=== PATIENT | male | born 1945 | race Caucasian/White ===

== ENCOUNTER 2022-01-17 03:32 | Observation (INO) | payer MEDICARE, OTHER ==
[2022-01-17] MEDS ORDERED: SODIUM CHLORIDE 0.9% 1,000 ML IV STA (03:44)
[2022-01-17] MEDS ORDERED: MORPHINE SULFATE 4 MG/ML SYRINGE IV STA (03:44)
--- NOTE | 2022-01-17 03:46 | ED ---
Chest Pain HPI - General Stated Complaint: Chest Pain Time Seen by Provider: 01/17/22 03:44 Review of Systems ROS Statement: Those systems with pertinent positive or pertinent negative responses have been documented in the HPI. ROS Other: All systems not noted in ROS Statement are negative. EKG Findings - EKG Comments: EKG Findings:: EKG is A. fib 54 QRS 86 QTc 410 Course Vital Signs 01/17/22 03:47 Pulse Rate 56 L Respiratory 20 Rate Blood Pressure 186/92 O2 Sat by Pulse 98 Oximetry Disposition Clinical Impression: Atypical chest pain, Chest pain Disposition: ADMITTED IP TO THIS HOSP Condition: Undetermined Instructions (If sedation given, give patient instructions): Chest Pain (ED) Is patient prescribed a controlled substance at d/c from ED?: No Referrals: Nonstaff,Physician [Primary Care Provider] - 1-2 days
--- NOTE | 2022-01-17 04:59 | XR ---
EXAMINATION TYPE: XR chest 1V portable DATE OF EXAM: 01/17/2022 COMPARISON: NONE HISTORY: Chest pain TECHNIQUE: FINDINGS: There is coarsening of the interstitial markings. No obvious heart failure. Heart is top no rmal in size. No definite pleural effusion. There are chest leads. IMPRESSION: Coarse lung markings could be fibrosis. No obvious heart failure.
[2022-01-17 05:18] LABS: Basophils % (A) 0 %; Eosinophils # (A) 0.2 k/uL (0-0.7); Eosinophils % (A) 2 %; HCT 45.8 % (39.0-53.0); HGB 14.3 gm/dL (13.0-17.5); Hypochromasia Slight; Lymphocytes % (A) 8 %; MCH 30.8 pg (25.0-35.0); MCHC 31.2 g/dL (31.0-37.0); MCV 98.8 fL (80.0-100.0); Mean Platelet Volume 10.1; Monocytes # (A) 0.6 k/uL (0-1.0); Monocytes % (A) 5 %; Neutrophils # (A) 10.3 k/uL (1.3-7.7); Neutrophils % (A) 84 %; Platelet Count 168 k/uL (150-450); RBC 4.63 m/uL (4.30-5.90); WBC 12.3 k/uL (3.8-10.6)
[2022-01-17 05:22] LABS: Partial Thromboplastin Time 23.1 sec (22.0-30.0)
[2022-01-17] MEDS ORDERED: NITROGLYCERIN SL TABS 0.4 MG TAB SUBLINGUAL PRN (05:27)
[2022-01-17] MEDS ORDERED: ASPIRIN 81 MG PO STA (05:27)
[2022-01-17 05:29] LABS: Albumin 4.3 g/dL (3.5-5.0); Calcium 9.5 mg/dL (8.4-10.2); Magnesium 1.4 mg/dL (1.6-2.3); Phosphorus 3.7 mg/dL (2.5-4.5); Potassium 4.5 mmol/L (3.5-5.1); Total Bilirubin 0.6 mg/dL (0.2-1.3); Total Protein 7.9 g/dL (6.3-8.2)
[2022-01-17] MEDS ORDERED: HEPARIN SODIUM 1,000 UN/ML (10ML VL) IV ONE (12:54)
[2022-01-17] MEDS ORDERED: HEPARIN SODIUM 1,000 UN/ML (10ML VL) IV PRN (12:54)
[2022-01-17] MEDS ORDERED: HEPARIN SOD,PORK IN 0.45% NACL 25,000 UNIT in 0.45% NACL 1 250ML.BAG IV SCH (13:00)
--- NOTE | 2022-01-17 13:05 | P.CRDCN ---
History of Present Illness Consult date: 01/17/22 History of present illness: History of Present Illness: The patient is a 76-year-old male who was transferred from [facility] in [place] with symptoms of chest discomfort. According to him he woke up with severe chest discomfort, worsening dyspnea that persisted and he was brought in to the emergency room. 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 He is very limited in his physical activity. He has dyspnea on exertion but denies significant chest discomfort in the past. He was noted to be in atrial fibrillation in the emergency room. Reviewing the papers from the snf the patient has a prior history of atrial fibrillation but unfortunately the list of his medication is not available. It is unclear if he had a prior history of obstructive CAD. According to the patient he heard the word atrial fibrillation but cannot recall that he was diagnosed with that. He cannot recall if he is on anticoagulation. He has chronic peripheral edema. He denies any dizziness or palpitation. He denies any PND or orthopnea. He has a history of hypertension, he is a nonsmoker. His lipid profile is not available to me. Medications: The list from the snf is not available Review of Systems: Respiratory: The patient has dyspnea on exertion but no recent wheezing or cough GI: No nausea or vomiting . No history of peptic ulcer disease. No recent GI bleed. : No hematuria or dysuria. Nervous System: No seizure. He has prior history of stroke twice with significant hemiplegia Physical Examination: 76-year-old male alert no apparent distress, obese,Blood pressure 160/80, Heart rate 70 Head: Normocephalic. Eyes: Sclerae nonicteric. Neck: Good carotid upstroke, no bruit, no jugular venous distention. Lungs: Clear to auscultation. Heart: Irregular rate and rhythm, S1-S2, no S3, no rub. Systolic ejection murmur. Abdomen: Soft nontender, positive bowel sounds no organomegaly. Extremities: +2 on the right and +1 on the left edema, intact distal pulses. Evidence of hemiplegia with right-sided weakness Labs: Hemoglobin 14.3, BUN 29, creatinine 1.46. Potassium 4.5. Troponin less than 0.012, chest x-ray no evidence of heart failure EKG: Atrial fibrillation with nonspecific ST-T wave changes Impression: 1. Chest discomfort of unclear etiology, no evidence of acute coronary syndrome. Could be related to GI origin 2. Atrial fibrillation appears to be chronic, anticoagulation status unclear 3. History of hypertension 4. History of stroke 5. Abnormal renal function of unknown duration 6. Peripheral edema Plan: 1. Obtain list of medication from the snf 2. Start IV heparin pending the list of the medication 3. Add beta chhaya, nitrate and statin 4. Obtain an echocardiogram with Doppler 5. Obtain a nuclear scan to rule out significant ischemic heart disease 6. Follow renal functions 7. Start IV Lasix and check NT proBNP 8. Depending on the results of the testing and the records from the snf further recommendations will be made. Thank you for this consult we will follow with you. Medications and Allergies Allergies Allergy/AdvReac Type Severity Reaction Status Date / Time No Known Allergies Allergy Verified 01/17/22 05:35 Physical Exam Vitals: Vital Signs Temp Pulse Pulse Resp BP Pulse Ox 01/17/22 09:51 98.4 F 70 20 160/88 98 01/17/22 05:39 67 20 168/84 01/17/22 03:59 67 01/17/22 03:47 56 L 20 186/92 98 Intake and Output 01/16/22 01/17/22 01/17/22 22:59 06:59 14:59 Other: Weight 129.727 kg Results 01/17/22 04:34 01/17/22 04:34 Cardiac Enzymes 01/17/22 01/17/22 01/17/22 Range/Units 04:34 04:34 07:39 AST 20 (17-59) U/L Troponin I <0.012 <0.012 (0.000-0.034) ng/mL 01/17/22 Range/Units 11:45 AST (17-59) U/L Troponin I <0.012 (0.000-0.034) ng/mL Coagulation 01/17/22 Range/Units 04:34 PT 11.0 (9.0-12.0) sec APTT 23.1 (22.0-30.0) sec CBC 01/17/22 Range/Units 04:34 WBC 12.3 H (3.8-10.6) k/uL RBC 4.63 (4.30-5.90) m/uL Hgb 14.3 (13.0-17.5) gm/dL Hct 45.8 (39.0-53.0) % Plt Count 168 (150-450) k/uL Comprehensive Metabolic Panel 01/17/22 Range/Units 04:34 Sodium 138 (137-145) mmol/L Potassium 4.5 (3.5-5.1) mmol/L Chloride 95 L (98-107) mmol/L Carbon Dioxide 26 (22-30) mmol/L BUN 29 H (9-20) mg/dL Creatinine 1.46 H (0.66-1.25) mg/dL Glucose 157 H (74-99) mg/dL Calcium 9.5 (8.4-10.2) mg/dL AST 20 (17-59) U/L ALT 18 (4-49) U/L Alkaline Phosphatase 97 (38-126) U/L Total Protein 7.9 (6.3-8.2) g/dL Albumin 4.3 (3.5-5.0) g/dL Current Medications Generic Name Dose Route Start Last Admin Trade Name Freq PRN Reason Stop Dose Admin Aspirin 325 mg 01/18/22 12:00 Aspirin 325 Mg Tab PO DAILY MERI Nitroglycerin 0.4 mg 01/17/22 05:27 Nitroglycerin Sl Tabs 0.4 Mg Tab SUBLINGUAL Q5M PRN Chest Pain Intake and Output 01/16/22 01/17/22 01/17/22 22:59 06:59 14:59 Other: Weight 129.727 kg 01/17/22 04:34 01/17/22 04:34
[2022-01-17] MEDS: NITROGLYCERIN OINT 1 INCH/GM PACKET TOPICAL SCH (13:14)
[2022-01-17] MEDS: FUROSEMIDE 10 MG/ML 4 ML VIAL IV SCH (13:14)
[2022-01-17] MEDS: ATORVASTATIN 40 MG TAB PO SCH (13:14)
[2022-01-17] MEDS: PANTOPRAZOLE 40 MG TABLET PO SCH (13:14)
[2022-01-17] MEDS: METOPROLOL TARTRATE 25 MG TAB PO SCH (13:14)
--- NOTE | 2022-01-17 13:20 | P.HPIM ---
History of Present Illness H&P Date: 01/17/22 Patient is a 76-year-old male with PMH of hypertension, glaucoma, BPH, GERD and diabetes mellitus that presents the ED for chest pain. Patient reports waking up last night with chest pain. Chest pain is substernal, pressure-like in nature with no radiation. He took his blood pressure noted to be 220s over 100s. He does not know which antihypertensive medication he takes. He attempted to take Tylenol and Tums without relief. He did state that nitroglycerin helped. He currently denies any chest pain. He reports chronic right lower extremity edema. He denies any headache, nausea or vomiting, fever chills, cough, shortness of breath, palpitations, changes in urination or bowel habits. No changes in appetite or weight. He denies any dizziness, numbness/weakness/tingling of the extremities. In the ED, he was noted to have a BP of 186/92. Vital signs were otherwise stable. CBC shows leukocytosis of 12.3. Coagulation panel negative. CMP showed chloride of 95, BUN of 29, creatinine 1.46 and glucose 157. Lactic acid 2.2. Magnesium level was 1.4. Troponin was less than 0.0123 with EKG showing atrial fibrillation with slow ventricular response. Chest x-ray showed findings of pulmonary fibrosis. Patient is admitted for chest pain, rule out acute coronary syndrome with ca rdiology consultation. Review of systems is negative except above. General: [non toxic], [no distress], [appears at stated age] Derm: [warm], [dry] Head: [atraumatic], [normocephalic], [symmetric] Eyes: [EOMI], [no lid lag], [anicteric sclera] Mouth: [no lip lesion], [mucus membranes moist] Cardiovascular: [Irregularly irregular], [no murmur], [positive DP pulse bilateral], Lungs: [CTA bilateral], [no rhonchi, no rales] , [no accessory muscle use] Abdominal: [soft], [ nontender to palpation], [no guarding], [no appreciable organomegaly] Ext: [no gross muscle atrophy], [2+ pitting edema right lower extremity], [no contractures] Neuro: [ CN II-XI grossly intact], [no focal neuro deficits] Psych: [Alert], [oriented], [appropriate affect] #Chest pain #Hypertensive urgency #Atrial fibrillation #Lactic acidosis #Acute kidney injury versus chronic kidney disease #Leukocytosis #Right lower extremity swelling #Hypomagnesemia #Diabetes mellitus #BPH #Glaucoma #Depression Patient presents with chest pain likely related to hypertensive urgency. Troponins have been trended and ACS has been ruled out. Cardiology has been consulted and recommended echocardiogram, nuclear stress test. He has been started on aspirin 81 mg by mouth daily and Lipitor 40 mg by mouth daily. Cardiology started heparin drip. Cardiology started Lasix 40 mg IV twice a day. Telemetry monitoring. Patient has been started on metoprolol 25 mg by mouth twice a day. Restart home medications Losartan 100 mg PO QD. His vital signs will be monitored and medication adjusted if necessary. Continue Metoprolol as above. Patient reports previous history of abnormal heart rhythm. He is not on any anticoagulation. Continue Heparin drip as above. Maintain K > 4 and Mg > 2. Likely related to dehydration. Resolved with IV hydration. Possibly on chronic kidney disease. Unknown baseline. Avoid nephrotoxins. R epeat BMP tomorrow morning. Leukocytosis likely reactive. No signs of active infection. Repeat CBC tomorrow morning. Obtain duplex to rule out DVT. Magnesium 1.4. Magnesium sulfate for gram IV ordered today. Repeat magnesium level tomorrow. Low dose insulin sliding scale with accuchecks QID and hypoglycemic precautions. Restart Flomax. Restart Latanoprost eye drops. Restart Paxil. DVT prophylaxis: [Heparin drip] Discussed with: [Patient] Anticipated discharge: [1-2 days] Anticipated discharge place: [Home] A total of [40] minutes was spent on the care of this complex patient more than 50% of the time was spent in counseling and care coordination. Patient names his Francy decision maker if he can't make decisions for himself. Patient would like to be full code. Medications and Allergies Allergies Allergy/AdvReac Type Severity Reaction Status Date / Time No Known Allergies Allergy Verified 01/17/22 05:35 Physical Exam Vitals: Vital Signs Temp Pulse Pulse Resp BP Pulse Ox 01/17/22 09:51 98.4 F 70 20 160/88 98 01/17/22 05:39 67 20 168/84 01/17/22 03:59 67 01/17/22 03:47 56 L 20 186/92 98 Intake and Output 01/16/22 01/17/22 01/17/22 22:59 06:59 14:59 Other: Weight 129.727 kg Results CBC & Chem 7: 01/17/22 04:34 01/17/22 04:34 Labs: Abnormal Lab Results - Last 24 Hours (Table) 01/17/22 01/17/22 01/17/22 Range/Units 04:34 04:34 04:34 WBC 12.3 H (3.8-10.6) k/uL Neutrophils # 10.3 H (1.3-7.7) k/uL Chloride 95 L (98-107) mmol/L BUN 29 H (9-20) mg/dL Creatinine 1.46 H (0.66-1.25) mg/dL Glucose 157 H (74-99) mg/dL Plasma Lactic Acid Bertram 2.2 H* (0.7-2.0) mmol/L Magnesium 1.4 L (1.6-2.3) mg/dL
[2022-01-17] MEDS: LOSARTAN 50 MG TAB PO SCH (13:52)
[2022-01-17] MEDS: MAGNESIUM SULFATE-D5W PMX 1 GM in DEXTROSE/WATER 1 100ML.BAG IVPB SCH ×3 (13:54→18:57)
--- NOTE | 2022-01-17 14:02 | US ---
EXAMINATION TYPE: US venous doppler duplex LE RT DATE OF EXAM: 01/17/2022 1:21 PM COMPARISON: NONE CLINICAL HISTORY: 76-year-old male rule out DVT. Right leg swelling, patient on blood thinners SIDE PERFORMED: Right TECHNIQUE: The lower extremity deep venous system is examined utilizing real time linear array sonog ben with graded compression, doppler sonography and color-flow sonography. FINDINGS: VESSELS IMAGED: Common Femoral Vein Deep Femoral Vein Greater Saphenous Vein * Femoral Vein Popliteal Vein Small Saphenous Vein * Proximal Calf Veins (* superficial vessels) Charrer notes: Difficult and limited study due to morbidly obese patient, EIV, GSV, CFV and DFV not imaged due to patient's pannus covering his upper thighs Right Leg: Visualized portions appear negative for DVT IMPRESSION: Limited assessment. 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 No DVT visualiz ed within the right femoral vein down into the upper calf veins.
[2022-01-17 14:58] LABS: Basophils % (A) 0 %; Eosinophils # (A) 0.2 k/uL (0-0.7); Eosinophils % (A) 2 %; HCT 45.6 % (39.0-53.0); HGB 14.4 gm/dL (13.0-17.5); Lymphocytes # (A) 1.3 k/uL (1.0-4.8); Lymphocytes % (A) 12 %; MCHC 31.6 g/dL (31.0-37.0); MCV 98.1 fL (80.0-100.0); Monocytes # (A) 0.7 k/uL (0-1.0); Monocytes % (A) 7 %; Neutrophils # (A) 8.8 k/uL (1.3-7.7); Neutrophils % (A) 79 %; Platelet Count 164 k/uL (150-450); RBC 4.65 m/uL (4.30-5.90); RDW 13.8 % (11.5-15.5); WBC 11.2 k/uL (3.8-10.6)
[2022-01-17 15:09] LABS: INR 1.1 (<1.2); Partial Thromboplastin Time 48.6 sec (22.0-30.0); Prothrombin Time 11.6 sec (9.0-12.0)
[2022-01-17 18:06] LABS: Glucose,Whole Blood 124 mg/dL (70-110)
[2022-01-17] MEDS: INSULIN ASPART (NovoLOG) 100 UNIT/ML VIAL SQ SCH (18:45)
[2022-01-17 22:34] LABS: Glucose,Whole Blood 113 mg/dL (70-110)
[2022-01-18] MEDS: MAGNESIUM SULFATE-D5W PMX 1 GM in DEXTROSE/WATER 1 100ML.BAG IVPB SCH (00:20)
[2022-01-18] MEDS: FUROSEMIDE 10 MG/ML 4 ML VIAL IV SCH ×3 (00:20→21:04)
[2022-01-18] MEDS: INSULIN ASPART (NovoLOG) 100 UNIT/ML VIAL SQ SCH ×5 (00:21→21:05)
[2022-01-18] MEDS: LATANOPROST 0.005% OPHTH DROPS 2.5 ML BTL BOTH EYES SCH ×2 (00:21→21:05)
[2022-01-18] MEDS: PARoxetine 10 MG TAB PO SCH ×2 (00:21→21:06)
[2022-01-18] MEDS: METOPROLOL TARTRATE 25 MG TAB PO SCH ×3 (00:21→21:06)
[2022-01-18] MEDS: NITROGLYCERIN OINT 1 INCH/GM PACKET TOPICAL SCH ×4 (00:43→21:06)
[2022-01-18 01:57] LABS: Basophils % (A) 0 %; Eosinophils # (A) 0.1 k/uL (0-0.7); Eosinophils % (A) 2 %; HCT 38.1 % (39.0-53.0); Hypochromasia Slight; Lymphocytes # (A) 0.8 k/uL (1.0-4.8); Lymphocytes % (A) 9 %; MCH 30.9 pg (25.0-35.0); MCHC 31.4 g/dL (31.0-37.0); MCV 98.3 fL (80.0-100.0); Mean Platelet Volume 9.9; Monocytes # (A) 0.7 k/uL (0-1.0); Monocytes % (A) 8 %; Neutrophils # (A) 7.1 k/uL (1.3-7.7); Neutrophils % (A) 80 %; Platelet Count 125 k/uL (150-450); RBC 3.87 m/uL (4.30-5.90); RDW 13.8 % (11.5-15.5); WBC 8.8 k/uL (3.8-10.6)
[2022-01-18 02:52] LABS: INR 1.1 (<1.2); Prothrombin Time 11.3 sec (9.0-12.0)
[2022-01-18] MEDS ORDERED: CAFFEINE CITRATE 60 MG/3 ML VIAL IV PRN (06:00)
[2022-01-18] MEDS ORDERED: REGADENOSON 0.4 MG/5 ML SYRINGE IV PRN (06:00)
[2022-01-18] MEDS ORDERED: AMINOPHYLLINE 500 MG/20 ML VIAL IV PRN (06:00)
--- NOTE | 2022-01-18 06:37 | P.PN ---
Subjective Progress Note Date: 01/18/22 Principal diagnosis: Chest discomfort This is a 76-year-old gentleman with a past medical history significant for atrial fibrillation of unknown etiology not on oral anticoagulation at home was admitted to the hospital for an extended care facility to the hospital with a chest discomfort and ruled out for acute coronary event. He was seen this morning. He still have a mild ongoing chest discomfort. Acute coronary event was ruled out. Vitals are stable. He is in process of having a stress test as well as an echocardiogram. Currently he is on heparin IV. He to be switched into oral anticoagulation later on today. Further recommendation to follow the stress test and echocardiogram. Objective - Vital Signs Vital signs: Vital Signs Temp 98.3 F 01/18/22 02:00 Pulse 75 01/18/22 02:00 Resp 20 01/17/22 20:03 BP 124/70 01/18/22 02:00 Pulse Ox 97 01/18/22 02:00 FiO2 Intake & Output 01/17/22 01/17/22 01/18/22 06:59 18:59 06:59 Intake Total 136.18 Output Total 1200 Balance -1063.82 Weight 129.727 kg 129.727 kg Intake: Intake, IV Titration 136.18 Amount Heparin Sod,Pork in 0.45% 136.18 NaCl 25,000 unit In 0.45 % NaCl 1 250ml.bag @ 7. 709 UNITS/KG/HR 10.001 mls/hr IV .Q24H MERI Rx#: [id number] Output: Urine 1200 Other: Voiding Method External Catheter # Voids 600 - Constitutional General appearance: Present: no acute distress - Respiratory Respiratory: bilateral: CTA - Cardiovascular Rhythm: irregularly irregular Heart sounds: normal: S1, S2 - Labs CBC & Chem 7: 01/18/22 01:34 01/17/22 04:34 Labs: Abnormal Lab Results - Last 24 Hours (Table) 01/17/22 01/17/22 01/17/22 Range/Units 14:26 14:26 18:05 WBC 11.2 H (3.8-10.6) k/uL RBC (4.30-5.90) m/uL Hgb (13.0-17.5) gm/dL Hct (39.0-53.0) % Plt Count (150-450) k/uL Neutrophils # 8.8 H (1.3-7.7) k/uL Lymphocytes # (1.0-4.8) k/uL APTT 48.6 H (22.0-30.0) sec POC Glucose (mg/dL) 124 H (70-110) mg/dL 01/17/22 01/17/22 01/18/22 Range/Units 19:25 22:33 01:34 WBC (3.8-10.6) k/uL RBC 3.87 L (4.30-5.90) m/uL Hgb 12.0 L (13.0-17.5) gm/dL Hct 38.1 L (39.0-53.0) % Plt Count 125 L (150-450) k/uL Neutrophils # (1.3-7.7) k/uL Lymphocytes # 0.8 L (1.0-4.8) k/uL APTT 31.0 H (22.0-30.0) sec POC Glucose (mg/dL) 113 H (70-110) mg/dL Assessment and Plan Assessment: Assessment #1 atypical chest discomfort #2 atrial fibrillation of unknown etiology Plan #1 acute coronary event was ruled out #2 follow-up with the patient after the stress test and echo Continue IV heparin for now
[2022-01-18 07:17] LABS: Glucose,Whole Blood 99 mg/dL (70-110)
[2022-01-18] MEDS ORDERED: REGADENOSON 0.4 MG/5 ML SYRINGE IV ONE (08:00)
[2022-01-18] MEDS: TAMSULOSIN 0.4 MG CAP.ER.24H PO SCH (08:01)
[2022-01-18] MEDS: metOLazone 5 MG TAB PO SCH (08:02)
[2022-01-18] MEDS: ATORVASTATIN 40 MG TAB PO SCH (08:02)
[2022-01-18] MEDS: PANTOPRAZOLE 40 MG TABLET PO SCH (08:02)
[2022-01-18] MEDS: LOSARTAN 50 MG TAB PO SCH (08:02)
[2022-01-18 08:11] LABS: African American GFR (CKD) 59 (>60 ml/min/1.73 sqM); Anion Gap 14 mmol/L; Blood Urea Nitrogen 32 mg/dL (9-20); Calcium 9.2 mg/dL (8.4-10.2); Carbon Dioxide 27 mmol/L (22-30); Chloride 95 mmol/L (98-107); Glucose 109 mg/dL (74-99); Non-African American GFR(CKD) 51 (>60 ml/min/1.73 sqM); Potassium 3.9 mmol/L (3.5-5.1); Sodium 136 mmol/L (137-145)
[2022-01-18 09:52] LABS: LDL Cholesterol,Calculated 88.3 mg/dL (0.0-131.0)
[2022-01-18 10:48] LABS: HCT 45.5 % (39.6-50.0); HGB 14.7 g/dL (13.0-17.0); MCH 30.9 pg (27.0-32.0); MCHC 32.3 g/dL (32.0-37.0); MCV 95.6 fL (80.0-97.0); Mean Platelet Volume 12.2 fL (9.5-12.2); NRBC Per 100 WBC 0 /100 WBCS (0.0-0.0); Platelet Count 146 X 10*3/uL (140-440); RBC 4.76 X 10*6/uL (4.40-5.60); RDW 14.2 % (11.5-14.5)
--- NOTE | 2022-01-18 11:34 | CA ---
Transthoracic Echo Report Name: Babar Altamirano Age: 76 Gender: M : 1945 Exam Date: 01/18/2022 08:24 Exam Location: [facility] Ht (in): 70 Wt (lb): 286 Ordering Physician: Joan Quinonez MD ([id number]) Attending/Referring Phys: Clinical Informatics Educator Gris Zhang RDCS Procedure CPT: Indications: CP Cardiac Hx: Technical Quality: Fair Contrast 1: Total Dose (mL): Contrast 2: Total Dose (mL): MEASUREMENTS (Male / Female) Normal Values 2D ECHO LV Diastolic Diameter PLAX 3.9 cm 4.2 - 5.9 / 3.9 - 5.3 cm LV Systolic Diameter PLAX 3.4 cm IVS Diastolic Thickness 1.8 cm 0.6 - 1.0 / 0.6 - 0.9 cm LVPW Diastolic Thickness 1.6 cm 0.6 - 1.0 / 0.6 - 0.9 cm LV Relative Wall Thickness 0.9 RV Internal Dim ED PLAX 2.6 cm LA Volume 74.7 cm??? 18 - 58 / 22 - 52 cm??? M-MODE Aortic Root Diameter MM 3.5 cm LA Systolic Diameter MM 5.2 cm LA Ao Ratio MM 1.5 AV Cusp Separation MM 2.0 cm DOPPLER AV Peak Velocity 80.3 cm/s AV Peak Gradient 2.6 mmHg LVOT Peak Velocity 80.5 cm/s LVOT Peak Gradient 2.6 mmHg MV E' Velocity 6.3 cm/s FINDINGS Left Ventricle Severely increased septal wall thickness. Normal left ventricular systolic function with no obvious regional wall motion abnormalities. Left ventricular ejection fraction is estimated at 55-60 %. Right Ventricle Normal right ventricular size and function. Right ventricular systolic pressure within normal limits. Right Atrium Normal right atrial size. Left Atrium Moderately increased left atrial volume. Mitral Valve Mild mitral regurgitation. Aortic Valve No aortic valve stenosis or regurgitation. Tricuspid Valve Mild tricuspid regurgitation. Pulmonic Valve Structurally normal pulmonic valve. Trace pulmonic regurgitation. Pericardium No pericardial effusion. Aorta Normal size aortic root and proximal ascending aorta. CONCLUSIONS Normal left ventricular dimension and systolic function Overall technically difficult study for interpretation Previewed by: Dr. Quintin Raza MD (Electronically Signed) Final Date: 18 January 2022 11:33
[2022-01-18] MEDS ORDERED: ASPIRIN 325 MG TAB PO SCH (12:00)
[2022-01-18 13:44] LABS: Glucose,Whole Blood 102 mg/dL (70-110)
[2022-01-18 14:47] LABS: Chol/HDL Ratio 3.14 Ratio; LDL Cholesterol,Calculated 68.5 mg/dL (0.0-131.0)
--- NOTE | 2022-01-18 15:48 | NM ---
EXAMINATION TYPE: NM stress lexiscan cardiolite DATE OF EXAM: 01/18/2022 COMPARISON: NONE HISTORY: 76-year-old male with chest pain TECHNIQUE: After the intravenous administration of 10.6 mCi Tc 99m Sestamibi - Cardiolite resting SP ECT images acquired 125 minutes post injection. The patient received 0.4mg Lexiscan, 25.6 mCi Tc 99m Sestamibi - Stress images obtained [address] injection FINDINGS: Review of stress and rest SPECT images demonstrates decreased perfusion on stress along the basal inf erior wall. However, this is not corroborated on the polar maps. This was performed as a nongated tete dy given the patient's variable heart rhythm. Because it was nongated, left ventricular EF could also not be calculated. TID is calculated at 0.76, within normal limits. IMPRESSION: Equivocal between an area of reversibility along the basal inferior wall versus diaphragmatic attenua tion. The finding is not corroborated on polar maps. Further clinical correlation recommended. This w as a nongated study given the patient's variable heart rhythm.
--- NOTE | 2022-01-18 16:29 | P.PN ---
Subjective Progress Note Date: 01/18/22 Hospital course: Patient is a very pleasant 76-year-old male with a past medical history of hypertension, CVA resulting in right sided hemiplegia, atrial fibrillation not on anticoagulation, nia-oizlxot-rcafgzlun diabetes mellitus, GERD, and BPH. Patient resides at [facility] and presented to the emergency department with a chief complaint of chest pain. Patient reported pain aced to substernal chest described as a pressure-like sensation. Patient reports this pain awoken him from sleep and he did take Tylenol and Tums without any relief and was given nitroglycerin by EMS in which she reports resulted in improvement of his pain. Upon arrival to the emergency department patient underwent full evaluation. He was initially found to be in hypertensive urgency with blood pressure 186/92. EKG was completed revealing atrial fibrillation with a slowed ventricular response of 54 bpm. Troponin was negative at less than 0.012, proBNP 2430. CBC and CMP were completed revealing mild leukocytosis with WBC count of 11.2, hypomagnesemia with magnesium of 1.4 and elevated renal function with BUN of 29, creatinine 1.46, and GFR 45. Patient received 4 g IV magnesium for re placement. Patient was admitted under services of consultation to cardiology. Troponins were trended and all negative at less than 0.0123 draws. Lipid profile unremarkable. TSH 0.667. Right lower extremity venous Doppler was completed and negative for DVT. Echocardiogram and Lexiscan stress test also completed and pending results. Physical exam: Vital signs reviewed and stable. General: Nontoxic, no distress and appears stated age. Derm: Skin warm and dry, normal coloration for ethnicity. Head: Atraumatic, normocephalic and symmetric. Eyes: EOMs intact, no lid lag, and anicteric sclera Mouth: no lip lesions, mucus membranes moist Cardiovascular: regular rate and rhythm with normal S1S2, no murmur, positive posterior tibial pulses bilaterally, and cap refill < 2 seconds. Lungs: Respirations even, regular, and unlabored on room air. Lungs CTA bilaterally, no rhonchi, no rales, no wheezing, and no accessory muscle usage. Abdominal: soft, nontender to palpation, no guarding, no appreciable organomegaly Ext: No gross muscle atrophy, no edema, no contractures. Right-sided hemiparesis. Right lower extremity 3+ pitting edema. Neuro: Speech clear, face symmetrical and CN II-XII grossly intact with no noted focal neuro deficits Psych: Alert and oriented to person, place, time, and situation. Appropriate and pleasant affect. 76-year-old male with a past medical history of hypertension, Assessment and Plan of Care: Chest pain, rule out acute coronary event -Cardiology following, took patient for Lexiscan stress testonins -Cardiac diet -Continue daily aspirin, atorvastatin, losartan, and metoprolol -Lipid profile unremarkable -Echocardiogram completed and results pending. Hypertension -Monitor vital signs and continue daily medication regimen with losartan and metoprolol. Hyperlipidemia -Continue daily medication regimen with atorvastatin. -Lipid profile unremarkable. History CVA with right-sided hemiplegia -Safe and supportive care with assistance as needed. BPH -Continue daily medication regimen of Flomax. CODE STATUS: DO NOT RESUSCITATE with the exception of medical treatment including defibrillation and intubation. DVT prophylaxis: Heparin Discussed with: patient and RN Anticipated discharge date: later today versus tomorrow pending results of stress test and echocardiogram. Anticipated discharge place: return to [facility] A total of 35 minutes was spent on the care of this complex patient more than 50% of the time was spent in counseling and care coordination. I reviewed the documentation as provided by the RUBY above, who is the original author of this note. I agree with the documented assessment and plan, with the following changes: none Objective - Vital Signs Vital signs: Vital Signs Temp 97.9 F 01/18/22 07:10 Pulse 60 01/18/22 07:10 Resp 18 01/18/22 07:10 BP 131/78 01/18/22 07:10 Pulse Ox 97 01/18/22 07:10 FiO2 Intake & Output 01/17/22 01/18/22 01/18/22 18:59 06:59 18:59 Intake Total 136.18 Output Total 1200 Balance -1063.82 Weight 129.727 kg Intake: Intake, IV Titration 136.18 Amount Heparin Sod,Pork in 0.45% 136.18 NaCl 25,000 unit In 0.45 % NaCl 1 250ml.bag @ 7. 709 UNITS/KG/HR 10.001 mls/hr IV .Q24H MERI Rx#: [id number] Output: Urine 1200 Other: Voiding Method External Catheter # Voids 600 - Labs CBC & Chem 7: 01/18/22 07:14 01/18/22 07:14 Labs: Abnormal Lab Results - Last 24 Hours (Table) 01/17/22 01/17/22 01/17/22 Range/Units 14:26 14:26 18:05 WBC 11.2 H (3.8-10.6) k/uL RBC (4.30-5.90) m/uL Hgb (13.0-17.5) gm/dL Hct (39.0-53.0) % Plt Count (150-450) k/uL Neutrophils # 8.8 H (1.3-7.7) k/uL Lymphocytes # (1.0-4.8) k/uL APTT 48.6 H (22.0-30.0) sec Sodium (137-145) mmol/L Chloride (98-107) mmol/L BUN (9-20) mg/dL Creatinine (0.66-1.25) mg/dL Glucose (74-99) mg/dL POC Glucose (mg/dL) 124 H (70-110) mg/dL 01/17/22 01/17/22 01/18/22 Range/Units 19:25 22:33 01:34 WBC (3.8-10.6) k/uL RBC 3.87 L (4.30-5.90) m/uL Hgb 12.0 L (13.0-17.5) gm/dL Hct 38.1 L (39.0-53.0) % Plt Count 125 L (150-450) k/uL Neutrophils # (1.3-7.7) k/uL Lymphocytes # 0.8 L (1.0-4.8) k/uL APTT 31.0 H (22.0-30.0) sec Sodium (137-145) mmol/L Chloride (98-107) mmol/L BUN (9-20) mg/dL Creatinine (0.66-1.25) mg/dL Glucose (74-99) mg/dL POC Glucose (mg/dL) 113 H (70-110) mg/dL 01/18/22 01/18/22 Range/Units 07:14 07:14 WBC (3.8-10.6) k/uL RBC (4.30-5.90) m/uL Hgb (13.0-17.5) gm/dL Hct (39.0-53.0) % Plt Count (150-450) k/uL Neutrophils # (1.3-7.7) k/uL Lymphocytes # (1.0-4.8) k/uL APTT 59.8 H (22.0-30.0) sec Sodium 136 L (137-145) mmol/L Chloride 95 L (98-107) mmol/L BUN 32 H (9-20) mg/dL Creatinine 1.33 H (0.66-1.25) mg/dL Glucose 109 H (74-99) mg/dL POC Glucose (mg/dL) (70-110) mg/dL
[2022-01-18 17:26] LABS: Glucose,Whole Blood 176 mg/dL (70-110)
[2022-01-18 19:54] LABS: Glucose,Whole Blood 201 mg/dL (70-110)
--- NOTE | 2022-01-19 06:47 | P.PN ---
Subjective Progress Note Date: 01/19/22 Principal diagnosis: Chest discomfort This is a 76-year-old gentleman with a past medical history significant for atrial fibrillation of unknown etiology not on oral anticoagulation at home was admitted to the hospital for an extended care facility to the hospital with a chest discomfort and ruled out for acute coronary event. The patient was seen this morning. He continues to be chest pain-free. He underwent myocardial perfusion imaging stress test which showed the eye from attenuation versus small reversibility. Overall the findings on the stress test are more risk. The patient is chest pain-free. His creatinine is elevated. With that being said on a consider conservative medical approach giving his age and poor functional capacity. I'm going to start him on oral nitrate and from a cardiovascular standpoint of view, the patient can be discharged home. DC h eparin and start the patient on oral anticoagulation. The echo showed normal LV function. Objective - Vital Signs Vital signs: Vital Signs Temp 98.1 F 01/19/22 01:12 Pulse 68 01/19/22 01:12 Resp 14 01/19/22 01:12 BP 135/74 01/19/22 01:12 Pulse Ox 98 01/19/22 01:12 FiO2 Intake & Output 01/18/22 01/18/22 01/19/22 06:59 18:59 06:59 Intake Total 136.18 480 Output Total 1200 830 400 Balance -1063.82 -350 -400 Weight 129.727 kg Intake: Intake, IV Titration 136.18 Amount Heparin Sod,Pork in 0.45% 136.18 NaCl 25,000 unit In 0.45 % NaCl 1 250ml.bag @ 7. 709 UNITS/KG/HR 10.001 mls/hr IV .Q24H [facility] Rx#: [id number] Oral 480 Output: Urine 1200 830 400 Stool 0 Other: Voiding Method External Catheter External Catheter External Catheter # Voids 600 5 # Bowel Movements 0 - Constitutional General appearance: Present: no acute distress - Respiratory Respiratory: bilateral: CTA - Cardiovascular Rhythm: irregularly irregular Heart sounds: normal: S1, S2 - Labs CBC & Chem 7: 01/18/22 07:14 01/18/22 07:14 Labs: Abnormal Lab Results - Last 24 Hours (Table) 01/17/22 01/18/22 01/18/22 Range/Units 14:26 07:14 07:14 WBC 10.30 H (4.50-10.00) X 10*3/uL APTT (22.0-30.0) sec Sodium 136 L (137-145) mmol/L Chloride 95 L (98-107) mmol/L BUN 32 H (9-20) mg/dL Creatinine 1.33 H (0.66-1.25) mg/dL Glucose 109 H (74-99) mg/dL POC Glucose (mg/dL) (70-110) mg/dL HDL Cholesterol 38.50 L (40.00-60.00) mg/dL 01/18/22 01/18/22 01/18/22 Range/Units 07:14 17:25 19:52 WBC (4.50-10.00) X 10*3/uL APTT 59.8 H (22.0-30.0) sec Sodium (137-145) mmol/L Chloride (98-107) mmol/L BUN (9-20) mg/dL Creatinine (0.66-1.25) mg/dL Glucose (74-99) mg/dL POC Glucose (mg/dL) 176 H 201 H (70-110) mg/dL HDL Cholesterol (40.00-60.00) mg/dL Assessment and Plan Assessment: Assessment #1 atypical chest discomfort #2 atrial fibrillation of unknown etiology Plan #1 acute coronary event was ruled out #2 stress tests finding are at low risk #3 DC heparin and start the patient on oral anticoagulant
[2022-01-19 07:25] LABS: Glucose,Whole Blood 126 mg/dL (70-110)
[2022-01-19 07:50] VITALS: RESP 18
[2022-01-19] MEDS ORDERED: ASPIRIN 81 MG PO SCH (09:00)
[2022-01-19] MEDS ORDERED: APIXABAN 2.5 MG TABLET PO SCH (09:00)
[2022-01-19] MEDS ORDERED: ISOSORBIDE MONONITRATE ER 30 MG TAB.ER.24H PO SCH (09:00)
--- NOTE | 2022-01-19 09:32 | P.DS ---
Providers Date of admission: 01/17/22 05:27 Expected date of discharge: 01/19/22 Attending physician: Sun Garza MD Consults: 01/17/22 08:39 Consult Physician Routine Consulting Provider: Joan Quinonez Consult Reason/Comments: chest pain Do you want consulting provider notified?: Yes Primary care physician: Physician Nonstaff Hospital Course: Discharge Diagnosis: Chest pain, acute coronary event ruled out. Metoprolol dose was decreased and patient was started on isosorbide mononitrate. Chronic persistent atrial fibrillation and started on oral anticoagulant with Eliquis. Acute kidney injury on chronic kidney disease, improved. Hypertension, Monitor vital signs and continue daily medication regimen with losartan and metoprolol. Hyperlipidemia. Continue daily medication regimen with atorvastatin. Hbz-Dardbwa-gvyjihjid diabetes mellitus. Resume glipizide and metformin. History of CVA with right-sided hemiplegia. Safe and supportive care with assistance as needed. BPH. Continue daily medication regimen of Flomax. Hospital Course: Patient is a very pleasant 76-year-old male with a past medical history of hypertension, CVA resulting in right sided hemiplegia, atrial fibrillation not on anticoagulation, wfw-qdczhoh-rgkxjlqdr diabetes mellitus, GERD, and BPH. Ortega delatorre resides at [facility] and presented to the emergency department with a chief complaint of chest pain. Patient reported pain aced to substernal chest described as a pressure-like sensation. Patient reports this pain awoken him from sleep and he did take Tylenol and Tums without any relief and was given nitroglycerin by EMS in which she reports resulted in improvement of his pain. Upon arrival to the emergency department patient underwent full evaluation. He was initially found to be in hypertensive urgency with blood pressure 186/92. EKG was completed revealing atrial fibrillation with a slowed ventricular response of 54 bpm. Troponin was negative at less than 0.012, proBNP 2430. CBC and CMP were completed revealing mild leukocytosis with WBC count of 11.2, hypomagnesemia with magnesium of 1.4 and elevated renal function with BUN of 29, creatinine 1.46, and GFR 45. Patient received 4 g IV magnesium for replacement. Patient was admitted under services of consultation to cardiology. Troponins were trended and all negative at less than 0.0123 draws. Lipid profile unremarkable. TSH 0.667. Right lower extremity venous Doppler was completed and negative for DVT. Echocardiogram revealing a preserved EF of 55- 60% with mild mitral and tricuspid regurgitation. Lexiscan stress test also completed and reviewed by chemical milling processor recommending medical management starting patient on oral nitrite isosorbide mononitrate and oral anticoagulation with Eliquis. Patient is medically stable for discharge at this time. Patient to return to [facility]. Physical exam: Vital signs reviewed and stable. General: Nontoxic, no distress and appears stated age. Derm: Skin warm and dry, normal coloration for ethnicity. Head: Atraumatic, normocephalic and symmetric. Eyes: EOMs intact, no lid lag, and anicteric sclera Mouth: no lip lesions, mucus membranes moist Cardiovascular: regular rate and rhythm with normal S1S2, no murmur, positive posterior tibial pulses bilaterally, and cap refill < 2 seconds. Lungs: Respirations even, regular, and unlabored on room air. Lungs CTA bilaterally, no rhonchi, no rales, no wheezing, and no accessory muscle usage. Abdominal: soft, nontender to palpation, no guarding, no appreciable organomegaly Ext: No gross muscle atrophy, no edema, no contractures. Right-sided hemiparesis. Right lower extremity 3+ pitting edema. Neuro: Speech clear, face symmetrical and CN II-XII grossly intact with no noted focal neuro deficits Psych: Alert and oriented to person, place, time, and situation. Appropriate and pleasant affect. 76-year-old male with a past medical history of hypertension, A total of 39 minutes of time were spent preparing this complex discharge summary. Pt was discharged on 01/19/22 at 9:30 AM I reviewed the documentation as provided by the RUBY above, who is the original author of this note. I agree with the documented assessment and plan, with the following changes: none Patient Condition at Discharge: Stable Plan - Discharge Summary New Discharge Prescriptions: New Aspirin 81 mg PO DAILY tab Apixaban [Eliquis] 2.5 mg PO BID 30 Days #60 tab Atorvastatin [Lipitor] 40 mg PO DAILY 30 Days #30 tab Isosorbide Mononitrate ER [Imdur] 30 mg PO DAILY 30 Days #30 tab Continue metFORMIN HCL 500 mg PO BID Cholecalciferol [Vitamin D3 (25 Mcg = 1000 Iu)] 25 mcg PO DAILY Sennosides [Senokot] 8.6 mg PO DAILY@1100 polyethylene glycoL 3350 [Miralax] 17 gm PO DAILY PARoxetine [Paxil] 10 mg PO HS@1999 Omeprazole 20 mg PO DAILY Losartan Potassium [Cozaar] 100 mg PO DAILY glipiZIDE [Glucotrol] 5 mg PO HS Tamsulosin [Flomax] 0.4 mg PO HS@2000 Docusate [Colace] 200 mg PO HS Artificial Tears-Hypromellose [Artificial Tear Drops] 2 drops BOTH EYES Q4H PRN PRN Reason: dry eyes Vit C/E/Zn/Coppr/Lutein/Zeaxan [Preservision Areds 2 Softgel] 1 cap PO BID Acetaminophen Tab [Tylenol] 1,000 mg PO TID@0700,1300,1900 Sennosides [Senokot] 17.2 mg PO DAILY@0800 Primidone [Mysoline] 50 mg PO HS@1999 Potassium Chloride ER [K-Dur 20] 20 meq PO HS metOLazone [Zaroxolyn] 5 mg PO DAILY Magnesium Oxide 400 mg PO HS Latanoprost/Pf [Latanoprost 0.005% Eye Drop] 1 drop BOTH EYES HS@1999 glipiZIDE [Glucotrol] 10 mg PO DAILY Gabapentin [Neurontin] 400 mg PO BID #6 cap Changed Metoprolol Tartrate [Lopressor] 25 mg PO BID #0 Discontinued Acetaminophen Tab [Tylenol Tab] 1,000 mg PO DAILY PRN PRN Reason: Pain Atorvastatin Calcium 20 mg PO HS@2000 Discharge Medication List Acetaminophen Tab [Tylenol] 1,000 mg PO TID@0700,1300,1900 01/17/22 [History] Artificial Tears-Hypromellose [Artificial Tear Drops] 2 drops BOTH EYES Q4H PRN 01/17/22 [History] Cholecalciferol [Vitamin D3 (25 Mcg = 1000 Iu)] 25 mcg PO DAILY 01/17/22 [History] Docusate [Colace] 200 mg PO HS 01/17/22 [History] Latanoprost/Pf [Latanoprost 0.005% Eye Drop] 1 drop BOTH EYES HS@199901/17/22 [History] Losartan Potassium [Cozaar] 100 mg PO DAILY 01/17/22 [History] Magnesium Oxide 400 mg PO HS 01/17/22 [History] Omeprazole 20 mg PO DAILY 01/17/22 [History] PARoxetine [Paxil] 10 mg PO HS@199901/17/22 [History] Potassium Chloride ER [K-Dur 20] 20 meq PO HS 01/17/22 [History] Primidone [Mysoline] 50 mg PO HS@199901/17/22 [History] Sennosides [Senokot] 8.6 mg PO DAILY@1100 01/17/22 [History] Sennosides [Senokot] 17.2 mg PO DAILY@0800 01/17/22 [History] Tamsulosin [Flomax] 0.4 mg PO HS@199901/17/22 [History] Vit C/E/Zn/Coppr/Lutein/Zeaxan [Preservision Areds 2 Softgel] 1 cap PO BID 01/17/22 [History] glipiZIDE [Glucotrol] 5 mg PO HS 01/17/22 [History] glipiZIDE [Glucotrol] 10 mg PO DAILY 01/17/22 [History] metFORMIN HCL 500 mg PO BID 01/17/22 [History] metOLazone [Zaroxolyn] 5 mg PO DAILY 01/17/22 [History] polyethylene glycoL 3350 [Miralax] 17 gm PO DAILY 01/17/22 [History] Apixaban [Eliquis] 2.5 mg PO BID 30 Days #60 tab 01/19/22 [Rx] Aspirin 81 mg PO DAILY tab 01/19/22 [Rx] Atorvastatin [Lipitor] 40 mg PO DAILY 30 Days #30 tab 01/19/22 [Rx] Gabapentin [Neurontin] 400 mg PO BID #6 cap 01/19/22 [Rx] Isosorbide Mononitrate ER [Imdur] 30 mg PO DAILY 30 Days #30 tab 01/19/22 [Rx] Metoprolol Tartrate [Lopressor] 25 mg PO BID #0 01/19/22 [Rx] Follow up Appointment(s)/Referral(s): Quintin Raza MD [STAFF PHYSICIAN] - 1 Week Hilario Mendez MD [STAFF PHYSICIAN] - 1 Week Patient Instructions/Handouts: Chest Pain (ED), Costochondritis (DC), Hypertensive Crisis (DC), Hypertension (DC) Activity/Diet/Wound Care/Special Instructions: Activity: As tolerated. Take breaks as needed. Diet: Heart healthy and carb consistent diet. Avoid salts, or foods with hidden salts such as canned or boxed foods and frozen dinners. Extra salt makes your heart work harder and traps the fluid in your body for longer. Special Instructions: Take all of your medications as directed and remember to keep all of your doctor's appointments and follow-up as needed. Thank you for allowing us to participate in your care, it was truly a pleasure having you for our patient!!! Discharge Disposition: TRANSFER TO SNF/ECF
[2022-01-19] MEDS: metOLazone 5 MG TAB PO SCH (09:47)
[2022-01-19] MEDS: TAMSULOSIN 0.4 MG CAP.ER.24H PO SCH (09:47)
[2022-01-19] MEDS: ATORVASTATIN 40 MG TAB PO SCH (09:47)
[2022-01-19] MEDS: METOPROLOL TARTRATE 25 MG TAB PO SCH (09:47)
--- NOTE | 2022-01-19 09:47 | CA ---
Lexiscan Nuclear Stress Test Report Name: Babar Altamirano Exam Date: 01/18/2022 12:20 Exam Location: [facility] Stress Ht (in): 70 Wt (lb): 286 BSA: 2.43 Ordering Phys: Joan Quinonez MD Referring Phys: QUINONEZ Technologist: Jeremy Rivera Age: 76 Gender: M : 1945 Procedure CPT: Indications: Reflex order-Stress test ICD-10 Codes: Patient History: Chest Pain Medications: Meds past 24 hrs: Pretest Chest Pain: STRESS TEST Lexiscan Protocol Exercise Duration (min:sec): 02:[address] Depressions (mm): Angina Score: Boykin Score: Resting HR (bpm): 60 Peak HR (bpm): 87 Resting BP (mmHg): 97 / 59 Peak BP (mmHg): 112 / 36 MPHR: 142 Target HR: 121 % MPHR: 61 METS: 1.0 Total Dose: Peak Dose: Atropine: Double Product: 9744 BP Response: Stress Termination: Infusion complete Stress Symptoms: No chest pain or symptoms Stress Summary: ECG ANALYSIS Resting ECG: Stress ECG: CONCLUSIONS Nondiagnostic electrocardiogram stress testing response to Lexiscan Please follow up on the Cardiolite portion Dr. Quintin Raza MD (Electronically Signed) Final Date: 19 January 2022 09:46
[2022-01-19] MEDS: FUROSEMIDE 10 MG/ML 4 ML VIAL IV SCH (09:48)
[2022-01-19] MEDS: NITROGLYCERIN OINT 1 INCH/GM PACKET TOPICAL SCH (09:48)
[2022-01-19] MEDS: INSULIN ASPART (NovoLOG) 100 UNIT/ML VIAL SQ SCH ×2 (09:48→13:21)
[2022-01-19] MEDS: PANTOPRAZOLE 40 MG TABLET PO SCH (09:48)
[2022-01-19] MEDS: LOSARTAN 50 MG TAB PO SCH (09:48)
[2022-01-19 12:03] LABS: Glucose,Whole Blood 166 mg/dL (70-110)
[2022-01-19 16:17] VITALS: BP 99/59; PULSE 84; TEMP 98
== END 2022-01-19 16:28 ==
LOC: EC 03:32 → 6NMEDSUR 05:27
PROVIDERS: ADMIT Internal Medicine; ATTEND Internal Medicine
DX: R07.89 Other chest pain (principal); I48.19 Other persistent atrial fibrillation; N17.9 Acute kidney failure, unspecified; I12.9 Hypertensive chronic kidney disease with stage 1 through stage 4 chronic kidney disease, or unspecified chronic kidney disease; N18.9 Chronic kidney disease, unspecified; I69.351 Hemiplegia and hemiparesis following cerebral infarction affecting right dominant side; H40.9 Unspecified glaucoma; I08.1 Rheumatic disorders of both mitral and tricuspid valves; N40.0 Benign prostatic hyperplasia without lower urinary tract symptoms; K21.9 Gastro-esophageal reflux disease without esophagitis; E11.22 Type 2 diabetes mellitus with diabetic chronic kidney disease; E66.01 Morbid (severe) obesity due to excess calories; J84.10 Pulmonary fibrosis, unspecified; I16.0 Hypertensive urgency; E87.2 Acidosis; I37.1 Nonrheumatic pulmonary valve insufficiency; D72.829 Elevated white blood cell count, unspecified; E83.42 Hypomagnesemia; E78.5 Hyperlipidemia, unspecified; F32.A Depression, unspecified; Z79.82 Long term (current) use of aspirin; Z66 Do not resuscitate; Z68.41 Body mass index [BMI] 40.0-44.9, adult
CPT/HCPCS: 96366 ×3; 96376 ×3; 96361; 96365; 96367; 96375; 99285; 36415; 93005; 93017; 93306; 97163; 97167; 83880; 80061 ×2; 80053; 80048; 84443; 83605; 83735; 84100; 84484; 85025 ×2; 85027; 85610 ×2; 85730 ×2; 71045; 93971; 78452; G0378 ×3; A9500; J2270; J1940 ×3; J1644 ×3; J3475 ×2; J2785

== ENCOUNTER 2022-03-01 07:41 | Inpatient (IN) | payer MEDICARE, OTHER ==
[2022-03-01] MEDS ORDERED: NITROGLYCERIN SL TABS 0.4 MG TAB SUBLINGUAL STA ×3 (07:47)
[2022-03-01] MEDS ORDERED: ASPIRIN 81 MG PO STA (07:47)
--- NOTE | 2022-03-01 07:49 | ED ---
General Adult HPI - General Stated complaint: chest pain Time Seen by Provider: 03/01/22 07:42 Source: patient, RN notes reviewed, old records reviewed Mode of arrival: ambulatory Limitations: no limitations - History of Present Illness Initial comments: Patient is a pleasant 76-year-old male presenting to the emergency department with concerns with chest pain. Onset of symptoms was around 3 hours ago. Patient states it feels like pressure. No radiation. Patient feels mildly short of breath. Patient was nauseated and sweaty at onset. Discomfort is currently rated 6 or 7/10. Patient denies history of similar symptoms previously. - Related Data Home Medications Medication Instructions Recorded Confirmed Acetaminophen Tab [Tylenol] 1,000 mg PO TID@0700,1300,1900 01/17/22 03/01/22 Artificial Tears-Hypromellose 2 drops BOTH EYES Q4H PRN 01/17/22 03/01/22 [Artificial Tear Drops] Cholecalciferol [Vitamin D3 (25 25 mcg PO HS 01/17/22 03/01/22 Mcg = 1000 Iu)] Docusate [Colace] 200 mg PO HS 01/17/22 03/01/22 Latanoprost/Pf [Latanoprost 0.005% 1 drop BOTH EYES HS 01/17/22 03/01/22 Eye Drop] Losartan Potassium [Cozaar] 100 mg PO DAILY 01/17/22 03/01/22 Magnesium Oxide 400 mg PO DAILY 01/17/22 03/01/22 Omeprazole 20 mg PO DAILY 01/17/22 03/01/22 PARoxetine [Paxil] 10 mg PO HS 01/17/22 03/01/22 Potassium Chloride ER [K-Dur 20] 20 meq PO DAILY 01/17/22 03/01/22 Primidone [Mysoline] 50 mg PO HS 01/17/22 03/01/22 Sennosides [Senokot] 8.6 mg PO HS 01/17/22 03/01/22 Sennosides [Senokot] 17.2 mg PO DAILY 01/17/22 03/01/22 Tamsulosin [Flomax] 0.4 mg PO HS 01/17/22 03/01/22 Vit C/E/Zn/Coppr/Lutein/Zeaxan 1 cap PO BID 08/14/22 09/26/22 [Preservision Areds 2 Softgel] glipiZIDE [Glucotrol] 5 mg PO HS 01/17/22 03/01/22 glipiZIDE [Glucotrol] 10 mg PO DAILY 01/17/22 03/01/22 metOLazone [Zaroxolyn] 5 mg PO DAILY 01/17/22 03/01/22 polyethylene glycoL 3350 [Miralax] 17 gm PO DAILY 01/17/22 03/01/22 Aspirin EC [Ecotrin Low Dose] 81 mg PO HS 03/01/22 03/01/22 Atorvastatin [Lipitor] 40 mg PO HS 03/01/22 03/01/22 Nitroglycerin Sl Tabs [Nitrostat] 0.4 mg SL Q5M PRN 03/01/22 03/01/22 Previous Rx's Medication Instructions Recorded Apixaban [Eliquis] 2.5 mg PO BID 30 Days #60 tab 01/19/22 Gabapentin [Neurontin] 400 mg PO BID #6 cap 01/19/22 Isosorbide Mononitrate ER [Imdur] 30 mg PO DAILY 30 Days #30 tab 01/19/22 Metoprolol Tartrate [Lopressor] 25 mg PO BID #0 01/19/22 Allergies Allergy/AdvReac Type Severity Reaction Status Date / Time No Known Allergies Allergy Verified 03/01/22 09:22 Review of Systems ROS Statement: Those systems with pertinent positive or pertinent negative responses have been documented in the HPI. ROS Other: All systems not noted in ROS Statement are negative. Constitutional: Denies: fever Eyes: Denies: eye pain ENT: Denies: ear pain Respiratory: Denies: cough Cardiovascular: Reports: as per HPI, chest pain Endocrine: Denies: fatigue Gastrointestinal: Denies: abdominal pain Genitourinary: Denies: dysuria Musculoskeletal: Denies: back pain Skin: Denies: rash Neurological: Denies: weakness Past Medical History Past Medical History: CVA/TIA, Hyperlipidemia History of Any Multi-Drug Resistant Organisms: None Reported Past Surgical History: Appendectomy, Orthopedic Surgery Smoking Status: Never smoker General Exam Limitations: no limitations General appearance: alert, in no apparent distress Head exam: Present: normocephalic Eye exam: Present: normal appearance Neck exam: Present: normal inspection Respiratory exam: Present: normal lung sounds bilaterally. Absent: chest wall tenderness Cardiovascular Exam: Present: irregular rhythm Expanded Peripheral pulses: 2+: Radial (R), Radial (L), Dorsalis Pedis (R), Dorsalis Pedis (L) GI/Abdominal exam: Present: soft. Absent: tenderness Extremities exam: Present: normal inspection. Absent: pedal edema, calf tenderness Neurological exam: Present: alert Psychiatric exam: Present: normal affect, normal mood Skin exam: Present: normal color Course Vital Signs 03/01/22 03/01/22 07:42 08:50 Temperature 97.9 F Pulse Rate 63 60 Respiratory 20 18 Rate Blood Pressure 151/94 118/85 O2 Sat by Pulse 96 99 Oximetry EKG Findings - EKG Comments: EKG Findings:: A. fib with rate of 57. QRS 87. QT 393. QTC 386. Left axis. Q waves V1 and V2. No acute ST change. Poor R-wave progression. Medical Decision Making - Medical Decision Making Patient reevaluated and symptom-free following nitroglycerin paste. Patient updated. Case discussed with practitioner David, who will admit for hospital observation call - Lab Data Result diagrams: 03/01/22 07:52 03/01/22 07:52 Lab Results 03/01/22 03/01/22 03/01/22 Range/Units 07:52 07:52 07:52 WBC 12.8 H (3.8-10.6) k/uL RBC 4.53 (4.30-5.90) m/uL Hgb 14.3 (13.0-17.5) gm/dL Hct 42.9 (39.0-53.0) % MCV 94.7 (80.0-100.0) fL MCH 31.6 (25.0-35.0) pg MCHC 33.3 (31.0-37.0) g/dL RDW 13.8 (11.5-15.5) % Plt Count 146 L (150-450) k/uL MPV 10.7 Neutrophils % 80 % Lymphocytes % 10 % Monocytes % 5 % Eosinophils % 3 % Basophils % 0 % Neutrophils # 10.3 H (1.3-7.7) k/uL Lymphocytes # 1.3 (1.0-4.8) k/uL Monocytes # 0.6 (0-1.0) k/uL Eosinophils # 0.4 (0-0.7) k/uL Basophils # 0.1 (0-0.2) k/uL PT 10.9 (9.0-12.0) sec INR 1.0 (<1.2) APTT 23.4 (22.0-30.0) sec Sodium 140 (137-145) mmol/L Potassium 4.1 (3.5-5.1) mmol/L Chloride 100 (98-107) mmol/L Carbon Dioxide 27 (22-30) mmol/L Anion Gap 13 mmol/L BUN 28 H (9-20) mg/dL Creatinine 1.52 H (0.66-1.25) mg/dL Est GFR (CKD-EPI)AfAm 50 (>60 ml/min/1.73 sqM) Est GFR (CKD-EPI)NonAf 44 (>60 ml/min/1.73 sqM) Glucose 175 H (74-99) mg/dL Calcium 9.1 (8.4-10.2) mg/dL Magnesium 1.5 L (1.6-2.3) mg/dL Total Bilirubin 0.6 (0.2-1.3) mg/dL AST 21 (17-59) U/L ALT 23 (4-49) U/L Alkaline Phosphatase 109 (38-126) U/L Troponin I (0.000-0.034) ng/mL NT-Pro-B Natriuret Pep pg/mL Total Protein 7.6 (6.3-8.2) g/dL Albumin 4.4 (3.5-5.0) g/dL Amylase 85 (30-110) U/L Lipase 475 H (23-300) U/L 03/01/22 03/01/22 Range/Units 07:52 07:52 WBC (3.8-10.6) k/uL RBC (4.30-5.90) m/uL Hgb (13.0-17.5) gm/dL Hct (39.0-53.0) % MCV (80.0-100.0) fL MCH (25.0-35.0) pg MCHC (31.0-37.0) g/dL RDW (11.5-15.5) % Plt Count (150-450) k/uL MPV Neutrophils % % Lymphocytes % % Monocytes % % Eosinophils % % Basophils % % Neutrophils # (1.3-7.7) k/uL Lymphocytes # (1.0-4.8) k/uL Monocytes # (0-1.0) k/uL Eosinophils # (0-0.7) k/uL Basophils # (0-0.2) k/uL PT (9.0-12.0) sec INR (<1.2) APTT (22.0-30.0) sec Sodium (137-145) mmol/L Potassium (3.5-5.1) mmol/L Chloride (98-107) mmol/L Carbon Dioxide (22-30) mmol/L Anion Gap mmol/L BUN (9-20) mg/dL Creatinine (0.66-1.25) mg/dL Est GFR (CKD-EPI)AfAm (>60 ml/min/1.73 sqM) Est GFR (CKD-EPI)NonAf (>60 ml/min/1.73 sqM) Glucose (74-99) mg/dL Calcium (8.4-10.2) mg/dL Magnesium (1.6-2.3) mg/dL Total Bilirubin (0.2-1.3) mg/dL AST (17-59) U/L ALT (4-49) U/L Alkaline Phosphatase (38-126) U/L Troponin I <0.012 (0.000-0.034) ng/mL NT-Pro-B Natriuret Pep 1480 pg/mL Total Protein (6.3-8.2) g/dL Albumin (3.5-5.0) g/dL Amylase (30-110) U/L Lipase (23-300) U/L - Radiology Data Radiology results: image reviewed (Chest x-ray shows no acute process) Disposition Clinical Impression: Chest pain Disposition: ADMITTED IP TO THIS [facility] Is patient prescribed a controlled substance at d/c from ED?: No Referrals: Nonstaff,Physician [Primary Care Provider] - 1-2 days Time of Disposition: 10:09
[2022-03-01] MEDS ORDERED: NITROGLYCERIN OINT 1 INCH/GM PACKET TOPICAL STA (08:02)
[2022-03-01 08:07] LABS: Basophils # (A) 0.1 k/uL (0-0.2); Basophils % (A) 0 %; Eosinophils # (A) 0.4 k/uL (0-0.7); Eosinophils % (A) 3 %; HCT 42.9 % (39.0-53.0); HGB 14.3 gm/dL (13.0-17.5); Lymphocytes # (A) 1.3 k/uL (1.0-4.8); Lymphocytes % (A) 10 %; MCH 31.6 pg (25.0-35.0); MCHC 33.3 g/dL (31.0-37.0); MCV 94.7 fL (80.0-100.0); Mean Platelet Volume 10.7; Monocytes # (A) 0.6 k/uL (0-1.0); Monocytes % (A) 5 %; Neutrophils # (A) 10.3 k/uL (1.3-7.7); Neutrophils % (A) 80 %; Platelet Count 146 k/uL (150-450); RBC 4.53 m/uL (4.30-5.90); RDW 13.8 % (11.5-15.5); WBC 12.8 k/uL (3.8-10.6)
[2022-03-01 08:19] LABS: Albumin 4.4 g/dL (3.5-5.0); Calcium 9.1 mg/dL (8.4-10.2); Magnesium 1.5 mg/dL (1.6-2.3); Potassium 4.1 mmol/L (3.5-5.1); Total Bilirubin 0.6 mg/dL (0.2-1.3); Total Protein 7.6 g/dL (6.3-8.2)
--- NOTE | 2022-03-01 08:20 | XR ---
EXAMINATION TYPE: XR chest 2V DATE OF EXAM: 03/01/2022 COMPARISON: Chest x-ray January 17, 2022 HISTORY: Chest pain. TECHNIQUE: Frontal and lateral views of the chest are obtained. FINDINGS: There is cardiomegaly with ectatic and atherosclerotic thoracic aorta redemonstrated. Some chronic parenchymal changes in the lung bases without suspicious focal airspace opacity, pleural eff usion, or pneumothorax is seen. Degenerative change bilateral shoulders is present. Degenerative spur ring in the spine is seen. IMPRESSION: Chronic changes and cardiomegaly without acute pulmonary process.
[2022-03-01 08:21] LABS: Partial Thromboplastin Time 23.4 sec (22.0-30.0); Prothrombin Time 10.9 sec (9.0-12.0)
[2022-03-01] MEDS ORDERED: NITROGLYCERIN SL TABS 0.4 MG TAB SUBLINGUAL PRN ×2 (10:10→10:24)
[2022-03-01] MEDS ORDERED: NALOXONE 0.4 MG/ML 1 ML VIAL IVP PRN (10:23)
[2022-03-01] MEDS ORDERED: CALCIUM CARBONATE 500 MG CHEWABLE PO PRN (10:23)
[2022-03-01] MEDS ORDERED: MELATONIN 3 MG TABLET PO PRN (10:23)
[2022-03-01] MEDS ORDERED: ONDANSETRON 4 MG/2 ML VIAL IVP PRN (10:23)
[2022-03-01] MEDS ORDERED: ARTIFICIAL TEARS-HYPROMELLOSE DROPS 15 ML BTL BOTH EYES PRN (10:24)
[2022-03-01] MEDS ORDERED: DEXTROSE 50% SYRINGE 50 ML IVP PRN ×2 (13:25)
--- NOTE | 2022-03-01 13:37 | P.HPIM ---
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 Patient resides at [facility] and presented to the emergency department with a chief complaint of chest pain. The patient previously underwent hospitalization for similar complaint on 01/17/22 through 01/19/22 where he underwent a full cardiac workup co mplete with Lexiscan stress test. Echocardiogram completed 01/18/22 revealed a preserved EF of 55-60% with mild mitral and tricuspid regurgitation. Nuclear stress test reported to be nondiagnostic testing response to Lexiscan. Lexiscan stress test also completed reporting inconclusive and was reviewed by coke crusher operator whom recommended medical management starting patient on oral nitrite isosorbide mononitrate and oral anticoagulation with Eliquis at that time. Patient was later discharged back to custodial facility and he currently reports that since previous hospitalization he has been doing well with no further episodes of chest pain until this morning. Patient states this morning he awoken to sudden onset pain to midsternal chest accompanied by nausea, shortness of breath, and diaphoresis. Patient describes this pain as a pressure currently rated 7 out of 10 and states it feels as though someone is standing on his chest. He denies having any radiation of this pain and stating it remains directly in the center of his chest denies anything making it worse, but does report that pain did improve from previous 10 out of 10 down to 7 out of 10 after receiving "the cream" they put on my chest (nitropaste). Patient reports diaphoresis, nausea, and shortness of breath have resolved. He denies experiencing any headache, lightheadedness, dizziness, palpitations, vomiting, or experiencing any increased swelling in lower extremities. Patient does have chronic swelling to right lower extremity since previous CVA in which she reports remains unchanged. Patient underwent full evaluation in the emergency department. CBC revealed mild leukocytosis with WBC count of 12.8 and mild thrombocytopenia with platelet count of 146. BMP consistent with stage III CKD BUN 28, creatinine 1.52, and GFR 44. Magnesium was low at 1.5. Troponin negative at less than 0.012 and pro-BMP 1480 improved from previous visit of BMP 2430. Lipase was slightly elevated at 475. EKG completed revealing atrial fibrillation with a slow ventricular response at 57 bpm. Chest x-ray negative for acute cardiopulmonary process. Patient was admitted under our services with consultation to cardiology. Review of systems: Pertinent positives and negatives as discussed in HPI, a complete review of s ystems was performed and all other systems are negative. Physical exam: Vital signs reviewed and stable. General: Nontoxic, no distress and appears stated age. Derm: Skin warm and dry, normal coloration for ethnicity. Head: Atraumatic, normocephalic and symmetric. Eyes: EOMs intact, no lid lag, and anicteric sclera Mouth: no lip lesions, mucus membranes moist Cardiovascular: regular rate and rhythm with normal S1S2, no murmur, positive posterior tibial pulses bilaterally, and cap refill < 2 seconds. Lungs: Respirations even, regular, and unlabored on room air. Lungs CTA bilaterally, no rhonchi, no rales, no wheezing, and no accessory muscle usage. Abdominal: soft, nontender to palpation, no guarding, no appreciable organomegaly Ext: No gross muscle atrophy, no edema, no contractures. Right-sided hemiparesis. Right lower extremity 1-2+ pitting edema Neuro: Speech clear, face symmetrical and CN II-XII grossly intact with no noted focal neuro deficits Psych: Alert and oriented to person, place, time, and situation. Appropriate and pleasant affect. Assessment and Plan of Care: Chest pain, rule out acute coronary event -Cardiology consult, appreciate further recommendations -Telemetry monitoring -Trend troponins -Cardiac diet, NPO at midnight -Continue cardiac medication regimen consisting of Eliquis, aspirin, atorvastatin, isosorbide mononitrate, losartan, and metoprolol. Elevated lipase -Lipase slightly elevated possibly secondary to chronic kidney disease or peptic ulcer disease. -We will order CT abdomen and pelvis without contrast to rule out acute pancr eatitis or other diseases/disorders of the pancreas Chronic persistent atrial fibrillation -Continue oral anticoagulant with Eliquis. Chronic stage III kidney disease -Stable. We will continue to monitor with repeat a.m. labs. Hypertension -Monitor vital signs and continue daily medication regimen with losartan and metoprolol. Hyperlipidemia. -Continue daily medication regimen with atorvastatin. Hxi-Jqxlplm-[id number] diabetes mellitus. -We will hold oral hypoglycemic agents in place patient on glycemic protocol with NovoLog sliding scale during hospitalization upon discharge patient to resume daily medication regimen with glipizide and metformin. History of CVA with right-sided hemiplegia. -Safe and supportive care with assistance as needed. -Continue daily aspirin and atorvastatin as well as metolazone and primidone. BPH. -Continue daily medication regimen of Flomax. The patient is admitted with an anticipated less than 2 midnight stay for evaluation of chest pain CODE STATUS: Full code DVT prophylaxis: Deidre Discussed with: Pt and RN Anticipated discharge date: 1-[address]: Return to [facility] A total of 46 minutes was spent on the care of this complex patient more than 50% of the time was spent in counseling and care coordination. Past Medical History Past Medical History: CVA/TIA, Hyperlipidemia History of Any Multi-Drug Resistant Organisms: None Reported Past Surgical History: Appendectomy, Orthopedic Surgery Smoking Status: Never smoker Medications and Allergies Home Medications Medication Instructions Recorded Confirmed Type Acetaminophen Tab [Tylenol] 1,000 mg PO TID@0700,1300,1900 01/17/22 03/01/22 History Artificial Tears-Hypromellose 2 drops BOTH EYES Q4H PRN 01/17/22 03/01/22 History [Artificial Tear Drops] Cholecalciferol [Vitamin D3 (25 25 mcg PO HS 01/17/22 03/01/22 History Mcg = 1000 Iu)] Docusate [Colace] 200 mg PO HS 01/17/22 03/01/22 History Latanoprost/Pf [Latanoprost 0.005% 1 drop BOTH EYES HS 01/17/22 03/01/22 History Eye Drop] Losartan Potassium [Cozaar] 100 mg PO DAILY 01/17/22 03/01/22 History Magnesium Oxide 400 mg PO DAILY 01/17/22 03/01/22 History Omeprazole 20 mg PO DAILY 01/17/22 03/01/22 History PARoxetine [Paxil] 10 mg PO HS 01/17/22 03/01/22 History Potassium Chloride ER [K-Dur 20] 20 meq PO DAILY 01/17/22 03/01/22 History Primidone [Mysoline] 50 mg PO HS 01/17/22 03/01/22 History Sennosides [Senokot] 8.6 mg PO HS 01/17/22 03/01/22 History Sennosides [Senokot] 17.2 mg PO DAILY 01/17/22 03/01/22 History Tamsulosin [Flomax] 0.4 mg PO HS 01/17/22 03/01/22 History Vit C/E/Zn/Coppr/Lutein/Zeaxan 1 cap PO BID 01/17/22 03/01/22 History [Preservision Areds 2 Softgel] glipiZIDE [Glucotrol] 5 mg PO HS 01/17/22 03/01/22 History glipiZIDE [Glucotrol] 10 mg PO DAILY 01/17/22 03/01/22 History metOLazone [Zaroxolyn] 5 mg PO DAILY 01/17/22 03/01/22 History polyethylene glycoL 3350 [Miralax] 17 gm PO DAILY 01/17/22 03/01/22 History Apixaban [Eliquis] 2.5 mg PO BID 30 Days #60 tab 01/19/22 03/01/22 Rx Gabapentin [Neurontin] 400 mg PO BID #6 cap 01/19/22 03/01/22 Rx Isosorbide Mononitrate ER [Imdur] 30 mg PO DAILY 30 Days #30 tab 01/19/22 03/01/22 Rx Metoprolol Tartrate [Lopressor] 25 mg PO BID #0 01/19/22 03/01/22 Rx Aspirin EC [Ecotrin Low Dose] 81 mg PO HS 03/01/22 03/01/22 History Atorvastatin [Lipitor] 40 mg PO HS 03/01/22 03/01/22 History Nitroglycerin Sl Tabs [Nitrostat] 0.4 mg SL Q5M PRN 03/01/22 03/01/22 History Allergies Allergy/AdvReac Type Severity Reaction Status Date / Time No Known Allergies Allergy Verified 03/01/22 09:22 Physical Exam Vitals: Vital Signs Temp Pulse Resp BP Pulse Ox 03/01/22 08:50 60 18 118/85 99 03/01/22 07:42 97.9 F 63 20 151/94 96 Intake and Output 02/28/22 03/01/22 03/01/22 22:59 06:59 14:59 Other: Weight 129.274 kg Results CBC & Chem 7: 03/01/22 07:52 03/01/22 07:52 Labs: Abnormal Lab Results - Last 24 Hours (Table) 03/01/22 03/01/22 Range/Units 07:52 07:52 WBC 12.8 H (3.8-10.6) k/uL Plt Count 146 L (150-450) k/uL Neutrophils # 10.3 H (1.3-7.7) k/uL BUN 28 H (9-20) mg/dL Creatinine 1.52 H (0.66-1.25) mg/dL Glucose 175 H (74-99) mg/dL Magnesium 1.5 L (1.6-2.3) mg/dL Lipase 475 H (23-300) U/L
[2022-03-01] MEDS: NITROGLYCERIN OINT 1 INCH/GM PACKET TOPICAL SCH ×3 (13:46→23:42)
[2022-03-01] MEDS: MAGNESIUM SULFATE-D5W PMX 1 GM in DEXTROSE/WATER 1 100ML.BAG IVPB SCH ×3 (13:46→16:06)
--- NOTE | 2022-03-01 14:33 | CT ---
EXAMINATION TYPE: CT abdomen pelvis wo con DATE OF EXAM: 03/01/2022 HISTORY: abdominal pain and distention CT DLP: 2562.2 mGycm. Automated Exposure Control for Dose Reduction was Utilized. TECHNIQUE: CT scan of the abdomen and pelvis is performed without oral or IV contrast. COMPARISON: NONE FINDINGS: Within the limitations of a non-contrast study, the following observations are made. Evalu ation slightly suboptimal due to patient's large body habitus. LUNG BASES: Small to tiny right pleural effusion and associated right lung compressive atelectasis in the base. LIVER/GB: Small dependent gallstones and/or gallbladder sludge. No surrounding inflammatory change to suggest acute cholecystitis. No biliary dilatation. PANCREAS: Pancreas is normal in size. Mild to minimal ill-defined fluid and/or fat stranding surround s the pancreatic head. No well-formed fluid collection seen. No calcifications or ductal dilatation. No free air. SPLEEN: No significant abnormality is seen. ADRENALS: No significant abnormality is seen. KIDNEYS: No renal calculus or hydronephrosis is seen bilaterally. BOWEL: Redundant sigmoid colon. No suspicious bowel dilatation. GENITAL ORGANS: No gross abnormality seen. LYMPH NODES: No greater than 1cm abdominal or pelvic lymph nodes are appreciated. OSSEOUS STRUCTURES: Multilevel spurring in the thoracolumbar spine. Moderate spurring and narrowing i n both hip joints. Narrowing of the bilateral sacroiliac joints more prominent on the right. Multilev el facet arthropathy in the lumbar spine. OTHER: Mild calcified plaque of the aorta extends into branch vessels. IMPRESSION: Possible mild focal pancreatitis in the pancreatic head.
[2022-03-01 17:03] LABS: Glucose,Whole Blood 283 mg/dL (70-110)
[2022-03-01] MEDS: INSULIN ASPART (NovoLOG) 100 UNIT/ML VIAL SQ SCH ×2 (17:38→21:30)
[2022-03-01 20:17] LABS: Glucose,Whole Blood 230 mg/dL (70-110)
[2022-03-01] MEDS: CHOLECALCIFEROL 25 MCG (1000 IU) TABLET PO SCH (21:29)
[2022-03-01] MEDS: DOCUSATE 100 MG CAP PO SCH (21:29)
[2022-03-01] MEDS: METOPROLOL TARTRATE 25 MG TAB PO SCH (21:29)
[2022-03-01] MEDS: ATORVASTATIN 40 MG TAB PO SCH (21:29)
[2022-03-01] MEDS: GABAPENTIN 400 MG CAP PO SCH (21:29)
[2022-03-01] MEDS: APIXABAN 2.5 MG TABLET PO SCH (21:29)
[2022-03-01] MEDS: TAMSULOSIN 0.4 MG CAP.ER.24H PO SCH (21:29)
[2022-03-01] MEDS: ASPIRIN 81 MG PO SCH (21:29)
[2022-03-01] MEDS: PRIMIDONE 50 MG TAB PO SCH (21:29)
[2022-03-01] MEDS: PARoxetine 10 MG TAB PO SCH (21:30)
[2022-03-01] MEDS: LATANOPROST 0.005% OPHTH DROPS 2.5 ML BTL BOTH EYES SCH (21:44)
[2022-03-02] MEDS: NITROGLYCERIN OINT 1 INCH/GM PACKET TOPICAL SCH (05:35)
[2022-03-02] MEDS: HYDROcodone/APAP 5-325MG 1 EACH TAB PO PRN ×2 (05:50→12:22)
[2022-03-02 06:53] LABS: Glucose,Whole Blood 122 mg/dL (70-110)
[2022-03-02] MEDS: INSULIN ASPART (NovoLOG) 100 UNIT/ML VIAL SQ SCH ×4 (07:52→21:11)
[2022-03-02] MEDS: APIXABAN 2.5 MG TABLET PO SCH ×2 (08:34→21:11)
[2022-03-02] MEDS: GABAPENTIN 400 MG CAP PO SCH ×2 (08:35→21:10)
[2022-03-02] MEDS: metOLazone 5 MG TAB PO SCH (08:36)
[2022-03-02] MEDS: LOSARTAN 50 MG TAB PO SCH (08:36)
[2022-03-02] MEDS: PANTOPRAZOLE 40 MG TABLET PO SCH (08:36)
[2022-03-02] MEDS: ISOSORBIDE MONONITRATE ER 60 MG TAB.ER.24H PO SCH (08:37)
[2022-03-02] MEDS: METOPROLOL TARTRATE 25 MG TAB PO SCH ×2 (08:37→21:10)
[2022-03-02] MEDS: polyethylene glycoL 3350 17 GM POWD.PACK PO SCH (08:39)
[2022-03-02] MEDS ORDERED: ISOSORBIDE MONONITRATE ER 30 MG TAB.ER.24H PO SCH (09:00)
[2022-03-02] MEDS ORDERED: ASPIRIN 325 MG TAB PO SCH (09:00)
[2022-03-02] MEDS: SODIUM CHLORIDE 0.9% 1,000 ML IV SCH ×2 (09:28→21:12)
--- NOTE | 2022-03-02 10:16 | P.CRDCN ---
History of Present Illness History of present illness: HISTORY OF PRESENT ILLNESS: This is a 76-year-old male with a past medical history significant for paroxysmal atrial fibrillation, hypertension, hyperlipidemia, diabetes. Patient follows in the office with Dr. Quinonez. We have been asked to see the patient in consultation for chest pain. Patient examined at the bedside. Patient states yesterday he began having chest discomfort. He states the pain was in the middle of his chest and he describes the pain as a pressure-like sensation. He reports having some nausea as well. He denies any diaphoresis. He reports having an episode of discomfort again this morning. At the time of my examination, he denies any chest pain or pressure. * EKG reveals atrial fibrillation with controlled ventricular rate * Chest xray chronic changes and cardiomegaly without acute pulmonary process * Laboratory data: WBC 12.8. Hemoglobin 14.3. Platelet count 146. Sodium 140. Potassium 4.1. BUN 28. Creatinine 1.52. Troponin negative 2. Lipase 475. * Current home cardiac medications include Eliquis 5mg BID, aspirin 81 mg a night, Lipitor 40 mg at night, Imdur 30 mg daily, losartan 100 mg daily, metoprolol tartrate 25 mg twice a day, Zaroxolyn 5 mg daily * Most recent echocardiogram obtained in January 2022 revealed ejection fraction 55-60% with mild mitral regurgitation and mild tricuspid regurgitation * Patient underwent Lexiscan stress test and January 2022 revealing Equivocal between and area of reversibility along the basal inferior wall versus diaphragmatic attenuation. REVIEW OF SYSTEMS: At the time of my exam: CONSTITUTIONAL: Denies fever or chills. HEENT: Denies blurred vision, vision changes, or eye pain. Denies hemoptysis CARDIOVASCULAR: Denies chest pain. Denies orthopnea. Denies PND. Denies palpitations RESPIRATORY: Denies shortness of breath. GASTROINTESTINAL: Denies abdominal pain. Denies nausea or vomiting. HEMATOLOGIC: Denies bleeding disorders. GENITOURINARY: Denies any blood in urine. SKIN: Denies pruitis. Denies rash. PHYSICAL EXAM: VITAL SIGNS: Reviewed. GENERAL: Well-developed in no acute distress. HEENT: Head is normocephalic. Pupils are equal, round. Sclerae anicteric. Mucous membranes of the mouth are moist. Neck supple. No JVD or thyromegaly LUNGS: Respirations even and unlabored. Lungs essentially clear to auscultation bilaterally. HEART: Irregular rate and rhythm. S1 and S2 heard. ABDOMEN: Soft. Nondistended. Nontender. EXTREMITIES: Normal range of motion. No clubbing or cyanosis. Peripheral pulses intact. No lower extremity edema NEUROLOGIC: Awake and alert. Oriented x 3. ASSESSMENT: Chest pain Hypertension Hyperlipidemia Diabetes Paroxysmal atrial fibrillation History of CVA with residual paralysis, patient bedbound PLAN: An acute coronary event has been ruled out No need to repeat echocardiogram as this was performed in January 2022. Resume home cardiac medications Increase Imdur to 60 mg daily Further recommendations pending patient course Nurse practitioner note has been reviewed by physician. Signing provider agrees with the documented findings, assessment, and plan of care. Past Medical History Past Medical History: CVA/TIA, Hyperlipidemia History of Any Multi-Drug Resistant Organisms: None Reported Past Surgical History: Appendectomy, Orthopedic Surgery Smoking Status: Never smoker Medications and Allergies Home Medications Medication Instructions Recorded Confirmed Type Acetaminophen Tab [Tylenol] 1,000 mg PO TID@0700,1300,1900 01/17/22 03/01/22 History Artificial Tears-Hypromellose 2 drops BOTH EYES Q4H PRN 01/17/22 03/01/22 History [Artificial Tear Drops] Cholecalciferol [Vitamin D3 (25 25 mcg PO HS 01/17/22 03/01/22 History Mcg = 1000 Iu)] Docusate [Colace] 200 mg PO HS 01/17/22 03/01/22 History Latanoprost/Pf [Latanoprost 0.005% 1 drop BOTH EYES HS 01/17/22 03/01/22 History Eye Drop] Losartan Potassium [Cozaar] 100 mg PO DAILY 01/17/22 03/01/22 History Magnesium Oxide 400 mg PO DAILY 01/17/22 03/01/22 History Omeprazole 20 mg PO DAILY 01/17/22 03/01/22 History PARoxetine [Paxil] 10 mg PO HS 01/17/22 03/01/22 History Potassium Chloride ER [K-Dur 20] 20 meq PO DAILY 01/17/22 03/01/22 History Primidone [Mysoline] 50 mg PO HS 01/17/22 03/01/22 History Sennosides [Senokot] 8.6 mg PO HS 01/17/22 03/01/22 History Sennosides [Senokot] 17.2 mg PO DAILY 01/17/22 03/01/22 History Tamsulosin [Flomax] 0.4 mg PO HS 01/17/22 03/01/22 History Vit C/E/Zn/Coppr/Lutein/Zeaxan 1 cap PO BID 01/17/22 03/01/22 History [Preservision Areds 2 Softgel] glipiZIDE [Glucotrol] 5 mg PO HS 01/17/22 03/01/22 History glipiZIDE [Glucotrol] 10 mg PO DAILY 01/17/22 03/01/22 History metOLazone [Zaroxolyn] 5 mg PO DAILY 01/17/22 03/01/22 History polyethylene glycoL 3350 [Miralax] 17 gm PO DAILY 01/17/22 03/01/22 History Apixaban [Eliquis] 2.5 mg PO BID 30 Days #60 tab 01/19/22 03/01/22 Rx Gabapentin [Neurontin] 400 mg PO BID #6 cap 01/19/22 03/01/22 Rx Isosorbide Mononitrate ER [Imdur] 30 mg PO DAILY 30 Days #30 tab 01/19/22 03/01/22 Rx Metoprolol Tartrate [Lopressor] 25 mg PO BID #0 01/19/22 03/01/22 Rx Aspirin EC [Ecotrin Low Dose] 81 mg PO HS 03/01/22 03/01/22 History Atorvastatin [Lipitor] 40 mg PO HS 03/01/22 03/01/22 History Nitroglycerin Sl Tabs [Nitrostat] 0.4 mg SL Q5M PRN 03/01/22 03/01/22 History Allergies Allergy/AdvReac Type Severity Reaction Status Date / Time No Known Allergies Allergy Verified 03/01/22 09:22 Physical Exam Vitals: Vital Signs Temp Pulse Resp BP Pulse Ox 03/01/22 08:50 60 18 118/85 99 03/01/22 07:42 97.9 F 63 20 151/94 96 Intake and Output 02/28/22 03/01/22 03/01/22 22:59 06:59 14:59 Other: Weight 129.274 kg Results 03/01/22 07:52 03/01/22 07:52 Cardiac Enzymes 03/01/22 03/01/22 03/01/22 Range/Units 07:52 07:52 10:40 AST 21 (17-59) U/L Troponin I <0.012 <0.012 (0.000-0.034) ng/mL Coagulation 03/01/22 Range/Units 07:52 PT 10.9 (9.0-12.0) sec APTT 23.4 (22.0-30.0) sec CBC 03/01/22 Range/Units 07:52 WBC 12.8 H (3.8-10.6) k/uL RBC 4.53 (4.30-5.90) m/uL Hgb 14.3 (13.0-17.5) gm/dL Hct 42.9 (39.0-53.0) % Plt Count 146 L (150-450) k/uL Comprehensive Metabolic Panel 03/01/22 Range/Units 07:52 Sodium 140 (137-145) mmol/L Potassium 4.1 (3.5-5.1) mmol/L Chloride 100 (98-107) mmol/L Carbon Dioxide 27 (22-30) mmol/L BUN 28 H (9-20) mg/dL Creatinine 1.52 H (0.66-1.25) mg/dL Glucose 175 H (74-99) mg/dL Calcium 9.1 (8.4-10.2) mg/dL AST 21 (17-59) U/L ALT 23 (4-49) U/L Alkaline Phosphatase 109 (38-126) U/L Total Protein 7.6 (6.3-8.2) g/dL Albumin 4.4 (3.5-5.0) g/dL Current Medications Generic Name Dose Route Start Last Admin Trade Name Freq PRN Reason Stop Dose Admin Acetaminophen 650 mg 03/01/22 10:23 Acetaminophen Tab 325 Mg Tab PO Q6HR PRN Mild Pain or Fever > 100.5 Hydrocodone Bitart/Acetaminophen 1 each 03/01/22 10:23 Hydrocodone/Apap 5-325mg 1 Each Tab PO Q4HR PRN Moderate Pain (Scale 4 to 6) Apixaban 2.5 mg 03/01/22 21:00 Apixaban 2.5 Mg Tablet PO BID [facility] Protocol Artificial Tears 2 drops 03/01/22 10:24 Artificial Tears-Hypromellose Drops 15 Ml Btl BOTH EYES Q4H PRN Dry Eye(s) Aspirin 81 mg 03/01/22 21:00 Aspirin 81 Mg PO HS [facility] Atorvastatin Calcium 40 mg 03/01/22 21:00 Atorvastatin 40 Mg Tab PO HS [facility] Calcium Carbonate/Glycine 1,000 mg 03/01/22 10:23 Calcium Carbonate 500 Mg Chewable PO Q4HR PRN Dyspepsia Cholecalciferol 25 mcg 03/01/22 21:00 Cholecalciferol 25 Mcg (1000 Iu) Tablet PO HS [facility] Docusate Sodium 200 mg 03/01/22 21:00 Docusate 100 Mg Cap PO HS [facility] Gabapentin 400 mg 03/01/22 21:00 Gabapentin 400 Mg Cap PO BID [facility] Isosorbide Mononitrate 30 mg 03/02/22 09:00 Isosorbide Mononitrate Er 30 Mg Tab.Er.24h PO DAILY [facility] Latanoprost 1 drops 03/01/22 21:00 Latanoprost 0.005% Ophth Drops 2.5 Ml Btl BOTH EYES HS [facility] Losartan Potassium 100 mg 03/02/22 09:00 Losartan 50 Mg Tab PO DAILY [facility] Melatonin 3 mg 03/01/22 10:23 Melatonin 3 Mg Tablet PO HS PRN Insomnia Metolazone 5 mg 03/02/22 09:00 Metolazone 5 Mg Tab PO DAILY [facility] Metoprolol Tartrate 25 mg 03/01/22 21:00 Metoprolol Tartrate 25 Mg Tab PO BID [facility] Naloxone HCl 0.2 mg 03/01/22 10:23 Naloxone 0.4 Mg/Ml 1 Ml Vial IVP Q2M PRN Opioid Reversal Nitroglycerin 1 inch 03/01/22 12:00 Nitroglycerin Oint 1 Inch/Gm Packet TOPICAL Q6HR [facility] Nitroglycerin 0.4 mg 03/01/22 10:24 Nitroglycerin Sl Tabs 0.4 Mg Tab SUBLINGUAL Q5M PRN Chest Pain Ondansetron HCl 4 mg 03/01/22 10:23 Ondansetron 4 Mg/2 Ml Vial IVP Q8HR PRN Nausea And Vomiting Pantoprazole Sodium 40 mg 03/02/22 09:00 Pantoprazole 40 Mg Tablet PO DAILY [facility] Paroxetine HCl 10 mg 03/01/22 21:00 Paroxetine 10 Mg Tab PO HS [facility] Polyethylene Glycol 17 gm 03/02/22 09:00 Polyethylene Glycol 3350 17 Gm Powd.Pack PO DAILY [facility] Primidone 50 mg 03/01/22 21:00 Primidone 50 Mg Tab PO HS [facility] Sodium Chloride 10 ml 03/01/22 21:00 Sodium Chloride 0.9% Flush 10 Ml Syringe IV BID [facility] Tamsulosin HCl 0.4 mg 03/01/22 21:00 Tamsulosin 0.4 Mg Cap.Er.24h PO HS [facility] Intake and Output 02/28/22 03/01/22 03/01/22 22:59 06:59 14:59 Other: Weight 129.274 kg Patient Weight 03/02/22 06:59 Weight 129.274 kg 03/01/22 07:52 03/01/22 07:52
[2022-03-02 11:06] LABS: Chol/HDL Ratio 3.56 Ratio; LDL Cholesterol,Calculated 77.7 mg/dL (0.0-131.0)
[2022-03-02 11:59] LABS: Glucose,Whole Blood 160 mg/dL (70-110)
[2022-03-02] MEDS ORDERED: HYDROmorphone 0.5 MG/0.5 ML SYRINGE IVP PRN (16:33)
--- NOTE | 2022-03-02 16:34 | P.PN ---
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 Patient resides at [facility] and presented to the emergency department with a chief complaint of chest pain. The patient previously underwent hospitalization for similar complaint on 01/17/22 through 01/19/22 where he underwent a full cardiac workup complete with Lexiscan stress test. Echocardiogram completed 01/18/22 revealed a preserved EF of 55-60% with mild mitral and tricuspid regurgitation. Nuclear stress test reported to be nondiagnostic testing response to Lexiscan. Lexiscan stress test also completed reporting inconclusive and was reviewed by net software engineer whom recommended medical management starting patient on oral nitrite isosorbide mononitrate and oral anticoagulation with Eliquis at that time. Patient was later discharged back to assisted facility and he currently reports that since previous hospitalization he has been doing well with no further episodes of chest pain until this morning. Patient states this morning he awoken to sudden onset pain to midsternal chest accompanied by nausea, shortness of breath, and diaphoresis. Patient describes this pain as a pressure currently rated 7 out of 10 and states it feels as though someone is standing on his chest. He denies having any radiation of this pain and stating it remains directly in the center of his chest denies anything making it worse, but does report that pain did improve from previous 10 out of 10 down to 7 out of 10 after receiving "the cream" they put on my chest (nitropaste). Patient reports diaphoresis, nausea, and shortness of breath have resolved. He denies experiencing any headache, lightheadedness, dizziness, palpitations, vomiting, or experiencing any increased swelling in lower extremities. Patient does have chronic swelling to right lower extremity since previous CVA in which she reports remains unchanged. Patient underwent full evaluation in the emergency department. CBC revealed mild leukocytosis with WBC count of 12.8 and mild thrombocytopenia with platelet count of 146. BMP consistent with stage III CKD BUN 28, creatinine 1.52, and GFR 44. Magnesium was low at 1.5. Troponin negative at less than 0.012 and pro-BMP 1480 improved from previous visit of BMP 2430. Lipase was slightly elevated at 475. EKG completed revealing atrial fibrillation with a slow ventricular response at 57 bpm. Chest x-ray negative for acute cardiopulmonary process. Patient was admitted under our services with consultation to cardiology. Physical exam: Vital signs reviewed and stable. General: Nontoxic, no distress and appears stated age. Derm: Skin warm and dry, normal coloration for ethnicity. Head: Atraumatic, normocephalic and symmetric. Eyes: EOMs intact, no lid lag, and anicteric sclera Mouth: no lip lesions, mucus membranes moist Cardiovascular: regular rate and rhythm with normal S1S2, no murmur, positive posterior tibial pulses bilaterally, and cap refill < 2 seconds. Lungs: Respirations even, regular, and unlabored on room air. Lungs CTA bilaterally, no rhonchi, no rales, no wheezing, and no accessory muscle usage. Abdominal: soft, nontender to palpation, no guarding, no appreciable organomegaly Ext: No gross muscle atrophy, no edema, no contractures. Right-sided hemiparesis. Right lower extremity 1-2+ pitting edema Neuro: Speech clear, face symmetrical and CN II-XII grossly intact with no noted focal neuro deficits Psych: Alert and oriented to person, place, time, and situation. Appropriate and pleasant affect. Assessment and Plan of Care: Acute pancreatitis -CT abdomen and pelvis revealing mild focal pancreatitis in the pancreatic head -Patient placed on clear liquid diet -Symptomatic care and pain management -GI consulted Chest pain, Acute coronary event ruled out. -Cardiology consult, appreciate further recommendations -Telemetry monitoring -Troponins negative. -Continue cardiac medication regimen consisting of Eliquis, aspirin, atorvastatin, isosorbide mononitrate, losartan, and metoprolol. Chronic persistent atrial fibrillation -Continue oral anticoagulant with Eliquis. Chronic stage III kidney disease -Stable. We will continue to monitor with repeat a.m. labs. Hypertension -Monitor vital signs and continue daily medication regimen with losartan and metoprolol. Hyperlipidemia. -Continue daily medication regimen with atorvastatin. Cju-Xnyimtk-eqpdogxqn diabetes mellitus. -We will hold oral hypoglycemic agents in place patient on glycemic protocol with NovoLog sliding scale during hospitalization upon discharge patient to resume daily medication regimen with glipizide and metformin. History of CVA with right-sided hemiplegia. -Safe and supportive care with assistance as needed. -Continue daily aspirin and atorvastatin as well as metolazone and primidone. BPH. -Continue daily medication regimen of Flomax. The patient is admitted with an anticipated less than 2 midnight stay for evaluation of chest pain CODE STATUS: Full code DVT prophylaxis: Deidre Discussed with: Pt and RN Anticipated discharge date: 1-[address]: Return to [facility] A total of 46 minutes was spent on the care of this complex patient more than 50% of the time was spent in counseling and care coordination. I reviewed the documentation as provided by the RUBY above, who is the original author of this note. I agree with the documented assessment and plan, with the following changes: none Objective - Vital Signs Vital signs: Vital Signs Temp 98.2 F 03/02/22 07:00 Pulse 72 03/02/22 07:00 Resp 14 03/02/22 07:00 BP 141/79 03/02/22 07:00 Pulse Ox 96 03/02/22 07:00 FiO2 Intake & Output 03/01/22 03/02/22 03/02/22 18:59 06:59 18:59 Intake Total 400 Balance 400 Weight 129.274 kg Intake: Oral 400 Other: Voiding Method Incontinent Incontinent External Catheter # Voids 1 - Labs CBC & Chem 7: 03/04/22 05:26 03/04/22 05:26 Labs: Abnormal Lab Results - Last 24 Hours (Table) 03/01/22 03/01/22 03/02/22 Range/Units 16:59 20:15 06:50 POC Glucose (mg/dL) 283 H 230 H 122 H (70-110) mg/dL
[2022-03-02 17:07] LABS: Glucose,Whole Blood 143 mg/dL (70-110)
[2022-03-02 20:29] LABS: Glucose,Whole Blood 184 mg/dL (70-110)
[2022-03-02] MEDS: ASPIRIN 81 MG PO SCH (21:10)
[2022-03-02] MEDS: ATORVASTATIN 40 MG TAB PO SCH (21:10)
[2022-03-02] MEDS: LATANOPROST 0.005% OPHTH DROPS 2.5 ML BTL BOTH EYES SCH (21:10)
[2022-03-02] MEDS: PARoxetine 10 MG TAB PO SCH (21:11)
[2022-03-02] MEDS: DOCUSATE 100 MG CAP PO SCH (21:11)
[2022-03-02] MEDS: CHOLECALCIFEROL 25 MCG (1000 IU) TABLET PO SCH (21:11)
[2022-03-02] MEDS: TAMSULOSIN 0.4 MG CAP.ER.24H PO SCH (21:11)
[2022-03-02] MEDS: PRIMIDONE 50 MG TAB PO SCH (21:11)
[2022-03-03 07:45] LABS: Glucose,Whole Blood 118 mg/dL (70-110)
[2022-03-03] MEDS: INSULIN ASPART (NovoLOG) 100 UNIT/ML VIAL SQ SCH ×4 (08:05→20:21)
[2022-03-03] MEDS: SODIUM CHLORIDE 0.9% 1,000 ML IV SCH (08:59)
[2022-03-03] MEDS: metOLazone 5 MG TAB PO SCH (09:01)
[2022-03-03] MEDS: APIXABAN 2.5 MG TABLET PO SCH (09:01)
[2022-03-03] MEDS: ISOSORBIDE MONONITRATE ER 60 MG TAB.ER.24H PO SCH (09:01)
[2022-03-03] MEDS: LOSARTAN 50 MG TAB PO SCH (09:01)
[2022-03-03] MEDS: METOPROLOL TARTRATE 25 MG TAB PO SCH ×2 (09:01→20:24)
[2022-03-03] MEDS: PANTOPRAZOLE 40 MG TABLET PO SCH (09:01)
[2022-03-03] MEDS: GABAPENTIN 400 MG CAP PO SCH ×2 (09:01→20:21)
[2022-03-03] MEDS: polyethylene glycoL 3350 17 GM POWD.PACK PO SCH (09:02)
--- NOTE | 2022-03-03 10:28 | P.PN ---
Subjective Progress Note Date: 03/03/22 HISTORY OF PRESENT ILLNESS: This is a 76-year-old male with a past medical history significant for paroxysmal atrial fibrillation, hypertension, hyperlipidemia, diabetes. Patient follows in the office with Dr. Quinonez. We have been asked to see the patient in consultation for chest pain. Patient examined at the bedside. Patient states yesterday he began having chest discomfort. He states the pain was in the middle of his chest and he describes the pain as a pressure-like sensation. He reports having some nausea as well. He denies any diaphoresis. He reports having an episode of discomfort again this morning. At the time of my examination, he denies any chest pain or pressure. * EKG reveals atrial fibrillation with controlled ventricular rate * Chest xray chronic changes and cardiomegaly without acute pulmonary process * Laboratory data: WBC 12.8. Hemoglobin 14.3. Platelet count 146. Sodium 140. Potassium 4.1. BUN 28. Creatinine 1.52. Troponin negative 2. Lipase 475. * Current home cardiac medications include Eliquis 5mg BID, aspirin 81 mg a night, Lipitor 40 mg at night, Imdur 30 mg daily, losartan 100 mg daily, metoprolol tartrate 25 mg twice a day, Zaroxolyn 5 mg daily * Most recent echocardiogram obtained in January 2022 revealed ejection fraction 55-60% with mild mitral regurgitation and mild tricuspid regurgitation * Patient underwent Lexiscan stress test and January 2022 revealing Equivocal between and area of reversibility along the basal inferior wall versus diaphragmatic attenuation. 03/03/2022 Patient examined this morning at the bedside. Patient currently denies chest pain or pressure. He denies shortness of breath. He does report having another episode of chest discomfort this morning that lasted for a few minutes and then went away. Patient's vital signs are stable. PHYSICAL EXAM: VITAL SIGNS: Reviewed. GENERAL: Well-developed in no acute distress. HEENT: Head is normocephalic. Pupils are equal, round. Sclerae anicteric. Mucous membranes of the mouth are moist. Neck supple. No JVD or thyromegaly LUNGS: Respirations even and unlabored. Lungs essentially clear to auscultation bilaterally. HEART: Irregular rate and rhythm. S1 and S2 heard. ABDOMEN: Soft. Nondistended. Nontender. EXTREMITIES: Normal range of motion. No clubbing or cyanosis. Peripheral pulses intact. No lower extremity edema NEUROLOGIC: Awake and alert. Oriented x 3. ASSESSMENT: Chest pain Hypertension Hyperlipidemia Diabetes Paroxysmal atrial fibrillation History of CVA with residual paralysis, patient bedbound PLAN: Continue current cardiac medications Continue with medical management at this time Add Ranexa 500 mg twice a day Continue to observe patient for another 24 hours If he remains chest pain-free, he may be discharged tomorrow from a cardiac standpoint Further recommendations pending patient course Nurse practitioner note has been reviewed by physician. Signing provider agrees with the documented findings, assessment, and plan of care. Objective - Vital Signs Vital signs: Vital Signs Temp 98.0 F 03/03/22 07:00 Pulse 65 03/03/22 07:00 Resp 18 03/03/22 09:01 BP 142/70 03/03/22 07:00 Pulse Ox 95 03/03/22 07:00 FiO2 Intake & Output 03/02/22 03/03/22 03/03/22 18:59 06:59 18:59 Intake Total 838 300 Output Total 900 Balance -62 300 Intake: Oral 838 300 Output: Urine 900 Other: Voiding Method External Catheter External Catheter - Labs CBC & Chem 7: 03/01/22 07:52 03/01/22 07:52 Labs: Abnormal Lab Results - Last 24 Hours (Table) 03/02/22 03/02/22 03/02/22 Range/Units 05:43 11:56 17:06 POC Glucose (mg/dL) 160 H 143 H (70-110) mg/dL HDL Cholesterol 37.40 L (40.00-60.00) mg/dL 03/02/22 03/03/22 Range/Units 20:28 07:44 POC Glucose (mg/dL) 184 H 118 H (70-110) mg/dL HDL Cholesterol (40.00-60.00) mg/dL
[2022-03-03 11:16] LABS: HCT 42.5 % (39.0-53.0); HGB 13.3 gm/dL (13.0-17.5); MCH 30.9 pg (25.0-35.0); MCHC 31.2 g/dL (31.0-37.0); MCV 98.8 fL (80.0-100.0); Mean Platelet Volume 10.9; Platelet Count 146 k/uL (150-450); RDW 13.5 % (11.5-15.5)
[2022-03-03] MEDS: RANOLAZINE 500 MG TAB.ER.12H PO SCH ×2 (11:29→20:20)
[2022-03-03 11:39] LABS: ALT 24 U/L (4-49); AST 23 U/L (17-59); African American GFR (CKD) 62 (>60 ml/min/1.73 sqM); Albumin 3.8 g/dL (3.5-5.0); Albumin/Globulin Ratio 1.2; Alkaline Phosphatase 85 U/L (38-126); Anion Gap 12 mmol/L; Blood Urea Nitrogen 23 mg/dL (9-20); Calcium 8.5 mg/dL (8.4-10.2); Carbon Dioxide 26 mmol/L (22-30); Chloride 97 mmol/L (98-107); Globulin 3.1 g/dL; Glucose 171 mg/dL (74-99); Non-African American GFR(CKD) 53 (>60 ml/min/1.73 sqM); Potassium 3.9 mmol/L (3.5-5.1); Sodium 135 mmol/L (137-145); Total Bilirubin 0.6 mg/dL (0.2-1.3); Total Protein 6.9 g/dL (6.3-8.2)
[2022-03-03 12:33] LABS: Glucose,Whole Blood 140 mg/dL (70-110)
--- NOTE | 2022-03-03 14:28 | P.PN ---
Subjective Progress Note Date: 03/03/22 Patient has no new complaints today. Was started on Ranexa by cardiology, will be followed for 24 more hours. Gen: awake, alert HEENT: normocephalic, atraumatic, good hearing acuity, moist mucous membranes Resp: good air exchange, breathing comfortably with no accessory muscle use CVS: good distal perfusion x 4, GI: soft, NTTP, ND : no SPT, no CVAT, thomson catheter not present MSK: no pitting edema, no clubbing Neuro: non-focal, moving all extremities Psych: cooperative, euthymic mood Assessment/plan: Acute pancreatitis -CT abdomen and pelvis revealing mild focal pancreatitis in the pancreatic head -Patient placed on clear liquid diet -Symptomatic care and pain management -GI consulted Chest pain, Acute coronary event ruled out. -Cardiology consult, appreciate further recommendations -Telemetry monitoring -Troponins negative. -Continue cardiac medication regimen consisting of Eliquis, aspirin, atorvastatin, isosorbide mononitrate, losartan, and metoprolol. Chronic persistent atrial fibrillation -Continue oral anticoagulant with Eliquis. Chronic stage III kidney disease -Stable. We will continue to monitor with repeat a.m. labs. Hypertension -Monitor vital signs and continue daily medication regimen with losartan and metoprolol. Hyperlipidemia. -Continue daily medication regimen with atorvastatin. Rxl-Gepspqd-[id number] diabetes mellitus. -We will hold oral hypoglycemic agents in place patient on glycemic protocol with NovoLog sliding scale during hospitalization upon discharge patient to resume daily medication regimen with glipizide and metformin. History of CVA with right-sided hemiplegia. -Safe and supportive care with assistance as needed. -Continue daily aspirin and atorvastatin as well as metolazone and primidone. BPH. -Continue daily medication regimen of Flomax. CODE STATUS: Full code DVT prophylaxis: Eliquis Anticipated discharge date: 1-[address]: Return to [facility] Objective - Vital Signs Vital signs: Vital Signs Temp 98.0 F 03/03/22 07:00 Pulse 65 03/03/22 07:00 Resp 18 03/03/22 09:01 BP 142/70 03/03/22 07:00 Pulse Ox 95 03/03/22 07:00 FiO2 Intake & Output 03/02/22 03/03/22 03/03/22 18:59 06:59 18:59 Intake Total 838 300 Output Total 900 750 Balance -62 300 -750 Intake: Oral 838 300 Output: Urine 900 750 Other: Voiding Method External Catheter External Catheter - Labs CBC & Chem 7: 03/03/22 10:52 03/03/22 10:52 Labs: Abnormal Lab Results - Last 24 Hours (Table) 03/02/22 03/02/22 03/03/22 Range/Units 17:06 20:28 07:44 Plt Count (150-450) k/uL Sodium (137-145) mmol/L Chloride (98-107) mmol/L BUN (9-20) mg/dL Creatinine (0.66-1.25) mg/dL Glucose (74-99) mg/dL POC Glucose (mg/dL) 143 H 184 H 118 H (70-110) mg/dL 03/03/22 03/03/22 03/03/22 Range/Units 10:52 10:52 12:31 Plt Count 146 L (150-450) k/uL Sodium 135 L (137-145) mmol/L Chloride 97 L (98-107) mmol/L BUN 23 H (9-20) mg/dL Creatinine 1.28 H (0.66-1.25) mg/dL Glucose 171 H (74-99) mg/dL POC Glucose (mg/dL) 140 H (70-110) mg/dL
--- NOTE | 2022-03-03 15:23 | P.GSCN ---
History of Present Illness Consult date: 03/03/22 History of present illness: CHIEF COMPLAINT: Chest pain HISTORY OF PRESENT ILLNESS: This is a 76-year-old male who presented to the hospital with complaints of chest pain that started yesterday. Patient reported the pain was in the center of his chest with some nausea and shortness of breath. Patient has been seen by cardiology during this admission. Patient's troponins are negative 3 sets. Patient's pain is more located in the epigastric area. He was able tolerate clear liquid diet. He was found to have mild pancreatitis with a mildly elevated lipase. Computed tomography scan had shown evidence of pancreatitis as well as gallstones and sludge. Surgical consult was placed for gallstone pancreatitis. Patient is also been seen by GI service during this admission. Patient's past surgical history includes an appendectomy. Patient's cardiac history includes atrial fibrillation anticoagulated with Eliquis. Patient was able to tolerate clear liquids today. Denies any fever chills or sweats. Denies any vomiting. Denies any prior history of gallstones or any history of pancreatitis. Denies any alcohol use. PAST MEDICAL HISTORY: See list. PAST SURGICAL HISTORY: See list. MEDICATIONS: See list. ALLERGIES: See list. SOCIAL HISTORY: No illicit drug use. REVIEW OF SYSTEMS: CONSTITUTIONAL: Denies fever or chills. HEENT: Denies blurred vision, vision changes, or eye pain. Denies hemoptysis ENDOCRINE: Denies heat or cold intolerance. CARDIOVASCULAR: Denies chest pain or pressure. RESPIRATORY: No shortness of breath. GASTROINTESTINAL: Denies abdominal pain. Denies nausea or vomiting. NEURO: Denies history of seizures. PSYCH: No depression or suicidal ideation HEMATOLOGIC: Denies bleeding disorders. LYMPHATIC: The patient denies any lumps and bumps around the neck. GENITOURINARY: Denies any blood in urine or increased urinary frequency. MUSCULOSKELETAL: Denies myalgias. Denies joint swelling. Denies decreased range of motion beyond patients baseline. SKIN: Denies pruitis. Denies rash. PHYSICAL EXAM: VITAL SIGNS: Reviewed GENERAL: Well-developed in no acute distress. HEENT: No sclera icterus. Extraocular movements grossly intact. Moist buccal mucosa. Head is atraumatic, normocephalic. Hears conversational speech. No nasal drainage. NECK: Supple without lymphadenopathy. CHEST: Non-labored respirations and equal bilateral excursions. CARDIOVASCULAR: Palpable 2+ radial pulses. ABDOMEN: Soft. Obese. Nondistended. Epigastric tenderness with palpation MUSCULOSKELETAL: No clubbing or cyanosis. NEUROLOGIC: No focal or lateralizing signs. Cranial nerves II through XII grossly intact. PSYCH: Appropriate affect. Alert and oriented to person, place and time. SKIN: Well perfused. Good skin turgor. LABORATORY DATA: WBC 12.8 down to 9.0 Hgb 13.3 platelet 146 Sodium 135 potassium 3.9 creatinine 1.28 Magnesium 1.5 AST 23 ALT 24 total bilirubin 0.6 alk phos 85 troponin negative 3 sets BNP 1480 Lipase 475 down to 286 amylase 85 IMAGING: Computed tomography scan abdomen and pelvis showing possible mild focal pancreatitis in the pancreatic head. Small dependent gallstones and/or gallbladder sludge. No surrounding inflammatory changes to suggest acute cholecystitis. No biliary dilatation. ASSESSMENT: 1. Acute gallstone pancreatitis 2. Epigastric pain 3. Chest pain evaluated by cardiology 4. Paroxysmal atrial fibrillation 5. History of diabetes 6. History of CVA with residual paralysis, patient is bedbound 7. Hyperlipidemia 8. Hypertension 9. Hypomagnesemia 10. Chronic kidney disease PLAN: -Further recommendations forthcoming per surgeon -Continue supportive care -Continue clear liquid diet -Continue IV fluids Thank you for this consultation Physician Audiology Director note has been reviewed by physician. Signing provider agrees with the documented findings, assessment, and plan of care. REASON FOR CONSULTATION: Gallstones HISTORY OF PRESENT ILLNESS: The patient is a 68-year-old male with multiple medical comorbidities including congestive heart failure, atrial fibrillation, chronic anticoagulation who was recently admitted for chest pain. Patient has similar hospitalization a month ago where an extensive cardiac workup was begun. He is currently on blood thinners. His cardiac assessment has been unremarkable for acute coronary syndrome. Additional diagnostic studies were obtained. General surgery is consulted for possible gallstones. Patient reports substernal pain. He had passed nausea. No acute abdominal pain. PAST MEDICAL HISTORY: See list and reviewed PAST SURGICAL HISTORY: See list and reviewed MEDICATIONS: See list and reviewed ALLERGIES: See list and reviewed SOCIAL HISTORY: See list and reviewed. Reports that he lives in a retirement. FAMILY HISTORY: See list and reviewed REVIEW OF ORGAN SYSTEMS: CONSTITUTIONAL: No fevers or chills. Morbidly obese. Body mass index 40.9. EYES: Denies any trouble with vision. No glasses. HEENT: No difficulties with hearing. No nosebleeds. No difficulty swallowing. RESPIRATORY: Denies pneumonia. Has dyspnea on exertion. CARDIOVASCULAR: Has recurrent substernal chest pain. Has atrial fibrillation. Has congestive heart failure. Has hyperlipidemia. GASTROINTESTINAL: Denies fatty food intolerance. Has constipation. Has gastroesophageal reflux disease. GENITOURINARY: Denies any blood in urine or increased urinary frequency. NEUROLOGICAL: History of cerebrovascular accident with hemiparesis. MUSCULOSKELETAL: Denies any back pain, stiffness or joint arthritis. SKIN: No current skin cancer. No rash. PSYCHIATRIC: Has depressive disorder. ENDOCRINE: Denies current thyroid disorders. Has diabetes type 2, [id number]. HEME/LYMPHATIC: Denies any lumps and bumps around the neck. No recent deep venous thrombosis. ALLERGY/IMMUNOLOGY: No immunoglobulin therapy. No immune deficiencies. BREAST: Denies current breast lumps, pain or nipple discharge. PHYSICAL EXAM: VITALS: Reviewed CONSTITUTIONAL: Well developed and in no acute distress. EYES: Conjuctivae without sclera icterus. Extraocular movements grossly intact. HEAD, EARS, NOSE, THROAT: Moist buccal mucosa. Head is atraumatic, normocephalic. Hears conversational speech. No nasal drainage. NECK: Supple. No JV distention. No thyroidomegaly. RESPIRATORY: Non-labored respirations and equal bilateral excursions. No gross wheezes. CARDIOVASCULAR: Palpable 2+ radial pulses. ABDOMEN: Obese. No peritonitis. Nontender. LYMPH: No neck lymphadenopathy. MUSCULOSKELETAL: No clubbing cyanosis. SKIN: Warm and well perfused with good skin turgor. NEUROLOGIC: Cranial nerves II through XII grossly intact. Hemiparesis present. PSYCH: Appropriate affect. Alert and oriented to person, place and time. Displays appropriate insight. CLINCAL LABS: Reviewed. WBC elevated at 12.8 on admission. Lipase elevated at 475 on admission. LFTs normal admission. Creatinine elevated 1.52 on admission. IMAGING: Independently reviewed. CT of the abdomen and pelvis demonstrates gallstones without gallbladder wall thickening. Presence of right basilar pleural effusion. This is my independent interpretation. RADIOLOGY: Report reviewed CT of the abdomen and pelvis demonstrates focal pancreatitis at pancreatic head with gallbladder sludge. RECORDS: previous old records reviewed from January 2022 hospitalization echo report demonstrates severely thickened septal wall with ejection fraction 55- 60%. No aortic stenosis. Normal systolic function. No pulmonary hypertension. Lexiscan stress test demonstrates equivocal basal inferior wall reversibility for ischemia. Stress test demonstrates equivocal findings. ASSESSMENT: 1. Substernal chest pain with gallstone pancreatitis 2. Hypertensive heart disease 3. Diabetes type 2, [id number] 4. History of cerebrovascular accident with hemiparesis 5. Morbid obesity excess calories, BMI 40.9 6. Chronic anticoagulation for atrial fibrillation PLAN: 1. Will need cardiac risk assessment for attempt for surgical intervention gallstone pancreatitis 2. Otherwise start antibiotics for gallstone pancreatitis 3. May have low-fat diet or clear liquid diet in the interim 4. Hold anticoagulation ADVANCE DIRECTIVE: Thank you for this kind consultation. Past Medical History Past Medical History: CVA/TIA, Hyperlipidemia History of Any Multi-Drug Resistant Organisms: None Reported Past Surgical History: Appendectomy, Orthopedic Surgery Smoking Status: Never smoker Medications and Allergies Home Medications Medication Instructions Recorded Confirmed Type Acetaminophen Tab [Tylenol] 1,000 mg PO TID@0700,1300,1900 01/17/22 03/01/22 History Artificial Tears-Hypromellose 2 drops BOTH EYES Q4H PRN 01/17/22 03/01/22 History [Artificial Tear Drops] Cholecalciferol [Vitamin D3 (25 25 mcg PO HS 01/17/22 03/01/22 History Mcg = 1000 Iu)] Docusate [Colace] 200 mg PO HS 01/17/22 03/01/22 History Latanoprost/Pf [Latanoprost 0.005% 1 drop BOTH EYES HS 01/17/22 03/01/22 History Eye Drop] Losartan Potassium [Cozaar] 100 mg PO DAILY 01/17/22 03/01/22 History Magnesium Oxide 400 mg PO DAILY 01/17/22 03/01/22 History Omeprazole 20 mg PO DAILY 01/17/22 03/01/22 History PARoxetine [Paxil] 10 mg PO HS 01/17/22 03/01/22 History Potassium Chloride ER [K-Dur 20] 20 meq PO DAILY 01/17/22 03/01/22 History Primidone [Mysoline] 50 mg PO HS 01/17/22 03/01/22 History Sennosides [Senokot] 8.6 mg PO HS 01/17/22 03/01/22 History Sennosides [Senokot] 17.2 mg PO DAILY 01/17/22 03/01/22 History Tamsulosin [Flomax] 0.4 mg PO HS 01/17/22 03/01/22 History Vit C/E/Zn/Coppr/Lutein/Zeaxan 1 cap PO BID 01/17/22 03/01/22 History [Preservision Areds 2 Softgel] glipiZIDE [Glucotrol] 5 mg PO HS 01/17/22 03/01/22 History glipiZIDE [Glucotrol] 10 mg PO DAILY 01/17/22 03/01/22 History metOLazone [Zaroxolyn] 5 mg PO DAILY 01/17/22 03/01/22 History polyethylene glycoL 3350 [Miralax] 17 gm PO DAILY 01/17/22 03/01/22 History Apixaban [Eliquis] 2.5 mg PO BID 30 Days #60 tab 01/19/22 03/01/22 Rx Metoprolol Tartrate [Lopressor] 25 mg PO BID #0 01/19/22 03/01/22 Rx Aspirin EC [Ecotrin Low Dose] 81 mg PO HS 03/01/22 03/01/22 History Atorvastatin [Lipitor] 40 mg PO HS 03/01/22 03/01/22 History Nitroglycerin Sl Tabs [Nitrostat] 0.4 mg SL Q5M PRN 03/01/22 03/01/22 History Ranolazine [Ranexa] 500 mg PO Q12HR #60 tab 03/03/22 Rx Gabapentin [Neurontin] 400 mg PO BID #6 cap 03/05/22 Rx Isosorbide Mononitrate ER [Imdur] 60 mg PO DAILY #30 tab 03/05/22 Rx Allergies Allergy/AdvReac Type Severity Reaction Status Date / Time No Known Allergies Allergy Verified 03/01/22 09:22 Surgical - Exam Vital Signs Temp Pulse Resp BP Pulse Ox 97.9 F 63 20 151/94 96 03/01/22 07:42 03/01/22 07:42 03/01/22 07:42 03/01/22 07:42 03/01/22 07:42 Results - Labs 03/04/22 05:26 03/04/22 05:26 Abnormal Lab Results - Last 24 Hours (Table) 03/02/22 03/02/22 03/03/22 Range/Units 17:06 20:28 07:44 Plt Count (150-450) k/uL Sodium (137-145) mmol/L Chloride (98-107) mmol/L BUN (9-20) mg/dL Creatinine (0.66-1.25) mg/dL Glucose (74-99) mg/dL POC Glucose (mg/dL) 143 H 184 H 118 H (70-110) mg/dL 03/03/22 03/03/22 03/03/22 Range/Units 10:52 10:52 12:31 Plt Count 146 L (150-450) k/uL Sodium 135 L (137-145) mmol/L Chloride 97 L (98-107) mmol/L BUN 23 H (9-20) mg/dL Creatinine 1.28 H (0.66-1.25) mg/dL Glucose 171 H (74-99) mg/dL POC Glucose (mg/dL) 140 H (70-110) mg/dL Diabetes panel 03/03/22 Range/Units 10:52 Sodium 135 L (137-145) mmol/L Potassium 3.9 (3.5-5.1) mmol/L Chloride 97 L (98-107) mmol/L Carbon Dioxide 26 (22-30) mmol/L BUN 23 H (9-20) mg/dL Creatinine 1.28 H (0.66-1.25) mg/dL Glucose 171 H (74-99) mg/dL Calcium 8.5 (8.4-10.2) mg/dL AST 23 (17-59) U/L ALT 24 (4-49) U/L Alkaline Phosphatase 85 (38-126) U/L Total Protein 6.9 (6.3-8.2) g/dL Albumin 3.8 (3.5-5.0) g/dL Calcium panel 03/03/22 Range/Units 10:52 Calcium 8.5 (8.4-10.2) mg/dL Albumin 3.8 (3.5-5.0) g/dL Pituitary panel 03/03/22 Range/Units 10:52 Sodium 135 L (137-145) mmol/L Potassium 3.9 (3.5-5.1) mmol/L Chloride 97 L (98-107) mmol/L Carbon Dioxide 26 (22-30) mmol/L BUN 23 H (9-20) mg/dL Creatinine 1.28 H (0.66-1.25) mg/dL Glucose 171 H (74-99) mg/dL Calcium 8.5 (8.4-10.2) mg/dL Adrenal panel 03/03/22 Range/Units 10:52 Sodium 135 L (137-145) mmol/L Potassium 3.9 (3.5-5.1) mmol/L Chloride 97 L (98-107) mmol/L Carbon Dioxide 26 (22-30) mmol/L BUN 23 H (9-20) mg/dL Creatinine 1.28 H (0.66-1.25) mg/dL Glucose 171 H (74-99) mg/dL Calcium 8.5 (8.4-10.2) mg/dL Total Bilirubin 0.6 (0.2-1.3) mg/dL AST 23 (17-59) U/L ALT 24 (4-49) U/L Alkaline Phosphatase 85 (38-126) U/L Total Protein 6.9 (6.3-8.2) g/dL Albumin 3.8 (3.5-5.0) g/dL
[2022-03-03 17:27] LABS: Glucose,Whole Blood 133 mg/dL (70-110)
--- NOTE | 2022-03-03 18:00 | P.CONS ---
History of Present Illness - Reason for Consult Consult date: 03/03/22 (Late entry patient initially seen approximately 1100) acute pancreatitis Requesting physician: David Moreno - Chief Complaint Right upper quadrant pain - History of Present Illness This is a very pleasant 76-year-old male who presented to the emergency department complains of chest pain. He has a past medical history including hyper tension, CVA with right-sided hemiplegia, atrial fibrillation, diabetes mellitus, GERD, and chronic lower extremity edema. Patient had a chest x-ray that showed chronic changes and cardiomegaly without acute pulmonary process. Cardiology was consulted and had ruled out acute coronary event. He continued to have epigastric, right upper quadrant pain. And had a CT of the abdomen and pelvis that showed possible mild focal pancreatitis in the pancreatic head. Had mildly elevated lipase at 475 consistent with pancreatitis. Patient denies any previous history of pancreatitis. Denies any drinking alcohol. 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 No family history of pancreatitis, no new medications. Triglycerides were 89. Gastroenterology was consulted for acute pancreatitis. Today he states the abdominal pain is somewhat better. Yesterday he had intermittent pain throughout the day. Denies any nausea vomiting. States his appetite as well. He has no current labs from today. CT does show small de pendent gallstones and/or gallbladder sludge. No surrounding inflammatory change to suggest acute cholecystitis. No biliary dilation. Review of Systems REVIEW OF SYSTEMS: CARDIOPULMONARY: No chest pain, no shortness of breath.. Gastrointestinal: Right upper quadrant and epigastric pain. No nausea or vomiting. No hematemesis, coffee-ground emesis. No rectal bleeding, or melena. GENITOURINARY: No dysuria or hematuria. MUSCULOSKELETAL: Reports normal range of motion. Joint pain. SKIN: No rashes. No jaundice. ENDOCRINE: No chills, fevers. No excessive weight gain or loss. No polydipsia or polyuria. PSYCHIATRIC: Unremarkable. NEUROLOGY: No change in mental status. Denies dizziness, headache. Right hemiplegia. ENT: Vision unremarkable. CONSTITUTIONAL: No recent weight loss. No fever, chills, night sweats. Past Medical History Past Medical History: CVA/TIA, Hyperlipidemia History of Any Multi-Drug Resistant Organisms: None Reported Past Surgical History: Appendectomy, Orthopedic Surgery Smoking Status: Never smoker Medications and Allergies Home Medications Medication Instructions Recorded Confirmed Type Acetaminophen Tab [Tylenol] 1,000 mg PO TID@0700,1300,1900 01/17/22 03/01/22 History Artificial Tears-Hypromellose 2 drops BOTH EYES Q4H PRN 01/17/22 03/01/22 History [Artificial Tear Drops] Cholecalciferol [Vitamin D3 (25 25 mcg PO HS 01/17/22 03/01/22 History Mcg = 1000 Iu)] Docusate [Colace] 200 mg PO HS 01/17/22 03/01/22 History Latanoprost/Pf [Latanoprost 0.005% 1 drop BOTH EYES HS 01/17/22 03/01/22 History Eye Drop] Losartan Potassium [Cozaar] 100 mg PO DAILY 01/17/22 03/01/22 History Magnesium Oxide 400 mg PO DAILY 01/17/22 03/01/22 History Omeprazole 20 mg PO DAILY 01/17/22 03/01/22 History PARoxetine [Paxil] 10 mg PO HS 01/17/22 03/01/22 History Potassium Chloride ER [K-Dur 20] 20 meq PO DAILY 01/17/22 03/01/22 History Primidone [Mysoline] 50 mg PO HS 01/17/22 03/01/22 History Sennosides [Senokot] 8.6 mg PO HS 01/17/22 03/01/22 History Sennosides [Senokot] 17.2 mg PO DAILY 01/17/22 03/01/22 History Tamsulosin [Flomax] 0.4 mg PO HS 01/17/22 03/01/22 History Vit C/E/Zn/Coppr/Lutein/Zeaxan 1 cap PO BID 01/17/22 03/01/22 History [Preservision Areds 2 Softgel] glipiZIDE [Glucotrol] 5 mg PO HS 01/17/22 03/01/22 History glipiZIDE [Glucotrol] 10 mg PO DAILY 01/17/22 03/01/22 History metOLazone [Zaroxolyn] 5 mg PO DAILY 01/17/22 03/01/22 History polyethylene glycoL 3350 [Miralax] 17 gm PO DAILY 01/17/22 03/01/22 History Apixaban [Eliquis] 2.5 mg PO BID 30 Days #60 tab 01/19/22 03/01/22 Rx Gabapentin [Neurontin] 400 mg PO BID #6 cap 01/19/22 03/01/22 Rx Isosorbide Mononitrate ER [Imdur] 30 mg PO DAILY 30 Days #30 tab 01/19/22 03/01/22 Rx Metoprolol Tartrate [Lopressor] 25 mg PO BID #0 01/19/22 03/01/22 Rx Aspirin EC [Ecotrin Low Dose] 81 mg PO HS 03/01/22 03/01/22 History Atorvastatin [Lipitor] 40 mg PO HS 03/01/22 03/01/22 History Nitroglycerin Sl Tabs [Nitrostat] 0.4 mg SL Q5M PRN 03/01/22 03/01/22 History Ranolazine [Ranexa] 500 mg PO Q12HR #60 tab 03/03/22 Rx Allergies Allergy/AdvReac Type Severity Reaction Status Date / Time No Known Allergies Allergy Verified 03/01/22 09:22 Physical Exam Vitals: Vital Signs Temp Pulse Resp BP BP Pulse Ox 03/03/22 15:00 97.9 F 70 16 139/69 94 L 03/03/22 09:01 18 03/03/22 07:00 98.0 F 65 18 142/70 95 03/03/22 02:33 97.5 F L 61 18 102/57 96 03/03/22 02:00 65 18 03/02/22 20:00 65 18 03/02/22 19:35 97.9 F 65 18 105/59 93 L Intake and Output 03/03/22 03/03/22 03/03/22 06:59 14:59 22:59 Intake Total 150 Output Total 750 Balance 150 -750 Intake: Oral 150 Output: Urine 750 Other: Voiding Method External Catheter General appearance: The patient is alert, oriented, appears in no acute distress. HET: Head is normocephalic and atraumatic. Conjunctiva pink. Sclera anicteric. Neck: Supple without lymphadenopathy. Trachea midline. Heart: S1 S2. Regular rate and rhythm. Lungs: Clear to auscultation. Abdomen: Soft, right upper quadrant tenderness, nondistended with bowel sounds. No guarding or rigidity. Skin: No rashes. No jaundice. Extremities: Normal skin color and turgor. No pedal edema. Neurological: No focal deficits. Alert and oriented x3. Results CBC & Chem 7: 03/03/22 10:52 03/03/22 10:52 Labs: Abnormal Lab Results - Last 24 Hours (Table) 03/02/22 03/03/22 03/03/22 Range/Units 20:28 07:44 10:52 Plt Count 146 L (150-450) k/uL Sodium (137-145) mmol/L Chloride (98-107) mmol/L BUN (9-20) mg/dL Creatinine (0.66-1.25) mg/dL Glucose (74-99) mg/dL POC Glucose (mg/dL) 184 H 118 H (70-110) mg/dL 03/03/22 03/03/22 03/03/22 Range/Units 10:52 12:31 17:23 Plt Count (150-450) k/uL Sodium 135 L (137-145) mmol/L Chloride 97 L (98-107) mmol/L BUN 23 H (9-20) mg/dL Creatinine 1.28 H (0.66-1.25) mg/dL Glucose 171 H (74-99) mg/dL POC Glucose (mg/dL) 140 H 133 H (70-110) mg/dL CT scan - abdomen: report reviewed (As reported in HPI) Assessment and Plan (1) Acute pancreatitis Narrative/Plan: 76-year-old male who presented for chest pain who had acute coronary syndrome ruled out. Continue to have further chest pain in the epigastric and right upper quadrant. Initial labs were done that showed no elevation in LFTs however lipase was mildly elevated at 474. He had a CT of the abdomen and pelvis that showed possible mild pancreatitis around the pancreatic head, gallbladder with gallstones and sludge. Patient continues to have a positive Homans sign. Denies any alcohol use, new medications, or history of pancreatitis. Likely dealing with more of a gallstone pancreatitis, there is no clinical evidence for choledocholithiasis. Will consult general surgery. Continue to treat symptomatically. Current Visit: Yes Status: Acute Code(s): K85.90 - ACUTE PANCREATITIS WITHOUT NECROSIS OR INFECTION, UNSP SNOMED Code(s): 849973665 (2) Cholelithiasis Current Visit: Yes Status: Acute Code(s): K80.20 - CALCULUS OF GALLBLADDER W/O CHOLECYSTITIS W/O OBSTRUCTION SNOMED Code(s): 229448853 (3) Gallbladder sludge Current Visit: Yes Status: Acute Code(s): K82.8 - OTHER SPECIFIED DISEASES OF GALLBLADDER SNOMED Code(s): 65798770 (4) Right upper quadrant pain Current Visit: Yes Status: Acute Code(s): R10.11 - RIGHT UPPER QUADRANT PAIN SNOMED Code(s): 659418079 Plan: 1. Continue symptomatic and supportive care 2. Full liquid diet, advance as tolerated to low-fat diet 3. Continue with pain management 4. Antiemetics as needed 5. Protonix GI prophylaxis 6. Consult to Gen. surgery for cholelithiasis, gallbladder sludge 7. No plans on endoscopic evaluation Thank you for this consultation, we will continue to follow. Dr. Brien Ovalle I agree with the dictator's note, documented as a scribe by Peyton Valenzuela.
[2022-03-03] MEDS: LATANOPROST 0.005% OPHTH DROPS 2.5 ML BTL BOTH EYES SCH (20:20)
[2022-03-03] MEDS: ATORVASTATIN 40 MG TAB PO SCH (20:20)
[2022-03-03] MEDS: PRIMIDONE 50 MG TAB PO SCH (20:20)
[2022-03-03] MEDS: TAMSULOSIN 0.4 MG CAP.ER.24H PO SCH (20:20)
[2022-03-03] MEDS: ASPIRIN 81 MG PO SCH (20:20)
[2022-03-03] MEDS: CHOLECALCIFEROL 25 MCG (1000 IU) TABLET PO SCH (20:20)
[2022-03-03 20:21] LABS: Glucose,Whole Blood 146 mg/dL (70-110)
[2022-03-03] MEDS: DOCUSATE 100 MG CAP PO SCH (20:21)
[2022-03-03] MEDS: PARoxetine 10 MG TAB PO SCH (20:21)
[2022-03-04] MEDS: ACETAMINOPHEN TAB 325 MG TAB PO PRN (00:35)
[2022-03-04] MEDS: SODIUM CHLORIDE 0.9% 1,000 ML IV SCH ×2 (02:02→13:27)
[2022-03-04 08:03] LABS: Glucose,Whole Blood 135 mg/dL (70-110)
[2022-03-04] MEDS: INSULIN ASPART (NovoLOG) 100 UNIT/ML VIAL SQ SCH ×4 (09:04→21:51)
[2022-03-04] MEDS: LOSARTAN 50 MG TAB PO SCH (09:05)
[2022-03-04] MEDS: ISOSORBIDE MONONITRATE ER 60 MG TAB.ER.24H PO SCH (09:05)
[2022-03-04] MEDS: RANOLAZINE 500 MG TAB.ER.12H PO SCH ×2 (09:05→21:58)
[2022-03-04] MEDS: PANTOPRAZOLE 40 MG TABLET PO SCH (09:05)
[2022-03-04] MEDS: METOPROLOL TARTRATE 25 MG TAB PO SCH ×2 (09:05→21:51)
[2022-03-04] MEDS: GABAPENTIN 400 MG CAP PO SCH ×2 (09:06→21:51)
[2022-03-04] MEDS: polyethylene glycoL 3350 17 GM POWD.PACK PO SCH (09:06)
[2022-03-04] MEDS: metOLazone 5 MG TAB PO SCH (09:06)
--- NOTE | 2022-03-04 09:27 | P.PN ---
Subjective Progress Note Date: 03/04/22 HISTORY OF PRESENT ILLNESS: This is a 76-year-old male with a past medical history significant for paroxysmal atrial fibrillation, hypertension, hyperlipidemia, diabetes. Patient follows in the office with Dr. Quinonez. We have been asked to see the patient in consultation for chest pain. Patient examined at the bedside. Patient states yesterday he began having chest discomfort. He states the pain was in the middle of his chest and he describes the pain as a pressure-like sensation. He reports having some nausea as well. He denies any diaphoresis. He reports having an episode of discomfort again this morning. At the time of my examination, he denies any chest pain or pressure. * EKG reveals atrial fibrillation with controlled ventricular rate * Chest xray chronic changes and cardiomegaly without acute pulmonary process * Laboratory data: WBC 12.8. Hemoglobin 14.3. Platelet count 146. Sodium 140. Potassium 4.1. BUN 28. Creatinine 1.52. Troponin negative 2. Lipase 475. * Current home cardiac medications include Eliquis 5mg BID, aspirin 81 mg a night, Lipitor 40 mg at night, Imdur 30 mg daily, losartan 100 mg daily, metoprolol tartrate 25 mg twice a day, Zaroxolyn 5 mg daily * Most recent echocardiogram obtained in January 2022 revealed ejection fraction 55-60% with mild mitral regurgitation and mild tricuspid regurgitation * Patient underwent Lexiscan stress test and January 2022 revealing Equivocal between and area of reversibility along the basal inferior wall versus diaphragmatic attenuation. 03/03/2022 Patient examined this morning at the bedside. Patient currently denies chest pain or pressure. He denies shortness of breath. He does report having another episode of chest discomfort this morning that lasted for a few minutes and then went away. Patient's vital signs are stable. 03/04/2022 Patient examined this morning at the bedside. He denies any further episodes of chest pain. Denies SOB. Patient has been seen by general surgery for possible gallstone pancreatitis. His Eliquis was placed on hold for possible surgical intervention. PHYSICAL EXAM: VITAL SIGNS: Reviewed. GENERAL: Well-developed in no acute distress. HEENT: Head is normocephalic. Pupils are equal, round. Sclerae anicteric. Mucous membranes of the mouth are moist. Neck supple. No JVD or thyromegaly LUNGS: Respirations even and unlabored. Lungs essentially clear to auscultation bilaterally. HEART: Irregular rate and rhythm. S1 and S2 heard. ABDOMEN: Soft. Nondistended. Nontender. EXTREMITIES: Normal range of motion. No clubbing or cyanosis. Peripheral pulses intact. No lower extremity edema NEUROLOGIC: Awake and alert. Oriented x 3. ASSESSMENT: Chest pain Hypertension Hyperlipidemia Diabetes Paroxysmal atrial fibrillation History of CVA with residual paralysis, patient bedbound PLAN: Continue current cardiac medications Eliquis on hold per general surgery Patient is high risk to undergo any surgical intervention. Await definitive answer from general surgery if patient will be scheduled to undergo surgical intervention. Possible stress testing if surgery intervention is planned Further recommendations pending patient course Nurse practitioner note has been reviewed by physician. Signing provider agrees with the documented findings, assessment, and plan of care. Objective - Vital Signs Vital signs: Vital Signs Temp 97.8 F 03/04/22 07:00 Pulse 69 03/04/22 07:00 Resp 20 03/04/22 07:00 BP 169/77 03/04/22 07:00 Pulse Ox 95 03/04/22 07:00 FiO2 Intake & Output 03/03/22 03/04/22 03/04/22 18:59 06:59 18:59 Intake Total 180 Output Total 750 1600 Balance -570 -1600 Intake: Oral 180 Output: Urine 750 1600 Other: Voiding Method External Catheter External Catheter - Labs CBC & Chem 7: 03/03/22 10:52 03/03/22 10:52 Labs: Abnormal Lab Results - Last 24 Hours (Table) 03/03/22 03/03/22 03/03/22 Range/Units 10:52 10:52 12:31 Plt Count 146 L (150-450) k/uL Sodium 135 L (137-145) mmol/L Chloride 97 L (98-107) mmol/L BUN 23 H (9-20) mg/dL Creatinine 1.28 H (0.66-1.25) mg/dL Glucose 171 H (74-99) mg/dL POC Glucose (mg/dL) 140 H (70-110) mg/dL 03/03/22 03/03/22 03/04/22 Range/Units 17:23 20:19 08:01 Plt Count (150-450) k/uL Sodium (137-145) mmol/L Chloride (98-107) mmol/L BUN (9-20) mg/dL Creatinine (0.66-1.25) mg/dL Glucose (74-99) mg/dL POC Glucose (mg/dL) 133 H 146 H 135 H (70-110) mg/dL
--- NOTE | 2022-03-04 11:02 | P.PN ---
Subjective Progress Note Date: 03/04/22 CHIEF COMPLAINT: Epigastric abdominal pain HISTORY OF PRESENT ILLNESS: This is a 76-year-old man who presented to the ER with complaints of chest pain with nausea. His pain is mostly in the epigastric area. He is found to have evidence of possible gallstone pancreatitis. Patient reports that his pain is resolved today. He denies any nausea or vomiting. He did tolerate a full liquid diet. He has been seen by cardiology during this admission. Per golf ball inspector patient is high risk to undergo any surgical intervention and may require possible stress test. HIDA scan is ordered and pending. Afebrile. No new labs. Lipase was 475 on admission down to 286 LFTs are normal magnesium 1.9 WBC 9.0 PHYSICAL EXAM: VITAL SIGNS: Reviewed GENERAL: Well-developed in no acute distress. HEENT: No sclera icterus. Extraocular movements grossly intact. Moist buccal mucosa. Head is atraumatic, normocephalic. Hears conversational speech. No nasal drainage. NECK: Supple without lymphadenopathy. CHEST: Non-labored respirations and equal bilateral excursions. CARDIOVASCULAR: Palpable 2+ radial pulses. ABDOMEN: Soft. Nondistended. Nontender. MUSCULOSKELETAL: No clubbing or cyanosis. NEUROLOGIC: No focal or lateralizing signs. Cranial nerves II through XII grossly intact. PSYCH: Appropriate affect. Alert and oriented to person, place and time. SKIN: Well perfused. Good skin turgor. ASSESSMENT: 1. Acute gallstone pancreatitis 2. Epigastric pain 3. Chest pain evaluated by cardiology 4. Paroxysmal atrial fibrillation 5. History of diabetes 6. History of CVA with residual paralysis, patient is bedbound 7. Hyperlipidemia 8. Hypertension 9. Hypomagnesemia 10. Chronic kidney disease PLAN: -HIDA scan ordered for further evaluation of cholecystitis -Patient is tentatively scheduled for robotic cholecystectomy tomorrow, 03/05/[address] Denney -Further surgical recommendations forthcoming per HIDA scan results -Continue full liquids -Continue supportive care -Continue to hold Eliquis for now Physician Rounding Machine Operator note has been reviewed by physician. Signing provider agrees with the documented findings, assessment, and plan of care. CHIEF COMPLAINT: Gallstones HISTORY OF PRESENT ILLNESS: The patient is a 76-year-old male with multiple medical comorbidities including congestive heart failure, atrial fibrillation, chronic anticoagulation who was recently admitted for chest pain. Cardiac risk assessment demonstrates no acute coronary syndrome. He also presented with gallstone pancreatitis. Patient is tolerating diet. He reports substernal ch est pain. REVIEW OF ORGAN SYSTEMS: No fevers or chills. No shortness of breath. No blood in stools. PHYSICAL EXAM: VITALS: Reviewed CONSTITUTIONAL: Well developed and in no acute distress. EYES: Conjuctivae without sclera icterus. Extraocular movements grossly intact. HEAD, EARS, NOSE, THROAT: Moist buccal mucosa. Head is atraumatic, normocephalic. Hears conversational speech. No nasal drainage. RESPIRATORY: Non-labored respirations and equal bilateral excursions. No gross wheezes. CARDIOVASCULAR: Palpable 2+ radial pulses. ABDOMEN: Obese. No peritonitis. MUSCULOSKELETAL: No clubbing cyanosis. SKIN: Warm and well perfused with good skin turgor. NEUROLOGIC: Cranial nerves II through XII grossly intact. Hemiparesis present. PSYCH: Appropriate affect. Alert and oriented to person, place and time. Displays appropriate insight. CLINCAL LABS: Reviewed. WBC elevated at 12.8 on admission down to 9.8, normal. Lipase elevated at 475 on admission, down to normal 286. LFTs normal admission. Creatinine elevated 1.52 down to 1.28 ASSESSMENT: 1. Substernal chest pain with gallstone pancreatitis 2. Hypertensive heart disease 3. Diabetes type 2, [id number] 4. History of cerebrovascular accident with hemiparesis 5. Morbid obesity excess calories, BMI 40.9 6. Chronic anticoagulation for atrial fibrillation PLAN: 1. Overall, patient deemed extremely high-risk per cardiology for additional testing is being requested. 2. Recommend HIDA scan to evaluate for acute cholecystitis versus cholecystostomy tube placement 3. Continue off anticoagulant in the interim. 4. Recommend repeat CBC and CMP. Objective - Vital Signs Vital signs: Vital Signs Temp 97.8 F 03/04/22 07:00 Pulse 69 03/04/22 07:00 Resp 20 03/04/22 07:00 BP 169/77 03/04/22 07:00 Pulse Ox 95 03/04/22 07:00 FiO2 Intake & Output 03/03/22 03/04/22 03/04/22 18:59 06:59 18:59 Intake Total 180 Output Total 750 1600 Balance -570 -1600 Intake: Oral 180 Output: Urine 750 1600 Other: Voiding Method External Catheter External Catheter External Catheter - Labs CBC & Chem 7: 03/04/22 05:26 03/04/22 05:26 Labs: Abnormal Lab Results - Last 24 Hours (Table) 03/03/22 03/03/22 03/03/22 Range/Units 10:52 10:52 12:31 Plt Count 146 L (150-450) k/uL Sodium 135 L (137-145) mmol/L Chloride 97 L (98-107) mmol/L BUN 23 H (9-20) mg/dL Creatinine 1.28 H (0.66-1.25) mg/dL Glucose 171 H (74-99) mg/dL POC Glucose (mg/dL) 140 H (70-110) mg/dL 03/03/22 03/03/22 03/04/22 Range/Units 17:23 20:19 08:01 Plt Count (150-450) k/uL Sodium (137-145) mmol/L Chloride (98-107) mmol/L BUN (9-20) mg/dL Creatinine (0.66-1.25) mg/dL Glucose (74-99) mg/dL POC Glucose (mg/dL) 133 H 146 H 135 H (70-110) mg/dL
--- NOTE | 2022-03-04 11:38 | P.PN ---
Progress Note - Text Progress Note Date: 03/04/22 Patient seen and evaluated. I discussed with him extremely high risk for surgery with recent blood thinners and cardiac event. Overall, patient very high risk for surgery. HIDA scan ordered for acute cholecystitis.
--- NOTE | 2022-03-04 12:20 | P.PN ---
Subjective Progress Note Date: 03/04/22 Patient has no new complaints today. No further complaints of pain. Gen: awake, alert HEENT: normocephalic, atraumatic, good hearing acuity, moist mucous membranes Resp: good air exchange, breathing comfortably with no accessory muscle use CVS: good distal perfusion x 4, GI: soft, NTTP, ND : no SPT, no CVAT, thomson catheter not present MSK: no pitting edema, no clubbing Neuro: non-focal, moving all extremities Psych: cooperative, euthymic mood Assessment/plan: Acute gallstone pancreatitis -CT abdomen and pelvis revealing mild focal pancreatitis in the pancreatic head -Patient placed on clear liquid diet -Symptomatic care and pain management -GI consulted, recommended surgery consult -tentatively planned for lap yeny on 03/05 pending results of HIDA scan Chest pain, Acute coronary event ruled out. -Cardiology consult, appreciate further recommendations -Telemetry monitoring -Troponins negative. -Continue cardiac medication regimen consisting of Eliquis, aspirin, atorvastatin, isosorbide mononitrate, losartan, and metoprolol, ranexa Chronic persistent atrial fibrillation -Continue oral anticoagulant with Eliquis. Chronic stage III kidney disease -Stable. We will continue to monitor with repeat a.m. labs. Hypertension -Monitor vital signs and continue daily medication regimen with losartan and metoprolol. Hyperlipidemia. -Continue daily medication regimen with atorvastatin. Dxi-Ptmeyzi-elpbhyujm diabetes mellitus. -We will hold oral hypoglycemic agents in place patient on glycemic protocol with NovoLog sliding scale during hospitalization upon discharge patient to resume daily medication regimen with glipizide and metformin. History of CVA with right-sided hemiplegia. -Safe and supportive care with assistance as needed. -Continue daily aspirin and atorvastatin as well as metolazone and primidone. BPH. -Continue daily medication regimen of Flomax. CODE STATUS: Full code DVT prophylaxis: Eliquis Anticipated discharge date: 1-[address]: Return to [facility] Objective - Vital Signs Vital signs: Vital Signs Temp 97.8 F 03/04/22 07:00 Pulse 69 03/04/22 07:00 Resp 20 03/04/22 07:00 BP 169/77 03/04/22 07:00 Pulse Ox 95 03/04/22 07:00 FiO2 Intake & Output 03/03/22 03/04/22 03/04/22 18:59 06:59 18:59 Intake Total 180 Output Total 750 1600 Balance -570 -1600 Intake: Oral 180 Output: Urine 750 1600 Other: Voiding Method External Catheter External Catheter External Catheter - Labs CBC & Chem 7: 03/03/22 10:52 03/03/22 10:52 Labs: Abnormal Lab Results - Last 24 Hours (Table) 03/03/22 03/03/22 03/03/22 Range/Units 12:31 17:23 20:19 POC Glucose (mg/dL) 140 H 133 H 146 H (70-110) mg/dL 03/04/22 Range/Units 08:01 POC Glucose (mg/dL) 135 H (70-110) mg/dL
--- NOTE | 2022-03-04 13:05 | NM ---
Nuclear medicine hepatobiliary scan. HISTORY: Pain. DOSAGE: The patient received 5.2 mCi of Technetium 99m Choletec. FINDINGS: There is normal hepatic extraction. The gallbladder is seen by 50 minutes. There is bilia ry to bowel clearance by 60 minutes. Ejection fraction is not performed as requested by the referrin g clinician. IMPRESSION: 1. No diagnostic evidence of cholecystitis.
[2022-03-04] MEDS: AMPICILLIN-SULBACTAM 3 GM in SODIUM CHLORIDE 0.9% 100 ML IVPB SCH ×2 (13:27→21:53)
[2022-03-04 13:28] LABS: Glucose,Whole Blood 147 mg/dL (70-110)
[2022-03-04 14:45] LABS: Basophils # (A) 0.1 k/uL (0-0.2); Basophils % (A) 1 %; Eosinophils # (A) 0.4 k/uL (0-0.7); Eosinophils % (A) 4 %; HCT 44.3 % (39.0-53.0); HGB 13.7 gm/dL (13.0-17.5); Hypochromasia Moderate; Lymphocytes # (A) 1.2 k/uL (1.0-4.8); Lymphocytes % (A) 14 %; MCH 30.9 pg (25.0-35.0); MCHC 30.9 g/dL (31.0-37.0); MCV 99.8 fL (80.0-100.0); Mean Platelet Volume 11.5; Monocytes # (A) 0.6 k/uL (0-1.0); Monocytes % (A) 7 %; Neutrophils # (A) 6.5 k/uL (1.3-7.7); Neutrophils % (A) 73 %; Platelet Count 154 k/uL (150-450); RBC 4.44 m/uL (4.30-5.90); RDW 13.3 % (11.5-15.5)
--- NOTE | 2022-03-04 16:50 | P.PN ---
Subjective Progress Note Date: 03/04/22 Principal diagnosis: Acute pancreatitis This is a very pleasant 76-year-old male who presented to the emergency department complains of chest pain. He has a past medical history including hyper tension, CVA with right-sided hemiplegia, atrial fibrillation, diabetes mellitus, GERD, and chronic lower extremity edema. Patient had a chest x-ray that showed chronic changes and cardiomegaly without acute pulmonary process. Cardiology was consulted and had ruled out acute coronary event. He continued to have epigastric, right upper quadrant pain. And had a CT of the abdomen and pelvis that showed possible mild focal pancreatitis in the pancreatic head. Had mildly elevated lipase at 475 consistent with pancreatitis. Patient denies any previous history of pancreatitis. Denies any drinking alcohol. 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 No family history of pancreatitis, no new medications. Triglycerides were 89. Gastroenterology was consulted for acute pancreatitis. 03/04/2022 patient seen and examined as a follow-up. He states he has abso lutely no abdominal pain today. He denies any nausea or vomiting. Gen. surgery was consulted and have ordered a HIDA scan. Objective - Vital Signs Vital signs: Vital Signs Temp 97.8 F 03/04/22 07:00 Pulse 69 03/04/22 07:00 Resp 20 03/04/22 07:00 BP 169/77 03/04/22 07:00 Pulse Ox 95 03/04/22 07:00 FiO2 Intake & Output 03/03/22 03/04/22 03/04/22 18:59 06:59 18:59 Intake Total 180 Output Total 750 1600 Balance -570 -1600 Intake: Oral 180 Output: Urine 750 1600 Other: Voiding Method External Catheter External Catheter - Exam General appearance: The patient is alert, oriented, appears in no acute distress. Obese. HET: Head is normocephalic and atraumatic. Conjunctiva pink. Sclera anicteric. Neck: Supple without lymphadenopathy. Abdomen: Soft, nontender, nondistended with bowel sounds. No guarding or ri gidity. Extremities: Normal skin color and turgor. No pedal edema Skin: No rashes, no jaundice Neurological: No focal deficits. Alert and oriented -3. - Labs CBC & Chem 7: 03/04/22 05:26 03/03/22 10:52 Labs: Abnormal Lab Results - Last 24 Hours (Table) 03/03/22 03/03/22 03/03/22 Range/Units 10:52 10:52 12:31 Plt Count 146 L (150-450) k/uL Sodium 135 L (137-145) mmol/L Chloride 97 L (98-107) mmol/L BUN 23 H (9-20) mg/dL Creatinine 1.28 H (0.66-1.25) mg/dL Glucose 171 H (74-99) mg/dL POC Glucose (mg/dL) 140 H (70-110) mg/dL 03/03/22 03/03/22 03/04/22 Range/Units 17:23 20:19 08:01 Plt Count (150-450) k/uL Sodium (137-145) mmol/L Chloride (98-107) mmol/L BUN (9-20) mg/dL Creatinine (0.66-1.25) mg/dL Glucose (74-99) mg/dL POC Glucose (mg/dL) 133 H 146 H 135 H (70-110) mg/dL Assessment and Plan (1) Acute pancreatitis Narrative/Plan: 76-year-old male who presented for chest pain who had acute coronary syndrome ruled out. Continue to have further chest pain in the epigastric and right upper quadrant. Initial labs were done that showed no elevation in LFTs however lipase was mildly elevated at 474. He had a CT of the abdomen and pelvis that showed possible mild pancreatitis around the pancreatic head, gallbladder with gallstones and sludge. Patient continues to have a positive Homans sign. Denies any alcohol use, new medications, or history of pancreatitis. Likely dealing with more of a gallstone pancreatitis, there is no clinical evidence for choledocholithiasis. Will consult general surgery. Continue to treat symptomatically. Current Visit: Yes Status: Acute Code(s): K85.90 - ACUTE PANCREATITIS WITHOUT NECROSIS OR INFECTION, UNSP SNOMED Code(s): 147944235 (2) Cholelithiasis Current Visit: Yes Status: Acute Code(s): K80.20 - CALCULUS OF GALLBLADDER W/O CHOLECYSTITIS W/O OBSTRUCTION SNOMED Code(s): 407559357 (3) Gallbladder sludge Current Visit: Yes Status: Acute Code(s): K82.8 - OTHER SPECIFIED DISEASES OF GALLBLADDER SNOMED Code(s): 07584061 (4) Right upper quadrant pain Current Visit: Yes Status: Acute Code(s): R10.11 - RIGHT UPPER QUADRANT PAIN SNOMED Code(s): 930487804 Plan: 1. Continue symptomatic and supportive care 2. Diet per recommendations from general surgery 3. Continue with pain management 4. Antiemetics as needed 5. Protonix GI prophylaxis 6. Gen. surgery on consult, appreciate further recommendations 7. No plans on endoscopic evaluation Thank you for this consultation, we will continue to follow. Dr. Brien Ovalle I agree with the dictator's note, documented as a scribe by Peyton Valenzuela.
[2022-03-04 17:02] LABS: Glucose,Whole Blood 171 mg/dL (70-110)
[2022-03-04 20:46] LABS: Glucose,Whole Blood 177 mg/dL (70-110)
[2022-03-04] MEDS: ASPIRIN 81 MG PO SCH (21:51)
[2022-03-04] MEDS: ATORVASTATIN 40 MG TAB PO SCH (21:51)
[2022-03-04] MEDS: PARoxetine 10 MG TAB PO SCH (21:51)
[2022-03-04] MEDS: DOCUSATE 100 MG CAP PO SCH (21:51)
[2022-03-04] MEDS: CHOLECALCIFEROL 25 MCG (1000 IU) TABLET PO SCH (21:51)
[2022-03-04] MEDS: LATANOPROST 0.005% OPHTH DROPS 2.5 ML BTL BOTH EYES SCH (21:53)
[2022-03-04] MEDS: PRIMIDONE 50 MG TAB PO SCH (21:58)
[2022-03-04] MEDS: TAMSULOSIN 0.4 MG CAP.ER.24H PO SCH (21:58)
[2022-03-05 02:20] LABS: African American GFR (CKD) 60.6 (60.0-200.0); Albumin 3.8 g/dL (3.8-4.9); Albumin/Globulin Ratio 1.19 (1.60-3.17); Anion Gap 16.5 mmol/L (10.00-18.00); BUN/Creat Ratio 13.92 Ratio (12.00-20.00); Blood Urea Nitrogen 18.1 mg/dL (9.0-27.0); Calcium 8.8 mg/dL (8.7-10.3); Carbon Dioxide 21.5 mmol/L (20.0-27.5); Globulin 3.2 g/dL (1.6-3.3); Non-African American GFR(CKD) 52.3 (60.0-200.0); Potassium 4.1 mmol/L (3.5-5.5); Total Bilirubin 0.8 mg/dL (0.30-1.20)
[2022-03-05] MEDS: SODIUM CHLORIDE 0.9% 1,000 ML IV SCH (03:47)
[2022-03-05] MEDS: AMPICILLIN-SULBACTAM 3 GM in SODIUM CHLORIDE 0.9% 100 ML IVPB SCH (04:58)
[2022-03-05 07:23] LABS: Glucose,Whole Blood 138 mg/dL (70-110)
[2022-03-05] MEDS: INSULIN ASPART (NovoLOG) 100 UNIT/ML VIAL SQ SCH (08:18)
--- NOTE | 2022-03-05 08:33 | P.DS ---
Providers Date of admission: 03/02/22 16:29 Expected date of discharge: 03/05/22 Attending physician: Lizz Camacho DO Consults: 03/01/22 10:10 Consult Physician Urgent Consulting Provider: Quintin Raza Consult Reason/Comments: cp Do you want consulting provider notified?: Yes 03/02/22 16:29 Consult Physician Routine Consulting Provider: Mary Ovalle Consult Reason/Comments: acute pancreatitis Do you want consulting provider notified?: Yes 03/03/22 13:15 Consult Physician Routine Consulting Provider: Gena Denney Consult Reason/Comments: gall stone pancreatitis, cholelithiasis Do you want consulting provider notified?: Yes Primary care physician: Physician Nonstaff Hospital Course: Acute gallstone pancreatitis Chest pain, Acute coronary event ruled out. Chronic persistent atrial fibrillation Chronic stage III kidney disease Hypertension Hyperlipidemia. Dzt-Tooxbwa-owigwhnzd diabetes mellitus. History of CVA with right-sided hemiplegia. BPH. Patient is a very pleasant 76-year-old male with a past medical history of hypertension, CVA resulting in right sided hemiplegia, atrial fibrillation not on anticoagulation, ziu-zqcaujy-vrnooqnjk diabetes mellitus, GERD, chronic right lower extremity edema status post previous CVA, and BPH. Patient resides at [facility] and presented to the emergency department with a chief complaint of chest pain. Patient underwent full evaluation in the emergency department. CBC revealed mild leukocytosis with WBC count of 12.8 and mild thrombocytopenia with platelet count of 146. BMP consistent with stage III CKD BUN 28, creatinine 1.52, and GFR 44. Magnesium was low at 1.5. Troponin negative at less than 0.012 and pro-BMP 1480 improved from previous visit of BMP 2430. Lip ase was slightly elevated at 475. EKG completed revealing atrial fibrillation with a slow ventricular response at 57 bpm. Chest x-ray negative for acute cardiopulmonary process. Patient was admitted under our services with consultation to cardiology. Ultimately he was diagnosed with pancreatitis given elevated lipase and CT A/P findings. GI was consulted and recommended surgical evaluation for removal of gallbladder. Patient was seen by GI surgery who felt that although patient was high risk for surgery, they did feel the gallbladder needed to be removed if inflammed, however, subsequent HIDA scan was negative for cholecystitis. Patient's symptoms ultimately had resolved with bowel rest and conservative management and by day of discharge he was at his baseline level of health, no pain, tolerating PO, no nausea, no vomiting, having BMs. Pt d/c'd back to [facility] with f/u with PCP, cardiology, and general surgery. I spent 40 minutes coordinating this complex discharge. Gen: awake, alert HEENT: normocephalic, atraumatic, good hearing acuity, moist mucous membranes Resp: good air exchange, breathing comfortably with no accessory muscle use CVS: good distal perfusion x 4, GI: soft, NTTP, ND : no SPT, no CVAT, thomson catheter not present MSK: no pitting edema, no clubbing Neuro: non-focal, right sided paralysis Psych: cooperative, euthymic mood Patient Condition at Discharge: Good Plan - Discharge Summary New Discharge Prescriptions: New Ranolazine [Ranexa] 500 mg PO Q12HR #60 tab Continue Cholecalciferol [Vitamin D3 (25 Mcg = 1000 Iu)] 25 mcg PO HS Sennosides [Senokot] 8.6 mg PO HS polyethylene glycoL 3350 [Miralax] 17 gm PO DAILY PARoxetine [Paxil] 10 mg PO HS Omeprazole 20 mg PO DAILY Losartan Potassium [Cozaar] 100 mg PO DAILY glipiZIDE [Glucotrol] 5 mg PO HS Tamsulosin [Flomax] 0.4 mg PO HS Docusate [Colace] 200 mg PO HS Apixaban [Eliquis] 2.5 mg PO BID 30 Days #60 tab Nitroglycerin Sl Tabs [Nitrostat] 0.4 mg SL Q5M PRN PRN Reason: Chest Pain Aspirin EC [Ecotrin Low Dose] 81 mg PO HS Artificial Tears-Hypromellose [Artificial Tear Drops] 2 drops BOTH EYES Q4H PRN PRN Reason: Dry Eye(S) Vit C/E/Zn/Coppr/Lutein/Zeaxan [Preservision Areds 2 Softgel] 1 cap PO BID Acetaminophen Tab [Tylenol] 1,000 mg PO TID@0700,1300,1900 Sennosides [Senokot] 17.2 mg PO DAILY Primidone [Mysoline] 50 mg PO HS Potassium Chloride ER [K-Dur 20] 20 meq PO DAILY metOLazone [Zaroxolyn] 5 mg PO DAILY Magnesium Oxide 400 mg PO DAILY Latanoprost/Pf [Latanoprost 0.005% Eye Drop] 1 drop BOTH EYES HS glipiZIDE [Glucotrol] 10 mg PO DAILY Isosorbide Mononitrate ER [Imdur] 30 mg PO DAILY 30 Days #30 tab Metoprolol Tartrate [Lopressor] 25 mg PO BID #0 Gabapentin [Neurontin] 400 mg PO BID #6 cap Atorvastatin [Lipitor] 40 mg PO HS Discharge Medication List Acetaminophen Tab [Tylenol] 1,000 mg PO TID@0700,1300,1900 01/17/22 [History] Artificial Tears-Hypromellose [Artificial Tear Drops] 2 drops BOTH EYES Q4H PRN 01/17/22 [History] Cholecalciferol [Vitamin D3 (25 Mcg = 1000 Iu)] 25 mcg PO HS 01/17/22 [History] Docusate [Colace] 200 mg PO HS 01/17/22 [History] Latanoprost/Pf [Latanoprost 0.005% Eye Drop] 1 drop BOTH EYES HS 01/17/22 [History] Losartan Potassium [Cozaar] 100 mg PO DAILY 01/17/22 [History] Magnesium Oxide 400 mg PO DAILY 01/17/22 [History] Omeprazole 20 mg PO DAILY 01/17/22 [History] PARoxetine [Paxil] 10 mg PO HS 01/17/22 [History] Potassium Chloride ER [K-Dur 20] 20 meq PO DAILY 01/17/22 [History] Primidone [Mysoline] 50 mg PO HS 01/17/22 [History] Sennosides [Senokot] 8.6 mg PO HS 01/17/22 [History] Sennosides [Senokot] 17.2 mg PO DAILY 01/17/22 [History] Tamsulosin [Flomax] 0.4 mg PO HS 01/17/22 [History] Vit C/E/Zn/Coppr/Lutein/Zeaxan [Preservision Areds 2 Softgel] 1 cap PO BID 01/17/22 [History] glipiZIDE [Glucotrol] 5 mg PO HS 01/17/22 [History] glipiZIDE [Glucotrol] 10 mg PO DAILY 01/17/22 [History] metOLazone [Zaroxolyn] 5 mg PO DAILY 01/17/22 [History] polyethylene glycoL 3350 [Miralax] 17 gm PO DAILY 01/17/22 [History] Apixaban [Eliquis] 2.5 mg PO BID 30 Days #60 tab 01/19/22 [Rx] Gabapentin [Neurontin] 400 mg PO BID #6 cap 01/19/22 [Rx] Isosorbide Mononitrate ER [Imdur] 30 mg PO DAILY 30 Days #30 tab 01/19/22 [Rx] Metoprolol Tartrate [Lopressor] 25 mg PO BID #0 01/19/22 [Rx] Aspirin EC [Ecotrin Low Dose] 81 mg PO HS 03/01/22 [History] Atorvastatin [Lipitor] 40 mg PO HS 03/01/22 [History] Nitroglycerin Sl Tabs [Nitrostat] 0.4 mg SL Q5M PRN 03/01/22 [History] Ranolazine [Ranexa] 500 mg PO Q12HR #60 tab 03/03/22 [Rx] Follow up Appointment(s)/Referral(s): Nonstaff,Physician [Primary Care Provider] - 1-2 days Discharge Disposition: HOME SELF-CARE
[2022-03-05] MEDS: polyethylene glycoL 3350 17 GM POWD.PACK PO SCH (08:35)
[2022-03-05] MEDS: metOLazone 5 MG TAB PO SCH (08:35)
[2022-03-05] MEDS: ISOSORBIDE MONONITRATE ER 60 MG TAB.ER.24H PO SCH (08:35)
[2022-03-05] MEDS: GABAPENTIN 400 MG CAP PO SCH (08:36)
[2022-03-05] MEDS: LOSARTAN 50 MG TAB PO SCH (08:36)
[2022-03-05] MEDS: RANOLAZINE 500 MG TAB.ER.12H PO SCH (08:37)
[2022-03-05] MEDS: PANTOPRAZOLE 40 MG TABLET PO SCH (08:37)
[2022-03-05] MEDS: METOPROLOL TARTRATE 25 MG TAB PO SCH (08:37)
[2022-03-05] MEDS: ACETAMINOPHEN TAB 325 MG TAB PO PRN (08:40)
[2022-03-05 08:44] VITALS: BP 126/75; PULSE 63; RESP 18; TEMP 97.7
--- NOTE | 2022-03-05 09:11 | P.PN ---
Subjective Progress Note Date: 03/05/22 HISTORY OF PRESENT ILLNESS: This is a 76-year-old male with a past medical history significant for paroxysmal atrial fibrillation, hypertension, hyperlipidemia, diabetes. Patient follows in the office with Dr. Quinonez. We have been asked to see the patient in consultation for chest pain. Patient examined at the bedside. Patient states yesterday he began having chest discomfort. He states the pain was in the middle of his chest and he describes the pain as a pressure-like sensation. He reports having some nausea as well. He denies any diaphoresis. He reports having an episode of discomfort again this morning. At the time of my examination, he denies any chest pain or pressure. * EKG reveals atrial fibrillation with controlled ventricular rate * Chest xray chronic changes and cardiomegaly without acute pulmonary process * Laboratory data: WBC 12.8. Hemoglobin 14.3. Platelet count 146. Sodium 140. Potassium 4.1. BUN 28. Creatinine 1.52. Troponin negative 2. Lipase 475. * Current home cardiac medications include Eliquis 5mg BID, aspirin 81 mg a night, Lipitor 40 mg at night, Imdur 30 mg daily, losartan 100 mg daily, metoprolol tartrate 25 mg twice a day, Zaroxolyn 5 mg daily * Most recent echocardiogram obtained in January 2022 revealed ejection fraction 55-60% with mild mitral regurgitation and mild tricuspid regurgitation * Patient underwent Lexiscan stress test and January 2022 revealing Equivocal between and area of reversibility along the basal inferior wall versus diaphragmatic attenuation. 03/03/2022 Patient examined this morning at the bedside. Patient currently denies chest pain or pressure. He denies shortness of breath. He does report having another episode of chest discomfort this morning that lasted for a few minutes and then went away. Patient's vital signs are stable. 03/04/2022 Patient examined this morning at the bedside. He denies any further episodes of chest pain. Denies SOB. Patient has been seen by general surgery for possible gallstone pancreatitis. His Eliquis was placed on hold for possible surgical intervention. 03/05/2022 examined this might the bedside. Patient denies any chest pain or pressure. He denies shortness of breath. He denies any abdominal pain. He is tolerating his breakfast well without any nausea or vomiting. Vital signs are stable. PHYSICAL EXAM: VITAL SIGNS: Reviewed. GENERAL: Well-developed in no acute distress. HEENT: Head is normocephalic. Pupils are equal, round. Sclerae anicteric. Mucous membranes of the mouth are moist. Neck supple. No JVD or thyromegaly LUNGS: Respirations even and unlabored. Lungs essentially clear to auscultation bilaterally. HEART: Irregular rate and rhythm. S1 and S2 heard. ABDOMEN: Soft. Nondistended. Nontender. EXTREMITIES: Normal range of motion. No clubbing or cyanosis. Peripheral pulses intact. No lower extremity edema NEUROLOGIC: Awake and alert. Oriented x 3. ASSESSMENT: Chest pain Hypertension Hyperlipidemia Diabetes Paroxysmal atrial fibrillation History of CVA with residual paralysis, patient bedbound PLAN: Continue current cardiac medications Eliquis on hold per general surgery. resume if no surgical intervention is planned otherwise, patient is stable for discharge from a cardiac standpoint Further recommendations pending patient's course Nurse practitioner note has been reviewed by physician. Signing provider agrees with the documented findings, assessment, and plan of care. Objective - Vital Signs Vital signs: Vital Signs Temp 97.7 F 03/05/22 08:00 Pulse 63 03/05/22 08:00 Resp 18 03/05/22 08:00 BP 126/75 03/05/22 08:00 Pulse Ox 96 03/05/22 08:00 FiO2 Intake & Output 03/04/22 03/05/22 03/05/22 18:59 06:59 18:59 Intake Total 118 Output Total 900 1000 Balance -782 -1000 Intake: Oral 118 Output: Urine 900 1000 Other: Voiding Method Toilet External Catheter External Catheter # Bowel Movements 1 - Labs CBC & Chem 7: 03/04/22 05:26 03/04/22 05:26 Labs: Abnormal Lab Results - Last 24 Hours (Table) 03/04/22 03/04/22 03/04/22 Range/Units 05:26 05:26 13:26 MCHC 30.9 L (31.0-37.0) g/dL Est GFR (CKD-EPI)NonAf 52.3 L (60.0-200.0) Glucose 134 H (70-110) mg/dL POC Glucose (mg/dL) 147 H (70-110) mg/dL Albumin/Globulin Ratio 1.19 L (1.60-3.17) g/dL 03/04/22 03/04/22 03/05/22 Range/Units 17:00 20:44 07:21 MCHC (31.0-37.0) g/dL Est GFR (CKD-EPI)NonAf (60.0-200.0) Glucose (70-110) mg/dL POC Glucose (mg/dL) 171 H 177 H 138 H (70-110) mg/dL Albumin/Globulin Ratio (1.60-3.17) g/dL
--- NOTE | 2022-03-05 11:44 | P.PN ---
Subjective Progress Note Date: 03/05/22 CHIEF COMPLAINT: Epigastric abdominal pain HISTORY OF PRESENT ILLNESS: This is a 76-year-old man who presented to the ER with complaints of chest pain with nausea. He had pain in the epigastric area with nausea. This has now resolved. Initially the concern for possible gallstone pancreatitis. Lipase was only minimally elevated. Patient had a HIDA scan completed showing no diagnostic evidence of cholecystitis. Patient is afebrile. WBC is 9.0 Hgb 13.7 platelets 154 sodium 136 potassium is 4.1 cr eatinine 1.3 LFTs are normal mg 1.9. Patient evaluated by cardiology and is considered high risk for any surgical intervention PHYSICAL EXAM: VITAL SIGNS: Reviewed GENERAL: Well-developed in no acute distress. HEENT: No sclera icterus. Extraocular movements grossly intact. Moist buccal mucosa. Head is atraumatic, normocephalic. Hears conversational speech. No nasal drainage. NECK: Supple without lymphadenopathy. CHEST: Non-labored respirations and equal bilateral excursions. CARDIOVASCULAR: Palpable 2+ radial pulses. ABDOMEN: Soft. obese. Nondistended. Nontender. MUSCULOSKELETAL: No clubbing or cyanosis. NEUROLOGIC: No focal or lateralizing signs. Cranial nerves II through XII grossly intact. PSYCH: Appropriate affect. Alert and oriented to person, place and time. SKIN: Well perfused. Good skin turgor. ASSESSMENT: 1. Epigastric pain and nausea now resolved. No evidence of cholecystitis on HIDA 2. Cholelithiasis and gallbladder sludge noted on computed tomography scan 3. Mildly elevated lipase possible gallstone pancreatitis 4. Chest pain evaluated by cardiology 5. Paroxysmal atrial fibrillation 6. History of diabetes 7. History of CVA with residual paralysis, patient is bedbound 8. Hyperlipidemia 9. Hypertension 10. Hypomagnesemia improved 11. Chronic kidney disease PLAN: -Patient is asymptomatic and tolerating a low-fat diet. His repeat CBC and CMP are within normal range. Patient is stable from surgical standpoint for discharge -No surgical intervention planned -Okay to resume Deidre Physician Research Administrator note has been reviewed by physician. Signing provider agrees with the documented findings, assessment, and plan of care. Place additional documentation CHIEF COMPLAINT: Gallstones HISTORY OF PRESENT ILLNESS: The patient is a 76-year-old male with multiple medical comorbidities including congestive heart failure, atrial fibrillation, chronic anticoagulation who was admitted for chest pain. Additional studies for cholecystitis was obtained due to his high surgical risk from a cardiac standpoint. Patient reports difficulty commuting to the hospital as he lives in a long-term. REVIEW OF ORGAN SYSTEMS: No fevers or chills. No shortness of breath. No blood in stools. PHYSICAL EXAM: VITALS: Reviewed CONSTITUTIONAL: Well developed and in no acute distress. EYES: Conjuctivae without sclera icterus. Extraocular movements grossly intact. HEAD, EARS, NOSE, THROAT: Moist buccal mucosa. Head is atraumatic, normocephalic. Hears conversational speech. No nasal drainage. RESPIRATORY: Non-labored respirations and equal bilateral excursions. No gross wheezes. CARDIOVASCULAR: Palpable 2+ radial pulses. ABDOMEN: Obese. No peritonitis. MUSCULOSKELETAL: No clubbing cyanosis. SKIN: Warm and well perfused with good skin turgor. NEUROLOGIC: Cranial nerves II through XII grossly intact. Hemiparesis present. PSYCH: Appropriate affect. Alert and oriented to person, place and time. Displays appropriate insight. CLINCAL LABS: Reviewed. WBC normal. LFTs normal. STUDIES: HIDA scan independent reviewed demonstrating presence of gallbladder activity consistent with negative HIDA scan. This my independent interpretation. ASSESSMENT: 1. Substernal chest pain with gallstone pancreatitis 2. Hypertensive heart disease 3. Diabetes type 2, [id number] 4. History of cerebrovascular accident with hemiparesis 5. Morbid obesity excess calories, BMI 40.9 6. Chronic anticoagulation for atrial fibrillation PLAN: 1. His HIDA scan was negative for acute cholecystitis. As patient is doing extremely high risk, agree with additional cardiac assessment prior to surgical intervention. 2. May resume anticoagulant once cleared from a cardiac standpoint for surgical intervention 3. Per primary team, patient is being transferred back to long-term. Patient stable from a surgical standpoint. Objective - Vital Signs Vital signs: Vital Signs Temp 97.7 F 03/05/22 08:00 Pulse 63 03/05/22 08:00 Resp 18 03/05/22 08:00 BP 126/75 03/05/22 08:00 Pulse Ox 96 03/05/22 08:00 FiO2 Intake & Output 03/04/22 03/05/22 03/05/22 18:59 06:59 18:59 Intake Total 118 118 Output Total 900 1000 Balance -782 -1000 118 Intake: Oral 118 118 Output: Urine 900 1000 Other: Voiding Method Toilet External Catheter External Catheter # Bowel Movements 1 - Labs CBC & Chem 7: 03/04/22 05:26 03/04/22 05:26 Labs: Abnormal Lab Results - Last 24 Hours (Table) 03/04/22 03/04/22 03/04/22 Range/Units 05:26 05:26 13:26 MCHC 30.9 L (31.0-37.0) g/dL Est GFR (CKD-EPI)NonAf 52.3 L (60.0-200.0) Glucose 134 H (70-110) mg/dL POC Glucose (mg/dL) 147 H (70-110) mg/dL Albumin/Globulin Ratio 1.19 L (1.60-3.17) g/dL 03/04/22 03/04/22 03/05/22 Range/Units 17:00 20:44 07:21 MCHC (31.0-37.0) g/dL Est GFR (CKD-EPI)NonAf (60.0-200.0) Glucose (70-110) mg/dL POC Glucose (mg/dL) 171 H 177 H 138 H (70-110) mg/dL Albumin/Globulin Ratio (1.60-3.17) g/dL
[2022-03-05] MEDS ORDERED: APIXABAN 2.5 MG TABLET PO SCH (12:15)
[2022-03-05] MEDS ORDERED: APIXABAN 5 MG TAB PO SCH (12:15)
--- NOTE | 2022-03-05 13:45 | P.PN ---
Subjective Progress Note Date: 03/05/22 Principal diagnosis: Acute pancreatitis This is a very pleasant 76-year-old male who presented to the emergency department complains of chest pain. He has a past medical history including hyper tension, CVA with right-sided hemiplegia, atrial fibrillation, diabetes mellitus, GERD, and chronic lower extremity edema. Patient had a chest x-ray that showed chronic changes and cardiomegaly without acute pulmonary process. Cardiology was consulted and had ruled out acute coronary event. He continued to have epigastric, right upper quadrant pain. And had a CT of the abdomen and pelvis that showed possible mild focal pancreatitis in the pancreatic head. Had mildly elevated lipase at 475 consistent with pancreatitis. Patient denies any previous history of pancreatitis. Denies any drinking alcohol. 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 No family history of pancreatitis, no new medications. Triglycerides were 89. Gastroenterology was consulted for acute pancreatitis. 03/04/2022 patient seen and examined as a follow-up. He states he has abso lutely no abdominal pain today. He denies any nausea or vomiting. Gen. surgery was consulted and have ordered a HIDA scan. 03/05/2022. Patient seen and examined as a follow-up for pancreatitis. He continues to deny any abdominal pain, nausea or vomiting. He underwent a HIDA scan yesterday which was normal. Gen. surgery has no plans on surgical intervention. Objective - Vital Signs Vital signs: Vital Signs Temp 97.7 F 03/05/22 08:00 Pulse 63 03/05/22 08:00 Resp 18 03/05/22 08:00 BP 126/75 03/05/22 08:00 Pulse Ox 96 03/05/22 08:00 FiO2 Intake & Output 03/04/22 03/05/22 03/05/22 18:59 06:59 18:59 Intake Total 118 118 Output Total 900 1000 500 Balance -782 -1000 -382 Intake: Oral 118 118 Output: Urine 900 1000 500 Other: Voiding Method Toilet External Catheter External Catheter # Bowel Movements 1 - Exam General appearance: The patient is alert, oriented, appears in no acute distress. Obese. HET: Head is normocephalic and atraumatic. Conjunctiva pink. Sclera anicteric. Neck: Supple without lymphadenopathy. Abdomen: Soft, nontender, nondistended with bowel sounds. No guarding or rigidity. Extremities: Normal skin color and turgor. No pedal edema Skin: No rashes, no jaundice Neurological: No focal deficits. Alert and oriented -3. - Labs CBC & Chem 7: 03/04/22 05:26 03/04/22 05:26 Labs: Abnormal Lab Results - Last 24 Hours (Table) 03/04/22 03/04/22 03/04/22 Range/Units 05:26 05:26 17:00 MCHC 30.9 L (31.0-37.0) g/dL Est GFR (CKD-EPI)NonAf 52.3 L (60.0-200.0) Glucose 134 H (70-110) mg/dL POC Glucose (mg/dL) 171 H (70-110) mg/dL Albumin/Globulin Ratio 1.19 L (1.60-3.17) g/dL 03/04/22 03/05/22 Range/Units 20:44 07:21 MCHC (31.0-37.0) g/dL Est GFR (CKD-EPI)NonAf (60.0-200.0) Glucose (70-110) mg/dL POC Glucose (mg/dL) 177 H 138 H (70-110) mg/dL Albumin/Globulin Ratio (1.60-3.17) g/dL Assessment and Plan (1) Acute pancreatitis Narrative/Plan: 76-year-old male who presented for chest pain who had acute coronary syndrome ruled out. Continue to have further chest pain in the epigastric and right upper quadrant. Initial labs were done that showed no elevation in LFTs however lipase was mildly elevated at 474. He had a CT of the abdomen and pelvis that showed possible mild pancreatitis around the pancreatic head, gallbladder with gallstones and sludge. Patient continues to have a positive Homans sign. Denies any alcohol use, new medications, or history of pancreatitis. Likely dealing with more of a gallstone pancreatitis, there is no clinical evidence for choledocholithiasis. Will consult general surgery. Continue to treat symptomatically. Status: Acute Code(s): K85.90 - ACUTE PANCREATITIS WITHOUT NECROSIS OR INFECTION, UNSP SNOMED Code(s): 726479474 (2) Cholelithiasis Status: Acute Code(s): K80.20 - CALCULUS OF GALLBLADDER W/O CHOLECYSTITIS W/O OBSTRUCTION SNOMED Code(s): 062153796 (3) Gallbladder sludge Status: Acute Code(s): K82.8 - OTHER SPECIFIED DISEASES OF GALLBLADDER SNOME D Code(s): 33488962 (4) Right upper quadrant pain Status: Acute Code(s): R10.11 - RIGHT UPPER QUADRANT PAIN SNOMED Code(s): 822274275 Plan: 1. Continue symptomatic and supportive care 2. Diet per recommendations from general surgery 3. Continue with medical management Thank you for this consultation,patient is clear from gastroenterology for discharge. We will sign off at this time. Dr. Brien Ovalle I agree with the dictator's note, documented as a scribe by Peyton Valenzuela.
--- NOTE | 2022-03-08 13:08 | CDI ---
Documentation Clarification Form Date: 03/08/22 From: Grace Zavala Admit Date: 03/02/2022 04:29:00 PM Patient Name: Babar Altamirano Visit Number: [id number] Discharge Date: 03/05/2022 11:45:00 AM ATTENTION: The Clinical Documentation Specialists (CDI) and [facility] Coding Staff appreciate your assistance in clarifying documentation. Please respond to the clarification below the line at the bottom and electronically sign. The CDI & [facility] Coding staff will review the response and follow-up if needed. Please note: Queries are made part of the Legal Health Record. If you have any questions, please contact the author of this message via ITS. Dr. iLzabeth Hills, Your patient has the documented diagnosis of unspecified CHF in the 03/03 surgical consult. Additional information regarding the [type, acuity] of CHF is requested. History/Risk Factors: HTN w CHF and CKD stage III, right hemiparesis following cerebral infarction, morbid obesity w BMI of 40.9m T2DM W CKD, thrombocytopenia, persistent atrial fibrillation Clinical Indicators: Presented with chest pain and hypertension. VS/Pulse OX: T 97.9, P 63, R 20, BP 151/94, O2 96 on 2L NC BNP: 1480 01/18/22 Echocardiogram Results: Left ventricular ejection fraction is estimated at 55-60%. Chest X Ray: Chronic changes and cardiomegaly without acute pulmonary process. Treatment: Zaroxolyn 5 mg PO, Cozaar 100 mg PO, In your professional opinion, can you please clarify the [acuity and type] of CHF if known? [x] Chronic Diastolic Heart Failure (preserved EF) [ ] Other, please specify [ ] Unable to determine MTDD
== END 2022-03-05 11:45 | DRG 439 ==
LOC: EC 07:41 → 6NMEDSUR 10:10 → OBSVTOIN 03-02 16:29
PROVIDERS: ADMIT Internal Medicine; ATTEND Internal Medicine
DX: K85.10 Biliary acute pancreatitis without necrosis or infection (principal); I13.0 Hypertensive heart and chronic kidney disease with heart failure and stage 1 through stage 4 chronic kidney disease, or unspecified chronic kidney disease; I48.19 Other persistent atrial fibrillation; I69.351 Hemiplegia and hemiparesis following cerebral infarction affecting right dominant side; I50.32 Chronic diastolic (congestive) heart failure; Z68.41 Body mass index [BMI] 40.0-44.9, adult; D69.6 Thrombocytopenia, unspecified; E11.22 Type 2 diabetes mellitus with diabetic chronic kidney disease; E66.01 Morbid (severe) obesity due to excess calories; N18.30 Chronic kidney disease, stage 3 unspecified; E83.42 Hypomagnesemia; K80.20 Calculus of gallbladder without cholecystitis without obstruction; F32.A Depression, unspecified; E78.5 Hyperlipidemia, unspecified; I08.1 Rheumatic disorders of both mitral and tricuspid valves; K21.9 Gastro-esophageal reflux disease without esophagitis; N40.0 Benign prostatic hyperplasia without lower urinary tract symptoms; R32 Unspecified urinary incontinence; Z79.01 Long term (current) use of anticoagulants; Z79.84 Long term (current) use of oral hypoglycemic drugs; Z79.82 Long term (current) use of aspirin; Z79.899 Other long term (current) drug therapy; Z74.01 Bed confinement status
CPT/HCPCS: 36415; 71046; 74176; 78226; 80053; 80061; 82150; 83690; 83735; 83880; 84484; 85025; 85027; 85610; 85730; 93005; 99285

== ENCOUNTER → 2022-07-05 | Outpatient (CLI) | payer MEDICARE, OTHER ==
--- NOTE | 2022-07-05 15:15 | MR ---
EXAMINATION TYPE: MR brain wo con DATE OF EXAM: 07/05/2022 COMPARISON: NONE HISTORY: Stroke. Cerebral infarction per order. TECHNIQUE: Multiplanar, multisequence imaging of the brain and brainstem is performed without IV cont rast. FINDINGS: Diffusion weighted images demonstrate no evidence of a recent infarct or other diffusion abnormality. There is no extraaxial fluid collection or significant white matter signal abnormality. There is mode rate ventricular and sulcal prominence. There is focal and confluent areas of T2 hyperintensity great est the periventricular levels. There is old infarct involving the left posterior basal ganglia exten ding superiorly into the left coronal radiata. Old infarct inferior left occipital lobe is seen. Midline structures demonstrate normal morphology. The craniocervical junction appears within normal limits. Normal vascular flow voids are present. Incidental dominant or larger caliber left vertebral artery. Buwq-mq-ywjsziex mucosal thickening involving the anterior ethmoid sinuses bilaterally. Mild mucosal thickening involving the bilateral frontal sinuses. Nasal septum is deviated to left of midli ne. Mild fluid signal involves left mastoid air cells. Globes are intact bilaterally. The left lens i s thin suggesting prior cataract surgery IMPRESSION: 1. No MRI evidence for recent infarct. 2. Background moderate diffuse cerebral atrophy and chronic small vessel ischemic change with 2 old l eft-sided infarcts noted as detailed above. 3. Chronic paranasal sinus disease as detailed above. 4. Some fluid signal left mastoid air cells raises concern for mild left-sided mastoiditis, correlate clinically.
--- NOTE | 2022-07-06 06:54 | CT ---
EXAMINATION TYPE: CT angio head neck DATE OF EXAM: 07/05/2022 HISTORY: h/o 4 TIAs, right side tingling and paralyzation COMPARISON: MRI brain earlier today. CT DLP: 652.8 mGycm. Automated Exposure Control for Dose Reduction was Utilized. TECHNIQUE: CTA scan of the head and neck is performed with IV Contrast, patient injected with 65 mL of Isovue 370, axial images are obtained, coronal and sagittal reformatted images are reviewed. 3D re constructed images are created on an independent workstation and reviewed. FINDINGS: Carotid/Vascular Structures: Normal 3 vessel origin from aortic arch without significant stenosis. No significant plaque or stenosis in the common carotid arteries bilaterally. Mild to moderate mixed pl aque bilateral carotid bulb extends into proximal internal carotid artery without significant stenosi s. Patent external carotid arteries bilaterally without significant stenosis. Gpzc-kd-nebpjhol periph eral calcified plaque distal internal carotid arteries bilaterally. No significant stenosis. Patent a nterior communicating artery. No significant focal stenosis or aneurysm in the anterior circulation. Posterior circulation shows codominant vertebral arteries patent to the basilar junction. There are h ypoplastic bilateral posterior communicating arteries. There is no significant focal stenosis or aneu rysm in the posterior circulation. Other: Noncontrast images redemonstrate moderate ventricular and sulcal prominence along with moderat e low-attenuation in the deep and periventricular white matter. Nasal septum is deviated to left of m idline. There is efhx-eu-wwtxhraw mucosal thickening involving the right frontal sinuses bilaterally and moderate mucosal thickening involving anterior ethmoid sinuses bilaterally. Thinning of left lens suggesting prior cataract surgery is redemonstrated. Large bridging osteophytes in the cervical spine are present. Multilevel disc space narrowing is seen . IMPRESSION: Mild to moderate plaque bilateral carotid bulb level without significant stenosis. No sig nificant focal stenosis or aneurysm at the level of the [place]. NASCET criteria was used in interpretation of this exam?
== END | disposition home or self-care (01) ==
LOC: RADMRIMAIN 13:54
PROVIDERS: ATTEND Psychiatry & Neurology Pain Medicine
DX: I65.23 Occlusion and stenosis of bilateral carotid arteries (principal); I63.9 Cerebral infarction, unspecified; G31.9 Degenerative disease of nervous system, unspecified; I67.82 Cerebral ischemia; J32.8 Other chronic sinusitis; Z86.73 Personal history of transient ischemic attack (TIA), and cerebral infarction without residual deficits
CPT/HCPCS: 82565; 84520; 70496; 70498; 36415; 70551; Q9967

== ENCOUNTER 2022-09-07 14:47 | Inpatient (IN) | payer MEDICARE, OTHER ==
[2022-09-07] MEDS ORDERED: PIPERACILLIN-TAZOBACTAM 3.375 GM in SODIUM CHLORIDE 0.9% 100 ML IVPB STA (15:05)
[2022-09-07] MEDS ORDERED: ACETAMINOPHEN TAB 500 MG TAB PO STA (15:05)
[2022-09-07] MEDS ORDERED: SODIUM CHLORIDE 0.9% 1,000 ML IV STA ×2 (15:05)
[2022-09-07] MEDS ORDERED: VANCOMYCIN IV PER PHARMACY 1 EACH MISC MISCELLANE PRN (15:06)
[2022-09-07] MEDS ORDERED: VANCOMYCIN 1,500 MG in SODIUM CHLORIDE 0.9% 500 ML 500 ML IVPB STA (15:09)
--- NOTE | 2022-09-07 15:48 | ED ---
General Adult HPI - General Chief complaint: Fever Stated complaint: AMS Time Seen by Provider: 09/07/22 14:59 Source: patient, EMS, RN notes reviewed, old records reviewed Mode of arrival: EMS Limitations: no limitations - History of Present Illness Initial comments: 76-year-old male presenting for evaluation of fever and confusion. Patient is able to give a history. He denies complaint. No vomiting or diarrhea. No chest pain or abdominal pain. Patient is postop leper scopic cholecystectomy. He does not report any abdominal pain or distention. He denies cough. He denies dysuria. - Related Data Home Medications Medication Instructions Recorded Confirmed Artificial Tears-Hypromellose 1 drops BOTH EYES TID PRN 01/17/22 09/07/22 [Artificial Tear Drops] Cholecalciferol [Vitamin D3 (25 25 mcg PO DAILY 01/17/22 09/07/22 Mcg = 1000 Iu)] Latanoprost/Pf [Latanoprost 0.005% 1 drop LEFT EYE HS 01/17/22 09/07/22 Eye Drop] Omeprazole 20 mg PO HS 01/17/22 09/07/22 PARoxetine [Paxil] 10 mg PO HS 01/17/22 09/07/22 Potassium Chloride ER [K-Dur 20] 20 meq PO BID 01/17/22 09/07/22 Primidone [Mysoline] 50 mg PO HS 01/17/22 09/07/22 Sennosides [Senokot] 8.6 mg PO HS 01/17/22 09/07/22 Sennosides [Senokot] 17.2 mg PO DAILY 01/17/22 09/07/22 Tamsulosin [Flomax] 0.4 mg PO HS 01/17/22 09/07/22 polyethylene glycoL 3350 [Miralax] 17 gm PO DAILY 01/17/22 09/07/22 Atorvastatin [Lipitor] 40 mg PO HS 03/01/22 09/07/22 Nitroglycerin Sl Tabs [Nitrostat] 0.4 mg SL Q5M PRN 03/01/22 09/07/22 Apixaban [Eliquis] 5 mg PO BID 08/04/22 09/07/22 Baclofen 5 mg PO DAILY PRN 08/04/22 09/07/22 Gabapentin [Neurontin] 400 mg PO TID@0700,1300,1900 08/04/22 09/07/22 Multivitamins, Thera [Multivitamin 1 tab PO DAILY 08/04/22 09/07/22 (formulary)] Acetaminophen Tab [Tylenol Tab] 1,000 mg PO BID PRN 09/07/22 09/07/22 Docusate [Colace] 100 mg PO BID 09/07/22 09/07/22 HYDROcodone/APAP 5-325MG [[place] 1 tab PO Q6H 09/07/22 09/07/22 5-325] Ranolazine [Ranexa] 500 mg PO BID 09/07/22 09/07/22 glipiZIDE XL [Glucotrol Xl] 5 mg PO DAILY@1400 09/07/22 09/07/22 glipiZIDE XL [Glucotrol Xl] 10 mg PO DAILY@0600 09/07/22 09/07/22 Previous Rx's Medication Instructions Recorded Metoprolol Tartrate [Lopressor] 25 mg PO BID #0 01/19/22 Isosorbide Mononitrate ER [Imdur] 30 mg PO DAILY #30 tab 08/12/22 Allergies Allergy/AdvReac Type Severity Reaction Status Date / Time No Known Allergies Allergy Verified 09/07/22 16:05 Review of Systems ROS Statement: Those systems with pertinent positive or pertinent negative responses have been documented in the HPI. ROS Other: All systems not noted in ROS Statement are negative. Past Medical History Past Medical History: Chest Pain / Angina, CVA/TIA, Hyperlipidemia History of Any Multi-Drug Resistant Organisms: None Reported Past Surgical History: Appendectomy, Orthopedic Surgery Past Anesthesia/Blood Transfusion Reactions: No Reported Reaction Past Psychological History: No Psychological Hx Reported, Depression Smoking Status: Never smoker Past Alcohol Use History: None Reported Past Drug Use History: None Reported General Exam Limitations: no limitations General appearance: alert, in no apparent distress Head exam: Present: atraumatic, normocephalic Eye exam: Present: normal appearance, PERRL ENT exam: Present: mucous membranes dry Respiratory exam: Present: rhonchi, decreased breath sounds. Absent: respiratory distress Cardiovascular Exam: Present: tachycardia, irregular rhythm GI/Abdominal exam: Present: soft, other (Incision sites are clean and dry no erythema, no purulence). Absent: distended, tenderness, guarding, rebound Extremities exam: Present: other (Erythema circumferential to the left lower extremity below the knee. There is some tenderness to palpation) Neurological exam: Present: alert, oriented X3, CN II-XII intact. Absent: motor sensory deficit Psychiatric exam: Present: normal affect, normal mood Skin exam: Present: warm, dry, intact. Absent: cyanosis, diaphoretic Course Vital Signs 09/07/22 09/07/22 14:51 16:56 Temperature 102.3 F H 98.3 F Pulse Rate 130 H 141 H Respiratory 20 18 Rate Blood Pressure 126/73 128/97 O2 Sat by Pulse 96 98 Oximetry EKG Findings - EKG Comments: EKG Findings:: EKG a fibrillation with RVR rate of 135, QRS duration 93, QTC 399, no ST segment elevation Medical Decision Making - Medical Decision Making 76-year-old male presenting with fever from long-term. Was pt. sent in by a medical professional or institution (, PA, [employer] AND RECREATION MANAGER, urgent care, hospital, or long-term...) When possible be specific @ -Sent in from long-term Did you speak to anyone other than the patient for history (EMS, parent, family, police, friend...)? What history was obtained from this source @ -Paramedics Did you review nursing and triage notes (agree or disagree)? Why? @ -I reviewed and agree with nursing and triage notes Were old charts reviewed (outside hosp., previous admission, EMS record, old EKG, old radiological studies, urgent care reports/EKG's, long-term records)? Report findings @ -Reviewed previous EKGs, previous laboratory testing Differential Diagnosis (chest pain, altered mental status, abdominal pain women, abdominal pain men, vaginal bleeding, weakness, fever, dyspnea, syncope, headache, dizziness, GI bleed, back pain, seizure, CVA, palpatations, mental health, musculoskeletal)? @ -Differential Fever: Pneumonia, viral URI, endocarditis, myocarditis, pericarditis, otitis, sinusitis, peritonsillar Abscess, retropharyngeal Abscess, epiglottitis, peritonitis, appendicitis, Ely cystitis, diverticulitis, hepatitis, colitis, UTI, PID, TOA, pyelonephritis, prostatitis, epididymitis, meningitis, encephalitis, pulmonary embolism, CVA, thyroid storm, pancreatitis, adrenal crisis, cavernous sinus thrombosis, this is not meant to be an all-inclusive list. EKG interpreted by me (3pts min.). @ -As above X-rays interpreted by me (1pt min.). @ -Chest x-ray showing infiltrate, no pneumothorax CT interpreted by me (1pt min.). @ -None done U/S interpreted by me (1pt. min.). @ -None done What testing was considered but not performed or refused? (CT, X-rays, U/S, labs)? Why? @ -None What meds were considered but not given or refused? Why? @ -None Did you discuss the management of the patient with other professionals (palak otoole i.e. , PA, [employer] RECREATION MANAGER, lab, RT, psych nurse, social service technician, civil process server, teacher, learning officer, rifle case repairer)? Give summary @ -Case discussed with admitting team Was smoking cessation discussed for >3mins.? @ -No Was critical care preformed (if so, how long)? @ -yes Were there social determinants of health that impacted care today? How? (Homelessness, low income, unemployed, alcoholism, drug addiction, transportation, low edu. Level, literacy, decrease access to med. care, [facility], r ehab)? @ -No Was there de-escalation of care discussed even if they declined (Discuss DNR or withdrawal of care, Hospice)? DNR status @ -No What co-morbidities impacted this encounter? (DM, HTN, Smoking, COPD, CAD, Cancer, CVA, ARF, Chemo, Hep., AIDS, mental health diagnosis, sleep apnea, morbid obesity)? @ -Hypertension, atrial fibrillation Was patient admitted / discharged? Hospital course, mention meds given and route, prescriptions, significant lab abnormalities, going to OR and other pertinent info. @ -68-year-old male presenting with fever and tachycardia. Patient is in A. fib with RVR. Given fluid bolus and started on broad-spectrum antibiotics. He does have x-ray evidence of pneumonia. He has slight improvement in tachycardia with fluid bolus but does require heart is in for rate control. He will be admitted for further management of pneumonia, A. fib with RVR. Undiagnosed new problem with uncertain prognosis? @ -No Drug Therapy requiring intensive monitoring for toxicity (Heparin, Nitro, Insulin, Cardizem)? @ -No Were any procedures done? @ -No Diagnosis/symptom? @ -A. fib with RVR, fever, sepsis Acute, or Chronic, or Acute on Chronic? @ -Acute Uncomplicated (without systemic symptoms) or Complicated (systemic symptoms)? @ -Complicated Side effects of treatment? @ -No Exacerbation, Progression, or Severe Exacerbation? @ -No Poses a threat to life or bodily function? How? (Chest pain, [place], [place], pneumonia, PE, COPD, DKA, ARF, appy, cholecystitis, CVA, Diverticulitis, Homicidal, Suicidal, threat to staff... and all critical care pts) @ -[A. fib with RVR, dysrhythmia, shock - Lab Data Result diagrams: 09/07/22 15:11 09/07/22 15:11 Lab Results 09/07/22 09/07/22 09/07/22 Range/Units 15:11 15:11 15:11 WBC 11.6 H (3.8-10.6) k/uL RBC 4.68 (4.30-5.90) m/uL Hgb 14.5 (13.0-17.5) gm/dL Hct 43.7 (39.0-53.0) % MCV 93.5 D (80.0-100.0) fL MCH 31.0 (25.0-35.0) pg MCHC 33.2 (31.0-37.0) g/dL RDW 14.8 (11.5-15.5) % Plt Count 141 L (150-450) k/uL MPV 9.4 Neutrophils % 89 % Lymphocytes % 6 % Monocytes % 4 % Eosinophils % 0 % Basophils % 0 % Neutrophils # 10.2 H (1.3-7.7) k/uL Lymphocytes # 0.6 L (1.0-4.8) k/uL Monocytes # 0.5 (0-1.0) k/uL Eosinophils # 0.1 (0-0.7) k/uL Basophils # 0.0 (0-0.2) k/uL Sodium 131 L (137-145) mmol/L Potassium 5.0 (3.5-5.1) mmol/L Chloride 92 L (98-107) mmol/L Carbon Dioxide 28 (22-30) mmol/L Anion Gap 11 mmol/L BUN 26 H (9-20) mg/dL Creatinine 1.51 H (0.66-1.25) mg/dL Est GFR (CKD-EPI)AfAm 51 (>60 ml/min/1.73 sqM) Est GFR (CKD-EPI)NonAf 44 (>60 ml/min/1.73 sqM) Glucose 66 L (74-99) mg/dL Plasma Lactic Acid Bertram 2.8 H* (0.7-2.0) mmol/L Calcium 8.4 (8.4-10.2) mg/dL Total Bilirubin 0.8 (0.2-1.3) mg/dL AST 59 (17-59) U/L ALT 58 H (4-49) U/L Alkaline Phosphatase 161 H (38-126) U/L Total Protein 7.8 (6.3-8.2) g/dL Albumin 3.2 L (3.5-5.0) g/dL Critical Care Time Critical Care Time: Yes Total Critical Care Time: 35 Disposition Clinical Impression: Atrial fibrillation with RVR, Pneumonia Disposition: ADMITTED IP TO THIS HOSP Condition: Stable Is patient prescribed a controlled substance at d/c from ED?: No Referrals: Nabila Chowdhury DO [Primary Care Provider] - 1-2 days Time of Disposition: 18:18
[2022-09-07 15:55] LABS: Basophils % (A) 0 %; Eosinophils # (A) 0.1 k/uL (0-0.7); Eosinophils % (A) 0 %; HCT 43.7 % (39.0-53.0); HGB 14.5 gm/dL (13.0-17.5); Lymphocytes # (A) 0.6 k/uL (1.0-4.8); Lymphocytes % (A) 6 %; MCHC 33.2 g/dL (31.0-37.0); Mean Platelet Volume 9.4; Monocytes # (A) 0.5 k/uL (0-1.0); Monocytes % (A) 4 %; Neutrophils # (A) 10.2 k/uL (1.3-7.7); Neutrophils % (A) 89 %; Platelet Count 141 k/uL (150-450); RBC 4.68 m/uL (4.30-5.90); RDW 14.8 % (11.5-15.5); WBC 11.6 k/uL (3.8-10.6)
[2022-09-07 16:02] LABS: MCV 93.5 fL (80.0-100.0)
[2022-09-07 16:09] LABS: Albumin 3.2 g/dL (3.5-5.0); Calcium 8.4 mg/dL (8.4-10.2); Total Bilirubin 0.8 mg/dL (0.2-1.3); Total Protein 7.8 g/dL (6.3-8.2)
--- NOTE | 2022-09-07 16:44 | XR ---
EXAMINATION TYPE: XR chest 1V portable DATE OF EXAM: 09/07/2022 4:34 PM COMPARISON: Chest radiographs from 08/10/2022 TECHNIQUE: XR chest 1V portable Frontal view of the chest. CLINICAL INDICATION:Male, 76 years old with history of fever; FINDINGS: Patient is rotated. Lungs/Pleura: Bibasilar atelectasis. Left basilar airspace opacities are also present. No evidence fo r pneumothorax, or pleural effusion. Pulmonary vascularity: Unremarkable. Heart/mediastinum: Cardiomediastinal silhouette is unremarkable. Musculoskeletal: No acute osseous pathology. IMPRESSION: Left basilar airspace opacities correlate for pneumonia.
[2022-09-07] MEDS ORDERED: DILTIAZEM DRIP BOLUS FROM BAG 1 MG SOLN IV ONE (17:40)
[2022-09-07] MEDS ORDERED: AZITHROMYCIN 500 MG in SODIUM CHLORIDE 0.9% 250 ML IVPB STA (17:42)
[2022-09-07] MEDS ORDERED: NALOXONE 0.4 MG/ML 1 ML VIAL IV PRN (18:07)
[2022-09-07] MEDS ORDERED: ACETAMINOPHEN TAB 325 MG TAB PO PRN (18:13)
[2022-09-07] MEDS ORDERED: DILTIAZEM 125 MG in SODIUM CHLORIDE 0.9% 100 ML IV SCH (19:00)
[2022-09-07] MEDS ORDERED: HYDROcodone/APAP 5-325MG 1 EACH TAB PO STA (19:43)
[2022-09-07] MEDS ORDERED: HYDROmorphone 1 MG/ML 1 ML SYRINGE IVP STA (20:28)
--- NOTE | 2022-09-08 02:54 | P.HPIM ---
History of Present Illness H&P Date: 09/07/22 Chief Complaint: confusion , fever 76 year old male with afib on eliquis limited history available from RN , and chart. patient unable to provide any meaningful history at this time patient brought in for increase confusion and fever. he was found to have unstageable ulcer over the coccyx with some drainage and surrounding erythema . history of prior stroke and hypertension , which resulted in contracture of his right upper extremity in the ED he was found to have afib with RVR and started on cardizem patient recently underwent lap yeny. no report of abd pain Review of Systems ROS unobtainable: due to mental status Past Medical History Past Medical History: Chest Pain / Angina, CVA/TIA, Hyperlipidemia History of Any Multi-Drug Resistant Organisms: None Reported Past Surgical History: Appendectomy, Orthopedic Surgery Past Anesthesia/Blood Transfusion Reactions: No Reported Reaction Past Psychological History: No Psychological Hx Reported, Depression Smoking Status: Never smoker Past Alcohol Use History: None Reported Past Drug Use History: None Reported Medications and Allergies Home Medications Medication Instructions Recorded Confirmed Type Artificial Tears-Hypromellose 1 drops BOTH EYES TID PRN 01/17/22 09/07/22 History [Artificial Tear Drops] Cholecalciferol [Vitamin D3 (25 25 mcg PO DAILY 01/17/22 09/07/22 History Mcg = 1000 Iu)] Latanoprost/Pf [Latanoprost 0.005% 1 drop LEFT EYE HS 01/17/22 09/07/22 History Eye Drop] Omeprazole 20 mg PO HS 01/17/22 09/07/22 History PARoxetine [Paxil] 10 mg PO HS 01/17/22 09/07/22 History Potassium Chloride ER [K-Dur 20] 20 meq PO BID 01/17/22 09/07/22 History Primidone [Mysoline] 50 mg PO HS 01/17/22 09/07/22 History Sennosides [Senokot] 8.6 mg PO HS 01/17/22 09/07/22 History Sennosides [Senokot] 17.2 mg PO DAILY 01/17/22 09/07/22 History Tamsulosin [Flomax] 0.4 mg PO HS 01/17/22 09/07/22 History polyethylene glycoL 3350 [Miralax] 17 gm PO DAILY 01/17/22 09/07/22 History Metoprolol Tartrate [Lopressor] 25 mg PO BID #0 01/19/22 09/07/22 Rx Atorvastatin [Lipitor] 40 mg PO HS 03/01/22 09/07/22 History Nitroglycerin Sl Tabs [Nitrostat] 0.4 mg SL Q5M PRN 03/01/22 09/07/22 History Apixaban [Eliquis] 5 mg PO BID 08/04/22 09/07/22 History Baclofen 5 mg PO DAILY PRN 08/04/22 09/07/22 History Gabapentin [Neurontin] 400 mg PO TID@0700,1300,1900 08/04/22 09/07/22 History Multivitamins, Thera [Multivitamin 1 tab PO DAILY 08/04/22 09/07/22 History (formulary)] Isosorbide Mononitrate ER [Imdur] 30 mg PO DAILY #30 tab 08/12/22 09/07/22 Rx Acetaminophen Tab [Tylenol Tab] 1,000 mg PO BID PRN 09/07/22 09/07/22 History Docusate [Colace] 100 mg PO BID 09/07/22 09/07/22 History HYDROcodone/APAP 5-325MG [[place] 1 tab PO Q6H 09/07/22 09/07/22 History 5-325] Ranolazine [Ranexa] 500 mg PO BID 09/07/22 09/07/22 History glipiZIDE XL [Glucotrol Xl] 5 mg PO DAILY@1400 09/07/22 09/07/22 History glipiZIDE XL [Glucotrol Xl] 10 mg PO DAILY@0600 09/07/22 09/07/22 History Allergies Allergy/AdvReac Type Severity Reaction Status Date / Time No Known Allergies Allergy Verified 09/07/22 16:05 Physical Exam Vitals: Vital Signs Temp Pulse Resp BP Pulse Ox 09/07/22 19:37 112 H 18 111/58 99 09/07/22 16:56 98.3 F 141 H 18 128/97 98 09/07/22 14:51 102.3 F H 130 H 20 126/73 96 Intake and Output 09/07/22 09/07/22 09/07/22 06:59 14:59 22:59 Other: Weight 95.254 kg Constitutional: No acute distress, sleeping , confused Eyes: Anicteric sclerae, moist conjunctiva, Pupils equal round reactive to light ENMT: NC/AT Oropharynx clear, no erythema, or exudates Neck: Supple, no masses, or JVD No carotid bruits No thyromegaly Lungs: Clear to auscultation Clear to percussion Normal respiratory effort, no accessory muscle use Cardiovascular: Heart tachycardia , irregular No murmurs, gallops, or rubs left lower extremity edema, warmth and tender Abdominal: Soft Nontender, no guarding, rebound or rigidity Abdomen moving with respiration Normoactive bowel sounds No hepatomegaly, No splenomegaly No palpable mass No abdominal wall hernia noted Skin: RN reported unstageable ulcer over the coccyx, pics unavailable at this time, patient could not be moved due to pain and body habitus, defer exam to when he is more comfortable Extremities: contracture of the ight upper extremity no digital cyanosis No clubbing posterior tibial pulses intact and symmetrical Radial pulses intact and symmetrical left calf tenderness with warmth and erythema Psychiatric: sleepy and confused Neuro unable to perform Lymphatics: no palpable cervical or supraclavicular lymph nodes Results CBC & Chem 7: 09/07/22 15:11 09/07/22 15:11 Labs: Abnormal Lab Results - Last 24 Hours (Table) 09/07/22 09/07/22 09/07/22 Range/Units 15:11 15:11 15:11 WBC 11.6 H (3.8-10.6) k/uL Plt Count 141 L (150-450) k/uL Neutrophils # 10.2 H (1.3-7.7) k/uL Lymphocytes # 0.6 L (1.0-4.8) k/uL Sodium 131 L (137-145) mmol/L Chloride 92 L (98-107) mmol/L BUN 26 H (9-20) mg/dL Creatinine 1.51 H (0.66-1.25) mg/dL Glucose 66 L (74-99) mg/dL Plasma Lactic Acid Bertram 2.8 H* (0.7-2.0) mmol/L ALT 58 H (4-49) U/L Alkaline Phosphatase 161 H (38-126) U/L Albumin 3.2 L (3.5-5.0) g/dL Assessment and Plan Assessment: 76 year old male with afib on eliquis , coming in for confusion and fevers, suspected to have pneumonia and possible decubitus ulcer infection , I discussed the case with ED doc ,and I accepted the admission for cardizem drip to control afib with RVR, and IV antibiotics to treat sepsis 2/2 pneumonia and possible wound infection with anticipated length of stay > 2 midnights acute toxic encephalopathy secondary to underlying infection Sepsis secondary to underlying pneumonia vs wound infection afib with RVR plan follow up cultures initiated on antibiotics with azithromycin 500 mg IVPB daily for atypical MO coverage , Vancomycin dosing by pharmacy for MRSA , and ZOsyn 3.375 IVPB q8hrs for anaerobes and pseudomonus coverage surgery consult for wound care IVF hydration with normal saline WBC 11.6 , fever 102, tachycardia >120 initiated on cardizem drip to control his heart rate with goal heart rate < 110 cardiology consult continue with PO eliquis 5 mg bid continue with metoprolol 25 mg bid CXR showed left basal infilterates JS BUN 26, cr 1.5, Na 131 lactic acidosis 2.8 --> 1,6 avoid nephro toxic meds IVF hydration with normal saline 130 cc per hour monitor renal function and urine output left lower extremity warmth and edema , rule out DVT check d dimer check venous doppler US of the left lower extremity continue with eliquis for afib DVT PPX on eliquis for afib full code Sepsis - Sepsis Sepsis Focused Exam #1 Sepsis Focused Exam Date: 09/07/22 Sepsis Focused Exam Time: 20:35 Sepsis Focused Exam Complete: Yes Vital Signs & RN Notes Reviewed: Yes Capillary Refill: < 2 Seconds: Fingers, Toes Peripheral Pulses: Normal: Radial (R), Radial (L), Posterior Tibialis (R), Posterior Tibialis (L) Skin Color: Normal for Patient Respiratory Exam: normal lung sounds Cardiovascular Exam: tachycardia
[2022-09-08 03:48] LABS: Basophils % (A) 0 %; Eosinophils # (A) 0.1 k/uL (0-0.7); Eosinophils % (A) 0 %; HCT 34.8 % (39.0-53.0); HGB 11.6 gm/dL (13.0-17.5); Lymphocytes % (A) 6 %; MCH 30.9 pg (25.0-35.0); MCHC 33.3 g/dL (31.0-37.0); MCV 92.9 fL (80.0-100.0); Mean Platelet Volume 9.9; Monocytes # (A) 0.6 k/uL (0-1.0); Monocytes % (A) 4 %; Neutrophils # (A) 14.4 k/uL (1.3-7.7); Neutrophils % (A) 88 %; Platelet Count 151 k/uL (150-450); RBC 3.75 m/uL (4.30-5.90); RDW 14.8 % (11.5-15.5); WBC 16.3 k/uL (3.8-10.6)
[2022-09-08 04:18] LABS: Albumin 2.8 g/dL (3.5-5.0); Calcium 8.1 mg/dL (8.4-10.2); Potassium 4.6 mmol/L (3.5-5.1); Total Bilirubin 0.8 mg/dL (0.2-1.3)
[2022-09-08] MEDS: HYDROcodone/APAP 5-325MG 1 EACH TAB PO SCH ×4 (04:44→19:04)
[2022-09-08] MEDS: PIPERACILLIN-TAZOBACTAM 3.375 GM in SODIUM CHLORIDE 0.9% 100 ML IVPB SCH ×3 (04:44→19:05)
[2022-09-08] MEDS: MORPHINE SULFATE 4 MG/ML SYRINGE IVP PRN (04:45)
[2022-09-08 05:11] LABS: Glucose,Whole Blood 63 mg/dL (70-110)
[2022-09-08 05:25] LABS: Appearance,Urine Cloudy (Clear); Bacteria,Urine Rare /hpf; Bilirubin,Urine Negative (Negative); Blood,Urine Negative (Negative); Color,Urine Yellow; Glucose,Urine (UA) Negative (Negative); Ketones,Urine Negative (Negative); Leukocyte Esterase,Urine Negative (Negative); Mucus,Urine Rare /hpf; Nitrite,Urine Negative (Negative); PH, Urine 5.5 (5.0-8.0); Protein,Urine 2+ (Negative); RBC,Urine 1 /hpf (0-5); Specific Gravity,Urine 1.022 (1.001-1.035); Squamous Epithelial Cell,Urine <1 /hpf (0-4); WBC,Urine 3 /hpf (0-5)
[2022-09-08 05:49] LABS: Glucose,Whole Blood 77 mg/dL (70-110)
[2022-09-08 08:28] LABS: Glucose,Whole Blood 51 mg/dL (70-110)
[2022-09-08 08:28] LABS: Glucose,Whole Blood 49 mg/dL (70-110)
[2022-09-08 08:39] LABS: Glucose,Whole Blood 50 mg/dL (70-110)
[2022-09-08 08:39] LABS: Glucose,Whole Blood 62 mg/dL (70-110)
[2022-09-08 08:59] LABS: Glucose,Whole Blood 74 mg/dL (70-110)
[2022-09-08] MEDS ORDERED: METOPROLOL TARTRATE 25 MG TAB PO SCH (09:00)
[2022-09-08] MEDS ORDERED: APIXABAN 5 MG TAB PO SCH (09:00)
[2022-09-08] MEDS ORDERED: DEXTROSE 50% SYRINGE 50 ML IVP ONE ×2 (09:22→14:09)
--- NOTE | 2022-09-08 09:23 | US ---
EXAMINATION TYPE: US venous doppler duplex LE LT DATE OF EXAM: 09/08/2022 8:28 AM COMPARISON: RL 2021 CLINICAL HISTORY: r/o DVT L LE. Pain within the left leg. SIDE PERFORMED: Left TECHNIQUE: The lower extremity deep venous system is examined utilizing real time linear array sonog ben with graded compression, doppler sonography and color-flow sonography. VESSELS IMAGED: Common Femoral Vein Deep Femoral Vein Greater Saphenous Vein * Femoral Vein Popliteal Vein Small Saphenous Vein * Proximal Calf Veins (* superficial vessels) Left Leg: Exam is very limited due to body habitus. Patient unable to move leg. No evidence of DVT in veins imaged. Difficulty scanning behind patient's knee. Edema visualized within popliteal area . IMPRESSION: 1. Limited exam demonstrates no diagnostic evidence of DVT.
[2022-09-08] MEDS: ISOSORBIDE MONONITRATE ER 30 MG TAB.ER.24H PO SCH (09:25)
[2022-09-08] MEDS: GABAPENTIN 400 MG CAP PO SCH ×3 (09:25→19:04)
[2022-09-08] MEDS: METOPROLOL TARTRATE 50 MG TAB PO SCH ×2 (09:25→21:26)
[2022-09-08] MEDS: RANOLAZINE 500 MG TAB.ER.12H PO SCH ×2 (09:25→21:26)
[2022-09-08] MEDS: INSULIN ASPART (NovoLOG) 100 UNIT/ML VIAL SQ SCH ×4 (09:56→21:25)
--- NOTE | 2022-09-08 10:47 | P.CRDCN ---
History of Present Illness Consult date: 09/08/22 History of present illness: HISTORY OF PRESENT ILLNESS: This is a 76-year-old male with a past medical history significant for permanent atrial fibrillation, hypertension, hyperlipidemia, diabetes and chronic kidney disease. Patient follows in the office with Dr. Quinonez. We have been asked to see the patient in consultation for afib with RVR. Patient examined at the bedside. Patient presented to the emergency room with a chief complaint of s hortness of breath. He is being treated for left sided pneumonia. Patient was found to be in A. fib with RVR. Patient was started on IV Cardizem. Patient remains on IV Cardizem this morning at 5 mg an hour. Telemetry reveals atrial fibrillation with a heart rate in the 80s. Patient denies any chest pain or pressure. * EKG reveals atrial fibrillation with RVR * Chest xray left basilar airspace opacities correlate for pneumonia * Laboratory data: WBC 16.3. Hemoglobin 11.6. Platelet count 151. Sodium 130. Potassium 4.6. BUN 25. Creatinine 1.57. * Current home cardiac medications include Lipitor 40 mg at night, Imdur 30 mg daily, metoprolol tartrate 25 mg twice a day, Ranexa 500 mg twice a day, and Eliquis 5 mg twice a day * Left lower extremity Doppler: Negative for DVT * Most recent echocardiogram obtained in January 2022 revealed ejection fraction 55-60%, mild MR, mild TR * Cardiac catheterization history: January 2022 revealed equivocal between an area of reversibility along the basilar inferior wall versus diaphragmatic attenuation. This finding not corroborated on polar maps. REVIEW OF SYSTEMS: At the time of my exam: CONSTITUTIONAL: Denies fever or chills. HEENT: Denies blurred vision, vision changes, or eye pain. Denies hemoptysis CARDIOVASCULAR: Denies chest pain. Denies orthopnea. Denies PND. Denies palpitations RESPIRATORY: Denies shortness of breath. GASTROINTESTINAL: Denies abdominal pain. Denies nausea or vomiting. HEMATOLOGIC: Denies bleeding disorders. GENITOURINARY: Denies any blood in urine. SKIN: Denies pruitis. Denies rash. PHYSICAL EXAM: VITAL SIGNS: Reviewed. GENERAL: Well-developed in no acute distress. HEENT: Head is normocephalic. Pupils are equal, round. Sclerae anicteric. Mucous membranes of the mouth are moist. Neck supple. No JVD or thyromegaly LUNGS: Respirations even and unlabored. Lungs coarse to auscultation bilaterally. HEART: Irregular rate and rhythm. S1 and S2 heard. Systolic murmur noted ABDOMEN: Soft. Nondistended. Nontender. EXTREMITIES: Normal range of motion. No clubbing or cyanosis. Peripheral pulses intact. Trace lower extremity edema. Right-sided flaccid secondary to previous CVA NEUROLOGIC: Awake and alert. Oriented x 3. ASSESSMENT: Left-sided pneumonia Permanent atrial fibrillation with RVR History of CVA with residual right-sided paralysis, patient bedbound Chronic kidney disease Hypertension Hyperlipidemia Diabetes Sacral decubitus ulcer PLAN: Obtain 2-D echo to assess cardiac structure and function Resume home cardiac medications Discontinue IV Cardizem Increase metoprolol to 50 mg twice a day Continue to monitor monitoring Patient's anticoagulation remains on hold pending general surgery consult for decubitus ulcer Further recommendations pending patient's course Nurse practitioner note has been reviewed by physician. Signing provider agrees with the documented findings, assessment, and plan of care. Past Medical History Past Medical History: Chest Pain / Angina, CVA/TIA, Hyperlipidemia History of Any Multi-Drug Resistant Organisms: None Reported Past Surgical History: Appendectomy, Orthopedic Surgery Past Anesthesia/Blood Transfusion Reactions: No Reported Reaction Past Psychological History: No Psychological Hx Reported, Depression Smoking Status: Never smoker Past Alcohol Use History: None Reported Past Drug Use History: None Reported Medications and Allergies Home Medications Medication Instructions Recorded Confirmed Type Artificial Tears-Hypromellose 1 drops BOTH EYES TID PRN 01/17/22 09/07/22 History [Artificial Tear Drops] Cholecalciferol [Vitamin D3 (25 25 mcg PO DAILY 01/17/22 09/07/22 History Mcg = 1000 Iu)] Latanoprost/Pf [Latanoprost 0.005% 1 drop LEFT EYE HS 01/17/22 09/07/22 History Eye Drop] Omeprazole 20 mg PO HS 01/17/22 09/07/22 History PARoxetine [Paxil] 10 mg PO HS 01/17/22 09/07/22 History Potassium Chloride ER [K-Dur 20] 20 meq PO BID 01/17/22 09/07/22 History Primidone [Mysoline] 50 mg PO HS 01/17/22 09/07/22 History Sennosides [Senokot] 8.6 mg PO HS 01/17/22 09/07/22 History Sennosides [Senokot] 17.2 mg PO DAILY 01/17/22 09/07/22 History Tamsulosin [Flomax] 0.4 mg PO HS 01/17/22 09/07/22 History polyethylene glycoL 3350 [Miralax] 17 gm PO DAILY 01/17/22 09/07/22 History Metoprolol Tartrate [Lopressor] 25 mg PO BID #0 01/19/22 09/07/22 Rx Atorvastatin [Lipitor] 40 mg PO HS 03/01/22 09/07/22 History Nitroglycerin Sl Tabs [Nitrostat] 0.4 mg SL Q5M PRN 03/01/22 09/07/22 History Apixaban [Eliquis] 5 mg PO BID 08/04/22 09/07/22 History Baclofen 5 mg PO DAILY PRN 08/04/22 09/07/22 History Gabapentin [Neurontin] 400 mg PO TID@0700,1300,1900 08/04/22 09/07/22 History Multivitamins, Thera [Multivitamin 1 tab PO DAILY 08/04/22 09/07/22 History (formulary)] Isosorbide Mononitrate ER [Imdur] 30 mg PO DAILY #30 tab 08/12/22 09/07/22 Rx Acetaminophen Tab [Tylenol Tab] 1,000 mg PO BID PRN 09/07/22 09/07/22 History Docusate [Colace] 100 mg PO BID 09/07/22 09/07/22 History HYDROcodone/APAP 5-325MG [[place] 1 tab PO Q6H 09/07/22 09/07/22 History 5-325] Ranolazine [Ranexa] 500 mg PO BID 09/07/22 09/07/22 History glipiZIDE XL [Glucotrol Xl] 5 mg PO DAILY@1400 09/07/22 09/07/22 History glipiZIDE XL [Glucotrol Xl] 10 mg PO DAILY@0600 09/07/22 09/07/22 History Allergies Allergy/AdvReac Type Severity Reaction Status Date / Time No Known Allergies Allergy Verified 09/07/22 16:05 Physical Exam Vitals: Vital Signs Temp Pulse Pulse Resp BP BP Pulse Ox 04/05/23 07:49 100 09/08/22 03:48 98.5 F 108 H 20 128/77 99 09/08/22 00:11 97.5 F L 09/07/22 21:22 99.0 F 105 H 18 137/67 97 09/07/22 19:37 112 H 18 111/58 99 09/07/22 16:56 98.3 F 141 H 18 128/97 98 09/07/22 14:51 102.3 F H 130 H 20 126/73 96 Intake and Output 09/07/22 09/08/22 09/08/22 22:59 06:59 14:59 Intake Total 600 Balance 600 Intake: Oral 600 Other: # Voids 1 # Bowel Movements 1 Weight 95.254 kg Results 09/08/22 03:28 09/08/22 03:28 Cardiac Enzymes 09/07/22 09/08/22 Range/Units 15:11 03:28 AST 59 45 (17-59) U/L CBC 09/07/22 09/08/22 Range/Units 15:11 03:28 WBC 11.6 H 16.3 H (3.8-10.6) k/uL RBC 4.68 3.75 L (4.30-5.90) m/uL Hgb 14.5 11.6 L (13.0-17.5) gm/dL Hct 43.7 34.8 L (39.0-53.0) % Plt Count 141 L 151 (150-450) k/uL Comprehensive Metabolic Panel 09/07/22 09/08/22 Range/Units 15:11 03:28 Sodium 131 L 130 L (137-145) mmol/L Potassium 5.0 4.6 (3.5-5.1) mmol/L Chloride 92 L 95 L (98-107) mmol/L Carbon Dioxide 28 27 (22-30) mmol/L BUN 26 H 25 H (9-20) mg/dL Creatinine 1.51 H 1.57 H (0.66-1.25) mg/dL Glucose 66 L 49 L* (74-99) mg/dL Calcium 8.4 8.1 L (8.4-10.2) mg/dL AST 59 45 (17-59) U/L ALT 58 H 50 H (4-49) U/L Alkaline Phosphatase 161 H 153 H (38-126) U/L Total Protein 7.8 7.0 (6.3-8.2) g/dL Albumin 3.2 L 2.8 L (3.5-5.0) g/dL Current Medications Generic Name Dose Route Start Last Admin Trade Name Freq PRN Reason Stop Dose Admin Acetaminophen 650 mg 09/07/22 18:13 Acetaminophen Tab 325 Mg Tab PO Q6HR PRN Mild Pain or Fever > 100.5 Hydrocodone Bitart/Acetaminophen 1 each 09/08/22 02:45 09/08/22 09:25 Hydrocodone/Apap 5-325mg 1 Each Tab PO 1 each Q6H MERI Administration Atorvastatin Calcium 40 mg 09/08/22 21:00 Atorvastatin 40 Mg Tab PO HS MERI Gabapentin 400 mg 09/08/22 07:00 09/08/22 09:25 Gabapentin 400 Mg Cap PO 400 mg TID@0700,1300,1900 [facility] Administration Vancomycin HCl 1,500 mg/ 500 mls @ 167 mls/hr 09/08/22 10:00 Sodium Chloride IVPB Q24H MERI Azithromycin 500 mg/ Sodium 250 mls @ 250 mls/hr 09/08/22 20:00 Chloride IVPB 09/10/22 20:59 DAILY@2000 [facility] Protocol Piperacillin Sod/Tazobactam 100 mls @ 25 mls/hr 09/08/22 03:00 09/08/22 04:44 Sod 3.375 gm/ Sodium Chloride IVPB 25 mls/hr Q8H MERI Administration Protocol Insulin Aspart 0 unit 09/08/22 07:30 09/08/22 09:56 Insulin Aspart (Novolog) 100 Unit/Ml Vial SQ Not Given ACHS [facility] Protocol Isosorbide Mononitrate 30 mg 09/08/22 09:00 09/08/22 09:25 Isosorbide Mononitrate Er 30 Mg Tab.Er.24h PO 30 mg DAILY [facility] Administration Metoprolol Tartrate 50 mg 09/08/22 09:00 09/08/22 09:25 Metoprolol Tartrate 50 Mg Tab PO 50 mg BID [facility]I Administration Morphine Sulfate 4 mg 09/08/22 02:56 09/08/22 04:45 Morphine Sulfate 4 Mg/Ml Syringe IVP 4 mg Q6HR PRN Administration Pain Naloxone HCl 0.2 mg 09/07/22 18:07 Naloxone 0.4 Mg/Ml 1 Ml Vial IV Q2M PRN Opioid Reversal Pantoprazole Sodium 40 mg 09/08/22 21:00 Pantoprazole 40 Mg Tablet PO HS MERI Ranolazine 500 mg 09/08/22 09:00 09/08/22 09:25 Ranolazine 500 Mg Tab.Er.12h PO 500 mg BID MERI Administration Tamsulosin HCl 0.4 mg 09/08/22 21:00 Tamsulosin 0.4 Mg Cap.Er.24h PO HS MERI Intake and Output 09/07/22 09/08/22 09/08/22 22:59 06:59 14:59 Intake Total 600 Balance 600 Intake: Oral 600 Other: # Voids 1 # Bowel Movements 1 Weight 95.254 kg 09/08/22 03:28 09/08/22 03:28
[2022-09-08 11:40] LABS: Glucose,Whole Blood 63 mg/dL (70-110)
[2022-09-08 11:40] LABS: Glucose,Whole Blood 66 mg/dL (70-110)
[2022-09-08 12:08] LABS: Glucose,Whole Blood 71 mg/dL (70-110)
[2022-09-08 12:08] LABS: Glucose,Whole Blood 67 mg/dL (70-110)
[2022-09-08] MEDS: VANCOMYCIN 1,500 MG in SODIUM CHLORIDE 0.9% 500 ML 500 ML IVPB SCH (13:43)
[2022-09-08 14:10] LABS: Glucose,Whole Blood 53 mg/dL (70-110)
--- NOTE | 2022-09-08 14:15 | P.GSCN ---
History of Present Illness Consult date: 09/08/22 History of present illness: CHIEF COMPLAINT: Fever HISTORY OF PRESENT ILLNESS: This is a 76-year-old male who presents the hospital with fever and confusion. Patient had evidence of pneumonia and also sacral decubitus ulcer. Currently on IV antibiotics. Patient has been febrile and tachycardic with elevated white count. Surgical service has been consulted for sacral decubitus ulcer. Patient had recent laparoscopic cholecystectomy on 08/06/[address] Valles. Patient also followed by cardiology regards to Marii harmon with RVR. Patient has known history of atrial fibrillation and is on Eliquis. Patient seen and examined with Dr. Valles PAST MEDICAL HISTORY: See below PAST SURGICAL HISTORY: See below MEDICATIONS: See below ALLERGIES: See below SOCIAL HISTORY: No illicit drug use. REVIEW OF SYSTEMS: CONSTITUTIONAL: Denies fever or chills. HEENT: Denies blurred vision, vision changes, or eye pain. Denies hemoptysis CARDIOVASCULAR: Denies chest pain or pressure. RESPIRATORY: No shortness of breath. GASTROINTESTINAL: See HPI for pertinent findings HEMATOLOGIC: Denies bleeding disorders. GENITOURINARY: Denies any blood in urine or increased urinary frequency. SKIN: Denies pruitis. Denies rash. PHYSICAL EXAM: VITAL SIGNS: Reviewed GENERAL: Well-developed in no acute distress. ABDOMEN: Soft. Obese. Nondistended. Nontender NEUROLOGIC: Alert and oriented. Cranial nerves II through XII grossly intact. Skin: Sacral decubitus ulcer patient has skin breakdown with stage II ulcer on the left and the larger stage II ulcer on the right about 2 cm in length. There is evidence of small amount of blood oozing from the larger ulceration which is probably about 5 cm length. No drainage. No odor. Stool present. LABORATORY DATA: WBC is 16.3 HgB 11.6 platelet 151 Sodium is 130 potassium 4.6 creatinine 1.57 AST 45 AST 50 alk phos 153 IMAGING: Chest x-ray left basilar airspace opacities correlate for pneumonia. ASSESSMENT: 1. Sacral decubitus ulcer PLAN: -No surgical intervention planned -Consult wound care service for wound care of sacral decubitus ulcer -Continue offloading -Okay to resume Eliquis from surgical standpoint -Continue antibiotics for pneumonia Physician [employer] Architect note has been reviewed by physician. Signing provider agrees with the documented findings, assessment, and plan of care. Past Medical History Past Medical History: Chest Pain / Angina, CVA/TIA, Hyperlipidemia History of Any Multi-Drug Resistant Organisms: None Reported Past Surgical History: Appendectomy, Orthopedic Surgery Past Anesthesia/Blood Transfusion Reactions: No Reported Reaction Past Psychological History: No Psychological Hx Reported, Depression Smoking Status: Never smoker Past Alcohol Use History: None Reported Past Drug Use History: None Reported Medications and Allergies Home Medications Medication Instructions Recorded Confirmed Type Artificial Tears-Hypromellose 1 drops BOTH EYES TID PRN 01/17/22 09/07/22 History [Artificial Tear Drops] Cholecalciferol [Vitamin D3 (25 25 mcg PO DAILY 01/17/22 09/07/22 History Mcg = 1000 Iu)] Latanoprost/Pf [Latanoprost 0.005% 1 drop LEFT EYE HS 01/17/22 09/07/22 History Eye Drop] Omeprazole 20 mg PO HS 01/17/22 09/07/22 History PARoxetine [Paxil] 10 mg PO HS 01/17/22 09/07/22 History Potassium Chloride ER [K-Dur 20] 20 meq PO BID 01/17/22 09/07/22 History Primidone [Mysoline] 50 mg PO HS 01/17/22 09/07/22 History Sennosides [Senokot] 8.6 mg PO HS 01/17/22 09/07/22 History Sennosides [Senokot] 17.2 mg PO DAILY 01/17/22 09/07/22 History Tamsulosin [Flomax] 0.4 mg PO HS 01/17/22 09/07/22 History polyethylene glycoL 3350 [Miralax] 17 gm PO DAILY 01/17/22 09/07/22 History Metoprolol Tartrate [Lopressor] 25 mg PO BID #0 01/19/22 09/07/22 Rx Atorvastatin [Lipitor] 40 mg PO HS 03/01/22 09/07/22 History Nitroglycerin Sl Tabs [Nitrostat] 0.4 mg SL Q5M PRN 03/01/22 09/07/22 History Apixaban [Eliquis] 5 mg PO BID 08/04/22 09/07/22 History Baclofen 5 mg PO DAILY PRN 08/04/22 09/07/22 History Gabapentin [Neurontin] 400 mg PO TID@0700,1300,1900 08/04/22 09/07/22 History Multivitamins, Thera [Multivitamin 1 tab PO DAILY 08/04/22 09/07/22 History (formulary)] Isosorbide Mononitrate ER [Imdur] 30 mg PO DAILY #30 tab 08/12/22 09/07/22 Rx Acetaminophen Tab [Tylenol Tab] 1,000 mg PO BID PRN 09/07/22 09/07/22 History Docusate [Colace] 100 mg PO BID 09/07/22 09/07/22 History HYDROcodone/APAP 5-325MG [[place] 1 tab PO Q6H 09/07/22 09/07/22 History 5-325] Ranolazine [Ranexa] 500 mg PO BID 09/07/22 09/07/22 History glipiZIDE XL [Glucotrol Xl] 5 mg PO DAILY@1400 09/07/22 09/07/22 History glipiZIDE XL [Glucotrol Xl] 10 mg PO DAILY@0600 09/07/22 09/07/22 History Allergies Allergy/AdvReac Type Severity Reaction Status Date / Time No Known Allergies Allergy Verified 09/07/22 16:05 Surgical - Exam Vital Signs Temp Pulse Resp BP Pulse Ox 102.3 F H 130 H 20 126/73 96 09/07/22 14:51 09/07/22 14:51 09/07/22 14:51 09/07/22 14:51 09/07/22 14:51 Results - Labs 09/08/22 03:28 09/08/22 03:28 Abnormal Lab Results - Last 24 Hours (Table) 09/07/22 09/07/22 09/07/22 Range/Units 15:11 15:11 15:11 WBC 11.6 H (3.8-10.6) k/uL RBC (4.30-5.90) m/uL Hgb (13.0-17.5) gm/dL Hct (39.0-53.0) % Plt Count 141 L (150-450) k/uL Neutrophils # 10.2 H (1.3-7.7) k/uL Lymphocytes # 0.6 L (1.0-4.8) k/uL Sodium 131 L (137-145) mmol/L Chloride 92 L (98-107) mmol/L BUN 26 H (9-20) mg/dL Creatinine 1.51 H (0.66-1.25) mg/dL Glucose 66 L (74-99) mg/dL POC Glucose (mg/dL) (70-110) mg/dL Plasma Lactic Acid Bertram (0.7-2.0) mmol/L Calcium (8.4-10.2) mg/dL ALT 58 H (4-49) U/L Alkaline Phosphatase 161 H (38-126) U/L Albumin 3.2 L (3.5-5.0) g/dL Urine Protein 2+ H (Negative) Urine Bacteria Rare H (None) /hpf Urine Mucus Rare H (None) /hpf 09/07/22 09/08/22 09/08/22 Range/Units 15:11 03:28 03:28 WBC 16.3 H (3.8-10.6) k/uL RBC 3.75 L (4.30-5.90) m/uL Hgb 11.6 L (13.0-17.5) gm/dL Hct 34.8 L (39.0-53.0) % Plt Count (150-450) k/uL Neutrophils # 14.4 H (1.3-7.7) k/uL Lymphocytes # (1.0-4.8) k/uL Sodium 130 L (137-145) mmol/L Chloride 95 L (98-107) mmol/L BUN 25 H (9-20) mg/dL Creatinine 1.57 H (0.66-1.25) mg/dL Glucose 49 L* (74-99) mg/dL POC Glucose (mg/dL) (70-110) mg/dL Plasma Lactic Acid Bertram 2.8 H* (0.7-2.0) mmol/L Calcium 8.1 L (8.4-10.2) mg/dL ALT 50 H (4-49) U/L Alkaline Phosphatase 153 H (38-126) U/L Albumin 2.8 L (3.5-5.0) g/dL Urine Protein (Negative) Urine Bacteria (None) /hpf Urine Mucus (None) /hpf 09/08/22 09/08/22 09/08/22 Range/Units 05:10 08:18 08:19 WBC (3.8-10.6) k/uL RBC (4.30-5.90) m/uL Hgb (13.0-17.5) gm/dL Hct (39.0-53.0) % Plt Count (150-450) k/uL Neutrophils # (1.3-7.7) k/uL Lymphocytes # (1.0-4.8) k/uL Sodium (137-145) mmol/L Chloride (98-107) mmol/L BUN (9-20) mg/dL Creatinine (0.66-1.25) mg/dL Glucose (74-99) mg/dL POC Glucose (mg/dL) 63 L 49 L 51 L (70-110) mg/dL Plasma Lactic Acid [place] (0.7-2.0) mmol/L Calcium (8.4-10.2) mg/dL ALT (4-49) U/L Alkaline Phosphatase (38-126) U/L Albumin (3.5-5.0) g/dL Urine Protein (Negative) Urine Bacteria (None) /hpf Urine Mucus (None) /hpf 09/08/22 09/08/22 Range/Units 08:37 08:38 WBC (3.8-10.6) k/uL RBC (4.30-5.90) m/uL Hgb (13.0-17.5) gm/dL Hct (39.0-53.0) % Plt Count (150-450) k/uL Neutrophils # (1.3-7.7) k/uL Lymphocytes # (1.0-4.8) k/uL Sodium (137-145) mmol/L Chloride (98-107) mmol/L BUN (9-20) mg/dL Creatinine (0.66-1.25) mg/dL Glucose (74-99) mg/dL POC Glucose (mg/dL) 50 L 62 L (70-110) mg/dL Plasma Lactic Acid [place] (0.7-2.0) mmol/L Calcium (8.4-10.2) mg/dL ALT (4-49) U/L Alkaline Phosphatase (38-126) U/L Albumin (3.5-5.0) g/dL Urine Protein (Negative) Urine Bacteria (None) /hpf Urine Mucus (None) /hpf Diabetes panel 09/07/22 09/08/22 Range/Units 15:11 03:28 Sodium 131 L 130 L (137-145) mmol/L Potassium 5.0 4.6 (3.5-5.1) mmol/L Chloride 92 L 95 L (98-107) mmol/L Carbon Dioxide 28 27 (22-30) mmol/L BUN 26 H 25 H (9-20) mg/dL Creatinine 1.51 H 1.57 H (0.66-1.25) mg/dL Glucose 66 L 49 L* (74-99) mg/dL Calcium 8.4 8.1 L (8.4-10.2) mg/dL AST 59 45 (17-59) U/L ALT 58 H 50 H (4-49) U/L Alkaline Phosphatase 161 H 153 H (38-126) U/L Total Protein 7.8 7.0 (6.3-8.2) g/dL Albumin 3.2 L 2.8 L (3.5-5.0) g/dL Calcium panel 09/07/22 09/08/22 Range/Units 15:11 03:28 Calcium 8.4 8.1 L (8.4-10.2) mg/dL Albumin 3.2 L 2.8 L (3.5-5.0) g/dL Pituitary panel 09/07/22 09/08/22 Range/Units 15:11 03:28 Sodium 131 L 130 L (137-145) mmol/L Potassium 5.0 4.6 (3.5-5.1) mmol/L Chloride 92 L 95 L (98-107) mmol/L Carbon Dioxide 28 27 (22-30) mmol/L BUN 26 H 25 H (9-20) mg/dL Creatinine 1.51 H 1.57 H (0.66-1.25) mg/dL Glucose 66 L 49 L* (74-99) mg/dL Calcium 8.4 8.1 L (8.4-10.2) mg/dL Adrenal panel 09/07/22 09/08/22 Range/Units 15:11 03:28 Sodium 131 L 130 L (137-145) mmol/L Potassium 5.0 4.6 (3.5-5.1) mmol/L Chloride 92 L 95 L (98-107) mmol/L Carbon Dioxide 28 27 (22-30) mmol/L BUN 26 H 25 H (9-20) mg/dL Creatinine 1.51 H 1.57 H (0.66-1.25) mg/dL Glucose 66 L 49 L* (74-99) mg/dL Calcium 8.4 8.1 L (8.4-10.2) mg/dL Total Bilirubin 0.8 0.8 (0.2-1.3) mg/dL AST 59 45 (17-59) U/L ALT 58 H 50 H (4-49) U/L Alkaline Phosphatase 161 H 153 H (38-126) U/L Total Protein 7.8 7.0 (6.3-8.2) g/dL Albumin 3.2 L 2.8 L (3.5-5.0) g/dL
--- NOTE | 2022-09-08 14:42 | P.PN ---
Subjective Progress Note Date: 09/08/22 Hospital Course: 76-year-old male with history of prior stroke with right-sided deficit, wheelchair-bound, atrial fibrillation on Eliquis, diabetes, hypertension presenting with sepsis secondary to pneumonia, A. fib RVR. He is also encephalopathic initially on presentation, and found to have unstageable ulcer over the coccyx. On presentation, patient was febrile and tachycardic. Lab work showed leukocytosis, mild hyponatremia, acute kidney injury with creatinine 1.51. Patient admitted for further management. Cardiology and general surgery was consulted. Subjective: Patient seen and examined at bedside. He claims that he feels extremely weak and achy. He denies any significant shortness of breath. Pertinent positives and negatives as discussed above, a complete review of systems was performed and all other systems are negative. Vitals Signs Reviewed. General: nontoxic, no distress, appears at stated age Derm: warm, dry, sacral wound not observed, postsurgical incisions on her abdomen shows no erythema or drainage Head: atraumatic, normocephalic, symmetric Eyes: EOMI, no lid lag, anicteric sclera Mouth: no lip lesion, mucus membranes moist Cardiovascular: S1S2 reg, no murmur Lungs: CTA bilateral, no rhonchi, no rales , no accessory muscle use, supplement al oxygen Abdominal: soft, nontender to palpation, no guarding, no appreciable organomegaly Ext: no gross muscle atrophy, no edema, no contractures Neuro: CN II-XI grossly intact, right-sided weakness, chronic Psych: Alert, oriented, appropriate affect Data Reviewed Today: Pertinent Labs: WBC 16.3, hemoglobin 11.6, platelet 151, sodium 1:30, creatinine 1.57, Chandler S 71 Lower extremity venous Doppler does not show any evidence of DVT Assessment and Plan: Patient is currently critically ill, septic, requiring IV antibiotics. Prognosis guarded Active: Sepsis secondary to pneumonia versus sacral decubitus ulcer present on admission Atrial fibrillation with RVR Acute septic encephalopathy Hypoglycemia Acute kidney injury Mild hyponatremia Normocytic anemia -Patient currently on Zosyn 3.375 g IV every 8 hours, azithromycin 500 mg IV daily -Also on vancomycin, continue monitor renal function with daily BMP due to risk of renal toxicity especially in the setting of kidney injury -Blood cultures pending -Cardiology note reviewed, Cardizem drip discontinued, patient started on metop rolol 50 mg twice a day, anticoagulation on hold -Echocardiogram pending -Surgery note reviewed: No surgical interventions planned, wound care consulted, can resume Eliquis -Mental Status is improved -Hypoglycemia possibly in the setting of home medications and renal dysfunction, continue to monitor -Continue to monitor urine output and renal function with BMP -Hyponatremia possibly hypovolemic versus euvolemic, currently not on any IV fluids -No active signs of bleeding, repeat CBC tomorrow Chronic: History of stroke with right-sided deficits, wheelchair-bound Hypertension Tremors Depression DVT ppx: Eliquis Code status: Full code Anticipated discharge place: Pending clinical course Anticipated discharge time: Pending clinical course Objective - Vital Signs Vital signs: Vital Signs Temp 99.0 F 09/08/22 08:45 Pulse 106 H 09/08/22 08:45 Resp 16 09/08/22 08:45 BP 124/62 09/08/22 08:45 Pulse Ox 97 09/08/22 08:45 FiO2 Intake & Output 09/07/22 09/08/22 09/08/22 18:59 06:59 18:59 Intake Total 600 Balance 600 Weight 95.254 kg 95.254 kg Intake: Oral 600 Other: Voiding Method Diaper # Voids 1 # Bowel Movements 1 - Labs CBC & Chem 7: 09/08/22 03:28 09/08/22 03:28 Labs: Abnormal Lab Results - Last 24 Hours (Table) 09/07/22 09/07/22 09/07/22 Range/Units 15:11 15:11 15:11 WBC 11.6 H (3.8-10.6) k/uL RBC (4.30-5.90) m/uL Hgb (13.0-17.5) gm/dL Hct (39.0-53.0) % Plt Count 141 L (150-450) k/uL Neutrophils # 10.2 H (1.3-7.7) k/uL Lymphocytes # 0.6 L (1.0-4.8) k/uL Sodium 131 L (137-145) mmol/L Chloride 92 L (98-107) mmol/L BUN 26 H (9-20) mg/dL Creatinine 1.51 H (0.66-1.25) mg/dL Glucose 66 L (74-99) mg/dL POC Glucose (mg/dL) (70-110) mg/dL Plasma Lactic Acid Bertram (0.7-2.0) mmol/L Calcium (8.4-10.2) mg/dL ALT 58 H (4-49) U/L Alkaline Phosphatase 161 H (38-126) U/L Albumin 3.2 L (3.5-5.0) g/dL Urine Protein 2+ H (Negative) Urine Bacteria Rare H (None) /hpf Urine Mucus Rare H (None) /hpf 09/07/22 09/08/22 09/08/22 Range/Units 15:11 03:28 03:28 WBC 16.3 H (3.8-10.6) k/uL RBC 3.75 L (4.30-5.90) m/uL Hgb 11.6 L (13.0-17.5) gm/dL Hct 34.8 L (39.0-53.0) % Plt Count (150-450) k/uL Neutrophils # 14.4 H (1.3-7.7) k/uL Lymphocytes # (1.0-4.8) k/uL Sodium 130 L (137-145) mmol/L Chloride 95 L (98-107) mmol/L BUN 25 H (9-20) mg/dL Creatinine 1.57 H (0.66-1.25) mg/dL Glucose 49 L* (74-99) mg/dL POC Glucose (mg/dL) (70-110) mg/dL Plasma Lactic Acid Bertram 2.8 H* (0.7-2.0) mmol/L Calcium 8.1 L (8.4-10.2) mg/dL ALT 50 H (4-49) U/L Alkaline Phosphatase 153 H (38-126) U/L Albumin 2.8 L (3.5-5.0) g/dL Urine Protein (Negative) Urine Bacteria (None) /hpf Urine Mucus (None) /hpf 09/08/22 09/08/22 09/08/22 Range/Units 05:10 08:18 08:19 WBC (3.8-10.6) k/uL RBC (4.30-5.90) m/uL Hgb (13.0-17.5) gm/dL Hct (39.0-53.0) % Plt Count (150-450) k/uL Neutrophils # (1.3-7.7) k/uL Lymphocytes # (1.0-4.8) k/uL Sodium (137-145) mmol/L Chloride (98-107) mmol/L BUN (9-20) mg/dL Creatinine (0.66-1.25) mg/dL Glucose (74-99) mg/dL POC Glucose (mg/dL) 63 L 49 L 51 L (70-110) mg/dL Plasma Lactic Acid Bertram (0.7-2.0) mmol/L Calcium (8.4-10.2) mg/dL ALT (4-49) U/L Alkaline Phosphatase (38-126) U/L Albumin (3.5-5.0) g/dL Urine Protein (Negative) Urine Bacteria (None) /hpf Urine Mucus (None) /hpf 09/08/22 09/08/22 09/08/22 Range/Units 08:37 08:38 11:37 WBC (3.8-10.6) k/uL RBC (4.30-5.90) m/uL Hgb (13.0-17.5) gm/dL Hct (39.0-53.0) % Plt Count (150-450) k/uL Neutrophils # (1.3-7.7) k/uL Lymphocytes # (1.0-4.8) k/uL Sodium (137-145) mmol/L Chloride (98-107) mmol/L BUN (9-20) mg/dL Creatinine (0.66-1.25) mg/dL Glucose (74-99) mg/dL POC Glucose (mg/dL) 50 L 62 L 63 L (70-110) mg/dL Plasma Lactic Acid Bertram (0.7-2.0) mmol/L Calcium (8.4-10.2) mg/dL ALT (4-49) U/L Alkaline Phosphatase (38-126) U/L Albumin (3.5-5.0) g/dL Urine Protein (Negative) Urine Bacteria (None) /hpf Urine Mucus (None) /hpf 09/08/22 09/08/22 09/08/22 Range/Units 11:38 12:05 14:09 WBC (3.8-10.6) k/uL RBC (4.30-5.90) m/uL Hgb (13.0-17.5) gm/dL Hct (39.0-53.0) % Plt Count (150-450) k/uL Neutrophils # (1.3-7.7) k/uL Lymphocytes # (1.0-4.8) k/uL Sodium (137-145) mmol/L Chloride (98-107) mmol/L BUN (9-20) mg/dL Creatinine (0.66-1.25) mg/dL Glucose (74-99) mg/dL POC Glucose (mg/dL) 66 L 67 L 53 L (70-110) mg/dL Plasma Lactic Acid Bertram (0.7-2.0) mmol/L Calcium (8.4-10.2) mg/dL ALT (4-49) U/L Alkaline Phosphatase (38-126) U/L Albumin (3.5-5.0) g/dL Urine Protein (Negative) Urine Bacteria (None) /hpf Urine Mucus (None) /hpf
[2022-09-08 14:45] LABS: Glucose,Whole Blood 139 mg/dL (70-110)
[2022-09-08 16:54] LABS: Glucose,Whole Blood 65 mg/dL (70-110)
[2022-09-08 17:10] LABS: Glucose,Whole Blood 60 mg/dL (70-110)
[2022-09-08 17:10] LABS: Glucose,Whole Blood 67 mg/dL (70-110)
[2022-09-08 17:45] LABS: Glucose,Whole Blood 69 mg/dL (70-110)
[2022-09-08 18:10] LABS: Glucose,Whole Blood 97 mg/dL (70-110)
[2022-09-08 19:05] LABS: Glucose,Whole Blood 78 mg/dL (70-110)
[2022-09-08 20:07] LABS: Glucose,Whole Blood 104 mg/dL (70-110)
[2022-09-08] MEDS: AZITHROMYCIN 500 MG in SODIUM CHLORIDE 0.9% 250 ML IVPB SCH (21:25)
[2022-09-08] MEDS: SENNOSIDES 8.6 MG TAB PO SCH (21:26)
[2022-09-08] MEDS: DOCUSATE 100 MG CAP PO SCH (21:26)
[2022-09-08] MEDS: TAMSULOSIN 0.4 MG CAP.ER.24H PO SCH (21:26)
[2022-09-08] MEDS: ATORVASTATIN 40 MG TAB PO SCH (21:26)
[2022-09-08] MEDS: PANTOPRAZOLE 40 MG TABLET PO SCH (21:26)
[2022-09-08] MEDS: PRIMIDONE 50 MG TAB PO SCH (21:26)
[2022-09-08] MEDS: MELATONIN 5 MG TABLET PO SCH (21:26)
[2022-09-08] MEDS: POTASSIUM CHLORIDE ER 20 MEQ TAB.ER PO SCH (21:26)
[2022-09-08] MEDS: APIXABAN 5 MG TAB PO SCH (21:27)
[2022-09-08] MEDS: PARoxetine 10 MG TAB PO SCH (21:27)
[2022-09-08] MEDS: LATANOPROST 0.005% OPHTH DROPS 2.5 ML BTL LEFT EYE SCH (21:30)
[2022-09-09 00:05] LABS: Glucose,Whole Blood 67 mg/dL (70-110)
[2022-09-09 00:20] LABS: Glucose,Whole Blood 77 mg/dL (70-110)
[2022-09-09 01:04] LABS: Glucose,Whole Blood 75 mg/dL (70-110)
[2022-09-09 02:00] LABS: Glucose,Whole Blood 87 mg/dL (70-110)
[2022-09-09] MEDS: DEXTROSE 10% IN WATER 1,000 ML with SODIUM CHLORIDE 4MEQ/ML VIAL 153.8 MEQ IV SCH ×3 (02:03→23:13)
[2022-09-09 03:04] LABS: Glucose,Whole Blood 99 mg/dL (70-110)
[2022-09-09] MEDS: PIPERACILLIN-TAZOBACTAM 3.375 GM in SODIUM CHLORIDE 0.9% 100 ML IVPB SCH ×3 (03:49→18:55)
[2022-09-09] MEDS: HYDROcodone/APAP 5-325MG 1 EACH TAB PO SCH ×4 (03:49→20:40)
[2022-09-09 04:09] LABS: Glucose,Whole Blood 107 mg/dL (70-110)
[2022-09-09 05:12] LABS: Glucose,Whole Blood 116 mg/dL (70-110)
[2022-09-09] MEDS: GABAPENTIN 400 MG CAP PO SCH ×3 (06:11→18:55)
[2022-09-09 06:19] LABS: Glucose,Whole Blood 98 mg/dL (70-110)
[2022-09-09] MEDS: INSULIN ASPART (NovoLOG) 100 UNIT/ML VIAL SQ SCH ×4 (06:27→20:43)
[2022-09-09 07:17] LABS: Glucose,Whole Blood 89 mg/dL (70-110)
[2022-09-09 08:03] LABS: Glucose,Whole Blood 85 mg/dL (70-110)
[2022-09-09] MEDS: ISOSORBIDE MONONITRATE ER 30 MG TAB.ER.24H PO SCH (08:53)
[2022-09-09] MEDS: CHOLECALCIFEROL 25 MCG (1000 IU) TABLET PO SCH (08:53)
[2022-09-09] MEDS: APIXABAN 5 MG TAB PO SCH ×2 (08:53→20:39)
[2022-09-09] MEDS: RANOLAZINE 500 MG TAB.ER.12H PO SCH ×2 (08:53→21:05)
[2022-09-09] MEDS: DOCUSATE 100 MG CAP PO SCH ×2 (08:53→20:43)
[2022-09-09] MEDS: MULTIVITAMINS, THERA 1 EACH TAB PO SCH (08:53)
[2022-09-09] MEDS: POTASSIUM CHLORIDE ER 20 MEQ TAB.ER PO SCH ×2 (08:54→21:05)
[2022-09-09] MEDS: METOPROLOL TARTRATE 50 MG TAB PO SCH ×2 (08:54→20:40)
[2022-09-09] MEDS: polyethylene glycoL 3350 17 GM POWD.PACK PO SCH (08:56)
[2022-09-09 09:15] LABS: Glucose,Whole Blood 79 mg/dL (70-110)
[2022-09-09 10:04] LABS: Glucose,Whole Blood 88 mg/dL (70-110)
[2022-09-09 11:03] LABS: Glucose,Whole Blood 73 mg/dL (70-110)
--- NOTE | 2022-09-09 11:31 | P.CONS ---
History of Present Illness - Reason for Consult Consult date: 09/09/22 wound care - History of Present Illness This is a 76-year-old gentleman who was seen last month for nonhealing ulcerations to the bilateral lower extremities. At this time he is being seen for a stage III pressure ulcer to sacrum. Patient was consult ordered by surgery who has declined any surgical interventions at this time. Patient has a significant with minimal granulation and significant amount of slough and nonvi able tissue present the ulceration measures approximately 12 x 15 x 0.5 cm. Ulceration shows fascia and muscle involvement. Excoriation and maceration noted superior wound. Patient states that the ulceration has been there for approximately 1 month he is a resident at [facility] where they have been treating that. Patient does not know the treatment that he has been on. Review Of Systems: Constitutional: No fever, no chills, no night sweats. No weight change. No weakness, fatigue or lethargy. No daytime sleepiness. Integumentary:reports wounds, no lesions. No rash or pruritus. No unusual bruising. No change in hair or nails. Physical exam: General Appearance: Alert, cooperative, no distress, appears stated age. Skin: See HPI all other Skin color, texture, tugor normal, no rashes or lesions. Neurologic: Alert oriented x3 Assessment: 1. Stage III pressure ulcer sacrum Plan: 1. Apply honey alginate to the ulceration saline moistened gauze, dry gauze, sacral border foam. Change Tuesday. Patient would benefit from weekly debridements. We will be happy to see him in the wound care center upon discharge. Thank you for the consultation any questions was contact the wound care center. DNP note has been reviewed and discussed with Dr. Jean and the impression and plan of care has been directed as dictated. Past Medical History Past Medical History: Chest Pain / Angina, CVA/TIA, Hyperlipidemia History of Any Multi-Drug Resistant Organisms: None Reported Past Surgical History: Appendectomy, Orthopedic Surgery Past Anesthesia/Blood Transfusion Reactions: No Reported Reaction Past Psychological History: No Psychological Hx Reported, Depression Smoking Status: Never smoker Past Alcohol Use History: None Reported Past Drug Use History: None Reported Medications and Allergies Home Medications Medication Instructions Recorded Confirmed Type Artificial Tears-Hypromellose 1 drops BOTH EYES TID PRN 01/17/22 09/07/22 History [Artificial Tear Drops] Cholecalciferol [Vitamin D3 (25 25 mcg PO DAILY 01/17/22 09/07/22 History Mcg = 1000 Iu)] Latanoprost/Pf [Latanoprost 0.005% 1 drop LEFT EYE HS 01/17/22 09/07/22 History Eye Drop] Omeprazole 20 mg PO HS 01/17/22 09/07/22 History PARoxetine [Paxil] 10 mg PO HS 01/17/22 09/07/22 History Potassium Chloride ER [K-Dur 20] 20 meq PO BID 01/17/22 09/07/22 History Primidone [Mysoline] 50 mg PO HS 01/17/22 09/07/22 History Sennosides [Senokot] 8.6 mg PO HS 01/17/22 09/07/22 History Sennosides [Senokot] 17.2 mg PO DAILY 01/17/22 09/07/22 History Tamsulosin [Flomax] 0.4 mg PO HS 01/17/22 09/07/22 History polyethylene glycoL 3350 [Miralax] 17 gm PO DAILY 01/17/22 09/07/22 History Metoprolol Tartrate [Lopressor] 25 mg PO BID #0 01/19/22 09/07/22 Rx Atorvastatin [Lipitor] 40 mg PO HS 03/01/22 09/07/22 History Nitroglycerin Sl Tabs [Nitrostat] 0.4 mg SL Q5M PRN 03/01/22 09/07/22 History Apixaban [Eliquis] 5 mg PO BID 08/04/22 09/07/22 History Baclofen 5 mg PO DAILY PRN 08/04/22 09/07/22 History Gabapentin [Neurontin] 400 mg PO TID@0700,1300,1900 08/04/22 09/07/22 History Multivitamins, Thera [Multivitamin 1 tab PO DAILY 08/04/22 09/07/22 History (formulary)] Isosorbide Mononitrate ER [Imdur] 30 mg PO DAILY #30 tab 08/12/22 09/07/22 Rx Acetaminophen Tab [Tylenol Tab] 1,000 mg PO BID PRN 09/07/22 09/07/22 History Docusate [Colace] 100 mg PO BID 09/07/22 09/07/22 History HYDROcodone/APAP 5-325MG [[place] 1 tab PO Q6H 09/07/22 09/07/22 History 5-325] Ranolazine [Ranexa] 500 mg PO BID 09/07/22 09/07/22 History glipiZIDE XL [Glucotrol Xl] 5 mg PO DAILY@1400 09/07/22 09/07/22 History glipiZIDE XL [Glucotrol Xl] 10 mg PO DAILY@0600 09/07/22 09/07/22 History Allergies Allergy/AdvReac Type Severity Reaction Status Date / Time No Known Allergies Allergy Verified 09/07/22 16:05 Physical Exam Vitals: Vital Signs Temp Pulse Resp BP Pulse Ox 09/09/22 08:00 97.7 F 89 20 111/68 99 09/09/22 07:57 98 09/09/22 03:50 84 17 116/57 97 09/08/22 23:20 80 18 97/60 99 09/08/22 21:05 98 F 89 17 120/70 94 L 09/08/22 16:50 96.1 F L 75 16 113/61 99 Intake and Output 09/08/22 09/09/22 09/09/22 22:59 06:59 14:59 Intake Total 540 200 Output Total 850 Balance 540 -850 200 Intake: Oral 540 200 Output: Urine 850 Other: Voiding Method Diaper Diaper Diaper External Catheter # Bowel Movements 1 Weight 128 kg Results CBC & Chem 7: 09/08/22 03:28 09/08/22 03:28 Labs: Abnormal Lab Results - Last 24 Hours (Table) 09/08/22 09/08/22 09/08/22 Range/Units 11:37 11:38 12:05 POC Glucose (mg/dL) 63 L 66 L 67 L (70-110) mg/dL 09/08/22 09/08/22 09/08/22 Range/Units 14:09 14:41 16:52 POC Glucose (mg/dL) 53 L 139 H 65 L (70-110) mg/dL 09/08/22 09/08/22 09/08/22 Range/Units 17:07 17:08 17:42 POC Glucose (mg/dL) 60 L 67 L 69 L (70-110) mg/dL 09/09/22 09/09/22 Range/Units 00:04 05:10 POC Glucose (mg/dL) 67 L 116 H (70-110) mg/dL Microbiology - Last 24 Hours (Table) 09/07/22 15:11 Blood Culture - Preliminary Blood No Growth after 24 hours 09/07/22 15:11 Blood Culture - Preliminary Blood No Growth after 24 hours Assessment and Plan (1) Pressure ulcer of sacral region, stage 3 Current Visit: Yes Status: Acute Code(s): L89.153 - PRESSURE ULCER OF SACRAL REGION, STAGE 3 SNOMED Code(s): 83493027510801
[2022-09-09 11:33] LABS: Basophils % (A) 0 %; Eosinophils # (A) 0.1 k/uL (0-0.7); Eosinophils % (A) 1 %; HCT 30.8 % (39.0-53.0); HGB 10.1 gm/dL (13.0-17.5); Lymphocytes # (A) 0.8 k/uL (1.0-4.8); Lymphocytes % (A) 5 %; MCHC 32.8 g/dL (31.0-37.0); MCV 94.5 fL (80.0-100.0); Mean Platelet Volume 10.9; Monocytes # (A) 0.6 k/uL (0-1.0); Monocytes % (A) 4 %; Neutrophils # (A) 13.4 k/uL (1.3-7.7); Neutrophils % (A) 89 %; Platelet Count 159 k/uL (150-450); RBC 3.25 m/uL (4.30-5.90); RDW 14.8 % (11.5-15.5)
--- NOTE | 2022-09-09 11:33 | P.PN ---
Subjective Progress Note Date: 09/09/22 HISTORY OF PRESENT ILLNESS: This is a 76-year-old male with a past medical history significant for permanent atrial fibrillation, hypertension, hyperlipidemia, diabetes and chronic kidney disease. Patient follows in the office with Dr. Quinonez. We have been asked to see the patient in consultation for afib with RVR. Patient examined at the bedside. Patient presented to the emergency room with a chief complaint of shortness of breath. He is being treated for left sided pneumonia. Patient was found to be in A. fib with RVR. Patient was started on IV Cardizem. Patient remains on IV Cardizem this morning at 5 mg an hour. Telemetry reveals atrial fibrillation with a heart rate in the 80s. Patient denies any chest pain or pressure. * EKG reveals atrial fibrillation with RVR * Chest xray left basilar airspace opacities correlate for pneumonia * Laboratory data: WBC 16.3. Hemoglobin 11.6. Platelet count 151. Sodium 130. Potassium 4.6. BUN 25. Creatinine 1.57. * Current home cardiac medications include Lipitor 40 mg at night, Imdur 30 mg daily, metoprolol tartrate 25 mg twice a day, Ranexa 500 mg twice a day, and Eliquis 5 mg twice a day * Left lower extremity Doppler: Negative for DVT * Most recent echocardiogram obtained in January 2022 revealed ejection fraction 55-60%, mild MR, mild TR * Cardiac catheterization history: January 2022 revealed equivocal between an area of reversibility along the basilar inferior wall versus diaphragmatic attenuation. This finding not corroborated on polar maps. 09/09/2022 Patient examined this morning at the bedside. Patient denies chest pain or pressure. He denies shortness of breath. His been evaluated by general surgery with no plans for surgical debridement. His anticoagulation has been resumed. Telemetry reveals atrial fibrillation with controlled ventricular rate. Patient's vital signs are stable. PHYSICAL EXAM: VITAL SIGNS: Reviewed. GENERAL: Well-developed in no acute distress. HEENT: Head is normocephalic. Pupils are equal, round. Sclerae anicteric. Mucous membranes of the mouth are moist. Neck supple. No JVD or thyromegaly LUNGS: Respirations even and unlabored. Lungs coarse to auscultation bilaterally. HEART: Irregular rate and rhythm. S1 and S2 heard. Systolic murmur noted ABDOMEN: Soft. Nondistended. Nontender. EXTREMITIES: Normal range of motion. No clubbing or cyanosis. Peripheral pulses intact. Trace lower extremity edema. Right-sided flaccid secondary to previous CVA NEUROLOGIC: Awake and alert. Oriented x 3. ASSESSMENT: Left-sided pneumonia Permanent atrial fibrillation with RVR, currently rate controlled History of CVA with residual right-sided paralysis, patient bedbound Chronic kidney disease Hypertension Hyperlipidemia Diabetes Sacral decubitus ulcer PLAN: 2D echo is pending Continue current cardiac medications Continue telemetry monitoring Continue anticoagulation with Eliquis Patient is stable from a cardiac standpoint Further recommendations pending patient's course Nurse practitioner note has been reviewed by physician. Signing provider agrees with the documented findings, assessment, and plan of care. Objective - Vital Signs Vital signs: Vital Signs Temp 97.7 F 09/09/22 08:00 Pulse 89 09/09/22 08:00 Resp 20 09/09/22 08:00 BP 111/68 09/09/22 08:00 Pulse Ox 99 09/09/22 08:00 FiO2 Intake & Output 09/08/22 09/09/22 09/09/22 18:59 06:59 18:59 Intake Total 1680 200 Output Total 850 Balance 1680 -850 200 Weight 128 kg Intake: Oral 1680 200 Output: Urine 850 Other: Voiding Method Diaper Diaper Diaper External Catheter # Voids 1 # Bowel Movements 1 1 - Labs CBC & Chem 7: 09/08/22 03:28 09/08/22 03:28 Labs: Abnormal Lab Results - Last 24 Hours (Table) 09/08/22 09/08/22 09/08/22 Range/Units 11:37 11:38 12:05 POC Glucose (mg/dL) 63 L 66 L 67 L (70-110) mg/dL 09/08/22 09/08/22 09/08/22 Range/Units 14:09 14:41 16:52 POC Glucose (mg/dL) 53 L 139 H 65 L (70-110) mg/dL 09/08/22 09/08/22 09/08/22 Range/Units 17:07 17:08 17:42 POC Glucose (mg/dL) 60 L 67 L 69 L (70-110) mg/dL 09/09/22 09/09/22 Range/Units 00:04 05:10 POC Glucose (mg/dL) 67 L 116 H (70-110) mg/dL Microbiology - Last 24 Hours (Table) 09/07/22 15:11 Blood Culture - Preliminary Blood No Growth after 24 hours 09/07/22 15:11 Blood Culture - Preliminary Blood No Growth after 24 hours
--- NOTE | 2022-09-09 11:36 | CA ---
Transthoracic Echo Report Name: Babar Altamirano Age: 76 Gender: M : 1945 Exam Date: 09/08/2022 12:50 Exam Location: [facility] Ht (in): 70 Wt (lb): 286 Ordering Physician: Sarah Duval Attending/Referring Phys: [id number], Mukund Feed Crusher Dameon Scherer RDCS Procedure CPT: Indications: LV function Cardiac Hx: Technical Quality: Technically difficult study Contrast 1: Lumason Total Dose (mL): 6 Contrast 2: Total Dose (mL): MEASUREMENTS (Male / Female) Normal Values 2D ECHO LV Diastolic Diameter PLAX 3.9 cm 4.2 - 5.9 / 3.9 - 5.3 cm LV Systolic Diameter PLAX 3.5 cm LV Fractional Shortening PLAX 9.9 % IVS Diastolic Thickness 1.2 cm 0.6 - 1.0 / 0.6 - 0.9 cm IVS Systolic Thickness 1.6 cm LVPW Diastolic Thickness 1.2 cm 0.6 - 1.0 / 0.6 - 0.9 cm LVPW Systolic Thickness 1.8 cm LV Relative Wall Thickness 0.6 LVOT Diameter 2.4 cm LA Systolic Diameter LX 4.9 cm 3.0 - 4.0 / 2.7 - 3.8 cm LV Diastolic Volume MOD BP 58.4 cm??? 67 - 155 / 56 - 104 cm??? LV Systolic Volume MOD BP 18.4 cm??? 22 - 58 / 19 - 49 cm??? LV Ejection Fraction MOD BP 68.4 % >= 55 % LV Stroke Volume MOD BP 39.9 cm??? LV Diastolic Volume MOD 4C 63.1 cm??? LV Systolic Volume MOD 4C 23.7 cm??? LV Ejection Fraction MOD 4C 62.4 % LV Stroke Volume MOD 4C 39.3 cm??? LV Diastolic Length 4C 7.5 cm LV Systolic Length 4C 5.9 cm LV Diastolic Volume MOD 2C 54.1 cm??? LV Systolic Volume MOD 2C 13.9 cm??? LV Ejection Fraction MOD 2C 74.3 % LV Stroke Volume MOD 2C 40.2 cm??? LV Diastolic Length 2C 7.5 cm LV Systolic Length 2C 5.6 cm Ascending Aorta Diameter 2.8 cm M-MODE Aortic Root Diameter MM 3.3 cm LA Systolic Diameter MM 4.5 cm LA Ao Ratio MM 1.4 MV E Point Septal Separation 2.5 cm AV Cusp Separation MM 1.8 cm DOPPLER AV Peak Velocity 90.4 cm/s AV Peak Gradient 3.3 mmHg MV Deceleration [place] 692.7 cm/s??? Mitral E Point Velocity 112.4 cm/s Mitral A Point Velocity 31.6 cm/s Mitral E to A Ratio 3.6 MV Deceleration Time 162.3 ms MV E' Velocity 6.8 cm/s Mitral E to MV E' Ratio 16.5 TR Peak Velocity 276.8 cm/s TR Peak Gradient 30.6 mmHg Right Ventricular Systolic Press 40.6 mmHg PV Peak Velocity 92.2 cm/s PV Peak Gradient 3.4 mmHg FINDINGS Left Ventricle Left ventricular ejection fraction is estimated at 55-60 %. Moderate concentric left ventricular hypertrophy. Grade 3 diastolic dysfunction. Normal systolic function. Right Ventricle Normal right ventricular size. RVSP- 41 mm Hg. Right Atrium Mild right atrial dilatation. Left Atrium Mild left atrial dilatation. Myxomatous IAS. Mitral Valve Mitral valve thickened. Trace mitral regurgitation. Aortic Valve Trileaflet aortic valve. Tricuspid Valve [id number] tricuspid regurgitation. Pulmonic Valve Pulmonic valve not well visualized. Pericardium Normal pericardium. No pericardial effusion. Aorta Normal size aortic root and proximal ascending aorta. CONCLUSIONS Technically difficult study. Echo contrast was used. Normal systolic function. Mild mitral and mild to moderate tricuspid regurgitation no pericardial effusion Previewed by: Dr. Liyah Cowan MD (Electronically Signed) Final Date: 09 September 2022 11:35
[2022-09-09 11:40] VITALS: BMI 40.4
[2022-09-09] MEDS: VANCOMYCIN 1,500 MG in SODIUM CHLORIDE 0.9% 500 ML 500 ML IVPB SCH (12:04)
[2022-09-09 12:05] LABS: Glucose,Whole Blood 69 mg/dL (70-110); Glucose,Whole Blood 79 mg/dL (70-110)
[2022-09-09 12:09] LABS: Calcium 7.6 mg/dL (8.4-10.2)
[2022-09-09 12:13] LABS: Potassium 5.1 mmol/L (3.5-5.1)
--- NOTE | 2022-09-09 12:28 | P.PN ---
Subjective Progress Note Date: 09/09/22 Hospital Course: 76-year-old male with history of prior stroke with right-sided deficit, wheelchair-bound, atrial fibrillation on Eliquis, diabetes, hypertension presenting with sepsis secondary to pneumonia, A. fib RVR. He is also encephalopathic initially on presentation, and found to have unstageable ulcer over the coccyx. On presentation, patient was febrile and tachycardic. Lab work showed leukocytosis, mild hyponatremia, acute kidney injury with creatinine 1.51. Patient admitted for further management. Cardiology and general surgery was consulted. Pertinent imaging: Lower extremity venous Doppler does not show any evidence of DVT Subjective: Patient seen and examined at bedside. He claims that he feels extremely weak and achy. He denies any significant shortness of breath. Pertinent positives and negatives as discussed above, a complete review of systems was performed and all other systems are negative. Vitals Signs Reviewed. General: nontoxic, no distress, appears at stated age Derm: warm, dry, sacral wound not observed, postsurgical incisions on her abdomen shows no erythema or drainage Head: atraumatic, normocephalic, symmetric Eyes: EOMI, no lid lag, anicteric sclera Mouth: no lip lesion, mucus membranes moist Cardiovascular: S1S2 reg, no murmur Lungs: CTA bilateral, no rhonchi, no rales , no accessory muscle use, supplemental oxygen Abdominal: soft, nontender to palpation, no guarding, no appreciable organomegaly Ext: no gross muscle atrophy, no edema, no contractures Neuro: CN II-XI grossly intact, right-sided weakness, chronic Psych: Alert, oriented, appropriate affect Data Reviewed Today: Pertinent Labs: WBC 15.0, hemoglobin 10.1, platelet 159, sodium 129, chloride 97, creatinine 1.14 Assessment and Plan: Patient is currently critically ill, septic, requiring IV antibiotics. Prognosis guarded Blood cultures no growth to date Active: Sepsis secondary to left-sided pneumonia versus sacral decubitus ulcer present on admission Permanent A. fib, rate controlled Hypoglycemia Acute kidney injury, resolving Mild hyponatremia Normocytic anemia -Pro calcitonin, ESR and CRP ordered -Patient currently on Zosyn 3.375 g IV every 8 hours, azithromycin 500 mg IV daily -Also on vancomycin, continue monitor renal function with daily BMP due to risk of renal toxicity especially in the setting of kidney injury -Blood cultures negative so far -Cardiology note reviewed, on metoprolol 50 mg twice a day, and Eliquis 5 mg twice a day -Echocardiogram report reviewed, shows normal systolic function, mild mitral regurgitation, and mild to moderate TR -Surgery following, No surgical interventions planned -Wound care was consulted, note reviewed, recommendations for stage III decubitus sacral ulcer -Hypoglycemia possibly in the setting of home medications and renal dysfunction, continue to monitor -Currently on D10 normal saline at 75 mL an hour -Continue to monitor urine output and renal function with BMP, , improving -Hyponatremia possibly hypovolemic versus euvolemic, remains stable -No active signs of bleeding, repeat CBC tomorrow Resolved: A. fib with RVR Acute septic encephalopathy Chronic: History of stroke with right-sided deficits, wheelchair-bound Hypertension Tremors Depression DVT ppx: Eliquis Code status: Full code Anticipated discharge place: Pending clinical course Anticipated discharge time: Pending clinical course Objective - Vital Signs Vital signs: Vital Signs Temp 97.7 F 09/09/22 11:30 Pulse 70 09/09/22 11:30 Resp 20 09/09/22 11:30 BP 116/68 09/09/22 11:30 Pulse Ox 97 09/09/22 11:30 FiO2 Intake & Output 09/08/22 09/09/22 09/09/22 18:59 06:59 18:59 Intake Total 1680 200 Output Total 850 Balance 1680 -850 200 Weight 128 kg 128 kg Intake: Oral 1680 200 Output: Urine 850 Other: Voiding Method Diaper Diaper Diaper External Catheter # Voids 1 # Bowel Movements 1 1 - Labs CBC & Chem 7: 09/09/22 09:51 09/09/22 09:51 Labs: Abnormal Lab Results - Last 24 Hours (Table) 09/08/22 09/08/22 09/08/22 Range/Units 14:09 14:41 16:52 WBC (3.8-10.6) k/uL RBC (4.30-5.90) m/uL Hgb (13.0-17.5) gm/dL Hct (39.0-53.0) % Neutrophils # (1.3-7.7) k/uL Lymphocytes # (1.0-4.8) k/uL Sodium (137-145) mmol/L Chloride (98-107) mmol/L BUN (9-20) mg/dL Glucose (74-99) mg/dL POC Glucose (mg/dL) 53 L 139 H 65 L (70-110) mg/dL Calcium (8.4-10.2) mg/dL 09/08/22 09/08/22 09/08/22 Range/Units 17:07 17:08 17:42 WBC (3.8-10.6) k/uL RBC (4.30-5.90) m/uL Hgb (13.0-17.5) gm/dL Hct (39.0-53.0) % Neutrophils # (1.3-7.7) k/uL Lymphocytes # (1.0-4.8) k/uL Sodium (137-145) mmol/L Chloride (98-107) mmol/L BUN (9-20) mg/dL Glucose (74-99) mg/dL POC Glucose (mg/dL) 60 L 67 L 69 L (70-110) mg/dL Calcium (8.4-10.2) mg/dL 09/09/22 09/09/22 09/09/22 Range/Units 00:04 05:10 09:51 WBC 15.0 H (3.8-10.6) k/uL RBC 3.25 L (4.30-5.90) m/uL Hgb 10.1 L (13.0-17.5) gm/dL Hct 30.8 L (39.0-53.0) % Neutrophils # 13.4 H (1.3-7.7) k/uL Lymphocytes # 0.8 L (1.0-4.8) k/uL Sodium (137-145) mmol/L Chloride (98-107) mmol/L BUN (9-20) mg/dL Glucose (74-99) mg/dL POC Glucose (mg/dL) 67 L 116 H (70-110) mg/dL Calcium (8.4-10.2) mg/dL 09/09/22 09/09/22 Range/Units 09:51 12:02 WBC (3.8-10.6) k/uL RBC (4.30-5.90) m/uL Hgb (13.0-17.5) gm/dL Hct (39.0-53.0) % Neutrophils # (1.3-7.7) k/uL Lymphocytes # (1.0-4.8) k/uL Sodium 129 L (137-145) mmol/L Chloride 97 L (98-107) mmol/L BUN 24 H (9-20) mg/dL Glucose 57 L (74-99) mg/dL POC Glucose (mg/dL) 69 L (70-110) mg/dL Calcium 7.6 L (8.4-10.2) mg/dL Microbiology - Last 24 Hours (Table) 09/07/22 15:11 Blood Culture - Preliminary Blood No Growth after 24 hours 09/07/22 15:11 Blood Culture - Preliminary Blood No Growth after 24 hours
--- NOTE | 2022-09-09 12:34 | P.PN ---
Progress Note - Text Progress Note Date: 09/09/22 The patient remains stable. His decubitus ulcer and scrotal wound are stable. There are no plans for surgical intervention. The patient will follow-up in the wound care clinic
[2022-09-09 13:05] LABS: Glucose,Whole Blood 67 mg/dL (70-110)
[2022-09-09 13:05] LABS: Glucose,Whole Blood 65 mg/dL (70-110)
[2022-09-09 13:23] LABS: Glucose,Whole Blood 73 mg/dL (70-110)
[2022-09-09 13:50] LABS: Glucose,Whole Blood 84 mg/dL (70-110)
[2022-09-09 14:10] LABS: Glucose,Whole Blood 98 mg/dL (70-110)
[2022-09-09 15:06] LABS: Glucose,Whole Blood 94 mg/dL (70-110)
[2022-09-09 16:20] LABS: Glucose,Whole Blood 92 mg/dL (70-110)
[2022-09-09 17:03] LABS: Glucose,Whole Blood 94 mg/dL (70-110)
[2022-09-09 18:05] LABS: Glucose,Whole Blood 116 mg/dL (70-110)
[2022-09-09 19:14] LABS: Glucose,Whole Blood 157 mg/dL (70-110)
[2022-09-09 20:06] LABS: Glucose,Whole Blood 154 mg/dL (70-110)
[2022-09-09] MEDS: AZITHROMYCIN 500 MG in SODIUM CHLORIDE 0.9% 250 ML IVPB SCH (20:39)
[2022-09-09] MEDS: ATORVASTATIN 40 MG TAB PO SCH (20:40)
[2022-09-09] MEDS: MELATONIN 5 MG TABLET PO SCH (20:43)
[2022-09-09] MEDS: PANTOPRAZOLE 40 MG TABLET PO SCH (20:43)
[2022-09-09] MEDS: LATANOPROST 0.005% OPHTH DROPS 2.5 ML BTL LEFT EYE SCH (20:48)
[2022-09-09] MEDS: PRIMIDONE 50 MG TAB PO SCH (21:05)
[2022-09-09] MEDS: PARoxetine 10 MG TAB PO SCH (21:05)
[2022-09-09] MEDS: TAMSULOSIN 0.4 MG CAP.ER.24H PO SCH (21:05)
[2022-09-09] MEDS: SENNOSIDES 8.6 MG TAB PO SCH (21:05)
[2022-09-09 21:08] LABS: Glucose,Whole Blood 144 mg/dL (70-110)
[2022-09-09 22:06] LABS: Glucose,Whole Blood 137 mg/dL (70-110)
[2022-09-10 03:20] LABS: Glucose,Whole Blood 83 mg/dL (70-110)
[2022-09-10] MEDS: PIPERACILLIN-TAZOBACTAM 3.375 GM in SODIUM CHLORIDE 0.9% 100 ML IVPB SCH ×3 (03:24→23:00)
[2022-09-10] MEDS: HYDROcodone/APAP 5-325MG 1 EACH TAB PO SCH ×4 (03:25→21:19)
[2022-09-10] MEDS: GABAPENTIN 400 MG CAP PO SCH ×3 (05:49→21:19)
[2022-09-10 06:01] LABS: Glucose,Whole Blood 87 mg/dL (70-110)
[2022-09-10] MEDS: INSULIN ASPART (NovoLOG) 100 UNIT/ML VIAL SQ SCH ×4 (06:01→21:20)
[2022-09-10 08:30] LABS: Basophils % (A) 0 %; Eosinophils # (A) 0.1 k/uL (0-0.7); Eosinophils % (A) 1 %; HCT 30.8 % (39.0-53.0); Lymphocytes % (A) 7 %; MCHC 32.5 g/dL (31.0-37.0); MCV 92.1 fL (80.0-100.0); Mean Platelet Volume 10.5; Monocytes # (A) 0.5 k/uL (0-1.0); Monocytes % (A) 4 %; Neutrophils # (A) 11.3 k/uL (1.3-7.7); Neutrophils % (A) 87 %; Platelet Count 179 k/uL (150-450); RBC 3.34 m/uL (4.30-5.90); RDW 15.2 % (11.5-15.5)
[2022-09-10] MEDS: APIXABAN 5 MG TAB PO SCH ×2 (08:58→21:19)
[2022-09-10] MEDS: MULTIVITAMINS, THERA 1 EACH TAB PO SCH (08:59)
[2022-09-10] MEDS: ISOSORBIDE MONONITRATE ER 30 MG TAB.ER.24H PO SCH (08:59)
[2022-09-10] MEDS: CHOLECALCIFEROL 25 MCG (1000 IU) TABLET PO SCH (08:59)
[2022-09-10] MEDS: METOPROLOL TARTRATE 50 MG TAB PO SCH ×2 (08:59→21:19)
[2022-09-10] MEDS: DOCUSATE 100 MG CAP PO SCH ×2 (08:59→21:19)
[2022-09-10] MEDS: RANOLAZINE 500 MG TAB.ER.12H PO SCH ×2 (08:59→21:19)
[2022-09-10] MEDS: POTASSIUM CHLORIDE ER 20 MEQ TAB.ER PO SCH ×2 (08:59→21:19)
[2022-09-10] MEDS: polyethylene glycoL 3350 17 GM POWD.PACK PO SCH (08:59)
[2022-09-10] MEDS ORDERED: VANCOMYCIN TROUGH DUE 1 EACH MISC MISCELLANE ONE (09:00)
[2022-09-10 09:29] LABS: Calcium 7.8 mg/dL (8.4-10.2); Potassium 4.9 mmol/L (3.5-5.1)
[2022-09-10] MEDS: VANCOMYCIN 1,500 MG in SODIUM CHLORIDE 0.9% 500 ML 500 ML IVPB SCH (10:29)
[2022-09-10] MEDS: DEXTROSE 10% IN WATER 1,000 ML with SODIUM CHLORIDE 4MEQ/ML VIAL 153.8 MEQ IV SCH (11:54)
--- NOTE | 2022-09-10 12:07 | P.PN ---
Progress Note - Text Progress Note Date: 09/10/22 The patient remains stable. His decubitus ulcer is stable. He'll continue local wound care with the wound care clinic.
--- NOTE | 2022-09-10 13:09 | P.PN ---
Subjective Progress Note Date: 09/10/22 HISTORY OF PRESENT ILLNESS: This is a 76-year-old male with a past medical history significant for permanent atrial fibrillation, hypertension, hyperlipidemia, diabetes and chronic kidney disease. Patient follows in the office with Dr. Quinonez. We have been asked to see the patient in consultation for afib with RVR. Patient examined at the bedside. Patient presented to the emergency room with a chief complaint of shortness of breath. He is being treated for left sided pneumonia. Patient was found to be in A. fib with RVR. Patient was started on IV Cardizem. Patient remains on IV Cardizem this morning at 5 mg an hour. Telemetry reveals atrial fibrillation with a heart rate in the 80s. Patient denies any chest pain or pressure. * EKG reveals atrial fibrillation with RVR * Chest xray left basilar airspace opacities correlate for pneumonia * Laboratory data: WBC 16.3. Hemoglobin 11.6. Platelet count 151. Sodium 130. Potassium 4.6. BUN 25. Creatinine 1.57. * Current home cardiac medications include Lipitor 40 mg at night, Imdur 30 mg daily, metoprolol tartrate 25 mg twice a day, Ranexa 500 mg twice a day, and Eliquis 5 mg twice a day * Left lower extremity Doppler: Negative for DVT * Most recent echocardiogram obtained in January 2022 revealed ejection fraction 55-60%, mild MR, mild TR * Cardiac catheterization history: January 2022 revealed equivocal between an area of reversibility along the basilar inferior wall versus diaphragmatic attenuation. This finding not corroborated on polar maps. 09/09/2022 Patient examined this morning at the bedside. Patient denies chest pain or pressure. He denies shortness of breath. His been evaluated by general surgery with no plans for surgical debridement. His anticoagulation has been resumed. Telemetry reveals atrial fibrillation with controlled ventricular rate. Patient's vital signs are stable. 09/10/2022 Patient examined this morning at the bedside. Patient denies chest pain or pre ssure. He denies shortness of breath. Vital signs are stable. Echocardiogram completed revealing ejection fraction 55-60%, mild mitral and mild to moderate tricuspid regurgitation. No pericardial effusion. PHYSICAL EXAM: VITAL SIGNS: Reviewed. GENERAL: Well-developed in no acute distress. HEENT: Head is normocephalic. Pupils are equal, round. Sclerae anicteric. Mucous membranes of the mouth are moist. Neck supple. No JVD or thyromegaly LUNGS: Respirations even and unlabored. Lungs coarse to auscultation bilaterally. HEART: Irregular rate and rhythm. S1 and S2 heard. Systolic murmur noted ABDOMEN: Soft. Nondistended. Nontender. EXTREMITIES: Normal range of motion. No clubbing or cyanosis. Peripheral pulses intact. Trace lower extremity edema. Right-sided flaccid secondary to previous CVA NEUROLOGIC: Awake and alert. Oriented x 3. ASSESSMENT: Left-sided pneumonia Permanent atrial fibrillation with RVR, currently rate controlled History of CVA with residual right-sided paralysis, patient bedbound Chronic kidney disease Hypertension Hyperlipidemia Diabetes Sacral decubitus ulcer PLAN: Continue current cardiac medications Continue telemetry monitoring Continue anticoagulation with Eliquis Patient is stable from a cardiac standpoint Further recommendations pending patient's course Nurse practitioner note has been reviewed by physician. Signing provider agrees with the documented findings, assessment, and plan of care. Objective - Vital Signs Vital signs: Vital Signs Temp 97.5 F L 09/10/22 12:00 Pulse 81 09/10/22 12:00 Resp 16 09/10/22 12:00 BP 109/69 09/10/22 12:00 Pulse Ox 93 L 09/10/22 12:00 FiO2 Intake & Output 09/09/22 09/10/22 09/10/22 18:59 06:59 18:59 Intake Total 1260 240 Output Total 300 Balance 1260 -300 240 Weight 128 kg Intake: Intake, IV Titration 600 Amount Piperacillin-Tazobactam 3 100 .375 gm In Sodium Chloride 0.9% 100 ml @ 25 mls/hr IVPB Q8H [facility] Rx#: [id number] Vancomycin 1,500 mg In 500 Sodium Chloride 0.9% 500 ml 500 ml @ 167 mls/hr IVPB Q24H [facility] Rx#: [id number] Oral 660 240 Output: Urine 300 Other: Voiding Method Diaper Diaper Diaper External Catheter External Catheter External Catheter # Voids 1 # Bowel Movements 1 - Labs CBC & Chem 7: 09/10/22 08:01 09/10/22 08:01 Labs: Abnormal Lab Results - Last 24 Hours (Table) 09/09/22 09/09/22 09/09/22 Range/Units 12:40 12:40 12:40 WBC (3.8-10.6) k/uL RBC (4.30-5.90) m/uL Hgb (13.0-17.5) gm/dL Hct (39.0-53.0) % Neutrophils # (1.3-7.7) k/uL ESR 114 H (0-15) mm/hr Sodium (137-145) mmol/L Chloride (98-107) mmol/L BUN (9-20) mg/dL Creatinine (0.66-1.25) mg/dL POC Glucose (mg/dL) (70-110) mg/dL Calcium (8.4-10.2) mg/dL C-Reactive Protein 20.4 H (<1.0) mg/dL Procalcitonin 0.54 H (0.02-0.09) ng/mL 09/09/22 09/09/22 09/09/22 Range/Units 13:03 13:04 18:01 WBC (3.8-10.6) k/uL RBC (4.30-5.90) m/uL Hgb (13.0-17.5) gm/dL Hct (39.0-53.0) % Neutrophils # (1.3-7.7) k/uL ESR (0-15) mm/hr Sodium (137-145) mmol/L Chloride (98-107) mmol/L BUN (9-20) mg/dL Creatinine (0.66-1.25) mg/dL POC Glucose (mg/dL) 65 L 67 L 116 H (70-110) mg/dL Calcium (8.4-10.2) mg/dL C-Reactive Protein (<1.0) mg/dL Procalcitonin (0.02-0.09) ng/mL 09/09/22 09/09/22 09/09/22 Range/Units 19:06 20:02 21:06 WBC (3.8-10.6) k/uL RBC (4.30-5.90) m/uL Hgb (13.0-17.5) gm/dL Hct (39.0-53.0) % Neutrophils # (1.3-7.7) k/uL ESR (0-15) mm/hr Sodium (137-145) mmol/L Chloride (98-107) mmol/L BUN (9-20) mg/dL Creatinine (0.66-1.25) mg/dL POC Glucose (mg/dL) 157 H 154 H 144 H (70-110) mg/dL Calcium (8.4-10.2) mg/dL C-Reactive Protein (<1.0) mg/dL Procalcitonin (0.02-0.09) ng/mL 09/09/22 09/10/22 09/10/22 Range/Units 22:03 08:01 08:01 WBC 13.0 H (3.8-10.6) k/uL RBC 3.34 L (4.30-5.90) m/uL Hgb 10.0 L (13.0-17.5) gm/dL Hct 30.8 L (39.0-53.0) % Neutrophils # 11.3 H (1.3-7.7) k/uL ESR (0-15) mm/hr Sodium 128 L (137-145) mmol/L Chloride 96 L (98-107) mmol/L BUN 27 H (9-20) mg/dL Creatinine 1.26 H (0.66-1.25) mg/dL POC Glucose (mg/dL) 137 H (70-110) mg/dL Calcium 7.8 L (8.4-10.2) mg/dL C-Reactive Protein (<1.0) mg/dL Procalcitonin (0.02-0.09) ng/mL Microbiology - Last 24 Hours (Table) 09/07/22 15:11 Blood Culture - Preliminary Blood No Growth after 48 hours 09/07/22 15:11 Blood Culture - Preliminary Blood No Growth after 48 hours
[2022-09-10 16:29] LABS: Glucose,Whole Blood 199 mg/dL (70-110)
--- NOTE | 2022-09-10 16:58 | P.PN ---
Subjective Progress Note Date: 09/10/22 "76-year-old male with history of prior stroke with right-sided deficit, wheelchair-bound, atrial fibrillation on Eliquis, diabetes, hypertension presenting with sepsis secondary to pneumonia, A. fib RVR. He is also encephalopathic initially on presentation, and found to have unstageable ulcer over the coccyx. On presentation, patient was febrile and tachycardic. Lab work showed leukocytosis, mild hyponatremia, acute kidney injury with creatinine 1.51. Patient admitted for further management. Cardiology and general surgery was consulted. Pertinent imaging: Lower extremity venous Doppler does not show any evidence of DVT " No new systemic symptoms Decubitus ulcer is being followed by wound care Cardiology is recommended with the current treatment plan Objective - Vital Signs Vital signs: Vital Signs Temp 97.5 F L 09/10/22 12:00 Pulse 81 09/10/22 14:00 Resp 16 09/10/22 14:00 BP 109/69 09/10/22 12:00 Pulse Ox 93 L 09/10/22 12:00 FiO2 Intake & Output 09/09/22 09/10/22 09/10/22 18:59 06:59 18:59 Intake Total 1260 360 Output Total 300 Balance 1260 -300 360 Weight 128 kg Intake: Intake, IV Titration 600 Amount Piperacillin-Tazobactam 3 100 .375 gm In Sodium Chloride 0.9% 100 ml @ 25 mls/hr IVPB Q8H [facility] Rx#: [id number] Vancomycin 1,500 mg In 500 Sodium Chloride 0.9% 500 ml 500 ml @ 167 mls/hr IVPB Q24H [facility] Rx#: [id number] Oral 660 360 Output: Urine 300 Other: Voiding Method Diaper Diaper Diaper External Catheter External Catheter External Catheter # Voids 1 # Bowel Movements 1 - Exam Vitals Signs Reviewed. General: nontoxic, no distress, appears at stated age Derm: warm, dry, sacral wound not observed, postsurgical incisions on her abdomen shows no erythema or drainage Head: atraumatic, normocephalic, symmetric Eyes: EOMI, no lid lag, anicteric sclera Mouth: no lip lesion, mucus membranes moist Cardiovascular: S1S2 irreguar, no murmur Lungs: CTA bilateral, no rhonchi, no rales , no accessory muscle use, supplemental oxygen Abdominal: soft, nontender to palpation, no guarding, no appreciable organomegaly Ext: no gross muscle atrophy, no edema, no contractures Neuro: CN II-XI grossly intact, right-sided weakness, chronic Psych: Alert, oriented, appropriate affect Data Reviewed Today: - Labs CBC & Chem 7: 09/10/22 08:01 09/10/22 08:01 Labs: Abnormal Lab Results - Last 24 Hours (Table) 09/09/22 09/09/22 09/09/22 Range/Units 18:01 19:06 20:02 WBC (3.8-10.6) k/uL RBC (4.30-5.90) m/uL Hgb (13.0-17.5) gm/dL Hct (39.0-53.0) % Neutrophils # (1.3-7.7) k/uL Sodium (137-145) mmol/L Chloride (98-107) mmol/L BUN (9-20) mg/dL Creatinine (0.66-1.25) mg/dL POC Glucose (mg/dL) 116 H 157 H 154 H (70-110) mg/dL Calcium (8.4-10.2) mg/dL 09/09/22 09/09/22 09/10/22 Range/Units 21:06 22:03 08:01 WBC (3.8-10.6) k/uL RBC (4.30-5.90) m/uL Hgb (13.0-17.5) gm/dL Hct (39.0-53.0) % Neutrophils # (1.3-7.7) k/uL Sodium 128 L (137-145) mmol/L Chloride 96 L (98-107) mmol/L BUN 27 H (9-20) mg/dL Creatinine 1.26 H (0.66-1.25) mg/dL POC Glucose (mg/dL) 144 H 137 H (70-110) mg/dL Calcium 7.8 L (8.4-10.2) mg/dL 09/10/22 09/10/22 Range/Units 08:01 16:27 WBC 13.0 H (3.8-10.6) k/uL RBC 3.34 L (4.30-5.90) m/uL Hgb 10.0 L (13.0-17.5) gm/dL Hct 30.8 L (39.0-53.0) % Neutrophils # 11.3 H (1.3-7.7) k/uL Sodium (137-145) mmol/L Chloride (98-107) mmol/L BUN (9-20) mg/dL Creatinine (0.66-1.25) mg/dL POC Glucose (mg/dL) 199 H (70-110) mg/dL Calcium (8.4-10.2) mg/dL Microbiology - Last 24 Hours (Table) 09/07/22 15:11 Blood Culture - Preliminary Blood No Growth after 48 hours 09/07/22 15:11 Blood Culture - Preliminary Blood No Growth after 48 hours Assessment and Plan Assessment: Assessment and Plan: Patient is currently critically ill, septic, requiring IV antibiotics. Prognosis guarded Blood cultures no growth to date Active: Sepsis secondary to left-sided pneumonia versus sacral decubitus ulcer present on admission Permanent A. fib, rate controlled Hypoglycemia Acute kidney injury, resolving Mild hyponatremia Normocytic anemia -Patient currently on Zosyn 3.375 g IV every 8 hours, azithromycin 500 mg IV daily -Also on vancomycin, continue monitor renal function with daily BMP due to risk of renal toxicity especially in the setting of kidney injury -Blood cultures negative so far -Cardiology note reviewed, on metoprolol 50 mg twice a day, and Eliquis 5 mg twice a day -Echocardiogram report reviewed, shows normal systolic function, mild mitral regurgitation, and mild to moderate TR -Surgery following, No surgical interventions planned -Wound care was consulted, note reviewed, recommendations for stage III decubitus sacral ulcer -Hypoglycemia possibly in the setting of home medications and renal dysfunction, continue to monitor -Currently on D10 normal saline at 75 mL an hour -Continue to monitor urine output and renal function with BMP, , improving -Hyponatremia possibly hypovolemic versus euvolemic, remains stable -No active signs of bleeding, repeat CBC,cmp,procal,crp, tomorrow Resolved: A. fib with RVR Acute septic encephalopathy Chronic: History of stroke with right-sided deficits, wheelchair-bound Hypertension Tremors Depression DVT ppx: Eliquis Code status: Full code Anticipated discharge place: Pending clinical course Anticipated discharge time: Pending clinical course
[2022-09-10 20:21] LABS: Glucose,Whole Blood 248 mg/dL (70-110)
[2022-09-10] MEDS: ATORVASTATIN 40 MG TAB PO SCH (21:19)
[2022-09-10] MEDS: PRIMIDONE 50 MG TAB PO SCH (21:19)
[2022-09-10] MEDS: TAMSULOSIN 0.4 MG CAP.ER.24H PO SCH (21:19)
[2022-09-10] MEDS: PANTOPRAZOLE 40 MG TABLET PO SCH (21:19)
[2022-09-10] MEDS: SENNOSIDES 8.6 MG TAB PO SCH (21:19)
[2022-09-10] MEDS: MELATONIN 5 MG TABLET PO SCH (21:19)
[2022-09-10] MEDS: LATANOPROST 0.005% OPHTH DROPS 2.5 ML BTL LEFT EYE SCH (21:20)
[2022-09-10] MEDS: PARoxetine 10 MG TAB PO SCH (21:20)
[2022-09-10] MEDS: AZITHROMYCIN 500 MG in SODIUM CHLORIDE 0.9% 250 ML IVPB SCH (21:20)
[2022-09-11 02:28] LABS: Glucose,Whole Blood 133 mg/dL (70-110)
[2022-09-11] MEDS: PIPERACILLIN-TAZOBACTAM 3.375 GM in SODIUM CHLORIDE 0.9% 100 ML IVPB SCH (04:37)
[2022-09-11] MEDS: DEXTROSE 10% IN WATER 1,000 ML with SODIUM CHLORIDE 4MEQ/ML VIAL 153.8 MEQ IV SCH (04:40)
[2022-09-11] MEDS: HYDROcodone/APAP 5-325MG 1 EACH TAB PO SCH ×4 (04:40→20:37)
[2022-09-11 06:16] LABS: Glucose,Whole Blood 130 mg/dL (70-110)
[2022-09-11] MEDS: INSULIN ASPART (NovoLOG) 100 UNIT/ML VIAL SQ SCH ×4 (06:25→20:37)
[2022-09-11] MEDS: GABAPENTIN 400 MG CAP PO SCH ×3 (06:26→18:43)
[2022-09-11 07:59] LABS: Basophils % (A) 0 %; Eosinophils # (A) 0.1 k/uL (0-0.7); Eosinophils % (A) 1 %; HCT 31.6 % (39.0-53.0); HGB 10.5 gm/dL (13.0-17.5); Lymphocytes # (A) 1.2 k/uL (1.0-4.8); Lymphocytes % (A) 10 %; MCH 30.8 pg (25.0-35.0); MCHC 33.3 g/dL (31.0-37.0); MCV 92.6 fL (80.0-100.0); Mean Platelet Volume 10.5; Monocytes # (A) 0.6 k/uL (0-1.0); Monocytes % (A) 5 %; Neutrophils % (A) 82 %; Platelet Count 223 k/uL (150-450); RBC 3.41 m/uL (4.30-5.90); RDW 15.2 % (11.5-15.5); WBC 12.2 k/uL (3.8-10.6)
[2022-09-11 08:22] LABS: Albumin 2.7 g/dL (3.5-5.0); Phosphorus 3.7 mg/dL (2.5-4.5); Potassium 5.1 mmol/L (3.5-5.1); Total Bilirubin 0.7 mg/dL (0.2-1.3); Total Protein 6.8 g/dL (6.3-8.2)
[2022-09-11 08:52] LABS: C Reactive Protein 8.5 mg/dL (<1.0)
[2022-09-11] MEDS: CHOLECALCIFEROL 25 MCG (1000 IU) TABLET PO SCH (09:08)
[2022-09-11] MEDS: POTASSIUM CHLORIDE ER 20 MEQ TAB.ER PO SCH ×2 (09:08→20:37)
[2022-09-11] MEDS: RANOLAZINE 500 MG TAB.ER.12H PO SCH ×2 (09:08→20:38)
[2022-09-11] MEDS: MULTIVITAMINS, THERA 1 EACH TAB PO SCH (09:08)
[2022-09-11] MEDS: APIXABAN 5 MG TAB PO SCH ×2 (09:08→20:38)
[2022-09-11] MEDS: ISOSORBIDE MONONITRATE ER 30 MG TAB.ER.24H PO SCH (09:08)
[2022-09-11] MEDS: METOPROLOL TARTRATE 50 MG TAB PO SCH ×2 (09:08→20:38)
[2022-09-11] MEDS: DOCUSATE 100 MG CAP PO SCH ×2 (09:18→20:38)
[2022-09-11] MEDS: polyethylene glycoL 3350 17 GM POWD.PACK PO SCH (09:18)
--- NOTE | 2022-09-11 10:25 | P.PN ---
Subjective Progress Note Date: 09/11/22 HISTORY OF PRESENT ILLNESS: This is a 76-year-old male with a past medical history significant for permanent atrial fibrillation, hypertension, hyperlipidemia, diabetes and chronic kidney disease. Patient follows in the office with Dr. Quinonez. We have been asked to see the patient in consultation for afib with RVR. Patient examined at the bedside. Patient presented to the emergency room with a chief complaint of shortness of breath. He is being treated for left sided pneumonia. Patient was found to be in A. fib with RVR. Patient was started on IV Cardizem. Patient remains on IV Cardizem this morning at 5 mg an hour. Telemetry reveals atrial fibrillation with a heart rate in the 80s. Patient denies any chest pain or pressure. * EKG reveals atrial fibrillation with RVR * Chest xray left basilar airspace opacities correlate for pneumonia * Laboratory data: WBC 16.3. Hemoglobin 11.6. Platelet count 151. Sodium 130. Potassium 4.6. BUN 25. Creatinine 1.57. * Current home cardiac medications include Lipitor 40 mg at night, Imdur 30 mg daily, metoprolol tartrate 25 mg twice a day, Ranexa 500 mg twice a day, and Eliquis 5 mg twice a day * Left lower extremity Doppler: Negative for DVT * Most recent echocardiogram obtained in January 2022 revealed ejection fraction 55-60%, mild MR, mild TR * Cardiac catheterization history: January 2022 revealed equivocal between an area of reversibility along the basilar inferior wall versus diaphragmatic attenuation. This finding not corroborated on polar maps. 09/09/2022 Patient examined this morning at the bedside. Patient denies chest pain or pressure. He denies shortness of breath. His been evaluated by general surgery with no plans for surgical debridement. His anticoagulation has been resumed. Telemetry reveals atrial fibrillation with controlled ventricular rate. Patient's vital signs are stable. 09/10/2022 Patient examined this morning at the bedside. Patient denies chest pain or pre ssure. He denies shortness of breath. Vital signs are stable. Echocardiogram completed revealing ejection fraction 55-60%, mild mitral and mild to moderate tricuspid regurgitation. No pericardial effusion. 09/11/2022 Patient examined this morning to bedside. No complaints of chest pain or pressu re. No shortness of breath. Telemetry reveals atrial fibrillation with controlled ventricular rates. PHYSICAL EXAM: VITAL SIGNS: Reviewed. GENERAL: Well-developed in no acute distress. HEENT: Head is normocephalic. Pupils are equal, round. Sclerae anicteric. Mucous membranes of the mouth are moist. Neck supple. No JVD or thyromegaly LUNGS: Respirations even and unlabored. Lungs coarse to auscultation bilaterally. HEART: Irregular rate and rhythm. S1 and S2 heard. Systolic murmur noted ABDOMEN: Soft. Nondistended. Nontender. EXTREMITIES: Normal range of motion. No clubbing or cyanosis. Peripheral pulses intact. Trace lower extremity edema. Right-sided flaccid secondary to previous CVA NEUROLOGIC: Awake and alert. Oriented x 3. ASSESSMENT: Left-sided pneumonia Permanent atrial fibrillation with RVR, currently rate controlled History of CVA with residual right-sided paralysis, patient bedbound Chronic kidney disease Hypertension Hyperlipidemia Diabetes Sacral decubitus ulcer PLAN: Continue current cardiac medications Continue telemetry monitoring Continue anticoagulation with Eliquis Patient is stable from a cardiac standpoint Further recommendations pending patient's course We will sign off. Please reconsult if needed. Nurse practitioner note has been reviewed by physician. Signing provider agrees with the documented findings, assessment, and plan of care. Objective - Vital Signs Vital signs: Vital Signs Temp 98.6 F 09/10/22 21:20 Pulse 87 09/11/22 08:42 Resp 20 09/11/22 08:42 BP 132/64 09/11/22 08:42 Pulse Ox 93 L 09/11/22 08:42 FiO2 Intake & Output 09/10/22 09/11/22 09/11/22 18:59 06:59 18:59 Intake Total 830 358 Output Total 700 550 Balance 830 -700 -192 Intake: Intake, IV Titration 350 Amount Azithromycin 500 mg In 250 Sodium Chloride 0.9% 250 ml @ 250 mls/hr IVPB DAILY@2000 [facility] Rx#: [id number] Piperacillin-Tazobactam 3 100 .375 gm In Sodium Chloride 0.9% 100 ml @ 25 mls/hr IVPB Q8H [facility] Rx#: [id number] Oral 480 358 Output: Urine 700 550 Other: Voiding Method Diaper Diaper Diaper External Catheter External Catheter External Catheter # Voids 1 # Bowel Movements 1 - Labs CBC & Chem 7: 09/11/22 07:00 04/08/23 07:00 Labs: Abnormal Lab Results - Last 24 Hours (Table) 09/10/22 09/10/22 09/11/22 Range/Units 16:27 20:20 02:26 WBC (3.8-10.6) k/uL RBC (4.30-5.90) m/uL Hgb (13.0-17.5) gm/dL Hct (39.0-53.0) % Neutrophils # (1.3-7.7) k/uL Sodium (137-145) mmol/L Chloride (98-107) mmol/L BUN (9-20) mg/dL Creatinine (0.66-1.25) mg/dL Glucose (74-99) mg/dL POC Glucose (mg/dL) 199 H 248 H 133 H (70-110) mg/dL Calcium (8.4-10.2) mg/dL AST (17-59) U/L ALT (4-49) U/L Alkaline Phosphatase (38-126) U/L C-Reactive Protein (<1.0) mg/dL Albumin (3.5-5.0) g/dL 09/11/22 09/11/22 09/11/22 Range/Units 06:15 07:00 07:00 WBC 12.2 H (3.8-10.6) k/uL RBC 3.41 L (4.30-5.90) m/uL Hgb 10.5 L (13.0-17.5) gm/dL Hct 31.6 L (39.0-53.0) % Neutrophils # 10.0 H (1.3-7.7) k/uL Sodium 132 L (137-145) mmol/L Chloride 97 L (98-107) mmol/L BUN 33 H (9-20) mg/dL Creatinine 1.31 H (0.66-1.25) mg/dL Glucose 113 H (74-99) mg/dL POC Glucose (mg/dL) 130 H (70-110) mg/dL Calcium 8.0 L (8.4-10.2) mg/dL AST 69 H (17-59) U/L ALT 103 H (4-49) U/L Alkaline Phosphatase 241 H (38-126) U/L C-Reactive Protein 8.5 H (<1.0) mg/dL Albumin 2.7 L (3.5-5.0) g/dL Microbiology - Last 24 Hours (Table) 09/07/22 15:11 Blood Culture - Preliminary Blood No Growth after 72 hours 09/07/22 15:11 Blood Culture - Preliminary Blood No Growth after 72 hours
[2022-09-11] MEDS: MORPHINE SULFATE 4 MG/ML SYRINGE IVP PRN (11:29)
[2022-09-11 11:38] LABS: Glucose,Whole Blood 171 mg/dL (70-110)
--- NOTE | 2022-09-11 13:00 | P.PN ---
Subjective Progress Note Date: 09/11/22 Hospital Course: 76-year-old male with history of prior stroke with right-sided deficit, wheelchair-bound, atrial fibrillation on Eliquis, diabetes, hypertension presenting with sepsis secondary to pneumonia, A. fib RVR. He is also encephalopathic initially on presentation, and found to have unstageable ulcer over the coccyx. On presentation, patient was febrile and tachycardic. Lab work showed leukocytosis, mild hyponatremia, acute kidney injury with creatinine 1.51. Patient admitted for further management. Cardiology and general surgery was consulted. Gen. surgery not recommending any further interventions. Elevated inflammatory markers. ID consulted. From cardiology standpoint, patient is now stable. Echocardiogram report reviewed, shows normal systolic function, mild mitral regurgitation, and mild to moderate TR Pertinent imaging: Lower extremity venous Doppler does not show any evidence of DVT Subjective: Patient seen and examined at bedside. Per nursing, patient having purulent discharge from the wound. He claims that shortness of breath is improved. Pertinent positives and negatives as discussed above, a complete review of systems was performed and all other systems are negative. Vitals Signs Reviewed. General: nontoxic, no distress, appears at stated age Derm: warm, dry, sacral wound not observed, Head: atraumatic, normocephalic, symmetric Eyes: EOMI, no lid lag, anicteric sclera Mouth: no lip lesion, mucus membranes moist Cardiovascular: S1S2 reg, no murmur Lungs: CTA bilateral, no rhonchi, no rales , no accessory muscle use, suppl emental oxygen Abdominal: soft, nontender to palpation, no guarding, no appreciable organomegaly Ext: no gross muscle atrophy, no edema, no contractures Neuro: CN II-XI grossly intact, right-sided weakness, chronic Psych: Alert, oriented, appropriate affect Data Reviewed Today: Pertinent Labs: WBC 12.2, hemoglobin 10.5, sodium 132, creatinine 1.31, blood sugars range between 113 2-48 Assessment and Plan: Patient is currently critically ill, septic, requiring IV antibiotics. Prognosis guarded Blood cultures no growth to date Active: Sepsis secondary to left-sided pneumonia versus sacral decubitus ulcer present on admission Permanent A. fib, rate controlled Acute kidney injury Mild hyponatremia Normocytic anemia -Elevated inflammatory markers -Patient currently on azithromycin and ceftriaxone for pneumonia -Swallow evaluation also ordered given history of stroke -Surgery had evaluated the patient, not recommending interventions -1 care was also consulted, recommendations with stage III decubitus sacral ulcer -His antibiotics were to be escalated -However given elevated inflammatory markers, and possible purulent discharge from wound site, ID was consulted -Blood cultures negative so far -Cardiology note reviewed, patient stable from this standpoint -Continue to monitor urine output and renal function with BMP -Hyponatremia possibly hypovolemic versus euvolemic, remains stable -No active signs of bleeding, repeat CBC tomorrow Resolved: A. fib with RVR Acute septic encephalopathy Hypoglycemia Chronic: History of stroke with right-sided deficits, wheelchair-bound Hypertension Tremors Depression DVT ppx: Eliquis Code status: Full code Anticipated discharge place: Pending clinical course Anticipated discharge time: Pending clinical course Objective - Vital Signs Vital signs: Vital Signs Temp 98.6 F 09/10/22 21:20 Pulse 70 09/11/22 11:26 Resp 19 09/11/22 11:26 BP 115/70 09/11/22 11:26 Pulse Ox 95 09/11/22 11:26 FiO2 Intake & Output 09/10/22 09/11/22 09/11/22 18:59 06:59 18:59 Intake Total 830 358 Output Total 700 550 Balance 830 -700 -192 Intake: Intake, IV Titration 350 Amount Azithromycin 500 mg In 250 Sodium Chloride 0.9% 250 ml @ 250 mls/hr IVPB DAILY@2000 [facility] Rx#: [id number] Piperacillin-Tazobactam 3 100 .375 gm In Sodium Chloride 0.9% 100 ml @ 25 mls/hr IVPB Q8H [facility] Rx#: [id number] Oral 480 358 Output: Urine 700 550 Other: Voiding Method Diaper Diaper Diaper External Catheter External Catheter External Catheter # Voids 1 # Bowel Movements 1 - Labs CBC & Chem 7: 09/11/22 07:00 09/11/22 07:00 Labs: Abnormal Lab Results - Last 24 Hours (Table) 09/10/22 09/10/22 09/11/22 Range/Units 16:27 20:20 02:26 WBC (3.8-10.6) k/uL RBC (4.30-5.90) m/uL Hgb (13.0-17.5) gm/dL Hct (39.0-53.0) % Neutrophils # (1.3-7.7) k/uL Sodium (137-145) mmol/L Chloride (98-107) mmol/L BUN (9-20) mg/dL Creatinine (0.66-1.25) mg/dL Glucose (74-99) mg/dL POC Glucose (mg/dL) 199 H 248 H 133 H (70-110) mg/dL Calcium (8.4-10.2) mg/dL AST (17-59) U/L ALT (4-49) U/L Alkaline Phosphatase (38-126) U/L C-Reactive Protein (<1.0) mg/dL Albumin (3.5-5.0) g/dL 09/11/22 09/11/22 09/11/22 Range/Units 06:15 07:00 07:00 WBC 12.2 H (3.8-10.6) k/uL RBC 3.41 L (4.30-5.90) m/uL Hgb 10.5 L (13.0-17.5) gm/dL Hct 31.6 L (39.0-53.0) % Neutrophils # 10.0 H (1.3-7.7) k/uL Sodium 132 L (137-145) mmol/L Chloride 97 L (98-107) mmol/L BUN 33 H (9-20) mg/dL Creatinine 1.31 H (0.66-1.25) mg/dL Glucose 113 H (74-99) mg/dL POC Glucose (mg/dL) 130 H (70-110) mg/dL Calcium 8.0 L (8.4-10.2) mg/dL AST 69 H (17-59) U/L ALT 103 H (4-49) U/L Alkaline Phosphatase 241 H (38-126) U/L C-Reactive Protein 8.5 H (<1.0) mg/dL Albumin 2.7 L (3.5-5.0) g/dL 09/11/22 Range/Units 11:37 WBC (3.8-10.6) k/uL RBC (4.30-5.90) m/uL Hgb (13.0-17.5) gm/dL Hct (39.0-53.0) % Neutrophils # (1.3-7.7) k/uL Sodium (137-145) mmol/L Chloride (98-107) mmol/L BUN (9-20) mg/dL Creatinine (0.66-1.25) mg/dL Glucose (74-99) mg/dL POC Glucose (mg/dL) 171 H (70-110) mg/dL Calcium (8.4-10.2) mg/dL AST (17-59) U/L ALT (4-49) U/L Alkaline Phosphatase (38-126) U/L C-Reactive Protein (<1.0) mg/dL Albumin (3.5-5.0) g/dL Microbiology - Last 24 Hours (Table) 09/07/22 15:11 Blood Culture - Preliminary Blood No Growth after 72 hours 09/07/22 15:11 Blood Culture - Preliminary Blood No Growth after 72 hours
[2022-09-11 16:30] LABS: Glucose,Whole Blood 193 mg/dL (70-110)
[2022-09-11 20:04] LABS: Glucose,Whole Blood 175 mg/dL (70-110)
[2022-09-11] MEDS: ATORVASTATIN 40 MG TAB PO SCH (20:37)
[2022-09-11] MEDS: PRIMIDONE 50 MG TAB PO SCH (20:37)
[2022-09-11] MEDS: SENNOSIDES 8.6 MG TAB PO SCH (20:38)
[2022-09-11] MEDS: LATANOPROST 0.005% OPHTH DROPS 2.5 ML BTL LEFT EYE SCH (20:38)
[2022-09-11] MEDS: AZITHROMYCIN 500 MG in SODIUM CHLORIDE 0.9% 250 ML IVPB SCH (20:38)
[2022-09-11] MEDS: PANTOPRAZOLE 40 MG TABLET PO SCH (20:38)
[2022-09-11] MEDS: MELATONIN 5 MG TABLET PO SCH (20:38)
[2022-09-11] MEDS: TAMSULOSIN 0.4 MG CAP.ER.24H PO SCH (20:38)
[2022-09-11] MEDS: PARoxetine 10 MG TAB PO SCH (20:39)
--- NOTE | 2022-09-11 21:13 | P.CONS ---
History of Present Illness - Reason for Consult Consult date: 09/11/22 Purulent coccyx sacral pressure ulcer Requesting physician: Darci Chávez - History of Present Illness Patient is a 76-year-old male with a past medical history taken for CVA TIA hyperlipidemia and angina history of A-fib patient has been brought into the ER for evaluation of confusion and fever and apparently patient was noticed to have unstageable ulcer of the sacral area and some drainage erythema concerning for possible infected sacral pressure ulcer patient mention he did have this ulcer for more than a few weeks now he is not very clear with the current treatment he has received for it patient be complaining of some discomfort associated with it but unable to quantify it any further patient denies having any headache or URI symptoms no chest pain or shortness with occasional cough no abdominal pain or diarrhea patient presented to the hospital have a fever of 102 F patient did have a elevated white count of 11.6 subsequent white count was up to 16.3 BUN and creatinine has been mildly elevated liver enzymes, urine has been negative influenza RSV COVID testing was negative blood culture has been obtained and has been negative patient did have a chest x-ray left basilar airspace disease correlate for pneumonia patient has been evaluated by general surgery recommending no surgical intervention they have consulted wound care who is recommending [facility] infectious disease was consulted today 4 days after the patient has been in the hospital and is currently being treated with Rocephin and Zithromax and the patient did have resolution of his fever prior to that the patient has been on vancomycin and Zosyn which was discontinued earlier this morning Review of Systems Positive point has been mentioned in the HPI rest of the systems are negative Past Medical History Past Medical History: Chest Pain / Angina, CVA/TIA, Hyperlipidemia History of Any Multi-Drug Resistant Organisms: None Reported Past Surgical History: Appendectomy, Orthopedic Surgery Past Anesthesia/Blood Transfusion Reactions: No Reported Reaction Past Psychological History: No Psychological Hx Reported, Depression Smoking Status: Never smoker Past Alcohol Use History: None Reported Past Drug Use History: None Reported Medications and Allergies Home Medications Medication Instructions Recorded Confirmed Type Artificial Tears-Hypromellose 1 drops BOTH EYES TID PRN 01/17/22 09/07/22 Histo ry [Artificial Tear Drops] Cholecalciferol [Vitamin D3 (25 25 mcg PO DAILY 01/17/22 09/07/22 History Mcg = 1000 Iu)] Latanoprost/Pf [Latanoprost 0.005% 1 drop LEFT EYE HS 01/17/22 09/07/22 History Eye Drop] Omeprazole 20 mg PO HS 01/17/22 09/07/22 History PARoxetine [Paxil] 10 mg PO HS 01/17/22 09/07/22 History Potassium Chloride ER [K-Dur 20] 20 meq PO BID 01/17/22 09/07/22 History Primidone [Mysoline] 50 mg PO HS 01/17/22 09/07/22 History Sennosides [Senokot] 8.6 mg PO HS 01/17/22 09/07/22 History Sennosides [Senokot] 17.2 mg PO DAILY 01/17/22 09/07/22 History Tamsulosin [Flomax] 0.4 mg PO HS 01/17/22 09/07/22 History polyethylene glycoL 3350 [Miralax] 17 gm PO DAILY 01/17/22 09/07/22 History Metoprolol Tartrate [Lopressor] 25 mg PO BID #0 01/19/22 09/07/22 Rx Atorvastatin [Lipitor] 40 mg PO HS 03/01/22 09/07/22 History Nitroglycerin Sl Tabs [Nitrostat] 0.4 mg SL Q5M PRN 03/01/22 09/07/22 History Apixaban [Eliquis] 5 mg PO BID 08/04/22 09/07/22 History Baclofen 5 mg PO DAILY PRN 08/04/22 09/07/22 History Gabapentin [Neurontin] 400 mg PO TID@0700,1300,1900 08/04/22 09/07/22 History Multivitamins, Thera [Multivitamin 1 tab PO DAILY 08/04/22 09/07/22 History (formulary)] Isosorbide Mononitrate ER [Imdur] 30 mg PO DAILY #30 tab 08/12/22 09/07/22 Rx Acetaminophen Tab [Tylenol Tab] 1,000 mg PO BID PRN 09/07/22 09/07/22 History Docusate [Colace] 100 mg PO BID 09/07/22 09/07/22 History HYDROcodone/APAP 5-325MG [Anthony 1 tab PO Q6H 09/07/22 09/07/22 History 5-325] Ranolazine [Ranexa] 500 mg PO BID 09/07/22 09/07/22 History glipiZIDE XL [Glucotrol Xl] 5 mg PO DAILY@1400 09/07/22 09/07/22 History glipiZIDE XL [Glucotrol Xl] 10 mg PO DAILY@0600 09/07/22 09/07/22 History Allergies Allergy/AdvReac Type Severity Reaction Status Date / Time No Known Allergies Allergy Verified 09/07/22 16:05 Physical Exam Vitals: Vital Signs Temp Pulse Resp BP Pulse Ox 09/11/22 11:26 70 19 115/70 95 09/11/22 08:42 87 20 132/64 93 L 09/11/22 07:56 95 09/11/22 04:40 68 17 116/69 93 L 09/10/22 23:38 72 18 130/75 97 09/10/22 21:20 98.6 F 81 18 132/71 94 L 09/10/22 16:00 98.7 F 81 16 134/71 94 L 09/10/22 14:00 81 16 Intake and Output 09/10/22 09/11/22 09/11/22 22:59 06:59 14:59 Intake Total 470 358 Output Total 700 550 Balance 470 -700 -192 Intake: Intake, IV Titration 350 Amount Azithromycin 500 mg In 250 Sodium Chloride 0.9% 250 ml @ 250 mls/hr IVPB DAILY@2000 [facility] Rx#: [id number] Piperacillin-Tazobactam 3 100 .375 gm In Sodium Chloride 0.9% 100 ml @ 25 mls/hr IVPB Q8H [facility] Rx#: [id number] Oral 120 358 Output: Urine 700 550 Other: Voiding Method Diaper Diaper Diaper External Catheter External Catheter External Catheter # Bowel Movements 1 GENERAL DESCRIPTION: Elderly male lying in bed, no distress. No tachypnea or accessory muscle of respiration use. HEENT: Shows Pallor , no scleral icterus. Oral mucous membrane is dry. NECK: Trachea central, no thyromegaly. LUNGS: Unlabored breathing. Clear to auscultation anteriorly. No wheeze or crackle. HEART: S1, S2, regular rate and rhythm. No loud murmur ABDOMEN: Soft, no tenderness , guarding or rigidity, no organomegaly EXTREMITIES: No edema of feet. SKIN: Sacral pressure ulcer with no significant slough tissue surrounding redness or drainage was noticed. NEUROLOGICAL: The patient is awake, alert, oriented x3, mood and affect normal. Results CBC & Chem 7: 09/11/22 07:00 09/11/22 07:00 Labs: Abnormal Lab Results - Last 24 Hours (Table) 09/10/22 09/10/22 09/11/22 Range/Units 16:27 20:20 02:26 WBC (3.8-10.6) k/uL RBC (4.30-5.90) m/uL Hgb (13.0-17.5) gm/dL Hct (39.0-53.0) % Neutrophils # (1.3-7.7) k/uL Sodium (137-145) mmol/L Chloride (98-107) mmol/L BUN (9-20) mg/dL Creatinine (0.66-1.25) mg/dL Glucose (74-99) mg/dL POC Glucose (mg/dL) 199 H 248 H 133 H (70-110) mg/dL Calcium (8.4-10.2) mg/dL AST (17-59) U/L ALT (4-49) U/L Alkaline Phosphatase (38-126) U/L C-Reactive Protein (<1.0) mg/dL Albumin (3.5-5.0) g/dL 09/11/22 09/11/22 09/11/22 Range/Units 06:15 07:00 07:00 WBC 12.2 H (3.8-10.6) k/uL RBC 3.41 L (4.30-5.90) m/uL Hgb 10.5 L (13.0-17.5) gm/dL Hct 31.6 L (39.0-53.0) % Neutrophils # 10.0 H (1.3-7.7) k/uL Sodium 132 L (137-145) mmol/L Chloride 97 L (98-107) mmol/L BUN 33 H (9-20) mg/dL Creatinine 1.31 H (0.66-1.25) mg/dL Glucose 113 H (74-99) mg/dL POC Glucose (mg/dL) 130 H (70-110) mg/dL Calcium 8.0 L (8.4-10.2) mg/dL AST 69 H (17-59) U/L ALT 103 H (4-49) U/L Alkaline Phosphatase 241 H (38-126) U/L C-Reactive Protein 8.5 H (<1.0) mg/dL Albumin 2.7 L (3.5-5.0) g/dL 09/11/22 Range/Units 11:37 WBC (3.8-10.6) k/uL RBC (4.30-5.90) m/uL Hgb (13.0-17.5) gm/dL Hct (39.0-53.0) % Neutrophils # (1.3-7.7) k/uL Sodium (137-145) mmol/L Chloride (98-107) mmol/L BUN (9-20) mg/dL Creatinine (0.66-1.25) mg/dL Glucose (74-99) mg/dL POC Glucose (mg/dL) 171 H (70-110) mg/dL Calcium (8.4-10.2) mg/dL AST (17-59) U/L ALT (4-49) U/L Alkaline Phosphatase (38-126) U/L C-Reactive Protein (<1.0) mg/dL Albumin (3.5-5.0) g/dL Microbiology - Last 24 Hours (Table) 09/07/22 15:11 Blood Culture - Preliminary Blood No Growth after 72 hours 09/07/22 15:11 Blood Culture - Preliminary Blood No Growth after 72 hours Assessment and Plan Plan: 1patient presented to hospital with fever patient also has some shortness of breath and a left lower lobe infiltrate concerning for possible pneumonia patient did have a sacral pressure ulcer the nursing staff have changed the dressing and did show me the picture overall the wound did not look infected to me however it would be further evaluated at the time of dressing changes belia orrow 2-for now continue with the Rocephin and Zithromax 3-Medihoney to the wound keep the area of the pressure We will follow on clinical condition and cultures to further adjust medication if needed Thank you for this consultation we will follow the patient along with you Time with Patient: Greater than 30
[2022-09-12] MEDS: HYDROcodone/APAP 5-325MG 1 EACH TAB PO SCH ×4 (02:34→20:16)
[2022-09-12 06:02] LABS: Glucose,Whole Blood 135 mg/dL (70-110)
[2022-09-12] MEDS: INSULIN ASPART (NovoLOG) 100 UNIT/ML VIAL SQ SCH ×4 (06:03→20:15)
[2022-09-12] MEDS: GABAPENTIN 400 MG CAP PO SCH ×3 (06:18→18:04)
[2022-09-12 07:55] LABS: Basophils # (A) 0.1 k/uL (0-0.2); Basophils % (A) 1 %; Eosinophils # (A) 0.3 k/uL (0-0.7); Eosinophils % (A) 2 %; HCT 30.8 % (39.0-53.0); Lymphocytes # (A) 1.2 k/uL (1.0-4.8); Lymphocytes % (A) 9 %; MCH 30.6 pg (25.0-35.0); MCHC 32.6 g/dL (31.0-37.0); MCV 93.9 fL (80.0-100.0); Mean Platelet Volume 9.7; Monocytes # (A) 0.7 k/uL (0-1.0); Monocytes % (A) 5 %; Neutrophils # (A) 11.1 k/uL (1.3-7.7); Neutrophils % (A) 82 %; Platelet Count 274 k/uL (150-450); RBC 3.28 m/uL (4.30-5.90); RDW 15.1 % (11.5-15.5); WBC 13.6 k/uL (3.8-10.6)
[2022-09-12 08:06] LABS: Calcium 8.2 mg/dL (8.4-10.2)
[2022-09-12 08:14] LABS: Potassium 5.5 mmol/L (3.5-5.1)
[2022-09-12] MEDS: MULTIVITAMINS, THERA 1 EACH TAB PO SCH (08:50)
[2022-09-12] MEDS: CHOLECALCIFEROL 25 MCG (1000 IU) TABLET PO SCH (08:50)
[2022-09-12] MEDS: ISOSORBIDE MONONITRATE ER 30 MG TAB.ER.24H PO SCH (08:50)
[2022-09-12] MEDS: METOPROLOL TARTRATE 50 MG TAB PO SCH ×2 (08:50→20:16)
[2022-09-12] MEDS: RANOLAZINE 500 MG TAB.ER.12H PO SCH ×2 (08:51→20:16)
[2022-09-12] MEDS: APIXABAN 5 MG TAB PO SCH ×2 (08:51→20:16)
[2022-09-12] MEDS: polyethylene glycoL 3350 17 GM POWD.PACK PO SCH (08:56)
[2022-09-12] MEDS: DOCUSATE 100 MG CAP PO SCH ×2 (08:56→20:16)
[2022-09-12] MEDS: POTASSIUM CHLORIDE ER 20 MEQ TAB.ER PO SCH ×2 (08:56→20:16)
[2022-09-12 11:45] LABS: Glucose,Whole Blood 180 mg/dL (70-110)
[2022-09-12] MEDS: MORPHINE SULFATE 4 MG/ML SYRINGE IVP PRN (12:51)
--- NOTE | 2022-09-12 13:00 | P.PN ---
Subjective Progress Note Date: 09/12/22 Hospital Course: 76-year-old male with history of prior stroke with right-sided deficit, wheelchair-bound, atrial fibrillation on Eliquis, diabetes, hypertension presenting with sepsis secondary to pneumonia, A. fib RVR. He is also encephalopathic initially on presentation, and found to have unstageable ulcer over the coccyx. On presentation, patient was febrile and tachycardic. Lab work showed leukocytosis, mild hyponatremia, acute kidney injury with creatinine 1.51. Patient admitted for further management. Cardiology and general surgery was consulted. Gen. surgery not recommending any further interventions for decubitus ulcer. Elevated inflammatory markers. ID consulted. From cardiology standpoint, patient is now stable. Echocardiogram report reviewed, shows normal systolic function, mild mitral regurgitation, and mild to moderate TR. Pertinent imaging: Lower extremity venous Doppler does not show any evidence of DVT Subjective: Patient seen and examined at bedside. Per nursing, patient having purulent discharge from the wound. He claims that shortness of breath is improved. Pertinent positives and negatives as discussed above, a complete review of s ystems was performed and all other systems are negative. Vitals Signs Reviewed. General: nontoxic, no distress, appears at stated age Derm: warm, dry, sacral wound not observed, Head: atraumatic, normocephalic, symmetric Eyes: EOMI, no lid lag, anicteric sclera Mouth: no lip lesion, mucus membranes moist Cardiovascular: S1S2 reg, no murmur Lungs: CTA bilateral, no rhonchi, no rales , no accessory muscle use, supplemental oxygen Abdominal: soft, nontender to palpation, no guarding, no appreciable organomegaly Ext: no gross muscle atrophy, no edema, no contractures Neuro: CN II-XI grossly intact, right-sided weakness, chronic Psych: Alert, oriented, appropriate affect Data Reviewed Today: Pertinent Labs: WBC 13.6, hemoglobin 10, sodium 129, potassium hemolyzed at 5.5, creatinine 1.02, blood sugars range 5135-180 Assessment and Plan: Blood cultures no growth to date Active: Sepsis secondary to left-sided pneumonia versus sacral decubitus ulcer present on admission Permanent A. fib, rate controlled Mild hyponatremia Normocytic anemia -Elevated inflammatory markers -Patient currently on azithromycin and ceftriaxone for pneumonia -Surgery had evaluated the patient, not recommending interventions - wound care was also consulted, recommendations with stage III decubitus sacral ulcer -ID consulted, pending further recommendations -Blood cultures negative so far -Cardiology following, patient stable from this standpoint -Hyponatremia possibly hypovolemic versus euvolemic, remains stable -No active signs of bleeding Resolved: A. fib with RVR Acute septic encephalopathy Hypoglycemia Acute kidney injury Chronic: History of stroke with right-sided deficits, wheelchair-bound Hypertension Tremors Depression DVT ppx: Eliquis Code status: Full code Anticipated discharge place: Back to [facility] Anticipated discharge time: In 1-2 days Objective - Vital Signs Vital signs: Vital Signs Temp 97.7 F 09/12/22 08:47 Pulse 60 09/12/22 11:28 Resp 17 09/12/22 11:28 BP 119/75 09/12/22 11:28 Pulse Ox 94 L 09/12/22 11:45 FiO2 Intake & Output 09/11/22 09/12/22 09/12/22 18:59 06:59 18:59 Intake Total 834 480 120 Output Total 1150 1250 600 Balance -316 -770 -480 Weight 128 kg Intake: Oral 834 480 120 Output: Urine 1150 1250 600 Other: Voiding Method Diaper Diaper Diaper External Catheter External Catheter External Catheter # Bowel Movements 1 1 - Labs CBC & Chem 7: 09/12/22 07:41 09/12/22 07:41 Labs: Abnormal Lab Results - Last 24 Hours (Table) 09/11/22 09/11/22 09/11/22 Range/Units 07:00 16:29 20:04 WBC (3.8-10.6) k/uL RBC (4.30-5.90) m/uL Hgb (13.0-17.5) gm/dL Hct (39.0-53.0) % Neutrophils # (1.3-7.7) k/uL Sodium (137-145) mmol/L Potassium (3.5-5.1) mmol/L BUN (9-20) mg/dL Glucose (74-99) mg/dL POC Glucose (mg/dL) 193 H 175 H (70-110) mg/dL Calcium (8.4-10.2) mg/dL Procalcitonin 0.26 H (0.02-0.09) ng/mL 09/12/22 09/12/22 09/12/22 Range/Units 06:01 07:41 07:41 WBC 13.6 H (3.8-10.6) k/uL RBC 3.28 L (4.30-5.90) m/uL Hgb 10.0 L (13.0-17.5) gm/dL Hct 30.8 L (39.0-53.0) % Neutrophils # 11.1 H (1.3-7.7) k/uL Sodium 129 L (137-145) mmol/L Potassium 5.5 H (3.5-5.1) mmol/L BUN 34 H (9-20) mg/dL Glucose 138 H (74-99) mg/dL POC Glucose (mg/dL) 135 H (70-110) mg/dL Calcium 8.2 L (8.4-10.2) mg/dL Procalcitonin (0.02-0.09) ng/mL 09/12/22 Range/Units 11:44 WBC (3.8-10.6) k/uL RBC (4.30-5.90) m/uL Hgb (13.0-17.5) gm/dL Hct (39.0-53.0) % Neutrophils # (1.3-7.7) k/uL Sodium (137-145) mmol/L Potassium (3.5-5.1) mmol/L BUN (9-20) mg/dL Glucose (74-99) mg/dL POC Glucose (mg/dL) 180 H (70-110) mg/dL Calcium (8.4-10.2) mg/dL Procalcitonin (0.02-0.09) ng/mL Microbiology - Last 24 Hours (Table) 09/07/22 15:11 Blood Culture - Preliminary Blood No Growth after 96 hours 09/07/22 15:11 Blood Culture - Preliminary Blood No Growth after 96 hours
--- NOTE | 2022-09-12 15:49 | P.PN ---
Subjective Progress Note Date: 09/12/22 Principal diagnosis: Sacral pressure ulcer and possible pneumonia Patient is a 76-year-old male with a past medical history taken for CVA TIA hyperlipidemia and angina history of A-fib patient has been brought into the ER for evaluation of confusion and fever and apparently patient was noticed to have unstageable ulcer of the sacral area and some drainage, patient has been evaluated by general surgical recommended no surgical debridement wound care saw patient recommending floresita, On today's evaluation and that is 09/12/2022, the patient denies having any fever or chills, the patient is breathing comfortably on room air, denies any chest pain shortness breath occasional cough no abdominal pain or any worsening pain to the sacral wound area Objective - Vital Signs Vital signs: Vital Signs Temp 97.7 F 09/12/22 08:47 Pulse 79 09/12/22 15:17 Resp 15 09/12/22 15:17 BP 127/70 09/12/22 15:17 Pulse Ox 95 09/12/22 15:17 FiO2 Intake & Output 09/11/22 09/12/22 09/12/22 18:59 06:59 18:59 Intake Total 834 480 240 Output Total 1150 1250 600 Balance -316 -770 -360 Weight 128 kg Intake: Oral 834 480 240 Output: Urine 1150 1250 600 Other: Voiding Method Diaper Diaper Diaper External Catheter External Catheter External Catheter # Bowel Movements 1 1 - Exam GENERAL DESCRIPTION: An elderly male lying in bed in no distress RESPIRATORY SYSTEM: Unlabored breathing , decreased breath sounds at bases HEART: S1 S2 regular rate and rhythm , ABDOMEN: Soft , no tenderness Patient did have a stage III sacral pressure ulcer with some slough tissue bilateral gluteal stage III pressure ulcer with less slough tissue no significant surrounding redness or foul-smelling drainage - Labs CBC & Chem 7: 09/12/22 07:41 09/12/22 07:41 Labs: Abnormal Lab Results - Last 24 Hours (Table) 09/11/22 09/11/22 09/12/22 Range/Units 16:29 20:04 06:01 WBC (3.8-10.6) k/uL RBC (4.30-5.90) m/uL Hgb (13.0-17.5) gm/dL Hct (39.0-53.0) % Neutrophils # (1.3-7.7) k/uL Sodium (137-145) mmol/L Potassium (3.5-5.1) mmol/L BUN (9-20) mg/dL Glucose (74-99) mg/dL POC Glucose (mg/dL) 193 H 175 H 135 H (70-110) mg/dL Calcium (8.4-10.2) mg/dL 09/12/22 09/12/22 09/12/22 Range/Units 07:41 07:41 11:44 WBC 13.6 H (3.8-10.6) k/uL RBC 3.28 L (4.30-5.90) m/uL Hgb 10.0 L (13.0-17.5) gm/dL Hct 30.8 L (39.0-53.0) % Neutrophils # 11.1 H (1.3-7.7) k/uL Sodium 129 L (137-145) mmol/L Potassium 5.5 H (3.5-5.1) mmol/L BUN 34 H (9-20) mg/dL Glucose 138 H (74-99) mg/dL POC Glucose (mg/dL) 180 H (70-110) mg/dL Calcium 8.2 L (8.4-10.2) mg/dL Microbiology - Last 24 Hours (Table) 09/07/22 15:11 Blood Culture - Preliminary Blood No Growth after 96 hours 09/07/22 15:11 Blood Culture - Preliminary Blood No Growth after 96 hours Assessment and Plan (1) Pneumonia Current Visit: Yes Status: Acute Code(s): J18.9 - PNEUMONIA, UNSPECIFIED ORGANISM SNOMED Code(s): 220847212 (2) Pressure ulcer of sacral region, stage 3 Current Visit: Yes Status: Acute Code(s): L89.153 - PRESSURE ULCER OF SACRAL REGION, STAGE 3 SNOMED Code(s): 48347220593557 Plan: 1patient presented to hospital with fever patient also has some shortness of breath and a left lower lobe infiltrate concerning for possible pneumonia patient did have stage III sacral pressure ulcer with some slough tissue and bilateral gluteal pressure ulcer with left slough tissue no significant redness or foul-smelling drainage was noticed local wound care to continue with medahoney followed by moist dressing daily of the pressure 2Patient to continue with the Rocephin and Zithromax, while waiting for the CRP and a pro-calcitonin Time with Patient: Less than 30
[2022-09-12 16:39] LABS: Glucose,Whole Blood 184 mg/dL (70-110)
[2022-09-12 20:10] LABS: Glucose,Whole Blood 181 mg/dL (70-110)
[2022-09-12] MEDS: AZITHROMYCIN 500 MG in SODIUM CHLORIDE 0.9% 250 ML IVPB SCH (20:15)
[2022-09-12] MEDS: TAMSULOSIN 0.4 MG CAP.ER.24H PO SCH (20:16)
[2022-09-12] MEDS: ATORVASTATIN 40 MG TAB PO SCH (20:16)
[2022-09-12] MEDS: MELATONIN 5 MG TABLET PO SCH (20:16)
[2022-09-12] MEDS: SENNOSIDES 8.6 MG TAB PO SCH (20:16)
[2022-09-12] MEDS: PARoxetine 10 MG TAB PO SCH (20:16)
[2022-09-12] MEDS: PRIMIDONE 50 MG TAB PO SCH (20:16)
[2022-09-12] MEDS: PANTOPRAZOLE 40 MG TABLET PO SCH (20:16)
[2022-09-12] MEDS: LATANOPROST 0.005% OPHTH DROPS 2.5 ML BTL LEFT EYE SCH (20:17)
[2022-09-13 02:05] LABS: Glucose,Whole Blood 128 mg/dL (70-110)
[2022-09-13] MEDS: HYDROcodone/APAP 5-325MG 1 EACH TAB PO SCH ×3 (02:54→14:29)
[2022-09-13 06:09] LABS: Glucose,Whole Blood 136 mg/dL (70-110)
[2022-09-13] MEDS: INSULIN ASPART (NovoLOG) 100 UNIT/ML VIAL SQ SCH ×2 (06:12→12:08)
[2022-09-13] MEDS: GABAPENTIN 400 MG CAP PO SCH ×2 (06:25→12:08)
[2022-09-13 07:12] LABS: HGB 10.2 gm/dL (13.0-17.5); MCH 30.4 pg (25.0-35.0); MCHC 32.9 g/dL (31.0-37.0); MCV 92.4 fL (80.0-100.0); Mean Platelet Volume 10.3; Platelet Count 281 k/uL (150-450); RBC 3.35 m/uL (4.30-5.90); RDW 15.4 % (11.5-15.5); WBC 11.6 k/uL (3.8-10.6)
[2022-09-13 07:16] LABS: Calcium 8.6 mg/dL (8.4-10.2); Potassium 4.9 mmol/L (3.5-5.1)
[2022-09-13 07:57] LABS: Band Neutrophils % 5 %; Eosinophils # (M) 0.23 k/uL (0-0.7); Lymphocytes # (M) 1.04 k/uL (1.0-4.8); Metamyelocytes # (M) 0.35 k/uL (0); Metamyelocytes % 3 %; Monocytes # (M) 1.16 k/uL (0-1.0); Myelocytes # (M) 0.35 k/uL (0); Myelocytes % 3 %; Neutrophils % (M) 68 %; Nucleated Red Blood Cells 0 /100 WBC (0-0); Total Cells Counted 100
[2022-09-13] MEDS: polyethylene glycoL 3350 17 GM POWD.PACK PO SCH (08:01)
[2022-09-13] MEDS: RANOLAZINE 500 MG TAB.ER.12H PO SCH (08:05)
[2022-09-13] MEDS: POTASSIUM CHLORIDE ER 20 MEQ TAB.ER PO SCH (08:05)
[2022-09-13] MEDS: ISOSORBIDE MONONITRATE ER 30 MG TAB.ER.24H PO SCH (08:05)
[2022-09-13] MEDS: DOCUSATE 100 MG CAP PO SCH (08:05)
[2022-09-13] MEDS: MULTIVITAMINS, THERA 1 EACH TAB PO SCH (08:05)
[2022-09-13] MEDS: METOPROLOL TARTRATE 50 MG TAB PO SCH (08:05)
[2022-09-13] MEDS: APIXABAN 5 MG TAB PO SCH (08:05)
[2022-09-13] MEDS: CHOLECALCIFEROL 25 MCG (1000 IU) TABLET PO SCH (08:06)
[2022-09-13 08:11] VITALS: RESP 20; TEMP 97.4
[2022-09-13 11:31] VITALS: BP 118/75; PULSE 82
[2022-09-13 11:40] LABS: Glucose,Whole Blood 187 mg/dL (70-110)
--- NOTE | 2022-09-13 12:24 | P.DS ---
Providers Date of admission: 09/07/22 18:14 Expected date of discharge: 09/13/22 Attending physician: Lizz Camacho DO Consults: 09/08/22 08:25 Consult Physician Routine Consulting Provider: Daniel Valles Consult Reason/Comments: unstageable decub ulcer Do you want consulting provider notified?: Already Contacted 09/11/22 09:23 Consult Physician Routine Consulting Provider: Charlene Colin Consult Reason/Comments: purulent poccyx pressure ulcer Do you want consulting provider notified?: Yes Primary care physician: Nabila Chowdhury DO Hospital Course: Discharge Diagnosis: Sepsis secondary to left-sided pneumonia sacral decubitus ulcer present on admission Permanent A. fib with RVR Acute septic encephalopathy Hypoglycemia Acute kidney injury Mild hyponatremia Normocytic anemia Hospital Course: 76-year-old male with history of prior stroke with right-sided deficit, wheelchair-bound, atrial fibrillation on Eliquis, diabetes, hypertension presen ting with sepsis secondary to pneumonia, A. fib RVR. He is also encephalopathic initially on presentation, and found to have unstageable ulcer over the coccyx. On presentation, patient was febrile and tachycardic. Lab work showed leukocytosis, mild hyponatremia, acute kidney injury with creatinine 1.51. Patient admitted for further management. Cardiology and general surgery was consulted. Gen. surgery not recommending any further interventions for decubitus ulcer. Elevated inflammatory markers. ID consulted. Unlikely to be infected wound. From cardiology standpoint, patient is now stable. Echocardiogram report reviewed, shows normal systolic function, mild mitral regurgitation, and mild to moderate TR. Heart rate under control. Patient to return discharged on oral antibiotics for pneumonia. Patient seen and examined at bedside. Vital signs reviewed and stable. General: nontoxic, no distress, appears at stated age Derm: warm, dry, sacral wound not observed, Head: atraumatic, normocephalic, symmetric Eyes: EOMI, no lid lag, anicteric sclera Mouth: no lip lesion, mucus membranes moist Cardiovascular: S1S2 irreg, no murmur Lungs: CTA bilateral, no rhonchi, no rales , no accessory muscle use, supplemental oxygen Abdominal: soft, nontender to palpation, no guarding, no appreciable organomegaly Ext: no gross muscle atrophy, no edema, no contractures Neuro: CN II-XI grossly intact, right-sided weakness, chronic Psych: Alert, oriented, appropriate affect A total of 37 minutes of time were spent preparing this complex discharge summary. Patient was discharged on 09/13/22 at 12:21. Patient Condition at Discharge: Stable Plan - Discharge Summary Discharge Rx Participant: No New Discharge Prescriptions: New cefUROXime axetiL [Ceftin] 500 mg PO BID 7 Days #14 tab Continue Cholecalciferol [Vitamin D3 (25 Mcg = 1000 Iu)] 25 mcg PO DAILY Sennosides [Senokot] 8.6 mg PO HS polyethylene glycoL 3350 [Miralax] 17 gm PO DAILY PARoxetine [Paxil] 10 mg PO HS Omeprazole 20 mg PO HS Tamsulosin [Flomax] 0.4 mg PO HS Nitroglycerin Sl Tabs [Nitrostat] 0.4 mg SL Q5M PRN PRN Reason: Chest Pain Apixaban [Eliquis] 5 mg PO BID Multivitamins, Thera [Multivitamin (formulary)] 1 tab PO DAILY Docusate [Colace] 100 mg PO BID glipiZIDE XL [Glucotrol XL] 10 mg PO DAILY@0600 HYDROcodone/APAP 5-325MG [[place] 5-325] 1 tab PO Q6H Artificial Tears-Hypromellose [Artificial Tear Drops] 1 drops BOTH EYES TID PRN PRN Reason: Dry Eye(S) Sennosides [Senokot] 17.2 mg PO DAILY Primidone [Mysoline] 50 mg PO HS Potassium Chloride ER [K-Dur 20] 20 meq PO BID Latanoprost/Pf [Latanoprost 0.005% Eye Drop] 1 drop LEFT EYE HS Metoprolol Tartrate [Lopressor] 25 mg PO BID #0 Atorvastatin [Lipitor] 40 mg PO HS Gabapentin [Neurontin] 400 mg PO TID@0700,1300,1900 Isosorbide Mononitrate ER [Imdur] 30 mg PO DAILY #30 tab Acetaminophen Tab [Tylenol] 1,000 mg PO BID PRN PRN Reason: Pain glipiZIDE XL [Glucotrol XL] 5 mg PO DAILY@1400 Ranolazine [Ranexa] 500 mg PO BID Discontinued Baclofen 5 mg PO DAILY PRN PRN Reason: Muscle Pain Discharge Medication List Artificial Tears-Hypromellose [Artificial Tear Drops] 1 drops BOTH EYES TID PRN 01/17/22 [History] Cholecalciferol [Vitamin D3 (25 Mcg = 1000 Iu)] 25 mcg PO DAILY 01/17/22 [History] Latanoprost/Pf [Latanoprost 0.005% Eye Drop] 1 drop LEFT EYE HS 01/17/22 [History] Omeprazole 20 mg PO HS 01/17/22 [History] PARoxetine [Paxil] 10 mg PO HS 01/17/22 [History] Potassium Chloride ER [K-Dur 20] 20 meq PO BID 01/17/22 [History] Primidone [Mysoline] 50 mg PO HS 01/17/22 [History] Sennosides [Senokot] 8.6 mg PO HS 01/17/22 [History] Sennosides [Senokot] 17.2 mg PO DAILY 01/17/22 [History] Tamsulosin [Flomax] 0.4 mg PO HS 01/17/22 [History] polyethylene glycoL 3350 [Miralax] 17 gm PO DAILY 01/17/22 [History] Metoprolol Tartrate [Lopressor] 25 mg PO BID #0 01/19/22 [Rx] Atorvastatin [Lipitor] 40 mg PO HS 03/01/22 [History] Nitroglycerin Sl Tabs [Nitrostat] 0.4 mg SL Q5M PRN 03/01/22 [History] Apixaban [Eliquis] 5 mg PO BID 08/04/22 [History] Gabapentin [Neurontin] 400 mg PO TID@0700,1300,1900 08/04/22 [History] Multivitamins, Thera [Multivitamin (formulary)] 1 tab PO DAILY 08/04/22 [History] Isosorbide Mononitrate ER [Imdur] 30 mg PO DAILY #30 tab 08/12/22 [Rx] Acetaminophen Tab [Tylenol] 1,000 mg PO BID PRN 09/07/22 [History] Docusate [Colace] 100 mg PO BID 09/07/22 [History] HYDROcodone/APAP 5-325MG [[place] 5-325] 1 tab PO Q6H 09/07/22 [History] Ranolazine [Ranexa] 500 mg PO BID 09/07/22 [History] glipiZIDE XL [Glucotrol XL] 5 mg PO DAILY@1400 09/07/22 [History] glipiZIDE XL [Glucotrol XL] 10 mg PO DAILY@0600 09/07/22 [History] cefUROXime axetiL [Ceftin] 500 mg PO BID 7 Days #14 tab 09/13/22 [Rx] Follow up Appointment(s)/Referral(s): Nabila Chowdhury DO [Primary Care Provider] - 1-2 days [facility] [NON-STAFF] - 1 Week Patient Instructions/Handouts: Bacterial Pneumonia (DC) Activity/Diet/Wound Care/Special Instructions: Stage III pressure ulcer sacrum - Apply honey alginate to the ulceration saline moistened gauze, dry gauze, sacral border foam. Change Tuesday. Patient would benefit from weekly debridements. Discharge Disposition: TRANSFER TO SNF/ECF
== END 2022-09-13 15:35 | DRG 871 ==
LOC: EC 14:47 → 3SCARD 18:14
PROVIDERS: ADMIT Internal Medicine; ATTEND Internal Medicine
DX: A41.89 Other specified sepsis (principal); G92.8 Other toxic encephalopathy; I48.21 Permanent atrial fibrillation; N17.9 Acute kidney failure, unspecified; E87.1 Hypo-osmolality and hyponatremia; I69.351 Hemiplegia and hemiparesis following cerebral infarction affecting right dominant side; J44.0 Chronic obstructive pulmonary disease with (acute) lower respiratory infection; R65.20 Severe sepsis without septic shock; L89.150 Pressure ulcer of sacral region, unstageable; E11.649 Type 2 diabetes mellitus with hypoglycemia without coma; I13.10 Hypertensive heart and chronic kidney disease without heart failure, with stage 1 through stage 4 chronic kidney disease, or unspecified chronic kidney disease; E11.22 Type 2 diabetes mellitus with diabetic chronic kidney disease; D64.9 Anemia, unspecified; N18.9 Chronic kidney disease, unspecified; F32.A Depression, unspecified; E78.5 Hyperlipidemia, unspecified; R01.1 Cardiac murmur, unspecified; Z20.822 Contact with and (suspected) exposure to COVID-19; Z74.01 Bed confinement status; Z79.899 Other long term (current) drug therapy; Z79.84 Long term (current) use of oral hypoglycemic drugs; Z79.891 Long term (current) use of opiate analgesic; Z79.01 Long term (current) use of anticoagulants; Z99.3 Dependence on wheelchair; Z28.310 Unvaccinated for COVID-19
CPT/HCPCS: 36410; 36415; 71045; 76937; 80048; 80053; 80202; 81001; 83605; 83735; 84100; 84145; 85025; 85379; 85652; 86140; 87040; 87636; 93005; 93306; 94760; 96365; 96366; 96367; 96368; 99291

== ENCOUNTER 2023-01-06 05:44 | Inpatient (IN) | payer MEDICARE, OTHER ==
[2023-01-06 05:58] LABS: Glucose,Whole Blood 129 mg/dL (70-110)
--- NOTE | 2023-01-06 06:09 | ED ---
General Adult HPI - General Chief complaint: Neuro Symptoms/Deficit Stated complaint: Stroke Time Seen by Provider: 01/06/23 05:50 Source: EMS Mode of arrival: EMS Limitations: altered mental status, physical limitation - History of Present Illness Initial comments: 77-year-old male with past medical history of CVA with right-sided hemiparesis who presents to the emergency department from [facility]. He presents for possible stroke. Staff provide history and states that the patient was last seen well around 12 AM. Patient awoke at 4 am with complete aphasia. Patient was not following any commands. They state that he is normally a and O 4 without any speech deficits. He does take Eliquis for A. fib. They deny any trauma. Patient does not follow any commands and does not answer any questions and therefore the HPI is limited - Related Data Home Medications Medication Instructions Recorded Confirmed Cholecalciferol [Vitamin D3 (25 25 mcg PO DAILY 01/17/22 01/06/23 Mcg = 1000 Iu)] Latanoprost/Pf [Latanoprost 0.005% 1 drop LEFT EYE HS 01/17/22 01/06/23 Eye Drop] Omeprazole 20 mg PO HS 01/17/22 01/06/23 PARoxetine [Paxil] 10 mg PO HS 01/17/22 01/06/23 Potassium Chloride ER [K-Dur 20] 20 meq PO DAILY 01/17/22 01/06/23 Primidone [Mysoline] 50 mg PO HS 01/17/22 01/06/23 Sennosides [Senokot] 8.6 mg PO HS 01/17/22 01/06/23 Sennosides [Senokot] 17.2 mg PO DAILY 01/17/22 01/06/23 Tamsulosin [Flomax] 0.4 mg PO HS 01/17/22 01/06/23 polyethylene glycoL 3350 [Miralax] 17 gm PO DAILY 01/17/22 01/06/23 Atorvastatin [Lipitor] 40 mg PO HS 03/01/22 01/06/23 Nitroglycerin Sl Tabs [Nitrostat] 0.4 mg SL Q5M PRN 03/01/22 01/06/23 Apixaban [Eliquis] 5 mg PO BID 08/04/22 01/06/23 Multivitamins, Thera [Multivitamin 1 tab PO DAILY 08/04/22 01/06/23 (formulary)] Acetaminophen Tab [Tylenol] 1,000 mg PO BID PRN 09/07/22 01/06/23 Docusate [Colace] 100 mg PO BID@0700,1600 09/07/22 01/06/23 Ranolazine [Ranexa] 500 mg PO BID 09/07/22 01/06/23 glipiZIDE XL [Glucotrol XL] 5 mg PO DAILY@1400 09/07/22 01/06/23 glipiZIDE XL [Glucotrol XL] 10 mg PO DAILY@0600 09/07/22 01/06/23 Baclofen 10 mg PO TID@0700,1300,1900 01/06/23 01/06/23 Bumetanide [BUMEX] 2 mg PO BID 01/06/23 01/06/23 Hydrocortisone 1% Lotion 1 applic TOPICAL BID 01/06/23 01/06/23 Menthol [Biofreeze] 1 applic TOPICAL Q8H PRN 01/06/23 01/06/23 Menthol [Biofreeze] 1 applic TOPICAL QID 01/06/23 01/06/23 Metoprolol Tartrate [Lopressor] 25 mg PO BID@0700,1600 01/06/23 01/06/23 lisinopriL [Zestril] 5 mg PO DAILY 01/06/23 01/06/23 Previous Rx's Medication Instructions Recorded Isosorbide Mononitrate ER [Imdur] 30 mg PO DAILY #30 tab 08/12/22 Gabapentin [Neurontin] 400 mg PO TID@0700,1300,1900 #10 09/13/22 cap HYDROcodone/APAP 5-325MG [[place] 1 tab PO Q6H #7 tab 09/13/22 5-325] Allergies Allergy/AdvReac Type Severity Reaction Status Date / Time No Known Allergies Allergy Verified 01/06/23 06:51 Review of Systems ROS Statement: Those systems with pertinent positive or pertinent negative responses have been documented in the HPI. ROS Other: All systems not noted in ROS Statement are negative. Past Medical History Past Medical History: Chest Pain / Angina, CVA/TIA, Hyperlipidemia History of Any Multi-Drug Resistant Organisms: None Reported Past Surgical History: Appendectomy, Orthopedic Surgery Past Anesthesia/Blood Transfusion Reactions: No Reported Reaction Past Psychological History: No Psychological Hx Reported, Depression Smoking Status: Never smoker Past Alcohol Use History: None Reported Past Drug Use History: None Reported General Exam Limitations: altered mental status, physical limitation General appearance: alert, in no apparent distress Head exam: Present: atraumatic, normocephalic, normal inspection Eye exam: Present: normal appearance, PERRL, EOMI. Absent: scleral icterus, conjunctival injection, periorbital swelling Neck exam: Present: normal inspection. Absent: tenderness, meningismus, lymphadenopathy Respiratory exam: Present: normal lung sounds bilaterally. Absent: respiratory distress, wheezes, rales, rhonchi, stridor Cardiovascular Exam: Present: regular rate, normal rhythm, normal heart sounds. Absent: systolic murmur, diastolic murmur, rubs, gallop, clicks GI/Abdominal exam: Present: soft, normal bowel sounds. Absent: distended, tenderness, guarding, rebound, rigid Extremities exam: Present: other (Contracture to the right upper extremity. Patient has 1 out of 5 strength of the left upper and lower extremity) Neurological exam: Present: other (Patient remains with his eyes open. No deviation. He does not follow any commands. Chronic weakness to the right side however patient does not appear to have any strength in his left upper or lower extremity against gravity. No facial droop. patient is nonverbal) Psychiatric exam: Present: flat affect Skin exam: Present: warm, dry, intact, normal color. Absent: rash Course Vital Signs 01/06/23 01/06/23 05:50 07:33 Temperature 97.3 F L Pulse Rate 75 62 Respiratory 18 18 Rate Blood Pressure 146/71 157/81 O2 Sat by Pulse 96 98 Oximetry Medical Decision Making - Medical Decision Making Was pt. sent in by a medical professional or institution (, PA, HOST/HOSTESS RESTAURANT, urgent ca re, hospital, or detention...) When possible be specific @ -[facility] Did you speak to anyone other than the patient for history (EMS, parent, family, police, friend...)? What history was obtained from this source @ -EMS provide history Did you review nursing and triage notes (agree or disagree)? Why? @ -I reviewed and agree with nursing and triage notes Were old charts reviewed (outside hosp., previous admission, EMS record, old EKG, old radiological studies, urgent care reports/EKG's, detention records)? Report findings @ -No old charts were reviewed Differential Diagnosis (chest pain, altered mental status, abdominal pain women, abdominal pain men, vaginal bleeding, weakness, fever, dyspnea, syncope, headache, dizziness, GI bleed, back pain, seizure, CVA, palpatations, mental health, musculoskeletal)? @ -Differential CVA Ischemic stroke, hemorrhagic stroke, brain tumor, atypical migraine, Wernicke's encephalopathy, seizure, multiple sclerosis, meningitis, encephalitis, hypoglycemia, Guillain-Signleton, electrolytes disturbance, myasthenia gravis.... This is not meant to be an all-inclusive list EKG interpreted by me (3pts min.). @ -Yes and demonstrates A. fib with a rate of 56. QRS 95. QTC of 419. No high degree block. No acute ST segment elevations X-rays interpreted by me (1pt min.). @ -Yes and demonstrates mild poor vascular congestion CT interpreted by me (1pt min.). @ -Yes and demonstrates no acute intracranial process. Old CVA demonstrated U/S interpreted by me (1pt. min.). @ -None done What testing was considered but not performed or refused? (CT, X-rays, U/S, labs)? Why? @ -None What meds were considered but not given or refused? Why? @ -Alteplase, however patient has had symptoms for approximately 5 hours before hospital arrival Did you discuss the management of the patient with other professionals (professionals i.e. , PA, HOST/HOSTESS RESTAURANT, lab, RT, psych nurse, social science instructor, mechanic foreman, teacher, ethics officer, counseling case manager)? Give summary @ -Spoke with Dr. Robbins from neurology and Dr. Luis who will admit the patient Was smoking cessation discussed for >3mins.? @ -No Was critical care preformed (if so, how long)? @ -Yes, 40 minutes for code stroke activation Were there social determinants of health that impacted care today? How? (Homelessness, low income, unemployed, alcoholism, drug addiction, transportati on, low edu. Level, literacy, decrease access to med. care, usp, rehab)? @ -No Was there de-escalation of care discussed even if they declined (Discuss DNR or withdrawal of care, Hospice)? DNR status @ -No What co-morbidities impacted this encounter? (DM, HTN, Smoking, COPD, CAD, Cancer, CVA, ARF, Chemo, Hep., AIDS, mental health diagnosis, sleep apnea, morbid obesity)? @ -Previous CVA, diabetes mellitus Was patient admitted / discharged? Hospital course, mention meds given and ro stebbins, prescriptions, significant lab abnormalities, going to OR and other pertinent info. @ -Upon arrival patient is evaluated in the hallway. Patient is mute and does not follow any commands. NIH is assessed and the patient scores 30 points. He is on anticoagulation. He is sent for a CT of his head as well as CT angiography of his head and neck. Imaging is reviewed by myself and also with Dr. Robbins. No hemorrhage, acute occlusion appreciated. Upon reevaluation the patient has had spontaneous resolution of his symptoms approximately 18 minutes into his ER stay. He is given a full dose aspirin. Recommended admission for neurology consultation for which the patient was agreeable. He is currently awaiting a bed on the floor in stable condition Undiagnosed new problem with uncertain prognosis? @ -Yes Drug Therapy requiring intensive monitoring for toxicity (Heparin, Nitro, Insulin, Cardizem)? @ -No Were any procedures done? @ -No Diagnosis/symptom? @ -Acute aphasia, suspected TIA, history of CVA with chronic right-sided deficits Acute, or Chronic, or Acute on Chronic? @ -Acute Uncomplicated (without systemic symptoms) or Complicated (systemic symptoms)? @ -Complicated Side effects of treatment? @ -No Exacerbation, Progression, or Severe Exacerbation? @ -No Poses a threat to life or bodily function? How? (Chest pain, [place], [place], pneumonia, PE, COPD, DKA, ARF, appy, cholecystitis, CVA, Diverticulitis, Homicidal, Suicidal, threat to staff... and all critical care pts) @ -yes patient presents with alteration in his mental status - Lab Data Result diagrams: 01/06/23 06:08 01/06/23 06:08 Lab Results 01/06/23 01/06/23 01/06/23 Range/Units 05:55 06:08 06:08 WBC 10.2 (3.8-10.6) k/uL RBC 3.91 L (4.30-5.90) m/uL Hgb 11.7 L (13.0-17.5) gm/dL Hct 36.6 L (39.0-53.0) % MCV 93.7 (80.0-100.0) fL MCH 30.0 (25.0-35.0) pg MCHC 32.0 (31.0-37.0) g/dL RDW 15.1 (11.5-15.5) % Plt Count 209 (150-450) k/uL MPV 10.3 Neutrophils % 70 % Lymphocytes % 17 % Monocytes % 5 % Eosinophils % 7 % Basophils % 0 % Neutrophils # 7.1 (1.3-7.7) k/uL Lymphocytes # 1.7 (1.0-4.8) k/uL Monocytes # 0.5 (0-1.0) k/uL Eosinophils # 0.7 (0-0.7) k/uL Basophils # 0.0 (0-0.2) k/uL PT 11.4 (9.0-12.0) sec INR 1.1 (<1.2) APTT 25.1 (22.0-30.0) sec Sodium (137-145) mmol/L Potassium (3.5-5.1) mmol/L Chloride (98-107) mmol/L Carbon Dioxide (22-30) mmol/L Anion Gap mmol/L BUN (9-20) mg/dL Creatinine (0.66-1.25) mg/dL Est GFR (CKD-EPI)AfAm (>60 ml/min/1.73 sqM) Est GFR (CKD-EPI)NonAf (>60 ml/min/1.73 sqM) Glucose (74-99) mg/dL POC Glucose (mg/dL) 129 H (70-110) mg/dL POC Glu Oxyhydrogen Welder ID Lyles, Yane Calcium (8.4-10.2) mg/dL Total Bilirubin (0.2-1.3) mg/dL AST (17-59) U/L ALT (4-49) U/L Alkaline Phosphatase (38-126) U/L Creatine Kinase (55-170) U/L Troponin I (0.000-0.034) ng/mL Total Protein (6.3-8.2) g/dL Albumin (3.5-5.0) g/dL 01/06/23 01/06/23 Range/Units 06:08 06:08 WBC (3.8-10.6) k/uL RBC (4.30-5.90) m/uL Hgb (13.0-17.5) gm/dL Hct (39.0-53.0) % MCV (80.0-100.0) fL MCH (25.0-35.0) pg MCHC (31.0-37.0) g/dL RDW (11.5-15.5) % Plt Count (150-450) k/uL MPV Neutrophils % % Lymphocytes % % Monocytes % % Eosinophils % % Basophils % % Neutrophils # (1.3-7.7) k/uL Lymphocytes # (1.0-4.8) k/uL Monocytes # (0-1.0) k/uL Eosinophils # (0-0.7) k/uL Basophils # (0-0.2) k/uL PT (9.0-12.0) sec INR (<1.2) APTT (22.0-30.0) sec Sodium 137 (137-145) mmol/L Potassium 4.2 (3.5-5.1) mmol/L Chloride 100 (98-107) mmol/L Carbon Dioxide 29 (22-30) mmol/L Anion Gap 8 mmol/L BUN 38 H (9-20) mg/dL Creatinine 1.53 H (0.66-1.25) mg/dL Est GFR (CKD-EPI)AfAm 49 (>60 ml/min/1.73 sqM) Est GFR (CKD-EPI)NonAf 43 (>60 ml/min/1.73 sqM) Glucose 129 H (74-99) mg/dL POC Glucose (mg/dL) (70-110) mg/dL POC Glu Oxyhydrogen Welder ID Calcium 8.9 (8.4-10.2) mg/dL Total Bilirubin 0.6 (0.2-1.3) mg/dL AST 27 (17-59) U/L ALT 26 (4-49) U/L Alkaline Phosphatase 81 (38-126) U/L Creatine Kinase 46 L (55-170) U/L Troponin I <0.012 (0.000-0.034) ng/mL Total Protein 8.1 (6.3-8.2) g/dL Albumin 3.6 (3.5-5.0) g/dL Disposition Clinical Impression: Aphasia, TIA (transient ischemic attack) Disposition: ADMITTED IP TO THIS [facility] Condition: Serious Is patient prescribed a controlled substance at d/c from ED?: No Time of Disposition: 06:44 Decision to Admit Reason: Admit from EC Decision Date: 01/06/23 Decision Time: 06:44
[2023-01-06 06:18] LABS: Basophils % (A) 0 %; Eosinophils # (A) 0.7 k/uL (0-0.7); Eosinophils % (A) 7 %; HCT 36.6 % (39.0-53.0); HGB 11.7 gm/dL (13.0-17.5); Lymphocytes # (A) 1.7 k/uL (1.0-4.8); Lymphocytes % (A) 17 %; MCV 93.7 fL (80.0-100.0); Mean Platelet Volume 10.3; Monocytes # (A) 0.5 k/uL (0-1.0); Monocytes % (A) 5 %; Neutrophils # (A) 7.1 k/uL (1.3-7.7); Neutrophils % (A) 70 %; Platelet Count 209 k/uL (150-450); RBC 3.91 m/uL (4.30-5.90); RDW 15.1 % (11.5-15.5); WBC 10.2 k/uL (3.8-10.6)
--- NOTE | 2023-01-06 06:21 | CT ---
EXAM: CT Head Without Intravenous Contrast CLINICAL HISTORY: ITS.REASON CT Reason: Neuro deficit, acute, stroke suspected TECHNIQUE: Axial computed tomography images of the head/brain without intravenous contrast. CTDI is 48.8 mGy and DLP is 1177 mGy-cm. This CT exam was performed using one or more of the following dose reduction techniques: automated exposure control, adjustment of the mA and/or kV according to patient size, and/or use of iterative reconstruction technique. Coronal and sagittal reformatted images were created and reviewed. 1750 images COMPARISON: No relevant prior studies available. FINDINGS: Brain: Moderate age-related generalized brain volume loss and chronic small vessel ischemic changes. No hemorrhage. Ventricles: Unremarkable. No ventriculomegaly. Bones/joints: Unremarkable. Soft tissues: Unremarkable. Sinuses: Unremarkable as visualized. No acute sinusitis. Mastoid air cells: Unremarkable as visualized. No mastoid effusion. Orbits: bilateral cataract surgeries. IMPRESSION: No acute intracranial findings. If acute intracranial infarction remains a concern, MRI may help to further evaluate if patient is a candidate.
--- NOTE | 2023-01-06 06:27 | CT ---
EXAM: CT Head With Intravenous Contrast CLINICAL HISTORY: ITS.REASON CT Reason: Neuro deficit, acute, stroke suspected TECHNIQUE: Axial computed tomographic images of the head with intravenous contrast. CTDI is 28.35 mGy and DLP is 381.5 mGy-cm. This CT exam was performed using one or more of the following dose reduction techniques: automated exposure control, adjustment of the mA and/or kV according to patient size, and/or use of iterative reconstruction technique. Coronal and sagittal reformatted images were created and reviewed. COMPARISON: No relevant prior studies available. FINDINGS: Right internal carotid artery: No acute findings. Intracranial segment is patent with no significant stenosis. No aneurysm. Right anterior cerebral artery: Unremarkable. No occlusion or significant stenosis. No aneurysm. Right middle cerebral artery: Unremarkable. No occlusion or significant stenosis. No aneurysm. Right posterior cerebral artery: Unremarkable. No occlusion or significant stenosis. No aneurysm. Right vertebral artery: Unremarkable as visualized. Left internal carotid artery: No acute findings. Intracranial segment is patent with no significant stenosis. No aneurysm. Left anterior cerebral artery: Unremarkable. No occlusion or significant stenosis. No aneurysm. Left middle cerebral artery: Unremarkable. No occlusion or significant stenosis. No aneurysm. Left posterior cerebral artery: Unremarkable. No occlusion or significant stenosis. No aneurysm. Left vertebral artery: Unremarkable as visualized. Basilar artery: Unremarkable. No occlusion or significant stenosis. No aneurysm. Other vasculature: Small amount of calcifications in cavernous portions of bilateral carotid arteries. IMPRESSION: No acute findings in the arteries of the head/brain. EXAM: CT Neck With Intravenous Contrast CLINICAL HISTORY: ITS.REASON CT Reason: Neuro deficit, acute, stroke suspected TECHNIQUE: Routine carotid CT protocol was performed with intravenous contrast. NASCET criteria using the distal ICAs for comparison were used for evaluation of stenoses. CTDI is 28.35 mGy and DLP is 381.5 mGy-cm. This CT exam was performed using one or more of the following dose reduction techniques: automated exposure control, adjustment of the mA and/or kV according to patient size, and/or use of iterative reconstruction technique. COMPARISON: 07/05/22, only images. Report is not available FINDINGS: VASCULATURE: Right common carotid artery: Unremarkable. No occlusion or significant stenosis. No dissection. Right internal carotid artery: Unremarkable. Right external carotid artery: Unremarkable. No occlusion. Right vertebral artery: Unremarkable. No occlusion or significant stenosis. No dissection. Left common carotid artery: Unremarkable. No occlusion or significant stenosis. No dissection. Left internal carotid artery: Unremarkable. Left external carotid artery: Unremarkable. No occlusion. Left vertebral artery: Unremarkable. No occlusion or significant stenosis. No dissection. Other vasculature: Small amount of atherosclerotic calcifications in the regions of bilateral carotid bulbs. NECK: Bones/joints: Osteopenia. Moderate degenerative disc disease, causing various degrees of spinal canal stenosis and neuroforaminal narrowing. Soft tissues: Unremarkable. Lung apices: Small amount of patchy groundglass opacities in the visualized lungs can be due to underinflation versus mild pulmonary edema. CAROTID STENOSIS REFERENCE USING NASCET CRITERIA: % ICA stenosis = (1 - narrowest ICA diameter/diameter of distal cervical ICA) x 100. Mild - <50% stenosis. Moderate - 50-69% stenosis. Severe - 70-94% stenosis. Near occlusion - 95-99% stenosis. Occluded - 100% stenosis. IMPRESSION: Bilateral carotid, vertebral, and subclavian arteries are patent. Small amount of patchy groundglass opacities in the visualized lungs can be due to underinflation versus mild pulmonary edema.
[2023-01-06 06:34] LABS: INR 1.1 (<1.2); Partial Thromboplastin Time 25.1 sec (22.0-30.0); Prothrombin Time 11.4 sec (9.0-12.0)
[2023-01-06 06:44] LABS: ALT 26 U/L (4-49); AST 27 U/L (17-59); African American GFR (CKD) 49 (>60 ml/min/1.73 sqM); Albumin 3.6 g/dL (3.5-5.0); Alkaline Phosphatase 81 U/L (38-126); Anion Gap 8 mmol/L; Blood Urea Nitrogen 38 mg/dL (9-20); Calcium 8.9 mg/dL (8.4-10.2); Carbon Dioxide 29 mmol/L (22-30); Chloride 100 mmol/L (98-107); Creatine Kinase 46 U/L (55-170); Glucose 129 mg/dL (74-99); Non-African American GFR(CKD) 43 (>60 ml/min/1.73 sqM); Sodium 137 mmol/L (137-145); Total Bilirubin 0.6 mg/dL (0.2-1.3); Total Protein 8.1 g/dL (6.3-8.2)
[2023-01-06 06:51] LABS: Potassium 4.2 mmol/L (3.5-5.1)
--- NOTE | 2023-01-06 07:01 | XR ---
EXAM: XR Chest, 1 View CLINICAL HISTORY: ITS.REASON XR Reason: altered mental status TECHNIQUE: Frontal view of the chest. COMPARISON: 09/07/22 FINDINGS: Lungs: Mild streaky densities in the lung bases. Overall increased perihilar interstitial lung markings which may reflect mild congestion. No dense consolidation. Pleural space: Unremarkable. No pneumothorax. Heart: Cardiovascular silhouette, upper limits of normal, likely accentuated by low lung volume and rotated position. Mediastinum: Prominent mediastinum, unchanged likely due to low lung volume and rotated position. Bones/joints: Unremarkable. IMPRESSION: 1. Possible mild congestion. 2. Low lung volume limit evaluation. 3. Probable mild bibasilar atelectasis
[2023-01-06] MEDS ORDERED: ASPIRIN 325 MG TAB PO STA ×2 (07:06→09:33)
--- NOTE | 2023-01-06 12:06 | P.CNNES ---
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 Some of the history is obtained from medical records. 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 He also noticed his left leg weakness started about 2 weeks ago but feels he is having hip pain and knee pain. He also feels that he his weakness over the right lower extremity has worsened. Per the ED note seems the patient resides in medical [facility] and presented because of the aphasia that started around 4 AM on 01/05/2023. Usually the patient is alert oriented 4 and has no speech deficit. The patient was having difficulty following commands. The patient is on eliquis. He feels this patient has improved. He cannot tell me what medication he was on. Currently he feels he is doing better from his speech perspective. Some other workup during this hospital visit consisted of: CT of the head is reported as no acute intracranial finding. If acute intracranial infarction remains a concern, MRI may help to further evaluate for patient is a candidate. Personally reviewed the CT of the head and there is no acute or subacute ischemia that's appreciable. She has had old lacunar stroke over bilateral basal ganglia left more than the right. CT angiography of the neck was reported as bilateral carotid, vertebral and subclavian arteries are patent. CT angiography of the head is reported as no acute finding and the arteries of the head/brain. Per the ED at attending note patient NIH stroke scale was a 30. Stroke code was activated. Seems the patient had resolution of symptoms 8 minutes into the ER stay. No IV TPA since resolution of symptoms as well as a patient is on anticoagulation and the risk outweigh the benefit. Review of Systems Review of system: The 12 point system was reviewed and pertinent positive and negative per HPI. Past Medical History Past Medical History: Chest Pain / Angina, CVA/TIA, Hyperlipidemia History of Any Multi-Drug Resistant Organisms: None Reported Past Surgical History: Appendectomy, Orthopedic Surgery Past Anesthesia/Blood Transfusion Reactions: No Reported Reaction Past Psychological History: No Psychological Hx Reported, Depression Smoking Status: Never smoker Past Alcohol Use History: None Reported Past Drug Use History: None Reported Medications and Allergies Home Medications Medication Instructions Recorded Confirmed Type Cholecalciferol [Vitamin D3 (25 25 mcg PO DAILY 01/17/22 01/06/23 History Mcg = 1000 Iu)] Latanoprost/Pf [Latanoprost 0.005% 1 drop LEFT EYE HS 01/17/22 01/06/23 History Eye Drop] Omeprazole 20 mg PO HS 01/17/22 01/06/23 History PARoxetine [Paxil] 10 mg PO HS 01/17/22 01/06/23 History Potassium Chloride ER [K-Dur 20] 20 meq PO DAILY 01/17/22 01/06/23 History Primidone [Mysoline] 50 mg PO HS 01/17/22 01/06/23 History Sennosides [Senokot] 8.6 mg PO HS 01/17/22 01/06/23 History Sennosides [Senokot] 17.2 mg PO DAILY 01/17/22 01/06/23 History Tamsulosin [Flomax] 0.4 mg PO HS 01/17/22 01/06/23 History polyethylene glycoL 3350 [Miralax] 17 gm PO DAILY 01/17/22 01/06/23 History Atorvastatin [Lipitor] 40 mg PO HS 03/01/22 01/06/23 History Nitroglycerin Sl Tabs [Nitrostat] 0.4 mg SL Q5M PRN 03/01/22 01/06/23 History Apixaban [Eliquis] 5 mg PO BID 08/04/22 01/06/23 History Multivitamins, Thera [Multivitamin 1 tab PO DAILY 08/04/22 01/06/23 History (formulary)] Isosorbide Mononitrate ER [Imdur] 30 mg PO DAILY #30 tab 08/12/22 01/06/23 Rx Acetaminophen Tab [Tylenol] 1,000 mg PO BID PRN 09/07/22 01/06/23 History Docusate [Colace] 100 mg PO BID@0700,1600 09/07/22 01/06/23 History Ranolazine [Ranexa] 500 mg PO BID 09/07/22 01/06/23 History glipiZIDE XL [Glucotrol XL] 5 mg PO DAILY@1400 09/07/22 01/06/23 History glipiZIDE XL [Glucotrol XL] 10 mg PO DAILY@0600 09/07/22 01/06/23 History Gabapentin [Neurontin] 400 mg PO TID@0700,1300,1900 #10 09/13/22 01/06/23 Rx cap HYDROcodone/APAP 5-325MG [[place] 1 tab PO Q6H #7 tab 09/13/22 01/06/23 Rx 5-325] Baclofen 10 mg PO TID@0700,1300,1900 01/06/23 01/06/23 History Bumetanide [BUMEX] 2 mg PO BID 01/06/23 01/06/23 History Hydrocortisone 1% Lotion 1 applic TOPICAL BID 01/06/23 01/06/23 History Menthol [Biofreeze] 1 applic TOPICAL Q8H PRN 01/06/23 01/06/23 History Menthol [Biofreeze] 1 applic TOPICAL QID 01/06/23 01/06/23 History Metoprolol Tartrate [Lopressor] 25 mg PO BID@0700,1600 01/06/23 01/06/23 History lisinopriL [Zestril] 5 mg PO DAILY 01/06/23 01/06/23 History Allergies Allergy/AdvReac Type Severity Reaction Status Date / Time No Known Allergies Allergy Verified 01/06/23 06:51 Physical Examination - Vital Signs Vital Signs: Vital Signs Temp Pulse Resp BP Pulse Ox 01/06/23 07:33 62 18 157/81 98 01/06/23 05:50 97.3 F L 75 18 146/71 96 Intake and Output 01/05/23 01/06/23 01/06/23 22:59 06:59 14:59 Other: Weight 134.263 kg GENERAL: The patient is lying in bed and is not in acute distress. NEUROLOGICAL: Higher mental function: The patient is awake, alert, oriented to self and time. He stated he was in the assisted. He is able to identify objects (pen, watch, glasses). Patient is following commands. No aphasia and no neglect. Cranial nerves: The pupils are round, equal and reactive to light. Visual schmidt are full to confrontation throughout. Extraocular movement is intact no nystagmus is noted. Facial sensation is decreased to touch over the right side (stated old). Right lower facial droop that is mild to moderate in severity (old). No dysarthria. Hearing is moderately decreased bilaterally to hand rub. Tongue is midline and moved [id number] without any difficulty. Motor: The strength is has significant weakness over the right side with incre ase tone. While left upper is 5/5. Left lower is limited because of hip and knee pain but had antigravity. Has edema over the right ankle that seems significant. Cerebellum: Normal finger to nose on left. Otherwise limited. Sensation: Sensation is decreased to touch over the right side (old) Reflexes (right/left): 3+ over the right upper. 2+ left uppers. Lowers are hard to assess because of body habitus. Plantars are mute bilaterally. Results - Laboratory Findings CBC and BMP: 01/06/23 06:08 01/06/23 06:08 Abnormal Lab Findings: Abnormal Labs 01/06/23 01/06/23 01/06/23 05:55 06:08 06:08 RBC 3.91 L Hgb 11.7 L Hct 36.6 L BUN 38 H Creatinine 1.53 H Glucose 129 H POC Glucose (mg/dL) 129 H Creatine Kinase 46 L Assessment and Plan Assessment: This is a 77-year-old gentleman who presented emergency department because of aphasia and not following commands over at his nursing facility. His initial NIH stroke scale was a 30 that his symptoms resolved within 18 minutes into the ER stay. According to patient he also noticed that he's having weakness of bilateral lower extremity (bilateral). Acute aphasia that was transient seems due to transient ischemic attack. Rule out acute ischemic stroke not seen on CT. Left lower extremity is limited because of hip pain and knee pain. History of multiple stroke with significant right hemiparesis, has spasticity over the right upper, right facial droop and decreased sensation over the right side. A CT of the head patient has bilateral basal ganglia ischemic stroke left more than the right Underlying history of atrial fibrillation on eliquis Hyperlipidemia Morbid Obesity Plan: I ordered MRI of the brain, 2-D echo. The patient was started on aspirin 325 daily by the ED physician I started the patient on Lipitor 40 mg daily at bedtime. If the patient's symptoms has resolved, then can resume eliquis home dose. Lipid panels ordered. I ordered the TSH, hemoglobin A1c. Continue neuro checks Cardiac monitoring PT OT and COLUMNIST are consulted We'll defer the rest of the medical management to primary team DVT prophylaxis I started the patient on subcu heparin 5000 units every 12 hours. If eliquis is restated then discontinue subq heparin. Thank you for the consultation Time with Patient: Greater than 30
[2023-01-06] MEDS ORDERED: NITROGLYCERIN SL TABS 0.4 MG TAB SUBLINGUAL PRN (12:26)
[2023-01-06] MEDS ORDERED: METHYL SALICYLATE-MENTHOL OINT (3 OZ TUBE) TOPICAL PRN (12:26)
[2023-01-06] MEDS ORDERED: BACLOFEN 10 MG TAB PO PRN (12:26)
[2023-01-06] MEDS ORDERED: HYDROcodone/APAP 5-325MG 1 EACH TAB PO PRN (12:30)
--- NOTE | 2023-01-06 12:42 | P.HPIM ---
History of Present Illness 77-year-old male came in with complaints of speech difficulty patient does have a chronic weakness and hemiparesis on the right side from his previous stroke patient is on anticoagulation with Eliquis for atrial fibrillation. Patient denied any other weakness his symptoms resolved few minutes after arrival to ER patient is a snf resident. Patient has creatinine of 1.5. Baseline is around 1. Patient does have history of discharge failure chronic diastolic dysfunction. Patient does have history of coronary artery disease patient doesn't creatinine is 1.5. REVIEW OF SYSTEMS: CONSTITUTIONAL: No fever, no malaise, no fatigue. HEENT: No recent visual problems or hearing problems. Denied any sore throat. CARDIOVASCULAR: No chest pain, orthopnea, PND, no palpitations, no syncope. PULMONARY: No shortness of breath, no cough, no hemoptysis. GASTROINTESTINAL: No diarrhea, no nausea, no vomiting, no abdominal pain. NEUROLOGICAL: No headaches, no weakness, no numbness. HEMATOLOGICAL: Denies any bleeding or petechiae. GENITOURINARY: Denies any burning micturition, frequency, or urgency. MUSCULOSKELETAL/RHEUMATOLOGICAL: Denies any joint pain, swelling, or any muscle pain. ENDOCRINE: Denies any polyuria or polydipsia. The rest of the 14-point review of systems is negative. PHYSICAL EXAMINATION: GENERAL: The patient is alert and oriented x3, not in any acute distress. Morbidly obese HEENT: Pupils are round and equally reacting to light. EOMI. No scleral icterus. No conjunctival pallor. Normocephalic, atraumatic. No pharyngeal erythema. No thyromegaly. CARDIOVASCULAR: S1 and S2 present. No murmurs, rubs, or gallops. PULMONARY: Chest is clear to auscultation, no wheezing or crackles. ABDOMEN: Soft, nontender, nondistended, normoactive bowel sounds. No palpable organomegaly. MUSCULOSKELETAL: No joint swelling or deformity. EXTREMITIES: No cyanosis, clubbing, or pedal edema. NEUROLOGICAL: Chronic weakness of the right side SKIN: No rashes. Assessment and plan -Possible transient ischemic attack/: Patient is undergoing MRI, echocardiogram, was started on aspirin patient will be resumed on anti-correlation for atrial fibrillation speech therapy PT and OT -Acute renal failure probably secondary to congestive heart failure exacerbation patient probably has prerenal azotemia from that Congestive heart failure chronic diastolic dysfunction with possible mild acute exacerbation, BNP will be ordered patient Bumex will be switched 1 mg twice a day IV can be switched to oral starting tomorrow probably -Coronary artery disease: Resume his home medications next and-history of CVA in the past -Hyperlipidemia -Diabetes mellitus resumed on home regimen along with sliding scale Hyperlipidemia Diabetic Peripheral neuropathy 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 -Chronic low back pain -Obesity DVT prophylaxis: On anticoagulation as mentioned above Past Medical History Past Medical History: Chest Pain / Angina, CVA/TIA, Hyperlipidemia History of Any Multi-Drug Resistant Organisms: None Reported Past Surgical History: Appendectomy, Orthopedic Surgery Past Anesthesia/Blood Transfusion Reactions: No Reported Reaction Past Psychological History: No Psychological Hx Reported, Depression Smoking Status: Never smoker Past Alcohol Use History: None Reported Past Drug Use History: None Reported Medications and Allergies Home Medications Medication Instructions Recorded Confirmed Type Cholecalciferol [Vitamin D3 (25 25 mcg PO DAILY 01/17/22 01/06/23 History Mcg = 1000 Iu)] Latanoprost/Pf [Latanoprost 0.005% 1 drop LEFT EYE HS 01/17/22 01/06/23 History Eye Drop] Omeprazole 20 mg PO HS 01/17/22 01/06/23 History PARoxetine [Paxil] 10 mg PO HS 01/17/22 01/06/23 History Potassium Chloride ER [K-Dur 20] 20 meq PO DAILY 01/17/22 01/06/23 History Primidone [Mysoline] 50 mg PO HS 01/17/22 01/06/23 History Sennosides [Senokot] 8.6 mg PO HS 01/17/22 01/06/23 History Sennosides [Senokot] 17.2 mg PO DAILY 01/17/22 01/06/23 History Tamsulosin [Flomax] 0.4 mg PO HS 01/17/22 01/06/23 History polyethylene glycoL 3350 [Miralax] 17 gm PO DAILY 01/17/22 01/06/23 History Atorvastatin [Lipitor] 40 mg PO HS 03/01/22 01/06/23 History Nitroglycerin Sl Tabs [Nitrostat] 0.4 mg SL Q5M PRN 03/01/22 01/06/23 History Apixaban [Eliquis] 5 mg PO BID 08/04/22 01/06/23 History Multivitamins, Thera [Multivitamin 1 tab PO DAILY 08/04/22 01/06/23 History (formulary)] Isosorbide Mononitrate ER [Imdur] 30 mg PO DAILY #30 tab 08/12/22 01/06/23 Rx Acetaminophen Tab [Tylenol] 1,000 mg PO BID PRN 09/07/22 01/06/23 History Docusate [Colace] 100 mg PO BID@0700,1600 09/07/22 01/06/23 History Ranolazine [Ranexa] 500 mg PO BID 09/07/22 01/06/23 History glipiZIDE XL [Glucotrol XL] 5 mg PO DAILY@1400 09/07/22 01/06/23 History glipiZIDE XL [Glucotrol XL] 10 mg PO DAILY@0600 09/07/22 01/06/23 History Gabapentin [Neurontin] 400 mg PO TID@0700,1300,1900 #10 09/13/22 01/06/23 Rx cap HYDROcodone/APAP 5-325MG [[place] 1 tab PO Q6H #7 tab 09/13/22 01/06/23 Rx 5-325] Baclofen 10 mg PO TID@0700,1300,1900 01/06/23 01/06/23 History Bumetanide [BUMEX] 2 mg PO BID 01/06/23 01/06/23 History Hydrocortisone 1% Lotion 1 applic TOPICAL BID 01/06/23 01/06/23 History Menthol [Biofreeze] 1 applic TOPICAL Q8H PRN 01/06/23 01/06/23 History Menthol [Biofreeze] 1 applic TOPICAL QID 01/06/23 01/06/23 History Metoprolol Tartrate [Lopressor] 25 mg PO BID@0700,1600 01/06/23 01/06/23 History lisinopriL [Zestril] 5 mg PO DAILY 01/06/23 01/06/23 History Allergies Allergy/AdvReac Type Severity Reaction Status Date / Time No Known Allergies Allergy Verified 01/06/23 06:51 Physical Exam Vitals: Vital Signs Temp Pulse Resp BP Pulse Ox 01/06/23 09:25 58 L 18 140/79 94 L 01/06/23 07:33 62 18 157/81 98 01/06/23 05:50 97.3 F L 75 18 146/71 96 Intake and Output 01/05/23 01/06/23 01/06/23 22:59 06:59 14:59 Other: Weight 134.263 kg Results CBC & Chem 7: 01/06/23 06:08 01/06/23 06:08 Labs: Abnormal Lab Results - Last 24 Hours (Table) 01/06/23 01/06/23 01/06/23 Range/Units 05:55 06:08 06:08 RBC 3.91 L (4.30-5.90) m/uL Hgb 11.7 L (13.0-17.5) gm/dL Hct 36.6 L (39.0-53.0) % BUN 38 H (9-20) mg/dL Creatinine 1.53 H (0.66-1.25) mg/dL Glucose 129 H (74-99) mg/dL POC Glucose (mg/dL) 129 H (70-110) mg/dL Creatine Kinase 46 L (55-170) U/L
[2023-01-06] MEDS: METHYL SALICYLATE-MENTHOL OINT (3 OZ TUBE) TOPICAL SCH ×3 (13:14→20:58)
[2023-01-06] MEDS: GABAPENTIN 400 MG CAP PO SCH ×2 (13:32→16:58)
[2023-01-06] MEDS: BUMETANIDE 0.25 MG/ML 4 ML VIAL IVP SCH ×2 (13:32→20:57)
[2023-01-06 16:38] LABS: Glucose,Whole Blood 149 mg/dL (70-110)
[2023-01-06] MEDS: METOPROLOL TARTRATE 25 MG TAB PO SCH (16:58)
[2023-01-06] MEDS: INSULIN ASPART (NovoLOG) 100 UNIT/ML VIAL SQ SCH ×2 (16:58→20:50)
--- NOTE | 2023-01-06 17:59 | CA ---
Transthoracic Echo Report Name: Babar Altamirano Age: 77 Gender: M : 1945 Exam Date: 01/06/2023 10:55 Exam Location: [facility] Ht (in): 72 Wt (lb): 296 Ordering Physician: Tristan Shoemaker MD Attending/Referring Phys: Loan Underwriter Reynaldo Espana Procedure CPT: Indications: stroke Cardiac Hx: Technical Quality: Technically difficult study Contrast 1: Total Dose (mL): Contrast 2: Total Dose (mL): MEASUREMENTS (Male / Female) Normal Values 2D ECHO LV Diastolic Diameter PLAX 5.1 cm 4.2 - 5.9 / 3.9 - 5.3 cm LV Systolic Diameter PLAX 2.5 cm IVS Diastolic Thickness 1.2 cm 0.6 - 1.0 / 0.6 - 0.9 cm LVPW Diastolic Thickness 1.0 cm 0.6 - 1.0 / 0.6 - 0.9 cm LV Relative Wall Thickness 0.4 RV Internal Dim ED PLAX 3.0 cm LVOT Diameter 2.1 cm Aortic Root Diameter 3.3 cm LA Systolic Diameter LX 3.5 cm 3.0 - 4.0 / 2.7 - 3.8 cm LV Diastolic Volume MOD BP 56.7 cm??? 67 - 155 / 56 - 104 cm??? LV Systolic Volume MOD BP 17.8 cm??? - 58 / 19 - 49 cm??? LV Ejection Fraction MOD BP 68.6 % >= 55 % LV Cardiac Index MOD BP 946.8 cm???/min???m??? LV Diastolic Volume MOD 4C 68.1 cm??? LV Systolic Volume MOD 4C 19.7 cm??? LV Ejection Fraction MOD 4C 71.1 % LV Cardiac Index MOD 4C 1181.4 cm???/min???m??? LV Diastolic Length 4C 6.7 cm LV Systolic Length 4C 5.4 cm LV Diastolic Volume MOD 2C 46.2 cm??? LV Systolic Volume MOD 2C 15.7 cm??? LV Ejection Fraction MOD 2C 65.9 % LV Cardiac Index MOD 2C 741.1 cm???/min???m??? LV Diastolic Length 2C 6.4 cm LV Systolic Length 2C 5.7 cm LA Volume 50.7 cm??? 18 - 58 / 22 - 52 cm??? DOPPLER AV Peak Velocity 113.6 cm/s AV Peak Gradient 5.2 mmHg LVOT Peak Velocity 83.5 cm/s LVOT Peak Gradient 2.8 mmHg AV Area Cont Eq pk 2.6 cm??? MV Peak Velocity 146.4 cm/s MV Peak Gradient 8.6 mmHg MV Mean Velocity 64.0 cm/s MV Mean Gradient 2.4 mmHg MV Velocity Time Integral 43.7 cm Mitral E Point Velocity 132.5 cm/s Mitral A Point Velocity 25.2 cm/s Mitral E to A Ratio 5.2 MV Deceleration Time 177.2 ms MV E' Velocity 5.9 cm/s Mitral E to MV E' Ratio 22.5 TR Peak Velocity 250.3 cm/s TR Peak Gradient 25.1 mmHg Right Ventricular Systolic Press 30.1 mmHg FINDINGS Left Ventricle Normal LV size. Left ventricular ejection fraction is estimated at 55-60 %.normal left ventricular wall motion. Mildly increased left ventricular wall thickness. Right Ventricle Normal right ventricular size. RVSP= 31mmhg. Right Atrium Normal right atrial size. Left Atrium Normal left atrial size. LA volume index= 20ml/m2 Mitral Valve Structurally normal mitral valve. Aortic Valve Aortic valve not well visualized. Mild aortic regurgitation. Tricuspid Valve Tricuspid valve not well visualized. Mild TR. Pulmonic Valve Pulmonic valve not well visualized. No pulmonic regurgitation. Pericardium Not well visualized. Aorta Normal size aortic root. CONCLUSIONS Technically difficult study. Lumason ECHO contrast used for improved visualization of the endocardial borders (inadequate visualization of two or more contiguous segments). 1. Normal left ventricle size and systolic function 2. Limited Doppler study with mild mitral and aortic regurgitation Previewed by: Dr. Joan Quinonez MD (Electronically Signed) Final Date: 06 January 2023 17:58
[2023-01-06 20:20] LABS: Glucose,Whole Blood 167 mg/dL (70-110)
[2023-01-06] MEDS: glipiZIDE 5 MG TAB PO SCH (20:49)
[2023-01-06] MEDS: PANTOPRAZOLE 40 MG TABLET PO SCH (20:49)
[2023-01-06] MEDS: APIXABAN 5 MG TAB PO SCH (20:49)
[2023-01-06] MEDS: RANOLAZINE 500 MG TAB.ER.12H PO SCH (20:49)
[2023-01-06] MEDS: PRIMIDONE 50 MG TAB PO SCH (20:49)
[2023-01-06] MEDS: SENNOSIDES 8.6 MG TAB PO SCH (20:50)
[2023-01-06] MEDS: ATORVASTATIN 40 MG TAB PO SCH (20:50)
[2023-01-06] MEDS: TAMSULOSIN 0.4 MG CAP.ER.24H PO SCH (20:50)
[2023-01-06] MEDS: LATANOPROST 0.005% OPHTH DROPS 2.5 ML BTL LEFT EYE SCH (20:57)
[2023-01-06] MEDS: PARoxetine 10 MG TAB PO SCH (20:57)
[2023-01-06] MEDS ORDERED: ATORVASTATIN 40 MG TAB PO SCH (21:00)
[2023-01-06] MEDS ORDERED: HEPARIN SODIUM,PORCINE/PF 5,000 UNIT/0.5 ML SYRINGE SQ SCH (21:00)
[2023-01-06] MEDS ORDERED: HYDROCORTISONE 1% TOPICAL SCH (21:00)
[2023-01-07 06:17] LABS: Glucose,Whole Blood 121 mg/dL (70-110)
[2023-01-07] MEDS: INSULIN ASPART (NovoLOG) 100 UNIT/ML VIAL SQ SCH ×4 (06:22→20:24)
[2023-01-07] MEDS: METOPROLOL TARTRATE 25 MG TAB PO SCH ×2 (06:31→18:20)
[2023-01-07] MEDS: GABAPENTIN 400 MG CAP PO SCH ×3 (06:31→18:20)
[2023-01-07 08:51] LABS: African American GFR (CKD) 46 (>60 ml/min/1.73 sqM); Anion Gap 10 mmol/L; Blood Urea Nitrogen 34 mg/dL (9-20); Calcium 9.5 mg/dL (8.4-10.2); Carbon Dioxide 31 mmol/L (22-30); Chloride 98 mmol/L (98-107); Glucose 125 mg/dL (74-99); Magnesium 2.1 mg/dL (1.6-2.3); Non-African American GFR(CKD) 40 (>60 ml/min/1.73 sqM); Potassium 4.4 mmol/L (3.5-5.1); Sodium 139 mmol/L (137-145)
[2023-01-07] MEDS: BUMETANIDE 0.25 MG/ML 4 ML VIAL IVP SCH (09:35)
[2023-01-07] MEDS: METHYL SALICYLATE-MENTHOL OINT (3 OZ TUBE) TOPICAL SCH ×4 (09:36→23:27)
[2023-01-07] MEDS: APIXABAN 5 MG TAB PO SCH ×2 (09:36→20:24)
[2023-01-07] MEDS: ASPIRIN 325 MG TAB PO SCH (09:36)
[2023-01-07] MEDS: glipiZIDE 5 MG TAB PO SCH ×2 (09:36→20:24)
[2023-01-07] MEDS: RANOLAZINE 500 MG TAB.ER.12H PO SCH ×2 (09:36→20:25)
[2023-01-07] MEDS: ISOSORBIDE MONONITRATE ER 30 MG TAB.ER.24H PO SCH (09:36)
[2023-01-07] MEDS: SENNOSIDES 8.6 MG TAB PO SCH ×2 (09:37→20:25)
[2023-01-07 11:25] LABS: Glucose,Whole Blood 134 mg/dL (70-110)
--- NOTE | 2023-01-07 14:12 | P.PN ---
Subjective Progress Note Date: 01/07/23 77-year-old male came in with complaints of speech difficulty patient does have a chronic weakness and hemiparesis on the right side from his previous stroke patient is on anticoagulation with Eliquis for atrial fibrillation. Patient denied any other weakness his symptoms resolved few minutes after arrival to ER patient is a retirement resident. Patient has creatinine of 1.5. Baseline is around 1. Patient does have history of discharge failure chronic diastolic dysfunction. Patient does have history of coronary artery disease patient doesn't creatinine is 1.5. 01/07/2023 Patient is evaluated today resting in bed. His symptoms of aphasia have resolved at this time and he is currently alert 3. Patient underwent an echocardiogram revealing an EF of 55-60% with mild mitral and aortic reg urgitation. Additional testing done within the stroke workup includes a brain CT and CT angiography. The brain CT is negative for acute findings. CT angiography reveals bilateral carotid vertebral and subclavian arteries are patent there is a small amount of patchy groundglass opacities in the visualized lungs can be due to underinflation versus a mild pulmonary edema. He had a chest x-ray done showing possible mild congestion and probable mild bibasilar atelectasis. He was continued on eliquis twice a day. Patient does have chronic renal disease with a creatinine of 1.62 today he is continued IV Bumex however we'll recommend to hold the afternoon dose and patient will be transitioned to oral Bumex tomorrow. He is on 3 L of oxygen at this time. Hemoglobin A1c is 7.9. Troponin is negative. Review of Systems Constitutional: Denied any fatigue denied any fever. Cardio vascular: denied any chest pain, palpitations Gastrointestinal: denied any nausea, vomiting, diarrhea Pulmonary: Denied any shortness of breath cough Neurologic denied any new focal deficits All inpatient medications were reviewed and appropriate changes in these medications as dictated in the interval history and assessment and plan. PHYSICAL EXAMINATION: GENERAL: The patient is alert and oriented x3, not in any acute distress. Well developed, well nourished. On 3L of oxygen. Pale. HEENT: Pupils are round and equally reacting to light. EOMI. No scleral icterus. No conjunctival pallor. Normocephalic, atraumatic. No pharyngeal erythema. No thyromegaly. CARDIOVASCULAR: S1 and S2 present. No murmurs, rubs, or gallops. PULMONARY: Chest is clear to auscultation, no wheezing or crackles. ABDOMEN: Soft, nontender, nondistended, normoactive bowel sounds. No palpable organomegaly. MUSCULOSKELETAL: No joint swelling or deformity. EXTREMITIES: No cyanosis, clubbing, or pedal edema. NEUROLOGICAL: Gross neurological examination did not reveal any focal deficits. Generalized weakness. Right upper extremity weakness and right facial droop. Old. SKIN: No rashes. Sacral Decub. 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 This completes the stroke work up He remains on oxygen support was recently hospitalized and treated for pneumonia. Oxygen saturations are 98% and this can be weaned tolerated. Will provide patient with incentive spirometer. Continue neuro checks. Once MRI completed and stable from a neurological perspective patient to be discharged back to [facility] likely in the next 24 hours. Transition to oral bumex in the AM and repeat labs. The impression and plan of care has been dictated by Edel Alcocer, Nurse Practitioner as directed. Dr. Sharonda MD I have performed a history and physical examination and medical decision making of this patient, discussed the same with the dictator, and agree with the dictators assessment and plan as written, documented as a scribe. Based on total visit time, I have performed more than 50% of this visit. Objective - Vital Signs Vital signs: Vital Signs Temp 98.6 F 01/07/23 08:00 Pulse 71 01/07/23 12:00 Resp 18 01/07/23 12:00 BP 131/74 01/07/23 12:00 Pulse Ox 98 01/07/23 12:00 FiO2 Intake & Output 01/06/23 01/07/23 01/07/23 18:59 06:59 18:59 Intake Total 360 Output Total 600 1000 950 Balance -600 -1000 -590 Weight 129.605 kg 130.5 kg Intake: Oral 360 Output: Urine 600 1000 950 Other: Voiding Method External Catheter External Catheter - Labs CBC & Chem 7: 01/06/23 06:08 01/07/23 07:51 Labs: Abnormal Lab Results - Last 24 Hours (Table) 01/06/23 01/06/23 01/06/23 Range/Units 06:08 16:36 20:18 Carbon Dioxide (22-30) mmol/L BUN (9-20) mg/dL Creatinine (0.66-1.25) mg/dL Glucose (74-99) mg/dL POC Glucose (mg/dL) 149 H 167 H (70-110) mg/dL Hemoglobin A1c 7.9 H (<=6.0) % 01/07/23 01/07/23 01/07/23 Range/Units 06:15 07:51 11:23 Carbon Dioxide 31 H (22-30) mmol/L BUN 34 H (9-20) mg/dL Creatinine 1.62 H (0.66-1.25) mg/dL Glucose 125 H (74-99) mg/dL POC Glucose (mg/dL) 121 H 134 H (70-110) mg/dL Hemoglobin A1c (<=6.0) % Assessment and Plan Time with Patient: Less than 30
--- NOTE | 2023-01-07 15:54 | P.PN ---
Subjective Progress Note Date: 01/07/23 On follow-up seeing the patient and he feels he is about the same. Denies any further speech difficulty. Denies of any new neurological issues at. Objective - Vital Signs Vital signs: Vital Signs Temp 98.6 F 01/07/23 08:00 Pulse 71 01/07/23 12:00 Resp 18 01/07/23 12:00 BP 131/74 01/07/23 12:00 Pulse Ox 98 01/07/23 12:00 FiO2 Intake & Output 01/06/23 01/07/23 01/07/23 18:59 06:59 18:59 Intake Total 360 Output Total 600 1000 950 Balance -600 -1000 -590 Weight 129.605 kg 130.5 kg Intake: Oral 360 Output: Urine 600 1000 950 Other: Voiding Method External Catheter External Catheter - Exam GENERAL: The patient is lying in bed and is not in acute distress. NEUROLOGICAL: Higher mental function: The patient is awake, alert, oriented to self and time. He stated he was in the residential. He is able to identify objects (pen, watch, glasses). Patient is following commands. No aphasia and no neglect. Cranial nerves: The pupils are round, equal and reactive to light. Visual schmidt are full to confrontation throughout. Extraocular movement is intact no nystagmus is noted. Facial sensation is decreased to touch over the right side (stated old). Right lower facial droop that is mild to moderate in severity (old). No dysarthria. Hearing is moderately decreased bilaterally to hand rub. Tongue is midline and moved [id number] without any difficulty. Motor: The strength is has significant weakness over the right side with increase tone. While left upper is 5/5. Left lower is limited because of hip and knee pain but had antigravity. Has edema over the right ankle that seems significant. Cerebellum: Normal finger to nose on left. Otherwise limited. Sensation: Sensation is decreased to touch over the right side (old) Reflexes (right/left): 3+ over the right upper. 2+ left uppers. Lowers are hard to assess because of body habitus. Plantars are mute bilaterally. Some other workup during this hospital visit consisted of: TSH is 0.785. Hemoglobin A1c 7.9 CT of the head is reported as no acute intracranial finding. If acute intracranial infarction remains a concern, MRI may help to further evaluate for patient is a candidate. Personally reviewed the CT of the head and there is no acute or subacute ischemia that's appreciable. She has had old lacunar stroke over bilateral basal ganglia left more than the right. CT angiography of the neck was reported as bilateral carotid, vertebral and subclavian arteries are patent. CT angiography of the head is reported as no acute finding and the arteries of the head/brain. 2-D echo was reported as technically difficult study. Normal left ventricle size and systolic function. Limited echo study with the mild monitor aortic regurgitation. - Labs CBC & Chem 7: 01/06/23 06:08 01/07/23 07:51 Labs: Abnormal Lab Results - Last 24 Hours (Table) 01/06/23 01/06/23 01/06/23 Range/Units 06:08 16:36 20:18 Carbon Dioxide (22-30) mmol/L BUN (9-20) mg/dL Creatinine (0.66-1.25) mg/dL Glucose (74-99) mg/dL POC Glucose (mg/dL) 149 H 167 H (70-110) mg/dL Hemoglobin A1c 7.9 H (<=6.0) % 01/07/23 01/07/23 01/07/23 Range/Units 06:15 07:51 11:23 Carbon Dioxide 31 H (22-30) mmol/L BUN 34 H (9-20) mg/dL Creatinine 1.62 H (0.66-1.25) mg/dL Glucose 125 H (74-99) mg/dL POC Glucose (mg/dL) 121 H 134 H (70-110) mg/dL Hemoglobin A1c (<=6.0) % Assessment and Plan Assessment: This is a 77-year-old gentleman who presented emergency department because of aphasia and not following commands over at his nursing facility. His initial NIH stroke scale was a 30 that his symptoms resolved within 18 minutes into the ER stay. According to patient he also noticed that he's having weakness of bilateral lower extremity (bilateral). Acute aphasia that was transient seems due to transient ischemic attack. Rule out acute ischemic stroke not seen on CT. Left lower extremity is limited because of hip pain and knee pain. History of multiple stroke with significant right hemiparesis, has spasticity over the right upper, right facial droop and decreased sensation over the right side. A CT of the head patient has bilateral basal ganglia ischemic stroke left more than the right Underlying history of atrial fibrillation on eliquis Hyperlipidemia Morbid Obesity Plan: Pending MRI of the brain. . The patient was started on aspirin 325 daily by the ED physician I started the patient on Lipitor 40 mg daily at bedtime. Patient is resumed on his home dose of Eliquis 5 mg twice a day Continue neuro checks Cardiac monitoring PT OT and MORTGAGE BRANCH MANAGER are consulted Pending Lipid panel. We'll defer the rest of the medical management to primary team DVT prophylaxis: On eliquis. The plan discussed with the patient and the N.P. from primary team. Time with Patient: Less than 30
[2023-01-07 15:59] LABS: Chol/HDL Ratio 4.17 Ratio; LDL Cholesterol,Calculated 67.3 mg/dL (0.0-131.0)
[2023-01-07 16:18] LABS: Glucose,Whole Blood 183 mg/dL (70-110)
[2023-01-07 20:08] LABS: Glucose,Whole Blood 178 mg/dL (70-110)
[2023-01-07] MEDS: ATORVASTATIN 40 MG TAB PO SCH (20:24)
[2023-01-07] MEDS: TAMSULOSIN 0.4 MG CAP.ER.24H PO SCH (20:25)
[2023-01-07] MEDS: LATANOPROST 0.005% OPHTH DROPS 2.5 ML BTL LEFT EYE SCH (20:25)
[2023-01-07] MEDS: PANTOPRAZOLE 40 MG TABLET PO SCH (20:25)
[2023-01-07] MEDS: PARoxetine 10 MG TAB PO SCH (20:25)
[2023-01-07] MEDS: PRIMIDONE 50 MG TAB PO SCH (20:25)
[2023-01-07] MEDS: NYSTATIN 100,000 UNIT/GM POWD 15 GM TOPICAL SCH (23:28)
[2023-01-08 06:03] LABS: Glucose,Whole Blood 150 mg/dL (70-110)
[2023-01-08] MEDS: INSULIN ASPART (NovoLOG) 100 UNIT/ML VIAL SQ SCH ×4 (06:11→20:31)
[2023-01-08] MEDS: GABAPENTIN 400 MG CAP PO SCH ×3 (06:38→18:51)
[2023-01-08] MEDS: METOPROLOL TARTRATE 25 MG TAB PO SCH ×2 (06:38→16:57)
[2023-01-08 08:28] LABS: African American GFR (CKD) 61 (>60 ml/min/1.73 sqM); Anion Gap 10 mmol/L; Blood Urea Nitrogen 36 mg/dL (9-20); Calcium 9.3 mg/dL (8.4-10.2); Carbon Dioxide 29 mmol/L (22-30); Chloride 99 mmol/L (98-107); Glucose 107 mg/dL (74-99); Non-African American GFR(CKD) 53 (>60 ml/min/1.73 sqM); Potassium 4.3 mmol/L (3.5-5.1); Sodium 138 mmol/L (137-145)
[2023-01-08] MEDS: glipiZIDE 5 MG TAB PO SCH ×2 (09:31→20:30)
[2023-01-08] MEDS: BUMETANIDE 1 MG TAB PO SCH ×2 (09:31→20:28)
[2023-01-08] MEDS: ASPIRIN 325 MG TAB PO SCH (09:31)
[2023-01-08] MEDS: RANOLAZINE 500 MG TAB.ER.12H PO SCH ×2 (09:31→20:29)
[2023-01-08] MEDS: ISOSORBIDE MONONITRATE ER 30 MG TAB.ER.24H PO SCH (09:31)
[2023-01-08] MEDS: APIXABAN 5 MG TAB PO SCH ×2 (09:31→20:28)
[2023-01-08] MEDS: METHYL SALICYLATE-MENTHOL OINT (3 OZ TUBE) TOPICAL SCH ×4 (09:34→20:29)
[2023-01-08] MEDS: NYSTATIN 100,000 UNIT/GM POWD 15 GM TOPICAL SCH ×3 (09:34→20:30)
[2023-01-08] MEDS: SENNOSIDES 8.6 MG TAB PO SCH ×2 (09:34→20:29)
[2023-01-08 11:47] LABS: Glucose,Whole Blood 237 mg/dL (70-110)
--- NOTE | 2023-01-08 12:01 | P.PN ---
Subjective Progress Note Date: 01/08/23 The patient is seen at bedside and feels about the same. Denies of any new neurological issues. Objective - Vital Signs Vital signs: Vital Signs Temp 97.8 F 01/08/23 09:28 Pulse 74 01/08/23 09:28 Resp 16 01/08/23 09:28 BP 140/78 01/08/23 09:28 Pulse Ox 97 01/08/23 09:28 FiO2 Intake & Output 01/07/23 01/08/23 01/08/23 18:59 06:59 18:59 Intake Total 480 Output Total 1600 250 600 Balance -1120 -250 -600 Weight 130.5 kg Intake: Oral 480 Output: Urine 1600 250 600 Other: Voiding Method External Catheter External Catheter External Catheter # Bowel Movements 1 1 - Exam GENERAL: The patient is lying in bed and is not in acute distress. NEUROLOGICAL: Higher mental function: The patient is awake, alert, oriented to self and time. He stated he was in the halfway. He is able to identify objects (pen, watch, glasses). Patient is following commands. No aphasia and no neglect. Cranial nerves: The pupils are round, equal and reactive to light. Visual schmidt are full to confrontation throughout. Extraocular movement is intact no nystagmus is noted. Facial sensation is decreased to touch over the right side (stated old). Right lower facial droop that is mild to moderate in severity (old). No dysarthria. Hearing is moderately decreased bilaterally to hand rub. Tongue is midline and moved [id number] without any difficulty. Motor: The strength is has significant weakness over the right side with increase tone. While left upper is 5/5. Left lower is limited because of hip and knee pain but had antigravity. Has edema over the right ankle that seems significant. Cerebellum: Normal finger to nose on left. Otherwise limited. Sensation: Sensation is decreased to touch over the right side (old) Reflexes (right/left): 3+ over the right upper. 2+ left uppers. Lowers are hard to assess because of body habitus. Plantars are mute bilaterally. Some other workup during this hospital visit consisted of: Lipid panel: Triglyceride is 169, cholesterol is 133, LDL is 67 and HDL is 31. Hemoglobin A1c is 7.9. TSH is 0.785. Hemoglobin A1c 7.9 CT of the head is reported as no acute intracranial finding. If acute intracranial infarction remains a concern, MRI may help to further evaluate for patient is a candidate. Personally reviewed the CT of the head and there is no acute or subacute ischemia that's appreciable. She has had old lacunar stroke over bilateral basal ganglia left more than the right. CT angiography of the neck was reported as bilateral carotid, vertebral and subclavian arteries are patent. CT angiography of the head is reported as no acute finding and the arteries of the head/brain. 2-D echo was reported as technically difficult study. Normal left ventricle size and systolic function. Limited echo study with the mild monitor aortic regurgitation. - Labs CBC & Chem 7: 01/06/23 06:08 01/08/23 07:03 Labs: Abnormal Lab Results - Last 24 Hours (Table) 01/07/23 01/07/23 01/07/23 Range/Units 07:51 16:16 20:07 BUN (9-20) mg/dL Creatinine (0.66-1.25) mg/dL Glucose (74-99) mg/dL POC Glucose (mg/dL) 183 H 178 H (70-110) mg/dL Triglycerides 169.00 H (0.00-149.00) mg/dL HDL Cholesterol 31.90 L (40.00-60.00) mg/dL 01/08/23 01/08/23 01/08/23 Range/Units 06:01 07:03 11:45 BUN 36 H (9-20) mg/dL Creatinine 1.29 H (0.66-1.25) mg/dL Glucose 107 H (74-99) mg/dL POC Glucose (mg/dL) 150 H 237 H (70-110) mg/dL Triglycerides (0.00-149.00) mg/dL HDL Cholesterol (40.00-60.00) mg/dL Assessment and Plan Assessment: This is a 77-year-old gentleman who presented emergency department because of aphasia and not following commands over at his nursing facility. His initial NIH stroke scale was a 30 that his symptoms resolved within 18 minutes into the ER stay. According to patient he also noticed that he's having weakness of bilateral lower extremity (bilateral). Acute aphasia that was transient seems due to transient ischemic attack. Rule out acute ischemic stroke not seen on CT. Left lower extremity is limited because of hip pain and knee pain. History of multiple stroke with significant right hemiparesis, has spasticity ov er the right upper, right facial droop and decreased sensation over the right side. A CT of the head patient has bilateral basal ganglia ischemic stroke left more than the right Underlying history of atrial fibrillation on eliquis Hyperlipidemia Morbid Obesity Plan: Pending MRI of the brain. . The patient was started on aspirin 325 daily by the ED physician I started the patient on Lipitor 40 mg daily at bedtime. Patient is resumed on his home dose of Eliquis 5 mg twice a day Continue neuro checks Cardiac monitoring PT OT and AUXILIARY OPERATOR are consulted Pending Lipid panel. We'll defer the rest of the medical management to primary team DVT prophylaxis: On eliquis. The plan discussed with the patient and the N.P. from primary team. Time with Patient: Less than 30
[2023-01-08 12:44] LABS: Glucose,Whole Blood 199 mg/dL (70-110)
--- NOTE | 2023-01-08 14:36 | MR ---
EXAMINATION TYPE: MR brain wo con DATE OF EXAM: 01/08/2023 COMPARISON: CT brain 01/06/2023 HISTORY: Acute aphasia/TIA CONTRAST: Performed utilizing 0 mL intravenous Gadavist gadolinium contrast. TECHNIQUE: Multiplanar, multiecho imaging on a 3.0 Lucie magnet is performed through the brain. Stud y is performed within 24 hours of arrival to the hospital. The craniovertebral junction is normal. The pituitary is normal. Diffusion-weighted imaging is performed. No abnormal hyperintensity is present to suggest an acute i ntracranial infarct or acute ischemic change. There are scattered punctate areas of hyperintensity on T2 and Inversion Recovery weighted sequences which are non-specific but can be related to microvascular ischemic changes. Ventricles and sulci are prominent for the patient age. IMPRESSIONS: 1. Atrophy with scattered chronic periventricular white matter ischemic changes. 2. No acute intracranial process
--- NOTE | 2023-01-08 16:00 | P.DS ---
Providers Date of admission: 01/07/23 05:10 Attending physician: Maylin Luis Consults: 01/06/23 07:07 Consult Physician Urgent Consulting Provider: Tristan Shoemaker Consult Reason/Comments: acute aphasia, acute tia, hx cva Do you want consulting provider notified?: Yes Primary care physician: Nabila Chowdhury DO Hospital Course: Final Diagnosis Possible transient ischemic attack with acute aphasia resolved at this time and work up is negative History of atrial fibrillation anticoagulated with eliquis Acute renal failure likely due to prerenal azotemia from congestive heart failure exacerbation Congestive heart failure chronic diastolic dysfunction with mild acute exacerbation Coronary artery disease History of CVA with right hemiparesis Hyperlipidemia 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 Stroke work up is completed and neurology has cleared the patient for discharge. Patient needs to follow up with a neurologist on discharge in 1 weeks time. Patient is given script to repeat labs in 2 to 3 days to monitor renal function. Hospital Course This is a 77-year-old male with medical history of stroke, atrial fibrillation anticoagulated with eliquis, heart failure, coronary artery disease, diabetes mellitus and peripheral neuropathy, renal disease, chronic medical debility. Patient came in with complaints of speech difficulty. Patient does have chronic weakness and hemiparesis on the right side from his previous stroke and he uses a wheel chair and to lift at baseline. Patient denied any other weakness his symptoms resolved few minutes after arrival to ER. Patient has creatinine of 1.5. Baseline is around 1. Patient does have history of discharge failure chronic diastolic dysfunction. Patient underwent an echocardiogram revealing an EF of 55-60% with mild mitral and aortic regurgitation. Additional testing done within the stroke workup includes a brain CT and CT angiography. The brain CT is negative for acute findings. CT angiography reveals bilateral carotid vertebral and subclavian arteries are patent there is a small amount of patchy groundglass opacities in the visualized lungs can be due to underinflation versus a mild pulmonary edema. He had a chest x-ray done showing possible mild congestion and probable mild bibasilar atelectasis. He was given IV Bumex without much improvement in the kidney function and continues have some nasal cannula which patient states that he is chronically at this time. His creatinine today is 1.29 after he was transitioned back to oral Bumex. He had a fasting lipid panel done showing triglyceride level of 169, sodium level 133, LDL 67, HDL of 31.9. TSH is 0.75. Troponin level was negative. Hemoglobin A1c of 7.9. She had a brain MRI to complete the stroke workup reveals atrophy with chronic scattered periventricular white matter ischemic changes and no acute intracranial process. It was reviewed by the neurologist was cleared patient for discharge. Currently patient is denying shortness of breath, denying chest pain no new focal neurological deficits. Patients lungs are clear on 3L nasal cannula. S1 S2 auscultated abdomen is soft and nontender. He is alert x 3. He is at baseline. He will be discharged home. Recommending to hold off lisinopril on discharge due to the renal dysfunction and monitor blood pressure closely. Please see medication reconciliation for a list of current medication. Thank you for allowing us to participate in the care of this patient. The impression and plan of care has been dictated by Edel Alcocer, Nurse Practitioner as directed. Dr. Sharonda MD I have performed a history and physical examination and medical decision making of this patient, discussed the same with the dictator, and agree with the dictators assessment and plan as written, documented as a scribe. Based on total visit time, I have performed more than 50% of this visit. Patient Condition at Discharge: Fair Plan - Discharge Summary New Discharge Prescriptions: New INSULIN ASPART (NovoLOG) [NovoLOG (formulary)] 0 unit SQ ACHS each Atorvastatin [Lipitor] 40 mg PO HS tab Nystatin 100,000 Unit/gm Powd [Mycostatin Powder] 1 applic TOPICAL TID each Continue Cholecalciferol [Vitamin D3 (25 Mcg = 1000 Iu)] 25 mcg PO DAILY Sennosides [Senokot] 8.6 mg PO HS polyethylene glycoL 3350 [Miralax] 17 gm PO DAILY PARoxetine [Paxil] 10 mg PO HS Omeprazole 20 mg PO HS Tamsulosin [Flomax] 0.4 mg PO HS Nitroglycerin Sl Tabs [Nitrostat] 0.4 mg SL Q5M PRN PRN Reason: Chest Pain Apixaban [Eliquis] 5 mg PO BID Multivitamins, Thera [Multivitamin (formulary)] 1 tab PO DAILY Docusate [Colace] 100 mg PO BID@0700,1600 glipiZIDE XL [Glucotrol XL] 10 mg PO DAILY@0600 Baclofen 10 mg PO TID@0700,1300,1900 Menthol [Biofreeze] 1 applic TOPICAL QID Menthol [Biofreeze] 1 applic TOPICAL Q8H PRN PRN Reason: left knee pain HYDROcodone/APAP 5-325MG [[place] 5-325] 1 tab PO Q6H #7 tab Sennosides [Senokot] 17.2 mg PO DAILY Primidone [Mysoline] 50 mg PO HS Latanoprost/Pf [Latanoprost 0.005% Eye Drop] 1 drop LEFT EYE HS Atorvastatin [Lipitor] 40 mg PO HS Isosorbide Mononitrate ER [Imdur] 30 mg PO DAILY #30 tab Acetaminophen Tab [Tylenol] 1,000 mg PO BID PRN PRN Reason: Pain glipiZIDE XL [Glucotrol XL] 5 mg PO DAILY@1400 Ranolazine [Ranexa] 500 mg PO BID Bumetanide [BUMEX] 2 mg PO BID Hydrocortisone 1% Lotion 1 applic TOPICAL BID Metoprolol Tartrate [Lopressor] 25 mg PO BID@0700,1600 Gabapentin [Neurontin] 400 mg PO TID@0700,1300,1900 #10 cap Discontinued lisinopriL [Zestril] 5 mg PO DAILY Potassium Chloride ER [K-Dur 20] 20 meq PO DAILY Discharge Medication List Cholecalciferol [Vitamin D3 (25 Mcg = 1000 Iu)] 25 mcg PO DAILY 01/17/22 [History] Latanoprost/Pf [Latanoprost 0.005% Eye Drop] 1 drop LEFT EYE HS 01/17/22 [History] Omeprazole 20 mg PO HS 01/17/22 [History] PARoxetine [Paxil] 10 mg PO HS 01/17/22 [History] Primidone [Mysoline] 50 mg PO HS 01/17/22 [History] Sennosides [Senokot] 8.6 mg PO HS 01/17/22 [History] Sennosides [Senokot] 17.2 mg PO DAILY 01/17/22 [History] Tamsulosin [Flomax] 0.4 mg PO HS 01/17/22 [History] polyethylene glycoL 3350 [Miralax] 17 gm PO DAILY 01/17/22 [History] Atorvastatin [Lipitor] 40 mg PO HS 03/01/22 [History] Nitroglycerin Sl Tabs [Nitrostat] 0.4 mg SL Q5M PRN 03/01/22 [History] Apixaban [Eliquis] 5 mg PO BID 08/04/22 [History] Multivitamins, Thera [Multivitamin (formulary)] 1 tab PO DAILY 08/04/22 [History] Isosorbide Mononitrate ER [Imdur] 30 mg PO DAILY #30 tab 08/12/22 [Rx] Acetaminophen Tab [Tylenol] 1,000 mg PO BID PRN 09/07/22 [History] Docusate [Colace] 100 mg PO BID@0700,1600 09/07/22 [History] Ranolazine [Ranexa] 500 mg PO BID 09/07/22 [History] glipiZIDE XL [Glucotrol XL] 5 mg PO DAILY@1400 09/07/22 [History] glipiZIDE XL [Glucotrol XL] 10 mg PO DAILY@0600 09/07/22 [History] Baclofen 10 mg PO TID@0700,1300,1900 01/06/23 [History] Bumetanide [BUMEX] 2 mg PO BID 01/06/23 [History] Hydrocortisone 1% Lotion 1 applic TOPICAL BID 01/06/23 [History] Menthol [Biofreeze] 1 applic TOPICAL Q8H PRN 01/06/23 [History] Menthol [Biofreeze] 1 applic TOPICAL QID 01/06/23 [History] Metoprolol Tartrate [Lopressor] 25 mg PO BID@0700,1600 01/06/23 [History] Atorvastatin [Lipitor] 40 mg PO HS tab 01/08/23 [Rx] Gabapentin [Neurontin] 400 mg PO TID@0700,1300,1900 #10 cap 01/08/23 [Rx] HYDROcodone/APAP 5-325MG [[place] 5-325] 1 tab PO Q6H #7 tab 01/08/23 [Rx] INSULIN ASPART (NovoLOG) [NovoLOG (formulary)] 0 unit SQ ACHS each 01/08/23 [Rx] Nystatin 100,000 Unit/gm Powd [Mycostatin Powder] 1 applic TOPICAL TID each 01/08/23 [Rx] Follow up Appointment(s)/Referral(s): Nabila Chowdhury DO [Primary Care Provider] - 1-2 days Savi Jacobsen MD [REFERRING] - 1 Week Ambulatory/Diagnostic Orders: Basic Metabolic Panel [LAB.AMB] Time Frame: 3 Days, Location: None Selected Activity/Diet/Wound Care/Special Instructions: Follow up with Neurology on discharge Follow up with your PCP Dr Nabila Chowdhury Patient to return to [facility] Discharge Disposition: TRANSFER TO SNF/F
[2023-01-08 16:35] LABS: Glucose,Whole Blood 179 mg/dL (70-110)
[2023-01-08] MEDS: PANTOPRAZOLE 40 MG TABLET PO SCH (20:28)
[2023-01-08] MEDS: LATANOPROST 0.005% OPHTH DROPS 2.5 ML BTL LEFT EYE SCH (20:28)
[2023-01-08] MEDS: ATORVASTATIN 40 MG TAB PO SCH (20:28)
[2023-01-08] MEDS: PRIMIDONE 50 MG TAB PO SCH (20:29)
[2023-01-08] MEDS: TAMSULOSIN 0.4 MG CAP.ER.24H PO SCH (20:29)
[2023-01-08] MEDS: PARoxetine 10 MG TAB PO SCH (20:29)
[2023-01-08 20:33] LABS: Glucose,Whole Blood 154 mg/dL (70-110)
[2023-01-09 06:11] LABS: Glucose,Whole Blood 118 mg/dL (70-110)
[2023-01-09] MEDS: INSULIN ASPART (NovoLOG) 100 UNIT/ML VIAL SQ SCH ×4 (06:30→20:59)
[2023-01-09] MEDS: GABAPENTIN 400 MG CAP PO SCH ×3 (06:36→18:24)
[2023-01-09] MEDS: METOPROLOL TARTRATE 25 MG TAB PO SCH ×2 (06:36→16:39)
[2023-01-09] MEDS: ASPIRIN 325 MG TAB PO SCH (09:07)
[2023-01-09] MEDS: APIXABAN 5 MG TAB PO SCH ×2 (09:07→20:58)
[2023-01-09] MEDS: BUMETANIDE 1 MG TAB PO SCH ×2 (09:07→20:59)
[2023-01-09] MEDS: ISOSORBIDE MONONITRATE ER 30 MG TAB.ER.24H PO SCH (09:07)
[2023-01-09 09:08] LABS: Basophils # (A) 0.1 k/uL (0-0.2); Basophils % (A) 1 %; Eosinophils # (A) 0.5 k/uL (0-0.7); Eosinophils % (A) 4 %; HCT 42.1 % (39.0-53.0); HGB 13.6 gm/dL (13.0-17.5); Lymphocytes # (A) 1.4 k/uL (1.0-4.8); Lymphocytes % (A) 12 %; MCH 30.2 pg (25.0-35.0); MCHC 32.4 g/dL (31.0-37.0); MCV 93.4 fL (80.0-100.0); Mean Platelet Volume 9.9; Monocytes # (A) 0.6 k/uL (0-1.0); Monocytes % (A) 6 %; Neutrophils # (A) 8.7 k/uL (1.3-7.7); Neutrophils % (A) 76 %; Platelet Count 191 k/uL (150-450); RDW 14.8 % (11.5-15.5); WBC 11.4 k/uL (3.8-10.6)
[2023-01-09] MEDS: glipiZIDE 5 MG TAB PO SCH ×2 (09:08→20:58)
[2023-01-09] MEDS: NYSTATIN 100,000 UNIT/GM POWD 15 GM TOPICAL SCH ×3 (09:08→21:17)
[2023-01-09] MEDS: METHYL SALICYLATE-MENTHOL OINT (3 OZ TUBE) TOPICAL SCH ×4 (09:08→21:17)
[2023-01-09] MEDS: RANOLAZINE 500 MG TAB.ER.12H PO SCH ×2 (09:13→20:58)
[2023-01-09] MEDS: SENNOSIDES 8.6 MG TAB PO SCH ×2 (09:13→21:00)
[2023-01-09 09:32] LABS: African American GFR (CKD) 58 (>60 ml/min/1.73 sqM); Anion Gap 12 mmol/L; Blood Urea Nitrogen 35 mg/dL (9-20); Calcium 9.4 mg/dL (8.4-10.2); Carbon Dioxide 29 mmol/L (22-30); Chloride 96 mmol/L (98-107); Glucose 140 mg/dL (74-99); Non-African American GFR(CKD) 50 (>60 ml/min/1.73 sqM); Sodium 137 mmol/L (137-145)
[2023-01-09 11:56] LABS: Glucose,Whole Blood 152 mg/dL (70-110)
--- NOTE | 2023-01-09 12:12 | P.PN ---
Subjective Progress Note Date: 01/09/23 I am following-up seeing the patient and he feels back to baseline. Denies of any new neurological issues. Objective - Vital Signs Vital signs: Vital Signs Temp 97.5 F L 01/09/23 09:06 Pulse 69 01/09/23 09:06 Resp 18 01/09/23 09:06 BP 105/69 01/09/23 09:06 Pulse Ox 100 01/09/23 09:06 FiO2 Intake & Output 01/08/23 01/09/23 01/09/23 18:59 06:59 18:59 Intake Total 540 Output Total 1900 1400 Balance -1900 -1400 540 Intake: Oral 540 Output: Urine 1900 1400 Other: Voiding Method External Catheter External Catheter External Catheter # Bowel Movements 1 1 - Exam GENERAL: The patient is lying in bed and is not in acute distress. NEUROLOGICAL: Higher mental function: The patient is awake, alert, oriented to self and time. He stated he was in the intermediate. He is able to identify objects (pen, watch, glasses). Patient is following commands. No aphasia and no neglect. Cranial nerves: The pupils are round, equal and reactive to light. Visual schmidt are full to confrontation throughout. Extraocular movement is intact no nystagmus is noted. Facial sensation is decreased to touch over the right side (stated old). Right lower facial droop that is mild to moderate in severity (old). No dysarthria. Hearing is moderately decreased bilaterally to hand rub. Tongue is midline and moved [id number] without any difficulty. Motor: The strength is has significant weakness over the right side with incre ase tone. While left upper is 5/5. Left lower is limited because of hip and knee pain but had antigravity. Has edema over the right ankle that seems significant. Cerebellum: Normal finger to nose on left. Otherwise limited. Sensation: Sensation is decreased to touch over the right side (old) Reflexes (right/left): 3+ over the right upper. 2+ left uppers. Lowers are hard to assess because of body habitus. Plantars are mute bilaterally. Some other workup during this hospital visit consisted of: Lipid panel: Triglyceride is 169, cholesterol is 133, LDL is 67 and HDL is 31. Hemoglobin A1c is 7.9. TSH is 0.785. Hemoglobin A1c 7.9 CT of the head is reported as no acute intracranial finding. If acute intracranial infarction remains a concern, MRI may help to further evaluate for patient is a candidate. Personally reviewed the CT of the head and there is no acute or subacute ischemia that's appreciable. She has had old lacunar stroke over bilateral basal ganglia left more than the right. CT angiography of the neck was reported as bilateral carotid, vertebral and subclavian arteries are patent. CT angiography of the head is reported as no acute finding and the arteries of the head/brain. 2-D echo was reported as technically difficult study. Normal left ventricle size and systolic function. Limited echo study with the mild monitor aortic regurgitation. MRI Brain and reported as atrophy with scattered chronic periventricular white matter ischemic changes. No acute intracranial process. I personally reviewed MRI and agree there is no acute or subacute ischemic changes. - Labs CBC & Chem 7: 01/09/23 08:55 01/09/23 08:55 Labs: Abnormal Lab Results - Last 24 Hours (Table) 01/08/23 01/08/23 01/08/23 Range/Units 12:42 16:33 20:30 WBC (3.8-10.6) k/uL Neutrophils # (1.3-7.7) k/uL Chloride (98-107) mmol/L BUN (9-20) mg/dL Creatinine (0.66-1.25) mg/dL Glucose (74-99) mg/dL POC Glucose (mg/dL) 199 H 179 H 154 H (70-110) mg/dL 01/09/23 01/09/23 01/09/23 Range/Units 06:10 08:55 08:55 WBC 11.4 H (3.8-10.6) k/uL Neutrophils # 8.7 H (1.3-7.7) k/uL Chloride 96 L (98-107) mmol/L BUN 35 H (9-20) mg/dL Creatinine 1.34 H (0.66-1.25) mg/dL Glucose 140 H (74-99) mg/dL POC Glucose (mg/dL) 118 H (70-110) mg/dL 01/09/23 Range/Units 11:54 WBC (3.8-10.6) k/uL Neutrophils # (1.3-7.7) k/uL Chloride (98-107) mmol/L BUN (9-20) mg/dL Creatinine (0.66-1.25) mg/dL Glucose (74-99) mg/dL POC Glucose (mg/dL) 152 H (70-110) mg/dL Assessment and Plan Assessment: This is a 77-year-old gentleman who presented emergency department because of aphasia and not following commands over at his nursing facility. His initial NIH stroke scale was a 30 that his symptoms resolved within 18 minutes into the ER stay. According to patient he also noticed that he's having weakness of bilateral lower extremity (bilateral). Acute aphasia that was transient seems due to transient ischemic attack. MRI Brain is negative for acute or subacute ischemic stroke. Left lower extremity is limited because of hip pain and knee pain. History of multiple stroke with significant right hemiparesis, has spasticity o jordon the right upper, right facial droop and decreased sensation over the right side. A CT of the head patient has bilateral basal ganglia ischemic stroke left more than the right Underlying history of atrial fibrillation on eliquis Hyperlipidemia Morbid Obesity Plan: The patient was started on aspirin 325 daily by the ED physician I started the patient on Lipitor 40 mg daily at bedtime. Patient is resumed on his home dose of Eliquis 5 mg twice a day Continue neuro checks Cardiac monitoring PT OT and FISHING WORKER are consulted Pending Lipid panel. We'll defer the rest of the medical management to primary team DVT prophylaxis: On eliquis. Patient needs to follow-up with a neurologist as outpatient within 2 weeks. The plan discussed with the patient and the N.P. from primary team. There is no further neurological work-up. Will sign off. Please reconsult if needed. Time with Patient: Less than 30
--- NOTE | 2023-01-09 16:03 | P.PN ---
Subjective Progress Note Date: 01/09/23 77-year-old male came in with complaints of speech difficulty patient does have a chronic weakness and hemiparesis on the right side from his previous stroke patient is on anticoagulation with Eliquis for atrial fibrillation. Patient denied any other weakness his symptoms resolved few minutes after arrival to ER patient is a residential resident. Patient has creatinine of 1.5. Baseline is around 1. Patient does have history of discharge failure chronic diastolic dysfunction. Patient does have history of coronary artery disease patient doesn't creatinine is 1.5. 01/07/2023 Patient is evaluated today resting in bed. His symptoms of aphasia have resolved at this time and he is currently alert 3. Patient underwent an echocardiogram revealing an EF of 55-60% with mild mitral and aortic re gurgitation. Additional testing done within the stroke workup includes a brain CT and CT angiography. The brain CT is negative for acute findings. CT angiography reveals bilateral carotid vertebral and subclavian arteries are patent there is a small amount of patchy groundglass opacities in the visualized lungs can be due to underinflation versus a mild pulmonary edema. He had a chest x-ray done showing possible mild congestion and probable mild bibasilar atelectasis. He was continued on eliquis twice a day. Patient does have chronic renal disease with a creatinine of 1.62 today he is continued IV Bumex however we'll recommend to hold the afternoon dose and patient will be transitioned to oral Bumex tomorrow. He is on 3 L of oxygen at this time. Hemoglobin A1c is 7.9. Troponin is negative. 01/09/2023 Patient was resting in bed no acute complaints at this time. He continues on to 3 L of nasal cannula and using incentive spirometer appropriately. He underwent brain MRI which reveals atrophy with scattered chronic periventricular white matter ischemic changes with no acute intracranial process. Symptoms and the patient has completely resolved at this time. He continues with his chronic right hemiparesis from his prior stroke. Patient to be discharged to the [facility] however there was an issue with his insurance and discharge was held until Tuesday. Review of Systems Constitutional: Denied any fatigue denied any fever. Cardio vascular: denied any chest pain, palpitations Gastrointestinal: denied any nausea, vomiting, diarrhea Pulmonary: Denied any shortness of breath cough Neurologic denied any new focal deficits All inpatient medications were reviewed and appropriate changes in these medications as dictated in the interval history and assessment and plan. PHYSICAL EXAMINATION: GENERAL: The patient is alert and oriented x3, not in any acute distress. Well developed, well nourished. On 3L of oxygen. Pale. HEENT: Pupils are round and equally reacting to light. EOMI. No scleral icterus. No conjunctival pallor. Normocephalic, atraumatic. No pharyngeal erythema. No thyromegaly. CARDIOVASCULAR: S1 and S2 present. No murmurs, rubs, or gallops. PULMONARY: Chest is clear to auscultation, no wheezing or crackles. ABDOMEN: Soft, nontender, nondistended, normoactive bowel sounds. No palpable organomegaly. MUSCULOSKELETAL: No joint swelling or deformity. EXTREMITIES: No cyanosis, clubbing, or pedal edema. NEUROLOGICAL: Gross neurological examination did not reveal any focal deficits. Generalized weakness. Right upper extremity weakness and right facial droop. Old. SKIN: No rashes. Sacral Decub. 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 Oxygen saturations are 98% and this can be weaned tolerated. Will provide patient with incentive spirometer. Continue neuro checks. Transitioned back to oral Bumex, patient is on atorvastatin, eliquis 5 twice a day and aspirin 81 daily for primary stroke prevention. Discharge back to the [facility] wihin the next 24 hours. The impression and plan of care has been dictated by Edel Alcocer, Nurse Practitioner as directed. Dr. Sharonda MD I have performed a history and physical examination and medical decision making of this patient, discussed the same with the dictator, and agree with the dictators assessment and plan as written, documented as a scribe. Based on total visit time, I have performed more than 50% of this visit. Objective - Vital Signs Vital signs: Vital Signs Temp 97.5 F L 01/09/23 09:06 Pulse 84 01/09/23 12:21 Resp 18 01/09/23 12:21 BP 106/64 01/09/23 12:21 Pulse Ox 96 01/09/23 12:21 FiO2 Intake & Output 01/08/23 01/09/23 01/09/23 18:59 06:59 18:59 Intake Total 1260 Output Total 1900 1400 900 Balance -1900 -1400 360 Intake: Oral 1260 Output: Urine 1900 1400 900 Other: Voiding Method External Catheter External Catheter External Catheter # Bowel Movements 1 1 - Labs CBC & Chem 7: 01/09/23 08:55 01/09/23 08:55 Labs: Abnormal Lab Results - Last 24 Hours (Table) 01/08/23 01/08/23 01/09/23 Range/Units 16:33 20:30 06:10 WBC (3.8-10.6) k/uL Neutrophils # (1.3-7.7) k/uL Chloride (98-107) mmol/L BUN (9-20) mg/dL Creatinine (0.66-1.25) mg/dL Glucose (74-99) mg/dL POC Glucose (mg/dL) 179 H 154 H 118 H (70-110) mg/dL 01/09/23 01/09/23 01/09/23 Range/Units 08:55 08:55 11:54 WBC 11.4 H (3.8-10.6) k/uL Neutrophils # 8.7 H (1.3-7.7) k/uL Chloride 96 L (98-107) mmol/L BUN 35 H (9-20) mg/dL Creatinine 1.34 H (0.66-1.25) mg/dL Glucose 140 H (74-99) mg/dL POC Glucose (mg/dL) 152 H (70-110) mg/dL Assessment and Plan Time with Patient: Less than 30
[2023-01-09 16:36] LABS: Glucose,Whole Blood 187 mg/dL (70-110)
[2023-01-09 20:22] LABS: Glucose,Whole Blood 163 mg/dL (70-110)
[2023-01-09] MEDS: PRIMIDONE 50 MG TAB PO SCH (20:58)
[2023-01-09] MEDS: PANTOPRAZOLE 40 MG TABLET PO SCH (20:58)
[2023-01-09] MEDS: TAMSULOSIN 0.4 MG CAP.ER.24H PO SCH (20:59)
[2023-01-09] MEDS: PARoxetine 10 MG TAB PO SCH (20:59)
[2023-01-09] MEDS: LATANOPROST 0.005% OPHTH DROPS 2.5 ML BTL LEFT EYE SCH (20:59)
[2023-01-09] MEDS: ATORVASTATIN 40 MG TAB PO SCH (20:59)
[2023-01-10 03:53] VITALS: RESP 18
[2023-01-10 06:12] LABS: Glucose,Whole Blood 117 mg/dL (70-110)
[2023-01-10] MEDS: INSULIN ASPART (NovoLOG) 100 UNIT/ML VIAL SQ SCH ×2 (06:48→12:04)
[2023-01-10] MEDS: METOPROLOL TARTRATE 25 MG TAB PO SCH (06:51)
[2023-01-10] MEDS: GABAPENTIN 400 MG CAP PO SCH ×2 (06:51→12:04)
[2023-01-10] MEDS: glipiZIDE 5 MG TAB PO SCH (09:24)
[2023-01-10] MEDS: APIXABAN 5 MG TAB PO SCH (09:24)
[2023-01-10] MEDS: ISOSORBIDE MONONITRATE ER 30 MG TAB.ER.24H PO SCH (09:24)
[2023-01-10] MEDS: SENNOSIDES 8.6 MG TAB PO SCH (09:24)
[2023-01-10] MEDS: ASPIRIN 325 MG TAB PO SCH (09:24)
[2023-01-10] MEDS: BUMETANIDE 1 MG TAB PO SCH (09:24)
[2023-01-10] MEDS: NYSTATIN 100,000 UNIT/GM POWD 15 GM TOPICAL SCH (09:25)
[2023-01-10] MEDS: METHYL SALICYLATE-MENTHOL OINT (3 OZ TUBE) TOPICAL SCH ×2 (09:25→13:56)
[2023-01-10] MEDS: RANOLAZINE 500 MG TAB.ER.12H PO SCH (09:27)
[2023-01-10 09:45] VITALS: BP 112/64; TEMP 97.8
--- NOTE | 2023-01-10 11:22 | P.DS ---
Providers Date of admission: 01/07/23 05:10 Expected date of discharge: 01/10/23 Attending physician: Maylin Luis Consults: 01/06/23 07:07 Consult Physician Urgent Consulting Provider: Tristan Shoemaker Consult Reason/Comments: acute aphasia, acute tia, hx cva Do you want consulting provider notified?: Yes Primary care physician: Nabila Chowdhury DO Hospital Course: Final Diagnosis Possible transient ischemic attack with acute aphasia resolved at this time and work up is negative History of atrial fibrillation anticoagulated with eliquis Acute renal failure likely due to prerenal azotemia from congestive heart failure exacerbation Congestive heart failure chronic diastolic dysfunction with mild acute exacerbation Coronary artery disease History of CVA with right hemiparesis Hyperlipidemia 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 Stroke work up is completed and neurology has cleared the patient for discharge. Patient needs to follow up with a neurologist on discharge in 1 weeks time. Patient is given script to repeat labs in 2 to 3 days to monitor renal function. Hospital Course This is a 77-year-old male with medical history of stroke, atrial fibrillation anticoagulated with eliquis, heart failure, coronary artery disease, diabetes mellitus and peripheral neuropathy, renal disease, chronic medical debility. Patient came in with complaints of speech difficulty. Patient does have chronic weakness and hemiparesis on the right side from his previous stroke and he uses a wheel chair and to lift at baseline. Patient denied any other weakness his symptoms resolved few minutes after arrival to ER. Patient has creatinine of 1. 5. Baseline is around 1. Patient does have history of discharge failure chronic diastolic dysfunction. Patient underwent an echocardiogram revealing an EF of 55-60% with mild mitral and aortic regurgitation. Additional testing done within the stroke workup includes a brain CT and CT angiography. The brain CT is negative for acute findings. CT angiography reveals bilateral carotid vertebral and subclavian arteries are patent there is a small amount of patchy groundglass opacities in the visualized lungs can be due to underinflation versus a mild pulmonary edema. He had a chest x-ray done showing possible mild congestion and probable mild bibasilar atelectasis. He was given IV Bumex without much improvement in the kidney function and continues have some nasal cannula which patient states that he is chronically at this time. His creatinine today is 1.29 after he was transitioned back to oral Bumex. He had a fasting lipid panel done showing triglyceride level of 169, sodium level 133, LDL 67, HDL of 31.9. TSH is 0.75. Troponin level was negative. Hemoglobin A1c of 7.9. She had a brain MRI to complete the stroke workup reveals atrophy with chronic scattered periventricular white matter ischemic changes and no acute intracranial process. It was reviewed by the neurologist was cleared patient for discharge. Currently patient is denying shortness of breath, denying chest pain no new focal neurological deficits. Patients lungs are clear on 3L nasal cannula. S1 S2 auscultated abdomen is soft and nontender. He is alert x 3. He is at baseline. He will be discharged home. Recommending to hold off lisinopril on discharge due to the renal dysfunction and monitor blood pressure closely. 01/10/2023 Insurance authorization has been approved and patient will be going to [facility] today. Guarded prognosis. Physical exam: Gen: This is a 77-year-old male who is awake, alert and oriented, well- developed, well-nourished, morbidly obese HEENT: Head is atraumatic, normocephalic. Pupils equal, round. Sclerae is anicteric. NECK: Supple. No JVD. No lymphadenopathy. No thyromegaly. LUNGS: Diminished breath sounds bilaterally No wheezes or rhonchi. No intercostal retractions. HEART: S1, S2 are muffled ABDOMEN: Soft. Obese Bowel sounds are present. No masses. No tenderness. EXTREMITIES: No pedal edema. No calf tenderness. NEUROLOGICAL: Patient is awake, alert and oriented x3. Cranial nerves 2 through 12 are grossly intact. Diffusely weak Please see medication reconciliation for a list of current medication. Thank you for allowing us to participate in the care of this patient. The impression and plan of care has been dictated by Yaritza Roberto, Nurse Practitioner as directed. Dr. Toby MD I have performed a history and examination and MDM of this patient, discussed the same with the dictator, and agree with the dictator's assessment and plan as written ,documented as a scribe. Based on total visit time, I have performed more than 50% of the visit. Patient Condition at Discharge: Fair Plan - Discharge Summary New Discharge Prescriptions: New INSULIN ASPART (NovoLOG) [NovoLOG (formulary)] 0 unit SQ ACHS each Atorvastatin [Lipitor] 40 mg PO HS tab Nystatin 100,000 Unit/gm Powd [Mycostatin Powder] 1 applic TOPICAL TID each Continue Cholecalciferol [Vitamin D3 (25 Mcg = 1000 Iu)] 25 mcg PO DAILY Sennosides [Senokot] 8.6 mg PO HS polyethylene glycoL 3350 [Miralax] 17 gm PO DAILY PARoxetine [Paxil] 10 mg PO HS Omeprazole 20 mg PO HS Tamsulosin [Flomax] 0.4 mg PO HS Nitroglycerin Sl Tabs [Nitrostat] 0.4 mg SL Q5M PRN PRN Reason: Chest Pain Apixaban [Eliquis] 5 mg PO BID Multivitamins, Thera [Multivitamin (formulary)] 1 tab PO DAILY Docusate [Colace] 100 mg PO BID@0700,1600 glipiZIDE XL [Glucotrol XL] 10 mg PO DAILY@0600 Baclofen 10 mg PO TID@0700,1300,1900 Menthol [Biofreeze] 1 applic TOPICAL QID Menthol [Biofreeze] 1 applic TOPICAL Q8H PRN PRN Reason: left knee pain HYDROcodone/APAP 5-325MG [[place] 5-325] 1 tab PO Q6H #7 tab Sennosides [Senokot] 17.2 mg PO DAILY Primidone [Mysoline] 50 mg PO HS Latanoprost/Pf [Latanoprost 0.005% Eye Drop] 1 drop LEFT EYE HS Atorvastatin [Lipitor] 40 mg PO HS Isosorbide Mononitrate ER [Imdur] 30 mg PO DAILY #30 tab Acetaminophen Tab [Tylenol] 1,000 mg PO BID PRN PRN Reason: Pain glipiZIDE XL [Glucotrol XL] 5 mg PO DAILY@1400 Ranolazine [Ranexa] 500 mg PO BID Bumetanide [BUMEX] 2 mg PO BID Hydrocortisone 1% Lotion 1 applic TOPICAL BID Metoprolol Tartrate [Lopressor] 25 mg PO BID@0700,1600 Gabapentin [Neurontin] 400 mg PO TID@0700,1300,1900 #10 cap Discontinued lisinopriL [Zestril] 5 mg PO DAILY Potassium Chloride ER [K-Dur 20] 20 meq PO DAILY Discharge Medication List Cholecalciferol [Vitamin D3 (25 Mcg = 1000 Iu)] 25 mcg PO DAILY 01/17/22 [History] Latanoprost/Pf [Latanoprost 0.005% Eye Drop] 1 drop LEFT EYE HS 01/17/22 [History] Omeprazole 20 mg PO HS 01/17/22 [History] PARoxetine [Paxil] 10 mg PO HS 01/17/22 [History] Primidone [Mysoline] 50 mg PO HS 01/17/22 [History] Sennosides [Senokot] 8.6 mg PO HS 01/17/22 [History] Sennosides [Senokot] 17.2 mg PO DAILY 01/17/22 [History] Tamsulosin [Flomax] 0.4 mg PO HS 01/17/22 [History] polyethylene glycoL 3350 [Miralax] 17 gm PO DAILY 01/17/22 [History] Atorvastatin [Lipitor] 40 mg PO HS 03/01/22 [History] Nitroglycerin Sl Tabs [Nitrostat] 0.4 mg SL Q5M PRN 03/01/22 [History] Apixaban [Eliquis] 5 mg PO BID 08/04/22 [History] Multivitamins, Thera [Multivitamin (formulary)] 1 tab PO DAILY 08/04/22 [History] Isosorbide Mononitrate ER [Imdur] 30 mg PO DAILY #30 tab 08/12/22 [Rx] Acetaminophen Tab [Tylenol] 1,000 mg PO BID PRN 09/07/22 [History] Docusate [Colace] 100 mg PO BID@0700,1600 09/07/22 [History] Ranolazine [Ranexa] 500 mg PO BID 09/07/22 [History] glipiZIDE XL [Glucotrol XL] 5 mg PO DAILY@1400 09/07/22 [History] glipiZIDE XL [Glucotrol XL] 10 mg PO DAILY@0600 09/07/22 [History] Baclofen 10 mg PO TID@0700,1300,1900 01/06/23 [History] Bumetanide [BUMEX] 2 mg PO BID 01/06/23 [History] Hydrocortisone 1% Lotion 1 applic TOPICAL BID 01/06/23 [History] Menthol [Biofreeze] 1 applic TOPICAL Q8H PRN 01/06/23 [History] Menthol [Biofreeze] 1 applic TOPICAL QID 01/06/23 [History] Metoprolol Tartrate [Lopressor] 25 mg PO BID@0700,1600 01/06/23 [History] Atorvastatin [Lipitor] 40 mg PO HS tab 01/08/23 [Rx] Gabapentin [Neurontin] 400 mg PO TID@0700,1300,1900 #10 cap 01/08/23 [Rx] HYDROcodone/APAP 5-325MG [[place] 5-325] 1 tab PO Q6H #7 tab 01/08/23 [Rx] INSULIN ASPART (NovoLOG) [NovoLOG (formulary)] 0 unit SQ ACHS each 01/08/23 [Rx] Nystatin 100,000 Unit/gm Powd [Mycostatin Powder] 1 applic TOPICAL TID each 01/08/23 [Rx] Follow up Appointment(s)/Referral(s): Nabila Chowdhury DO [Primary Care Provider] - 1-2 days aSvi Jacobsen MD [REFERRING] - 1 Week Ambulatory/Diagnostic Orders: Basic Metabolic Panel [LAB.AMB] Time Frame: 3 Days, Location: None Selected Activity/Diet/Wound Care/Special Instructions: Follow up with Neurology on discharge Follow up with your PCP Dr Nabila Chowdhury Patient to return to [facility] Discharge Disposition: TRANSFER TO SNF/F
[2023-01-10 11:27] LABS: Glucose,Whole Blood 166 mg/dL (70-110)
[2023-01-10 12:39] VITALS: PULSE 71
== END 2023-01-10 15:08 | DRG 302 ==
LOC: EC 05:44 → 3SCARD 07:06 → OBSVTOIN 01-07 05:10 → 3SCARD 01-07 21:32
PROVIDERS: ADMIT Hospitalist; ATTEND Hospitalist
DX: I25.10 Atherosclerotic heart disease of native coronary artery without angina pectoris (principal); I50.33 Acute on chronic diastolic (congestive) heart failure; G45.9 Transient cerebral ischemic attack, unspecified; I13.0 Hypertensive heart and chronic kidney disease with heart failure and stage 1 through stage 4 chronic kidney disease, or unspecified chronic kidney disease; N17.9 Acute kidney failure, unspecified; Z68.41 Body mass index [BMI] 40.0-44.9, adult; I69.351 Hemiplegia and hemiparesis following cerebral infarction affecting right dominant side; R79.89 Other specified abnormal findings of blood chemistry; E66.01 Morbid (severe) obesity due to excess calories; I08.0 Rheumatic disorders of both mitral and aortic valves; I69.320 Aphasia following cerebral infarction; E11.21 Type 2 diabetes mellitus with diabetic nephropathy; I69.392 Facial weakness following cerebral infarction; E11.42 Type 2 diabetes mellitus with diabetic polyneuropathy; E78.5 Hyperlipidemia, unspecified; M25.552 Pain in left hip; I08.2 Rheumatic disorders of both aortic and tricuspid valves; M25.562 Pain in left knee; L89.159 Pressure ulcer of sacral region, unspecified stage; E11.22 Type 2 diabetes mellitus with diabetic chronic kidney disease; N18.2 Chronic kidney disease, stage 2 (mild); G89.29 Other chronic pain; M54.50 Low back pain, unspecified; Z99.3 Dependence on wheelchair; Z79.84 Long term (current) use of oral hypoglycemic drugs; I48.91 Unspecified atrial fibrillation; Z79.01 Long term (current) use of anticoagulants; Z79.899 Other long term (current) drug therapy
CPT/HCPCS: 36415; 70450; 70496; 70498; 70551; 71045; 80048; 80053; 80061; 82550; 83036; 83735; 83880; 84443; 84484; 85025; 85610; 85730; 93005; 93306; 94760; 96374; 99291

== ENCOUNTER 2023-01-21 15:18 | Observation (INO) | payer MEDICARE, OTHER ==
[2023-01-21] MEDS ORDERED: SODIUM CHLORIDE 0.9% 1,000 ML IV STA (16:21)
--- NOTE | 2023-01-21 16:22 | ED ---
Altered Mental Status HPI - General Chief Complaint: Altered Mental Status Stated Complaint: AMS Time Seen by Provider: 01/21/23 16:15 Source: patient, EMS, RN notes reviewed, old records reviewed Mode of arrival: EMS Limitations: altered mental status, physical limitation - History of Present Illness Initial Comments: This is a 77-year-old male poor historian. Patient was sent in by EMS for weakness altered mental status with unknown baseline. Patient does not participate history of present illness. MD Complaint: altered mental status, confusion, decreased responsiveness, weakness -: unknown Severity: severe Consistency of Symptoms: constant Context: history of similar presentation - Related Data Home Medications Medication Instructions Recorded Confirmed Cholecalciferol [Vitamin D3 (25 25 mcg PO DAILY@0600 01/17/22 01/21/23 Mcg = 1000 Iu)] Omeprazole 20 mg PO HS@199901/17/22 01/21/23 PARoxetine [Paxil] 10 mg PO HS@199901/17/22 01/21/23 Primidone [Mysoline] 50 mg PO HS@199901/17/22 01/21/23 Sennosides [Senokot] 8.6 mg PO HS@199901/17/22 01/21/23 Sennosides [Senokot] 17.2 mg PO DAILY 01/17/22 01/21/23 Tamsulosin [Flomax] 0.4 mg PO HS@199901/17/22 01/21/23 polyethylene glycoL 3350 [Miralax] 17 gm PO DAILY 01/17/22 01/21/23 Atorvastatin [Lipitor] 40 mg PO HS@199903/01/22 01/21/23 Nitroglycerin Sl Tabs [Nitrostat] 0.4 mg SL Q5M PRN 03/01/22 01/21/23 Apixaban [Eliquis] 5 mg PO BID 08/04/22 01/21/23 Multivitamins, Thera [Multivitamin 1 tab PO DAILY 08/04/22 01/21/23 (formulary)] Acetaminophen Tab [Tylenol] 1,000 mg PO BID PRN 09/07/22 01/21/23 Docusate [Colace] 100 mg PO BID@0700,1600 09/07/22 01/21/23 Ranolazine [Ranexa] 500 mg PO BID@0700,1900 09/07/22 01/21/23 Bumetanide [BUMEX] 2 mg PO BID 01/06/23 01/21/23 Menthol [Biofreeze] 1 applic TOPICAL Q8H PRN 01/06/23 01/21/23 Menthol [Biofreeze] 1 applic TOPICAL QID@05,,,01/06/23 01/21/23 Metoprolol Tartrate [Lopressor] 25 mg PO BID@0700,1900 01/06/23 01/21/23 Amino Acids/Protein Hydrolys 30 ml PO DAILY 01/21/23 01/21/23 [Pro-Stat Awc Liquid] Nystatin 100,000 Unit/gm Powd 1 applic TOPICAL BID 01/21/23 01/21/23 [Mycostatin Powder] glipiZIDE [Glucotrol] 5 mg PO HS 01/21/23 01/21/23 glipiZIDE [Glucotrol] 10 mg PO DAILY 01/21/23 01/21/23 Previous Rx's Medication Instructions Recorded Isosorbide Mononitrate ER [Imdur] 30 mg PO DAILY #30 tab 08/12/22 Amoxic-Pot Clav 875-125Mg 1 each PO Q12HR 5 Days #10 tab 01/25/23 [Augmentin 875-125] Baclofen 10 mg PO TID@0700,1300,1900 3 Days 01/25/23 #9 tab Gabapentin [Neurontin] 400 mg PO TID@0700,1300,1900 3 01/25/23 Days #9 cap HYDROcodone/APAP 5-325MG [[place] 1 tab PO QID@05,,, 3 Days 01/25/23 5-325] #12 tab Allergies Allergy/AdvReac Type Severity Reaction Status Date / Time No Known Allergies Allergy Verified 01/21/23 18:32 Review of Systems ROS Statement: Those systems with pertinent positive or pertinent negative responses have been documented in the HPI. ROS Other: All systems not noted in ROS Statement are negative. Past Medical History Past Medical History: Chest Pain / Angina, CVA/TIA, Hyperlipidemia Additional Past Medical History / Comment(s): STROKE IN 2008 History of Any Multi-Drug Resistant Organisms: None Reported Past Surgical History: Appendectomy, Orthopedic Surgery Past Anesthesia/Blood Transfusion Reactions: No Reported Reaction Past Psychological History: No Psychological Hx Reported, Depression Smoking Status: Never smoker Past Alcohol Use History: None Reported Past Drug Use History: None Reported General Exam General appearance: alert, in no apparent distress Head exam: Present: atraumatic, normocephalic, normal inspection Eye exam: Present: normal appearance, PERRL, EOMI. Absent: scleral icterus, conjunctival injection, periorbital swelling ENT exam: Present: normal exam, mucous membranes moist Neck exam: Present: normal inspection. Absent: tenderness, meningismus, lymphadenopathy Respiratory exam: Present: normal lung sounds bilaterally. Absent: respiratory distress, wheezes, rales, rhonchi, stridor Cardiovascular Exam: Present: regular rate, normal rhythm, normal heart sounds. Absent: systolic murmur, diastolic murmur, rubs, gallop, clicks GI/Abdominal exam: Present: soft, normal bowel sounds. Absent: distended, te nderness, guarding, rebound, rigid Extremities exam: Present: normal inspection, full ROM, normal capillary refill. Absent: tenderness, pedal edema, joint swelling, calf tenderness Back exam: Present: normal inspection Neurological exam: Present: alert, oriented X3, CN II-XII intact Psychiatric exam: Present: normal affect, normal mood Skin exam: Present: warm, dry, intact, normal color. Absent: rash Course Vital Signs 01/21/23 01/21/23 01/21/23 16:05 18:26 20:33 Temperature 99.1 F Pulse Rate 90 94 87 Respiratory 18 19 18 Rate Blood Pressure 133/64 139/79 150/89 O2 Sat by Pulse 98 100 99 Oximetry 01/21/23 21:38 Temperature Pulse Rate 67 Respiratory 20 Rate Blood Pressure 145/75 O2 Sat by Pulse 96 Oximetry - Reevaluation(s) Reevaluation #1: 01/21/23 20:08 Medical record is reviewed Reevaluation #2: 01/21/23 20:12 Patient has no change in symptoms here in the ER Reevaluation #3: 01/21/23 20:13 Patient informed of results questions answered Reevaluation #4: 01/21/23 20:13 Was pt. sent in by a medical professional or institution (, PA, GRINDING MACHINE OPERATOR PORTABLE, urgent care, hospital, or group home...) When possible be specific @ -no Did you speak to anyone other than the patient for history (EMS, parent, family, police, friend...)? What history was obtained from this source @ -no Did you review nursing and triage notes (agree or disagree)? Why? @ -agree Are old charts reviewed (outside hosp., previous admission, EMS record, old EKG, old radiological studies, urgent care reports/EKG's, group home records)? Report findings @ -yes Differential Diagnosis (chest pain, altered mental status, abdominal pain women, abdominal pain men, vaginal bleeding, weakness, fever, dyspnea, syncope, headache, dizziness, GI bleed, back pain, seizure, CVA, palpatations, mental health, musculoskeletal)? @ -prior EKG interpreted by me (3pts min.). @ -yes X-rays interpreted by me (1pt min.). @ -yes CT interpreted by me (1pt min.). @ -yes U/S interpreted by me (1pt. min.). @ -no What testing was considered but not performed or refused? (CT, X-rays, U/S, labs)? Why? @ -none What meds were considered but not given or refused? Why? @ -none Did you discuss the management of the patient with other professionals (professionals i.e. , PA, GRINDING MACHINE OPERATOR PORTABLE, lab, RT, psych nurse, social services specialist, global sales manager, teacher, communications officer, director of casework department)? Give summary @ -no Was smoking cessation discussed for >3mins.? @ -no Was critical care preformed (if so, how long)? @ -no Were there social determinants of health that impacted care today? How? (Homelessness, low income, unemployed, alcoholism, drug addiction, transportation, low edu. Level, literacy, decrease access to med. care, custodial, rehab)? @ -none Was there de-escalation of care discussed even if they declined (Discuss DNR or withdrawal of care, Hospice)? DNR status @ -no What co-morbidities impacted this encounter? (DM, HTN, Smoking, COPD, CAD, Cancer, CVA, ARF, Chemo, Hep., AIDS, mental health diagnosis, sleep apnea, morbid obesity)? @ -none Was patient admitted / discharged? Hospital course, mention meds given and route, prescriptions, significant lab abnormalities, going to OR and other pertinent info. @ - 77 male to the emergency department for evaluation today. Patient presents today for evaluation of weakness. Patient unable to give accurate history otherwise in the ER, unsure this is baseline mental status. Patient will be admitted for elevated white blood cell count with acute kidney injury and dehydration. Admitted Undiagnosed new problem with uncertain prognosis? @ -no Drug Therapy requiring intensive monitoring for toxicity (Heparin, Nitro, Insulin, Cardizem)? @ -no Were any procedures done? @ -no Diagnosis/symptom? @ -Altered mental status Acute, or Chronic, or Acute on Chronic? @ -Acute Uncomplicated (without systemic symptoms) or Complicated (systemic symptoms)? @ -Complicated Side effects of treatment? @ -no Exacerbation, Progression, or Severe Exacerbation? @ -exacerbation Poses a threat to life or bodily function? How? (Chest pain, [place], [place], pneumonia, PE, COPD, DKA, ARF, appy, cholecystitis, CVA, Diverticulitis, Homicidal, Suicidal, threat to staff... and all critical care pts) @ -yes with significant extreme of age Reevaluation #5: 01/21/23 20:13 Differential Altered Mental Status: Hypoglycemia, DKA, hypercapnia, ETOH, overdose, CO poisoning, trauma, myxedema coma, HTN encephalopathy, infection, encephalitis, psychosis, intercranial hemorrhage, hepatic encephalopathy, meningitis, CVA, this is not meant to be an all-inclusive list - Consultations Consultation #1: Spoke with [facility] were agreeable admit this patient Medical Decision Making - Medical Decision Making 77 male to the emergency department for evaluation today. Patient presents today for evaluation of weakness. Patient unable to give accurate history otherwise in the ER, unsure this is baseline mental status. Patient will be admitted for elevated white blood cell count with acute kidney injury and dehydration. - Lab Data Result diagrams: 01/25/23 05:53 01/25/23 05:53 Lab Results 01/21/23 01/21/23 01/21/23 Range/Units 16:55 16:55 16:55 WBC 18.6 H (3.8-10.6) k/uL RBC 4.67 (4.30-5.90) m/uL Hgb 14.3 (13.0-17.5) gm/dL Hct 43.8 (39.0-53.0) % MCV 93.7 (80.0-100.0) fL MCH 30.5 (25.0-35.0) pg MCHC 32.6 (31.0-37.0) g/dL RDW 14.9 (11.5-15.5) % Plt Count 136 L (150-450) k/uL MPV 10.8 Neutrophils % 88 % Lymphocytes % 6 % Monocytes % 3 % Eosinophils % 1 % Basophils % 0 % Neutrophils # 16.4 H (1.3-7.7) k/uL Lymphocytes # 1.2 (1.0-4.8) k/uL Monocytes # 0.6 (0-1.0) k/uL Eosinophils # 0.3 (0-0.7) k/uL Basophils # 0.0 (0-0.2) k/uL PT 12.0 (9.0-12.0) sec INR 1.2 H (<1.2) APTT 25.7 (22.0-30.0) sec Sodium 140 (137-145) mmol/L Potassium 3.9 (3.5-5.1) mmol/L Chloride 98 (98-107) mmol/L Carbon Dioxide 30 (22-30) mmol/L Anion Gap 12 mmol/L BUN 43 H (9-20) mg/dL Creatinine 1.70 H (0.66-1.25) mg/dL Est GFR (CKD-EPI)AfAm 44 (>60 ml/min/1.73 sqM) Est GFR (CKD-EPI)NonAf 38 (>60 ml/min/1.73 sqM) Glucose 163 H (74-99) mg/dL Lactic Ac Sepsis Rflx Plasma Lactic Acid Bertram (0.7-2.0) mmol/L Calcium 9.3 (8.4-10.2) mg/dL Phosphorus 5.0 H (2.5-4.5) mg/dL Magnesium 2.1 (1.6-2.3) mg/dL Total Bilirubin 1.1 (0.2-1.3) mg/dL AST 19 (17-59) U/L ALT 17 (4-49) U/L Alkaline Phosphatase 105 (38-126) U/L Troponin I (0.000-0.034) ng/mL NT-Pro-B Natriuret Pep 1160 pg/mL Total Protein 9.1 H (6.3-8.2) g/dL Albumin 4.1 (3.5-5.0) g/dL TSH 0.375 L (0.465-4.680) mIU/L Coronavirus (PCR) (Not Detectd) 01/21/23 01/21/23 01/21/23 Range/Units 16:55 17:36 18:13 WBC (3.8-10.6) k/uL RBC (4.30-5.90) m/uL Hgb (13.0-17.5) gm/dL Hct (39.0-53.0) % MCV (80.0-100.0) fL MCH (25.0-35.0) pg MCHC (31.0-37.0) g/dL RDW (11.5-15.5) % Plt Count (150-450) k/uL MPV Neutrophils % % Lymphocytes % % Monocytes % % Eosinophils % % Basophils % % Neutrophils # (1.3-7.7) k/uL Lymphocytes # (1.0-4.8) k/uL Monocytes # (0-1.0) k/uL Eosinophils # (0-0.7) k/uL Basophils # (0-0.2) k/uL PT (9.0-12.0) sec INR (<1.2) APTT (22.0-30.0) sec Sodium (137-145) mmol/L Potassium (3.5-5.1) mmol/L Chloride (98-107) mmol/L Carbon Dioxide (22-30) mmol/L Anion Gap mmol/L BUN (9-20) mg/dL Creatinine (0.66-1.25) mg/dL Est GFR (CKD-EPI)AfAm (>60 ml/min/1.73 sqM) Est GFR (CKD-EPI)NonAf (>60 ml/min/1.73 sqM) Glucose (74-99) mg/dL Lactic Ac Sepsis Rflx Y Plasma Lactic Acid Bertram 2.2 H* (0.7-2.0) mmol/L Calcium (8.4-10.2) mg/dL Phosphorus (2.5-4.5) mg/dL Magnesium (1.6-2.3) mg/dL Total Bilirubin (0.2-1.3) mg/dL AST (17-59) U/L ALT (4-49) U/L Alkaline Phosphatase (38-126) U/L Troponin I <0.012 (0.000-0.034) ng/mL NT-Pro-B Natriuret Pep pg/mL Total Protein (6.3-8.2) g/dL Albumin (3.5-5.0) g/dL TSH (0.465-4.680) mIU/L Coronavirus (PCR) (Not Detectd) 01/21/23 Range/Units 18:56 WBC (3.8-10.6) k/uL RBC (4.30-5.90) m/uL Hgb (13.0-17.5) gm/dL Hct (39.0-53.0) % MCV (80.0-100.0) fL MCH (25.0-35.0) pg MCHC (31.0-37.0) g/dL RDW (11.5-15.5) % Plt Count (150-450) k/uL MPV Neutrophils % % Lymphocytes % % Monocytes % % Eosinophils % % Basophils % % Neutrophils # (1.3-7.7) k/uL Lymphocytes # (1.0-4.8) k/uL Monocytes # (0-1.0) k/uL Eosinophils # (0-0.7) k/uL Basophils # (0-0.2) k/uL PT (9.0-12.0) sec INR (<1.2) APTT (22.0-30.0) sec Sodium (137-145) mmol/L Potassium (3.5-5.1) mmol/L Chloride (98-107) mmol/L Carbon Dioxide (22-30) mmol/L Anion Gap mmol/L BUN (9-20) mg/dL Creatinine (0.66-1.25) mg/dL Est GFR (CKD-EPI)AfAm (>60 ml/min/1.73 sqM) Est GFR (CKD-EPI)NonAf (>60 ml/min/1.73 sqM) Glucose (74-99) mg/dL Lactic Ac Sepsis Rflx Plasma Lactic Acid Bertram (0.7-2.0) mmol/L Calcium (8.4-10.2) mg/dL Phosphorus (2.5-4.5) mg/dL Magnesium (1.6-2.3) mg/dL Total Bilirubin (0.2-1.3) mg/dL AST (17-59) U/L ALT (4-49) U/L Alkaline Phosphatase (38-126) U/L Troponin I (0.000-0.034) ng/mL NT-Pro-B Natriuret Pep pg/mL Total Protein (6.3-8.2) g/dL Albumin (3.5-5.0) g/dL TSH (0.465-4.680) mIU/L Coronavirus (PCR) Not Detected (Not Detectd) - Radiology Data Radiology results: report reviewed (CT brain and chest x-ray are negative for acute disease), image reviewed Disposition Clinical Impression: Altered mental status, Delirium due to general medical condition, Obesity, Leukocytosis Disposition: ADMITTED IP TO THIS HOSP Condition: Fair Is patient prescribed a controlled substance at d/c from ED?: No Time of Disposition: 20:00
[2023-01-21 17:06] LABS: Basophils % (A) 0 %; Eosinophils # (A) 0.3 k/uL (0-0.7); Eosinophils % (A) 1 %; HCT 43.8 % (39.0-53.0); HGB 14.3 gm/dL (13.0-17.5); Lymphocytes # (A) 1.2 k/uL (1.0-4.8); Lymphocytes % (A) 6 %; MCH 30.5 pg (25.0-35.0); MCHC 32.6 g/dL (31.0-37.0); MCV 93.7 fL (80.0-100.0); Mean Platelet Volume 10.8; Monocytes # (A) 0.6 k/uL (0-1.0); Monocytes % (A) 3 %; Neutrophils # (A) 16.4 k/uL (1.3-7.7); Neutrophils % (A) 88 %; Platelet Count 136 k/uL (150-450); RBC 4.67 m/uL (4.30-5.90); RDW 14.9 % (11.5-15.5); WBC 18.6 k/uL (3.8-10.6)
[2023-01-21 17:16] LABS: INR 1.2 (<1.2); Partial Thromboplastin Time 25.7 sec (22.0-30.0)
[2023-01-21 17:25] LABS: ALT 17 U/L (4-49); AST 19 U/L (17-59); African American GFR (CKD) 44 (>60 ml/min/1.73 sqM); Albumin 4.1 g/dL (3.5-5.0); Alkaline Phosphatase 105 U/L (38-126); Anion Gap 12 mmol/L; Blood Urea Nitrogen 43 mg/dL (9-20); Calcium 9.3 mg/dL (8.4-10.2); Carbon Dioxide 30 mmol/L (22-30); Chloride 98 mmol/L (98-107); Glucose 163 mg/dL (74-99); Magnesium 2.1 mg/dL (1.6-2.3); Non-African American GFR(CKD) 38 (>60 ml/min/1.73 sqM); Potassium 3.9 mmol/L (3.5-5.1); Sodium 140 mmol/L (137-145); Total Bilirubin 1.1 mg/dL (0.2-1.3); Total Protein 9.1 g/dL (6.3-8.2)
[2023-01-21 17:34] LABS: NT-Pro-B-Type Natriuretic Pept 1160 pg/mL
--- NOTE | 2023-01-21 17:57 | CT ---
EXAMINATION TYPE: CT brain wo con CT DLP: 1195.4 mGycm, Automated exposure control for dose reduction was used. DATE OF EXAM: 01/21/2023 5:49 PM COMPARISON: 01/06/2023. CLINICAL INDICATION:Male, 77 years old with history of ams, AMS TECHNIQUE: Brain: Axial CT images of the brain were obtained with coronal and sagittal reformats created and rev iewed. Contrast used: None. Oral contrast used: None. FINDINGS: Brain: Extra-axial spaces: No abnormal extra-axial fluid collections. Ventricular system: Dilatation in proportion to cerebral atrophy. Cerebral parenchyma: Cerebral atrophy. No acute intraparenchymal hemorrhage or mass effect. The cardoza -white junction is well differentiated. Scattered hypoattenuating areas are seen within the white mat ter. Cerebellum: Unremarkable. Mass effect: No evidence of midline shift. Intracranial vasculature: Atherosclerotic calcifications of the intracranial vessels. Soft tissues: Normal. Calvarium/osseous structures: No depressed skull fracture. Paranasal sinuses and mastoid air cells: Mild scattered paranasal sinus disease. Visualized orbits: Bilateral aphakia IMPRESSION: 1. No acute intracranial process. 2. Nonspecific white matter changes, likely secondary to chronic small vessel ischemic disease.
--- NOTE | 2023-01-21 18:56 | XR ---
EXAMINATION TYPE: XR chest 1V portable DATE OF EXAM: 01/21/2023 6:36 PM COMPARISON: Chest radiographs from 01/06/2023 TECHNIQUE: XR chest 1V portable Frontal view of the chest. CLINICAL INDICATION:Male, 77 years old with history of weak; FINDINGS: Lungs/Pleura: There is no evidence of pleural effusion, focal consolidation, or pneumothorax. Pulmonary vascularity: Pulmonary vascular congestion. Heart/mediastinum: Cardiomediastinal silhouette is enlarged and stable. Musculoskeletal: No acute osseous pathology. IMPRESSION: Cardiomegaly and mild pulmonary vascular congestion. Correlate with BNP for congestive heart failure.
[2023-01-21] MEDS ORDERED: NALOXONE 0.4 MG/ML 1 ML VIAL IV PRN (20:04)
[2023-01-21] MEDS ORDERED: ONDANSETRON 4 MG/2 ML VIAL IVP PRN (20:04)
[2023-01-21] MEDS ORDERED: MORPHINE SULFATE 4 MG/ML SYRINGE IV PRN (20:04)
[2023-01-21] MEDS: SODIUM CHLORIDE 0.9% 1,000 ML IV SCH (20:28)
[2023-01-21] MEDS ORDERED: DEXTROSE 50% SYRINGE 50 ML IVP PRN ×2 (20:37)
[2023-01-21 21:05] LABS: Glucose,Whole Blood 134 mg/dL (70-110)
[2023-01-21] MEDS: INSULIN ASPART (NovoLOG) 100 UNIT/ML VIAL SQ SCH (21:08)
[2023-01-21] MEDS ORDERED: polyethylene glycoL 3350 17 GM POWD.PACK PO PRN (21:20)
[2023-01-21] MEDS ORDERED: NITROGLYCERIN SL TABS 0.4 MG TAB SUBLINGUAL PRN (21:20)
[2023-01-21] MEDS ORDERED: ACETAMINOPHEN TAB 500 MG TAB PO PRN (21:20)
[2023-01-22 01:37] LABS: Appearance,Urine Clear (Clear); Bilirubin,Urine Negative (Negative); Blood,Urine Negative (Negative); Color,Urine Yellow; Glucose,Urine (UA) Negative (Negative); Hyaline Casts,Urine 3 /lpf (0-2); Ketones,Urine Negative (Negative); Leukocyte Esterase,Urine Trace (Negative); Mucus,Urine Rare /hpf; Nitrite,Urine Negative (Negative); PH, Urine 5.5 (5.0-8.0); Protein,Urine 1+ (Negative); RBC,Urine 2 /hpf (0-5); Specific Gravity,Urine 1.016 (1.001-1.035); Squamous Epithelial Cell,Urine 1 /hpf (0-4); Urobilinogen,Urine <2.0 mg/dL (<2.0); WBC,Urine 4 /hpf (0-5)
[2023-01-22] MEDS: GABAPENTIN 400 MG CAP PO SCH ×3 (06:21→20:33)
[2023-01-22] MEDS: METOPROLOL TARTRATE 25 MG TAB PO SCH ×2 (06:21→20:33)
[2023-01-22] MEDS: DOCUSATE 100 MG CAP PO SCH ×3 (06:22→17:34)
[2023-01-22 07:33] LABS: Glucose,Whole Blood 140 mg/dL (70-110)
[2023-01-22] MEDS: INSULIN ASPART (NovoLOG) 100 UNIT/ML VIAL SQ SCH ×4 (07:47→20:36)
[2023-01-22] MEDS: ISOSORBIDE MONONITRATE ER 30 MG TAB.ER.24H PO SCH (08:02)
[2023-01-22] MEDS: MULTIVITAMINS, THERA 1 EACH TAB PO SCH (08:02)
[2023-01-22] MEDS: APIXABAN 5 MG TAB PO SCH ×2 (08:02→20:33)
[2023-01-22] MEDS: FAMOTIDINE 20 MG/2 ML VIAL IV SCH ×2 (08:02→20:33)
[2023-01-22] MEDS: SENNOSIDES 8.6 MG TAB PO SCH ×2 (08:02→20:36)
[2023-01-22 09:26] LABS: Basophils # (A) 0.03 X 10*3/uL (0.00-0.10); Basophils % (A) 0.2 %; Eosinophils # (A) 0.09 X 10*3/uL (0.04-0.35); Eosinophils % (A) 0.6 %; HCT 41.1 % (39.6-50.0); HGB 12.9 d/dL (13.0-17.0); Lymphocytes # (A) 1.27 X 10*3/uL (0.90-5.00); Lymphocytes % (A) 7.8 %; MCH 29.1 pg (27.0-32.0); MCHC 31.4 d/dL (32.0-37.0); MCV 92.8 FL (80.0-97.0); Mean Platelet Volume 12.9 FL (9.5-12.2); Monocytes # (A) 0.91 X 10*3/uL (0.20-1.00); Monocytes % (A) 5.6 %; NRBC Per 100 WBC 0 X 10*3/uL (0.00-0.01); Neutrophils # (A) 13.96 X 10*3/uL (1.80-7.70); Neutrophils % (A) 85.4 %; Platelet Count 146 X 10*3/uL (140-440); RBC 4.43 X 10*6/uL (4.40-5.60); RDW 15.5 % (11.5-14.5); WBC 16.33 X 10*3/uL (4.50-10.00)
[2023-01-22 10:33] LABS: ALT 15 U/L (10-49); AST 13 U/L (14-35); Albumin 3.7 d/dL (3.8-4.9); Albumin/Globulin Ratio 0.84 Ratio (1.60-3.17); Alkaline Phosphatase 92 U/L (41-126); BUN/Creat Ratio 21.87 Ratio (12.00-20.00); Bilirubin, Conjugated 0.31 mg/dL (0.20-0.40); Bilirubin,Unconjugated 0.29 mg/dL (0.20-1.00); Blood Urea Nitrogen 32.8 mg/dL (9.0-27.0); Calcium 9.2 mg/dL (8.7-10.3); Carbon Dioxide 26.6 mmol/L (21.6-31.8); Chloride 104 mmol/L (96-109); Globulin 4.4 d/dL (1.6-3.3); Glucose 130 mg/dL (70-110); Magnesium 2.1 mg/dL (1.5-2.4); Phosphorus 3.8 mg/dL (2.4-5.1); Sodium 146 mmol/L (135-145); T4, Free (Free Thyroxine) 1.36 ng/dL (0.80-1.80); Total Bilirubin 0.6 mg/dL (0.3-1.2); Total Protein 8.1 d/dL (6.2-8.2)
[2023-01-22] MEDS ORDERED: Potassium Replacement Protocol 1 EACH MISC MISCELLANE PRN (11:19)
[2023-01-22] MEDS: IOPAMIDOL CONTRAST (ORAL USE) VIAL PO PRN ×2 (12:09→13:04)
[2023-01-22] MEDS: BACLOFEN 10 MG TAB PO SCH ×2 (12:10→20:33)
[2023-01-22] MEDS: POTASSIUM CHLORIDE ER 20 MEQ TAB.ER PO SCH ×2 (12:10→13:05)
[2023-01-22] MEDS: SODIUM CHLORIDE 0.9% 1,000 ML IV SCH (12:12)
[2023-01-22 12:18] LABS: Glucose,Whole Blood 190 mg/dL (70-110)
--- NOTE | 2023-01-22 14:07 | CT ---
EXAMINATION TYPE: CT abdomen pelvis wo con CT DLP: 1523.7 mGycm, Automated exposure control for dose reduction was used. DATE OF EXAM: 01/22/2023 1:43 PM COMPARISON: 08/04/2022 CLINICAL INDICATION:Male, 77 years old with history of leukocytosis/abd distension; Leukocytosis and abdominal distention. TECHNIQUE: Axial CT of the abdomen and pelvis. Sagittal and coronal reformats were created on a [employer] workstation. Contrast used: mL of , (none if empty) Oral contrast used: with Oral Contrast (none if empty) FINDINGS: LOWER CHEST: Unremarkable ABDOMEN LIVER: Unremarkable GALLBLADDER AND BILE DUCTS: Gallbladder is not visualized. PANCREAS: Unremarkable. SPLEEN: Unremarkable. ADRENAL GLANDS: Unremarkable. KIDNEYS AND URETERS: No evidence of hydronephrosis or renal calculus. The ureters are unremarkable. PELVIS BLADDER: The bladder is distended without wall thickening. REPRODUCTIVE: Prostate is enlarged in size measuring 5.0 cm in transverse dimension. ABDOMEN & PELVIS STOMACH AND BOWEL: Gaseous distention of the sigmoid colon measuring up to 12.4 cm. No evidence for v olvulus. Additionally there is large stool burden throughout the colon. Small hiatal hernia. PERITONEUM/RETROPERITONEUM: No evidence of pneumoperitoneum or free fluid. VASCULATURE: Mild atherosclerotic calcifications are present throughout the abdominal aorta and its b ranches. No evidence of aortic aneurysm. MUSCULOSKELETAL: No acute osseous abnormalities, multilevel degeneration changes throughout the spine . LYMPH NODES: No gross evidence for lymphadenopathy. SOFT TISSUE/ABDOMINAL WALL: Left fat-containing inguinal hernia. IMPRESSION: 1. No obvious acute infectious process visualized. 2. Gaseous distention of the sigmoid colon measuring up to 12.4 cm. No evidence for volvulus. 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 There is large stool burden throughout the colon. Findings s imilar to prior on 08/04/2022 3. Prostatomegaly correlate serum PSA. 4. Distended urinary bladder correlate for bladder outlet obstruction. 5. Small hiatal hernia.
--- NOTE | 2023-01-22 14:49 | P.HPIM ---
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 Nursing staff noted the patient has been acting weak, patient was unable to provide any history. Patient was recently admitted to the hospital for TIA at that time patient was found to have slurred speech as his presenting symptom. Initial lab work done in the ER showed WBC 18.6, hemoglobin 14.3, platelet count 136, sodium 140, potassium 3.9, BUN 43, creatinine 1.7 CT brain done showed no acute intracranial process Chest x-ray done in the ER showed cardiomegaly and mild pulmonary vascular congestion Patient admitted to medicine service REVIEW OF SYSTEMS: Review of systems cannot be obtained as patient is lethargic PHYSICAL EXAMINATION: GENERAL: The patient is alert self and place. Well developed, well nourished. HEENT: Pupils are round and equally reacting to light. EOMI. No scleral icterus. No conjunctival pallor. Normocephalic, atraumatic. No pharyngeal erythema. No thyromegaly. CARDIOVASCULAR: S1 and S2 present. No murmurs, rubs, or gallops. PULMONARY: Chest is clear to auscultation, no wheezing or crackles. ABDOMEN: Soft, nontender, nondistended, normoactive bowel sounds. No palpable organomegaly. MUSCULOSKELETAL: No joint swelling or deformity. EXTREMITIES: No cyanosis, clubbing, or pedal edema. NEUROLOGICAL: Gross neurological examination did not reveal any focal deficits. SKIN: No rashes. 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 Continue same treatment. Continue with symptomatic treatment. Resume home medication. Monitor labs and vitals. DVT and GI prophylaxis. Further recommendations as per clinical course of the patient Dictation was produced using [employer] software. please excuse any grammatical, word or spelling errors. Past Medical History Past Medical History: Atrial Fibrillation, Chest Pain / Angina, Heart Failure, CVA/TIA, Diabetes Mellitus, GERD/Reflux, Hyperlipidemia, Hypertension, Memory I mpairment, Pneumonia, Prostate Disorder, Renal Disease Additional Past Medical History / Comment(s): STROKE IN 2008 & 01/06/23 History of Any Multi-Drug Resistant Organisms: None Reported Past Surgical History: Appendectomy, Orthopedic Surgery Past Anesthesia/Blood Transfusion Reactions: No Reported Reaction Past Psychological History: No Psychological Hx Reported, Depression Smoking Status: Never smoker Past Alcohol Use History: None Reported Past Drug Use History: None Reported Medications and Allergies Home Medications Medication Instructions Recorded Confirmed Type Cholecalciferol [Vitamin D3 (25 25 mcg PO DAILY@0600 01/17/22 01/21/23 History Mcg = 1000 Iu)] Omeprazole 20 mg PO HS@199901/17/22 01/21/23 History PARoxetine [Paxil] 10 mg PO HS@199901/17/22 01/21/23 History Primidone [Mysoline] 50 mg PO HS@199901/17/22 01/21/23 History Sennosides [Senokot] 8.6 mg PO HS@199901/17/22 01/21/23 History Sennosides [Senokot] 17.2 mg PO DAILY 01/17/22 01/21/23 History Tamsulosin [Flomax] 0.4 mg PO HS@199901/17/22 01/21/23 History polyethylene glycoL 3350 [Miralax] 17 gm PO DAILY 01/17/22 01/21/23 History Atorvastatin [Lipitor] 40 mg PO HS@199903/01/22 01/21/23 History Nitroglycerin Sl Tabs [Nitrostat] 0.4 mg SL Q5M PRN 03/01/22 01/21/23 History Apixaban [Eliquis] 5 mg PO BID 08/04/22 01/21/23 History Multivitamins, Thera [Multivitamin 1 tab PO DAILY 08/04/22 01/21/23 History (formulary)] Isosorbide Mononitrate ER [Imdur] 30 mg PO DAILY #30 tab 08/12/22 01/21/23 Rx Acetaminophen Tab [Tylenol] 1,000 mg PO BID PRN 09/07/22 01/21/23 History Docusate [Colace] 100 mg PO BID@0700,1600 09/07/22 01/21/23 History Ranolazine [Ranexa] 500 mg PO BID@0700,1900 09/07/22 01/21/23 History Baclofen 10 mg PO TID@0700,1300,1900 01/06/23 01/21/23 History Bumetanide [BUMEX] 2 mg PO BID 01/06/23 01/21/23 History Menthol [Biofreeze] 1 applic TOPICAL Q8H PRN 01/06/23 01/21/23 History Menthol [Biofreeze] 1 applic TOPICAL QID@,,,01/06/23 01/21/23 History Metoprolol Tartrate [Lopressor] 25 mg PO BID@0700,1900 01/06/23 01/21/23 History Gabapentin [Neurontin] 400 mg PO TID@0700,1300,1900 #10 01/08/23 01/21/23 Rx cap Amino Acids/Protein Hydrolys 30 ml PO DAILY 01/21/23 01/21/23 History [Pro-Stat Awc Liquid] HYDROcodone/APAP 5-325MG [[place] 1 tab PO QID@,,,01/21/23 01/21/23 History 5-325] Nystatin 100,000 Unit/gm Powd 1 applic TOPICAL BID 01/21/23 01/21/23 History [Mycostatin Powder] glipiZIDE [Glucotrol] 5 mg PO HS 01/21/23 01/21/23 History glipiZIDE [Glucotrol] 10 mg PO DAILY 01/21/23 01/21/23 History Allergies Allergy/AdvReac Type Severity Reaction Status Date / Time No Known Allergies Allergy Verified 01/21/23 18:32 Physical Exam Vitals: Vital Signs Temp Pulse Pulse Resp BP BP Pulse Ox 01/22/23 07:35 97.7 F 82 15 135/61 98 01/22/23 01:19 97.9 F 95 16 110/65 96 01/21/23 22:47 98.8 F 75 16 132/89 98 01/21/23 21:38 67 20 145/75 96 01/21/23 20:33 87 18 150/89 99 01/21/23 18:26 94 19 139/79 100 01/21/23 16:05 99.1 F 90 18 133/64 98 Intake and Output 01/21/23 01/22/23 01/22/23 22:59 06:59 14:59 Output Total 500 Balance -500 Output: Urine 500 Other: Voiding Method External Catheter External Catheter # Bowel Movements 1 1 Weight 80 kg 114.5 kg Results CBC & Chem 7: 01/22/23 06:35 01/22/23 06:35 Labs: Abnormal Lab Results - Last 24 Hours (Table) 01/21/23 01/21/23 01/21/23 Range/Units 16:55 16:55 16:55 WBC 18.6 H (3.8-10.6) k/uL Hgb (13.0-17.0) d/dL MCHC (32.0-37.0) d/dL RDW (11.5-14.5) % Plt Count 136 L (150-450) k/uL MPV (9.5-12.2) FL Neutrophils # 16.4 H (1.3-7.7) k/uL INR 1.2 H (<1.2) BUN 43 H (9-20) mg/dL Creatinine 1.70 H (0.66-1.25) mg/dL Glucose 163 H (74-99) mg/dL POC Glucose (mg/dL) (70-110) mg/dL Hemoglobin A1c (<=6.0) % Plasma Lactic Acid Bertram (0.7-2.0) mmol/L Phosphorus 5.0 H (2.5-4.5) mg/dL Total Protein 9.1 H (6.3-8.2) g/dL TSH 0.375 L (0.465-4.680) mIU/L Urine Protein (Negative) Ur Leukocyte Esterase (Negative) Hyaline Casts (0-2) /lpf Urine Mucus (None) /hpf 01/21/23 01/21/23 01/22/23 Range/Units 17:36 21:03 01:26 WBC (3.8-10.6) k/uL Hgb (13.0-17.0) d/dL MCHC (32.0-37.0) d/dL RDW (11.5-14.5) % Plt Count (150-450) k/uL MPV (9.5-12.2) FL Neutrophils # (1.3-7.7) k/uL INR (<1.2) BUN (9-20) mg/dL Creatinine (0.66-1.25) mg/dL Glucose (74-99) mg/dL POC Glucose (mg/dL) 134 H (70-110) mg/dL Hemoglobin A1c (<=6.0) % Plasma Lactic Acid Bertram 2.2 H* (0.7-2.0) mmol/L Phosphorus (2.5-4.5) mg/dL Total Protein (6.3-8.2) g/dL TSH (0.465-4.680) mIU/L Urine Protein 1+ H (Negative) Ur Leukocyte Esterase Trace H (Negative) Hyaline Casts 3 H (0-2) /lpf Urine Mucus Rare H (None) /hpf 01/22/23 01/22/23 01/22/23 Range/Units 06:35 06:35 07:32 WBC 16.33 H (3.8-10.6) k/uL Hgb 12.9 L (13.0-17.0) d/dL MCHC 31.4 L (32.0-37.0) d/dL RDW 15.5 H (11.5-14.5) % Plt Count (150-450) k/uL MPV 12.9 H (9.5-12.2) FL Neutrophils # 13.96 H (1.3-7.7) k/uL INR (<1.2) BUN (9-20) mg/dL Creatinine (0.66-1.25) mg/dL Glucose (74-99) mg/dL POC Glucose (mg/dL) 140 H (70-110) mg/dL Hemoglobin A1c 8.1 H (<=6.0) % Plasma Lactic Acid Bertram (0.7-2.0) mmol/L Phosphorus (2.5-4.5) mg/dL Total Protein (6.3-8.2) g/dL TSH (0.465-4.680) mIU/L Urine Protein (Negative) Ur Leukocyte Esterase (Negative) Hyaline Casts (0-2) /lpf Urine Mucus (None) /hpf Thrombosis Risk Factor Assmnt - Choose All That Apply Any of the Below Risk Factors Present?: No Each Risk Factor Represents 2 Points: Patient confined to bed Each Risk Factor Represents 3 Points: Age 75 years or older Other congenital or acquired thrombophilia - If yes, enter type in comment: No Thrombosis Risk Factor Assessment Total Risk Factor Score: 5 Thrombosis Risk Factor Assessment Level: High Risk
[2023-01-22] MEDS: PIPERACILLIN-TAZOBACTAM 3.375 GM in SODIUM CHLORIDE 0.9% 100 ML IVPB SCH (17:22)
[2023-01-22 17:23] LABS: Glucose,Whole Blood 93 mg/dL (70-110)
[2023-01-22 20:30] LABS: Glucose,Whole Blood 87 mg/dL (70-110)
[2023-01-22] MEDS: PRIMIDONE 50 MG TAB PO SCH (20:33)
[2023-01-22] MEDS: ATORVASTATIN 40 MG TAB PO SCH (20:33)
[2023-01-22] MEDS: PARoxetine 10 MG TAB PO SCH (20:33)
[2023-01-22] MEDS: TAMSULOSIN 0.4 MG CAP.ER.24H PO SCH (20:33)
[2023-01-22] MEDS: RANOLAZINE 500 MG TAB.ER.12H PO SCH (20:37)
--- NOTE | 2023-01-22 22:08 | P.CONS ---
History of Present Illness - Reason for Consult Consult date: 01/22/23 Leukocytosis, low-grade fever Requesting physician: Akil Espinosa - Chief Complaint Mental status changes x one day - History of Present Illness Patient is a 77-year-old male with a past medical history significant for hyperlipidemia CVA TIA angina in alf resident. Has been sent to the ER for evaluation of altered mental status with unknown baseline, patient on presentation to the hospital was running a low-grade fever of 99.1 F patient was not hypotensive mildly hypoxic requiring 2 L nasal cannula oxygen patient did have a white count of 18.6 with a left shift, BUN/creatinine mildly elevated elevated lactic acid level normal urine was negative for COVID testing was negative chest x-ray was reported cardiomegaly and mild pulmonary vascular congestion, infectious was consulted because of his low-grade fever elevated white count patient at the time of evaluation was sleepy however the nursing staff was able to wake him up but the patient woke up he know that he was in the hospital denied having any headache or URI symptoms no chest pain or shortness with a minimal cough no nausea vomiting no abdominal pain no diarrhea Review of Systems Positive point and negatives has been mentioned in the HPI, complete review of systems was performed and all other systems are negative Past Medical History Past Medical History: Atrial Fibrillation, Chest Pain / Angina, Heart Failure, CVA/TIA, Diabetes Mellitus, GERD/Reflux, Hyperlipidemia, Hypertension, Memory Impairment, Pneumonia, Prostate Disorder, Renal Disease Additional Past Medical History / Comment(s): STROKE IN 2008 & 01/06/23 History of Any Multi-Drug Resistant Organisms: None Reported Past Surgical History: Appendectomy, Orthopedic Surgery Past Anesthesia/Blood Transfusion Reactions: No Reported Reaction Past Psychological History: No Psychological Hx Reported, Depression Smoking Status: Never smoker Past Alcohol Use History: None Reported Past Drug Use History: None Reported Medications and Allergies Home Medications Medication Instructions Recorded Confirmed Type Cholecalciferol [Vitamin D3 (25 25 mcg PO DAILY@0600 01/17/22 01/21/23 History Mcg = 1000 Iu)] Omeprazole 20 mg PO HS@199901/17/22 01/21/23 History PARoxetine [Paxil] 10 mg PO HS@199901/17/22 01/21/23 History Primidone [Mysoline] 50 mg PO HS@199901/17/22 01/21/23 History Sennosides [Senokot] 8.6 mg PO HS@199901/17/22 01/21/23 History Sennosides [Senokot] 17.2 mg PO DAILY 01/17/22 01/21/23 History Tamsulosin [Flomax] 0.4 mg PO HS@199901/17/22 01/21/23 History polyethylene glycoL 3350 [Miralax] 17 gm PO DAILY 01/17/22 01/21/23 History Atorvastatin [Lipitor] 40 mg PO HS@199903/01/22 01/21/23 History Nitroglycerin Sl Tabs [Nitrostat] 0.4 mg SL Q5M PRN 03/01/22 01/21/23 History Apixaban [Eliquis] 5 mg PO BID 08/04/22 01/21/23 History Multivitamins, Thera [Multivitamin 1 tab PO DAILY 08/04/22 01/21/23 History (formulary)] Isosorbide Mononitrate ER [Imdur] 30 mg PO DAILY #30 tab 08/12/22 01/21/23 Rx Acetaminophen Tab [Tylenol] 1,000 mg PO BID PRN 09/07/22 01/21/23 History Docusate [Colace] 100 mg PO BID@0700,1600 09/07/22 01/21/23 History Ranolazine [Ranexa] 500 mg PO BID@0700,1900 09/07/22 01/21/23 History Bumetanide [BUMEX] 2 mg PO BID 01/06/23 01/21/23 History Menthol [Biofreeze] 1 applic TOPICAL Q8H PRN 01/06/23 01/21/23 History Menthol [Biofreeze] 1 applic TOPICAL QID@05,11,17,01/06/23 01/21/23 History Metoprolol Tartrate [Lopressor] 25 mg PO BID@0700,1900 01/06/23 01/21/23 History Amino Acids/Protein Hydrolys 30 ml PO DAILY 01/21/23 01/21/23 History [Pro-Stat Awc Liquid] Nystatin 100,000 Unit/gm Powd 1 applic TOPICAL BID 01/21/23 01/21/23 History [Mycostatin Powder] glipiZIDE [Glucotrol] 5 mg PO HS 01/21/23 01/21/23 History glipiZIDE [Glucotrol] 10 mg PO DAILY 01/21/23 01/21/23 History Amoxic-Pot Clav 875-125Mg 1 each PO Q12HR 5 Days #10 tab 01/25/23 Rx [Augmentin 875-125] Baclofen 10 mg PO TID@0700,1300,1900 3 Days 01/25/23 Rx #9 tab Gabapentin [Neurontin] 400 mg PO TID@0700,1300,1900 3 01/25/23 Rx Days #9 cap HYDROcodone/APAP 5-325MG [[place] 1 tab PO QID@05,11,17,23 3 Days 01/25/23 Rx 5-325] #12 tab Allergies Allergy/AdvReac Type Severity Reaction Status Date / Time No Known Allergies Allergy Verified 01/21/23 18:32 Physical Exam Vitals: Vital Signs Temp Pulse Pulse Resp BP BP Pulse Ox 01/22/23 07:35 97.7 F 82 15 135/61 98 01/22/23 01:19 97.9 F 95 16 110/65 96 01/21/23 22:47 98.8 F 75 16 132/89 98 01/21/23 21:38 67 20 145/75 96 01/21/23 20:33 87 18 150/89 99 01/21/23 18:26 94 19 139/79 100 01/21/23 16:05 99.1 F 90 18 133/64 98 Intake and Output 01/21/23 01/22/23 01/22/23 22:59 06:59 14:59 Output Total 500 Balance -500 Output: Urine 500 Other: Voiding Method External Catheter External Catheter # Bowel Movements 1 1 Weight 80 kg 114.5 kg GENERAL DESCRIPTION: Elderly male lying in bed, no distress. No tachypnea or accessory muscle of respiration use. HEENT: Shows Pallor , no scleral icterus. Oral mucous membrane is dry. No pharyngeal erythema or thrush NECK: Trachea central, no thyromegaly. LUNGS: Unlabored breathing. Decreased breath sounds at the base. HEART: S1, S2, regular rate and rhythm. No loud murmur ABDOMEN: Soft, mild distention and tenderness EXTREMITIES: No edema of feet. SKIN: No rash, no masses palpable. NEUROLOGICAL: The patient is sleepy lethargic but arousable mood and affect is normal no neck rigidity Results CBC & Chem 7: 01/25/23 05:53 01/25/23 05:53 Labs: Abnormal Lab Results - Last 24 Hours (Table) 01/21/23 01/21/23 01/21/23 Range/Units 16:55 16:55 16:55 WBC 18.6 H (3.8-10.6) k/uL Hgb (13.0-17.0) d/dL MCHC (32.0-37.0) d/dL RDW (11.5-14.5) % Plt Count 136 L (150-450) k/uL MPV (9.5-12.2) FL Neutrophils # 16.4 H (1.3-7.7) k/uL INR 1.2 H (<1.2) Sodium (135-145) mmol/L Potassium (3.5-5.5) mmol/L Anion Gap (4.00-12.00) mmol/L BUN 43 H (9-20) mg/dL Creatinine 1.70 H (0.66-1.25) mg/dL Est GFR (CKD-EPI) (>=60) BUN/Creatinine Ratio (12.00-20.00) Ratio Glucose 163 H (74-99) mg/dL POC Glucose (mg/dL) (70-110) mg/dL Hemoglobin A1c (<=6.0) % Plasma Lactic Acid Bertram (0.7-2.0) mmol/L Phosphorus 5.0 H (2.5-4.5) mg/dL AST (14-35) U/L Total Protein 9.1 H (6.3-8.2) g/dL Albumin (3.8-4.9) d/dL Globulin (1.6-3.3) d/dL Albumin/Globulin Ratio (1.60-3.17) Ratio Procalcitonin (0.02-0.09) ng/mL TSH 0.375 L (0.465-4.680) mIU/L Urine Protein (Negative) Ur Leukocyte Esterase (Negative) Hyaline Casts (0-2) /lpf Urine Mucus (None) /hpf 01/21/23 01/21/23 01/22/23 Range/Units 17:36 21:03 01:26 WBC (3.8-10.6) k/uL Hgb (13.0-17.0) d/dL MCHC (32.0-37.0) d/dL RDW (11.5-14.5) % Plt Count (150-450) k/uL MPV (9.5-12.2) FL Neutrophils # (1.3-7.7) k/uL INR (<1.2) Sodium (135-145) mmol/L Potassium (3.5-5.5) mmol/L Anion Gap (4.00-12.00) mmol/L BUN (9-20) mg/dL Creatinine (0.66-1.25) mg/dL Est GFR (CKD-EPI) (>=60) BUN/Creatinine Ratio (12.00-20.00) Ratio Glucose (74-99) mg/dL POC Glucose (mg/dL) 134 H (70-110) mg/dL Hemoglobin A1c (<=6.0) % Plasma Lactic Acid Bertram 2.2 H* (0.7-2.0) mmol/L Phosphorus (2.5-4.5) mg/dL AST (14-35) U/L Total Protein (6.3-8.2) g/dL Albumin (3.8-4.9) d/dL Globulin (1.6-3.3) d/dL Albumin/Globulin Ratio (1.60-3.17) Ratio Procalcitonin (0.02-0.09) ng/mL TSH (0.465-4.680) mIU/L Urine Protein 1+ H (Negative) Ur Leukocyte Esterase Trace H (Negative) Hyaline Casts 3 H (0-2) /lpf Urine Mucus Rare H (None) /hpf 01/22/23 01/22/23 01/22/23 Range/Units 06:35 06:35 06:35 WBC 16.33 H (3.8-10.6) k/uL Hgb 12.9 L (13.0-17.0) d/dL MCHC 31.4 L (32.0-37.0) d/dL RDW 15.5 H (11.5-14.5) % Plt Count (150-450) k/uL MPV 12.9 H (9.5-12.2) FL Neutrophils # 13.96 H (1.3-7.7) k/uL INR (<1.2) Sodium (135-145) mmol/L Potassium (3.5-5.5) mmol/L Anion Gap (4.00-12.00) mmol/L BUN (9-20) mg/dL Creatinine (0.66-1.25) mg/dL Est GFR (CKD-EPI) (>=60) BUN/Creatinine Ratio (12.00-20.00) Ratio Glucose (74-99) mg/dL POC Glucose (mg/dL) (70-110) mg/dL Hemoglobin A1c 8.1 H (<=6.0) % Plasma Lactic Acid Bertram (0.7-2.0) mmol/L Phosphorus (2.5-4.5) mg/dL AST (14-35) U/L Total Protein (6.3-8.2) g/dL Albumin (3.8-4.9) d/dL Globulin (1.6-3.3) d/dL Albumin/Globulin Ratio (1.60-3.17) Ratio Procalcitonin 0.19 H (0.02-0.09) ng/mL TSH (0.465-4.680) mIU/L Urine Protein (Negative) Ur Leukocyte Esterase (Negative) Hyaline Casts (0-2) /lpf Urine Mucus (None) /hpf 01/22/23 01/22/23 Range/Units 06:35 07:32 WBC (3.8-10.6) k/uL Hgb (13.0-17.0) d/dL MCHC (32.0-37.0) d/dL RDW (11.5-14.5) % Plt Count (150-450) k/uL MPV (9.5-12.2) FL Neutrophils # (1.3-7.7) k/uL INR (<1.2) Sodium 146 H (135-145) mmol/L Potassium 3.0 L (3.5-5.5) mmol/L Anion Gap 15.40 H (4.00-12.00) mmol/L BUN 32.8 H (9-20) mg/dL Creatinine (0.66-1.25) mg/dL Est GFR (CKD-EPI) 47 L (>=60) BUN/Creatinine Ratio 21.87 H (12.00-20.00) Ratio Glucose 130 H (74-99) mg/dL POC Glucose (mg/dL) 140 H (70-110) mg/dL Hemoglobin A1c (<=6.0) % Plasma Lactic Acid Bertram (0.7-2.0) mmol/L Phosphorus (2.5-4.5) mg/dL AST 13 L (14-35) U/L Total Protein (6.3-8.2) g/dL Albumin 3.7 L (3.8-4.9) d/dL Globulin 4.4 H (1.6-3.3) d/dL Albumin/Globulin Ratio 0.84 L (1.60-3.17) Ratio Procalcitonin (0.02-0.09) ng/mL TSH (0.465-4.680) mIU/L Urine Protein (Negative) Ur Leukocyte Esterase (Negative) Hyaline Casts (0-2) /lpf Urine Mucus (None) /hpf Assessment and Plan (1) Leukocytosis Status: Acute Code(s): D72.829 - ELEVATED WHITE BLOOD CELL COUNT, UNSPECIFIED SNOMED Code(s): 914312289 Plan: 1patient was in the hospital mental status changes did have a low-grade fever elevated white count possibly metabolic as the patient did have elevated BUN and creatinine however underlying infectious etiology to be ruled out initial work- up negative with a negative UA and a chest x-ray is mostly pulmonary vascular congestion patient noticed to have some abdominal distention and a possible abdominal source need to be rule out as currently denies having any headache no evidence of any cellulitis or joint swelling. 2we will obtain a CT abdominal pelvis with oral contrast only. 3we will add empirically Unasyn 3 g every 6 hours while waiting for the work-up to be completed. 4check inflammatory markers We will follow on clinical condition and cultures to further adjust medication if needed Thank you for this consultation we will follow the patient along with you Dictation was produced using [employer] dictation software. please excuse any grammatical, word or spelling errors. Time with Patient: Greater than 30
[2023-01-23] MEDS: PIPERACILLIN-TAZOBACTAM 3.375 GM in SODIUM CHLORIDE 0.9% 100 ML IVPB SCH ×3 (00:21→17:02)
[2023-01-23] MEDS: SODIUM CHLORIDE 0.9% 1,000 ML IV SCH ×2 (00:22→12:18)
[2023-01-23] MEDS: RANOLAZINE 500 MG TAB.ER.12H PO SCH ×2 (06:38→18:28)
[2023-01-23] MEDS: BACLOFEN 10 MG TAB PO SCH ×3 (06:38→18:27)
[2023-01-23] MEDS: GABAPENTIN 400 MG CAP PO SCH ×3 (06:38→18:27)
[2023-01-23] MEDS: METOPROLOL TARTRATE 25 MG TAB PO SCH ×2 (06:38→18:27)
[2023-01-23] MEDS: DOCUSATE 100 MG CAP PO SCH ×2 (06:39→17:02)
[2023-01-23 07:33] LABS: Glucose,Whole Blood 87 mg/dL (70-110)
[2023-01-23] MEDS: INSULIN ASPART (NovoLOG) 100 UNIT/ML VIAL SQ SCH ×4 (08:20→20:35)
[2023-01-23] MEDS: SENNOSIDES 8.6 MG TAB PO SCH ×2 (08:58→20:36)
[2023-01-23] MEDS: ISOSORBIDE MONONITRATE ER 30 MG TAB.ER.24H PO SCH (08:58)
[2023-01-23] MEDS: APIXABAN 5 MG TAB PO SCH ×2 (08:58→20:35)
[2023-01-23] MEDS: FAMOTIDINE 20 MG/2 ML VIAL IV SCH ×2 (08:58→20:37)
[2023-01-23] MEDS: MULTIVITAMINS, THERA 1 EACH TAB PO SCH (08:58)
[2023-01-23 11:15] LABS: Potassium 3.4 mmol/L (3.5-5.1)
[2023-01-23 11:34] LABS: Magnesium 2.2 mg/dL (1.6-2.3)
[2023-01-23] MEDS: POTASSIUM CHLORIDE ER 20 MEQ TAB.ER PO SCH ×2 (12:17→12:18)
[2023-01-23] MEDS: polyethylene glycoL 3350 17 GM POWD.PACK PO SCH ×2 (12:18→20:35)
[2023-01-23 12:38] LABS: Glucose,Whole Blood 129 mg/dL (70-110)
--- NOTE | 2023-01-23 12:58 | P.PN ---
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 Nursing staff noted the patient has been acting weak, patient was unable to provide any history. Patient was recently admitted to the hospital for TIA at that time patient was found to have slurred speech as his presenting symptom. Initial lab work done in the ER showed WBC 18.6, hemoglobin 14.3, platelet count 136, sodium 140, potassium 3.9, BUN 43, creatinine 1.7 CT brain done showed no acute intracranial process Chest x-ray done in the ER showed cardiomegaly and mild pulmonary vascular c ongestion Patient admitted to medicine service 01/23. Patient seen and examined. CT, done showed gaseous distention of the sigmoid colon, no evidence of volvulus. Correlate for ileus vs [place] syndrome. REVIEW OF SYSTEMS: CONSTITUTIONAL: No fever, no malaise,. CARDIOVASCULAR: No chest pain, no palpitations, no syncope. PULMONARY: No shortness of breath, no cough, GASTROINTESTINAL: No diarrhea, no nausea, no vomiting, no abdominal pain. NEUROLOGICAL: No headaches, no weakness, PHYSICAL EXAMINATION: GENERAL: The patient is alert and oriented x3, not in any acute distress. Well developed, well nourished. HEENT: Pupils are round and equally reacting to light. EOMI. No scleral icterus. No conjunctival pallor. Normocephalic, atraumatic. No pharyngeal erythema. No thyromegaly. CARDIOVASCULAR: S1 and S2 present. No murmurs, rubs, or gallops. PULMONARY: Chest is clear to auscultation, no wheezing or crackles. ABDOMEN: Soft, nontender, nondistended, normoactive bowel sounds. No palpable organomegaly. MUSCULOSKELETAL: No joint swelling or deformity. EXTREMITIES: No cyanosis, clubbing, or pedal edema. NEUROLOGICAL: Gross neurological examination did not reveal any focal deficits. SKIN: No rashes. 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 Continue same treatment. Continue with symptomatic treatment. Resume home medication. Monitor labs and vitals. DVT and GI prophylaxis. Further recommendations as per clinical course of the patient Dictation was produced using [employer] dictation software. please excuse any grammatical, word or spelling errors. Objective - Vital Signs Vital signs: Vital Signs Temp 97.7 F 01/23/23 07:27 Pulse 73 01/23/23 07:27 Resp 18 01/23/23 07:27 BP 138/70 01/23/23 07:27 Pulse Ox 95 01/23/23 08:10 FiO2 Intake & Output 01/22/23 01/23/23 01/23/23 18:59 06:59 18:59 Intake Total 1200 Output Total 575 500 Balance -575 700 Weight 124.5 kg Intake: Oral 1200 Output: Urine 575 500 Other: Voiding Method External Catheter External Catheter External Catheter - Labs CBC & Chem 7: 01/22/23 06:35 01/23/23 10:34 Labs: Abnormal Lab Results - Last 24 Hours (Table) 01/22/23 01/22/23 01/22/23 Range/Units 06:35 06:35 12:17 Sodium 146 H (135-145) mmol/L Potassium 3.0 L (3.5-5.5) mmol/L Anion Gap 15.40 H (4.00-12.00) mmol/L BUN 32.8 H (9.0-27.0) mg/dL Est GFR (CKD-EPI) 47 L (>=60) BUN/Creatinine Ratio 21.87 H (12.00-20.00) Ratio Glucose 130 H (70-110) mg/dL POC Glucose (mg/dL) 190 H (70-110) mg/dL AST 13 L (14-35) U/L Albumin 3.7 L (3.8-4.9) d/dL Globulin 4.4 H (1.6-3.3) d/dL Albumin/Globulin Ratio 0.84 L (1.60-3.17) Ratio Procalcitonin 0.19 H (0.02-0.09) ng/mL
--- NOTE | 2023-01-23 14:33 | P.GSCN ---
History of Present Illness Consult date: 01/23/23 Reason for Consult: Constipation History of present illness: This 77-year-old male who was admitted to the hospital multiple medical problems. Patient to CAT scan performed which showed an large sigmoid colon with gaseous distention. The patient states she's had issues with constipation. Patient states he did have a bowel movement today. Past Medical History Past Medical History: Atrial Fibrillation, Chest Pain / Angina, Heart Failure, CVA/TIA, Diabetes Mellitus, GERD/Reflux, Hyperlipidemia, Hypertension, Memory Impairment, Pneumonia, Prostate Disorder, Renal Disease Additional Past Medical History / Comment(s): STROKE IN 2008 & 01/06/23 History of Any Multi-Drug Resistant Organisms: None Reported Past Surgical History: Appendectomy, Orthopedic Surgery Past Anesthesia/Blood Transfusion Reactions: No Reported Reaction Past Psychological History: No Psychological Hx Reported, Depression Smoking Status: Never smoker Past Alcohol Use History: None Reported Past Drug Use History: None Reported Medications and Allergies Home Medications Medication Instructions Recorded Confirmed Type Cholecalciferol [Vitamin D3 (25 25 mcg PO DAILY@0600 01/17/22 01/21/23 History Mcg = 1000 Iu)] Omeprazole 20 mg PO HS@199901/17/22 01/21/23 History PARoxetine [Paxil] 10 mg PO HS@199901/17/22 01/21/23 History Primidone [Mysoline] 50 mg PO HS@199901/17/22 01/21/23 History Sennosides [Senokot] 8.6 mg PO HS@199901/17/22 01/21/23 History Sennosides [Senokot] 17.2 mg PO DAILY 01/17/22 01/21/23 History Tamsulosin [Flomax] 0.4 mg PO HS@199901/17/22 01/21/23 History polyethylene glycoL 3350 [Miralax] 17 gm PO DAILY 01/17/22 01/21/23 History Atorvastatin [Lipitor] 40 mg PO HS@199903/01/22 01/21/23 History Nitroglycerin Sl Tabs [Nitrostat] 0.4 mg SL Q5M PRN 03/01/22 01/21/23 History Apixaban [Eliquis] 5 mg PO BID 08/04/22 01/21/23 History Multivitamins, Thera [Multivitamin 1 tab PO DAILY 08/04/22 01/21/23 History (formulary)] Isosorbide Mononitrate ER [Imdur] 30 mg PO DAILY #30 tab 08/12/22 01/21/23 Rx Acetaminophen Tab [Tylenol] 1,000 mg PO BID PRN 09/07/22 01/21/23 History Docusate [Colace] 100 mg PO BID@0700,1600 09/07/22 01/21/23 History Ranolazine [Ranexa] 500 mg PO BID@0700,1900 09/07/22 01/21/23 History Baclofen 10 mg PO TID@0700,1300,1900 01/06/23 01/21/23 History Bumetanide [BUMEX] 2 mg PO BID 01/06/23 01/21/23 History Menthol [Biofreeze] 1 applic TOPICAL Q8H PRN 01/06/23 01/21/23 History Menthol [Biofreeze] 1 applic TOPICAL QID@05,,,01/06/23 01/21/23 History Metoprolol Tartrate [Lopressor] 25 mg PO BID@0700,1900 01/06/23 01/21/23 History Gabapentin [Neurontin] 400 mg PO TID@0700,1300,1900 #10 01/08/23 01/21/23 Rx cap Amino Acids/Protein Hydrolys 30 ml PO DAILY 01/21/23 01/21/23 History [Pro-Stat Awc Liquid] HYDROcodone/APAP 5-325MG [[place] 1 tab PO QID@05,,,01/21/23 01/21/23 History 5-325] Nystatin 100,000 Unit/gm Powd 1 applic TOPICAL BID 01/21/23 01/21/23 History [Mycostatin Powder] glipiZIDE [Glucotrol] 5 mg PO HS 01/21/23 01/21/23 History glipiZIDE [Glucotrol] 10 mg PO DAILY 01/21/23 01/21/23 History Allergies Allergy/AdvReac Type Severity Reaction Status Date / Time No Known Allergies Allergy Verified 01/21/23 18:32 Surgical - Exam Vital Signs Temp Pulse Resp BP Pulse Ox 99.1 F 90 18 133/64 98 01/21/23 16:05 01/21/23 16:05 01/21/23 16:05 01/21/23 16:05 01/21/23 16:05 - General well developed, well nourished, no distress - Eyes PERRL - ENT normal pinna, normal nares - Neck no masses - Respiratory normal expansion - Cardiovascular Rhythm: regular - Abdomen Abdomen: soft, non tender Results - Labs 01/22/23 06:35 01/23/23 10:34 Abnormal Lab Results - Last 24 Hours (Table) 01/23/23 01/23/23 Range/Units 10:34 12:36 Potassium 3.4 L (3.5-5.1) mmol/L POC Glucose (mg/dL) 129 H (70-110) mg/dL Diabetes panel 01/22/23 01/23/23 Range/Units 18:07 10:34 Potassium 3.5 3.4 L (3.5-5.1) mmol/L Pituitary panel 01/22/23 01/23/23 Range/Units 18:07 10:34 Potassium 3.5 3.4 L (3.5-5.1) mmol/L Adrenal panel 01/22/23 01/23/23 Range/Units 18:07 10:34 Potassium 3.5 3.4 L (3.5-5.1) mmol/L Assessment and Plan Assessment: History of chest patient. Patient did have abdominal. He will be observed.
[2023-01-23 17:22] LABS: Glucose,Whole Blood 109 mg/dL (70-110)
[2023-01-23 20:03] LABS: Glucose,Whole Blood 167 mg/dL (70-110)
[2023-01-23] MEDS: ATORVASTATIN 40 MG TAB PO SCH (20:35)
[2023-01-23] MEDS: TAMSULOSIN 0.4 MG CAP.ER.24H PO SCH (20:36)
[2023-01-23] MEDS: PRIMIDONE 50 MG TAB PO SCH (20:36)
[2023-01-23] MEDS: PARoxetine 10 MG TAB PO SCH (20:36)
--- NOTE | 2023-01-23 23:54 | P.CNNES ---
History of Present Illness Consult date: 01/23/23 Requesting physician: Akil Espinosa Reason for Consult: Encephalopathy History of Present Illness: Patient is a 77-year-old male came to the hospital by ambulance on 01/21/2023 at 3:18 PM for generalized weakness. Patient is a poor historian, does not know the reason that he came to the hospital. He states that he went over with his friends where he felt weak. No history of seizures. As per EMS flow sheet when they arrived, found patient alert and oriented 2-3 which is not his normal. Patient's pupils are equal. Lungs were clear. Nurses stated that patient's roommate has Covid. Patient has been altered for the last 2 days and has been weaker than normal. Due to history of strokes, nurses concerned patient might be having another stroke. Patient was seen by his neurologist in the last couple of days. The neurologist call back and wants patient sent for an MRI and echo with bubble study. Patient was placed on groundwater monitoring technician showed atrial fibrillation. Patient's temperature was 101. Patient was hypertensive with initial oxygen saturation 88%. Patient started on 2 L of oxygen. Patient's blood pressure 174/100, pulse rate 92, respiration 18 and blood sugar 180. Patient's blood tests showed WBC 18.6, hemoglobin 14.3, platelets 136. PT/PTT normal, electrolytes normal, BUN 47, creatinine 1.70, lactate 2.2. Hepatic panel normal, troponin negative, TSH was low 0.375 and espinal virus PCR nega tive. Hemoglobin A1c 8.1 AST is normal. UA negative. Computed tomography scan of the head showed no acute process. Nonspecific white matter changes, likely secondary to chronic small vessel ischemic disease. I personally reviewed CT head, agree with the findings. Generalized cerebral atrophy. Chest x-ray showed cardiomegaly and mild pulmonary vascular congestion. Correlate with BNP for congestive heart failure. CT of abdomen and pelvis showed no obvious acute infectious process. Gaseous distention of the sigmoid colon measuring up to 12.4 cm. No evidence for volvulus. Correlate for ileus versus [place]"s syndrome. There is large stool burden throughout the colon. Prostatomegaly. Distended urinary bladder. Correlate for bladder outlet obstruction. Patient denies any tobacco or alcohol at this time. Patient says that he used to be a drunk, would drink a 12 pack 3 times a day from age 14 until he quit at age 38. He was a light smoker, quit at age 38. Patient was seen by Dr. Tristan Shoemaker on 01/06/2023 for possible TIA. Patient had a normal CTA of head and neck at that time. MRI of the brain revealed no acute process. Patient was started on statins besides his Eliquis. Review of Systems Constitutional: Reports weight loss, Denies chills, Denies fever Eyes: denies blurred vision, denies diplopia, denies pain Ears: bilateral: decreased hearing, deny: earache Ears, nose, mouth and throat: Reports headache, Reports sore throat Cardiovascular: Reports chest pain, Reports shortness of breath Respiratory: Denies cough, Denies excessive sputum Gastrointestinal: Reports diarrhea, Denies abdominal pain, Denies nausea, Denies vomiting Musculoskeletal: Reports low back pain, Reports neck pain, Denies myalgias Integumentary: Denies pruritus, Denies rash Neurological: Reports as per HPI Psychiatric: Denies anxiety, Denies depression Endocrine: Reports fatigue, Reports weight change Past Medical History Past Medical History: Atrial Fibrillation, Chest Pain / Angina, Heart Failure, CVA/TIA, Diabetes Mellitus, GERD/Reflux, Hyperlipidemia, Hypertension, Memory Impairment, Pneumonia, Prostate Disorder, Renal Disease Additional Past Medical History / Comment(s): STROKE IN 2008 & 01/06/23 History of Any Multi-Drug Resistant Organisms: None Reported Past Surgical History: Appendectomy, Orthopedic Surgery Past Anesthesia/Blood Transfusion Reactions: No Reported Reaction Past Psychological History: No Psychological Hx Reported, Depression Smoking Status: Never smoker Past Alcohol Use History: None Reported Past Drug Use History: None Reported Medications and Allergies Home Medications Medication Instructions Recorded Confirmed Type Cholecalciferol [Vitamin D3 (25 25 mcg PO DAILY@0600 01/17/22 01/21/23 History Mcg = 1000 Iu)] Omeprazole 20 mg PO HS@199901/17/22 01/21/23 History PARoxetine [Paxil] 10 mg PO HS@199901/17/22 01/21/23 History Primidone [Mysoline] 50 mg PO HS@199901/17/22 01/21/23 History Sennosides [Senokot] 8.6 mg PO HS@199901/17/22 01/21/23 History Sennosides [Senokot] 17.2 mg PO DAILY 01/17/22 01/21/23 History Tamsulosin [Flomax] 0.4 mg PO HS@199901/17/22 01/21/23 History polyethylene glycoL 3350 [Miralax] 17 gm PO DAILY 01/17/22 01/21/23 History Atorvastatin [Lipitor] 40 mg PO HS@199903/01/22 01/21/23 History Nitroglycerin Sl Tabs [Nitrostat] 0.4 mg SL Q5M PRN 03/01/22 01/21/23 History Apixaban [Eliquis] 5 mg PO BID 08/04/22 01/21/23 History Multivitamins, Thera [Multivitamin 1 tab PO DAILY 08/04/22 01/21/23 History (formulary)] Isosorbide Mononitrate ER [Imdur] 30 mg PO DAILY #30 tab 08/12/22 01/21/23 Rx Acetaminophen Tab [Tylenol] 1,000 mg PO BID PRN 09/07/22 01/21/23 History Docusate [Colace] 100 mg PO BID@0700,1600 09/07/22 01/21/23 History Ranolazine [Ranexa] 500 mg PO BID@0700,1900 09/07/22 01/21/23 History Baclofen 10 mg PO TID@0700,1300,1900 01/06/23 01/21/23 History Bumetanide [BUMEX] 2 mg PO BID 01/06/23 01/21/23 History Menthol [Biofreeze] 1 applic TOPICAL Q8H PRN 01/06/23 01/21/23 History Menthol [Biofreeze] 1 applic TOPICAL QID@05,,,01/06/23 01/21/23 History Metoprolol Tartrate [Lopressor] 25 mg PO BID@0700,1900 01/06/23 01/21/23 History Gabapentin [Neurontin] 400 mg PO TID@0700,1300,1900 #10 01/08/23 01/21/23 Rx cap Amino Acids/Protein Hydrolys 30 ml PO DAILY 01/21/23 01/21/23 History [Pro-Stat Awc Liquid] HYDROcodone/APAP 5-325MG [[place]amaliel 1 tab PO QID@05,,,01/21/23 01/21/23 History 5-325] Nystatin 100,000 Unit/gm Powd 1 applic TOPICAL BID 01/21/23 01/21/23 History [Mycostatin Powder] glipiZIDE [Glucotrol] 5 mg PO HS 01/21/23 01/21/23 History glipiZIDE [Glucotrol] 10 mg PO DAILY 01/21/23 01/21/23 History Allergies Allergy/AdvReac Type Severity Reaction Status Date / Time No Known Allergies Allergy Verified 01/21/23 18:32 Physical Examination - Vital Signs Vital Signs: Vital Signs Temp Pulse Resp BP Pulse Ox 01/23/23 08:10 95 01/23/23 07:27 97.7 F 73 18 138/70 100 01/23/23 02:00 97.6 F 80 16 135/82 99 01/22/23 20:00 98.2 F 66 16 138/80 97 01/22/23 13:45 97.6 F 69 16 127/67 92 L Intake and Output 01/22/23 01/23/23 01/23/23 22:59 06:59 14:59 Intake Total 1200 Output Total 575 500 Balance -575 700 Intake: Oral 1200 Output: Urine 575 500 Other: Voiding Method External Catheter External Catheter Weight 124.5 kg Patient is an elderly male, in no acute distress. Patient is alert awake oriented to time place and person. Patient knows it is January and the year is 2022 and that he is in the hospital but does not know the name. He knows it is [place] in [facility] and knows name of the current president. Speech and language functions are normal. Patient can name and repeat very well. No aphasia or dysarthria. Attention, concentration and fund of knowledge is slightly limited. Detailed cognitive function testing d eferred. On cranial nerve examination, pupils are equal, round and reacting to light, visual schmidt are full on confrontation, with no neglect on double simultaneous stimulation. Extraocular muscles are intact with no nystagmus. Patient has right facial asymmetry from previous stroke. His tongue protrudes to the midline. Palatal elevation and sensation normal, hearing is moderately decre ased and shoulder shrug absent on the right side, facial sensation normal. On muscle strength testing, patient is completely plegic in the right arm and right leg from previous stroke. On the left side the strength appears normal except hip flexion which is weak. Deep tendon reflexes are (right/left) biceps 2/0, brachioradialis 1/0, knee 1/trace, ankles 0/0, plantar is up on the right, flat on the left. Sensory to touch is equal with no neglect on double simultaneous stimulation. Cerebellar function showed no ataxia for [id number] testing on the left, cannot perform on the right. Tone is increased in the right side, bulk of muscles normal. Gait deferred.. On general examination, there is no carotid bruit or murmur, S1-S2 audible. Chest is clear on consultation. Abdomen is soft nontender. No organomegaly, bowel sounds present. Peripheral pulses are present. No edema. Results - Laboratory Findings CBC and BMP: 01/22/23 06:35 01/23/23 10:34 Abnormal Lab Findings: Abnormal Labs 01/21/23 01/21/23 01/21/23 16:55 16:55 16:55 WBC 18.6 H Hgb MCHC RDW Plt Count 136 L MPV Neutrophils # 16.4 H INR 1.2 H Sodium Potassium Anion Gap BUN 43 H Creatinine 1.70 H Est GFR (CKD-EPI) BUN/Creatinine Ratio Glucose 163 H POC Glucose (mg/dL) Hemoglobin A1c Plasma Lactic Acid Bertram Phosphorus 5.0 H AST Total Protein 9.1 H Albumin Globulin Albumin/Globulin Ratio Procalcitonin TSH 0.375 L Urine Protein Ur Leukocyte Esterase Hyaline Casts Urine Mucus 01/21/23 01/21/23 01/22/23 17:36 21:03 01:26 WBC Hgb MCHC RDW Plt Count MPV Neutrophils # INR Sodium Potassium Anion Gap BUN Creatinine Est GFR (CKD-EPI) BUN/Creatinine Ratio Glucose POC Glucose (mg/dL) 134 H Hemoglobin A1c Plasma Lactic Acid Bertram 2.2 H* Phosphorus AST Total Protein Albumin Globulin Albumin/Globulin Ratio Procalcitonin TSH Urine Protein 1+ H Ur Leukocyte Esterase Trace H Hyaline Casts 3 H Urine Mucus Rare H 01/22/23 01/22/23 01/22/23 06:35 06:35 06:35 WBC 16.33 H Hgb 12.9 L MCHC 31.4 L RDW 15.5 H Plt Count MPV 12.9 H Neutrophils # 13.96 H INR Sodium Potassium Anion Gap BUN Creatinine Est GFR (CKD-EPI) BUN/Creatinine Ratio Glucose POC Glucose (mg/dL) Hemoglobin A1c 8.1 H Plasma Lactic Acid Bertram Phosphorus AST Total Protein Albumin Globulin Albumin/Globulin Ratio Procalcitonin 0.19 H TSH Urine Protein Ur Leukocyte Esterase Hyaline Casts Urine Mucus 01/22/23 01/22/23 01/22/23 06:35 07:32 12:17 WBC Hgb MCHC RDW Plt Count MPV Neutrophils # INR Sodium 146 H Potassium 3.0 L Anion Gap 15.40 H BUN 32.8 H Creatinine Est GFR (CKD-EPI) 47 L BUN/Creatinine Ratio 21.87 H Glucose 130 H POC Glucose (mg/dL) 140 H 190 H Hemoglobin A1c Plasma Lactic Acid Bertram Phosphorus AST 13 L Total Protein Albumin 3.7 L Globulin 4.4 H Albumin/Globulin Ratio 0.84 L Procalcitonin TSH Urine Protein Ur Leukocyte Esterase Hyaline Casts Urine Mucus Assessment and Plan Assessment: * Generalized weakness, altered mental status, likely due to acute metabolic encephalopathy. Reasons multifactorial as mentioned below. * Possible ileus * Elevated temperature, leukocytosis, elevated lactate, possible underlying infection. Probable abdominal source. * Acute renal insufficiency * Atrial fibrillation, on Eliquis * Elevated lactate * Hyponatremia/hypokalemia * Chronic right hemiplegia, from previous CVA. * History of alcoholism, quit age 38. Plan: * Neurologically, no other workup indicated as most workup already completed recently on 01/06/2023. * Patient had a CTA of head and neck on 01/06/2023, which was normal. * 2-D echo on 01/06/2023 revealed normal left ventricular size and systolic function with EF 55-60%. Normal left atrial size. * Patient's hemoglobin A1c 8.1, suggestive of new onset diabetes, currently not on treatment. Recommend optimize control of new onset diabetes to target A1c < 7.0. * Lipid panel on 01/22/2023 with cholesterol 133, LDL 67, HDL 31, triglycerides 169. Continue Lipitor 40 mg daily. * Continue Eliquis for stroke prevention related to atrial fibrillation. * ID on board for infection, patient currently on Zosyn. Surgery also on board. * B12, folate. * Neurology will follow sporadically. Thank you for the consult.
[2023-01-24] MEDS: PIPERACILLIN-TAZOBACTAM 3.375 GM in SODIUM CHLORIDE 0.9% 100 ML IVPB SCH ×4 (00:54→23:52)
[2023-01-24] MEDS: METOPROLOL TARTRATE 25 MG TAB PO SCH ×2 (06:13→19:55)
[2023-01-24] MEDS: BACLOFEN 10 MG TAB PO SCH ×3 (06:13→19:54)
[2023-01-24] MEDS: DOCUSATE 100 MG CAP PO SCH ×2 (06:13→16:05)
[2023-01-24] MEDS: GABAPENTIN 400 MG CAP PO SCH ×3 (06:13→19:54)
[2023-01-24] MEDS: SODIUM CHLORIDE 0.9% 1,000 ML IV SCH ×2 (06:15→15:08)
[2023-01-24 07:30] LABS: Glucose,Whole Blood 117 mg/dL (70-110)
[2023-01-24] MEDS: INSULIN ASPART (NovoLOG) 100 UNIT/ML VIAL SQ SCH ×4 (08:06→21:30)
--- NOTE | 2023-01-24 08:33 | P.PN ---
Subjective Progress Note Date: 01/23/23 Principal diagnosis: Fever and leukocytosis Patient is a 77-year-old male with a past medical history significant for hyperlipidemia CVA TIA angina in [facility]. Has been sent to the ER for evaluation of altered mental status with unknown baseline, patient on presentation to the hospital was running a low-grade fever of 99.1 F and also have elevated white of 18,000 UA was negative chest x-ray no pneumonia CT abdominal pelvis was subsequently done which shows gaseous distention of the sigmoid colon but no diverticulitis or perforation. On today's evaluation that is 01/23/2023, the patient is afebrile the patient is breathing comfortably on 2 L nasal cannula oxygen denies any chest pain shortness of breath or cough, no nausea vomiting no abdominal pain did not have any bowel movement. Patient blood cultures currently pending no CBC was done today potassium is 3.4 Objective - Vital Signs Vital signs: Vital Signs Temp 98.1 F 01/23/23 12:32 Pulse 68 01/23/23 12:32 Resp 16 01/23/23 12:32 BP 130/72 01/23/23 12:32 Pulse Ox 98 01/23/23 12:32 FiO2 Intake & Output 01/22/23 01/23/23 01/23/23 18:59 06:59 18:59 Intake Total 1200 Output Total 575 500 Balance -575 700 Weight 124.5 kg Intake: Oral 1200 Output: Urine 575 500 Other: Voiding Method External Catheter External Catheter External Catheter - Exam GENERAL DESCRIPTION: Elderly male lying in bed in no distress RESPIRATORY SYSTEM: Unlabored breathing , decreased breath sounds at bases HEART: S1 S2 regular rate and rhythm ,no loud murmurs ABDOMEN: Soft , no tenderness EXTREMITIES: No edema feet - Labs CBC & Chem 7: 01/22/23 06:35 01/23/23 10:34 Labs: Abnormal Lab Results - Last 24 Hours (Table) 01/23/23 01/23/23 Range/Units 10:34 12:36 Potassium 3.4 L (3.5-5.1) mmol/L POC Glucose (mg/dL) 129 H (70-110) mg/dL Assessment and Plan (1) Leukocytosis Current Visit: Yes Status: Acute Code(s): D72.829 - ELEVATED WHITE BLOOD CELL COUNT, UNSPECIFIED SNOMED Code(s): 083718943 Plan: 1patient was in the hospital mental status changes did have a low-grade fever elevated white count possibly metabolic as the patient did have elevated BUN and creatinine however underlying infectious etiology to be ruled out initial work- up negative with a negative UA and a chest x-ray is mostly pulmonary vascular congestion patient noticed to have some abdominal distention and a possible abdominal source need to be rule out as currently denies having any headache no evidence of any cellulitis or joint swelling. 2patient did have a CT abdominal pelvis which was significant distention of the sigmoid colon possibly responsible for this elevated white count and low-grade fever but no evidence of any diverticulitis or perforation. 3we will continue patient on Unasyn while waiting for the culture to finalize and repeat CBC with a.m. lab Dictation was produced using [employer] dictation software. please excuse any grammatical, word or spelling errors. Time with Patient: Less than 30
[2023-01-24] MEDS: MULTIVITAMINS, THERA 1 EACH TAB PO SCH (09:36)
[2023-01-24] MEDS: SENNOSIDES 8.6 MG TAB PO SCH ×2 (09:36→19:55)
[2023-01-24] MEDS: ISOSORBIDE MONONITRATE ER 30 MG TAB.ER.24H PO SCH (09:36)
[2023-01-24] MEDS: APIXABAN 5 MG TAB PO SCH ×2 (09:37→19:55)
[2023-01-24] MEDS: FAMOTIDINE 20 MG/2 ML VIAL IV SCH ×2 (09:38→19:58)
[2023-01-24] MEDS: polyethylene glycoL 3350 17 GM POWD.PACK PO SCH ×2 (09:38→19:59)
[2023-01-24] MEDS: RANOLAZINE 500 MG TAB.ER.12H PO SCH ×2 (09:39→19:55)
[2023-01-24 10:47] LABS: Basophils # (A) 0.05 X 10*3/uL (0.00-0.10); Basophils % (A) 0.6 %; Eosinophils # (A) 0.77 X 10*3/uL (0.04-0.35); Eosinophils % (A) 9.2 %; HCT 34.9 % (39.6-50.0); HGB 10.9 d/dL (13.0-17.0); Lymphocytes # (A) 1.56 X 10*3/uL (0.90-5.00); Lymphocytes % (A) 18.7 %; MCH 29.6 pg (27.0-32.0); MCHC 31.2 d/dL (32.0-37.0); MCV 94.8 FL (80.0-97.0); Mean Platelet Volume 12.8 FL (9.5-12.2); Monocytes % (A) 8.4 %; NRBC Per 100 WBC 0 X 10*3/uL (0.00-0.01); Neutrophils # (A) 5.24 X 10*3/uL (1.80-7.70); Neutrophils % (A) 62.7 %; Platelet Count 132 X 10*3/uL (140-440); RBC 3.68 X 10*6/uL (4.40-5.60); RDW 15.2 % (11.5-14.5); WBC 8.35 X 10*3/uL (4.50-10.00)
[2023-01-24 11:10] LABS: Magnesium 2.1 mg/dL (1.5-2.4)
[2023-01-24 11:19] LABS: ALT 16 U/L (10-49); AST 18 U/L (14-35); Albumin 3.1 d/dL (3.8-4.9); Albumin/Globulin Ratio 0.84 Ratio (1.60-3.17); Alkaline Phosphatase 71 U/L (41-126); BUN/Creat Ratio 20.46 Ratio (12.00-20.00); Blood Urea Nitrogen 26.6 mg/dL (9.0-27.0); Calcium 8.6 mg/dL (8.7-10.3); Carbon Dioxide 22.5 mmol/L (21.6-31.8); Chloride 105 mmol/L (96-109); Globulin 3.7 d/dL (1.6-3.3); Glucose 105 mg/dL (70-110); Potassium 3.3 mmol/L (3.5-5.5); Sodium 139 mmol/L (135-145); Total Bilirubin 0.3 mg/dL (0.3-1.2); Total Protein 6.8 d/dL (6.2-8.2)
[2023-01-24 12:13] LABS: Glucose,Whole Blood 141 mg/dL (70-110)
--- NOTE | 2023-01-24 13:38 | P.PN ---
Subjective Progress Note Date: 01/24/23 CHIEF COMPLAINT: Constipation HISTORY OF PRESENT ILLNESS: Patient denies any abdominal pain. He reports having bowel movements. He reports tolerating diet. Denies any nausea or vomiting. Patient reports that he is being discharged today. Afebrile. PHYSICAL EXAM: VITAL SIGNS: Reviewed. GENERAL: Well-developed in no acute distress. ABDOMEN: Soft. Nondistended. Nontender. ASSESSMENT: 1. Constipation improved PLAN: -Patient is having bowel movements. He is tolerating diet. He is stable for discharge from surgical standpoint Physician Chart Collector note has been reviewed by physician. Signing provider agrees with the documented findings, assessment, and plan of care. Objective - Vital Signs Vital signs: Vital Signs Temp 97.6 F 01/24/23 11:42 Pulse 57 L 01/24/23 11:42 Resp 16 01/24/23 11:42 BP 99/61 01/24/23 11:42 Pulse Ox 97 01/24/23 11:42 FiO2 Intake & Output 01/23/23 01/24/23 01/24/23 18:59 06:59 18:59 Intake Total 900 Output Total 600 Balance 300 Weight 109 kg Intake: Oral 900 Output: Urine 600 Other: Voiding Method External Catheter External Catheter External Catheter # Voids 2 # Bowel Movements 1 2 - Labs CBC & Chem 7: 01/24/23 05:43 01/24/23 05:43 Labs: Abnormal Lab Results - Last 24 Hours (Table) 01/23/23 01/24/23 01/24/23 Range/Units 20:01 05:43 05:43 RBC 3.68 L (4.40-5.60) X 10*6/uL Hgb 10.9 L (13.0-17.0) d/dL Hct 34.9 L (39.6-50.0) % MCHC 31.2 L (32.0-37.0) d/dL RDW 15.2 H (11.5-14.5) % Plt Count 132 L (140-440) X 10*3/uL MPV 12.8 H (9.5-12.2) FL Eosinophils # 0.77 H (0.04-0.35) X 10*3/uL Potassium 3.3 L (3.5-5.5) mmol/L Est GFR (CKD-EPI) 56 L (>=60) BUN/Creatinine Ratio 20.46 H (12.00-20.00) Ratio POC Glucose (mg/dL) 167 H (70-110) mg/dL Calcium 8.6 L (8.7-10.3) mg/dL Albumin 3.1 L (3.8-4.9) d/dL Globulin 3.7 H (1.6-3.3) d/dL Albumin/Globulin Ratio 0.84 L (1.60-3.17) Ratio 01/24/23 01/24/23 Range/Units 07:29 12:11 RBC (4.40-5.60) X 10*6/uL Hgb (13.0-17.0) d/dL Hct (39.6-50.0) % MCHC (32.0-37.0) d/dL RDW (11.5-14.5) % Plt Count (140-440) X 10*3/uL MPV (9.5-12.2) FL Eosinophils # (0.04-0.35) X 10*3/uL Potassium (3.5-5.5) mmol/L Est GFR (CKD-EPI) (>=60) BUN/Creatinine Ratio (12.00-20.00) Ratio POC Glucose (mg/dL) 117 H 141 H (70-110) mg/dL Calcium (8.7-10.3) mg/dL Albumin (3.8-4.9) d/dL Globulin (1.6-3.3) d/dL Albumin/Globulin Ratio (1.60-3.17) Ratio Microbiology - Last 24 Hours (Table) 01/22/23 18:50 Blood Culture - Preliminary Blood 01/22/23 18:07 Blood Culture - Preliminary Blood
--- NOTE | 2023-01-24 14:21 | P.PN ---
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 Nursing staff noted the patient has been acting weak, patient was unable to provide any history. Patient was recently admitted to the hospital for TIA at that time patient was found to have slurred speech as his presenting symptom. Initial lab work done in the ER showed WBC 18.6, hemoglobin 14.3, platelet count 136, sodium 140, potassium 3.9, BUN 43, creatinine 1.7 CT brain done showed no acute intracranial process Chest x-ray done in the ER showed cardiomegaly and mild pulmonary vascular congestion Patient admitted to medicine service 01/23. Patient seen and examined. CT, done showed gaseous distention of the sigmoid colon, no evidence of volvulus. Correlate for ileus vs oqilivie sy ndrome. 01/24: Patient seen and everted bedside, patient continued to remain confused. At this point we will continue to monitor her mentation. Continue to encourage diet and she'll discharge within the next 24 hours Objective - Vital Signs Vital signs: Vital Signs Temp 97.6 F 01/24/23 11:42 Pulse 57 L 01/24/23 11:42 Resp 16 01/24/23 11:42 BP 99/61 01/24/23 11:42 Pulse Ox 97 01/24/23 11:42 FiO2 Intake & Output 01/23/23 01/24/23 01/24/23 18:59 06:59 18:59 Intake Total 900 Output Total 600 Balance 300 Weight 109 kg Intake: Oral 900 Output: Urine 600 Other: Voiding Method External Catheter External Catheter External Catheter # Voids 2 # Bowel Movements 1 2 - Exam PHYSICAL EXAMINATION: GENERAL: The patient is alert and oriented x 1, not in any acute distress. Well developed, well nourished. HEENT: Pupils are round and equally reacting to light. EOMI. No scleral icterus. No conjunctival pallor. Normocephalic, atraumatic. No pharyngeal erythema. No thyromegaly. CARDIOVASCULAR: S1 and S2 present. No murmurs, rubs, or gallops. PULMONARY: Chest is clear to auscultation, no wheezing or crackles. ABDOMEN: Soft,, distended MUSCULOSKELETAL: No joint swelling or deformity. Lower extremity edema EXTREMITIES: No cyanosis, clubbing, or pedal edema. NEUROLOGICAL: Gross neurological examination did not reveal any focal deficits. Impaired memory SKIN: No rashes. - Labs CBC & Chem 7: 01/24/23 05:43 01/24/23 05:43 Labs: Abnormal Lab Results - Last 24 Hours (Table) 01/23/23 01/24/23 01/24/23 Range/Units 20:01 05:43 05:43 RBC 3.68 L (4.40-5.60) X 10*6/uL Hgb 10.9 L (13.0-17.0) d/dL Hct 34.9 L (39.6-50.0) % MCHC 31.2 L (32.0-37.0) d/dL RDW 15.2 H (11.5-14.5) % Plt Count 132 L (140-440) X 10*3/uL MPV 12.8 H (9.5-12.2) FL Eosinophils # 0.77 H (0.04-0.35) X 10*3/uL Potassium 3.3 L (3.5-5.5) mmol/L Est GFR (CKD-EPI) 56 L (>=60) BUN/Creatinine Ratio 20.46 H (12.00-20.00) Ratio POC Glucose (mg/dL) 167 H (70-110) mg/dL Calcium 8.6 L (8.7-10.3) mg/dL Albumin 3.1 L (3.8-4.9) d/dL Globulin 3.7 H (1.6-3.3) d/dL Albumin/Globulin Ratio 0.84 L (1.60-3.17) Ratio 01/24/23 01/24/23 Range/Units 07:29 12:11 RBC (4.40-5.60) X 10*6/uL Hgb (13.0-17.0) d/dL Hct (39.6-50.0) % MCHC (32.0-37.0) d/dL RDW (11.5-14.5) % Plt Count (140-440) X 10*3/uL MPV (9.5-12.2) FL Eosinophils # (0.04-0.35) X 10*3/uL Potassium (3.5-5.5) mmol/L Est GFR (CKD-EPI) (>=60) BUN/Creatinine Ratio (12.00-20.00) Ratio POC Glucose (mg/dL) 117 H 141 H (70-110) mg/dL Calcium (8.7-10.3) mg/dL Albumin (3.8-4.9) d/dL Globulin (1.6-3.3) d/dL Albumin/Globulin Ratio (1.60-3.17) Ratio Microbiology - Last 24 Hours (Table) 01/22/23 18:50 Blood Culture - Preliminary Blood 01/22/23 18:07 Blood Culture - Preliminary Blood Assessment and Plan Assessment: Assessment and plan Acute metabolic encephalopathy History of atrial fibrillation on Eliquis Congestive heart failure chronic diastolic dysfunction with mild acute exacerbation Coronary artery disease History of CVA with right hemiparesis Hyperlipidemia 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 fib continue current medications including Eliquis, metoprolol * In regards to sacral decub ulcer present on admission. Continue IV anti biotics on Zosyn transition to oral antibiotics and upon discharge seen by infectious disease * In regards to elevated leukocytosis likely source intra-abdominal. CT abdomen pelvis shows extensive discussion tension no diverticulitis noted. On Zosyn transition to Augmentin upon discharge * In regards to history of CAD continue patient on Lipitor and Eliquis
[2023-01-24] MEDS: POTASSIUM CHLORIDE 10 MEQ in WATER FOR INJECTION 1 100ML.BAG IVPB SCH ×2 (15:17→16:04)
[2023-01-24 17:20] LABS: Glucose,Whole Blood 186 mg/dL (70-110)
[2023-01-24] MEDS: PRIMIDONE 50 MG TAB PO SCH (19:55)
[2023-01-24] MEDS: PARoxetine 10 MG TAB PO SCH (19:55)
[2023-01-24] MEDS: ATORVASTATIN 40 MG TAB PO SCH (19:55)
[2023-01-24] MEDS: TAMSULOSIN 0.4 MG CAP.ER.24H PO SCH (19:55)
[2023-01-24 20:38] LABS: Glucose,Whole Blood 181 mg/dL (70-110)
[2023-01-25] MEDS: DOCUSATE 100 MG CAP PO SCH (00:22)
[2023-01-25 07:36] LABS: Glucose,Whole Blood 130 mg/dL (70-110)
[2023-01-25] MEDS: INSULIN ASPART (NovoLOG) 100 UNIT/ML VIAL SQ SCH ×2 (07:37→12:08)
[2023-01-25 07:48] VITALS: RESP 20
--- NOTE | 2023-01-25 08:10 | P.PN ---
Subjective Progress Note Date: 01/24/23 Principal diagnosis: Fever and leukocytosis Patient is a 77-year-old male with a past medical history significant for hyperlipidemia CVA TIA angina in [facility] resident. Has been sent to the ER for evaluation of altered mental status with unknown baseline, patient on presentation to the hospital was running a low-grade fever of 99.1 F and also have elevated white of 18,000 UA was negative chest x-ray no pneumonia CT abdominal pelvis was subsequently done which shows gaseous distention of the sigmoid colon but no diverticulitis or perforation. On today's evaluation that is 01/24/2023 the patient remains to be afebrile, the patient is breathing comfortably on 2 L nasal cannula oxygen, patient denies having any chest pain shortness of breath or cough no nausea vomiting no abdominal pain did have a bowel movement. Patient white count normalized to 8.35, creatinine is 1.3 blood culture has been pending so far Objective - Vital Signs Vital signs: Vital Signs Temp 97.6 F 01/24/23 11:42 Pulse 57 L 01/24/23 11:42 Resp 16 01/24/23 11:42 BP 99/61 01/24/23 11:42 Pulse Ox 97 01/24/23 11:42 FiO2 Intake & Output 01/24/23 01/24/23 01/25/23 06:59 18:59 06:59 Weight 109 kg Other: Voiding Method External Catheter External Catheter # Voids 2 # Bowel Movements 1 1 - Exam GENERAL DESCRIPTION: Elderly male lying in bed in no distress RESPIRATORY SYSTEM: Unlabored breathing , decreased breath sounds at bases HEART: S1 S2 regular rate and rhythm ,no loud murmurs ABDOMEN: Soft , no tenderness EXTREMITIES: No edema feet - Labs CBC & Chem 7: 01/24/23 05:43 01/24/23 05:43 Labs: Abnormal Lab Results - Last 24 Hours (Table) 01/24/23 01/24/23 01/24/23 Range/Units 05:43 05:43 07:29 RBC 3.68 L (4.40-5.60) X 10*6/uL Hgb 10.9 L (13.0-17.0) d/dL Hct 34.9 L (39.6-50.0) % MCHC 31.2 L (32.0-37.0) d/dL RDW 15.2 H (11.5-14.5) % Plt Count 132 L (140-440) X 10*3/uL MPV 12.8 H (9.5-12.2) FL Eosinophils # 0.77 H (0.04-0.35) X 10*3/uL Potassium 3.3 L (3.5-5.5) mmol/L Est GFR (CKD-EPI) 56 L (>=60) BUN/Creatinine Ratio 20.46 H (12.00-20.00) Ratio POC Glucose (mg/dL) 117 H (70-110) mg/dL Calcium 8.6 L (8.7-10.3) mg/dL Albumin 3.1 L (3.8-4.9) d/dL Globulin 3.7 H (1.6-3.3) d/dL Albumin/Globulin Ratio 0.84 L (1.60-3.17) Ratio 01/24/23 01/24/23 01/24/23 Range/Units 12:11 17:18 20:36 RBC (4.40-5.60) X 10*6/uL Hgb (13.0-17.0) d/dL Hct (39.6-50.0) % MCHC (32.0-37.0) d/dL RDW (11.5-14.5) % Plt Count (140-440) X 10*3/uL MPV (9.5-12.2) FL Eosinophils # (0.04-0.35) X 10*3/uL Potassium (3.5-5.5) mmol/L Est GFR (CKD-EPI) (>=60) BUN/Creatinine Ratio (12.00-20.00) Ratio POC Glucose (mg/dL) 141 H 186 H 181 H (70-110) mg/dL Calcium (8.7-10.3) mg/dL Albumin (3.8-4.9) d/dL Globulin (1.6-3.3) d/dL Albumin/Globulin Ratio (1.60-3.17) Ratio Microbiology - Last 24 Hours (Table) 01/22/23 18:50 Blood Culture - Preliminary Blood 01/22/23 18:07 Blood Culture - Preliminary Blood Assessment and Plan (1) Leukocytosis Current Visit: Yes Status: Acute Code(s): D72.829 - ELEVATED WHITE BLOOD CELL COUNT, UNSPECIFIED SNOMED Code(s): 250750863 Plan: 1patient was in the hospital mental status changes did have a low-grade fever elevated white count possibly metabolic as the patient did have elevated BUN and creatinine however underlying infectious etiology to be ruled out initial work- up negative with a negative UA and a chest x-ray is mostly pulmonary vascular congestion patient noticed to have some abdominal distention and a possible abdominal source need to be rule out as currently denies having any headache no evidence of any cellulitis or joint swelling. 2patient did have a CT abdominal pelvis which was significant distention of the sigmoid colon possibly responsible for this elevated white count and low-grade fever but no evidence of any diverticulitis or perforation. 3the patient fever has resolved and the patient white count normalized we will continue patient on Unasyn while inpatient and finishing therapy with oral Augmentin, continue supportive care Dictation was produced using [employer] dictation software. please excuse any grammatical, word or spelling errors. Time with Patient: Less than 30
[2023-01-25] MEDS: SODIUM CHLORIDE 0.9% 1,000 ML IV SCH (08:42)
[2023-01-25] MEDS: PIPERACILLIN-TAZOBACTAM 3.375 GM in SODIUM CHLORIDE 0.9% 100 ML IVPB SCH (08:42)
[2023-01-25] MEDS: ISOSORBIDE MONONITRATE ER 30 MG TAB.ER.24H PO SCH (08:43)
[2023-01-25] MEDS: BACLOFEN 10 MG TAB PO SCH (08:43)
[2023-01-25] MEDS: GABAPENTIN 400 MG CAP PO SCH (08:43)
[2023-01-25] MEDS: MULTIVITAMINS, THERA 1 EACH TAB PO SCH (08:43)
[2023-01-25] MEDS: RANOLAZINE 500 MG TAB.ER.12H PO SCH (08:43)
[2023-01-25] MEDS: FAMOTIDINE 20 MG/2 ML VIAL IV SCH (08:43)
[2023-01-25] MEDS: APIXABAN 5 MG TAB PO SCH (08:43)
[2023-01-25] MEDS: METOPROLOL TARTRATE 25 MG TAB PO SCH (08:43)
[2023-01-25] MEDS: SENNOSIDES 8.6 MG TAB PO SCH (08:44)
[2023-01-25] MEDS: polyethylene glycoL 3350 17 GM POWD.PACK PO SCH (08:44)
[2023-01-25 09:02] LABS: HGB 11.8 d/dL (13.0-17.0); MCH 29.8 pg (27.0-32.0); MCHC 31.9 d/dL (32.0-37.0); MCV 93.4 FL (80.0-97.0); Mean Platelet Volume 12.4 FL (9.5-12.2); NRBC Per 100 WBC 0 X 10*3/uL (0.00-0.01); Platelet Count 149 X 10*3/uL (140-440); RBC 3.96 X 10*6/uL (4.40-5.60); RDW 15.2 % (11.5-14.5); WBC 8.99 X 10*3/uL (4.50-10.00)
[2023-01-25 09:07] LABS: Blood Urea Nitrogen 19.8 mg/dL (9.0-27.0); Calcium 8.3 mg/dL (8.7-10.3); Carbon Dioxide 20.8 mmol/L (21.6-31.8); Chloride 109 mmol/L (96-109); Glucose 126 mg/dL (70-110); Potassium 3.3 mmol/L (3.5-5.5); Sodium 141 mmol/L (135-145)
[2023-01-25] MEDS ORDERED: POTASSIUM CHLORIDE ER 20 MEQ TAB.ER PO STA (09:12)
[2023-01-25] MEDS ORDERED: AMOXIC-POT CLAV 875-125MG 1 EACH TAB PO SCH (09:30)
--- NOTE | 2023-01-25 10:22 | P.DS ---
Providers Date of admission: 01/21/23 20:05 Expected date of discharge: 01/25/23 Attending physician: Maylin Luis Consults: 01/22/23 09:57 Consult Physician Routine Consulting Provider: Charlene Colin Consult Reason/Comments: Leukocytosis, low-grade fever Do you want consulting provider notified?: Yes 01/22/23 10:05 Consult Physician Routine Consulting Provider: Tristan Shoemaker Consult Reason/Comments: Encephalopathy Do you want consulting provider notified?: Yes 01/23/23 10:05 Consult Physician Routine Consulting Provider: Daniel Valles Consult Reason/Comments: Abnormal CT of abdomen, constipation Do you want consulting provider notified?: Yes Primary care physician: Nabila Chowdhury DO Hospital Course: 77-year-old with 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 Nursing staff noted the patient has been acting weak, patient was unable to provide any history. Patient was recently admitted to the hospital for TIA at that time patient was found to have slurred speech as his presenting symptom. Initial lab work done in the ER showed WBC 18.6, hemoglobin 14.3, platelet count 136, sodium 140, potassium 3.9, BUN 43, creatinine 1.7 CT brain done showed no acute intracranial process Chest x-ray done in the ER showed cardiomegaly and mild pulmonary vascular congestion Patient admitted to medicine service 01/23. Patient seen and examined. CT, done showed gaseous distention of the sigmoid colon, no evidence of volvulus. Correlate for ileus vs oqilivie syndrome. 01/24: Patient seen and everted bedside, patient continued to remain confused. At this point we will continue to monitor her mentation. Continue to encourage diet and she'll discharge within the next 24 hours 01/25: Patient seen and evaluated bedside, blood work reviewed lab work reviewed. Transition to oral Augmentin. Discharged rectal facility prescription for controlled substance provided PHYSICAL EXAMINATION: GENERAL: The patient is alert and oriented x 3 , not in any acute distress. Well developed, well nourished. HEENT: Pupils are round and equally reacting to light. EOMI. No scleral icterus. No conjunctival pallor. Normocephalic, atraumatic. No pharyngeal erythema. No thyromegaly. CARDIOVASCULAR: S1 and S2 present. No murmurs, rubs, or gallops. PULMONARY: Chest is clear to auscultation, no wheezing or crackles. ABDOMEN: Soft,, distended MUSCULOSKELETAL: No joint swelling or deformity. Lower extremity edema EXTREMITIES: No cyanosis, clubbing, or pedal edema. NEUROLOGICAL: Gross neurological examination did not reveal any focal deficits. Impaired memory SKIN: No rashes. 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 fib continue current medications including Eliquis, metoprolol * In regards to sacral decub ulcer present on admission. IV antibiotics on Zosyn transition to oral antibiotics and upon discharge seen by infectious disease * In regards to elevated leukocytosis likely source intra-abdominal. CT abdomen pelvis shows extensive discussion tension no diverticulitis noted. On Zosyn transition to Augmentin upon discharge * In regards to history of CAD continue patient on Lipitor and Eliquis Patient Condition at Discharge: Fair Plan - Discharge Summary Discharge Rx Participant: No New Discharge Prescriptions: New Amoxic-Pot Clav 875-125Mg [Augmentin 875-125] 1 each PO Q12HR 5 Days #10 tab Continue Cholecalciferol [Vitamin D3 (25 Mcg = 1000 Iu)] 25 mcg PO DAILY@0600 Sennosides [Senokot] 8.6 mg PO HS@2000 polyethylene glycoL 3350 [Miralax] 17 gm PO DAILY PARoxetine [Paxil] 10 mg PO HS@2000 Omeprazole 20 mg PO HS@2000 Tamsulosin [Flomax] 0.4 mg PO HS@2000 Nitroglycerin Sl Tabs [Nitrostat] 0.4 mg SL Q5M PRN PRN Reason: Chest Pain Apixaban [Eliquis] 5 mg PO BID Multivitamins, Thera [Multivitamin (formulary)] 1 tab PO DAILY Docusate [Colace] 100 mg PO BID@0700,1600 Menthol [Biofreeze] 1 applic TOPICAL Q8H PRN PRN Reason: left knee pain Amino Acids/Protein Hydrolys [Pro-Stat Awc Liquid] 30 ml PO DAILY Sennosides [Senokot] 17.2 mg PO DAILY Primidone [Mysoline] 50 mg PO HS@1999 Atorvastatin [Lipitor] 40 mg PO HS@1999 Isosorbide Mononitrate ER [Imdur] 30 mg PO DAILY #30 tab Acetaminophen Tab [Tylenol] 1,000 mg PO BID PRN PRN Reason: Pain Ranolazine [Ranexa] 500 mg PO BID@0700,1900 Bumetanide [BUMEX] 2 mg PO BID Metoprolol Tartrate [Lopressor] 25 mg PO BID@0700,1900 glipiZIDE [Glucotrol] 10 mg PO DAILY glipiZIDE [Glucotrol] 5 mg PO HS Nystatin 100,000 Unit/gm Powd [Mycostatin Powder] 1 applic TOPICAL BID Baclofen 10 mg PO TID@0700,1300,1900 3 Days #9 tab Gabapentin [Neurontin] 400 mg PO TID@0700,1300,1900 3 Days #9 cap Changed HYDROcodone/APAP 5-325MG [[place] 5-325] 1 tab PO QID@05,11,17,23 3 Days #12 tab No Action Menthol [Biofreeze] 1 applic TOPICAL QID@05,11,17,23 Discharge Medication List Cholecalciferol [Vitamin D3 (25 Mcg = 1000 Iu)] 25 mcg PO DAILY@0600 01/17/22 [History] Omeprazole 20 mg PO HS@199901/17/22 [History] PARoxetine [Paxil] 10 mg PO HS@199901/17/22 [History] Primidone [Mysoline] 50 mg PO HS@199901/17/22 [History] Sennosides [Senokot] 8.6 mg PO HS@199901/17/22 [History] Sennosides [Senokot] 17.2 mg PO DAILY 01/17/22 [History] Tamsulosin [Flomax] 0.4 mg PO HS@199901/17/22 [History] polyethylene glycoL 3350 [Miralax] 17 gm PO DAILY 01/17/22 [History] Atorvastatin [Lipitor] 40 mg PO HS@199903/01/22 [History] Nitroglycerin Sl Tabs [Nitrostat] 0.4 mg SL Q5M PRN 03/01/22 [History] Apixaban [Eliquis] 5 mg PO BID 08/04/22 [History] Multivitamins, Thera [Multivitamin (formulary)] 1 tab PO DAILY 08/04/22 [History] Isosorbide Mononitrate ER [Imdur] 30 mg PO DAILY #30 tab 08/12/22 [Rx] Acetaminophen Tab [Tylenol] 1,000 mg PO BID PRN 09/07/22 [History] Docusate [Colace] 100 mg PO BID@0700,1600 09/07/22 [History] Ranolazine [Ranexa] 500 mg PO BID@0700,1900 09/07/22 [History] Bumetanide [BUMEX] 2 mg PO BID 01/06/23 [History] Menthol [Biofreeze] 1 applic TOPICAL Q8H PRN 01/06/23 [History] Menthol [Biofreeze] 1 applic TOPICAL QID@05,,,01/06/23 [History] Metoprolol Tartrate [Lopressor] 25 mg PO BID@0700,1900 01/06/23 [History] Amino Acids/Protein Hydrolys [Pro-Stat Awc Liquid] 30 ml PO DAILY 01/21/23 [History] Nystatin 100,000 Unit/gm Powd [Mycostatin Powder] 1 applic TOPICAL BID 01/21/23 [History] glipiZIDE [Glucotrol] 5 mg PO HS 01/21/23 [History] glipiZIDE [Glucotrol] 10 mg PO DAILY 01/21/23 [History] Amoxic-Pot Clav 875-125Mg [Augmentin 875-125] 1 each PO Q12HR 5 Days #10 tab 01/25/23 [Rx] Baclofen 10 mg PO TID@0700,1300,1900 3 Days #9 tab 01/25/23 [Rx] Gabapentin [Neurontin] 400 mg PO TID@0700,1300,1900 3 Days #9 cap 01/25/23 [Rx] HYDROcodone/APAP 5-325MG [[place] 5-325] 1 tab PO QID@05,,, 3 Days #12 tab 01/25/23 [Rx] Follow up Appointment(s)/Referral(s): Nabila Chowdhury DO [Primary Care Provider] - 1-2 days Discharge Disposition: TRANSFER TO SNF/ECF
[2023-01-25 11:44] VITALS: BP 126/63; PULSE 58; TEMP 98.6
[2023-01-25 12:04] LABS: Glucose,Whole Blood 145 mg/dL (70-110)
--- NOTE | 2023-01-25 13:34 | P.PN ---
Subjective Progress Note Date: 01/25/23 Principal diagnosis: Fever and leukocytosis Patient is a 77-year-old male with a past medical history significant for hyperlipidemia CVA TIA angina in [facility] resident. Has been sent to the ER for evaluation of altered mental status with unknown baseline, patient on presentation to the hospital was running a low-grade fever of 99.1 F and also have elevated white of 18,000 UA was negative chest x-ray no pneumonia CT abdominal pelvis was subsequently done which shows gaseous distention of the sigmoid colon but no diverticulitis or perforation. On today's evaluation that is 01/25/2023 the patient denies any fever or chills, the patient is breathing comfortably on 2 L cannula oxygen the patient is more awake and alert no chest pain shortness with a cough no nausea vomiting abdominal pain no diarrhea. The patient white count is normal at 8.9 and creatinine is 1.2, blood culture has been negative Objective - Vital Signs Vital signs: Vital Signs Temp 98.6 F 01/25/23 11:23 Pulse 58 L 01/25/23 11:23 Resp 20 01/25/23 11:23 BP 126/63 01/25/23 11:23 Pulse Ox 98 01/25/23 11:23 FiO2 Intake & Output 01/24/23 01/25/23 01/25/23 18:59 06:59 18:59 Other: Voiding Method External Catheter Diaper Diaper External Catheter External Catheter # Voids 3 # Bowel Movements 1 1 - Exam GENERAL DESCRIPTION: Elderly male lying in bed in no distress RESPIRATORY SYSTEM: Unlabored breathing , decreased breath sounds at bases HEART: S1 S2 regular rate and rhythm ,no loud murmurs ABDOMEN: Soft , no tenderness EXTREMITIES: No edema feet - Labs CBC & Chem 7: 01/25/23 05:53 01/25/23 05:53 Labs: Abnormal Lab Results - Last 24 Hours (Table) 01/24/23 01/24/23 01/25/23 Range/Units 17:18 20:36 05:53 RBC 3.96 L (4.40-5.60) X 10*6/uL Hgb 11.8 L (13.0-17.0) d/dL Hct 37.0 L (39.6-50.0) % MCHC 31.9 L (32.0-37.0) d/dL RDW 15.2 H (11.5-14.5) % MPV 12.4 H (9.5-12.2) FL Potassium (3.5-5.5) mmol/L Carbon Dioxide (21.6-31.8) mmol/L Glucose (70-110) mg/dL POC Glucose (mg/dL) 186 H 181 H (70-110) mg/dL Calcium (8.7-10.3) mg/dL 01/25/23 01/25/23 01/25/23 Range/Units 05:53 07:24 11:55 RBC (4.40-5.60) X 10*6/uL Hgb (13.0-17.0) d/dL Hct (39.6-50.0) % MCHC (32.0-37.0) d/dL RDW (11.5-14.5) % MPV (9.5-12.2) FL Potassium 3.3 L (3.5-5.5) mmol/L Carbon Dioxide 20.8 L (21.6-31.8) mmol/L Glucose 126 H (70-110) mg/dL POC Glucose (mg/dL) 130 H 145 H (70-110) mg/dL Calcium 8.3 L (8.7-10.3) mg/dL Microbiology - Last 24 Hours (Table) 01/22/23 18:50 Blood Culture - Preliminary Blood 01/22/23 18:07 Blood Culture - Preliminary Blood Assessment and Plan (1) Leukocytosis Status: Acute Code(s): D72.829 - ELEVATED WHITE BLOOD CELL COUNT, UNSPECIFIED SNOMED Code(s): 153935620 Plan: 1patient was in the hospital mental status changes did have a low-grade fever elevated white count possibly metabolic as the patient did have elevated BUN and creatinine however underlying infectious etiology to be ruled out initial work- up negative with a negative UA and a chest x-ray is mostly pulmonary vascular congestion patient noticed to have some abdominal distention and a possible abdominal source need to be rule out as currently denies having any headache no evidence of any cellulitis or joint swelling. 2patient did have a CT abdominal pelvis which was significant distention of the sigmoid colon possibly responsible for this elevated white count and low-grade fever but no evidence of any diverticulitis or perforation. 3the patient fever has resolved and the patient white count normalized, 4- plan is to finish therapy with oral Augmentin and close outpatient follow-up Dictation was produced using [employer] dictation software. please excuse any grammatical, word or spelling errors. Time with Patient: Less than 30
--- NOTE | 2023-01-25 14:05 | P.PN ---
Subjective Progress Note Date: 01/25/23 CHIEF COMPLAINT: Constipation HISTORY OF PRESENT ILLNESS: Patient seen this morning. Patient denies any abdominal pain. He reports having bowel movements. He reports tolerating diet. Denies any nausea or vomiting. Patient reports that he is being discharged today. Afebrile. PHYSICAL EXAM: VITAL SIGNS: Reviewed. GENERAL: Well-developed in no acute distress. ABDOMEN: Soft. Nondistended. Nontender. ASSESSMENT: 1. Constipation improved PLAN: -Patient is having bowel movements. He is tolerating diet. He is stable for discharge from surgical standpoint [employer] note has been reviewed by physician. Signing provider agrees with the documented findings, assessment, and plan of care. Objective - Vital Signs Vital signs: Vital Signs Temp 98.6 F 01/25/23 11:23 Pulse 58 L 01/25/23 11:23 Resp 20 01/25/23 11:23 BP 126/63 01/25/23 11:23 Pulse Ox 98 01/25/23 11:23 FiO2 Intake & Output 01/24/23 01/25/23 01/25/23 18:59 06:59 18:59 Other: Voiding Method External Catheter Diaper Diaper External Catheter External Catheter # Voids 3 # Bowel Movements 1 1 - Labs CBC & Chem 7: 01/25/23 05:53 01/25/23 05:53 Labs: Abnormal Lab Results - Last 24 Hours (Table) 01/24/23 01/24/23 01/25/23 Range/Units 17:18 20:36 05:53 RBC 3.96 L (4.40-5.60) X 10*6/uL Hgb 11.8 L (13.0-17.0) d/dL Hct 37.0 L (39.6-50.0) % MCHC 31.9 L (32.0-37.0) d/dL RDW 15.2 H (11.5-14.5) % MPV 12.4 H (9.5-12.2) FL Potassium (3.5-5.5) mmol/L Carbon Dioxide (21.6-31.8) mmol/L Glucose (70-110) mg/dL POC Glucose (mg/dL) 186 H 181 H (70-110) mg/dL Calcium (8.7-10.3) mg/dL 0801/25/23 01/25/23 Range/Units 05:53 07:24 11:55 RBC (4.40-5.60) X 10*6/uL Hgb (13.0-17.0) d/dL Hct (39.6-50.0) % MCHC (32.0-37.0) d/dL RDW (11.5-14.5) % MPV (9.5-12.2) FL Potassium 3.3 L (3.5-5.5) mmol/L Carbon Dioxide 20.8 L (21.6-31.8) mmol/L Glucose 126 H (70-110) mg/dL POC Glucose (mg/dL) 130 H 145 H (70-110) mg/dL Calcium 8.3 L (8.7-10.3) mg/dL Microbiology - Last 24 Hours (Table) 01/22/23 18:50 Blood Culture - Preliminary Blood 01/22/23 18:07 Blood Culture - Preliminary Blood
== END 2023-01-25 13:27 ==
LOC: EC 15:18 → 5NMEDONC 20:05
PROVIDERS: ADMIT Hospitalist; ATTEND Hospitalist
DX: G93.41 Metabolic encephalopathy (principal); E78.5 Hyperlipidemia, unspecified; F05 Delirium due to known physiological condition; D72.829 Elevated white blood cell count, unspecified; I48.91 Unspecified atrial fibrillation; I13.0 Hypertensive heart and chronic kidney disease with heart failure and stage 1 through stage 4 chronic kidney disease, or unspecified chronic kidney disease; I50.32 Chronic diastolic (congestive) heart failure; E11.22 Type 2 diabetes mellitus with diabetic chronic kidney disease; K21.9 Gastro-esophageal reflux disease without esophagitis; K59.00 Constipation, unspecified; N17.9 Acute kidney failure, unspecified; N18.2 Chronic kidney disease, stage 2 (mild); I25.10 Atherosclerotic heart disease of native coronary artery without angina pectoris; E11.42 Type 2 diabetes mellitus with diabetic polyneuropathy; G89.29 Other chronic pain; M54.50 Low back pain, unspecified; L89.159 Pressure ulcer of sacral region, unspecified stage; R53.81 Other malaise; F10.21 Alcohol dependence, in remission; E87.1 Hypo-osmolality and hyponatremia; R79.89 Other specified abnormal findings of blood chemistry; E66.9 Obesity, unspecified; I69.351 Hemiplegia and hemiparesis following cerebral infarction affecting right dominant side; Z87.891 Personal history of nicotine dependence; Z20.822 Contact with and (suspected) exposure to COVID-19; Z99.3 Dependence on wheelchair; Z79.01 Long term (current) use of anticoagulants; Z79.84 Long term (current) use of oral hypoglycemic drugs; Z79.899 Other long term (current) drug therapy
CPT/HCPCS: 36415; 70450; 71045; 74176; 80048; 80053; 81001; 82248; 82607; 82746; 83036; 83605; 83735; 83880; 84100; 84132; 84145; 84439; 84443; 84484; 85025; 85027; 85610; 85730; 87040; 87635; 94760; 96361; 96365; 96366; 96367; 96372; 96375; 96376; 99285

== ENCOUNTER 2023-06-06 15:46 | Emergency (ER) | payer MEDICARE, OTHER ==
--- NOTE | 2023-06-06 16:33 | ED ---
General Adult HPI - General Chief complaint: Fall Stated complaint: Fall Time Seen by Provider: 06/06/23 15:50 Source: patient, EMS, RN notes reviewed, old records reviewed Mode of arrival: EMS Limitations: no limitations - History of Present Illness Initial comments: This a 77-year-old male who slipped out of a chair and hit his head. Patient is on eliquis. EMS gave quite a bit of a history as well. Patient states he hit his head quite hard. He has no headache. Patient denies any sites of bleeding. Patient denies any neck pain. Patient has complete paralysis of his right side but he has no new weakness on his left side. Patient does complain of left ankle pain. Patient denies any knee pain or hip pain. Patient denies any chest pain or back pain. Patient denies abdominal pain. Patient denies any upper extremity pain. - Related Data Home Medications Medication Instructions Recorded Confirmed Cholecalciferol [Vitamin D3 (25 25 mcg PO DAILY@0600 01/17/22 06/06/23 Mcg = 1000 Iu)] PARoxetine [Paxil] 10 mg PO HS@199901/17/22 06/06/23 Primidone [Mysoline] 50 mg PO HS@199901/17/22 06/06/23 Tamsulosin [Flomax] 0.4 mg PO HS@199901/17/22 06/06/23 polyethylene glycoL 3350 [Miralax] 17 gm PO DAILY 01/17/22 06/06/23 Atorvastatin [Lipitor] 40 mg PO HS@199903/01/22 06/06/23 Nitroglycerin Sl Tabs [Nitrostat] 0.4 mg SL Q5M PRN 03/01/22 06/06/23 Apixaban [Eliquis] 5 mg PO BID 08/04/22 06/06/23 Multivitamins, Thera [Multivitamin 1 tab PO DAILY 08/04/22 06/06/23 (formulary)] Acetaminophen Tab [Tylenol] 1,000 mg PO BID PRN 09/07/22 06/06/23 Docusate [Colace] 100 mg PO HS@199909/07/22 06/06/23 Ranolazine [Ranexa] 500 mg PO BID@0700,1900 09/07/22 06/06/23 Bumetanide [BUMEX] 2 mg PO BID 01/06/23 06/06/23 Menthol [Biofreeze] 1 applic TOPICAL Q8H PRN 01/06/23 06/06/23 Menthol [Biofreeze] 1 applic TOPICAL QID@05,11,17,23 01/06/23 06/06/23 Metoprolol Tartrate [Lopressor] 25 mg PO BID@0700,1900 01/06/23 06/06/23 glipiZIDE [Glucotrol] 5 mg PO HS 01/21/23 06/06/23 glipiZIDE [Glucotrol] 10 mg PO DAILY 01/21/23 06/06/23 Lansoprazole 15 mg PO DAILY 06/06/23 06/06/23 Latanoprost [Latanoprost 0.005%] 1 drop LEFT EYE HS 06/06/23 06/06/23 Potassium Chloride ER [K-Dur 10] 10 meq PO BID 06/06/23 06/06/23 Previous Rx's Medication Instructions Recorded Isosorbide Mononitrate ER [Imdur] 30 mg PO DAILY #30 tab 08/12/22 Baclofen 10 mg PO TID@0700,1300,1900 3 Days 01/25/23 #9 tab Gabapentin [Neurontin] 400 mg PO TID@0700,1300,1900 3 01/25/23 Days #9 cap HYDROcodone/APAP 5-325MG [[place] 1 tab PO QID@05,11,,23 3 Days 01/25/23 5-325] #12 tab Allergies Allergy/AdvReac Type Severity Reaction Status Date / Time No Known Allergies Allergy Verified 06/06/23 18:08 Review of Systems ROS Statement: Those systems with pertinent positive or pertinent negative responses have been documented in the HPI. ROS Other: All systems not noted in ROS Statement are negative. Past Medical History Past Medical History: Chest Pain / Angina, CVA/TIA, Hyperlipidemia Additional Past Medical History / Comment(s): STROKE IN 2008 History of Any Multi-Drug Resistant Organisms: None Reported Past Surgical History: Appendectomy, Orthopedic Surgery Past Anesthesia/Blood Transfusion Reactions: No Reported Reaction Past Psychological History: No Psychological Hx Reported, Depression Smoking Status: Never smoker Past Alcohol Use History: None Reported Past Drug Use History: None Reported General Exam - General Exam Comments Initial Comments: GENERAL: Patient is well-developed and well-nourished. Patient is nontoxic and well- hydrated and is in no acute distress. ENT: Neck is soft and supple. No significant lymphadenopathy is noted. Oropharynx is clear. Moist mucous membranes. Neck has full range of motion without eliciting any pain. No signs of any head trauma no contusion or bruising noted. EYES: The sclera were anicteric and conjunctiva were pink and moist. Extraocular movements were intact and pupils were equal round and reactive to light. Eyelids were unremarkable. PULMONARY: Unlabored respirations. Good breath sounds bilaterally. No audible rales rhonchi or wheezing was noted. CARDIOVASCULAR: There is a regular rate and rhythm without any murmurs gallops or rubs. ABDOMEN: Soft and nontender with normal bowel sounds. SKIN: Skin is clear with no lesions or rashes and otherwise unremarkable. NEUROLOGIC: Patient is alert and oriented x3. Cranial nerves II through XII are grossly intact. Patient is unable to move his right arm or leg which is his baseline MUSCULOSKELETAL: Patient has some tenderness in the ankle on the lateral aspect. LYMPHATICS: No significant lymphadenopathy is noted PSYCHIATRIC: Normal psychiatric evaluation. Limitations: no limitations Course Vital Signs 06/06/23 06/06/23 15:48 18:10 Temperature 97.6 F Pulse Rate 75 85 Respiratory 22 22 Rate Blood Pressure 95/83 107/73 O2 Sat by Pulse 95 92 L Oximetry Procedures - Orthopedic Splinting/Casting Injury #1 Side: left Lower Extremity Injury Location: short leg, ankle Medical Decision Making - Medical Decision Making Was pt. sent in by a medical professional or institution (, PA, PAI GOW DEALER, urgent care, hospital, or residential...) When possible be specific @ -No Did you speak to anyone other than the patient for history (EMS, parent, family, police, friend...)? What history was obtained from this source @ -EMS gave most of the history Did you review nursing and triage notes (agree or disagree)? Why? @ -I reviewed and agree with nursing and triage notes Were old charts reviewed (outside hosp., previous admission, EMS record, old EKG, old radiological studies, urgent care reports/EKG's, residential records)? Report findings @ -No old charts were reviewed Differential Diagnosis (chest pain, altered mental status, abdominal pain women, abdominal pain men, vaginal bleeding, weakness, fever, dyspnea, syncope, headache, dizziness, GI bleed, back pain, seizure, CVA, palpatations, mental health, musculoskeletal)? @ -Differential Musculoskeletal Muscular strain, contusion, ligament sprain, fracture, arthritis, septic arthritis, bursitis, cellulitis, muscle spasm, nerve compression, DVT, arterial occlusion, herpes zoster, electrolyte abnormality, tumor.... This is not meant to be in all inclusive list EKG interpreted by me (3pts min.). @ -As above X-rays interpreted by me (1pt min.). @ -X-ray of the ankle shows a distal tibia and distal fibula fracture with minimal displacement CT interpreted by me (1pt min.). @ -CT of the brain and C-spine showed no acute abnormality U/S interpreted by me (1pt. min.). @ -None done What testing was considered but not performed or refused? (CT, X-rays, U/S, labs)? Why? @ -None What meds were considered but not given or refused? Why? @ -None Did you discuss the management of the patient with other professionals (professionals i.e. , PA, PAI GOW DEALER, lab, RT, psych nurse, social studies teacher, final inspector and tester, teacher, chief science officer, dependency case manager)? Give summary @ -I spoke with Dr. FARMER and she agreed with putting a splint on the patient and having the patient follow-up for a possible boot Was smoking cessation discussed for >3mins.? @ -No Was critical care preformed (if so, how long)? @ -No Were there social determinants of health that impacted care today? How? (Homelessness, low income, unemployed, alcoholism, drug addiction, transportation, low edu. Level, literacy, decrease access to med. care, usp, rehab)? @ -No Was there de-escalation of care discussed even if they declined (Discuss DNR or withdrawal of care, Hospice)? DNR status @ -No What co-morbidities impacted this encounter? (DM, HTN, Smoking, COPD, CAD, Cancer, CVA, ARF, Chemo, Hep., AIDS, mental health diagnosis, sleep apnea, morbid obesity)? @ -None Was patient admitted / discharged? Hospital course, mention meds given and route, prescriptions, significant lab abnormalities, going to OR and other pertinent info. @ -X-ray showed an ankle fracture CT was normal. I put a splint on the patient and I spoke with Dr. Farmer she agreed that the patient could follow-up as an outpatient Undiagnosed new problem with uncertain prognosis? @ -No Drug Therapy requiring intensive monitoring for toxicity (Heparin, Nitro, Insulin, Cardizem)? @ -No Were any procedures done? @ -No Diagnosis/symptom? @ -Ankle fracture Acute, or Chronic, or Acute on Chronic? @ -Acute Uncomplicated (without systemic symptoms) or Complicated (systemic symptoms)? @ -Uncomplicated Side effects of treatment? @ -No Exacerbation, Progression, or Severe Exacerbation? @ -No Poses a threat to life or bodily function? How? (Chest pain, [place], [place], pneumonia, PE, COPD, DKA, ARF, appy, cholecystitis, CVA, Diverticulitis, Homicidal, Suicidal, threat to staff... and all critical care pts) @ -No Diagnosis/symptom? @ -Fall Acute, or Chronic, or Acute on Chronic? @ -Acute Uncomplicated (without systemic symptoms) or Complicated (systemic symptoms)? @ -Uncomplicated Side effects of treatment? @ -none Exacerbation, Progression, or Severe Exacerbation] @ -no Poses a threat to life or bodily function? @ -no Disposition Clinical Impression: Fall, Ankle fracture Disposition: HOME SELF-CARE Condition: Good Instructions (If sedation given, give patient instructions): Fall Prevention (ED) Additional Instructions: [facility] Is patient prescribed a controlled substance at d/c from ED?: No Referrals: Gale Farmer DO [Doctor of Osteopathic Medicine] - 1-2 days Time of Disposition: 19:36
--- NOTE | 2023-06-06 17:02 | XR ---
EXAMINATION TYPE: XR ankle complete LT DATE OF EXAM: 06/06/2023 4:43 PM CLINICAL INDICATION:Male, 77 years old with history of Trauma; [facility] COMPARISON: None TECHNIQUE: XR ankle complete LT; ankle is imaged in frontal, lateral and oblique projections. FINDINGS/IMPRESSION: * Posterior tibial plateau fracture with comminution. Mild displacement of the fragments. * Acute fracture through the distal fibula with minimal displacement. * Associated soft tissue edema secondary to findings above. * Calcaneal plantar spurring. * Multifocal degeneration changes throughout the joints of the foot.
--- NOTE | 2023-06-06 18:02 | CT ---
EXAMINATION TYPE: CT brain cspine wo con CT DLP: 1489.9 mGycm, Automated exposure control for dose reduction was used. DATE OF EXAM: 06/06/2023 5:38 PM COMPARISON: 01/21/2023. CLINICAL INDICATION:Male, 77 years old with history of Trauma; Weakness, unable to move left lower li mb. TECHNIQUE: Brain: Multiple axial CT images of the brain were obtained without IV contrast. Cspine: Axial CT images from the skull base to the inferior aspect of T2 we obtained without intraven ous contrast. Coronal and sagittal reformatted images were also reviewed. FINDINGS: Brain: Extra-axial spaces: No abnormal extra-axial fluid collections. Ventricular system: Dilatation in proportion to cerebral atrophy. Cerebral parenchyma: Remote injury to the left basal ganglia. Remote injury to the inferior left occi pital/parietal region. Cerebral atrophy. No acute intraparenchymal hemorrhage or mass effect. The gr ay-white junction is well differentiated. Scattered hypoattenuating areas are seen within the white m atter. Cerebellum: Unremarkable. Mass effect: No evidence of midline shift. Intracranial vasculature: Atherosclerotic calcifications of the intracranial vessels. Soft tissues: Normal. Calvarium/osseous structures: No depressed skull fracture. Paranasal sinuses and mastoid air cells: Mild scattered mucosal thickening and or secretions. There i s high density secretions within the left frontal sinus. Visualized orbits: Bilateral aphakia Cervical spine: Fracture: None. Osseous structures: Multilevel degenerative disc disease changes with endplate spurring and disc oste ophyte complex's. Large osteophytes anteriorly impress upon the esophagus. Calcification of the the n uchal ligament. Calcifications along the anterior longitudinal ligament with bridging syndesmophytes from C2 to C5. Vertebral alignment: Within normal limits. Spinal canal/Neural Foramina: Disc desiccation the posterior longitudinal from C4-C7 with at least mi ld spinal canal stenosis. Facet joint uncovertebral joint arthropathy scattered throughout the cervic al spine with varying degrees of neural foraminal stenosis. Findings worse at C3-C4 with moderate anisha ateral and moderate to severe right C4-C5, moderate to severe bilateral C5-C6. Neck soft tissues: Prevertebral soft tissues are within normal limits. Other: The airway is patent. The lung apices are clear. IMPRESSION: 1. No acute intracranial process. 2. Nonspecific white matter changes, likely secondary to chronic small vessel ischemic disease. 3. Remote injury to the left inferior parietal/occipital region and left basal ganglia. 4. Generalized cerebral atrophy and proportional dilation of the ventricular system. 5. No evidence of cervical spine fracture. 6. Moderate to severe multilevel degenerative disc disease. 7. Large osteophytes impresses upon the esophagus with bridging syndesmophytes anteriorly suggestive of diffuse idiopathic skeletal hyperostosis. 8. Moderate paranasal sinus disease most pronounced with thin secretions within the left frontal sin us possibly representing pernicious contents versus fungal colonization.
[2023-06-06 20:26] VITALS: BP 130/89; PULSE 75; RESP 18; TEMP 98.3
== END 2023-06-06 20:23 | disposition home or self-care (01) ==
LOC: EC 15:46
DX: S82.892A Other fracture of left lower leg, initial encounter for closed fracture (principal); E78.5 Hyperlipidemia, unspecified; Z79.01 Long term (current) use of anticoagulants; Z79.899 Other long term (current) drug therapy; W07.XXXA Fall from chair, initial encounter
CPT/HCPCS: 29515; 70450; 72125; 99285

== ENCOUNTER 2023-08-18 13:50 | Inpatient (IN) | payer MEDICARE, OTHER ==
--- NOTE | 2023-08-18 14:21 | ED ---
Skin/Abscess/FB HPI - General Chief complaint: Skin/Abscess/Foreign Body Stated complaint: Skin Infection Time Seen by Provider: 08/18/23 14:05 Source: patient, EMS, RN notes reviewed Mode of arrival: EMS Limitations: altered mental status - History of Present Illness Initial comments: This is a 77-year-old male who presents to the emergency department for cellulitis. Patient lives at [facility], and they called EMS for concerns of cellulitis on his inner thighs, lower back, and buttocks. However, patient is bedbound and his states that he frequently has red areas there, however she is not sure of the current severity of it. They did give him 1 g of Rocephin at [facility]. Patient has pain "everywhere", however patient does have dementia and is a poor historian. He is alert and oriented x 2 which is his baseline. - Related Data Home Medications Medication Instructions Recorded Confirmed Cholecalciferol [Vitamin D3 (25 25 mcg PO DAILY@0600 01/17/22 08/18/23 Mcg = 1000 Iu)] PARoxetine [Paxil] 10 mg PO HS@199901/17/22 08/18/23 Primidone [Mysoline] 50 mg PO HS@199901/17/22 08/18/23 Tamsulosin [Flomax] 0.4 mg PO HS@199901/17/22 08/18/23 polyethylene glycoL 3350 [Miralax] 17 gm PO DAILY 01/17/22 08/18/23 Atorvastatin [Lipitor] 40 mg PO HS@199903/01/22 08/18/23 Nitroglycerin Sl Tabs [Nitrostat] 0.4 mg SL Q5M PRN 03/01/22 08/18/23 Apixaban [Eliquis] 5 mg PO BID 08/04/22 08/18/23 Multivitamins, Thera [Multivitamin 1 tab PO DAILY 08/04/22 08/18/23 (formulary)] Acetaminophen Tab [Tylenol] 1,000 mg PO BID PRN 09/07/22 08/18/23 Docusate [Colace] 100 mg PO HS@199909/07/22 08/18/23 Ranolazine [Ranexa] 500 mg PO BID@0700,1900 09/07/22 08/18/23 Bumetanide [BUMEX] 2 mg PO BID 01/06/23 08/18/23 Menthol [Biofreeze] 1 applic TOPICAL Q8H PRN 01/06/23 08/18/23 Menthol [Biofreeze] 1 applic TOPICAL QID@05,,,01/06/23 08/18/23 Metoprolol Tartrate [Lopressor] 25 mg PO BID@0700,1900 01/06/23 08/18/23 glipiZIDE [Glucotrol] 5 mg PO HS 01/21/23 08/18/23 glipiZIDE [Glucotrol] 10 mg PO DAILY 01/21/23 08/18/23 Lansoprazole 15 mg PO DAILY 06/06/23 08/18/23 Latanoprost [Latanoprost 0.005%] 1 drop LEFT EYE HS 06/06/23 08/18/23 Potassium Chloride ER [K-Dur 10] 10 meq PO BID 06/06/23 08/18/23 Doxycycline Hyclate 100 mg PO BID 08/18/23 08/18/23 Ibuprofen [Motrin Ib] 400 mg PO Q6H PRN 08/18/23 08/18/23 Naloxone HCl 0.4 mg SQ ONCE PRN 08/18/23 08/18/23 Naloxone HCl [Narcan] 4 mg NASAL DIRECTED PRN 08/18/23 08/18/23 cefTRIAXone [Rocephin] 1 gm IM ONCE 08/18/23 08/18/23 Previous Rx's Medication Instructions Recorded Isosorbide Mononitrate ER [Imdur] 30 mg PO DAILY #30 tab 08/12/22 Baclofen 10 mg PO TID@0700,1300,1900 3 Days 01/25/23 #9 tab Gabapentin [Neurontin] 400 mg PO TID@0700,1300,1900 3 01/25/23 Days #9 cap HYDROcodone/APAP 5-325MG [[place] 1 tab PO QID@05,,, 3 Days 01/25/23 5-325] #12 tab Allergies Allergy/AdvReac Type Severity Reaction Status Date / Time No Known Allergies Allergy Verified 08/18/23 16:19 Review of Systems ROS Statement: Those systems with pertinent positive or pertinent negative responses have been documented in the HPI. ROS Other: All systems not noted in ROS Statement are negative. Past Medical History Past Medical History: Chest Pain / Angina, CVA/TIA, Hyperlipidemia Additional Past Medical History / Comment(s): STROKE IN 2009 History of Any Multi-Drug Resistant Organisms: None Reported Past Surgical History: Appendectomy, Orthopedic Surgery Past Anesthesia/Blood Transfusion Reactions: No Reported Reaction Past Psychological History: No Psychological Hx Reported, Depression Smoking Status: Never smoker Past Alcohol Use History: None Reported Past Drug Use History: None Reported General Exam Limitations: altered mental status General appearance: alert, in no apparent distress Head exam: Present: atraumatic, normocephalic, normal inspection Respiratory exam: Present: normal lung sounds bilaterally. Absent: respiratory distress, wheezes, rales, rhonchi, stridor Cardiovascular Exam: Present: regular rate, normal rhythm, normal heart sounds. Absent: systolic murmur, diastolic murmur, rubs, gallop, clicks Extremities exam: Present: other (Erythema and induration to the medial bilateral thighs extending to the buttocks.) Neurological exam: Present: alert Psychiatric exam: Present: normal affect, normal mood Course Vital Signs 08/18/23 08/18/23 13:54 15:00 Temperature 98.5 F Pulse Rate 83 94 Respiratory 20 18 Rate Blood Pressure 105/61 106/64 O2 Sat by Pulse 97 96 Oximetry Medical Decision Making - Medical Decision Making This is a 77 year old male who presents to the emergency department for cellulitis. Was pt. sent in by a medical professional or institution? @ -No Did you speak to anyone other than the patient for history? @ -Staff at [facility], [facility], and the patient's provided the majority of the history. Did you review nursing and triage notes? @ -Yes, and I agree, it is accurate with regards to the patient's symptoms. Were old charts reviewed? @ -No Differential Diagnosis? @ -Differential Cellulitis: Cellulitis, Abscess, contact dermatitis, eczema, candidiasis, this is not meant to be an all-inclusive list. EKG interpreted by me (3pts min.)? @ -EKG interpreted by me demonstrating the following: Atrial fibrillation. Ventricular rate 94 bpm, QRS duration 94 ms, QTc 361 ms. X-rays interpreted by me (1pt min.)? @ -Not obtained CT interpreted by me (1pt min.)? @ -Not obtained U/S interpreted by me (1pt. min.)? @ -Not obtained What testing was considered but not performed? (CT, X-rays, U/S, labs)? Why? @ -None What meds were considered but not given? Why? @ -None Did you discuss the management of the patient with other professionals? @ -Yes, Dr. Costello, who accepts the patient for admission. Did you reconcile home meds? @ -Yes Was smoking cessation discussed for >3mins.? @ -No Was critical care preformed (if so, how long)? @ -No Were there social determinants of health that impacted care today? How? (Homelessness, low income, unemployed, alcoholism, drug addiction, transportation, low edu. Level, literacy, decrease access to med. care, longterm, rehab)? @ -No Was there de-escalation of care discussed even if they declined? (Discuss DNR or withdrawal of care, Hospice)? @ -No What co-morbidities impacted this encounter? (DM, HTN, Smoking, COPD, CAD, Cancer, CVA, Hep., AIDS, mental health diagnosis, sleep apnea, morbid obesity)? @ -CHF, Hx of CVA, HTN, A-fib, dementia Was patient admitted / discharged? @ -Admitted. Lab work demonstrates leukocytosis with a white blood cell count of 26.5. CRP elevated at 43.6 and lactic acid elevated 2.5. Physical examination consistent with fairly extensive cellulitis to the bilateral thighs and buttocks. Blood cultures were obtained and the patient was started on cefepime and vancomycin. Patient admitted to medicine for cellulitis. Consult placed for infectious disease. Urinalysis ordered as well to look for other potential source of infection, this was pending at the time of admission. Undiagnosed new problem with uncertain prognosis? @ -None Drug Therapy requiring intensive monitoring for toxicity (Heparin, Nitro, Insulin, Cardizem)? @ -None Were any procedures done? @ -None Diagnosis/symptom? @ -Cellulitis Acute, or Chronic, or Acute on Chronic? @ -Acute Uncomplicated (without systemic symptoms) or Complicated (systemic symptoms)? @ -Complicated Side effects of treatment? @ -None Exacerbation, Progression, or Severe Exacerbation] @ -Not applicable Poses a threat to life or bodily function? @ -Yes This case was discussed in detail with the attending ED physician, Dr. Luna. Presentation, findings, and treatment plan discussed in detail as well. - Lab Data Result diagrams: 08/18/23 14:29 08/18/23 14:29 Lab Results 08/18/23 08/18/23 08/18/23 Range/Units 14:29 14:29 14:29 WBC 26.5 H (3.8-10.6) k/uL RBC 3.98 L (4.30-5.90) m/uL Hgb 12.5 L (13.0-17.5) gm/dL Hct 37.3 L (39.0-53.0) % MCV 93.7 (80.0-100.0) fL MCH 31.5 (25.0-35.0) pg MCHC 33.6 (31.0-37.0) g/dL RDW 15.3 (11.5-15.5) % Plt Count 213 (150-450) k/uL MPV 9.6 Neutrophils % 93 % Lymphocytes % 4 % Monocytes % 1 % Eosinophils % 1 % Basophils % 0 % Neutrophils # 24.8 H (1.3-7.7) k/uL Lymphocytes # 1.0 (1.0-4.8) k/uL Monocytes # 0.3 (0-1.0) k/uL Eosinophils # 0.2 (0-0.7) k/uL Basophils # 0.0 (0-0.2) k/uL PT (10.0-12.5) sec INR (<1.2) APTT (22.0-30.0) sec Sodium 140 (137-145) mmol/L Potassium 4.1 (3.5-5.1) mmol/L Chloride 99 (98-107) mmol/L Carbon Dioxide 29 (22-30) mmol/L Anion Gap 12 mmol/L BUN 41 H (9-20) mg/dL Creatinine 2.33 H (0.66-1.25) mg/dL Est GFR (CKD-EPI)AfAm 30 (>60 ml/min/1.73 sqM) Est GFR (CKD-EPI)NonAf 26 (>60 ml/min/1.73 sqM) Glucose 61 L (74-99) mg/dL Lactic Ac Sepsis Rflx Plasma Lactic Acid Bertram 2.5 H* (0.7-2.0) mmol/L Calcium 8.6 (8.4-10.2) mg/dL Total Bilirubin 0.8 (0.2-1.3) mg/dL AST 30 (17-59) U/L ALT 18 (4-49) U/L Alkaline Phosphatase 95 (38-126) U/L C-Reactive Protein 43.6 H (<1.0) mg/dL Total Protein 7.7 (6.3-8.2) g/dL Albumin 3.3 L (3.5-5.0) g/dL 08/18/23 08/18/23 Range/Units 15:11 15:57 WBC (3.8-10.6) k/uL RBC (4.30-5.90) m/uL Hgb (13.0-17.5) gm/dL Hct (39.0-53.0) % MCV (80.0-100.0) fL MCH (25.0-35.0) pg MCHC (31.0-37.0) g/dL RDW (11.5-15.5) % Plt Count (150-450) k/uL MPV Neutrophils % % Lymphocytes % % Monocytes % % Eosinophils % % Basophils % % Neutrophils # (1.3-7.7) k/uL Lymphocytes # (1.0-4.8) k/uL Monocytes # (0-1.0) k/uL Eosinophils # (0-0.7) k/uL Basophils # (0-0.2) k/uL PT 13.5 H (10.0-12.5) sec INR 1.3 H (<1.2) APTT 29.2 (22.0-30.0) sec Sodium (137-145) mmol/L Potassium (3.5-5.1) mmol/L Chloride (98-107) mmol/L Carbon Dioxide (22-30) mmol/L Anion Gap mmol/L BUN (9-20) mg/dL Creatinine (0.66-1.25) mg/dL Est GFR (CKD-EPI)AfAm (>60 ml/min/1.73 sqM) Est GFR (CKD-EPI)NonAf (>60 ml/min/1.73 sqM) Glucose (74-99) mg/dL Lactic Ac Sepsis Rflx Y Plasma Lactic Acid Bertram (0.7-2.0) mmol/L Calcium (8.4-10.2) mg/dL Total Bilirubin (0.2-1.3) mg/dL AST (17-59) U/L ALT (4-49) U/L Alkaline Phosphatase (38-126) U/L C-Reactive Protein (<1.0) mg/dL Total Protein (6.3-8.2) g/dL Albumin (3.5-5.0) g/dL Disposition Clinical Impression: Cellulitis Disposition: ADMITTED IP TO THIS [facility] Time of Disposition: 16:36
[2023-08-18 14:54] LABS: Basophils % (A) 0 %; Eosinophils # (A) 0.2 k/uL (0-0.7); Eosinophils % (A) 1 %; HCT 37.3 % (39.0-53.0); HGB 12.5 gm/dL (13.0-17.5); Lymphocytes % (A) 4 %; MCH 31.5 pg (25.0-35.0); MCHC 33.6 g/dL (31.0-37.0); MCV 93.7 fL (80.0-100.0); Mean Platelet Volume 9.6; Monocytes # (A) 0.3 k/uL (0-1.0); Monocytes % (A) 1 %; Neutrophils # (A) 24.8 k/uL (1.3-7.7); Neutrophils % (A) 93 %; Platelet Count 213 k/uL (150-450); RBC 3.98 m/uL (4.30-5.90); RDW 15.3 % (11.5-15.5); WBC 26.5 k/uL (3.8-10.6)
[2023-08-18] MEDS ORDERED: VANCOMYCIN IV PER PHARMACY 1 EACH MISC MISCELLANE PRN (14:58)
[2023-08-18] MEDS: SODIUM CHLORIDE 0.9% 500 ML 500 ML IV STA (15:29)
[2023-08-18] MEDS: SODIUM CHLORIDE 0.9% 1,000 ML IV STA (15:29)
[2023-08-18 15:39] LABS: ALT 18 U/L (4-49); AST 30 U/L (17-59); African American GFR (CKD) 30 (>60 ml/min/1.73 sqM); Albumin 3.3 g/dL (3.5-5.0); Alkaline Phosphatase 95 U/L (38-126); Anion Gap 12 mmol/L; Blood Urea Nitrogen 41 mg/dL (9-20); Calcium 8.6 mg/dL (8.4-10.2); Carbon Dioxide 29 mmol/L (22-30); Chloride 99 mmol/L (98-107); Glucose 61 mg/dL (74-99); Non-African American GFR(CKD) 26 (>60 ml/min/1.73 sqM); Potassium 4.1 mmol/L (3.5-5.1); Sodium 140 mmol/L (137-145); Total Bilirubin 0.8 mg/dL (0.2-1.3); Total Protein 7.7 g/dL (6.3-8.2)
[2023-08-18] MEDS: CEFEPIME 1 GM in SODIUM CHLORIDE 0.9% 50 ML IVPB STA (15:42)
[2023-08-18] MEDS: VANCOMYCIN 2,000 MG in SODIUM CHLORIDE 0.9% 500 ML 500 ML IVPB ONE (15:49)
[2023-08-18 16:20] LABS: C Reactive Protein 43.6 mg/dL (<1.0)
[2023-08-18 16:20] LABS: INR 1.3 (<1.2); Partial Thromboplastin Time 29.2 sec (22.0-30.0); Prothrombin Time 13.5 sec (10.0-12.5)
[2023-08-18] MEDS ORDERED: ONDANSETRON 4 MG/2 ML VIAL IVP PRN (16:36)
[2023-08-18] MEDS ORDERED: HYDROcodone/APAP 5-325MG 1 EACH TAB PO PRN (16:36)
[2023-08-18] MEDS ORDERED: NALOXONE 0.4 MG/ML 1 ML VIAL IV PRN (16:36)
[2023-08-18] MEDS ORDERED: NON FORMULARY DRUG (Naloxone Hcl [Narcan] 4 MG Each) NASAL PRN (16:59)
[2023-08-18] MEDS ORDERED: NITROGLYCERIN SL TABS 0.4 MG TAB SUBLINGUAL PRN (16:59)
[2023-08-18] MEDS ORDERED: NALOXONE 0.4 MG/ML 1 ML VIAL SQ PRN (16:59)
[2023-08-18] MEDS ORDERED: MENTHOL-ZINC OXIDE OINT 113 GM TUBE TOPICAL PRN (16:59)
[2023-08-18] MEDS ORDERED: ACETAMINOPHEN TAB 500 MG TAB PO PRN (16:59)
[2023-08-18] MEDS: HYDROcodone/APAP 5-325MG 1 EACH TAB PO SCH (18:03)
[2023-08-18] MEDS: GABAPENTIN 400 MG CAP PO SCH (21:06)
[2023-08-18] MEDS: BACLOFEN 10 MG TAB PO SCH (21:06)
[2023-08-18] MEDS: APIXABAN 5 MG TAB PO SCH (21:07)
[2023-08-18] MEDS: RANOLAZINE 500 MG TAB.ER.12H PO SCH (21:07)
[2023-08-18] MEDS: PRIMIDONE 50 MG TAB PO SCH (21:07)
[2023-08-18] MEDS: DOCUSATE 100 MG CAP PO SCH (21:07)
[2023-08-18] MEDS: METOPROLOL TARTRATE 25 MG TAB PO SCH (21:07)
[2023-08-18] MEDS: PARoxetine 10 MG TAB PO SCH (21:07)
[2023-08-18] MEDS: TAMSULOSIN 0.4 MG CAP.ER.24H PO SCH (21:07)
[2023-08-18] MEDS: BUMETANIDE 1 MG TAB PO SCH (21:07)
[2023-08-18] MEDS: ATORVASTATIN 40 MG TAB PO SCH (21:07)
[2023-08-18] MEDS: POTASSIUM CHLORIDE ER 10 MEQ TAB.ER.PRT PO SCH (21:08)
[2023-08-18] MEDS: glipiZIDE 5 MG TAB PO SCH (21:08)
[2023-08-18] MEDS ORDERED: MORPHINE SULFATE 4 MG/ML SYRINGE IVP PRN (21:48)
[2023-08-18] MEDS: LATANOPROST 0.005% OPHTH DROPS 2.5 ML BTL LEFT EYE SCH (22:50)
[2023-08-19] MEDS ORDERED: ZINC OXIDE PASTE (Z-GUARD) 1 APPLIC TOPICAL PRN (00:37)
[2023-08-19] MEDS: CEFEPIME 1 GM in SODIUM CHLORIDE 0.9% 50 ML IVPB SCH (00:58)
[2023-08-19] MEDS: MENTHOL-ZINC OXIDE OINT 113 GM TUBE TOPICAL SCH (00:59)
--- NOTE | 2023-08-19 01:26 | XR ---
EXAMINATION TYPE: XR chest 1V portable DATE OF EXAM: 08/18/2023 CLINICAL HISTORY: Aspiration TECHNIQUE: Single frontal view of the chest is obtained. COMPARISON: Chest x-ray January 21, 2023 FINDINGS: Low lung volumes are redemonstrated. There is no suspicious new focal air space opacity, pl eural effusion, or pneumothorax seen. Mild cardiomegaly with ectatic thoracic aorta is again seen. De generative change right glenohumeral joint redemonstrated. IMPRESSION: Low lung volumes and mild cardiomegaly redemonstrated. No suspicious new acute pulmonary infiltrate clearly seen.
[2023-08-19 05:23] LABS: Glucose,Whole Blood 45 mg/dL (70-110)
[2023-08-19 05:26] LABS: Glucose,Whole Blood 41 mg/dL (70-110)
[2023-08-19 05:29] LABS: Appearance,Urine Clear (Clear); Bacteria,Urine Rare /hpf; Bilirubin,Urine Negative (Negative); Blood,Urine Negative (Negative); Color,Urine Yellow; Glucose,Urine (UA) Negative (Negative); Hyaline Casts,Urine 3 /lpf (0-2); Ketones,Urine Negative (Negative); Leukocyte Esterase,Urine Negative (Negative); Mucus,Urine Rare /hpf; Nitrite,Urine Negative (Negative); PH, Urine 5.5 (5.0-8.0); Protein,Urine 1+ (Negative); RBC,Urine 1 /hpf (0-5); Specific Gravity,Urine 1.015 (1.001-1.035); Urobilinogen,Urine <2.0 mg/dL (<2.0); WBC,Urine <1 /hpf (0-5)
[2023-08-19] MEDS: DEXTROSE 50% SYRINGE 50 ML IVP ONE ×3 (05:35→10:55)
[2023-08-19 06:06] LABS: Glucose,Whole Blood 106 mg/dL (70-110)
[2023-08-19] MEDS: CHOLECALCIFEROL 25 MCG (1000 IU) TABLET PO SCH (06:22)
[2023-08-19] MEDS: VANCOMYCIN 2,000 MG in SODIUM CHLORIDE 0.9% 500 ML 500 ML IVPB ONE (06:41)
[2023-08-19 06:42] LABS: Glucose,Whole Blood 90 mg/dL (70-110)
[2023-08-19] MEDS: PANTOPRAZOLE 40 MG TABLET PO SCH (06:45)
[2023-08-19 07:39] LABS: African American GFR (CKD) 41 (>60 ml/min/1.73 sqM); Non-African American GFR(CKD) 36 (>60 ml/min/1.73 sqM)
[2023-08-19 09:14] LABS: Glucose,Whole Blood 58 mg/dL (70-110)
[2023-08-19 09:43] LABS: Glucose,Whole Blood 76 mg/dL (70-110)
[2023-08-19 10:07] LABS: Glucose,Whole Blood 44 mg/dL (70-110)
[2023-08-19 10:15] LABS: Glucose,Whole Blood 135 mg/dL (70-110)
[2023-08-19 10:28] LABS: Glucose,Whole Blood 51 mg/dL (70-110)
[2023-08-19 10:37] LABS: Glucose,Whole Blood 116 mg/dL (70-110)
[2023-08-19] MEDS ORDERED: DEXTROSE 50% SYRINGE 50 ML IVP PRN ×2 (10:46)
[2023-08-19] MEDS: polyethylene glycoL 3350 17 GM POWD.PACK PO SCH (10:54)
[2023-08-19 10:58] LABS: Glucose,Whole Blood 94 mg/dL (70-110)
[2023-08-19] MEDS: DEXTROSE 5% IN WATER 1,000 ML IV ONE (11:01)
[2023-08-19] MEDS: MULTIVITAMINS, THERA 1 EACH TAB PO SCH (11:01)
[2023-08-19] MEDS: INSULIN ASPART (NovoLOG) 100 UNIT/ML VIAL SQ SCH (11:10)
[2023-08-19] MEDS: ISOSORBIDE MONONITRATE ER 30 MG TAB.ER.24H PO SCH (11:10)
[2023-08-19] MEDS: glipiZIDE 10 MG TAB PO SCH (11:18)
[2023-08-19 11:54] LABS: Glucose,Whole Blood 121 mg/dL (70-110)
--- NOTE | 2023-08-19 14:28 | US ---
EXAMINATION TYPE: US kidneys/renal and bladder DATE OF EXAM: 08/19/2023 COMPARISON: 01/22/2023. CLINICAL INDICATION: Male, 77 years old with history of Gaston; Gaston, no symptoms EXAM MEASUREMENTS: Right Kidney: 11.3 x 4.6 x 5.6 cm Left Kidney: 11.6 x 3.7 x 5.8 cm Right Kidney: No hydronephrosis or masses seen Left Kidney: No hydronephrosis or masses seen Bladder: thomson There is no evidence for hydronephrosis at this point in time. No nephrolithiasis is seen. No rashawn s are identified. The urinary bladder is anechoic. Bilateral ureteral jets are seen. IMPRESSION: 1. No evidence for obstructive uropathy. 2. Thomson catheter in place.
[2023-08-19 14:47] LABS: Basophils % (A) 0 %; Eosinophils % (A) 0 %; HCT 34.8 % (39.0-53.0); HGB 10.9 gm/dL (13.0-17.5); Hypochromasia Slight; Lymphocytes # (A) 0.7 k/uL (1.0-4.8); Lymphocytes % (A) 4 %; MCH 30.3 pg (25.0-35.0); MCHC 31.4 g/dL (31.0-37.0); MCV 96.5 fL (80.0-100.0); Mean Platelet Volume 10.1; Monocytes # (A) 0.3 k/uL (0-1.0); Monocytes % (A) 2 %; Neutrophils # (A) 14.5 k/uL (1.3-7.7); Neutrophils % (A) 92 %; Platelet Count 167 k/uL (150-450); RDW 15.3 % (11.5-15.5); WBC 15.7 k/uL (3.8-10.6)
--- NOTE | 2023-08-19 14:49 | P.HPIM ---
History of Present Illness H&P Date: 08/19/23 History of present illness; patient 77-year-old gentleman with past medical his significant for dementia, CHF, diabetes mellitus, hypertension, presented to the ER for evaluation for redness of his thighs. [facility], nursing staff are concerned that the patient has increased redness of his thighs and back. Patient normally bedbound does not ambulate. There was no complaint of fever or chills. There is no complaint of abdominal pain. No complaint of increased urine frequency hesitancy urgency. There was concern the patient had cellulitis and patient seen 1 g of [facility]cephin in the [facility] and was sent to the ER for further evaluation Initial lab work done in the ER showed WBC 26.5, hemoglobin 12.5, platelet count 213 sodium 140, potassium 4.1, BUN 41, creatinine 2.33, plasma lactate 2.5 EKG done in the ER showed heart rate of 94, irregular in rhythm, no ST segment elevation or depression seen, no T-wave inversions seen. Chest x-ray done in the ER low lung volumes and mild cardiomegaly, no acute pulm infiltrate seen Patient admitted to internal medicine service REVIEW OF SYSTEMS: CONSTITUTIONAL: No fever, no malaise, no fatigue. HEENT: No recent visual problems or hearing problems. Denied any sore throat. CARDIOVASCULAR: No chest pain, orthopnea, PND, no palpitations, no syncope. PULMONARY: No shortness of breath, no cough, no hemoptysis. GASTROINTESTINAL: No diarrhea, no nausea, no vomiting, no abdominal pain. NEUROLOGICAL: No headaches, no weakness, no numbness. HEMATOLOGICAL: Denies any bleeding or petechiae. GENITOURINARY: Denies any burning micturition, frequency, or urgency. MUSCULOSKELETAL/RHEUMATOLOGICAL: Denies any joint pain, swelling, or any muscle pain. ENDOCRINE: Denies any polyuria or polydipsia. The rest of the 14-point review of systems is negative. PHYSICAL EXAMINATION: GENERAL: The patient is alert , not in any acute distress. Chronically ill looking HEENT: Pupils are round and equally reacting to light. EOMI. No scleral icterus. No conjunctival pallor. Normocephalic, atraumatic. No pharyngeal erythema. No thyromegaly. CARDIOVASCULAR: S1 and S2 present. No murmurs, rubs, or gallops. PULMONARY: Chest is clear to auscultation, no wheezing or crackles. ABDOMEN: Soft, nontender, nondistended, normoactive bowel sounds. No palpable organomegaly. MUSCULOSKELETAL: No joint swelling or deformity. EXTREMITIES: No cyanosis, clubbing, or pedal edema. NEUROLOGICAL: Baseline dementia, residual right-sided weakness SKIN: No rashes. Assessment and plan Cellulitis of left thigh. 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 Continue same treatment. Continue with symptomatic treatment. Resume home medication. Monitor labs and vitals. DVT and GI prophylaxis. Further recommendations as per clinical course of the patient Dictation was produced using aroundtheway dictation software. please excuse any grammatical, word or spelling errors. Past Medical History Past Medical History: Atrial Fibrillation, Chest Pain / Angina, Heart Failure, CVA/TIA, Diabetes Mellitus, GERD/Reflux, Hyperlipidemia, Memory Impairment, Prostate Disorder, Renal Disease, Sleep Apnea/CPAP/BIPAP Additional Past Medical History / Comment(s): 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, Type 2 Diabetes, BPH, Stage 3 chronic kidney disease, CHF, Anemia, insomnia, short term memory History of Any Multi-Drug Resistant Organisms: None Reported Past Surgical History: Appendectomy, Orthopedic Surgery Past Anesthesia/Blood Transfusion Reactions: No Reported Reaction Past Psychological History: No Psychological Hx Reported, Depression Smoking Status: Never smoker Past Alcohol Use History: None Reported Past Drug Use History: None Reported Medications and Allergies Home Medications Medication Instructions Recorded Confirmed Type Cholecalciferol [Vitamin D3 (25 25 mcg PO DAILY@0600 01/17/22 08/18/23 History Mcg = 1000 Iu)] PARoxetine [Paxil] 10 mg PO HS@199901/17/22 08/18/23 History Primidone [Mysoline] 50 mg PO HS@199901/17/22 08/18/23 History Tamsulosin [Flomax] 0.4 mg PO HS@199901/17/22 08/18/23 History polyethylene glycoL 3350 [Miralax] 17 gm PO DAILY 01/17/22 08/18/23 History Atorvastatin [Lipitor] 40 mg PO HS@199903/01/22 08/18/23 History Nitroglycerin Sl Tabs [Nitrostat] 0.4 mg SL Q5M PRN 03/01/22 08/18/23 History Apixaban [Eliquis] 5 mg PO BID 08/04/22 08/18/23 History Multivitamins, Thera [Multivitamin 1 tab PO DAILY 08/04/22 08/18/23 History (formulary)] Isosorbide Mononitrate ER [Imdur] 30 mg PO DAILY #30 tab 08/12/22 08/18/23 Rx Acetaminophen Tab [Tylenol] 1,000 mg PO BID PRN 09/07/22 08/18/23 History Docusate [Colace] 100 mg PO HS@199909/07/22 08/18/23 History Ranolazine [Ranexa] 500 mg PO BID@0700,1900 09/07/22 08/18/23 History Bumetanide [BUMEX] 2 mg PO BID 01/06/23 08/18/23 History Menthol [Biofreeze] 1 applic TOPICAL Q8H PRN 01/06/23 08/18/23 History Menthol [Biofreeze] 1 applic TOPICAL QID@05,11,,01/06/23 08/18/23 History Metoprolol Tartrate [Lopressor] 25 mg PO BID@0700,1900 01/06/23 08/18/23 History glipiZIDE [Glucotrol] 5 mg PO HS 01/21/23 08/18/23 History glipiZIDE [Glucotrol] 10 mg PO DAILY 01/21/23 08/18/23 History Baclofen 10 mg PO TID@0700,1300,1900 3 Days 01/25/23 08/18/23 Rx #9 tab Gabapentin [Neurontin] 400 mg PO TID@0700,1300,1900 3 01/25/23 08/18/23 Rx Days #9 cap HYDROcodone/APAP 5-325MG [[place] 1 tab PO QID@05,11,17,23 3 Days 01/25/23 08/18/23 Rx 5-325] #12 tab Lansoprazole 15 mg PO DAILY 06/06/23 08/18/23 History Latanoprost [Latanoprost 0.005%] 1 drop LEFT EYE HS 06/06/23 08/18/23 History Potassium Chloride ER [K-Dur 10] 10 meq PO BID 06/06/23 08/18/23 History Doxycycline Hyclate 100 mg PO BID 08/18/23 08/18/23 History Ibuprofen [Motrin Ib] 400 mg PO Q6H PRN 08/18/23 08/18/23 History Naloxone HCl 0.4 mg SQ ONCE PRN 08/18/23 08/18/23 History Naloxone HCl [Narcan] 4 mg NASAL DIRECTED PRN 08/18/23 08/18/23 History cefTRIAXone [Rocephin] 1 gm IM ONCE 08/18/23 08/18/23 History Allergies Allergy/AdvReac Type Severity Reaction Status Date / Time No Known Allergies Allergy Verified 08/18/23 16:19 Physical Exam Vitals: Vital Signs Temp Pulse Pulse Pulse Resp BP BP 08/19/23 08:16 08/19/23 07:22 97.4 F L 86 19 08/19/23 02:43 97.9 F 78 20 108/65 08/18/23 21:38 98.3 F 98 18 100/63 08/18/23 21:29 98.3 F 15 08/18/23 18:00 92 18 100/66 08/18/23 17:29 97 18 118/63 08/18/23 15:00 94 18 106/64 08/18/23 13:54 98.5 F 83 20 105/61 BP Pulse Ox 08/19/23 08:16 97 08/19/23 07:22 126/73 97 08/19/23 02:43 97 08/18/23 21:38 98 08/18/23 21:29 08/18/23 18:00 98 08/18/23 17:29 95 08/18/23 15:00 96 08/18/23 13:54 97 Intake and Output 08/18/23 08/19/23 08/19/23 22:59 06:59 14:59 Output Total 800 Balance -800 Output: Urine 800 Straight 800 Other: Voiding Method Diaper External Catheter # Voids 1 2 Weight 124.738 kg Results CBC & Chem 7: 08/19/23 14:00 08/19/23 07:13 Labs: Abnormal Lab Results - Last 24 Hours (Table) 08/18/23 08/18/23 08/18/23 Range/Units 14:29 14:29 14:29 WBC 26.5 H (3.8-10.6) k/uL RBC 3.98 L (4.30-5.90) m/uL Hgb 12.5 L (13.0-17.5) gm/dL Hct 37.3 L (39.0-53.0) % Neutrophils # 24.8 H (1.3-7.7) k/uL PT (10.0-12.5) sec INR (<1.2) BUN 41 H (9-20) mg/dL Creatinine 2.33 H (0.66-1.25) mg/dL Glucose 61 L (74-99) mg/dL POC Glucose (mg/dL) (70-110) mg/dL Plasma Lactic Acid Bertram 2.5 H* (0.7-2.0) mmol/L C-Reactive Protein 43.6 H (<1.0) mg/dL Albumin 3.3 L (3.5-5.0) g/dL Urine Protein (Negative) Urine Bacteria (None) /hpf Hyaline Casts (0-2) /lpf Urine Mucus (None) /hpf 08/18/23 08/18/23 08/19/23 Range/Units 15:57 17:54 04:50 WBC (3.8-10.6) k/uL RBC (4.30-5.90) m/uL Hgb (13.0-17.5) gm/dL Hct (39.0-53.0) % Neutrophils # (1.3-7.7) k/uL PT 13.5 H (10.0-12.5) sec INR 1.3 H (<1.2) BUN (9-20) mg/dL Creatinine (0.66-1.25) mg/dL Glucose (74-99) mg/dL POC Glucose (mg/dL) (70-110) mg/dL Plasma Lactic Acid Bertram 2.2 H* (0.7-2.0) mmol/L C-Reactive Protein (<1.0) mg/dL Albumin (3.5-5.0) g/dL Urine Protein 1+ H (Negative) Urine Bacteria Rare H (None) /hpf Hyaline Casts 3 H (0-2) /lpf Urine Mucus Rare H (None) /hpf 08/19/23 08/19/23 08/19/23 Range/Units 05:21 05:25 07:13 WBC (3.8-10.6) k/uL RBC (4.30-5.90) m/uL Hgb (13.0-17.5) gm/dL Hct (39.0-53.0) % Neutrophils # (1.3-7.7) k/uL PT (10.0-12.5) sec INR (<1.2) BUN (9-20) mg/dL Creatinine 1.78 H (0.66-1.25) mg/dL Glucose (74-99) mg/dL POC Glucose (mg/dL) 45 L 41 L (70-110) mg/dL Plasma Lactic Acid Bertram (0.7-2.0) mmol/L C-Reactive Protein (<1.0) mg/dL Albumin (3.5-5.0) g/dL Urine Protein (Negative) Urine Bacteria (None) /hpf Hyaline Casts (0-2) /lpf Urine Mucus (None) /hpf 08/19/23 08/19/23 08/19/23 Range/Units 09:12 10:01 10:13 WBC (3.8-10.6) k/uL RBC (4.30-5.90) m/uL Hgb (13.0-17.5) gm/dL Hct (39.0-53.0) % Neutrophils # (1.3-7.7) k/uL PT (10.0-12.5) sec INR (<1.2) BUN (9-20) mg/dL Creatinine (0.66-1.25) mg/dL Glucose (74-99) mg/dL POC Glucose (mg/dL) 58 L 44 L 135 H (70-110) mg/dL Plasma Lactic Acid Bertram (0.7-2.0) mmol/L C-Reactive Protein (<1.0) mg/dL Albumin (3.5-5.0) g/dL Urine Protein (Negative) Urine Bacteria (None) /hpf Hyaline Casts (0-2) /lpf Urine Mucus (None) /hpf 08/19/23 Range/Units 10:26 WBC (3.8-10.6) k/uL RBC (4.30-5.90) m/uL Hgb (13.0-17.5) gm/dL Hct (39.0-53.0) % Neutrophils # (1.3-7.7) k/uL PT (10.0-12.5) sec INR (<1.2) BUN (9-20) mg/dL Creatinine (0.66-1.25) mg/dL Glucose (74-99) mg/dL POC Glucose (mg/dL) 51 L (70-110) mg/dL Plasma Lactic Acid Bertram (0.7-2.0) mmol/L C-Reactive Protein (<1.0) mg/dL Albumin (3.5-5.0) g/dL Urine Protein (Negative) Urine Bacteria (None) /hpf Hyaline Casts (0-2) /lpf Urine Mucus (None) /hpf Thrombosis Risk Factor Assmnt - Choose All That Apply Any of the Below Risk Factors Present?: Yes Each Factor Represents 1 point: Obesity (BMI >25), Swollen legs (current) Other Risk Factors: Yes Each Risk Factor Represents 2 Points: Patient confined to bed Each Risk Factor Represents 3 Points: Age 75 years or older Thrombosis Risk Factor Assessment Total Risk Factor Score: 7 Thrombosis Risk Factor Assessment Level: High Risk
[2023-08-19 14:57] LABS: ALT 18 U/L (4-49); AST 33 U/L (17-59); African American GFR (CKD) 46 (>60 ml/min/1.73 sqM); Albumin 2.8 g/dL (3.5-5.0); Albumin/Globulin Ratio 0.7; Alkaline Phosphatase 94 U/L (38-126); Anion Gap 11 mmol/L; Blood Urea Nitrogen 36 mg/dL (9-20); Calcium 8.2 mg/dL (8.4-10.2); Carbon Dioxide 24 mmol/L (22-30); Chloride 101 mmol/L (98-107); Globulin 4.1 g/dL; Glucose 107 mg/dL (74-99); Non-African American GFR(CKD) 40 (>60 ml/min/1.73 sqM); Potassium 3.3 mmol/L (3.5-5.1); Sodium 136 mmol/L (137-145); Total Bilirubin 0.4 mg/dL (0.2-1.3); Total Protein 6.9 g/dL (6.3-8.2)
[2023-08-19 17:08] LABS: Glucose,Whole Blood 86 mg/dL (70-110)
[2023-08-19 20:42] LABS: Glucose,Whole Blood 121 mg/dL (70-110)
--- NOTE | 2023-08-19 20:49 | P.CONS ---
History of Present Illness - Reason for Consult Consult date: 08/19/23 Cellulitis Requesting physician: Babita Zendejas - Chief Complaint Increasing redness to bilateral thigh x days - History of Present Illness Patient is a 77-year-old male with a past medical history significant for diabetes mellitus hyperlipidemia memory impairment reflux atrial fibrillation [facility] patient has been sent to the ER concerning for cellulitis involving his inner thighs lower back and buttock area apparently symptom has been going on for a day or 2 before the patient has been brought into the hospital he did receive a dose of Rocephin at the [facility] patient has been complaining of pain everywhere patient denies high-grade fever and no fever have been recorded no chest pain or shortness of breath or cough no nausea vomiting no abdominal pain or diarrhea has been complaining of some pain to the lower extremity but unable to quantify it any further, patient on presentation to the hospital was afebrile he was not tachycardic or hypotensive not hypoxic currently on 2 L nasal cannula oxygen patient did have a white count of 26.5 with a left shift creatinine was elevated 1.78 liver isms are normal urine has been negative patient was started on vancomycin and cefepime infectious disease was consulted for further management of antibiotic therapy Review of Systems Positive point and negatives has been mentioned in the HPI, complete review of systems was performed and all other systems are negative Past Medical History Past Medical History: Atrial Fibrillation, Chest Pain / Angina, Heart Failure, CVA/TIA, Diabetes Mellitus, GERD/Reflux, Hyperlipidemia, Memory Impairment, Prostate Disorder, Renal Disease, Sleep Apnea/CPAP/BIPAP Additional Past Medical History / Comment(s): 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, Type 2 Diabetes, BPH, Stage 3 chronic kidney disease, CHF, Anemia, insomnia, short term memory History of Any Multi-Drug Resistant Organisms: None Reported Past Surgical History: Appendectomy, Orthopedic Surgery Past Anesthesia/Blood Transfusion Reactions: No Reported Reaction Past Psychological History: No Psychological Hx Reported, Depression Smoking Status: Never smoker Past Alcohol Use History: None Reported Past Drug Use History: None Reported Medications and Allergies Home Medications Medication Instructions Recorded Confirmed Type Cholecalciferol [Vitamin D3 (25 25 mcg PO DAILY@0600 01/17/22 08/18/23 History Mcg = 1000 Iu)] PARoxetine [Paxil] 10 mg PO HS@199901/17/22 08/18/23 History Primidone [Mysoline] 50 mg PO HS@199901/17/22 08/18/23 History Tamsulosin [Flomax] 0.4 mg PO HS@199901/17/22 08/18/23 History polyethylene glycoL 3350 [Miralax] 17 gm PO DAILY 01/17/22 08/18/23 History Atorvastatin [Lipitor] 40 mg PO HS@199903/01/22 08/18/23 History Nitroglycerin Sl Tabs [Nitrostat] 0.4 mg SL Q5M PRN 03/01/22 08/18/23 History Apixaban [Eliquis] 5 mg PO BID 08/04/22 08/18/23 History Multivitamins, Thera [Multivitamin 1 tab PO DAILY 08/04/22 08/18/23 History (formulary)] Isosorbide Mononitrate ER [Imdur] 30 mg PO DAILY #30 tab 08/12/22 08/18/23 Rx Acetaminophen Tab [Tylenol] 1,000 mg PO BID PRN 09/07/22 08/18/23 History Docusate [Colace] 100 mg PO HS@199909/07/22 08/18/23 History Ranolazine [Ranexa] 500 mg PO BID@0700,1900 09/07/22 08/18/23 History Bumetanide [BUMEX] 2 mg PO BID 01/06/23 08/18/23 History Menthol [Biofreeze] 1 applic TOPICAL Q8H PRN 01/06/23 08/18/23 History Menthol [Biofreeze] 1 applic TOPICAL QID@05,11,17,01/06/23 08/18/23 History Metoprolol Tartrate [Lopressor] 25 mg PO BID@0700,1900 01/06/23 08/18/23 History glipiZIDE [Glucotrol] 5 mg PO HS 01/21/23 08/18/23 History glipiZIDE [Glucotrol] 10 mg PO DAILY 01/21/23 08/18/23 History Baclofen 10 mg PO TID@0700,1300,1900 3 Days 01/25/23 08/18/23 Rx #9 tab Lansoprazole 15 mg PO DAILY 06/06/23 08/18/23 History Latanoprost [Latanoprost 0.005%] 1 drop LEFT EYE HS 06/06/23 08/18/23 History Potassium Chloride ER [K-Dur 10] 10 meq PO BID 06/06/23 08/18/23 History Ibuprofen [Motrin Ib] 400 mg PO Q6H PRN 08/18/23 08/18/23 History Naloxone HCl 0.4 mg SQ ONCE PRN 08/18/23 08/18/23 History Naloxone HCl [Narcan] 4 mg NASAL DIRECTED PRN 08/18/23 08/18/23 History Cephalexin [Keflex] 500 mg PO Q8HR 10 Days #30 cap 08/23/23 Rx Gabapentin [Neurontin] 400 mg PO TID@0700,1300,1900 3 08/23/23 Rx Days #6 cap HYDROcodone/APAP 5-325MG [[place] 1 tab PO QID@05,11,17,23 3 Days #8 08/23/23 Rx 5-325] tab Allergies Allergy/AdvReac Type Severity Reaction Status Date / Time No Known Allergies Allergy Verified 08/18/23 16:19 Physical Exam Vitals: Vital Signs Temp Pulse Pulse Pulse Resp BP BP 08/19/23 08:16 08/19/23 07:22 97.4 F L 86 19 08/19/23 02:43 97.9 F 78 20 108/65 08/18/23 21:38 98.3 F 98 18 100/63 08/18/23 21:29 98.3 F 15 08/18/23 18:00 92 18 100/66 08/18/23 17:29 97 18 118/63 08/18/23 15:00 94 18 106/64 08/18/23 13:54 98.5 F 83 20 105/61 BP Pulse Ox 08/19/23 08:16 97 08/19/23 07:22 126/73 97 08/19/23 02:43 97 08/18/23 21:38 98 08/18/23 21:29 08/18/23 18:00 98 08/18/23 17:29 95 08/18/23 15:00 96 08/18/23 13:54 97 Intake and Output 08/18/23 08/19/23 08/19/23 22:59 06:59 14:59 Output Total 800 Balance -800 Output: Urine 800 Straight 800 Other: Voiding Method Diaper External Catheter # Voids 1 2 Weight 124.738 kg GENERAL DESCRIPTION: Elderly male lying in bed, no distress. No tachypnea or accessory muscle of respiration use. HEENT: Shows Pallor , no scleral icterus. Oral mucous membrane is dry. No pharyngeal erythema or thrush NECK: Trachea central, no thyromegaly. LUNGS: Unlabored breathing. Clear to auscultation anteriorly. No wheeze or crackle. HEART: S1, S2, regular rate and rhythm. No loud murmur ABDOMEN: Soft, no tenderness , guarding or rigidity, no organomegaly EXTREMITIES: Bilateral thigh area did have an swelling redness no blisters no open wound or drainage SKIN: No rash, no masses palpable. NEUROLOGICAL: The patient is awake, alert, oriented x3, mood and affect normal. Results CBC & Chem 7: 08/22/23 05:32 08/22/23 05:32 Labs: Abnormal Lab Results - Last 24 Hours (Table) 08/18/23 08/18/23 08/18/23 Range/Units 14:29 14:29 14:29 WBC 26.5 H (3.8-10.6) k/uL RBC 3.98 L (4.30-5.90) m/uL Hgb 12.5 L (13.0-17.5) gm/dL Hct 37.3 L (39.0-53.0) % Neutrophils # 24.8 H (1.3-7.7) k/uL PT (10.0-12.5) sec INR (<1.2) BUN 41 H (9-20) mg/dL Creatinine 2.33 H (0.66-1.25) mg/dL Glucose 61 L (74-99) mg/dL POC Glucose (mg/dL) (70-110) mg/dL Plasma Lactic Acid Bertram 2.5 H* (0.7-2.0) mmol/L C-Reactive Protein 43.6 H (<1.0) mg/dL Albumin 3.3 L (3.5-5.0) g/dL Urine Protein (Negative) Urine Bacteria (None) /hpf Hyaline Casts (0-2) /lpf Urine Mucus (None) /hpf 08/18/23 08/18/23 08/19/23 Range/Units 15:57 17:54 04:50 WBC (3.8-10.6) k/uL RBC (4.30-5.90) m/uL Hgb (13.0-17.5) gm/dL Hct (39.0-53.0) % Neutrophils # (1.3-7.7) k/uL PT 13.5 H (10.0-12.5) sec INR 1.3 H (<1.2) BUN (9-20) mg/dL Creatinine (0.66-1.25) mg/dL Glucose (74-99) mg/dL POC Glucose (mg/dL) (70-110) mg/dL Plasma Lactic Acid Bertram 2.2 H* (0.7-2.0) mmol/L C-Reactive Protein (<1.0) mg/dL Albumin (3.5-5.0) g/dL Urine Protein 1+ H (Negative) Urine Bacteria Rare H (None) /hpf Hyaline Casts 3 H (0-2) /lpf Urine Mucus Rare H (None) /hpf 08/19/23 08/19/23 08/19/23 Range/Units 05:21 05:25 07:13 WBC (3.8-10.6) k/uL RBC (4.30-5.90) m/uL Hgb (13.0-17.5) gm/dL Hct (39.0-53.0) % Neutrophils # (1.3-7.7) k/uL PT (10.0-12.5) sec INR (<1.2) BUN (9-20) mg/dL Creatinine 1.78 H (0.66-1.25) mg/dL Glucose (74-99) mg/dL POC Glucose (mg/dL) 45 L 41 L (70-110) mg/dL Plasma Lactic Acid Bertram (0.7-2.0) mmol/L C-Reactive Protein (<1.0) mg/dL Albumin (3.5-5.0) g/dL Urine Protein (Negative) Urine Bacteria (None) /hpf Hyaline Casts (0-2) /lpf Urine Mucus (None) /hpf 08/19/23 08/19/23 08/19/23 Range/Units 09:12 10:01 10:13 WBC (3.8-10.6) k/uL RBC (4.30-5.90) m/uL Hgb (13.0-17.5) gm/dL Hct (39.0-53.0) % Neutrophils # (1.3-7.7) k/uL PT (10.0-12.5) sec INR (<1.2) BUN (9-20) mg/dL Creatinine (0.66-1.25) mg/dL Glucose (74-99) mg/dL POC Glucose (mg/dL) 58 L 44 L 135 H (70-110) mg/dL Plasma Lactic Acid Bertram (0.7-2.0) mmol/L C-Reactive Protein (<1.0) mg/dL Albumin (3.5-5.0) g/dL Urine Protein (Negative) Urine Bacteria (None) /hpf Hyaline Casts (0-2) /lpf Urine Mucus (None) /hpf 08/19/23 08/19/23 Range/Units 10:26 10:35 WBC (3.8-10.6) k/uL RBC (4.30-5.90) m/uL Hgb (13.0-17.5) gm/dL Hct (39.0-53.0) % Neutrophils # (1.3-7.7) k/uL PT (10.0-12.5) sec INR (<1.2) BUN (9-20) mg/dL Creatinine (0.66-1.25) mg/dL Glucose (74-99) mg/dL POC Glucose (mg/dL) 51 L 116 H (70-110) mg/dL Plasma Lactic Acid Bertram (0.7-2.0) mmol/L C-Reactive Protein (<1.0) mg/dL Albumin (3.5-5.0) g/dL Urine Protein (Negative) Urine Bacteria (None) /hpf Hyaline Casts (0-2) /lpf Urine Mucus (None) /hpf Assessment and Plan (1) Bilateral lower leg cellulitis Status: Acute Code(s): L03.116 - CELLULITIS OF LEFT LOWER LIMB; L03.115 - CELLULITIS OF RIGHT LOWER LIMB SNOMED Code(s): 520438030 (2) Leukocytosis Status: Acute Code(s): D72.829 - ELEVATED WHITE BLOOD CELL COUNT, UNSPECIFIED SNOMED Code(s): 707931440 Plan: 1patient presented to hospital increasing swelling redness of the lower extremity thigh concerning for cellulitis did have elevated white count with diffuse swelling redness more likely from gram-positive skin aimee less likely gram-negative infection 2-patient with an insufficiency high risk of nephrotoxicity from vancomycin 3-positive blood culture for likely related to cellulitis awaiting final ID 4-blood cultures will be repeated document clearance of bacteremia 5-discontinue cefepime and vancomycin 6-start the patient on cefazolin 2 g every 8 hours We will follow on clinical condition and cultures to further adjust medication if needed Thank you for this consultation we will follow the patient along with you Dictation was produced using [employer] dictation software. please excuse any grammatical, word or spelling errors. Time with Patient: Greater than 30
[2023-08-20 05:49] LABS: Glucose,Whole Blood 90 mg/dL (70-110)
[2023-08-20 07:48] LABS: Basophils % (A) 0 %; Eosinophils # (A) 0.1 k/uL (0-0.7); Eosinophils % (A) 1 %; HCT 33.7 % (39.0-53.0); HGB 10.9 gm/dL (13.0-17.5); Lymphocytes # (A) 0.9 k/uL (1.0-4.8); Lymphocytes % (A) 8 %; MCH 30.1 pg (25.0-35.0); MCHC 32.3 g/dL (31.0-37.0); MCV 93.3 fL (80.0-100.0); Mean Platelet Volume 10.5; Monocytes # (A) 0.4 k/uL (0-1.0); Monocytes % (A) 3 %; Neutrophils # (A) 9.8 k/uL (1.3-7.7); Neutrophils % (A) 87 %; Platelet Count 173 k/uL (150-450); RBC 3.61 m/uL (4.30-5.90); RDW 15.5 % (11.5-15.5); WBC 11.3 k/uL (3.8-10.6)
[2023-08-20] MEDS ORDERED: VANCOMYCIN 2,000 MG in SODIUM CHLORIDE 0.9% 500 ML 500 ML IVPB SCH (08:00)
[2023-08-20 08:45] LABS: ALT 36 U/L (4-49); AST 51 U/L (17-59); African American GFR (CKD) 59 (>60 ml/min/1.73 sqM); Albumin 2.7 g/dL (3.5-5.0); Albumin/Globulin Ratio 0.7; Alkaline Phosphatase 96 U/L (38-126); Anion Gap 9 mmol/L; Blood Urea Nitrogen 31 mg/dL (9-20); Carbon Dioxide 25 mmol/L (22-30); Chloride 99 mmol/L (98-107); Globulin 4.1 g/dL; Glucose 97 mg/dL (74-99); Non-African American GFR(CKD) 51 (>60 ml/min/1.73 sqM); Potassium 3.1 mmol/L (3.5-5.1); Sodium 133 mmol/L (137-145); Total Bilirubin 0.4 mg/dL (0.2-1.3); Total Protein 6.8 g/dL (6.3-8.2)
[2023-08-20 10:12] LABS: Creatinine,Urine Random 51.7 mg/dL (39.0-259.0)
[2023-08-20] MEDS: POTASSIUM CHLORIDE ER 20 MEQ TAB.ER PO SCH (10:25)
[2023-08-20 11:56] LABS: Glucose,Whole Blood 157 mg/dL (70-110)
--- NOTE | 2023-08-20 12:13 | P.NPCON ---
History of Present Illness - Reason for Consult Consult date: 08/20/23 acute renal failure - History of Present Illness Patient 77-year-old gentleman with past medical his significant for dementia, CHF, diabetes mellitus, hypertension, presented to the ER for evaluation for redness of his thighs. Patient is currently resident of a skilled nursing facility, nursing staff are concerned that the patient has increased redness of his thighs and back. Patient normally bedbound does not ambulate. There was no complaint of fever or chills. Patient noted to have JS on presentation and nephrology was consulted. Vital signs are stable. General: No acute distress. HEENT: Head exam is unremarkable. LUNGS: No audible rhonchi or wheezes. HEART: Rate and Rhythm are regular. ABDOMEN: Nontender. EXTREMITITES: No edema. 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, Type 2 Diabetes, BPH, Stage 3 chronic kidney disease, CHF, Anemia, insomnia, short term memory History of Any Multi-Drug Resistant Organisms: None Reported Past Surgical History: Appendectomy, Orthopedic Surgery Past Anesthesia/Blood Transfusion Reactions: No Reported Reaction Past Psychological History: No Psychological Hx Reported, Depression Smoking Status: Never smoker Past Alcohol Use History: None Reported Past Drug Use History: None Reported Medications and Allergies Home Medications Medication Instructions Recorded Confirmed Type Cholecalciferol [Vitamin D3 (25 25 mcg PO DAILY@0600 01/17/22 08/18/23 History Mcg = 1000 Iu)] PARoxetine [Paxil] 10 mg PO HS@199901/17/22 08/18/23 History Primidone [Mysoline] 50 mg PO HS@199901/17/22 08/18/23 History Tamsulosin [Flomax] 0.4 mg PO HS@199901/17/22 08/18/23 History polyethylene glycoL 3350 [Miralax] 17 gm PO DAILY 01/17/22 08/18/23 History Atorvastatin [Lipitor] 40 mg PO HS@199903/01/22 08/18/23 History Nitroglycerin Sl Tabs [Nitrostat] 0.4 mg SL Q5M PRN 03/01/22 08/18/23 History Apixaban [Eliquis] 5 mg PO BID 08/04/22 08/18/23 History Multivitamins, Thera [Multivitamin 1 tab PO DAILY 08/04/22 08/18/23 History (formulary)] Isosorbide Mononitrate ER [Imdur] 30 mg PO DAILY #30 tab 08/12/22 08/18/23 Rx Acetaminophen Tab [Tylenol] 1,000 mg PO BID PRN 09/07/22 08/18/23 History Docusate [Colace] 100 mg PO HS@199909/07/22 08/18/23 History Ranolazine [Ranexa] 500 mg PO BID@0700,1900 09/07/22 08/18/23 History Bumetanide [BUMEX] 2 mg PO BID 01/06/23 08/18/23 History Menthol [Biofreeze] 1 applic TOPICAL Q8H PRN 01/06/23 08/18/23 History Menthol [Biofreeze] 1 applic TOPICAL QID@,,,01/06/23 08/18/23 History Metoprolol Tartrate [Lopressor] 25 mg PO BID@0700,1900 01/06/23 08/18/23 History glipiZIDE [Glucotrol] 5 mg PO HS 01/21/23 08/18/23 History glipiZIDE [Glucotrol] 10 mg PO DAILY 01/21/23 08/18/23 History Baclofen 10 mg PO TID@0700,1300,1900 3 Days 01/25/23 08/18/23 Rx #9 tab Gabapentin [Neurontin] 400 mg PO TID@0700,1300,1900 3 01/25/23 08/18/23 Rx Days #9 cap HYDROcodone/APAP 5-325MG [[place] 1 tab PO QID@05,,, 3 Days 01/25/23 08/18/23 Rx 5-325] #12 tab Lansoprazole 15 mg PO DAILY 06/06/23 08/18/23 History Latanoprost [Latanoprost 0.005%] 1 drop LEFT EYE HS 06/06/23 08/18/23 History Potassium Chloride ER [K-Dur 10] 10 meq PO BID 06/06/23 08/18/23 History Doxycycline Hyclate 100 mg PO BID 08/18/23 08/18/23 History Ibuprofen [Motrin Ib] 400 mg PO Q6H PRN 08/18/23 08/18/23 History Naloxone HCl 0.4 mg SQ ONCE PRN 08/18/23 08/18/23 History Naloxone HCl [Narcan] 4 mg NASAL DIRECTED PRN 08/18/23 08/18/23 History cefTRIAXone [Rocephin] 1 gm IM ONCE 08/18/23 08/18/23 History Allergies Allergy/AdvReac Type Severity Reaction Status Date / Time No Known Allergies Allergy Verified 08/18/23 16:19 Physical Exam Vitals: Vital Signs Temp Pulse Pulse Resp BP BP Pulse Ox 08/20/23 07:40 98.3 F 76 19 113/69 91 L 08/20/23 01:21 98.9 F 90 18 115/68 97 08/19/23 19:36 98.7 F 80 16 97 08/19/23 16:59 98.5 F 93 18 115/68 96 08/19/23 15:38 98.6 F 85 18 116/72 99 08/19/23 13:38 20 Intake and Output 08/19/23 08/20/23 08/20/23 22:59 06:59 14:59 Output Total 1000 600 Balance -1000 -600 Output: Urine 1000 600 Results - Lab Results Most recent lab results Calcium 8.0 mg/dL (8.4-10.2) L 08/20/23 07:20 08/20/23 07:20 08/20/23 07:20 Assessment and Plan Plan: Assessment: 1. Non-oliguric JS likely prerenal along with urinary retention. Presented creatinine 2.3, now back at baseline 1.3 with IVF and s/p Aguero. UA positive for hyaline casts. 2. Hypokalemia related to diuresis. 3. CKD Stage 3b, baseline creatinine 1.1-1.3 mg/dL 4. Bilateral LE Cellulitis 5. Urinary retention 6. HTN with CKD Plan: Off IVF now. Maintain Aguero, strict I/O's. ABX per primary team. No further renal function work-up, daily BMP. Start Flomax. Increase Kcl 40meq BID while on Bumex. Continue home BP medications.
--- NOTE | 2023-08-20 14:27 | P.PN ---
Subjective Progress Note Date: 08/20/23 * 77-year-old gentleman with past medical his significant for dementia, CHF, diabetes mellitus, hypertension, presented to the ER for evaluation for redness of his thighs. * Patient is currently resident of a snf facility, nursing staff are concerned that the patient has increased redness of his thighs and back. Patient normally bedbound does not ambulate. * There was concern the patient had cellulitis and patient seen 1 g of Rocephin in the snf and was sent to the ER for further evaluation * Initial lab work done in the ER showed WBC 26.5, hemoglobin 12.5, platelet count 213 sodium 140, potassium 4.1, BUN 41, creatinine 2.33, plasma lactate 2.5 * EKG done in the ER showed heart rate of 94, irregular in rhythm, no ST segment elevation or depression seen, no T-wave inversions seen. * Chest x-ray done in the ER low lung volumes and mild cardiomegaly, no acute pulm infiltrate seen * 08/20/2023: Patient seen and evaluated bedside, patient being treated for congestive heart failure, left thigh cellulitis white cell count trending down 11k from 26,000 from admission. Creatinine 1.32, patient states he feels better PHYSICAL EXAMINATION: GENERAL: The patient is alert , not in any acute distress. Chronically ill looking HEENT: Pupils are round and equally reacting to light. EOMI. CARDIOVASCULAR: S1 and S2 present. No murmurs, rubs, or gallops. PULMONARY: Chest is clear to auscultation, no wheezing or crackles. ABDOMEN: Soft, nontender, nondistended, normoactive bowel sounds. No palpable organomegaly. MUSCULOSKELETAL: No joint swelling or deformity. EXTREMITIES: No cyanosis, clubbing, lower extremity bilateral edema NEUROLOGICAL: Baseline dementia, residual right-sided weakness SKIN: No rashes. Assessment and plan * Left thigh cellulitis * Coagulase-negative Staph bacteremia likely contaminant * Sepsis secondary to cellulitis * Acute kidney injury on chronic kidney disease * History of atrial fibrillation on Eliquis * Chronic congestive heart failure diastolic dysfunction * History of CVA with right-sided hemiparesis * Coronary artery disease * Diabetes mellitus with diabetic neuropathy * History of sacral decub ulcer * Morbid obesity * In regards to sepsis and cellulitis continue patient on IV antibiotic patient receiving IV Ancef infectious disease consulted * Blood cultures with coagulase-negative staph. * Regards to JS avoid nephrotoxic medications. Patient appropriately resuscitated with fluid back on home dose of Bumex * Regards to chronic congestive heart failure continue home regimen including Bumex * Patient will need speech therapy evaluation * Nephrology infectious disease consulted Objective - Vital Signs Vital signs: Vital Signs Temp 98.3 F 08/20/23 07:40 Pulse 76 08/20/23 07:40 Resp 19 08/20/23 07:40 BP 113/69 08/20/23 07:40 Pulse Ox 91 L 08/20/23 07:40 FiO2 Intake & Output 08/19/23 08/20/23 08/20/23 18:59 06:59 18:59 Intake Total 200 Output Total 1575 600 900 Balance -1375 -600 -900 Intake: Oral 200 Output: Urine 1575 600 900 Other: Voiding Method Indwelling Catheter External Catheter - Labs CBC & Chem 7: 08/20/23 07:20 08/20/23 07:20 Labs: Abnormal Lab Results - Last 24 Hours (Table) 08/19/23 08/19/23 08/19/23 Range/Units 11:52 14:00 14:00 WBC 15.7 H (3.8-10.6) k/uL RBC 3.60 L (4.30-5.90) m/uL Hgb 10.9 L (13.0-17.5) gm/dL Hct 34.8 L (39.0-53.0) % Neutrophils # 14.5 H (1.3-7.7) k/uL Lymphocytes # 0.7 L (1.0-4.8) k/uL Sodium 136 L (137-145) mmol/L Potassium 3.3 L (3.5-5.1) mmol/L BUN 36 H (9-20) mg/dL Creatinine 1.62 H (0.66-1.25) mg/dL Glucose 107 H (74-99) mg/dL POC Glucose (mg/dL) 121 H (70-110) mg/dL Calcium 8.2 L (8.4-10.2) mg/dL Albumin 2.8 L (3.5-5.0) g/dL 08/19/23 08/20/23 08/20/23 Range/Units 20:40 07:20 07:20 WBC 11.3 H (3.8-10.6) k/uL RBC 3.61 L (4.30-5.90) m/uL Hgb 10.9 L (13.0-17.5) gm/dL Hct 33.7 L (39.0-53.0) % Neutrophils # 9.8 H (1.3-7.7) k/uL Lymphocytes # 0.9 L (1.0-4.8) k/uL Sodium 133 L (137-145) mmol/L Potassium 3.1 L (3.5-5.1) mmol/L BUN 31 H (9-20) mg/dL Creatinine 1.32 H (0.66-1.25) mg/dL Glucose (74-99) mg/dL POC Glucose (mg/dL) 121 H (70-110) mg/dL Calcium 8.0 L (8.4-10.2) mg/dL Albumin 2.7 L (3.5-5.0) g/dL Microbiology - Last 24 Hours (Table) 08/18/23 15:50 Blood Culture Gram Stain - Preliminary Blood Blood Culture - Preliminary Coagulase Negative Staph 08/18/23 15:35 Blood Culture Gram Stain - Preliminary Blood Blood Culture - Preliminary Coagulase Negative Staph
--- NOTE | 2023-08-20 15:56 | P.PN ---
Subjective Progress Note Date: 08/20/23 Principal diagnosis: Reason for follow-up is a bilateral lower extremity cellulitis and positive blood culture Patient is a 77-year-old male with a past medical history significant for diabetes mellitus hyperlipidemia memory impairment reflux atrial fibrillation resident of the local snf patient has been sent to the ER concerning for cellulitis involving his inner thighs lower back and buttock area. On today's evaluation that is 08/20/2023,the patient remains to be afebrile, patient is on 2 L nasal cannula supplemental oxygen and denies any shortness of breath no chest pain or cough.Patient denies having any nausea or vomiting, no abdominal pain and no diarrhea has been reported. Patient white count is down to 11.3, creatinine is 1.32 blood culture with coagulase-negative staph Objective - Vital Signs Vital signs: Vital Signs Temp 98.3 F 08/20/23 07:40 Pulse 76 08/20/23 07:40 Resp 19 08/20/23 07:40 BP 113/69 08/20/23 07:40 Pulse Ox 91 L 08/20/23 07:40 FiO2 Intake & Output 08/19/23 08/20/23 08/20/23 18:59 06:59 18:59 Intake Total 200 Output Total 1575 600 900 Balance -1375 -600 -900 Intake: Oral 200 Output: Urine 1575 600 900 Other: Voiding Method Indwelling Catheter External Catheter # Bowel Movements 1 - Exam GENERAL DESCRIPTION: An elderly male lying in bed in no distress RESPIRATORY SYSTEM: Unlabored breathing , decreased breath sounds at bases HEART: S1 S2 regular rate and rhythm , ABDOMEN: Soft , no tenderness EXTREMITIES: Bilateral thigh area did have some swelling redness has decreased no open wound or drainage - Labs CBC & Chem 7: 08/20/23 07:20 08/20/23 07:20 Labs: Abnormal Lab Results - Last 24 Hours (Table) 08/19/23 08/20/23 08/20/23 Range/Units 20:40 07:20 07:20 WBC 11.3 H (3.8-10.6) k/uL RBC 3.61 L (4.30-5.90) m/uL Hgb 10.9 L (13.0-17.5) gm/dL Hct 33.7 L (39.0-53.0) % Neutrophils # 9.8 H (1.3-7.7) k/uL Lymphocytes # 0.9 L (1.0-4.8) k/uL Sodium 133 L (137-145) mmol/L Potassium 3.1 L (3.5-5.1) mmol/L BUN 31 H (9-20) mg/dL Creatinine 1.32 H (0.66-1.25) mg/dL POC Glucose (mg/dL) 121 H (70-110) mg/dL Calcium 8.0 L (8.4-10.2) mg/dL Albumin 2.7 L (3.5-5.0) g/dL 08/20/23 Range/Units 11:55 WBC (3.8-10.6) k/uL RBC (4.30-5.90) m/uL Hgb (13.0-17.5) gm/dL Hct (39.0-53.0) % Neutrophils # (1.3-7.7) k/uL Lymphocytes # (1.0-4.8) k/uL Sodium (137-145) mmol/L Potassium (3.5-5.1) mmol/L BUN (9-20) mg/dL Creatinine (0.66-1.25) mg/dL POC Glucose (mg/dL) 157 H (70-110) mg/dL Calcium (8.4-10.2) mg/dL Albumin (3.5-5.0) g/dL Microbiology - Last 24 Hours (Table) 08/18/23 15:35 Blood Culture Gram Stain - Preliminary Blood Blood Culture - Preliminary Coagulase Negative Staph 08/18/23 15:50 Blood Culture Gram Stain - Preliminary Blood Blood Culture - Preliminary Coagulase Negative Staph Assessment and Plan (1) Bilateral lower leg cellulitis Current Visit: Yes Status: Acute Code(s): L03.116 - CELLULITIS OF LEFT LOWER LIMB; L03.115 - CELLULITIS OF RIGHT LOWER LIMB SNOMED Code(s): 279801312 (2) Positive blood culture Current Visit: Yes Status: Acute Code(s): R78.81 - BACTEREMIA SNOMED Cod e(s): 001082537 Plan: 1patient presented to hospital increasing swelling redness of the lower extremity thigh concerning for cellulitis did have elevated white count with diffuse swelling redness more likely from gram-positive skin aimee less likely gram-negative infection 2-patient with an insufficiency high risk of nephrotoxicity from vancomycin 3-positive blood culture with coagulase-negative staph more likely skin contamination, repeat blood cultures pending 4-patient to continue with cefazolin 2 g every 8 hours and monitor clinical course closely Dictation was produced using [employer] dictation software. please excuse any grammatical, word or spelling errors. Time with Patient: Less than 30
[2023-08-20 17:08] LABS: Glucose,Whole Blood 176 mg/dL (70-110)
[2023-08-20] MEDS: ACETAMINOPHEN TAB 325 MG TAB PO PRN (20:19)
[2023-08-20 21:03] LABS: Glucose,Whole Blood 178 mg/dL (70-110)
[2023-08-21 06:04] LABS: Glucose,Whole Blood 120 mg/dL (70-110)
[2023-08-21 10:11] LABS: HCT 31.1 % (39.6-50.0); HGB 10.3 g/dL (13.0-17.0); MCHC 33.1 g/dL (32.0-37.0); MCV 90.7 FL (80.0-97.0); Mean Platelet Volume 12.4 FL (9.5-12.2); NRBC Per 100 WBC 0 X 10*3/uL (0.00-0.01); Platelet Count 175 X 10*3/uL (140-440); RBC 3.43 X 10*6/uL (4.40-5.60); RDW 16.2 % (11.5-14.5)
[2023-08-21 10:52] LABS: BUN/Creat Ratio 18.33 Ratio (12.00-20.00); Blood Urea Nitrogen 27.5 mg/dL (9.0-27.0); Calcium 8.3 mg/dL (8.7-10.3); Carbon Dioxide 25.7 mmol/L (21.6-31.8); Chloride 99 mmol/L (96-109); Glucose 124 mg/dL (70-110); Potassium 3.8 mmol/L (3.5-5.5); Sodium 136 mmol/L (135-145)
--- NOTE | 2023-08-21 11:26 | P.PN ---
Subjective Progress Note Date: 08/21/23 Patient seen for follow-up for JS. Denies any new complaints. Vital signs are stable. General: No acute distress. HEENT: Head exam is unremarkable. LUNGS: No audible rhonchi or wheezes. HEART: Rate and Rhythm are regular. ABDOMEN: Nontender. EXTREMITITES: No edema. Objective - Vital Signs Vital signs: Vital Signs Temp 98.1 F 08/21/23 07:56 Pulse 69 08/21/23 07:56 Resp 18 08/21/23 07:56 BP 109/66 08/21/23 07:56 Pulse Ox 97 08/21/23 07:56 FiO2 Intake & Output 08/20/23 08/21/23 08/21/23 18:59 06:59 18:59 Output Total 1525 650 Balance -1525 -650 Output: Urine 1525 650 Other: Voiding Method Indwelling Catheter Indwelling Catheter # Bowel Movements 1 1 - Labs CBC & Chem 7: 08/21/23 06:05 08/20/23 07:20 Labs: Abnormal Lab Results - Last 24 Hours (Table) 08/20/23 08/20/23 08/20/23 Range/Units 07:20 11:55 17:06 WBC (4.50-10.00) X 10*3/uL RBC (4.40-5.60) X 10*6/uL Hgb (13.0-17.0) g/dL Hct (39.6-50.0) % RDW (11.5-14.5) % MPV (9.5-12.2) FL POC Glucose (mg/dL) 157 H 176 H (70-110) mg/dL Hemoglobin A1c 7.6 H (<=6.0) % 08/20/23 08/21/23 08/21/23 Range/Units 20:59 05:59 06:05 WBC 10.70 H (4.50-10.00) X 10*3/uL RBC 3.43 L (4.40-5.60) X 10*6/uL Hgb 10.3 L (13.0-17.0) g/dL Hct 31.1 L (39.6-50.0) % RDW 16.2 H (11.5-14.5) % MPV 12.4 H (9.5-12.2) FL POC Glucose (mg/dL) 178 H 120 H (70-110) mg/dL Hemoglobin A1c (<=6.0) % Microbiology - Last 24 Hours (Table) 08/18/23 15:35 Blood Culture Gram Stain - Preliminary Blood Blood Culture - Preliminary Coagulase Negative Staph 08/18/23 15:50 Blood Culture Gram Stain - Preliminary Blood Blood Culture - Preliminary Coagulase Negative Staph Assessment and Plan Plan: Assessment: 1. Non-oliguric JS likely prerenal along with urinary retention. Presented creatinine 2.3, now back at baseline 1.3 with IVF and s/p Aguero. UA positive for hyaline casts. Urine output 2.1L past 24 hours. 2. Hypokalemia related to diuresis. 3. CKD Stage 3b, baseline creatinine 1.1-1.3 mg/dL 4. Bilateral LE Cellulitis 5. Urinary retention 6. HTN with CKD Plan: Off IVF now. Maintain Aguero, strict I/O's. ABX per primary team. No further renal function work-up, daily BMP. Start Flomax. Kcl 40meq BID while on Bumex, await repeat labs today. Continue home BP medications.
[2023-08-21 11:46] LABS: Glucose,Whole Blood 161 mg/dL (70-110)
--- NOTE | 2023-08-21 12:59 | P.PN ---
Subjective Progress Note Date: 08/21/23 * 77-year-old gentleman with past medical his significant for dementia, CHF, diabetes mellitus, hypertension, presented to the ER for evaluation for redness of his thighs. * [facility] facility, nursing staff are concerned that the patient has increased redness of his thighs and back. Patient normally bedbound does not ambulate. * There was concern the patient had cellulitis and patient seen 1 g of [facility]cephin in the [facility] and was sent to the ER for further evaluation * Initial lab work done in the ER showed WBC 26.5, hemoglobin 12.5, platelet count 213 sodium 140, potassium 4.1, BUN 41, creatinine 2.33, plasma lactate 2.5 * EKG done in the ER showed heart rate of 94, irregular in rhythm, no ST segment elevation or depression seen, no T-wave inversions seen. * Chest x-ray done in the ER low lung volumes and mild cardiomegaly, no acute pulm infiltrate seen * 08/20/2023: Patient seen and evaluated bedside, patient being treated for congestive heart failure, left thigh cellulitis white cell count trending down 11k from 26,000 from admission. Creatinine 1.32, patient states he feels better * 08/21/2023: Patient seen and evaluated bedside, on evaluation patient is awake and alert, continue patient on IV antibiotic,. Blood work reviewed, WBC trending down, blood cultures show Staphylococcus hemolyticus. Continue patient on IV Ancef follow-up on blood work will need discharge to rehab PHYSICAL EXAMINATION: GENERAL: The patient is alert , not in any acute distress. Chronically ill looking HEENT: Pupils are round and equally reacting to light. EOMI. CARDIOVASCULAR: S1 and S2 present. No murmurs, rubs, or gallops. PULMONARY: Chest is clear to auscultation, no wheezing or crackles. ABDOMEN: Soft, nontender, nondistended, normoactive bowel sounds. No palpable organomegaly. MUSCULOSKELETAL: No joint swelling or deformity. EXTREMITIES: No cyanosis, clubbing, lower extremity bilateral edema NEUROLOGICAL: Baseline dementia, residual right-sided weakness SKIN: No rashes. Assessment and plan * Left thigh cellulitis * Coagulase-negative Staph bacteremia likely contaminant * Sepsis secondary to cellulitis * Acute kidney injury on chronic kidney disease * History of atrial fibrillation on Eliquis * Chronic congestive heart failure diastolic dysfunction * History of CVA with right-sided hemiparesis * Coronary artery disease * Diabetes mellitus with diabetic neuropathy * History of sacral decub ulcer * Morbid obesity * In regards to sepsis and cellulitis continue patient on IV antibiotic patient receiving IV Ancef infectious disease consulted * Blood cultures with coagulase-negative staph. * Regards to JS avoid nephrotoxic medications. Patient appropriately resuscitated with fluid back on home dose of Bumex * Regards to chronic congestive heart failure continue home regimen including Bumex * Patient will need speech therapy evaluation * Nephrology infectious disease consulted Objective - Vital Signs Vital signs: Vital Signs Temp 98.1 F 08/21/23 07:56 Pulse 69 08/21/23 07:56 Resp 18 08/21/23 07:56 BP 109/66 08/21/23 07:56 Pulse Ox 97 08/21/23 07:56 FiO2 Intake & Output 08/20/23 08/21/23 08/21/23 18:59 06:59 18:59 Output Total 1525 650 950 Balance -1525 -650 -950 Output: Urine 1525 650 950 Other: Voiding Method Indwelling Catheter Indwelling Catheter # Bowel Movements 1 1 - Labs CBC & Chem 7: 08/21/23 06:05 08/21/23 06:05 Labs: Abnormal Lab Results - Last 24 Hours (Table) 08/20/23 08/20/23 08/20/23 Range/Units 07:20 17:06 20:59 WBC (4.50-10.00) X 10*3/uL RBC (4.40-5.60) X 10*6/uL Hgb (13.0-17.0) g/dL Hct (39.6-50.0) % RDW (11.5-14.5) % MPV (9.5-12.2) FL BUN (9.0-27.0) mg/dL Est GFR (CKD-EPI) (>=60) Glucose (70-110) mg/dL POC Glucose (mg/dL) 176 H 178 H (70-110) mg/dL Hemoglobin A1c 7.6 H (<=6.0) % Calcium (8.7-10.3) mg/dL 08/21/23 08/21/23 08/21/23 Range/Units 05:59 06:05 06:05 WBC 10.70 H (4.50-10.00) X 10*3/uL RBC 3.43 L (4.40-5.60) X 10*6/uL Hgb 10.3 L (13.0-17.0) g/dL Hct 31.1 L (39.6-50.0) % RDW 16.2 H (11.5-14.5) % MPV 12.4 H (9.5-12.2) FL BUN 27.5 H (9.0-27.0) mg/dL Est GFR (CKD-EPI) 47 L (>=60) Glucose 124 H (70-110) mg/dL POC Glucose (mg/dL) 120 H (70-110) mg/dL Hemoglobin A1c (<=6.0) % Calcium 8.3 L (8.7-10.3) mg/dL 08/21/23 Range/Units 11:42 WBC (4.50-10.00) X 10*3/uL RBC (4.40-5.60) X 10*6/uL Hgb (13.0-17.0) g/dL Hct (39.6-50.0) % RDW (11.5-14.5) % MPV (9.5-12.2) FL BUN (9.0-27.0) mg/dL Est GFR (CKD-EPI) (>=60) Glucose (70-110) mg/dL POC Glucose (mg/dL) 161 H (70-110) mg/dL Hemoglobin A1c (<=6.0) % Calcium (8.7-10.3) mg/dL Microbiology - Last 24 Hours (Table) 08/18/23 15:50 Blood Culture Gram Stain - Final Blood Blood Culture - Final Staphylococcus haemolyticus 08/18/23 15:35 Blood Culture Gram Stain - Final Blood Blood Culture - Final Staphylococcus haemolyticus
--- NOTE | 2023-08-21 15:13 | P.PN ---
Subjective Progress Note Date: 08/21/23 Principal diagnosis: Reason for follow-up is a bilateral lower extremity cellulitis and positive blood culture Patient is a 77-year-old male with a past medical history significant for diabetes mellitus hyperlipidemia memory impairment reflux atrial fibrillation resident of the local group home patient has been sent to the ER concerning for cellulitis involving his inner thighs lower back and buttock area. On today's evaluation that is 08/21/2023, the patient continues to be afebrile, the patient is on 2 L nasal cannula oxygen nd breathing comfortably, the Pt d enies having any chest pain or cough, the patient denies having any abdominal pain no vomiting or any diarrhea has been reported by the nursing staff, patient overall swelling and discomfort to the point where he has decreased. Patient with constant 0.70 creatinine is 1.5 blood cultures with Staphylococcus hemolyticus, repeat blood culture pending Objective - Vital Signs Vital signs: Vital Signs Temp 98.1 F 08/21/23 07:56 Pulse 69 08/21/23 07:56 Resp 18 08/21/23 07:56 BP 109/66 08/21/23 07:56 Pulse Ox 97 08/21/23 07:56 FiO2 Intake & Output 08/20/23 08/21/23 08/21/23 18:59 06:59 18:59 Output Total 1525 650 950 Balance -1525 650 -950 Output: Urine 1525 650 950 Other: Voiding Method Indwelling Catheter Indwelling Catheter # Bowel Movements 1 1 - Exam GENERAL DESCRIPTION: An elderly male lying in bed in no distress RESPIRATORY SYSTEM: Unlabored breathing , decreased breath sounds at bases HEART: S1 S2 regular rate and rhythm , ABDOMEN: Soft , no tenderness EXTREMITIES: Bilateral thigh area did have some swelling redness has decreased no open wound or drainage - Labs CBC & Chem 7: 08/21/23 06:05 08/21/23 06:05 Labs: Abnormal Lab Results - Last 24 Hours (Table) 08/20/23 08/20/23 08/20/23 Range/Units 07:20 17:06 20:59 WBC (4.50-10.00) X 10*3/uL RBC (4.40-5.60) X 10*6/uL Hgb (13.0-17.0) g/dL Hct (39.6-50.0) % RDW (11.5-14.5) % MPV (9.5-12.2) FL BUN (9.0-27.0) mg/dL Est GFR (CKD-EPI) (>=60) Glucose (70-110) mg/dL POC Glucose (mg/dL) 176 H 178 H (70-110) mg/dL Hemoglobin A1c 7.6 H (<=6.0) % Calcium (8.7-10.3) mg/dL 08/21/23 08/21/23 08/21/23 Range/Units 05:59 06:05 06:05 WBC 10.70 H (4.50-10.00) X 10*3/uL RBC 3.43 L (4.40-5.60) X 10*6/uL Hgb 10.3 L (13.0-17.0) g/dL Hct 31.1 L (39.6-50.0) % RDW 16.2 H (11.5-14.5) % MPV 12.4 H (9.5-12.2) FL BUN 27.5 H (9.0-27.0) mg/dL Est GFR (CKD-EPI) 47 L (>=60) Glucose 124 H (70-110) mg/dL POC Glucose (mg/dL) 120 H (70-110) mg/dL Hemoglobin A1c (<=6.0) % Calcium 8.3 L (8.7-10.3) mg/dL 08/21/23 Range/Units 11:42 WBC (4.50-10.00) X 10*3/uL RBC (4.40-5.60) X 10*6/uL Hgb (13.0-17.0) g/dL Hct (39.6-50.0) % RDW (11.5-14.5) % MPV (9.5-12.2) FL BUN (9.0-27.0) mg/dL Est GFR (CKD-EPI) (>=60) Glucose (70-110) mg/dL POC Glucose (mg/dL) 161 H (70-110) mg/dL Hemoglobin A1c (<=6.0) % Calcium (8.7-10.3) mg/dL Microbiology - Last 24 Hours (Table) 08/18/23 15:50 Blood Culture Gram Stain - Final Blood Blood Culture - Final Staphylococcus haemolyticus 08/18/23 15:35 Blood Culture Gram Stain - Final Blood Blood Culture - Final Staphylococcus haemolyticus Assessment and Plan (1) Bilateral lower leg cellulitis Current Visit: Yes Status: Acute Code(s): L03.116 - CELLULITIS OF LEFT LOWER LIMB; L03.115 - CELLULITIS OF RIGHT LOWER LIMB SNOMED Code(s): 985018411 (2) Positive blood culture Current Visit: Yes Status: Acute Code(s): R78.81 - BACTEREMIA SNOMED Code(s): 802675362 Plan: 1patient presented to hospital increasing swelling redness of the lower extremity thigh concerning for cellulitis did have elevated white count with diffuse swelling redness more likely from gram-positive skin aimee less likely gram-negative infection 2--positive blood culture with Streptococcus hemolyticus more likely skin contamination however could be related to the cellulitis received-improvement repeat blood culture currently pending 4-patient to continue with cefazolin 2 g every 8 hours while waiting for repeat culture to finalize Dictation was produced using [email or web address] dictation software. please excuse any gra mmatical, word or spelling errors. Time with Patient: Less than 30
[2023-08-21 16:52] LABS: Glucose,Whole Blood 213 mg/dL (70-110)
[2023-08-21 20:33] LABS: Glucose,Whole Blood 197 mg/dL (70-110)
[2023-08-22 06:13] LABS: Glucose,Whole Blood 165 mg/dL (70-110)
[2023-08-22 08:40] LABS: HCT 34.7 % (39.6-50.0); HGB 11.1 g/dL (13.0-17.0); MCH 29.3 pg (27.0-32.0); MCV 91.6 FL (80.0-97.0); Mean Platelet Volume 11.9 FL (9.5-12.2); NRBC Per 100 WBC 0 X 10*3/uL (0.00-0.01); Platelet Count 199 X 10*3/uL (140-440); RBC 3.79 X 10*6/uL (4.40-5.60); RDW 15.9 % (11.5-14.5); WBC 9.46 X 10*3/uL (4.50-10.00)
[2023-08-22 08:54] LABS: BUN/Creat Ratio 19.62 Ratio (12.00-20.00); Blood Urea Nitrogen 25.5 mg/dL (9.0-27.0); Calcium 8.6 mg/dL (8.7-10.3); Carbon Dioxide 28.8 mmol/L (21.6-31.8); Chloride 99 mmol/L (96-109); Glucose 138 mg/dL (70-110); Potassium 3.5 mmol/L (3.5-5.5); Sodium 137 mmol/L (135-145)
[2023-08-22 11:27] LABS: Glucose,Whole Blood 188 mg/dL (70-110)
--- NOTE | 2023-08-22 11:46 | P.PN ---
Subjective Patient is seen for follow-up for acute kidney injury. No significant complaints today. Serum creatinine at 1.3 today. Good urine output with indwelling Aguero catheter. Objective - Vital Signs Vital signs: Vital Signs Temp 98.0 F 08/22/23 07:23 Pulse 64 08/22/23 08:20 Resp 17 08/22/23 08:20 BP 107/70 08/22/23 07:23 Pulse Ox 100 08/22/23 09:19 FiO2 Intake & Output 08/21/23 08/22/23 08/22/23 18:59 06:59 18:59 Output Total 1950 1600 Balance -1950 -1599 Output: Urine 1949 1600 Other: Voiding Method Indwelling Catheter Indwelling Catheter - Exam Patient is awake, comfortable, no acute distress Examination of the heart S1 and S2 Examination of the lungs bilateral breath sounds are heard Abdomen is soft nontender Examination of lower extremities shows no evidence of edema. BIOLOGICAL CHEMIST exam grossly intact - Labs CBC & Chem 7: 08/22/23 05:32 08/22/23 05:32 Labs: Abnormal Lab Results - Last 24 Hours (Table) 08/21/23 08/21/23 08/21/23 Range/Units 11:42 16:52 20:31 RBC (4.40-5.60) X 10*6/uL Hgb (13.0-17.0) g/dL Hct (39.6-50.0) % RDW (11.5-14.5) % Est GFR (CKD-EPI) (>=60) Glucose (70-110) mg/dL POC Glucose (mg/dL) 161 H 213 H 197 H (70-110) mg/dL Calcium (8.7-10.3) mg/dL 08/22/23 08/22/23 08/22/23 Range/Units 05:32 05:32 06:12 RBC 3.79 L (4.40-5.60) X 10*6/uL Hgb 11.1 L (13.0-17.0) g/dL Hct 34.7 L (39.6-50.0) % RDW 15.9 H (11.5-14.5) % Est GFR (CKD-EPI) 56 L (>=60) Glucose 138 H (70-110) mg/dL POC Glucose (mg/dL) 165 H (70-110) mg/dL Calcium 8.6 L (8.7-10.3) mg/dL 08/22/23 Range/Units 11:25 RBC (4.40-5.60) X 10*6/uL Hgb (13.0-17.0) g/dL Hct (39.6-50.0) % RDW (11.5-14.5) % Est GFR (CKD-EPI) (>=60) Glucose (70-110) mg/dL POC Glucose (mg/dL) 188 H (70-110) mg/dL Calcium (8.7-10.3) mg/dL Microbiology - Last 24 Hours (Table) 08/20/23 07:20 Blood Culture - Preliminary Blood 08/18/23 15:50 Blood Culture Gram Stain - Final Blood Blood Culture - Final Staphylococcus haemolyticus 08/18/23 15:35 Blood Culture Gram Stain - Final Blood Blood Culture - Final Staphylococcus haemolyticus Assessment and Plan Assessment: 1. Non-oliguric JS likely prerenal along with urinary retention. Presented creatinine 2.3, now back at baseline 1.3 with IVF and s/p Aguero. UA positive for hyaline casts. Urine output 2.1L past 24 hours. 2. Hypokalemia related to diuresis. 3. CKD Stage 3b, baseline creatinine 1.1-1.3 mg/dL 4. Bilateral LE Cellulitis 5. Urinary retention 6. HTN with CKD Plan: Continue with Aguero catheter Continue Flomax Okay for discharge from nephrology standpoint and follow-up as outpatient with urology
[2023-08-22 16:26] LABS: Glucose,Whole Blood 164 mg/dL (70-110)
--- NOTE | 2023-08-22 17:46 | P.PN ---
Subjective Progress Note Date: 08/22/23 Principal diagnosis: Reason for follow-up is a bilateral lower extremity cellulitis and positive blood culture Patient is a 77-year-old male with a past medical history significant for diabetes mellitus hyperlipidemia memory impairment reflux atrial fibrillation [facility] patient has been sent to the ER concerning for cellulitis involving his inner thighs lower back and buttock area. On today's evaluation that is 08/22/2023, Patient is afebrile patient is currently on 2 L nasal cannula oxygen and denies having any shortness of breath, the patient denies any chest pain or cough, the patient denies any nausea vomiting did not have any abdominal pain and no diarrhea discomfort to the thigh and has improved. Patient white count normalized to 9.46, creatinine is 1.3 blood culture repeat so far negative Objective - Vital Signs Vital signs: Vital Signs Temp 98.0 F 08/22/23 07:23 Pulse 64 08/22/23 08:20 Resp 17 08/22/23 08:20 BP 107/70 08/22/23 07:23 Pulse Ox 100 08/22/23 09:19 FiO2 Intake & Output 08/21/23 08/22/23 08/22/23 18:59 06:59 18:59 Output Total 1950 1600 Balance -1950 -1600 Output: Urine 1950 1600 Other: Voiding Method Indwelling Catheter Indwelling Catheter - Exam GENERAL DESCRIPTION: An elderly male lying in bed in no distress RESPIRATORY SYSTEM: Unlabored breathing , decreased breath sounds at bases HEART: S1 S2 regular rate and rhythm , ABDOMEN: Soft , no tenderness EXTREMITIES: Bilateral thigh area did have some swelling redness has decreased no open wound or drainage - Labs CBC & Chem 7: 08/22/23 05:32 08/22/23 05:32 Labs: Abnormal Lab Results - Last 24 Hours (Table) 08/21/23 08/21/23 08/22/23 Range/Units 16:52 20:31 05:32 RBC 3.79 L (4.40-5.60) X 10*6/uL Hgb 11.1 L (13.0-17.0) g/dL Hct 34.7 L (39.6-50.0) % RDW 15.9 H (11.5-14.5) % Est GFR (CKD-EPI) (>=60) Glucose (70-110) mg/dL POC Glucose (mg/dL) 213 H 197 H (70-110) mg/dL Calcium (8.7-10.3) mg/dL 08/22/23 08/22/23 08/22/23 Range/Units 05:32 06:12 11:25 RBC (4.40-5.60) X 10*6/uL Hgb (13.0-17.0) g/dL Hct (39.6-50.0) % RDW (11.5-14.5) % Est GFR (CKD-EPI) 56 L (>=60) Glucose 138 H (70-110) mg/dL POC Glucose (mg/dL) 165 H 188 H (70-110) mg/dL Calcium 8.6 L (8.7-10.3) mg/dL Microbiology - Last 24 Hours (Table) 08/20/23 07:20 Blood Culture - Preliminary Blood 08/18/23 15:50 Blood Culture Gram Stain - Final Blood Blood Culture - Final Staphylococcus haemolyticus 08/18/23 15:35 Blood Culture Gram Stain - Final Blood Blood Culture - Final Staphylococcus haemolyticus Assessment and Plan (1) Bilateral lower leg cellulitis Current Visit: Yes Status: Acute Code(s): L03.116 - CELLULITIS OF LEFT LOWER LIMB; L03.115 - CELLULITIS OF RIGHT LOWER LIMB SNOMED Code(s): 910405220 (2) Positive blood culture Current Visit: Yes Status: Acute Code(s): R78.81 - BACTEREMIA SNOMED Code(s): 307664231 Plan: 1patient presented to hospital increasing swelling redness of the lower extremity thigh concerning for cellulitis did have elevated white count with diffuse swelling redness more likely from gram-positive skin aimee less likely gram-negative infection 2--positive blood culture with Streptococcus hemolyticus more likely skin conta mination however could be related to the cellulitis received-improvement repeat blood culture currently pending 4-patient to continue with cefazolin 2 g every 8 hours however the patient be able to finish therapy with oral Keflex 500 mg 3 times daily for 10 days on discharge, discussed with [employer] for admitting team Dictation was produced using [employer] dictation software. please excuse any grammatical, word or spelling errors. Time with Patient: Less than 30
[2023-08-22 20:45] LABS: Glucose,Whole Blood 181 mg/dL (70-110)
[2023-08-23 05:48] LABS: Glucose,Whole Blood 129 mg/dL (70-110)
--- NOTE | 2023-08-23 07:37 | P.PN ---
Subjective Progress Note Date: 08/22/23 * 77-year-old gentleman with past medical his significant for dementia, CHF, diabetes mellitus, hypertension, presented to the ER for evaluation for redness of his thighs. * Patient is currently resident of a [facility] facility, nursing staff are concerned that the patient has increased redness of his thighs and back. Patient normally bedbound does not ambulate. * There was concern the patient had cellulitis and patient seen 1 g of Rocephin in the [facility] and was sent to the ER for further evaluation * Initial lab work done in the ER showed WBC 26.5, hemoglobin 12.5, platelet count 213 sodium 140, potassium 4.1, BUN 41, creatinine 2.33, plasma lactate 2.5 * EKG done in the ER showed heart rate of 94, irregular in rhythm, no ST segment elevation or depression seen, no T-wave inversions seen. * Chest x-ray done in the ER low lung volumes and mild cardiomegaly, no acute pulm infiltrate seen * 08/20/2023: Patient seen and evaluated bedside, patient being treated for congestive heart failure, left thigh cellulitis white cell count trending down 11k from 26,000 from admission. Creatinine 1.32, patient states he feels better * 08/21/2023: Patient seen and evaluated bedside, on evaluation patient is awake and alert, continue patient on IV antibiotic,. Blood work reviewed, WBC trending down, blood cultures show Staphylococcus hemolyticus. Continue patient on IV Ancef follow-up on blood work will need discharge to rehab 08/22/2023 Patient is seen and evaluated in follow-up today with infectious disease following. Patient is maintained on antibiotics and will likely transition to oral antibiotics. Blood cultures were positive likely contaminant with repeat blood cultures being negative. Continue with local wound care. Plan is for patient to return to [facility] where he resides. Patient is currently at [facility]. Patient is afebrile with no reports of chest pain or shortness of breath. Patient is tolerating diet with no reported nausea or vomiting. Patient evaluated by nephrology recommended to continue with current medications and outpatient follow-up. Kidney function stable. Review of systems: Constitutional: No reports of fatigue, fever, or chills Cardiovascular: No reports of chest pain or palpitations Respiratory: No reports of shortness of breath or cough GI: No reports of nausea, vomiting, or diarrhea : No reports of dysuria or retention Neurovascular: reports of chronic generalized weakness All medications have been reviewed PHYSICAL EXAMINATION: GENERAL: The patient is alert , not in any acute distress. Chronically ill looking, obese HEENT: Pupils are round and equally reacting to light. EOMI. CARDIOVASCULAR: S1 and S2 present. No murmurs, rubs, or gallops. PULMONARY: Chest is clear to auscultation, no wheezing or crackles. ABDOMEN: Soft, nontender, nondistended, normoactive bowel sounds. No palpable organomegaly. MUSCULOSKELETAL: No joint swelling or deformity. EXTREMITIES: No cyanosis, clubbing, lower extremity bilateral edema NEUROLOGICAL: Baseline dementia, residual right-sided weakness SKIN: No rashes. Assessment: * Left thigh cellulitis * Coagulase-negative Staph bacteremia likely contaminant, repeat blood cultures are negative * Sepsis secondary to cellulitis * Acute kidney injury on chronic kidney disease, improving * History of atrial fibrillation on Eliquis * Chronic congestive heart failure diastolic dysfunction, not in exacerbation * History of CVA with right-sided hemiparesis * Coronary artery disease * Diabetes mellitus with diabetic neuropathy * History of sacral decub ulcer * Morbid obesity Plan: * In regards to sepsis and cellulitis continue patient on IV antibiotic patient receiving IV Ancef infectious disease following and repeat blood cultures are negative and will continue with oral antibiotics on discharge * Blood cultures with coagulase-negative staph. Likely contaminant and repeat blood cultures have been negative * Regards to JS avoid nephrotoxic medications. Continue current dose of Bumex. Patient was evaluated by nephrology recommending to continue with current medication regimen and outpatient follow-up * Patient was evaluated by speech therapy evaluation recommending to continue with dysphagia 3 chopped diet and aspiration precautions. Patient's head of the bed to remain elevated 30 to 45 degrees at all times * Case management following as patient will be returning to [facility] on discharge * Due to multiple complex medical issues, prognosis is guarded * Probable discharge in 24 hours The impression and plan of care has been dictated by Yaritza Roberto, Nurse Practitioner as directed. Dr. Hien MD I have performed a history and examination and MDM of this patient, discussed the same with the dictator, and agree with the dictator's assessment and plan as written ,documented as a scribe. Based on total visit time, I have performed more than 50% of the visit. Objective - Vital Signs Vital signs: Vital Signs Temp 98.2 F 08/22/23 13:33 Pulse 74 08/22/23 13:33 Resp 18 08/22/23 13:33 BP 127/72 08/22/23 13:33 Pulse Ox 97 08/22/23 13:33 FiO2 Intake & Output 08/21/23 08/22/23 08/22/23 18:59 06:59 18:59 Output Total 1950 2400 Balance -1950 -2400 Output: Urine 1950 2400 Other: Voiding Method Indwelling Catheter Indwelling Catheter - Labs CBC & Chem 7: 08/22/23 05:32 08/22/23 05:32 Labs: Abnormal Lab Results - Last 24 Hours (Table) 08/21/23 08/21/23 08/22/23 Range/Units 16:52 20:31 05:32 RBC 3.79 L (4.40-5.60) X 10*6/uL Hgb 11.1 L (13.0-17.0) g/dL Hct 34.7 L (39.6-50.0) % RDW 15.9 H (11.5-14.5) % Est GFR (CKD-EPI) (>=60) Glucose (70-110) mg/dL POC Glucose (mg/dL) 213 H 197 H (70-110) mg/dL Calcium (8.7-10.3) mg/dL 08/22/23 08/22/23 08/22/23 Range/Units 05:32 06:12 11:25 RBC (4.40-5.60) X 10*6/uL Hgb (13.0-17.0) g/dL Hct (39.6-50.0) % RDW (11.5-14.5) % Est GFR (CKD-EPI) 56 L (>=60) Glucose 138 H (70-110) mg/dL POC Glucose (mg/dL) 165 H 188 H (70-110) mg/dL Calcium 8.6 L (8.7-10.3) mg/dL Microbiology - Last 24 Hours (Table) 08/20/23 07:20 Blood Culture - Preliminary Blood
[2023-08-23 07:50] VITALS: BP 145/82; PULSE 80; RESP 19; TEMP 97.8
--- NOTE | 2023-08-23 11:55 | P.PN ---
Subjective Patient is seen for follow-up for acute kidney injury. No significant complaints today. Serum creatinine at 1.3 yesterday. Good urine output with indwelling Aguero catheter. Objective - Vital Signs Vital signs: Vital Signs Temp 97.8 F 08/23/23 07:05 Pulse 80 08/23/23 07:05 Resp 19 08/23/23 07:05 BP 145/82 08/23/23 07:05 Pulse Ox 99 08/23/23 07:05 FiO2 Intake & Output 08/22/23 08/23/23 08/23/23 18:59 06:59 18:59 Output Total 2400 900 Balance -2400 -900 Output: Urine 2400 900 Other: Voiding Method Indwelling Catheter Indwelling Catheter Indwelling Catheter - Exam Patient is awake, comfortable, no acute distress Examination of the heart S1 and S2 Examination of the lungs bilateral breath sounds are heard Abdomen is soft nontender Examination of lower extremities shows no evidence of edema. RANCH HAND exam grossly intact - Labs CBC & Chem 7: 08/22/23 05:32 08/22/23 05:32 Labs: Abnormal Lab Results - Last 24 Hours (Table) 08/22/23 08/22/23 08/23/23 Range/Units 16:25 20:19 05:47 POC Glucose (mg/dL) 164 H 181 H 129 H (70-110) mg/dL Microbiology - Last 24 Hours (Table) 08/20/23 07:20 Blood Culture - Preliminary Blood Assessment and Plan Assessment: 1. Non-oliguric JS likely prerenal along with urinary retention. Presented creatinine 2.3, now back at baseline 1.3 with IVF and s/p Aguero. UA positive for hyaline casts. Urine output 2.1L past 24 hours. 2. Hypokalemia related to diuresis. 3. CKD Stage 3b, baseline creatinine 1.1-1.3 mg/dL 4. Bilateral LE Cellulitis 5. Urinary retention 6. HTN with CKD Plan: Continue with Aguero catheter Continue Flomax Okay for discharge from nephrology standpoint and follow-up as outpatient with urology
[2023-08-23 11:59] LABS: Glucose,Whole Blood 163 mg/dL (70-110)
--- NOTE | 2023-08-23 12:22 | P.DS ---
Providers Date of admission: 08/22/23 09:39 Expected date of discharge: 08/23/23 Attending physician: Meli Stanford Consults: 08/18/23 16:36 Consult Physician Urgent Consulting Provider: Charlene Colin Consult Reason/Comments: Cellulitis Do you want consulting provider notified?: Yes 08/19/23 10:36 Consult Physician Routine Consulting Provider: Paulino Cadet Consult Reason/Comments: Bashir Do you want consulting provider notified?: Yes Primary care physician: Nabila Chowdhury, DO Hospital Course: Final diagnosis Left thigh cellulitis, present on admission Coagulase-negative Staph bacteremia likely contaminant, repeat blood cultures are negative Sepsis secondary to cellulitis Acute kidney injury on chronic kidney disease, improving History of atrial fibrillation on Eliquis Chronic congestive heart failure diastolic dysfunction, not in exacerbation History of CVA with right-sided hemiparesis Coronary artery disease Diabetes mellitus with diabetic neuropathy History of sacral decub ulcer Morbid obesity GI prophylaxis DVT prophylaxis Full code Discharge disposition Patient is being discharged in a stable condition with guarded prognosis to [facility]. Patient will follow-up with Dr. Chowdhury in the outpatient setting upon discharge. Patient is to continue with oral Keflex 500 mg 3 times daily for the next 10 days per ID recommendations. Recommend outpatient follow- up with nephrology and infectious disease as scheduled. Repeat labs of CBC, BMP, magnesium in 2 to 3 days. Total time taken is greater than 35 minutes. Hospital course This is a 77-year-old male who was recently admitted with bilateral lower extremity concerns of cellulitis with left thigh cellulitis, present on admission. Patient also noted to have positive blood cultures although resulted as coag negative staph likely contaminant as repeat cultures are negative. Infectious disease following and patient is maintained on IV cefazolin showing clinical improvement and will continue on oral Keflex 500 mg 3 times daily for the next 10 days to complete the course. Patient also evaluated by nephrology with acute kidney injury on top of chronic kidney and functions are stable recommending to continue with indwelling Aguero catheter, continue Flomax and outpatient labs with outpatient follow-up. Patient has been cleared by consultations for discharge to [facility] where he resides. Please refer to other consultation notes for further HPI. Currently no reports of chest pain, shortness of breath, or palpitations. Patient is afebrile. No reports of nausea or vomiting and patient is tolerating diet. Recommend aspiration precautions and supervision with meals with head of the bed elevated 30 to 45 degrees at all times. Patient to continue with dysphagia 3 chopped diabetic diet. Patient will be discharged to [facility] today. Guarded prognosis and high risk for readmissions given patient's significant comorbidities Physical exam: Gen: This is a 77-year-old male who is awake, alert and oriented x 1-2, baseline, well-developed, elderly appearing, ill-appearing, obese HEENT: Head is atraumatic, normocephalic. Pupils equal, round. Sclerae is anicteric. NECK: Supple. No JVD. No lymphadenopathy. No thyromegaly. LUNGS: Diminished breath sounds bilaterally otherwise clear to auscultation. No wheezes, some coarse rhonchi noted. No intercostal retractions. HEART: S1, S2 are muffled ABDOMEN: Soft. Obese, protuberant bowel sounds are present. No masses. No tenderness. EXTREMITIES: Generalized bilateral lower extremity edema and pedal edema noted. Nonpitting. No calf tenderness. NEUROLOGICAL: Patient is awake, alert and oriented x2. Cranial nerves 2 through 12 are grossly intact. Diffusely weak Please refer to medication reconciliation sheet for a list of medications. The impression and plan of care has been dictated by Yaritza Roberto, Nurse Practitioner as directed. Dr. Hien MD I have performed a history and examination and MDM of this patient, discussed the same with the dictator, and agree with the dictator's assessment and plan as written ,documented as a scribe. Based on total visit time, I have performed more than 50% of the visit. Patient Condition at Discharge: Fair Plan - Discharge Summary Discharge Rx Participant: No New Discharge Prescriptions: New Cephalexin [Keflex] 500 mg PO Q8HR 10 Days #30 cap Continue Cholecalciferol [Vitamin D3 (25 Mcg = 1000 Iu)] 25 mcg PO DAILY@0600 polyethylene glycoL 3350 [Miralax] 17 gm PO DAILY PARoxetine [Paxil] 10 mg PO HS@2000 Tamsulosin [Flomax] 0.4 mg PO HS@2000 Nitroglycerin Sl Tabs [Nitrostat] 0.4 mg SL Q5M PRN PRN Reason: Chest Pain Apixaban [Eliquis] 5 mg PO BID Multivitamins, Thera [Multivitamin (formulary)] 1 tab PO DAILY Docusate [Colace] 100 mg PO HS@1999 Menthol [Biofreeze] 1 applic TOPICAL QID@,,, Menthol [Biofreeze] 1 applic TOPICAL Q8H PRN PRN Reason: left knee pain Lansoprazole 15 mg PO DAILY Potassium Chloride ER [K-Dur 10] 10 meq PO BID Ibuprofen [Motrin Ib] 400 mg PO Q6H PRN PRN Reason: Fever HYDROcodone/APAP 5-325MG [Goodspring 5-325] 1 tab PO QID@,,, 3 Days #8 tab Primidone [Mysoline] 50 mg PO HS@1999 Atorvastatin [Lipitor] 40 mg PO HS@1999 Isosorbide Mononitrate ER [Imdur] 30 mg PO DAILY #30 tab Acetaminophen Tab [Tylenol] 1,000 mg PO BID PRN PRN Reason: Pain Ranolazine [Ranexa] 500 mg PO BID@0700,1900 Bumetanide [BUMEX] 2 mg PO BID Metoprolol Tartrate [Lopressor] 25 mg PO BID@0700,1900 glipiZIDE [Glucotrol] 10 mg PO DAILY glipiZIDE [Glucotrol] 5 mg PO HS Baclofen 10 mg PO TID@0700,1300,1900 3 Days #9 tab Latanoprost [Latanoprost 0.005%] 1 drop LEFT EYE HS Naloxone HCl 0.4 mg SQ ONCE PRN PRN Reason: OVERDOSE Naloxone HCl [Narcan] 4 mg NASAL DIRECTED PRN PRN Reason: OVERDOSE Gabapentin [Neurontin] 400 mg PO TID@0700,1300,1900 3 Days #6 cap Discontinued Doxycycline Hyclate 100 mg PO BID cefTRIAXone [Rocephin] 1 gm IM ONCE Discharge Medication List Cholecalciferol [Vitamin D3 (25 Mcg = 1000 Iu)] 25 mcg PO DAILY@0601/17/22 [History] PARoxetine [Paxil] 10 mg PO HS@199901/17/22 [History] Primidone [Mysoline] 50 mg PO HS@199901/17/22 [History] Tamsulosin [Flomax] 0.4 mg PO HS@199901/17/22 [History] polyethylene glycoL 3350 [Miralax] 17 gm PO DAILY 01/17/22 [History] Atorvastatin [Lipitor] 40 mg PO HS@199903/01/22 [History] Nitroglycerin Sl Tabs [Nitrostat] 0.4 mg SL Q5M PRN 03/01/22 [History] Apixaban [Eliquis] 5 mg PO BID 08/04/22 [History] Multivitamins, Thera [Multivitamin (formulary)] 1 tab PO DAILY 08/04/22 [History] Isosorbide Mononitrate ER [Imdur] 30 mg PO DAILY #30 tab 08/12/22 [Rx] Acetaminophen Tab [Tylenol] 1,000 mg PO BID PRN 09/07/22 [History] Docusate [Colace] 100 mg PO HS@199909/07/22 [History] Ranolazine [Ranexa] 500 mg PO BID@0700,1900 09/07/22 [History] Bumetanide [BUMEX] 2 mg PO BID 01/06/23 [History] Menthol [Biofreeze] 1 applic TOPICAL Q8H PRN 01/06/23 [History] Menthol [Biofreeze] 1 applic TOPICAL QID@05,11,17,23 01/06/23 [History] Metoprolol Tartrate [Lopressor] 25 mg PO BID@0700,1900 01/06/23 [History] glipiZIDE [Glucotrol] 5 mg PO HS 01/21/23 [History] glipiZIDE [Glucotrol] 10 mg PO DAILY 01/21/23 [History] Baclofen 10 mg PO TID@0700,1300,1900 3 Days #9 tab 01/25/23 [Rx] Lansoprazole 15 mg PO DAILY 06/06/23 [History] Latanoprost [Latanoprost 0.005%] 1 drop LEFT EYE HS 06/06/23 [History] Potassium Chloride ER [K-Dur 10] 10 meq PO BID 06/06/23 [History] Ibuprofen [Motrin Ib] 400 mg PO Q6H PRN 08/18/23 [History] Naloxone HCl 0.4 mg SQ ONCE PRN 08/18/23 [History] Naloxone HCl [Narcan] 4 mg NASAL DIRECTED PRN 08/18/23 [History] Cephalexin [Keflex] 500 mg PO Q8HR 10 Days #30 cap 08/23/23 [Rx] Gabapentin [Neurontin] 400 mg PO TID@0700,1300,1900 3 Days #6 cap 08/23/23 [Rx] HYDROcodone/APAP 5-325MG [Goodspring 5-325] 1 tab PO QID@05,11,17,23 3 Days #8 tab 08/23/23 [Rx] Follow up Appointment(s)/Referral(s): Nabila Chowdhury DO [Primary Care Provider] - 1-2 days Charlene Colin MD [STAFF PHYSICIAN] - 1 Week Activity/Diet/Wound Care/Special Instructions: [facility] as tolerated Continue with diabetic heart healthy diet Patient will continue on Keflex 500 mg 3 times daily for the next 10 days per ID recommendations Continue with local wound care Patient to continue with zinc paste to the buttocks twice daily or if becoming soiled Repeat labs of CBC, BMP, magnesium in 2 to 3 days
--- NOTE | 2023-08-23 14:37 | P.PN ---
Subjective Progress Note Date: 08/23/23 Principal diagnosis: Reason for follow-up is a bilateral lower extremity cellulitis and positive blood culture Patient is a 77-year-old male with a past medical history significant for diabetes mellitus hyperlipidemia memory impairment reflux atrial fibrillation [facility] patient has been sent to the ER concerning for cellulitis involving his inner thighs lower back and buttock area. On today's evaluation that is 08/23/2023, patient has been afebrile, patient is breathing comfortably and is currently on 3 L nasal cannula oxygen, patient d enies having any significant cough no chest pain shortness of breath, patient denies nausea vomiting or diarrhea and no abdominal pain, pain and swelling to the left thigh has decreased. No new labs has been repeated today white was normal at 9.46 yesterday blood culture repeat so far negative Objective - Vital Signs Vital signs: Vital Signs Temp 97.8 F 08/23/23 07:05 Pulse 80 08/23/23 07:05 Resp 19 08/23/23 07:05 BP 145/82 08/23/23 07:05 Pulse Ox 99 08/23/23 07:05 FiO2 Intake & Output 08/22/23 08/23/23 08/23/23 18:59 06:59 18:59 Output Total 2400 900 Balance -2400 -900 Output: Urine 2400 900 Other: Voiding Method Indwelling Catheter Indwelling Catheter Indwelling Catheter - Exam GENERAL DESCRIPTION: An elderly male lying in bed in no distress RESPIRATORY SYSTEM: Unlabored breathing , decreased breath sounds at bases HEART: S1 S2 regular rate and rhythm , ABDOMEN: Soft , no tenderness EXTREMITIES: Bilateral thigh area did have some swelling redness has improved no drainage - Labs CBC & Chem 7: 08/22/23 05:32 08/22/23 05:32 Labs: Abnormal Lab Results - Last 24 Hours (Table) 08/22/23 08/22/23 08/23/23 Range/Units 16:25 20:19 05:47 POC Glucose (mg/dL) 164 H 181 H 129 H (70-110) mg/dL 08/23/23 Range/Units 11:58 POC Glucose (mg/dL) 163 H (70-110) mg/dL Microbiology - Last 24 Hours (Table) 08/20/23 07:20 Blood Culture - Preliminary Blood Assessment and Plan (1) Bilateral lower leg cellulitis Status: Acute Code(s): L03.116 - CELLULITIS OF LEFT LOWER LIMB; L03.115 - CELLULITIS OF RIGHT LOWER LIMB SNOMED Code(s): 416625794 (2) Positive blood culture Status: Acute Code(s): R78.81 - BACTEREMIA SNOMED Code(s): 721104041 Plan: 1patient presented to hospital increasing swelling redness of the lower extremity thigh concerning for cellulitis did have elevated white count with diffuse swelling redness more likely from gram-positive skin aimee less likely gram-negative infection 2--positive blood culture with Streptococcus hemolyticus more likely skin contamination however could be related to the cellulitis received-improvement repeat blood culture currently pending 4-patient has shown improvement white count has normalized repeat blood culture negative plan is to finish therapy with oral Keflex 500 mg 3 times daily for 10 days on discharge," outpatient follow-up Dictation was produced using [employer] dictation software. please excuse any grammatical, word or spelling errors. Time with Patient: Less than 30
== END 2023-08-23 14:27 | DRG 872 ==
LOC: EC 13:50 → 4SSUR 17:20 → OBSVTOIN 08-22 09:39
PROVIDERS: ADMIT Internal Medicine; ATTEND Internal Medicine
DX: A41.9 Sepsis, unspecified organism (principal); N17.9 Acute kidney failure, unspecified; I13.0 Hypertensive heart and chronic kidney disease with heart failure and stage 1 through stage 4 chronic kidney disease, or unspecified chronic kidney disease; I69.351 Hemiplegia and hemiparesis following cerebral infarction affecting right dominant side; I50.32 Chronic diastolic (congestive) heart failure; L03.115 Cellulitis of right lower limb; L03.317 Cellulitis of buttock; L03.116 Cellulitis of left lower limb; F03.93 Unspecified dementia, unspecified severity, with mood disturbance; E11.22 Type 2 diabetes mellitus with diabetic chronic kidney disease; E11.42 Type 2 diabetes mellitus with diabetic polyneuropathy; N18.32 Chronic kidney disease, stage 3b; I48.91 Unspecified atrial fibrillation; E66.01 Morbid (severe) obesity due to excess calories; Z68.39 Body mass index [BMI] 39.0-39.9, adult; N40.1 Benign prostatic hyperplasia with lower urinary tract symptoms; R33.8 Other retention of urine; G89.29 Other chronic pain; M54.50 Low back pain, unspecified; G47.30 Sleep apnea, unspecified; K21.9 Gastro-esophageal reflux disease without esophagitis; E78.5 Hyperlipidemia, unspecified; E87.6 Hypokalemia; I25.10 Atherosclerotic heart disease of native coronary artery without angina pectoris; R13.10 Dysphagia, unspecified; G47.00 Insomnia, unspecified; Z79.01 Long term (current) use of anticoagulants; Z79.84 Long term (current) use of oral hypoglycemic drugs; Z79.891 Long term (current) use of opiate analgesic; Z79.899 Other long term (current) drug therapy; Z74.01 Bed confinement status
CPT/HCPCS: 36415; 71045; 76770; 80048; 80053; 81001; 82565; 82570; 83036; 83605; 83930; 83935; 85025; 85027; 85610; 85730; 86140; 87040; 87077; 87186; 87205; 93005; 94760; 96361; 96365; 96366; 96368; 99285

== ENCOUNTER 2023-11-13 17:31 | Observation (INO) | payer MEDICARE, OTHER ==
[2023-11-13 18:18] LABS: Anisocytosis Slight; Basophils % (A) 0 %; Eosinophils # (A) 0.2 k/uL (0-0.7); Eosinophils % (A) 3 %; HCT 35.1 % (39.0-53.0); HGB 11.3 gm/dL (13.0-17.5); Lymphocytes # (A) 1.4 k/uL (1.0-4.8); Lymphocytes % (A) 23 %; MCHC 32.1 g/dL (31.0-37.0); MCV 93.5 fL (80.0-100.0); Mean Platelet Volume 9.6; Monocytes # (A) 0.4 k/uL (0-1.0); Monocytes % (A) 7 %; Neutrophils # (A) 3.9 k/uL (1.3-7.7); Neutrophils % (A) 64 %; Platelet Count 184 k/uL (150-450); RBC 3.75 m/uL (4.30-5.90); RDW 16.3 % (11.5-15.5)
[2023-11-13 20:08] LABS: Anion Gap 9 mmol/L; Blood Urea Nitrogen 18 mg/dL (9-20); Carbon Dioxide 25 mmol/L (22-30); Chloride 102 mmol/L (98-107); Glucose 50 mg/dL (74-99); Sodium 136 mmol/L (137-145)
[2023-11-13 20:09] LABS: African American GFR (CKD) 67 (>60 ml/min/1.73 sqM); Calcium 8.4 mg/dL (8.4-10.2); Non-African American GFR(CKD) 58 (>60 ml/min/1.73 sqM)
[2023-11-13 20:44] LABS: Potassium 3.9 mmol/L (3.5-5.1)
[2023-11-13] MEDS: DEXTROSE 50% SYRINGE 50 ML IVP STA (21:32)
--- NOTE | 2023-11-13 22:07 | CT ---
EXAMINATION TYPE: CT abdomen pelvis wo con CT DLP: 1905.6 mGycm, Automated exposure control for dose reduction was used. DATE OF EXAM: 11/13/2023 6:20 PM COMPARISON: None. CLINICAL INDICATION:Male, 77 years old with history of abdominal pain and distension; abdominal pain and distention TECHNIQUE: Axial CT of the abdomen and pelvis. Sagittal and coronal reformats were created on a [employer] workstation. Contrast used: mL of , (none if empty) Oral contrast used: without Oral Contrast (none if empty) FINDINGS: Included lung bases show mild scarring and subsegmental atelectasis. The heart is mildly enlarged. Th ere are moderate to heavy coronary arterial calcifications seen. No pericardial effusion. The liver demonstrates a punctate calcific granuloma in the right lobe. No suspicious findings. Gallb ladder is likely surgically absent and there is a but the density in the gallbladder fossa which coul d relate calcification or postop changes. No biliary dilatation is seen. Fatty infiltration of the pancreas, otherwise unremarkable. No evidence of a splenic abnormality. Adr enals appear somewhat thickened and nodular, activity for adenomatoid changes. No definite renal calculi are seen. There is moderate perinephric stranding bilaterally. I see no amber dence of ureteral dilatation. There is moderate to severe distention of the urinary bladder which is draped anteriorly. The prostat e is not clearly defined but is about 46 x 37 mm. Stomach and small bowel are nondistended there is no evidence of obstruction. Ileocecal junction is i ntact. There are no signs of appendicitis. The right-sided colon contains a moderate amount of stool mixed with gas, this appearance continues to the proximal descending colon region where there appears to be a caliber change, and thereafter there is a large amount of gas and stool in the colon which a ppears presence of level the rectum however appears most prominent in the proximal to mid sigmoid,, w ith the diameter of the stool that is packed colon was about 8.6 cm. There are mild gynecomastia changes bilaterally. No evidence of body wall mass, but there is mild to moderate edema. Moderate multilevel degenerative changes of the lumbar spine, with multilevel anterior more than post erior osteophytes. Underlying dish is possible. No lytic/blastic lesion or fracture. IMPRESSION: 1. Limited unenhanced study. 2. No evidence of urinary tract calculi or obstructive uropathy. 3. Nonspecific perinephric stranding, correlate to exclude infection. 4. Moderate to severe distention of the urinary bladder. Moderate prostatomegaly. 5. Large amount of gas and stool in the distal colon which appears present at the level of the rectum however appears most prominent in the proximal sigmoid. Cause uncertain. 6. Consider colonoscopy. 7. Fatty infiltration of the pancreas, otherwise unremarkable. 8. Adrenals appear somewhat thickened and nodular, correlate for adenomatoid changes.
[2023-11-13 22:15] LABS: Glucose,Whole Blood 117 mg/dL (70-110)
[2023-11-13] MEDS ORDERED: NALOXONE 0.4 MG/ML 1 ML VIAL IV PRN (22:43)
[2023-11-13] MEDS ORDERED: ONDANSETRON 4 MG/2 ML VIAL IVP PRN (22:43)
[2023-11-13] MEDS ORDERED: ACETAMINOPHEN TAB 325 MG TAB PO PRN (22:43)
[2023-11-14] MEDS: SODIUM CHLORIDE 0.9% 1,000 ML IV SCH (00:23)
[2023-11-14 00:32] LABS: Appearance,Urine Clear (Clear); Bilirubin,Urine Negative (Negative); Blood,Urine Negative (Negative); Color,Urine Colorless; Glucose,Urine (UA) Negative (Negative); Ketones,Urine Trace (Negative); Leukocyte Esterase,Urine Negative (Negative); Nitrite,Urine Negative (Negative); Protein,Urine Negative (Negative); Specific Gravity,Urine 1.007 (1.001-1.035); Urobilinogen,Urine <2.0 mg/dL (<2.0)
[2023-11-14] MEDS: MORPHINE SULFATE 2 MG/ML SYRINGE IVP PRN (00:52)
--- NOTE | 2023-11-14 03:48 | ED ---
Abdominal Pain HPI - General Chief Complaint: Abdominal Pain Stated Complaint: Bowel Obstruction Time Seen by Provider: 11/13/23 17:38 Source: patient, EMS Mode of arrival: EMS Limitations: no limitations - History of Present Illness Initial Comments: This patient is a 77-year-old man who is transferred here from [facility] to be evaluated for suspected bowel obstruction. The patient had been complaining of bloating type abdominal pain. He indicates that abdomen diffusely. It has been going on for a number of days. He states that he has n ot had a bowel movement in 5 days now. He had told staff at residential he had not been passing flatus and therefore they had CT scan which was reported to have been nondiagnostic. Patient then did not have bowel movement today so transferred to have further evaluation here. Patient denies vomiting. No fever reported. MD Complaint: abdominal pain -: days(s) Location: diffuse Radiation: none Severity: moderate Quality: cramping, other (Bloating) Consistency: intermittent Improves With: nothing Worsens With: nothing Associated Symptoms: nausea, constipation - Related Data Home Medications Medication Instructions Recorded Confirmed Cholecalciferol [Vitamin D3 (25 25 mcg PO HS 01/17/22 11/13/23 Mcg = 1000 Iu)] PARoxetine [Paxil] 10 mg PO HS 01/17/22 11/13/23 Primidone [Mysoline] 50 mg PO HS 01/17/22 11/13/23 Tamsulosin [Flomax] 0.4 mg PO HS 01/17/22 11/13/23 polyethylene glycoL 3350 [Miralax] 17 gm PO Q2D 01/17/22 11/13/23 Atorvastatin [Lipitor] 40 mg PO HS@199903/01/22 11/13/23 Apixaban [Eliquis] 5 mg PO BID 08/04/22 11/13/23 Multivitamins, Thera [Multivitamin 1 tab PO DAILY 08/04/22 11/13/23 (formulary)] Acetaminophen Tab [Tylenol] 1,000 mg PO Q12H PRN 09/07/22 11/13/23 Docusate [Colace] 100 mg PO BID 09/07/22 11/13/23 Ranolazine [Ranexa] 500 mg PO BID 09/07/22 11/13/23 Bumetanide [BUMEX] 2 mg PO BID 01/06/23 11/13/23 Menthol [Biofreeze] 1 applic TOPICAL Q8H 01/06/23 11/13/23 Metoprolol Tartrate [Lopressor] 25 mg PO BID 01/06/23 11/13/23 glipiZIDE [Glucotrol] 5 mg PO HS 01/21/23 11/13/23 glipiZIDE [Glucotrol] 10 mg PO DAILY 01/21/23 11/13/23 Latanoprost [Latanoprost 0.005%] 1 drop LEFT EYE HS 06/06/23 11/13/23 Potassium Chloride ER [K-Dur 10] 10 meq PO BID 06/06/23 11/13/23 Naloxone HCl 0.4 mg SQ ONCE PRN 08/18/23 11/13/23 Naloxone HCl [Narcan] 4 mg NASAL DIRECTED PRN 08/18/23 11/13/23 Acetaminophen Tab [Tylenol Tab] 1,000 mg PO TID 11/13/23 11/13/23 Esomeprazole Magnesium [NexIUM] 20 mg PO DAILY 11/13/23 11/13/23 Gabapentin [Neurontin] 400 mg PO Q8H 11/13/23 11/13/23 HYDROcodone/APAP 5-325MG [[place] 1 tab PO Q8H PRN 11/13/23 11/13/23 5-325] Isosorbide Dinitrate 30 mg PO DAILY 11/13/23 11/13/23 Metoclopramide [Reglan] 10 mg PO BID 11/13/23 11/13/23 Miconazole Nitrate [Lotrimin AF 1 applic TOPICAL BID 11/13/23 11/13/23 Powder] Sennosides [Senokot] 17.2 mg PO BID 11/13/23 11/13/23 Simethicone Chew [Mylicon Chew] 80 mg PO BID 11/13/23 11/13/23 Vision Vitamin 1 tab PO BID 11/13/23 11/13/23 Previous Rx's Medication Instructions Recorded Baclofen 10 mg PO TID@0700,1300,1900 3 Days 01/25/23 #9 tab Allergies Allergy/AdvReac Type Severity Reaction Status Date / Time No Known Allergies Allergy Verified 11/13/23 19:36 Review of Systems ROS Statement: Those systems with pertinent positive or pertinent negative responses have been documented in the HPI. ROS Other: All systems not noted in ROS Statement are negative. Constitutional: Denies: fever Respiratory: Denies: cough, dyspnea Cardiovascular: Denies: chest pain, palpitations, edema Gastrointestinal: Reports: abdominal pain, nausea, constipation. Denies: vomiting, diarrhea, melena, hematochezia Genitourinary: Denies: dysuria, hematuria Musculoskeletal: Denies: back pain Skin: Denies: rash Neurological: Denies: headache, weakness Past Medical History Past Medical History: Atrial Fibrillation, Chest Pain / Angina, Heart Failure, CVA/TIA, Diabetes Mellitus, GERD/Reflux, Hyperlipidemia, Memory Impairment, Prostate Disorder, Renal Disease, Sleep Apnea/CPAP/BIPAP Additional Past Medical History / Comment(s): 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, Type 2 Diabetes, BPH, Stage 3 chronic kidney disease, CHF, Anemia, insomnia, short term memory History of Any Multi-Drug Resistant Organisms: None Reported Past Surgical History: Appendectomy, Orthopedic Surgery Past Anesthesia/Blood Transfusion Reactions: No Reported Reaction Past Psychological History: No Psychological Hx Reported, Depression Smoking Status: Never smoker Past Alcohol Use History: None Reported Past Drug Use History: None Reported General Exam Limitations: no limitations General appearance: alert, in no apparent distress Head exam: Present: atraumatic, normocephalic Eye exam: Present: normal appearance. Absent: scleral icterus, conjunctival injection ENT exam: Present: normal oropharynx Neck exam: Present: normal inspection Respiratory exam: Present: normal lung sounds bilaterally. Absent: respiratory distress, wheezes, rales, rhonchi, stridor, accessory muscle use Cardiovascular Exam: Present: regular rate, normal rhythm, normal heart sounds. Absent: systolic murmur, diastolic murmur, rubs, gallop GI/Abdominal exam: Present: soft, distended, diminished bowel sounds. Absent: tenderness, guarding, rebound, rigid, mass, pulsatile mass, hernia Rectal exam: Present: normal inspection, normal rectal tone. Absent: fecal impaction, mass, tenderness Extremities exam: Present: normal inspection, normal capillary refill. Absent: pedal edema, calf tenderness Back exam: Present: normal inspection. Absent: CVA tenderness (R), CVA tenderness (L) Neurological exam: Present: alert Skin exam: Present: warm, dry, intact, normal color. Absent: rash Course Vital Signs 11/13/23 11/13/23 11/13/23 17:40 19:56 20:44 Temperature 97.8 F Pulse Rate 75 81 79 Respiratory 18 20 18 Rate Blood Pressure 153/84 178/96 179/102 O2 Sat by Pulse 96 100 96 Oximetry 11/13/23 11/14/23 11/14/23 21:34 00:05 03:05 Temperature 98.1 F Pulse Rate 72 69 95 Respiratory 18 14 16 Rate Blood Pressure 135/92 158/87 130/61 O2 Sat by Pulse 98 93 L Oximetry Medical Decision Making - Medical Decision Making The patient had CT scan of the abdomen and pelvis that I interpreted as not being diagnostic for bowel obstruction. The patient does have air throughout the colon appearing to extend to the rectum. No definite acute surgical condition. Patient is 77-year-old man sent from residential for evaluation of constipation and bloating abdominal pain. The patient with not definite bowel obstruction, but still complaining of intermittent pains. At this point will admit to observation to have surgical consultation. Patient also appears to have some urinary retention and patient to have straight cath the bladder to see if this resolves the inability to pass flatus. - Lab Data Result diagrams: 11/13/23 18:12 11/13/23 19:27 Lab Results 11/13/23 11/13/23 11/13/23 Range/Units 18:12 18:12 18:12 WBC 6.0 (3.8-10.6) k/uL RBC 3.75 L (4.30-5.90) m/uL Hgb 11.3 L (13.0-17.5) gm/dL Hct 35.1 L (39.0-53.0) % MCV 93.5 (80.0-100.0) fL MCH 30.0 (25.0-35.0) pg MCHC 32.1 (31.0-37.0) g/dL RDW 16.3 H (11.5-15.5) % Plt Count 184 (150-450) k/uL MPV 9.6 Neutrophils % 64 % Lymphocytes % 23 % Monocytes % 7 % Eosinophils % 3 % Basophils % 0 % Neutrophils # 3.9 (1.3-7.7) k/uL Lymphocytes # 1.4 (1.0-4.8) k/uL Monocytes # 0.4 (0-1.0) k/uL Eosinophils # 0.2 (0-0.7) k/uL Basophils # 0.0 (0-0.2) k/uL Anisocytosis Slight Sodium (137-145) mmol/L Potassium (3.5-5.1) mmol/L Chloride (98-107) mmol/L Carbon Dioxide (22-30) mmol/L Anion Gap mmol/L BUN (9-20) mg/dL Creatinine (0.66-1.25) mg/dL Est GFR (CKD-EPI)AfAm (>60 ml/min/1.73 sqM) Est GFR (CKD-EPI)NonAf (>60 ml/min/1.73 sqM) Glucose (74-99) mg/dL POC Glucose (mg/dL) (70-110) mg/dL POC Glu Multi Disciplined Language Analyst ID Plasma Lactic Acid Bertram 1.2 (0.7-2.0) mmol/L Calcium (8.4-10.2) mg/dL Stool Occult Blood Negative (Negative) 11/13/23 11/13/23 Range/Units 19:27 22:13 WBC (3.8-10.6) k/uL RBC (4.30-5.90) m/uL Hgb (13.0-17.5) gm/dL Hct (39.0-53.0) % MCV (80.0-100.0) fL MCH (25.0-35.0) pg MCHC (31.0-37.0) g/dL RDW (11.5-15.5) % Plt Count (150-450) k/uL MPV Neutrophils % % Lymphocytes % % Monocytes % % Eosinophils % % Basophils % % Neutrophils # (1.3-7.7) k/uL Lymphocytes # (1.0-4.8) k/uL Monocytes # (0-1.0) k/uL Eosinophils # (0-0.7) k/uL Basophils # (0-0.2) k/uL Anisocytosis Sodium 136 L (137-145) mmol/L Potassium 3.9 (3.5-5.1) mmol/L Chloride 102 (98-107) mmol/L Carbon Dioxide 25 (22-30) mmol/L Anion Gap 9 mmol/L BUN 18 (9-20) mg/dL Creatinine 1.19 (0.66-1.25) mg/dL Est GFR (CKD-EPI)AfAm 67 (>60 ml/min/1.73 sqM) Est GFR (CKD-EPI)NonAf 58 (>60 ml/min/1.73 sqM) Glucose 50 L (74-99) mg/dL POC Glucose (mg/dL) 117 H (70-110) mg/dL POC Glu Multi Disciplined Language Analyst ID Torres pinon Plasma Lactic Acid Bertram (0.7-2.0) mmol/L Calcium 8.4 (8.4-10.2) mg/dL Stool Occult Blood (Negative) Disposition Clinical Impression: Abdominal pain, Hypoglycemia, Urinary retention Disposition: ADMITTED IP TO THIS HOSP Condition: Good
[2023-11-14 06:53] LABS: Glucose,Whole Blood 144 mg/dL (70-110)
[2023-11-14] MEDS: FAMOTIDINE 20 MG TAB PO SCH (09:42)
[2023-11-14] MEDS ORDERED: BACLOFEN 10 MG TAB PO PRN (09:56)
[2023-11-14] MEDS: GABAPENTIN 400 MG CAP PO SCH (10:23)
[2023-11-14] MEDS: APIXABAN 5 MG TAB PO SCH (10:23)
[2023-11-14] MEDS: LACTULOSE 20 GM/30 ML CUP PO SCH (11:51)
--- NOTE | 2023-11-14 11:55 | P.GSCN ---
History of Present Illness Consult date: 11/14/23 History of present illness: CHIEF COMPLAINT: Abdominal pain HISTORY OF PRESENT ILLNESS: This is a 77-year-old male who was transferred from [facility] for abdominal pain and no bowel movement x 5 days. They were initially concerned about a possible bowel obstruction. Patient denies any nausea or vomiting. Denies any flatus. He has had prior abdominal surgeries including appendectomy and cholecystectomy. He has history of stroke and A-fib and is on Eliquis. Last dose of Eliquis yesterday November 12. CT scan abdomen pelvis had reported large gas and stool in the distal colon at the rectum rectum and most prominent in the proximal sigmoid colon. Surgical service consulted in regards to abdominal pain. PAST MEDICAL HISTORY: Atrial Fibrillation, Chest Pain / Angina, Heart Failure, CVA, Diabetes Mellitus, GERD/Reflux, Hyperlipidemia, Memory Impairment, Prostate Disorder, Renal Disease, Sleep Apnea/CPAP/BIPAP, chronic kidney disease PAST SURGICAL HISTORY: Appendectomy and cholecystectomy MEDICATIONS: See below ALLERGIES: See below SOCIAL HISTORY: No illicit drug use. REVIEW OF SYSTEMS: CONSTITUTIONAL: Denies fever or chills. HEENT: Denies blurred vision, vision changes, or eye pain. Denies hemoptysis CARDIOVASCULAR: Denies chest pain or pressure. RESPIRATORY: No shortness of breath. GASTROINTESTINAL: See HPI for pertinent findings HEMATOLOGIC: Denies bleeding disorders. GENITOURINARY: Denies any blood in urine or increased urinary frequency. SKIN: Denies pruitis. Denies rash. PHYSICAL EXAM: VITAL SIGNS: Reviewed GENERAL: Well-developed in no acute distress. HEENT: No sclera icterus. Extraocular movements grossly intact. Moist buccal mucosa. Head is atraumatic, normocephalic. No nasal drainage. ABDOMEN: Soft. Obese. Mildly distended. Nontender NEUROLOGIC: Alert and oriented. Cranial nerves II through XII grossly intact. LABORATORY DATA: WBC 6.0 Hgb 11.3 platelets 184 Sodium is 136 potassium 3.9 creatinine 1.19 Stool for occult blood negative IMAGING: CT scan abdomen and pelvis reports limited unenhanced study. No evidence of urinary tract calculi. Nonspecific perinephric stranding. Moderate to severe distention of the urinary bladder. Moderate prostamegaly. Large amount of gas and stool in the distal colon which appears present at the level of the rectum however appears more prominent in the proximal sigmoid. Fatty filtration of the pancreas. Adrenal appears somewhat thickened and nodular. ASSESSMENT: 1. Abdominal pain 2. Constipation. CT scan reporting large amount of gas and stool in the distal colon which appears present at the level of the rectum and more prominent in the sigmoid colon PLAN: -Lactulose 30 mL 1 every hour x 3 doses and soapsuds enemas ordered -Continue clear liquid diet for now -Continue supportive care Physician Special Shopper note has been reviewed by physician. Signing provider agrees with the documented findings, assessment, and plan of care. Past Medical History Past Medical History: Atrial Fibrillation, Chest Pain / Angina, Heart Failure, CVA/TIA, Diabetes Mellitus, GERD/Reflux, Hyperlipidemia, Memory Impairment, Prostate Disorder, Renal Disease, Sleep Apnea/CPAP/BIPAP Additional Past Medical History / Comment(s): 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, Type 2 Diabetes, BPH, Stage 3 chronic kidney disease, CHF, Anemia, insomnia, short term memory History of Any Multi-Drug Resistant Organisms: None Reported Past Surgical History: Appendectomy, Orthopedic Surgery Past Anesthesia/Blood Transfusion Reactions: No Reported Reaction Past Psychological History: No Psychological Hx Reported, Depression Smoking Status: Never smoker Past Alcohol Use History: None Reported Past Drug Use History: None Reported Medications and Allergies Home Medications Medication Instructions Recorded Confirmed Type Cholecalciferol [Vitamin D3 (25 25 mcg PO HS 01/17/22 11/13/23 History Mcg = 1000 Iu)] PARoxetine [Paxil] 10 mg PO HS 01/17/22 11/13/23 History Primidone [Mysoline] 50 mg PO HS 01/17/22 11/13/23 History Tamsulosin [Flomax] 0.4 mg PO HS 01/17/22 11/13/23 History polyethylene glycoL 3350 [Miralax] 17 gm PO Q2D 01/17/22 11/13/23 History Atorvastatin [Lipitor] 40 mg PO HS@199903/01/22 11/13/23 History Apixaban [Eliquis] 5 mg PO BID 08/04/22 11/13/23 History Multivitamins, Thera [Multivitamin 1 tab PO DAILY 08/04/22 11/13/23 History (formulary)] Acetaminophen Tab [Tylenol] 1,000 mg PO Q12H PRN 09/07/22 11/13/23 History Docusate [Colace] 100 mg PO BID 09/07/22 11/13/23 History Ranolazine [Ranexa] 500 mg PO BID 09/07/22 11/13/23 History Bumetanide [BUMEX] 2 mg PO BID 01/06/23 11/13/23 History Menthol [Biofreeze] 1 applic TOPICAL Q8H 01/06/23 11/13/23 History Metoprolol Tartrate [Lopressor] 25 mg PO BID 01/06/23 11/13/23 History glipiZIDE [Glucotrol] 5 mg PO HS 01/21/23 11/13/23 History glipiZIDE [Glucotrol] 10 mg PO DAILY 01/21/23 11/13/23 History Baclofen 10 mg PO TID@0700,1300,1900 3 Days 01/25/23 11/13/23 Rx #9 tab Latanoprost [Latanoprost 0.005%] 1 drop LEFT EYE HS 06/06/23 11/13/23 History Potassium Chloride ER [K-Dur 10] 10 meq PO BID 06/06/23 11/13/23 History Naloxone HCl 0.4 mg SQ ONCE PRN 08/18/23 11/13/23 History Naloxone HCl [Narcan] 4 mg NASAL DIRECTED PRN 08/18/23 11/13/23 History Acetaminophen Tab [Tylenol Tab] 1,000 mg PO TID 11/13/23 11/13/23 History Esomeprazole Magnesium [NexIUM] 20 mg PO DAILY 11/13/23 11/13/23 History Gabapentin [Neurontin] 400 mg PO Q8H 11/13/23 11/13/23 History HYDROcodone/APAP 5-325MG [[place] 1 tab PO Q8H PRN 11/13/23 11/13/23 History 5-325] Isosorbide Dinitrate 30 mg PO DAILY 11/13/23 11/13/23 History Metoclopramide [Reglan] 10 mg PO BID 11/13/23 11/13/23 History Miconazole Nitrate [Lotrimin AF 1 applic TOPICAL BID 11/13/23 11/13/23 History Powder] Sennosides [Senokot] 17.2 mg PO BID 11/13/23 11/13/23 History Simethicone Chew [Mylicon Chew] 80 mg PO BID 11/13/23 11/13/23 History Vision Vitamin 1 tab PO BID 11/13/23 11/13/23 History Allergies Allergy/AdvReac Type Severity Reaction Status Date / Time No Known Allergies Allergy Verified 11/14/23 07:38 Surgical - Exam Vital Signs Temp Pulse Resp BP Pulse Ox 97.8 F 75 18 153/84 96 11/13/23 17:40 11/13/23 17:40 11/13/23 17:40 11/13/23 17:40 11/13/23 17:40 Results - Labs 11/13/23 18:12 11/13/23 19:27 Abnormal Lab Results - Last 24 Hours (Table) 11/13/23 11/13/23 11/13/23 Range/Units 18:12 19:27 22:13 RBC 3.75 L (4.30-5.90) m/uL Hgb 11.3 L (13.0-17.5) gm/dL Hct 35.1 L (39.0-53.0) % RDW 16.3 H (11.5-15.5) % Sodium 136 L (137-145) mmol/L Glucose 50 L (74-99) mg/dL POC Glucose (mg/dL) 117 H (70-110) mg/dL Urine Ketones (Negative) 11/14/23 11/14/23 Range/Units 00:24 06:52 RBC (4.30-5.90) m/uL Hgb (13.0-17.5) gm/dL Hct (39.0-53.0) % RDW (11.5-15.5) % Sodium (137-145) mmol/L Glucose (74-99) mg/dL POC Glucose (mg/dL) 144 H (70-110) mg/dL Urine Ketones Trace H (Negative) Diabetes panel 11/13/23 Range/Units 19:27 Sodium 136 L (137-145) mmol/L Potassium 3.9 (3.5-5.1) mmol/L Chloride 102 (98-107) mmol/L Carbon Dioxide 25 (22-30) mmol/L BUN 18 (9-20) mg/dL Creatinine 1.19 (0.66-1.25) mg/dL Glucose 50 L (74-99) mg/dL Calcium 8.4 (8.4-10.2) mg/dL Calcium panel 11/13/23 Range/Units 19:27 Calcium 8.4 (8.4-10.2) mg/dL Pituitary panel 11/13/23 Range/Units 19:27 Sodium 136 L (137-145) mmol/L Potassium 3.9 (3.5-5.1) mmol/L Chloride 102 (98-107) mmol/L Carbon Dioxide 25 (22-30) mmol/L BUN 18 (9-20) mg/dL Creatinine 1.19 (0.66-1.25) mg/dL Glucose 50 L (74-99) mg/dL Calcium 8.4 (8.4-10.2) mg/dL Adrenal panel 11/13/23 Range/Units 19:27 Sodium 136 L (137-145) mmol/L Potassium 3.9 (3.5-5.1) mmol/L Chloride 102 (98-107) mmol/L Carbon Dioxide 25 (22-30) mmol/L BUN 18 (9-20) mg/dL Creatinine 1.19 (0.66-1.25) mg/dL Glucose 50 L (74-99) mg/dL Calcium 8.4 (8.4-10.2) mg/dL
[2023-11-14 11:58] LABS: Glucose,Whole Blood 98 mg/dL (70-110)
--- NOTE | 2023-11-14 14:21 | P.HPIM ---
History of Present Illness H&P Date: 11/14/23 This is a 77-year-old male with medical history significant for atrial fibrillation, heart failure, stroke, diabetes mellitus, acid reflux, chronic kidney disease stage III. Patient comes to the hospital with complaints of bloating and abdominal pain this is been going on for multiple days and he has not had a bowel movement in 7 days. Patient has been residing at [facility] he had an abdominal CT done there that which was reported as nondiagnostic however patient has still not been able to have a bowel movement and was brought to the hospital for further evaluation. He had an abdominal pelvis CT completed here revealing nonspecific perinephric stranding, moderate to severe distention of th e urinary bladder with moderate prostatomegaly there is a large amount of gas and stool in the distal colon which appears present at the level of the rectum however appears most prominent in the proximal sigmoid causes uncertain there is thickening of the adrenals with a nodular appearance correlate for adenomatoid changes. Patient was admitted to the hospital for suspected ileus General surgery was consulted. Patient has been placed on a clear liquid diet. On evaluation his abdomen is significantly distended with mild tenderness in the left lower quadrant. He has sluggish bowel sounds. He is not having any chest pain he is not having any shortness of breath he is not having any nausea or vomiting. REVIEW OF SYSTEMS: CONSTITUTIONAL: No fever, no malaise, no fatigue. HEENT: No recent visual problems or hearing problems. Denied any sore throat. CARDIOVASCULAR: No chest pain, orthopnea, PND, no palpitations, no syncope. PULMONARY: No shortness of breath, no cough, no hemoptysis. GASTROINTESTINAL: No diarrhea, no nausea, no vomiting, no abdominal pain. NEUROLOGICAL: No headaches, no weakness, no numbness. HEMATOLOGICAL: Denies any bleeding or petechiae. GENITOURINARY: Denies any burning micturition, frequency, or urgency. MUSCULOSKELETAL/RHEUMATOLOGICAL: Denies any joint pain, swelling, or any muscle pain. ENDOCRINE: Denies any polyuria or polydipsia. The rest of the 14-point review of systems is negative. PHYSICAL EXAMINATION: GENERAL: The patient is alert and oriented x3, not in any acute distress. Well developed, well nourished. HEENT: Pupils are round and equally reacting to light. EOMI. No scleral icterus. No conjunctival pallor. Normocephalic, atraumatic. No pharyngeal erythema. No thyromegaly. CARDIOVASCULAR: S1 and S2 present. No murmurs, rubs, or gallops. PULMONARY: Chest is clear to auscultation, no wheezing or crackles. ABDOMEN: Soft, mild tenderness in the left lower quadrant distended with sluggish bowel bowel sounds. No palpable organomegaly. MUSCULOSKELETAL: No joint swelling or deformity. EXTREMITIES: No cyanosis, clubbing, or pedal edema. NEUROLOGICAL: Gross neurological examination did not reveal any focal deficits. SKIN: No rashes. Assessment and Plan Abdominal pain secondary to constipation and possible ileus patient will be given lactulose and soapsuds enemas until bowel movement General surgery is following this patient closely. Continue a clear liquid diet for now History of heart failure, diastolic dysfunction with no acute exacerbation History of stroke with right hemiparesis History of type 2 diabetes mellitus Diabetic neuropathy maintained on gabapentin has been resumed History of BPH maintained on Flomax History of stage III chronic kidney disease creatinine at baseline Hypertension Hyperlipidemia resumed on statin therapy Hx of atrial fibrillation anticoagulated with eliquis Underlying dementia and remained on donepezil GI prophylaxis Full Code The impression and plan of care has been dictated by Edel Alcocer Nurse Practitioner as directed. Dr. Sharonda MD I have performed a history and physical examination and medical decision making of this patient, discussed the same with the dictator, and agree with the dictators assessment and plan as written, documented as a scribe. Based on total visit time, I have performed more than 50% of this visit. Past Medical History Past Medical History: Atrial Fibrillation, Chest Pain / Angina, Heart Failure, CVA/TIA, Diabetes Mellitus, GERD/Reflux, Hyperlipidemia, Memory Impairment, Prostate Disorder, Renal Disease, Sleep Apnea/CPAP/BIPAP Additional Past Medical History / Comment(s): 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, Type 2 Diabetes, BPH, Stage 3 chronic kidney disease, CHF, Anemia, insomnia, short term memory History of Any Multi-Drug Resistant Organisms: None Reported Past Surgical History: Appendectomy, Orthopedic Surgery Past Anesthesia/Blood Transfusion Reactions: No Reported Reaction Past Psychological History: No Psychological Hx Reported, Depression Smoking Status: Never smoker Past Alcohol Use History: None Reported Past Drug Use History: None Reported Medications and Allergies Home Medications Medication Instructions Recorded Confirmed Type Cholecalciferol [Vitamin D3 (25 25 mcg PO HS 08/14/22 06/09/24 History Mcg = 1000 Iu)] PARoxetine [Paxil] 10 mg PO HS 01/17/22 11/13/23 History Primidone [Mysoline] 50 mg PO HS 01/17/22 11/13/23 History Tamsulosin [Flomax] 0.4 mg PO HS 01/17/22 11/13/23 History polyethylene glycoL 3350 [Miralax] 17 gm PO Q2D 01/17/22 11/13/23 History Atorvastatin [Lipitor] 40 mg PO HS@199903/01/22 11/13/23 History Apixaban [Eliquis] 5 mg PO BID 08/04/22 11/13/23 History Multivitamins, Thera [Multivitamin 1 tab PO DAILY 08/04/22 11/13/23 History (formulary)] Acetaminophen Tab [Tylenol] 1,000 mg PO Q12H PRN 09/07/22 11/13/23 History Docusate [Colace] 100 mg PO BID 09/07/22 11/13/23 History Ranolazine [Ranexa] 500 mg PO BID 09/07/22 11/13/23 History Bumetanide [BUMEX] 2 mg PO BID 01/06/23 11/13/23 History Menthol [Biofreeze] 1 applic TOPICAL Q8H 01/06/23 11/13/23 History Metoprolol Tartrate [Lopressor] 25 mg PO BID 01/06/23 11/13/23 History glipiZIDE [Glucotrol] 5 mg PO HS 01/21/23 11/13/23 History glipiZIDE [Glucotrol] 10 mg PO DAILY 01/21/23 11/13/23 History Baclofen 10 mg PO TID@0700,1300,1900 3 Days 01/25/23 11/13/23 Rx #9 tab Latanoprost [Latanoprost 0.005%] 1 drop LEFT EYE HS 06/06/23 11/13/23 History Potassium Chloride ER [K-Dur 10] 10 meq PO BID 06/06/23 11/13/23 History Naloxone HCl 0.4 mg SQ ONCE PRN 08/18/23 11/13/23 History Naloxone HCl [Narcan] 4 mg NASAL DIRECTED PRN 08/18/23 11/13/23 History Acetaminophen Tab [Tylenol Tab] 1,000 mg PO TID 11/13/23 11/13/23 History Esomeprazole Magnesium [NexIUM] 20 mg PO DAILY 11/13/23 11/13/23 History Gabapentin [Neurontin] 400 mg PO Q8H 11/13/23 11/13/23 History HYDROcodone/APAP 5-325MG [[place] 1 tab PO Q8H PRN 11/13/23 11/13/23 History 5-325] Isosorbide Dinitrate 30 mg PO DAILY 11/13/23 11/13/23 History Metoclopramide [Reglan] 10 mg PO BID 11/13/23 11/13/23 History Miconazole Nitrate [Lotrimin AF 1 applic TOPICAL BID 11/13/23 11/13/23 History Powder] Sennosides [Senokot] 17.2 mg PO BID 11/13/23 11/13/23 History Simethicone Chew [Mylicon Chew] 80 mg PO BID 11/13/23 11/13/23 History Vision Vitamin 1 tab PO BID 11/13/23 11/13/23 History Allergies Allergy/AdvReac Type Severity Reaction Status Date / Time No Known Allergies Allergy Verified 11/14/23 07:38 Physical Exam Vitals: Vital Signs Temp Pulse Pulse Resp BP BP Pulse Ox 11/14/23 07:48 97.8 F 72 18 150/83 96 11/14/23 06:48 93 18 154/71 99 11/14/23 03:05 98.1 F 95 16 130/61 11/14/23 00:05 69 14 158/87 93 L 11/13/23 21:34 72 18 135/92 98 11/13/23 20:44 79 18 179/102 96 11/13/23 19:56 81 20 178/96 100 11/13/23 17:40 97.8 F 75 18 153/84 96 Intake and Output 11/13/23 11/14/23 11/14/23 22:59 06:59 14:59 Other: Weight 124.738 kg 124.738 kg Results CBC & Chem 7: 11/13/23 18:12 11/13/23 19:27 Labs: Abnormal Lab Results - Last 24 Hours (Table) 11/13/23 11/13/2311/12/24 Range/Units 18:12 19:27 22:13 RBC 3.75 L (4.30-5.90) m/uL Hgb 11.3 L (13.0-17.5) gm/dL Hct 35.1 L (39.0-53.0) % RDW 16.3 H (11.5-15.5) % Sodium 136 L (137-145) mmol/L Glucose 50 L (74-99) mg/dL POC Glucose (mg/dL) 117 H (70-110) mg/dL Urine Ketones (Negative) 11/14/23 11/14/23 Range/Units 00:24 06:52 RBC (4.30-5.90) m/uL Hgb (13.0-17.5) gm/dL Hct (39.0-53.0) % RDW (11.5-15.5) % Sodium (137-145) mmol/L Glucose (74-99) mg/dL POC Glucose (mg/dL) 144 H (70-110) mg/dL Urine Ketones Trace H (Negative) Thrombosis Risk Factor Assmnt - Choose All That Apply Any of the Below Risk Factors Present?: Yes Each Factor Represents 1 point: Medical pt on bed rest, Obesity (BMI >25), Swollen legs (current) Other Risk Factors: Yes Each Risk Factor Represents 3 Points: Age 75 years or older Other congenital or acquired thrombophilia - If yes, enter type in comment: Yes Thrombosis Risk Factor Assessment Total Risk Factor Score: 6 Thrombosis Risk Factor Assessment Level: High Risk Assessment and Plan Time with Patient: Less than 30
[2023-11-14 17:00] LABS: Glucose,Whole Blood 172 mg/dL (70-110)
[2023-11-14] MEDS: LATANOPROST 0.005% OPHTH DROPS 2.5 ML BTL LEFT EYE SCH (19:55)
[2023-11-14] MEDS: RANOLAZINE 500 MG TAB.ER.12H PO SCH (19:55)
[2023-11-14] MEDS: PARoxetine 10 MG TAB PO SCH (19:56)
[2023-11-14] MEDS: TAMSULOSIN 0.4 MG CAP.ER.24H PO SCH (19:56)
[2023-11-14] MEDS: METOPROLOL TARTRATE 25 MG TAB PO SCH (19:56)
[2023-11-14] MEDS: DOCUSATE 100 MG CAP PO SCH (19:56)
[2023-11-14] MEDS: NYSTATIN 100,000 UNIT/GM POWD 15 GM TOPICAL SCH (19:56)
[2023-11-14] MEDS: CHOLECALCIFEROL 25 MCG (1000 IU) TABLET PO SCH (19:56)
[2023-11-14] MEDS: ATORVASTATIN 40 MG TAB PO SCH (19:56)
[2023-11-14] MEDS: PRIMIDONE 50 MG TAB PO SCH (19:56)
[2023-11-14 20:06] LABS: Glucose,Whole Blood 282 mg/dL (70-110)
[2023-11-14] MEDS ORDERED: DEXTROSE 50% SYRINGE 50 ML IVP PRN ×2 (20:29)
[2023-11-14] MEDS: INSULIN ASPART (NovoLOG) 100 UNIT/ML VIAL SQ SCH (20:39)
[2023-11-15 01:05] LABS: Glucose,Whole Blood 96 mg/dL (70-110)
[2023-11-15 06:04] LABS: Glucose,Whole Blood 90 mg/dL (70-110)
[2023-11-15 08:19] LABS: African American GFR (CKD) 79 (>60 ml/min/1.73 sqM); Anion Gap 4 mmol/L; Blood Urea Nitrogen 10 mg/dL (9-20); Calcium 8.2 mg/dL (8.4-10.2); Carbon Dioxide 26 mmol/L (22-30); Chloride 104 mmol/L (98-107); Glucose 90 mg/dL (74-99); Non-African American GFR(CKD) 68 (>60 ml/min/1.73 sqM); Potassium 3.4 mmol/L (3.5-5.1); Sodium 134 mmol/L (137-145)
[2023-11-15] MEDS: ISOSORBIDE DINITRATE 10 MG TAB PO SCH (09:13)
[2023-11-15] MEDS: MULTIVITAMINS, THERA 1 EACH TAB PO SCH (09:13)
[2023-11-15] MEDS: HYDROcodone/APAP 5-325MG 1 EACH TAB PO PRN (10:55)
[2023-11-15 11:31] LABS: Glucose,Whole Blood 177 mg/dL (70-110)
[2023-11-15] MEDS: LACTULOSE 20 GM/30 ML CUP PO SCH (11:50)
--- NOTE | 2023-11-15 12:31 | P.PN ---
Subjective Progress Note Date: 11/15/23 CHIEF COMPLAINT: Abdominal pain HISTORY OF PRESENT ILLNESS: Surgical service following in regards to patient's constipation. Patient reports abdominal pain improved. He is having multiple bowel movements after the lactulose and soapsuds enemas. He does report feeling hungry. Afebrile. PHYSICAL EXAM: VITAL SIGNS: Reviewed. GENERAL: no acute distress. ABDOMEN: Soft. obese. Nondistended. Nontender. ASSESSMENT: 1. Constipation PLAN: -Advance diet to regular -Continue daily dose of lactulose Physician [address] Pressman note has been reviewed by physician. Signing provider agrees with the documented findings, assessment, and plan of care. Objective - Vital Signs Vital signs: Vital Signs Temp 98 F 11/15/23 07:40 Pulse 79 11/15/23 07:40 Resp 18 11/15/23 07:40 BP 125/78 11/15/23 07:40 Pulse Ox 97 11/15/23 07:40 FiO2 Intake & Output 11/14/23 11/15/23 11/15/23 18:59 06:59 18:59 Output Total 700 Balance -700 Weight 124.738 kg Output: Urine 700 Straight 700 Other: Voiding Method Diaper # Voids 2 # Bowel Movements 2 2 - Labs CBC & Chem 7: 11/13/23 18:12 11/15/23 03:22 Labs: Abnormal Lab Results - Last 24 Hours (Table) 11/14/23 11/14/23 11/15/23 Range/Units 16:59 20:04 03:22 Sodium (137-145) mmol/L Potassium (3.5-5.1) mmol/L POC Glucose (mg/dL) 172 H 282 H (70-110) mg/dL Hemoglobin A1c 7.0 H (<=6.0) % Calcium (8.4-10.2) mg/dL 11/15/23 11/15/23 Range/Units 03:22 11:30 Sodium 134 L (137-145) mmol/L Potassium 3.4 L (3.5-5.1) mmol/L POC Glucose (mg/dL) 177 H (70-110) mg/dL Hemoglobin A1c (<=6.0) % Calcium 8.2 L (8.4-10.2) mg/dL
[2023-11-15] MEDS: POTASSIUM CHLORIDE ER 20 MEQ TAB.ER PO STA (12:34)
[2023-11-15] MEDS: POTASSIUM CHLORIDE ER 20 MEQ TAB.ER PO ONE (14:29)
--- NOTE | 2023-11-15 14:56 | P.PN ---
Subjective Progress Note Date: 11/15/23 This is a 77-year-old male with medical history significant for atrial fibrillation, heart failure, stroke, diabetes mellitus, acid reflux, chronic kidney disease stage III. Patient comes to the hospital with complaints of bloating and abdominal pain this is been going on for multiple days and he has not had a bowel movement in 7 days. Patient has been residing at [facility] he had an abdominal CT done there that which was reported as nondiagnostic however patient has still not been able to have a bowel movement and was brought to the hospital for further evaluation. He had an abdominal pelvis CT completed here revealing nonspecific perinephric stranding, moderate to severe distention of the urinary bladder with moderate prostatomegaly there is a large amount of gas and stool in the distal colon which appears present at the level of the rectum however appears most prominent in the proximal sigmoid causes uncertain there is thickening of the adrenals with a nodular appearance correlate for adenomatoid changes. Patient was admitted to the hospital for suspected ileus General surgery was consulted. Patient has been placed on a clear liquid diet. On evaluation his abdomen is significantly distended with mild tenderness in the left lower quadrant. He has sluggish bowel sounds. He is not having any chest pain he is not having any shortness of breath he is not having any nausea or vom iting. 11/15/2023 Patient is evaluated today in follow up. Has had 4 bowel movements. His diet will be advanced to regular. He is no longe reporting abdominal pain. He has normoactive bowel sounds and abdomen is soft. His sodium is 134, potassium 3.4. Review of Systems Constitutional: Denied any fatigue denied any fever. Cardio vascular: denied any chest pain, palpitations Gastrointestinal: denied any nausea, vomiting, diarrhea Pulmonary: Denied any shortness of breath cough Neurologic denied any new focal deficits All inpatient medications were reviewed and appropriate changes in these m edications as dictated in the interval history and assessment and plan. PHYSICAL EXAMINATION: GENERAL: The patient is alert and oriented x3, not in any acute distress. Well developed, well nourished. HEENT: Pupils are round and equally reacting to light. EOMI. No scleral icterus. No conjunctival pallor. Normocephalic, atraumatic. No pharyngeal erythema. No thyromegaly. CARDIOVASCULAR: S1 and S2 present. No murmurs, rubs, or gallops. PULMONARY: Chest is clear to auscultation, no wheezing or crackles. ABDOMEN: Soft, mild tenderness in the left lower quadrant distended with sluggish bowel bowel sounds. No palpable organomegaly. MUSCULOSKELETAL: No joint swelling or deformity. EXTREMITIES: No cyanosis, clubbing, or pedal edema. NEUROLOGICAL: Gross neurological examination did not reveal any focal deficits. SKIN: No rashes. Assessment and Plan Abdominal pain secondary to constipation and possible ileus patient will be given lactulose and soapsuds enemas until bowel movement General surgery is following this patient closely. Patient is now having bowel movements, diet will be advanced. History of heart failure, diastolic dysfunction with no acute exacerbation sodium did drop while on IV fluids, we will recommend to stop them and resume patient on his oral lasix. History of stroke with right hemiparesis History of type 2 diabetes mellitus hold oral diabetic medications and continue with accuchecks ACHS and sliding scale insulin. Hypokalemia due to multiple bowel movements supplemented and will repeat BMP tomorrow. Diabetic neuropathy maintained on gabapentin has been resumed History of BPH maintained on Flomax History of stage III chronic kidney disease creatinine at baseline Hypertension Hyperlipidemia resumed on statin therapy Hx of atrial fibrillation anticoagulated with eliquis Underlying dementia and remained on donepezil GI prophylaxis Full Code Advance diet. Possible dc back to the [facility] in the next 24 hours. Repeat blood work in the AM. The impression and plan of care has been dictated by Edel Alcocer, Nurse Practitioner as directed. Dr. Sharonda MD I have performed a history and physical examination and medical decision making of this patient, discussed the same with the dictator, and agree with the dictators assessment and plan as written, documented as a scribe. Based on total visit time, I have performed more than 50% of this visit. Objective - Vital Signs Vital signs: Vital Signs Temp 98.1 F 11/15/23 13:34 Pulse 75 11/15/23 13:34 Resp 16 11/15/23 13:34 BP 116/72 11/15/23 13:34 Pulse Ox 97 11/15/23 13:34 FiO2 Intake & Output 11/14/23 11/15/23 11/15/23 18:59 06:59 18:59 Output Total 700 Balance -700 Weight 124.738 kg Output: Urine 700 Straight 700 Other: Voiding Method Diaper # Voids 2 # Bowel Movements 2 2 - Labs CBC & Chem 7: 11/13/23 18:12 11/15/23 03:22 Labs: Abnormal Lab Results - Last 24 Hours (Table) 11/14/23 11/14/23 11/15/23 Range/Units 16:59 20:04 03:22 Sodium (137-145) mmol/L Potassium (3.5-5.1) mmol/L POC Glucose (mg/dL) 172 H 282 H (70-110) mg/dL Hemoglobin A1c 7.0 H (<=6.0) % Calcium (8.4-10.2) mg/dL 11/15/23 11/15/23 Range/Units 03:22 11:30 Sodium 134 L (137-145) mmol/L Potassium 3.4 L (3.5-5.1) mmol/L POC Glucose (mg/dL) 177 H (70-110) mg/dL Hemoglobin A1c (<=6.0) % Calcium 8.2 L (8.4-10.2) mg/dL Assessment and Plan Time with Patient: Less than 30
[2023-11-15 16:36] LABS: Glucose,Whole Blood 167 mg/dL (70-110)
[2023-11-15 20:52] LABS: Glucose,Whole Blood 134 mg/dL (70-110)
[2023-11-15] MEDS: BUMETANIDE 1 MG TAB PO SCH (21:11)
[2023-11-16 02:02] LABS: Glucose,Whole Blood 158 mg/dL (70-110)
[2023-11-16 05:47] LABS: Glucose,Whole Blood 153 mg/dL (70-110)
[2023-11-16 09:23] LABS: BUN/Creat Ratio 7.23 Ratio (12.00-20.00); Blood Urea Nitrogen 9.4 mg/dL (9.0-27.0); Calcium 8.6 mg/dL (8.7-10.3); Carbon Dioxide 22.3 mmol/L (21.6-31.8); Chloride 102 mmol/L (96-109); Glucose 146 mg/dL (70-110); Magnesium 1.7 mg/dL (1.5-2.4); Potassium 3.8 mmol/L (3.5-5.5); Sodium 136 mmol/L (135-145)
[2023-11-16] MEDS ORDERED: Magnesium Replacement Protocol 1 EACH MISC MISCELLANE PRN (09:41)
[2023-11-16] MEDS: MAGNESIUM SULFATE-D5W PMX 1 GM in DEXTROSE/WATER 1 100ML.BAG IVPB ONE (10:24)
[2023-11-16 11:51] LABS: Glucose,Whole Blood 151 mg/dL (70-110)
--- NOTE | 2023-11-16 12:45 | P.PN ---
Subjective Progress Note Date: 11/16/23 CHIEF COMPLAINT: Abdominal pain HISTORY OF PRESENT ILLNESS: Surgical service following in regards to patient's constipation. Patient having bowel movements and flatus. Tolerating regular diet. No abdominal pain. Afebrile. PHYSICAL EXAM: VITAL SIGNS: Reviewed. GENERAL: no acute distress. ABDOMEN: Soft. obese. Nondistended. Nontender. ASSESSMENT: 1. Constipation PLAN: -Patient can be discharged from surgical standpoint -Recommend good bowel regimen to continue at discharge Physician Embossing Unit Operator note has been reviewed by physician. Signing provider agrees with the documented findings, assessment, and plan of care. Objective - Vital Signs Vital signs: Vital Signs Temp 98.2 F 11/16/23 07:03 Pulse 80 11/16/23 07:03 Resp 18 11/16/23 07:03 BP 131/71 11/16/23 07:03 Pulse Ox 96 11/16/23 07:03 FiO2 Intake & Output 11/15/23 11/16/23 11/16/23 18:59 06:59 18:59 Other: # Voids 2 1 # Bowel Movements 1 - Labs CBC & Chem 7: 11/13/23 18:12 11/16/23 03:13 Labs: Abnormal Lab Results - Last 24 Hours (Table) 11/15/23 11/15/23 11/16/23 Range/Units 16:34 20:51 02:01 Est GFR (CKD-EPI) (>=60) BUN/Creatinine Ratio (12.00-20.00) Ratio Glucose (70-110) mg/dL POC Glucose (mg/dL) 167 H 134 H 158 H (70-110) mg/dL Calcium (8.7-10.3) mg/dL 11/16/23 11/16/23 11/16/23 Range/Units 03:13 05:46 11:49 Est GFR (CKD-EPI) 56 L (>=60) BUN/Creatinine Ratio 7.23 L (12.00-20.00) Ratio Glucose 146 H (70-110) mg/dL POC Glucose (mg/dL) 153 H 151 H (70-110) mg/dL Calcium 8.6 L (8.7-10.3) mg/dL
--- NOTE | 2023-11-16 13:33 | P.DS ---
Providers Date of admission: 11/13/23 22:45 Attending physician: Mahsa Costello MD Consults: 11/13/23 22:43 Consult Physician Routine Consulting Provider: Daniel Valles Consult Reason/Comments: abdominal pain Do you want consulting provider notified?: Yes Primary care physician: Nabila Chowdhury DO Hospital Course: Final Diagnosis Abdominal pain secondary to constipation and possible ileus History of heart failure, diastolic dysfunction with no acute exacerbation History of stroke with right hemiparesis History of type 2 diabetes mellitus Hypokalemia due to multiple bowel movements supplemented Diabetic neuropathy maintained on gabapentin has been resumed History of BPH maintained on Flomax History of stage III chronic kidney disease creatinine at baseline Hypertension Hyperlipidemia resumed on statin therapy Hx of atrial fibrillation anticoagulated with eliquis Underlying dementia and remained on donepezil Discharge Disposition Patient is stable for return to ECF. He is having bowel movements and will need to continue on bowel regimen daily. Recommending to also continue with nystatin power to the skin folds. Patient to follow up with Dr Valles as needed. Repeat a BMP in 2 to 3 days. Hospital Course This is a 77-year-old male with medical history significant for atrial fibrillation, heart failure, stroke, diabetes mellitus, acid reflux, chronic kidney disease stage III. Patient comes to the hospital with complaints of bloating and abdominal pain this is been going on for multiple days and he has not had a bowel movement in 7 days. Patient has been residing at [facility] he had an abdominal CT done there that which was reported as nondiagnostic however patient has still not been able to have a bowel movement and was brought to the hospital for further evaluation. He had an abdominal pelvis CT completed here revealing nonspecific perinephric stranding, moderate to severe distention of the urinary bladder with moderate prostatomegaly there is a large amount of gas and stool in the distal colon which appears present at the level of the rectum however appears most prominent in the proximal sigmoid causes uncertain there is thickening of the adrenals with a nodular appearance correlate for adenomatoid changes. Patient was admitted to the hospital for suspected ileus General surgery was consulted. Patient has been placed on a clear liquid diet. On evaluation his abdomen is significantly distended with mild tenderness in the left lower quadrant. He has sluggish bowel sounds. He is not having any chest pain he is not having any shortness of breath he is not having any nausea or vomiting. General surgery recommending lactulose and soap suds enema and patient now has had multiple large bowel movements. His bowel sounds are more active and his abdomen is soft and nontender. He is awake and alert. He is not having any more complaints of abdominal pain and has tolerated regular diet. He will need to stay on a bowel regimen recommending to continue on miralax daily with lactulose daily as needed for bowel movement. Patient was hydrated and was stopped and resumed back on his oral diuretics. Patients electrolytes and renal function WNL. He is hemodynamically stable. He can return to ECF. Please see medication reconciliation for a list of current medications. Thank you for allowing us to participate in the care of this patient. The impression and plan of care has been dictated by Edel Alcocer Nurse Practitioner as directed. Dr. Sharonda MD I have performed a history and physical examination and medical decision making of this patient, discussed the same with the dictator, and agree with the dictators assessment and plan as written, documented as a scribe. Based on total visit time, I have performed more than 50% of this visit. Patient Condition at Discharge: Good Plan - Discharge Summary New Discharge Prescriptions: New Lactulose [Cephulac] 30 gm PO DAILY PRN #150 ml PRN Reason: Constipation Nystatin 100,000 Unit/gm Powd [Mycostatin Powder] 1 applic TOPICAL BID each Continue Cholecalciferol [Vitamin D3 (25 Mcg = 1000 Iu)] 25 mcg PO HS polyethylene glycoL 3350 [Miralax] 17 gm PO Q2D PARoxetine [Paxil] 10 mg PO HS Tamsulosin [Flomax] 0.4 mg PO HS Apixaban [Eliquis] 5 mg PO BID Multivitamins, Thera [Multivitamin (formulary)] 1 tab PO DAILY Docusate [Colace] 100 mg PO BID Menthol [Biofreeze] 1 applic TOPICAL Q8H Potassium Chloride ER [K-Dur 10] 10 meq PO BID Miconazole Nitrate [Lotrimin AF Powder] 1 applic TOPICAL BID Acetaminophen Tab [Tylenol] 1,000 mg PO TID Isosorbide Dinitrate 30 mg PO DAILY Simethicone Chew [Mylicon Chew] 80 mg PO BID Primidone [Mysoline] 50 mg PO HS Atorvastatin [Lipitor] 40 mg PO HS@2000 Ranolazine [Ranexa] 500 mg PO BID Bumetanide [BUMEX] 2 mg PO BID Metoprolol Tartrate [Lopressor] 25 mg PO BID glipiZIDE [Glucotrol] 10 mg PO DAILY glipiZIDE [Glucotrol] 5 mg PO HS Baclofen 10 mg PO TID@0700,1300,1900 3 Days #9 tab Latanoprost [Latanoprost 0.005%] 1 drop LEFT EYE HS Naloxone HCl 0.4 mg SQ ONCE PRN PRN Reason: OVERDOSE Naloxone HCl [Narcan] 4 mg NASAL DIRECTED PRN PRN Reason: OVERDOSE Vision Vitamin 1 tab PO BID Esomeprazole Magnesium [NexIUM] 20 mg PO DAILY Metoclopramide [Reglan] 10 mg PO BID Sennosides [Senokot] 17.2 mg PO BID Changed Gabapentin [Neurontin] 400 mg PO Q8H #4 cap HYDROcodone/APAP 5-325MG [[place] 5-325] 1 tab PO Q8H PRN #4 tab PRN Reason: Pain Discontinued Acetaminophen Tab [Tylenol] 1,000 mg PO Q12H PRN PRN Reason: Pain Discharge Medication List Cholecalciferol [Vitamin D3 (25 Mcg = 1000 Iu)] 25 mcg PO HS 01/17/22 [History] PARoxetine [Paxil] 10 mg PO HS 01/17/22 [History] Primidone [Mysoline] 50 mg PO HS 01/17/22 [History] Tamsulosin [Flomax] 0.4 mg PO HS 01/17/22 [History] polyethylene glycoL 3350 [Miralax] 17 gm PO Q2D 01/17/22 [History] Atorvastatin [Lipitor] 40 mg PO HS@199903/01/22 [History] Apixaban [Eliquis] 5 mg PO BID 08/04/22 [History] Multivitamins, Thera [Multivitamin (formulary)] 1 tab PO DAILY 08/04/22 [History] Docusate [Colace] 100 mg PO BID 09/07/22 [History] Ranolazine [Ranexa] 500 mg PO BID 09/07/22 [History] Bumetanide [BUMEX] 2 mg PO BID 01/06/23 [History] Menthol [Biofreeze] 1 applic TOPICAL Q8H 01/06/23 [History] Metoprolol Tartrate [Lopressor] 25 mg PO BID 01/06/23 [History] glipiZIDE [Glucotrol] 5 mg PO HS 01/21/23 [History] glipiZIDE [Glucotrol] 10 mg PO DAILY 01/21/23 [History] Baclofen 10 mg PO TID@0700,1300,1900 3 Days #9 tab 01/25/23 [Rx] Latanoprost [Latanoprost 0.005%] 1 drop LEFT EYE HS 06/06/23 [History] Potassium Chloride ER [K-Dur 10] 10 meq PO BID 06/06/23 [History] Naloxone HCl 0.4 mg SQ ONCE PRN 08/18/23 [History] Naloxone HCl [Narcan] 4 mg NASAL DIRECTED PRN 08/18/23 [History] Acetaminophen Tab [Tylenol] 1,000 mg PO TID 11/13/23 [History] Esomeprazole Magnesium [NexIUM] 20 mg PO DAILY 11/13/23 [History] Isosorbide Dinitrate 30 mg PO DAILY 11/13/23 [History] Metoclopramide [Reglan] 10 mg PO BID 11/13/23 [History] Miconazole Nitrate [Lotrimin AF Powder] 1 applic TOPICAL BID 11/13/23 [History] Sennosides [Senokot] 17.2 mg PO BID 11/13/23 [History] Simethicone Chew [Mylicon Chew] 80 mg PO BID 11/13/23 [History] Vision Vitamin 1 tab PO BID 11/13/23 [History] Gabapentin [Neurontin] 400 mg PO Q8H #4 cap 11/16/23 [Rx] HYDROcodone/APAP 5-325MG [[place] 5-325] 1 tab PO Q8H PRN #4 tab 11/16/23 [Rx] Lactulose [Cephulac] 30 gm PO DAILY PRN #150 ml 11/16/23 [Rx] Nystatin 100,000 Unit/gm Powd [Mycostatin Powder] 1 applic TOPICAL BID each 11/16/23 [Rx] Follow up Appointment(s)/Referral(s): Nabila Chowdhury DO [Primary Care Provider] - 1 Week [facility], [NON-STAFF] - As Needed Daniel Valles MD [STAFF PHYSICIAN] - 1 Week Ambulatory/Diagnostic Orders: Basic Metabolic Panel [LAB.AMB] Time Frame: 3 Days, Location: None Selected
[2023-11-16 17:08] LABS: Glucose,Whole Blood 153 mg/dL (70-110)
[2023-11-16 20:04] LABS: Glucose,Whole Blood 166 mg/dL (70-110)
[2023-11-17 01:49] LABS: Glucose,Whole Blood 115 mg/dL (70-110)
[2023-11-17 05:45] LABS: Glucose,Whole Blood 117 mg/dL (70-110)
[2023-11-17 07:25] VITALS: PULSE 81; TEMP 97.8
[2023-11-17] MEDS: FAMOTIDINE 20 MG TAB PO SCH (09:50)
[2023-11-17] MEDS: ZINC OXIDE PASTE (Z-GUARD) 1 APPLIC TOPICAL PRN (09:54)
[2023-11-17 11:26] LABS: Glucose,Whole Blood 141 mg/dL (70-110)
[2023-11-17 11:41] VITALS: RESP 18
[2023-11-17 14:16] VITALS: BP 128/67
--- NOTE | 2023-11-17 15:16 | P.PN ---
Subjective Progress Note Date: 11/17/23 CHIEF COMPLAINT: Abdominal pain HISTORY OF PRESENT ILLNESS: Surgical service following in regards to patient's constipation. Patient having bowel movements and flatus. Tolerating regular diet. No abdominal pain. Afebrile. Patient was not discharged yesterday due to awaiting insurance authorization. PHYSICAL EXAM: VITAL SIGNS: Reviewed. GENERAL: no acute distress. ABDOMEN: Soft. obese. Nondistended. Nontender. ASSESSMENT: 1. Constipation PLAN: -Patient can be discharged from surgical standpoint -Recommend good bowel regimen to continue at discharge Physician Parking Enforcer note has been reviewed by physician. Signing provider agrees with the documented findings, assessment, and plan of care. Objective - Vital Signs Vital signs: Vital Signs Temp 97.8 F 11/17/23 13:11 Pulse 81 11/17/23 13:11 Resp 18 11/17/23 13:11 BP 128/67 11/17/23 13:11 Pulse Ox 95 11/17/23 13:11 FiO2 Intake & Output 11/16/23 11/17/23 11/17/23 18:59 06:59 18:59 Output Total 350 Balance -350 Output: Urine 350 Other: # Voids 4 1 # Bowel Movements 1 - Labs CBC & Chem 7: 11/13/23 18:12 11/16/23 03:13 Labs: Abnormal Lab Results - Last 24 Hours (Table) 11/16/23 11/16/23 11/17/23 Range/Units 17:07 20:02 01:48 POC Glucose (mg/dL) 153 H 166 H 115 H (70-110) mg/dL 11/17/23 11/17/23 Range/Units 05:44 11:25 POC Glucose (mg/dL) 117 H 141 H (70-110) mg/dL
== END 2023-11-17 14:38 ==
LOC: EC 17:31 → 5NMEDONC 22:45 → 4SSUR 11-14 04:10
PROVIDERS: ADMIT Internal Medicine; ATTEND Internal Medicine
DX: R10.9 Unspecified abdominal pain (principal); K59.00 Constipation, unspecified; I48.91 Unspecified atrial fibrillation; I13.0 Hypertensive heart and chronic kidney disease with heart failure and stage 1 through stage 4 chronic kidney disease, or unspecified chronic kidney disease; I50.32 Chronic diastolic (congestive) heart failure; N18.30 Chronic kidney disease, stage 3 unspecified; E11.22 Type 2 diabetes mellitus with diabetic chronic kidney disease; K21.9 Gastro-esophageal reflux disease without esophagitis; E78.5 Hyperlipidemia, unspecified; G47.30 Sleep apnea, unspecified; E11.649 Type 2 diabetes mellitus with hypoglycemia without coma; N40.1 Benign prostatic hyperplasia with lower urinary tract symptoms; R33.8 Other retention of urine; E87.6 Hypokalemia; E11.40 Type 2 diabetes mellitus with diabetic neuropathy, unspecified; F03.90 Unspecified dementia, unspecified severity, without behavioral disturbance, psychotic disturbance, mood disturbance, and anxiety; I69.351 Hemiplegia and hemiparesis following cerebral infarction affecting right dominant side; Z79.899 Other long term (current) drug therapy; Z79.01 Long term (current) use of anticoagulants; Z79.84 Long term (current) use of oral hypoglycemic drugs
CPT/HCPCS: 96361; 96365; 96374; 99285; 36415; 97162; 97166; 80048 ×3; 83605; 83735 ×2; 85025; 82272; 81003; 83036; 74176; G0378 ×5; J2270; J3475

== ENCOUNTER 2024-02-17 16:30 | Emergency (ER) | payer MEDICARE, OTHER ==
[2024-02-17 16:38] VITALS: RESP 18; TEMP 97.5
--- NOTE | 2024-02-17 17:00 | ED ---
Recheck HPI - General Chief Complaint: Abdominal Pain Stated Complaint: Abnormal Xray abd Time Seen by Provider: 02/17/24 16:32 Source: patient, RN notes reviewed, old records reviewed Mode of arrival: EMS Limitations: no limitations - History of Present Illness Initial Comments: This is an 78-year-old male to the ER for evaluation of recurrent abdominal pain patient has history of abdominal pain history of similar symptoms and was sent to ER for possible ileus versus small bowel obstruction. Patient states currently has no abdominal pain here in the ER MD Complaint: other (Abnormal outpatient x-ray showing ileus) -: unknown Returns Today for: persistent/worsening pain related to initial visit Symptoms Since Prior Visit: no new symptoms Context: planned re-check Associated Symptoms: none - Related Data Home Medications Medication Instructions Recorded Confirmed Cholecalciferol [Vitamin D3 (25 25 mcg PO HS 01/17/22 11/13/23 Mcg = 1000 Iu)] PARoxetine [Paxil] 10 mg PO HS 01/17/22 11/13/23 Primidone [Mysoline] 50 mg PO HS 01/17/22 11/13/23 Tamsulosin [Flomax] 0.4 mg PO HS 01/17/22 11/13/23 polyethylene glycoL 3350 [Miralax] 17 gm PO Q2D 01/17/22 11/13/23 Atorvastatin [Lipitor] 40 mg PO HS@199903/01/22 11/13/23 Apixaban [Eliquis] 5 mg PO BID 08/04/22 11/13/23 Multivitamins, Thera [Multivitamin 1 tab PO DAILY 08/04/22 11/13/23 (formulary)] Docusate [Colace] 100 mg PO BID 09/07/22 11/13/23 Ranolazine [Ranexa] 500 mg PO BID 09/07/22 11/13/23 Bumetanide [BUMEX] 2 mg PO BID 01/06/23 11/13/23 Menthol [Biofreeze] 1 applic TOPICAL Q8H 01/06/23 11/13/23 Metoprolol Tartrate [Lopressor] 25 mg PO BID 01/06/23 11/13/23 glipiZIDE [Glucotrol] 5 mg PO HS 01/21/23 11/13/23 glipiZIDE [Glucotrol] 10 mg PO DAILY 01/21/23 11/13/23 Latanoprost [Latanoprost 0.005%] 1 drop LEFT EYE HS 06/06/23 11/13/23 Potassium Chloride ER [K-Dur 10] 10 meq PO BID 06/06/23 11/13/23 Naloxone HCl 0.4 mg SQ ONCE PRN 08/18/23 11/13/23 Naloxone HCl [Narcan] 4 mg NASAL DIRECTED PRN 08/18/23 11/13/23 Acetaminophen Tab [Tylenol] 1,000 mg PO TID 11/13/23 11/13/23 Esomeprazole Magnesium [NexIUM] 20 mg PO DAILY 11/13/23 11/13/23 Isosorbide Dinitrate 30 mg PO DAILY 11/13/23 11/13/23 Metoclopramide [Reglan] 10 mg PO BID 11/13/23 11/13/23 Miconazole Nitrate [Lotrimin AF 1 applic TOPICAL BID 11/13/23 11/13/23 Powder] Sennosides [Senokot] 17.2 mg PO BID 11/13/23 11/13/23 Simethicone Chew [Mylicon Chew] 80 mg PO BID 11/13/23 11/13/23 Vision Vitamin 1 tab PO BID 11/13/23 11/13/23 Previous Rx's Medication Instructions Recorded Baclofen 10 mg PO TID@0700,1300,1900 3 Days 01/25/23 #9 tab Gabapentin [Neurontin] 400 mg PO Q8H #4 cap 11/16/23 HYDROcodone/APAP 5-325MG [[place] 1 tab PO Q8H PRN #4 tab 11/16/23 5-325] Lactulose [Cephulac] 30 gm PO DAILY PRN #150 ml 11/16/23 Nystatin 100,000 Unit/gm Powd 1 applic TOPICAL BID each 11/16/23 [Mycostatin Powder] Allergies Allergy/AdvReac Type Severity Reaction Status Date / Time No Known Allergies Allergy Verified 11/14/23 07:38 Review of Systems ROS Statement: Those systems with pertinent positive or pertinent negative responses have been documented in the HPI. ROS Other: All systems not noted in ROS Statement are negative. Past Medical History Past Medical History: Atrial Fibrillation, Chest Pain / Angina, Heart Failure, CVA/TIA, Diabetes Mellitus, GERD/Reflux, Hyperlipidemia, Memory Impairment, Prostate Disorder, Renal Disease, Sleep Apnea/CPAP/BIPAP Additional Past Medical History / Comment(s): STROKE IN 2009 resulting in hemiplegia, Type 2 Diabetes, BPH, Stage 3 chronic kidney disease, CHF, Anemia, insomnia, short term memory History of Any Multi-Drug Resistant Organisms: None Reported Past Surgical History: Appendectomy, Orthopedic Surgery Past Anesthesia/Blood Transfusion Reactions: No Reported Reaction Past Psychological History: No Psychological Hx Reported, Depression Smoking Status: Never smoker Past Alcohol Use History: None Reported Past Drug Use History: None Reported General Exam Limitations: no limitations General appearance: alert, in no apparent distress Head exam: Present: atraumatic, normocephalic, normal inspection Eye exam: Present: normal appearance, PERRL, EOMI. Absent: scleral icterus, conjunctival injection, periorbital swelling ENT exam: Present: normal exam, mucous membranes moist Neck exam: Present: normal inspection. Absent: tenderness, meningismus, lymphadenopathy Respiratory exam: Present: normal lung sounds bilaterally. Absent: respiratory distress, wheezes, rales, rhonchi, stridor Cardiovascular Exam: Present: regular rate, normal rhythm, normal heart sounds. Absent: systolic murmur, diastolic murmur, rubs, gallop, clicks GI/Abdominal exam: Present: soft, distended, tenderness, guarding, normal bowel sounds. Absent: rebound, rigid Extremities exam: Present: normal inspection, full ROM, normal capillary refill. Absent: tenderness, pedal edema, joint swelling, calf tenderness Back exam: Present: normal inspection Neurological exam: Present: alert, oriented X3, CN II-XII intact Psychiatric exam: Present: normal affect, normal mood Skin exam: Present: warm, dry, intact, normal color. Absent: rash Course Vital Signs 02/17/24 02/17/24 02/18/24 16:32 22:21 01:09 Temperature 97.5 F L Pulse Rate 63 50 L 55 L Respiratory 18 18 18 Rate Blood Pressure 155/78 143/82 145/65 O2 Sat by Pulse 97 94 L 95 Oximetry - Reevaluation(s) Reevaluation #1: 02/17/24 20:24 Medical records reviewed Reevaluation #2: 02/17/24 20:24 Patient symptoms are unchanged no pain Reevaluation #3: 02/17/24 20:24 Patient informed of results and questions answered Reevaluation #4: Was pt. sent in by a medical professional or institution (, KITA, BONDING MACHINE SETTER, urgent care, hospital, or senior living...) When possible be specific @ -no Did you speak to anyone other than the patient for history (EMS, parent, family, police, friend...)? What history was obtained from this source @ -no Did you review nursing and triage notes (agree or disagree)? Why? @ -agree Are old charts reviewed (outside hosp., previous admission, EMS record, old EKG, old radiological studies, urgent care reports/EKG's, senior living records)? Report findings @ -yes Differential Diagnosis (chest pain, altered mental status, abdominal pain women, abdominal pain men, vaginal bleeding, weakness, fever, dyspnea, syncope, headache, dizziness, GI bleed, back pain, seizure, CVA, palpatations, mental health, musculoskeletal)? @ -prior EKG interpreted by me (3pts min.). @ -yes X-rays interpreted by me (1pt min.). @ -no CT interpreted by me (1pt min.). @ -yes negative for acute disease U/S interpreted by me (1pt. min.). @ -no What testing was considered but not performed or refused? (CT, X-rays, U/S, labs)? Why? @ -none What meds were considered but not given or refused? Why? @ -none Did you discuss the management of the patient with other professionals (professionals i.e. , KITA, BONDING MACHINE SETTER, lab, RT, psych nurse, social scientist, actuarial intern, teacher, district fire management officer, showcase trimmer)? Give summary @ -no Was smoking cessation discussed for >3mins.? @ -no Was critical care preformed (if so, how long)? @ -no Were there social determinants of health that impacted care today? How? (H omelessness, low income, unemployed, alcoholism, drug addiction, transportation, low edu. Level, literacy, decrease access to med. care, custodial, rehab)? @ -none Was there de-escalation of care discussed even if they declined (Discuss DNR or withdrawal of care, Hospice)? DNR status @ -no What co-morbidities impacted this encounter? (DM, HTN, Smoking, COPD, CAD, Cancer, CVA, ARF, Chemo, Hep., AIDS, mental health diagnosis, sleep apnea, morbid obesity)? @ -none Was patient admitted / discharged? Hospital course, mention meds given and route, prescriptions, significant lab abnormalities, going to OR and other pertinent info. @ - 78 male to ER for evaluation abdominal pain positive ileus findings on x- ray as an outpatient electively, patient has no findings of ileus here in the ER no significant changes from prior CT scan here in the ER patient has no nausea or vomiting no abdominal pain will be discharged home Discharged Undiagnosed new problem with uncertain prognosis? @ -no Drug Therapy requiring intensive monitoring for toxicity (Heparin, Nitro, Insulin, Cardizem)? @ -no Were any procedures done? @ -no Diagnosis/symptom? @ -Abdominal pain Acute, or Chronic, or Acute on Chronic? @ -Acute Uncomplicated (without systemic symptoms) or Complicated (systemic symptoms)? @ -Complicated Side effects of treatment? @ -no Exacerbation, Progression, or Severe Exacerbation? @ -exacerbation Poses a threat to life or bodily function? How? (Chest pain, [place], [place], pneumonia, PE, COPD, DKA, ARF, appy, cholecystitis, CVA, Diverticulitis, Homicidal, Suicidal, threat to staff... and all critical care pts) @ -yes extremes of age Reevaluation #5: Differential Abdominal Pain Men: Appendicitis, cholecystitis, diverticulosis, ischemic bowel, pancreatitis, hepatitis, UTI, gastroenteritis, AAA, incarcerated hernia, bowel obstruction, constipation, inflammatory bowel, hepatitis, peptic ulcer disease, splenic infarction, perforated viscus, testicular torsion, this is not meant to be an all-inclusive list Medical Decision Making - Medical Decision Making 78 male to ER for evaluation abdominal pain positive ileus findings on x-ray as an outpatient electively, patient has no findings of ileus here in the ER no significant changes from prior CT scan here in the ER patient has no nausea or vomiting no abdominal pain will be discharged home - Lab Data Result diagrams: 02/17/24 18:24 02/17/24 19:41 Lab Results 02/17/24 02/17/24 02/17/24 Range/Units 18:24 18:24 19:41 WBC 7.6 (3.8-10.6) k/uL RBC 4.13 L (4.30-5.90) m/uL Hgb 12.2 L (13.0-17.5) gm/dL Hct 38.8 L (39.0-53.0) % MCV 94.1 (80.0-100.0) fL MCH 29.6 (25.0-35.0) pg MCHC 31.4 (31.0-37.0) g/dL RDW 16.2 H (11.5-15.5) % Plt Count 189 (150-450) k/uL MPV 9.1 Neutrophils % 63 % Lymphocytes % 22 % Monocytes % 7 % Eosinophils % 6 % Basophils % 0 % Neutrophils # 4.8 (1.3-7.7) k/uL Lymphocytes # 1.7 (1.0-4.8) k/uL Monocytes # 0.5 (0-1.0) k/uL Eosinophils # 0.4 (0-0.7) k/uL Basophils # 0.0 (0-0.2) k/uL Hypochromasia Slight Anisocytosis Slight Sodium 138 (137-145) mmol/L Potassium 4.0 (3.5-5.1) mmol/L Chloride 101 (98-107) mmol/L Carbon Dioxide 25 (22-30) mmol/L Anion Gap 12 mmol/L BUN 32 H (9-20) mg/dL Creatinine 1.47 H (0.66-1.25) mg/dL Est GFR (CKD-EPI)AfAm 51 (>60 ml/min/1.73 sqM) Est GFR (CKD-EPI)NonAf 45 (>60 ml/min/1.73 sqM) Glucose 103 H (74-99) mg/dL Plasma Lactic Acid Bertram 1.9 (0.7-2.0) mmol/L Calcium 9.2 (8.4-10.2) mg/dL Total Bilirubin 0.5 (0.2-1.3) mg/dL AST 20 (17-59) U/L ALT 14 (4-49) U/L Alkaline Phosphatase 68 (38-126) U/L Total Protein 7.8 (6.3-8.2) g/dL Albumin 3.9 (3.5-5.0) g/dL Amylase 58 (30-110) U/L Lipase 130 (23-300) U/L - Radiology Data Radiology results: report reviewed (CT abdomen pelvis is unchanged from prior CT scans), image reviewed Disposition Clinical Impression: Obesity, Abdominal pain Disposition: HOME SELF-CARE Condition: Fair Instructions (If sedation given, give patient instructions): Abdominal Pain (ED) Is patient prescribed a controlled substance at d/c from ED?: No Referrals: Nabila Chowdhury DO [Primary Care Provider] - 1-2 days Time of Disposition: 20:25
[2024-02-17] MEDS: ONDANSETRON 4 MG/2 ML VIAL IVP STA (18:30)
[2024-02-17] MEDS: SODIUM CHLORIDE 0.9% 1,000 ML IV STA (18:31)
[2024-02-17] MEDS: PANTOPRAZOLE 40 MG/10 ML VIAL IVP STA (18:31)
[2024-02-17 18:34] LABS: Anisocytosis Slight; Basophils % (A) 0 %; Eosinophils # (A) 0.4 k/uL (0-0.7); Eosinophils % (A) 6 %; HCT 38.8 % (39.0-53.0); HGB 12.2 gm/dL (13.0-17.5); Hypochromasia Slight; Lymphocytes # (A) 1.7 k/uL (1.0-4.8); Lymphocytes % (A) 22 %; MCH 29.6 pg (25.0-35.0); MCHC 31.4 g/dL (31.0-37.0); MCV 94.1 fL (80.0-100.0); Mean Platelet Volume 9.1; Monocytes # (A) 0.5 k/uL (0-1.0); Monocytes % (A) 7 %; Neutrophils # (A) 4.8 k/uL (1.3-7.7); Neutrophils % (A) 63 %; Platelet Count 189 k/uL (150-450); RBC 4.13 m/uL (4.30-5.90); RDW 16.2 % (11.5-15.5); WBC 7.6 k/uL (3.8-10.6)
--- NOTE | 2024-02-17 19:54 | CT ---
EXAMINATION TYPE: CT abdomen pelvis wo con CT DLP: 2656.9 mGycm, Automated exposure control for dose reduction was used. DATE OF EXAM: 02/17/2024 6:54 PM COMPARISON: CT abdomen pelvis 11/13/2023. CLINICAL INDICATION:Male, 78 years old with history of pain; Abdominal pain TECHNIQUE: Axial CT abdomen pelvis wo con;Sagittal and coronal reformats were created on a separate workstation. Contrast used: mL of , (none if empty) Oral contrast used: without Oral Contrast (none if empty) FINDINGS: LOWER CHEST: Unremarkable Exam is somewhat limited due to beam artifact from patient's upper extremities overlying the abdomen. ABDOMEN LIVER: Grossly unremarkable. There is a small area of the liver dome which is not included in the fie ld-of-view. GALLBLADDER AND BILE DUCTS: Gallbladder is not visualized likely surgically absent. In the gallbladde r fossa there is redemonstrated punctate calcification which may relate to postoperative changes. PANCREAS: Similar fatty infiltration. There is mild fat stranding surrounding the pancreatic head and neck. No peripancreatic fluid collections. SPLEEN: Unremarkable. ADRENAL GLANDS: Unremarkable. KIDNEYS AND URETERS: No evidence of hydronephrosis or renal calculus. The ureters are poorly visualiz ed. There is similar bilateral perinephric fat stranding likely representing scarring. PELVIS BLADDER: Urinary bladder is again seen distended. REPRODUCTIVE: Grossly unremarkable. ABDOMEN & PELVIS STOMACH AND BOWEL: Stomach is grossly unremarkable. The small bowel is of normal caliber. There is si milar nonspecific distention of the rectosigmoid colon and portions of the descending colon. Sigmoid colon is seen measuring up to 9.7 cm. The large bowel proximal to this area of distention is within n ormal caliber. Stool is again seen within the rectum with mild rectal wall thickening and surrounding fat stranding. PERITONEUM/RETROPERITONEUM: No evidence of pneumoperitoneum. No significant ascites. There is nonspec ific mesenteric fat stranding in the mid abdomen. VASCULATURE: No evidence of aortic aneurysm. MUSCULOSKELETAL: No acute osseous abnormalities. There are multilevel degenerative changes appreciate d of the visualized spine. LYMPH NODES: No gross evidence for lymphadenopathy. SOFT TISSUE/ABDOMINAL WALL: Mild soft tissue edema most pronounced within the bilateral flanks. IMPRESSION: 1. Mild inflammation surrounding the pancreatic head/neck may relate to acute interstitial edematous pancreatitis. Correlate with lipase values. 2. There is similar distention of the distal colon and rectum that is relatively unchanged compared t o study in reference. There may be underlying proctitis causing source of distention. Patient may caity efit from colonoscopy if not already completed. 3. Similar distention of the urinary bladder. 4. Mild soft tissue anasarca.
[2024-02-17 20:13] LABS: ALT 14 U/L (4-49); AST 20 U/L (17-59); African American GFR (CKD) 51 (>60 ml/min/1.73 sqM); Albumin 3.9 g/dL (3.5-5.0); Alkaline Phosphatase 68 U/L (38-126); Amylase 58 U/L (30-110); Anion Gap 12 mmol/L; Blood Urea Nitrogen 32 mg/dL (9-20); Calcium 9.2 mg/dL (8.4-10.2); Carbon Dioxide 25 mmol/L (22-30); Chloride 101 mmol/L (98-107); Glucose 103 mg/dL (74-99); Lipase 130 U/L (23-300); Non-African American GFR(CKD) 45 (>60 ml/min/1.73 sqM); Sodium 138 mmol/L (137-145); Total Bilirubin 0.5 mg/dL (0.2-1.3); Total Protein 7.8 g/dL (6.3-8.2)
[2024-02-17] MEDS: DICYCLOMINE 10 MG/ML 2 ML AMP IM STA (22:34)
[2024-02-18 01:10] VITALS: BP 145/65; PULSE 55
== END 2024-02-18 01:09 | disposition home or self-care (01) ==
LOC: EC 16:30
CPT/HCPCS: 36415; 74176; 80053; 82150; 83605; 83690; 85025; 96361; 96372; 96374; 96375; 99285

== ENCOUNTER 2024-06-01 07:42 | Day surgery (SDC) | payer MEDICARE, OTHER ==
[2024-06-01 08:26] VITALS: RESP 16; TEMP 96.8
[2024-06-01 08:43] LABS: Glucose,Whole Blood 122 mg/dL (70-110)
[2024-06-01] MEDS: LACTATED RINGERS 1,000 ML IV SCH (08:43)
[2024-06-01] MEDS ORDERED: PROPOFOL 10 MG/ML 20 ML VIAL IV ONE (09:28)
[2024-06-01] MEDS ORDERED: PHENYLEPHRINE-0.9% NACL SYG 1,000 MCG/10 ML SYRINGE ONE (09:28)
--- NOTE | 2024-06-01 09:54 | P.PCN ---
Date of Procedure: 06/01/24 Procedure(s) Performed: BRIEF HISTORY: Patient is a 78-year-old pleasant white male scheduled for an elective colonoscopy as a part of evaluation of change in bowel habits for the last several months duration. PROCEDURE PERFORMED: Colonoscopy up to mid transverse colon. PREOPERATIVE DIAGNOSIS: Change in bowel habits. IV sedation per Anesthesia. PROCEDURE: After informed consent was obtained, the patient, was brought into the endoscopy unit. IV sedation was administered by Anesthesia under continuous monitoring. Digital rectal examination was normal. Initially the Olympus CF-160 flexible video colonoscope was then inserted in the rectum, gradually advanced into the transverse colon. At this point I could not advance the scope any further despite giving abdominal pressure and changing positions. There appeared to be a ventral hernia in the epigastric area and the scope was looping in this section despite multiple attempts. After trying from 20 minutes I terminated the procedure. Examination was performed and the scope was gradually being withdrawn. Mucosa of the transverse colon, descending colon, sigmoid colon, and rectum appeared normal. Retroflexion was performed in the rectum and no lesions were seen. The patient tolerated the procedure well. IMPRESSION: Normal-appearing colon from rectum to mid transverse colon and after this the scope could not be advanced any further because of extremely redundant colon and possible ventral hernia RECOMMENDATIONS: Findings of this examination were discussed with the patient as well as his family. Will schedule for a double contrast barium enema today. Continue with laxatives and Linzess daily and regulate bowel movements.. Follow-up in the office in 2 to 3 weeks.
[2024-06-01 11:08] VITALS: BP 120/60; PULSE 63
--- NOTE | 2024-06-01 12:44 | XR ---
EXAMINATION TYPE: XR KUB DATE OF EXAM: 06/01/2024 COMPARISON: NONE CLINICAL INDICATION: Male, 78 years old with history of prelim KUB for barium enema; TECHNIQUE: XR KUB views of the abdomen. FINDINGS: Exam is limited as only a portion of the abdomen included in the [id number]. There is a large amount of air within distended bowel throughout the visualized portion of the abdome n consistent with same day colonoscopy. Degenerative changes spine. Vascular calcifications. Arthropa thy of the hips. IMPRESSION: 1. Bowel is markedly distended and air-filled consistent with patient being immediately post colonosc opy attempt.. [facility], , 06/01/2024 12:41 PM
== END 2024-06-01 11:55 ==
LOC: ORWHC2ENDO 07:42
PROVIDERS: ATTEND Internal Medicine Gastroenterology
DX: R19.4 Change in bowel habit (principal); Z53.8 Procedure and treatment not carried out for other reasons; K43.9 Ventral hernia without obstruction or gangrene; Q43.8 Other specified congenital malformations of intestine; I48.91 Unspecified atrial fibrillation; I50.9 Heart failure, unspecified; E11.40 Type 2 diabetes mellitus with diabetic neuropathy, unspecified; E78.5 Hyperlipidemia, unspecified; G47.33 Obstructive sleep apnea (adult) (pediatric); I20.9 Angina pectoris, unspecified; N40.0 Benign prostatic hyperplasia without lower urinary tract symptoms; F03.90 Unspecified dementia, unspecified severity, without behavioral disturbance, psychotic disturbance, mood disturbance, and anxiety; K21.9 Gastro-esophageal reflux disease without esophagitis; N28.9 Disorder of kidney and ureter, unspecified; Z79.899 Other long term (current) drug therapy; Z86.73 Personal history of transient ischemic attack (TIA), and cerebral infarction without residual deficits
CPT/HCPCS: 74018; 45378; J2704; J2371

== ENCOUNTER 2024-06-17 21:19 | Observation (INO) | payer MEDICARE, OTHER ==
[2024-06-17 21:25] LABS: Glucose,Whole Blood 168 mg/dL (70-110)
--- NOTE | 2024-06-17 21:40 | ED ---
Neuro HPI - General Chief Complaint: Neuro Symptoms/Deficit Stated Complaint: Stroke Time Seen by Provider: 06/17/24 21:22 Source: EMS, RN notes reviewed, old records reviewed Mode of arrival: EMS - History of Present Illness Is the patient presenting with stroke symptoms?: Yes -: hour(s) Initial Comments: This is a 78-year-old male to the ER for evaluation. 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 Right-sided facial droop is old to this patient. Increasing weakness right arm. Patient is not on blood thinners. Patient's symptoms are resolving here in the emergency department prior to arrival during EMS transportation Location: right face (If same), right arm (Moving) Place: home Severity: mild Quality: weak, numb Improves With: time Worsens With: none On Anticoagulants: No Context: sudden onset Associated Symptoms: denies other symptoms Treatments Prior to Arrival: none - Related Data Home Medications: Home Medications Medication Instructions Recorded Confirmed Cholecalciferol [Vitamin D3 (25 25 mcg PO DAILY@0600 01/17/22 06/18/24 Mcg = 1000 Iu)] PARoxetine [Paxil] 10 mg PO HS 01/17/22 06/18/24 Primidone [Mysoline] 50 mg PO HS 01/17/22 06/18/24 Tamsulosin [Flomax] 0.4 mg PO HS@199901/17/22 06/18/24 polyethylene glycoL 3350 [Miralax] 17 gm PO BID 01/17/22 06/18/24 Apixaban [Eliquis] 5 mg PO BID 08/04/22 06/18/24 Docusate [Colace] 100 mg PO BID 09/07/22 06/18/24 Ranolazine [Ranexa] 500 mg PO BID 09/07/22 06/18/24 Bumetanide [BUMEX] 2 mg PO BID 01/06/23 06/18/24 Menthol [Biofreeze] 1 applic TOPICAL Q8H PRN 01/06/23 06/18/24 Metoprolol Tartrate [Lopressor] 25 mg PO BID 01/06/23 06/18/24 glipiZIDE [Glucotrol] 5 mg PO DAILY@1400 01/21/23 06/18/24 glipiZIDE [Glucotrol] 10 mg PO DAILY@0600 01/21/23 06/18/24 Latanoprost [Latanoprost 0.005%] 1 drop LEFT EYE HS@199906/06/23 06/18/24 Potassium Chloride ER [K-Dur 10] 10 meq PO BID 06/06/23 06/18/24 Naloxone HCl 0.4 mg SQ ONCE PRN 08/18/23 06/18/24 Naloxone HCl [Narcan] 4 mg NASAL DIRECTED PRN 08/18/23 06/18/24 Acetaminophen Tab [Tylenol] 1,000 mg PO TID@0700,1300,1900 11/13/23 06/18/24 Sennosides [Senokot] 17.2 mg PO BID 11/13/23 06/18/24 Dapagliflozin Propanediol [Farxiga] 5 mg PO DAILY@0600 05/31/24 06/18/24 Linaclotide [Linzess] 145 mcg PO DAILY@0600 05/31/24 06/18/24 Mv-Min/FA/Vit K/Lutein/Zeaxant 1 cap PO DAILY@0700,1600 05/31/24 06/18/24 [Preservision Areds 2 Plus Mv] Omeprazole 20 mg PO DAILY@0600 05/31/24 06/18/24 Fluoride (Sodium) [Sodium Fluoride 1 applic DENTAL HS 06/18/24 06/18/24 5000 Plus] Gabapentin [Neurontin] 400 mg PO TID@0700,1300,1900 06/18/24 06/18/24 Isosorbide Mononitrate ER [Imdur] 30 mg PO DAILY@0606/18/24 06/18/24 Lactulose [Cephulac] 30 gm PO DAILY@0700 06/18/24 06/18/24 Previous Rx's Medication Instructions Recorded Baclofen 10 mg PO TID@0700,1300,1900 3 Days 01/25/23 #9 tab HYDROcodone/APAP 5-325MG [[place] 1 tab PO Q8H PRN #4 tab 11/16/23 5-325] Atorvastatin [Lipitor] 80 mg PO HS 30 Days #30 tab 06/21/24 Allergies/Adverse Reactions: Allergies Allergy/AdvReac Type Severity Reaction Status Date / Time No Known Allergies Allergy Verified 06/18/24 09:17 Review of Systems ROS Statement: Those systems with pertinent positive or pertinent negative responses have been documented in the HPI. ROS Other: All systems not noted in ROS Statement are negative. General Exam - General Exam Comments Initial Comments: NIH 1 General appearance: alert, in no apparent distress Head exam: Present: atraumatic, normocephalic, normal inspection Eye exam: Present: normal appearance, PERRL, EOMI. Absent: scleral icterus, conjunctival injection, periorbital swelling ENT exam: Present: normal exam, mucous membranes moist Neck exam: Present: normal inspection. Absent: tenderness, meningismus, lymphadenopathy Respiratory exam: Present: normal lung sounds bilaterally. Absent: respiratory distress, wheezes, rales, rhonchi, stridor Cardiovascular Exam: Present: regular rate, normal rhythm, normal heart sounds. Absent: systolic murmur, diastolic murmur, rubs, gallop, clicks GI/Abdominal exam: Present: soft, normal bowel sounds. Absent: distended, tenderness, guarding, rebound, rigid Extremities exam: Present: normal inspection, full ROM, normal capillary refill. Absent: tenderness, pedal edema, joint swelling, calf tenderness Back exam: Present: normal inspection Neurological exam: Present: alert, oriented X3, CN II-XII intact Psychiatric exam: Present: normal affect, normal mood Skin exam: Present: warm, dry, intact, normal color. Absent: rash Stroke [facility] - Lab Data Result diagrams: 06/21/24 07:07 06/21/24 07:03 Lab Results 06/17/24 06/17/24 06/17/24 Range/Units 21:24 21:27 21:27 WBC 7.2 (3.8-10.6) k/uL RBC 4.24 L (4.30-5.90) m/uL Hgb 13.1 (13.0-17.5) gm/dL Hct 39.9 (39.0-53.0) % MCV 94.2 (80.0-100.0) fL MCH 30.8 (25.0-35.0) pg MCHC 32.7 (31.0-37.0) g/dL RDW 15.6 H (11.5-15.5) % Plt Count 230 (150-450) k/uL MPV 9.2 Neutrophils % 65 % Lymphocytes % 20 % Monocytes % 7 % Eosinophils % 5 % Basophils % 1 % Neutrophils # 4.7 (1.3-7.7) k/uL Lymphocytes # 1.5 (1.0-4.8) k/uL Monocytes # 0.5 (0-1.0) k/uL Eosinophils # 0.4 (0-0.7) k/uL Basophils # 0.0 (0-0.2) k/uL Hypochromasia PT 11.4 (10.0-12.5) sec INR 1.0 (<1.2) APTT 24.9 (22.0-30.0) sec Sodium (137-145) mmol/L Potassium (3.5-5.1) mmol/L Chloride (98-107) mmol/L Carbon Dioxide (22-30) mmol/L Anion Gap mmol/L BUN (9-20) mg/dL Creatinine (0.66-1.25) mg/dL Est GFR (CKD-EPI)AfAm (>60 ml/min/1.73 sqM) Est GFR (CKD-EPI)NonAf (>60 ml/min/1.73 sqM) Glucose (74-99) mg/dL POC Glucose (mg/dL) 168 H (70-110) mg/dL POC Glu Risk Control Director ID Burgess Castellanos Estimated Ave Glu mg/dL mg/dL Hemoglobin A1c (<=6.0) % Calcium (8.4-10.2) mg/dL Total Bilirubin (0.2-1.3) mg/dL AST (17-59) U/L ALT (4-49) U/L Alkaline Phosphatase (38-126) U/L Creatine Kinase (55-170) U/L Troponin I (0.000-0.034) ng/mL NT-Pro-B Natriuret Pep pg/mL Total Protein (6.3-8.2) g/dL Albumin (3.5-5.0) g/dL Triglycerides (0.00-149.00) mg/dL Cholesterol (0.00-200.00) mg/dL LDL Cholesterol, Calc (0.0-131.0) mg/dL VLDL Cholesterol, Calc (5.00-40.00) mg/dL HDL Cholesterol (40.00-60.00) mg/dL Cholesterol/HDL Ratio Ratio Urine Color Urine Appearance (Clear) Urine pH (5.0-8.0) Ur Specific [place] (1.001-1.035) Urine Protein (Negative) Urine Glucose (UA) (Negative) Urine Ketones (Negative) Urine Blood (Negative) Urine Nitrite (Negative) Urine Bilirubin (Negative) Urine Urobilinogen (<2.0) mg/dL Ur Leukocyte Esterase (Negative) Urine RBC (0-5) /hpf Urine WBC (0-5) /hpf Urine WBC Clumps (None) /hpf Urine Bacteria (None) /hpf Urine Mucus (None) /hpf Urine Yeast (Budding) (None) /hpf 06/17/24 06/17/24 06/17/24 Range/Units 21:27 21:27 21:27 WBC (3.8-10.6) k/uL RBC (4.30-5.90) m/uL Hgb (13.0-17.5) gm/dL Hct (39.0-53.0) % MCV (80.0-100.0) fL MCH (25.0-35.0) pg MCHC (31.0-37.0) g/dL RDW (11.5-15.5) % Plt Count (150-450) k/uL MPV Neutrophils % % Lymphocytes % % Monocytes % % Eosinophils % % Basophils % % Neutrophils # (1.3-7.7) k/uL Lymphocytes # (1.0-4.8) k/uL Monocytes # (0-1.0) k/uL Eosinophils # (0-0.7) k/uL Basophils # (0-0.2) k/uL Hypochromasia PT (10.0-12.5) sec INR (<1.2) APTT (22.0-30.0) sec Sodium 138 (137-145) mmol/L Potassium 4.8 (3.5-5.1) mmol/L Chloride 100 (98-107) mmol/L Carbon Dioxide 26 (22-30) mmol/L Anion Gap 12 mmol/L BUN 28 H (9-20) mg/dL Creatinine 1.67 H (0.66-1.25) mg/dL Est GFR (CKD-EPI)AfAm 44 (>60 ml/min/1.73 sqM) Est GFR (CKD-EPI)NonAf 38 (>60 ml/min/1.73 sqM) Glucose 164 H (74-99) mg/dL POC Glucose (mg/dL) (70-110) mg/dL POC Glu Risk Control Director ID Estimated Ave Glu mg/dL mg/dL Hemoglobin A1c (<=6.0) % Calcium 8.9 (8.4-10.2) mg/dL Total Bilirubin 0.4 (0.2-1.3) mg/dL AST 22 (17-59) U/L ALT 16 (4-49) U/L Alkaline Phosphatase 75 (38-126) U/L Creatine Kinase 51 L (55-170) U/L Troponin I <0.012 (0.000-0.034) ng/mL NT-Pro-B Natriuret Pep pg/mL Total Protein 7.9 (6.3-8.2) g/dL Albumin 4.0 (3.5-5.0) g/dL Triglycerides 165.00 H (0.00-149.00) mg/dL Cholesterol 139.00 (0.00-200.00) mg/dL LDL Cholesterol, Calc 70.7 (0.0-131.0) mg/dL VLDL Cholesterol, Calc 33.00 (5.00-40.00) mg/dL HDL Cholesterol 35.30 L (40.00-60.00) mg/dL Cholesterol/HDL Ratio 3.94 Ratio Urine Color Urine Appearance (Clear) Urine pH (5.0-8.0) Ur Specific [place] (1.001-1.035) Urine Protein (Negative) Urine Glucose (UA) (Negative) Urine Ketones (Negative) Urine Blood (Negative) Urine Nitrite (Negative) Urine Bilirubin (Negative) Urine Urobilinogen (<2.0) mg/dL Ur Leukocyte Esterase (Negative) Urine RBC (0-5) /hpf Urine WBC (0-5) /hpf Urine WBC Clumps (None) /hpf Urine Bacteria (None) /hpf Urine Mucus (None) /hpf Urine Yeast (Budding) (None) /hpf 06/17/24 06/18/24 06/18/24 Range/Units 22:24 15:42 15:56 WBC (3.8-10.6) k/uL RBC (4.30-5.90) m/uL Hgb (13.0-17.5) gm/dL Hct (39.0-53.0) % MCV (80.0-100.0) fL MCH (25.0-35.0) pg MCHC (31.0-37.0) g/dL RDW (11.5-15.5) % Plt Count (150-450) k/uL MPV Neutrophils % % Lymphocytes % % Monocytes % % Eosinophils % % Basophils % % Neutrophils # (1.3-7.7) k/uL Lymphocytes # (1.0-4.8) k/uL Monocytes # (0-1.0) k/uL Eosinophils # (0-0.7) k/uL Basophils # (0-0.2) k/uL Hypochromasia PT (10.0-12.5) sec INR (<1.2) APTT (22.0-30.0) sec Sodium (137-145) mmol/L Potassium (3.5-5.1) mmol/L Chloride (98-107) mmol/L Carbon Dioxide (22-30) mmol/L Anion Gap mmol/L BUN (9-20) mg/dL Creatinine (0.66-1.25) mg/dL Est GFR (CKD-EPI)AfAm (>60 ml/min/1.73 sqM) Est GFR (CKD-EPI)NonAf (>60 ml/min/1.73 sqM) Glucose (74-99) mg/dL POC Glucose (mg/dL) 180 H (70-110) mg/dL POC Glu Risk Control Director ID Radha Slater Estimated Ave Glu mg/dL mg/dL Hemoglobin A1c (<=6.0) % Calcium (8.4-10.2) mg/dL Total Bilirubin (0.2-1.3) mg/dL AST (17-59) U/L ALT (4-49) U/L Alkaline Phosphatase (38-126) U/L Creatine Kinase (55-170) U/L Troponin I (0.000-0.034) ng/mL NT-Pro-B Natriuret Pep 1430 pg/mL Total Protein (6.3-8.2) g/dL Albumin (3.5-5.0) g/dL Triglycerides (0.00-149.00) mg/dL Cholesterol (0.00-200.00) mg/dL LDL Cholesterol, Calc (0.0-131.0) mg/dL VLDL Cholesterol, Calc (5.00-40.00) mg/dL HDL Cholesterol (40.00-60.00) mg/dL Cholesterol/HDL Ratio Ratio Urine Color Colorless Urine Appearance Cloudy (Clear) Urine pH 5.5 (5.0-8.0) Ur Specific [place] 1.014 (1.001-1.035) Urine Protein Negative (Negative) Urine Glucose (UA) 3+ H (Negative) Urine Ketones Negative (Negative) Urine Blood Trace H (Negative) Urine Nitrite Negative (Negative) Urine Bilirubin Negative (Negative) Urine Urobilinogen <2.0 (<2.0) mg/dL Ur Leukocyte Esterase Large H (Negative) Urine RBC 3 (0-5) /hpf Urine WBC >182 H (0-5) /hpf Urine WBC Clumps Occasional H (None) /hpf Urine Bacteria Many H (None) /hpf Urine Mucus Rare H (None) /hpf Urine Yeast (Budding) Few H (None) /hpf 06/18/24 06/19/24 06/19/24 Range/Units 19:51 06:16 06:27 WBC (3.8-10.6) k/uL RBC (4.30-5.90) m/uL Hgb (13.0-17.5) gm/dL Hct (39.0-53.0) % MCV (80.0-100.0) fL MCH (25.0-35.0) pg MCHC (31.0-37.0) g/dL RDW (11.5-15.5) % Plt Count (150-450) k/uL MPV Neutrophils % % Lymphocytes % % Monocytes % % Eosinophils % % Basophils % % Neutrophils # (1.3-7.7) k/uL Lymphocytes # (1.0-4.8) k/uL Monocytes # (0-1.0) k/uL Eosinophils # (0-0.7) k/uL Basophils # (0-0.2) k/uL Hypochromasia PT (10.0-12.5) sec INR (<1.2) APTT (22.0-30.0) sec Sodium (137-145) mmol/L Potassium (3.5-5.1) mmol/L Chloride (98-107) mmol/L Carbon Dioxide (22-30) mmol/L Anion Gap mmol/L BUN (9-20) mg/dL Creatinine (0.66-1.25) mg/dL Est GFR (CKD-EPI)AfAm (>60 ml/min/1.73 sqM) Est GFR (CKD-EPI)NonAf (>60 ml/min/1.73 sqM) Glucose (74-99) mg/dL POC Glucose (mg/dL) 166 H 132 H (70-110) mg/dL POC Glu Risk Control Director ID Too Pfeiffer Estimated Ave Glu mg/dL 174 mg/dL Hemoglobin A1c 7.7 H (<=6.0) % Calcium (8.4-10.2) mg/dL Total Bilirubin (0.2-1.3) mg/dL AST (17-59) U/L ALT (4-49) U/L Alkaline Phosphatase (38-126) U/L Creatine Kinase (55-170) U/L Troponin I (0.000-0.034) ng/mL NT-Pro-B Natriuret Pep pg/mL Total Protein (6.3-8.2) g/dL Albumin (3.5-5.0) g/dL Triglycerides (0.00-149.00) mg/dL Cholesterol (0.00-200.00) mg/dL LDL Cholesterol, Calc (0.0-131.0) mg/dL VLDL Cholesterol, Calc (5.00-40.00) mg/dL HDL Cholesterol (40.00-60.00) mg/dL Cholesterol/HDL Ratio Ratio Urine Color Urine Appearance (Clear) Urine pH (5.0-8.0) Ur Specific [place] (1.001-1.035) Urine Protein (Negative) Urine Glucose (UA) (Negative) Urine Ketones (Negative) Urine Blood (Negative) Urine Nitrite (Negative) Urine Bilirubin (Negative) Urine Urobilinogen (<2.0) mg/dL Ur Leukocyte Esterase (Negative) Urine RBC (0-5) /hpf Urine WBC (0-5) /hpf Urine WBC Clumps (None) /hpf Urine Bacteria (None) /hpf Urine Mucus (None) /hpf Urine Yeast (Budding) (None) /hpf 06/19/24 06/19/24 Range/Units 06:27 06:27 WBC 7.5 (3.8-10.6) k/uL RBC 4.13 L (4.30-5.90) m/uL Hgb 12.6 L (13.0-17.5) gm/dL Hct 39.8 (39.0-53.0) % MCV 96.3 (80.0-100.0) fL MCH 30.5 (25.0-35.0) pg MCHC 31.7 (31.0-37.0) g/dL RDW 15.3 (11.5-15.5) % Plt Count 232 (150-450) k/uL MPV 8.5 Neutrophils % 63 % Lymphocytes % 20 % Monocytes % 8 % Eosinophils % 6 % Basophils % 1 % Neutrophils # 4.7 (1.3-7.7) k/uL Lymphocytes # 1.5 (1.0-4.8) k/uL Monocytes # 0.6 (0-1.0) k/uL Eosinophils # 0.4 (0-0.7) k/uL Basophils # 0.0 (0-0.2) k/uL Hypochromasia Moderate PT (10.0-12.5) sec INR (<1.2) APTT (22.0-30.0) sec Sodium 139 (137-145) mmol/L Potassium 4.4 (3.5-5.1) mmol/L Chloride 103 (98-107) mmol/L Carbon Dioxide 27 (22-30) mmol/L Anion Gap 9 mmol/L BUN 24 H (9-20) mg/dL Creatinine 1.37 H (0.66-1.25) mg/dL Est GFR (CKD-EPI)AfAm 56 (>60 ml/min/1.73 sqM) Est GFR (CKD-EPI)NonAf 48 (>60 ml/min/1.73 sqM) Glucose 123 H (74-99) mg/dL POC Glucose (mg/dL) (70-110) mg/dL POC Glu Risk Control Director ID Estimated Ave Glu mg/dL mg/dL Hemoglobin A1c (<=6.0) % Calcium 8.9 (8.4-10.2) mg/dL Total Bilirubin (0.2-1.3) mg/dL AST (17-59) U/L ALT (4-49) U/L Alkaline Phosphatase (38-126) U/L Creatine Kinase (55-170) U/L Troponin I (0.000-0.034) ng/mL NT-Pro-B Natriuret Pep pg/mL Total Protein (6.3-8.2) g/dL Albumin (3.5-5.0) g/dL Triglycerides (0.00-149.00) mg/dL Cholesterol (0.00-200.00) mg/dL LDL Cholesterol, Calc (0.0-131.0) mg/dL VLDL Cholesterol, Calc (5.00-40.00) mg/dL HDL Cholesterol (40.00-60.00) mg/dL Cholesterol/HDL Ratio Ratio Urine Color Urine Appearance (Clear) Urine pH (5.0-8.0) Ur Specific [place] (1.001-1.035) Urine Protein (Negative) Urine Glucose (UA) (Negative) Urine Ketones (Negative) Urine Blood (Negative) Urine Nitrite (Negative) Urine Bilirubin (Negative) Urine Urobilinogen (<2.0) mg/dL Ur Leukocyte Esterase (Negative) Urine RBC (0-5) /hpf Urine WBC (0-5) /hpf Urine WBC Clumps (None) /hpf Urine Bacteria (None) /hpf Urine Mucus (None) /hpf Urine Yeast (Budding) (None) /hpf - NIH Stroke Scale 1a. Level of Consciousness: (0) alert 1b. LOC Questions: (0) answers correctly 1c. LOC Commands: (0) performs tasks correctly 2. Best Gaze: (0) normal 3. Visual: (0) no visual loss 4. Facial Palsy: (1) minor paralysis (Due to prior CVA) 5a. Motor Arm Left: (0) no drift 5b. Motor Arm Right: (1) drift 6a. Motor Leg Left: (0) no drift 6b. Motor Leg Right: (0) no drift 7. Limb Ataxia: (1) present 1 limb 8. Sensory: (0) normal 9. Best Language: (0) no aphasia 10. Dysarthria: (0) normal 11. Extinction/Inattention: (0) no abnormality - Thrombolytic Inclusion/Exclusion Thrombolytic Inclusion Criteria: Symptom Onset < 4.5 h - Core Measures Measure Exclusions: contraindicated (pt Is on Eliquis) - Medical Decision Making 78 male to the ER for evaluation of CVA symptoms. Patient symptoms are resolved remain resolved here in the ER. 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 in summer for possible ileus, no current wounds or skin breakdown per nurse from [facility] History of Any Multi-Drug Resistant Organisms: None Reported Past Surgical History: Appendectomy, Orthopedic Surgery Past Anesthesia/Blood Transfusion Reactions: No Reported Reaction Past Psychological History: No Psychological Hx Reported, Depression Smoking Status: Never smoker Course Vital Signs 06/17/24 06/17/24 06/17/24 21:21 21:37 21:52 Temperature 97.0 F L Pulse Rate 69 60 63 Respiratory 18 18 18 Rate Blood Pressure 132/75 130/77 129/79 O2 Sat by Pulse 99 98 98 Oximetry 06/17/24 06/17/24 06/17/24 22:22 22:52 23:37 Temperature Pulse Rate 59 L 62 64 Respiratory 18 18 18 Rate Blood Pressure 138/85 143/71 133/77 O2 Sat by Pulse 99 99 99 Oximetry 06/18/24 06/18/24 06/18/24 00:07 00:37 01:07 Temperature Pulse Rate 70 60 66 Respiratory 18 18 18 Rate Blood Pressure 115/80 133/74 144/72 O2 Sat by Pulse 99 99 99 Oximetry 06/18/24 06/18/24 06/18/24 01:37 02:07 02:37 Temperature Pulse Rate 64 64 64 Respiratory 18 18 18 Rate Blood Pressure 135/83 118/72 159/74 O2 Sat by Pulse 99 99 99 Oximetry 06/18/24 06/18/24 06/18/24 03:07 06:07 08:00 Temperature 97.8 F Pulse Rate 65 60 62 Respiratory 18 18 20 Rate Blood Pressure 143/66 142/58 130/58 O2 Sat by Pulse 99 99 98 Oximetry 06/18/24 06/18/24 06/18/24 08:18 08:35 09:00 Temperature 97.7 F 97.5 F L Pulse Rate 62 60 Respiratory 18 18 Rate Blood Pressure 132/80 147/84 O2 Sat by Pulse 96 98 98 Oximetry 06/18/24 06/18/24 06/18/24 10:00 11:00 13:00 Temperature 97.8 F Pulse Rate 64 74 69 Respiratory 18 18 18 Rate Blood Pressure 155/78 133/94 138/83 O2 Sat by Pulse 98 98 98 Oximetry 06/18/24 06/18/24 06/18/24 13:06 13:11 14:00 Temperature 97.8 F 97.8 F Pulse Rate 69 69 67 Respiratory 18 18 18 Rate Blood Pressure 138/83 138/83 142/81 O2 Sat by Pulse 98 98 97 Oximetry 06/18/24 15:20 Temperature Pulse Rate 61 Respiratory 18 Rate Blood Pressure 160/79 O2 Sat by Pulse 97 Oximetry - Reevaluation(s) Reevaluation #1: 06/17/24 21:45 Records reviewed. Patient has a code stroke here in the emergency department Reevaluation #2: 06/17/24 21:45 Patient symptoms remain improved Reevaluation #3: Informed of results and questions answered Reevaluation #4: Was pt. sent in by a medical professional or institution (, PA, PONY WORKER, urgent care, hospital, or [facility]...) When possible be specific @ -no Did you speak to anyone other than the patient for history (EMS, parent, family, police, friend...)? What history was obtained from this source @ -no Did you review nursing and triage notes (agree or disagree)? Why? @ -agree Are old charts reviewed (outside hosp., previous admission, EMS record, old EKG, old radiological studies, urgent care reports/EKG's, [facility] records)? Report findings @ -yes Differential Diagnosis (chest pain, altered mental status, abdominal pain women, abdominal pain men, vaginal bleeding, weakness, fever, dyspnea, syncope, headache, dizziness, GI bleed, back pain, seizure, CVA, palpatations, mental health, musculoskeletal)? @ -prior EKG interpreted by me (3pts min.). @ -yes X-rays interpreted by me (1pt min.). @ -no CT interpreted by me (1pt min.). @ -Negative for acute disease U/S interpreted by me (1pt. min.). @ -no What testing was considered but not performed or refused? (CT, X-rays, U/S, labs)? Why? @ -none What meds were considered but not given or refused? Why? @ -none Did you discuss the management of the patient with other professionals (professionals i.e. , PA, PONY WORKER, lab, RT, psych nurse, social service agency director, accounts payable accountant, t eacher, chief innovation officer, casework manager)? Give summary @ -no Was smoking cessation discussed for >3mins.? @ -no Was critical care preformed (if so, how long)? @ -no Were there social determinants of health that impacted care today? How? (Homelessness, low income, unemployed, alcoholism, drug addiction, transportation, low edu. Level, literacy, decrease access to med. care, correction, rehab)? @ -none Was there de-escalation of care discussed even if they declined (Discuss DNR or withdrawal of care, Hospice)? DNR status @ -no What co-morbidities impacted this encounter? (DM, HTN, Smoking, COPD, CAD, Cancer, CVA, ARF, Chemo, Hep., AIDS, mental health diagnosis, sleep apnea, morbid obesity)? @ -none Was patient admitted / discharged? Hospital course, mention meds given and route, prescriptions, significant lab abnormalities, going to OR and other pertinent info. @ - 78 male to the ER for evaluation of CVA symptoms. Patient symptoms are resolved remain resolved here in the ER. Patient will be admitted for neuromonitoring Admitted Undiagnosed new problem with uncertain prognosis? @ -no Drug Therapy requiring intensive monitoring for toxicity (Heparin, Nitro, Insulin, Cardizem)? @ -no Were any procedures done? @ -no Diagnosis/symptom? @ -CVA Acute, or Chronic, or Acute on Chronic? @ -Acute Uncomplicated (without systemic symptoms) or Complicated (systemic symptoms)? @ -Complicated Side effects of treatment? @ -no Exacerbation, Progression, or Severe Exacerbation? @ -exacerbation Poses a threat to life or bodily function? How? (Chest pain, [place], [place], pneumonia, PE, COPD, DKA, ARF, appy, cholecystitis, CVA, Diverticulitis, Homicidal, Suicidal, threat to staff... and all critical care pts) @ -yes extremes of age Reevaluation #5: Differential CVA Ischemic stroke, hemorrhagic stroke, brain tumor, atypical migraine, Wernicke's encephalopathy, seizure, multiple sclerosis, meningitis, encephalitis, hypoglycemia, Guillain-Singleton, electrolytes disturbance, myasthenia gravis.... This is not meant to be an all-inclusive list - Consultations Consultation #1: Spoke with neurointerventional list okay to admit this patient no tPA Consultation #2: Spoke with admitting physicians [facility] who agreed to admit this patient Disposition Clinical Impression: TIA (transient ischemic attack), Cerebrovascular accident (CVA) Disposition: ADMITTED IP TO THIS HOSP Condition: Fair Is patient prescribed a controlled substance at d/c from ED?: No Time of Disposition: 22:30
[2024-06-17 21:44] LABS: Basophils % (A) 1 %; Eosinophils # (A) 0.4 k/uL (0-0.7); Eosinophils % (A) 5 %; HCT 39.9 % (39.0-53.0); HGB 13.1 gm/dL (13.0-17.5); Lymphocytes # (A) 1.5 k/uL (1.0-4.8); Lymphocytes % (A) 20 %; MCH 30.8 pg (25.0-35.0); MCHC 32.7 g/dL (31.0-37.0); MCV 94.2 fL (80.0-100.0); Mean Platelet Volume 9.2; Monocytes # (A) 0.5 k/uL (0-1.0); Monocytes % (A) 7 %; Neutrophils # (A) 4.7 k/uL (1.3-7.7); Neutrophils % (A) 65 %; Platelet Count 230 k/uL (150-450); RBC 4.24 m/uL (4.30-5.90); RDW 15.6 % (11.5-15.5); WBC 7.2 k/uL (3.8-10.6)
--- NOTE | 2024-06-17 21:46 | CT ---
EXAMINATION TYPE: CODE STROKE: CT brain wo contr DATE OF EXAM: 06/17/2024 9:40 PM COMPARISON: 06/06/2023 CLINICAL INDICATION: Male, 78 years old with history of Neuro deficit, acute, stroke suspected, cva TECHNIQUE: CT of the brain is performed utilizing 3 mm thick sections through the posterior fossa and 3 mm thick sections through the remaining calvarium. Study is performed within 24 hours of arrival to the hospital. Contrast used: mL of , (none if empty) CT DLP: 1160.6 mGycm, Automated exposure control for dose reduction was used. FINDINGS: No abnormal hyperdensity is present to suggest an acute intracranial hemorrhage. No mass lesion is evident. No acute infarcts are evident. Appears to be some chronic hypodensity within the left lower occipital lobe may be an old ischemic change. Mild periventricular white matter hypodensity is present likely on the basis of chronic white matter ischemic change Ventricles and sulci are appropriate for the patient age. Mucosal thickening is through anterior mid ethmoid air cells bilaterally and posterior right ethmoid air cells. Remaining paranasal sinuses and mastoid air cells are clear. There is a left septal deviat ion. IMPRESSION: 1. No acute intracranial process. Follow up MRI can be performed as clinically indicated. 2. Chronic appearing periventricular white matter ischemic-type changes with atrophy. 3. Some stable focal white matter hypodensities in the posterior inferior left occipital lobe, presen t previously may be prior ischemic changes [facility], , 06/17/2024 9:43 PM
[2024-06-17 21:59] LABS: ALT 16 U/L (4-49); AST 22 U/L (17-59); African American GFR (CKD) 44 (>60 ml/min/1.73 sqM); Alkaline Phosphatase 75 U/L (38-126); Anion Gap 12 mmol/L; Blood Urea Nitrogen 28 mg/dL (9-20); Calcium 8.9 mg/dL (8.4-10.2); Carbon Dioxide 26 mmol/L (22-30); Chloride 100 mmol/L (98-107); Creatine Kinase 51 U/L (55-170); Glucose 164 mg/dL (74-99); Non-African American GFR(CKD) 38 (>60 ml/min/1.73 sqM); Potassium 4.8 mmol/L (3.5-5.1); Sodium 138 mmol/L (137-145); Total Bilirubin 0.4 mg/dL (0.2-1.3); Total Protein 7.9 g/dL (6.3-8.2)
[2024-06-17] MEDS: SODIUM CHLORIDE 0.9% 1,000 ML IV STA (22:01)
--- NOTE | 2024-06-17 22:08 | CT ---
EXAMINATION TYPE: CT angio head neck DATE OF EXAM: 06/17/2024 9:52 PM COMPARISON: None. CLINICAL INDICATION: Male, 78 years old with history of Neuro deficit, acute, stroke suspected, cva TECHNIQUE: CTA scan is performed with axial images are obtained, coronal and sagittal reformatted reina ges are reviewed. 3-D reconstructed images are created on an independent workstation and reviewed. S ource images are reviewed. NASCET criteria was used in interpretation of this exam? Contrast used:65cc mL of Isovue 370 with IV Contrast, (none if empty) Oral contrast used: (none if empty) CT DLP: 760.6 mGycm, Automated exposure control for dose reduction was used. FINDINGS: Carotid/Vascular Structures: There is a 3 vessel arch. Common carotid arteries bifurcate into internal and external carotid arteries without significant cleopatra w limiting stenosis. Carotid artery calcifications present at the bifurcations. Vertebral arteries are codominant. Internal carotid arteries and vertebral arteries are patent to the skull base. Cervical of [place]: Vertebral basilar system appears normal. Posterior cerebral vasculature is unrema rkable. Internal carotid arteries bifurcate normally into A1 and M1 segments. Left A1 segment may be slightly hypoplastic A2 segments are normal. The anterior communicating artery is patent. The right posterior communicating artery is absent. The left posterior communicating artery is absent. IMPRESSION: 1. No flow-limiting stenosis bilateral carotid bifurcations. 2. Normal [place] [facility] [place] [facility] Shraddha Ruth, , 06/17/2024 10:05 PM
[2024-06-17 22:14] LABS: Partial Thromboplastin Time 24.9 sec (22.0-30.0); Prothrombin Time 11.4 sec (10.0-12.5)
[2024-06-17] MEDS: SODIUM CHLORIDE 0.9% 1,000 ML IV SCH (22:32)
[2024-06-17] MEDS: ASPIRIN 325 MG TAB PO STA (22:32)
[2024-06-17 23:34] LABS: Appearance,Urine Cloudy (Clear); Bacteria,Urine Many /hpf; Bilirubin,Urine Negative (Negative); Blood,Urine Trace (Negative); Budding Yeast,Urine Few /hpf; Color,Urine Colorless; Glucose,Urine (UA) 3+ (Negative); Ketones,Urine Negative (Negative); Leukocyte Esterase,Urine Large (Negative); Mucus,Urine Rare /hpf; Nitrite,Urine Negative (Negative); PH, Urine 5.5 (5.0-8.0); Protein,Urine Negative (Negative); RBC,Urine 3 /hpf (0-5); Specific Gravity,Urine 1.014 (1.001-1.035); Urobilinogen,Urine <2.0 mg/dL (<2.0); WBC,Urine >182 /hpf (0-5)
[2024-06-18] MEDS: ASPIRIN 325 MG TAB PO SCH (08:31)
[2024-06-18 09:24] LABS: Chol/HDL Ratio 3.94 Ratio; LDL Cholesterol,Calculated 70.7 mg/dL (0.0-131.0)
[2024-06-18] MEDS ORDERED: DEXTROSE 50% SYRINGE 50 ML IVP PRN ×2 (15:28)
[2024-06-18 15:43] LABS: Glucose,Whole Blood 180 mg/dL (70-110)
--- NOTE | 2024-06-18 15:43 | P.HPIM ---
History of Present Illness H&P Date: 06/18/24 Chief Complaint: Right arm weakness Patient is a 78-year-old male with paroxysmal atrial fibrillation, history of chest pain/angina, heart failure with most recent LVEF estimated at 55 to 60% (Per echocardiogram done in 2022), history of CVA/TIA, diabetes mellitus, GERD, hyperlipidemia, chronic kidney disease stage III, and obstructive sleep apnea presented to the emergency department via EMS with increasing weakness in the right arm and slurred speech that started last night. 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 Right-sided facial droop is old to this patient. Patient reported that last night he began to notice new onset slurred speech that lasted for 2 hours and then it went away afterwards. He also reported some perioral numbness around the same time. Patient reported that slurring of speech is something he has never experienced before. He does report a chronic right-sided weakness along with right-sided facial droop and slightly decreased sensation on the right side. He was seen at bedside in the ED. He still reports some right-sided weakness but is slurring of speech has improved. He denies other complaints at this time. Denies fever, chills, chest pain, shortness of breath, belly pain, dysuria, upper or lower extremity tingling or numbness. ED documentation reviewed. In the ED patient was treated with a bolus of normal saline and aspirin 325 mg Vitals on admission temperature 97.5, pulse rate 62, respiratory rate 18, blood pressure 132/80, O2 sat 98% on room air EKG independently interpreted as atrial fibrillation with a ventricular rate of 65 bpm, QTc interval of [address] of brain shows no acute intracranial process. Follow-up MRI can be performed as clinically indicated. Chronic appearing periventricular white matter ischemictype changes with atrophy. Some stable focal white matter hypointensities in the posterior inferior left occipital lobe, present previously may be prior ischemic changes CT angio of head and neck showed no flow-limiting stenosis bilateral carotid bifurcations. Normal [place] [facility] [place]. Labs on admission show WBC 7.2, hemoglobin 13.1, hematocrit 39.9, platelet 230, sodium 138, potassium 4.9, chloride 100, carbon dioxide 26, BUN 28, creatinine 1.67, glucose 168, creatinine kinase 51, troponin less than 0.012 UA shows large leukocyte esterase, greater than 182 WBC, negative nitrate Review of systems: Pertinent positives and negatives as discussed in HPI, a complete review of systems was performed and all other systems are negative. PMH: paroxysmal atrial fibrillation, history of chest pain/angina, heart failure with most recent LVEF estimated at 55 to 60% (Per echocardiogram done in 2022), history of CVA/TIA, diabetes mellitus, GERD, hyperlipidemia, chronic kidney disease stage III, and obstructive sleep apnea PSH: Appendectomy and orthopedic surgery FMH: No pertinent family history Allergies: No known drug allergies Social history: Tobacco: Never smoker Alcohol: No alcohol use Recreational drugs: No drug use Travel: No travel history Sick contacts: No sick contacts Physical examination: Vital signs reviewed General: nontoxic, no distress, appears at stated age Derm: warm, dry, intact Head: atraumatic, normocephalic, symmetric Eyes: EOMI, anicteric sclera Mouth: no lip lesion, mucus membranes moist Cardiovascular: S1 S2 reg, no murmur Lungs: CTA bilateral, no rhonchi, no rales, no accessory muscle use Abdominal: soft, non-tender to palpation Extremities: No cyanosis, clubbing, or pedal edema. Neuro: Alert, Gross neurological examination did not reveal any focal deficits. Slight right-sided facial droop. Reduced muscle strength on the right upper and lower extremity and slightly reduced sensation on the right side Psych: well appearing, appropriate affect Assessment/Plan: Patient is a 78-year-old male with paroxysmal atrial fibrillation, history of chest pain/angina, heart failure with most recent LVEF estimated at 55 to 60% (Per echocardiogram done in 2022), history of CVA/TIA, diabetes mellitus, GERD, hyperlipidemia, chronic kidney disease stage III, and obstructive sleep apnea presented to the emergency department via EMS with increasing weakness in the right arm. Patient will be admitted to internal medicine service. Active: #. Acute ischemic stroke/TIA #. History of congestive heart failure CT of brain shows no acute intracranial process. Follow-up MRI can be performed as clinically indicated. CT angio of the head and neck showed no flow limiting stenosis bilateral carotid bifurcation. Normal [place]. Neuro has been consulted by ED Fall precautions Continue cardiac monitoring Consult PT/OT Consult speech therapy Continue Lipitor 80 mg at bedtime Continue aspirin 81 mg daily Order BNP Order chest x-ray #. Urinary tract infection Greater than 182 WBC, negative for nitrite, large amount of leukocyte esterase Patient denies urinary symptoms at this time. #. Elevated creatinine likely due to chronic kidney disease stage III Creatinine 1.67 Continue normal saline at 100 cc an hour Monitor morning BMP Continue Bumex 2 mg twice daily #. Hyperglycemia, with a history of type 2 diabetes mellitus Glucose 164 Hold home diabetic medications Initiate low-dose sliding scale insulin Chronic: #. History of atrial fibrillation Restart apixaban 5 mg twice daily #. Hyperlipidemia Continue atorvastatin 80 mg at bedtime #. GERD Restart omeprazole 20 mg daily F: No restrictions E: Replete as needed N: N.p.o. 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 in summer for possible ileus, no current wounds or skin breakdown per nurse from [facility] History of Any Multi-Drug Resistant Organisms: None Reported Past Surgical History: Appendectomy, Orthopedic Surgery Past Anesthesia/Blood Transfusion Reactions: No Reported Reaction Past Psychological History: No Psychological Hx Reported, Depression Smoking Status: Never smoker Medications and Allergies Home Medications Medication Instructions Recorded Confirmed Type Cholecalciferol [Vitamin D3 (25 25 mcg PO DAILY@0600 01/17/22 06/18/24 History Mcg = 1000 Iu)] PARoxetine [Paxil] 10 mg PO HS 01/17/22 06/18/24 History Primidone [Mysoline] 50 mg PO HS 01/17/22 06/18/24 History Tamsulosin [Flomax] 0.4 mg PO HS@199901/17/22 06/18/24 History polyethylene glycoL 3350 [Miralax] 17 gm PO BID 01/17/22 06/18/24 History Atorvastatin [Lipitor] 40 mg PO HS@199903/01/22 06/18/24 History Apixaban [Eliquis] 5 mg PO BID 08/04/22 06/18/24 History Docusate [Colace] 100 mg PO BID 09/07/22 06/18/24 History Ranolazine [Ranexa] 500 mg PO BID 09/07/22 06/18/24 History Bumetanide [BUMEX] 2 mg PO BID 01/06/23 06/18/24 History Menthol [Biofreeze] 1 applic TOPICAL Q8H PRN 01/06/23 06/18/24 History Metoprolol Tartrate [Lopressor] 25 mg PO BID 01/06/23 06/18/24 History glipiZIDE [Glucotrol] 5 mg PO DAILY@1400 01/21/23 06/18/24 History glipiZIDE [Glucotrol] 10 mg PO DAILY@0600 01/21/23 06/18/24 History Baclofen 10 mg PO TID@0700,1300,1900 3 Days 01/25/23 06/18/24 Rx #9 tab Latanoprost [Latanoprost 0.005%] 1 drop LEFT EYE HS@199906/06/23 06/18/24 Histo ry Potassium Chloride ER [K-Dur 10] 10 meq PO BID 06/06/23 06/18/24 History Naloxone HCl 0.4 mg SQ ONCE PRN 08/18/23 06/18/24 History Naloxone HCl [Narcan] 4 mg NASAL DIRECTED PRN 08/18/23 06/18/24 History Acetaminophen Tab [Tylenol] 1,000 mg PO TID@0700,1300,1900 11/13/23 06/18/24 History Sennosides [Senokot] 17.2 mg PO BID 11/13/23 06/18/24 History HYDROcodone/APAP 5-325MG [[place] 1 tab PO Q8H PRN #4 tab 11/16/23 06/18/24 Rx 5-325] Dapagliflozin Propanediol [Farxiga] 5 mg PO DAILY@0600 05/31/24 06/18/24 History Linaclotide [Linzess] 145 mcg PO DAILY@0600 05/31/24 06/18/24 History Mv-Min/FA/Vit K/Lutein/Zeaxant 1 cap PO DAILY@0700,1600 05/31/24 06/18/24 History [Preservision Areds 2 Plus Mv] Omeprazole 20 mg PO DAILY@0600 05/31/24 06/18/24 History Fluoride (Sodium) [Sodium Fluoride 1 applic DENTAL HS 06/18/24 06/18/24 History 5000 Plus] Gabapentin [Neurontin] 400 mg PO TID@0700,1300,1900 06/18/24 06/18/24 History Isosorbide Mononitrate ER [Imdur] 30 mg PO DAILY@0600 06/18/24 06/18/24 History Lactulose [Cephulac] 30 gm PO DAILY@0700 06/18/24 06/18/24 History Allergies Allergy/AdvReac Type Severity Reaction Status Date / Time No Known Allergies Allergy Verified 06/18/24 09:17 Physical Exam Vitals: Vital Signs Temp Pulse Resp BP Pulse Ox 06/18/24 08:35 97.5 F L 62 18 132/80 98 06/18/24 08:18 96 06/18/24 06:07 60 18 142/58 99 06/18/24 03:07 65 18 143/66 99 06/18/24 02:37 64 18 159/74 99 06/18/24 02:07 64 18 118/72 99 06/18/24 01:37 64 18 135/83 99 06/18/24 01:07 66 18 144/72 99 06/18/24 00:37 60 18 133/74 99 06/18/24 00:07 70 18 115/80 99 06/17/24 23:37 64 18 133/77 99 06/17/24 22:52 62 18 143/71 99 06/17/24 22:22 59 L 18 138/85 99 06/17/24 21:52 63 18 129/79 98 06/17/24 21:37 60 18 130/77 98 06/17/24 21:21 97.0 F L 69 18 132/75 99 Intake and Output 06/17/24 06/18/24 06/18/24 22:59 06:59 14:59 Output Total 1700 Balance -1700 Output: Urine 1700 Other: Weight 132.177 kg Results CBC & Chem 7: 06/17/24 21:27 06/17/24 21:27 Labs: Abnormal Lab Results - Last 24 Hours (Table) 06/17/24 06/17/24 06/17/24 Range/Units 21:24 21:27 21:27 RBC 4.24 L (4.30-5.90) m/uL RDW 15.6 H (11.5-15.5) % BUN 28 H (9-20) mg/dL Creatinine 1.67 H (0.66-1.25) mg/dL Glucose 164 H (74-99) mg/dL POC Glucose (mg/dL) 168 H (70-110) mg/dL Creatine Kinase 51 L (55-170) U/L Urine Glucose (UA) (Negative) Urine Blood (Negative) Ur Leukocyte Esterase (Negative) Urine WBC (0-5) /hpf Urine WBC Clumps (None) /hpf Urine Bacteria (None) /hpf Urine Mucus (None) /hpf Urine Yeast (Budding) (None) /hpf 06/17/24 Range/Units 22:24 RBC (4.30-5.90) m/uL RDW (11.5-15.5) % BUN (9-20) mg/dL Creatinine (0.66-1.25) mg/dL Glucose (74-99) mg/dL POC Glucose (mg/dL) (70-110) mg/dL Creatine Kinase (55-170) U/L Urine Glucose (UA) 3+ H (Negative) Urine Blood Trace H (Negative) Ur Leukocyte Esterase Large H (Negative) Urine WBC >182 H (0-5) /hpf Urine WBC Clumps Occasional H (None) /hpf Urine Bacteria Many H (None) /hpf Urine Mucus Rare H (None) /hpf Urine Yeast (Budding) Few H (None) /hpf
[2024-06-18] MEDS: INSULIN ASPART (NovoLOG) 100 UNIT/ML VIAL SQ SCH (16:58)
[2024-06-18] MEDS: BUMETANIDE 1 MG TAB PO SCH (17:02)
--- NOTE | 2024-06-18 17:35 | P.CNNES ---
History of Present Illness Consult date: 06/18/24 Requesting physician: Tarun Ely Reason for Consult: tia History of Present Illness: This is an 78-year-old gentleman who presented emergency department because of increased weakness over the right arm per the ED physician. Patient states that he resides and [facility]. At his nursing facility, patient stated that he had uncontrollable shaking over the left side yesterday around 6 PM and could not stop it and lasted for prolonged period of time does not recall how long but he felt was long but he did not lose any consciousness, denies any urinary or bowel incontinence or tongue bite. Patient was aware of what transpired. Denies any chest pain or any aura prior to the episode. He denies any history of seizure. He states that he had multiple strokes with multiple TIAs in the past and he has residual right facial weakness right sided weakness is significant mostly in the right leg more than the arm. He denies any weakness to me on the left side that is new. Some of the workup during this hospital visit consisted of: Creatinine is 1.67, BUN is 28, initial serum glucose is 164, CK level is 51 Lipid Panel: Triglyceride 65, cholesterol is 139, LDL 70 and HDL 35 Urinalysis is positive for leukocyte esterase is large, urine white blood cells more than [address] of the head is reported as no acute intracranial process. Chronic appearing periventricular white matter ischemic type changes with atrophy. Some stable focal white matter hypodensity in the posterior inferior left occipital lobe present previously may be prior ischemic changes. Personally reviewed the CT and agree there is no acute or subacute stroke CT angiography of the head and neck is reported as no flow-limiting stenosis bilateral carotid bifurcation. Normal [place] [facility] [place]. Review of Systems As per HPI. 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 in summer for possible ileus, no current wounds or skin breakdown per nurse from [facility] History of Any Multi-Drug Resistant Organisms: None Reported Past Surgical History: Appendectomy, Orthopedic Surgery Past Anesthesia/Blood Transfusion Reactions: No Reported Reaction Past Psychological History: No Psychological Hx Reported, Depression Smoking Status: Never smoker Medications and Allergies Home Medications Medication Instructions Recorded Confirmed Type Cholecalciferol [Vitamin D3 (25 25 mcg PO DAILY@0600 01/17/22 06/18/24 History Mcg = 1000 Iu)] PARoxetine [Paxil] 10 mg PO HS 01/17/22 06/18/24 History Primidone [Mysoline] 50 mg PO HS 01/17/22 06/18/24 History Tamsulosin [Flomax] 0.4 mg PO HS@199901/17/22 06/18/24 History polyethylene glycoL 3350 [Miralax] 17 gm PO BID 01/17/22 06/18/24 History Atorvastatin [Lipitor] 40 mg PO HS@199903/01/22 06/18/24 History Apixaban [Eliquis] 5 mg PO BID 08/04/22 06/18/24 History Docusate [Colace] 100 mg PO BID 09/07/22 06/18/24 History Ranolazine [Ranexa] 500 mg PO BID 09/07/22 06/18/24 History Bumetanide [BUMEX] 2 mg PO BID 01/06/23 06/18/24 History Menthol [Biofreeze] 1 applic TOPICAL Q8H PRN 01/06/23 06/18/24 History Metoprolol Tartrate [Lopressor] 25 mg PO BID 01/06/23 06/18/24 History glipiZIDE [Glucotrol] 5 mg PO DAILY@1400 01/21/23 06/18/24 History glipiZIDE [Glucotrol] 10 mg PO DAILY@0600 01/21/23 06/18/24 History Baclofen 10 mg PO TID@0700,1300,1900 3 Days 01/25/23 06/18/24 Rx #9 tab Latanoprost [Latanoprost 0.005%] 1 drop LEFT EYE HS@199906/06/23 06/18/24 History Potassium Chloride ER [K-Dur 10] 10 meq PO BID 06/06/23 06/18/24 History Naloxone HCl 0.4 mg SQ ONCE PRN 08/18/23 06/18/24 History Naloxone HCl [Narcan] 4 mg NASAL DIRECTED PRN 08/18/23 06/18/24 History Acetaminophen Tab [Tylenol] 1,000 mg PO TID@0700,1300,1900 11/13/23 06/18/24 History Sennosides [Senokot] 17.2 mg PO BID 11/13/23 06/18/24 History HYDROcodone/APAP 5-325MG [[place] 1 tab PO Q8H PRN #4 tab 11/16/23 06/18/24 Rx 5-325] Dapagliflozin Propanediol [Farxiga] 5 mg PO DAILY@0600 05/31/24 06/18/24 History Linaclotide [Linzess] 145 mcg PO DAILY@0600 05/31/24 06/18/24 History Mv-Min/FA/Vit K/Lutein/Zeaxant 1 cap PO DAILY@0700,1600 05/31/24 06/18/24 History [Preservision Areds 2 Plus Mv] Omeprazole 20 mg PO DAILY@0600 05/31/24 06/18/24 History Fluoride (Sodium) [Sodium Fluoride 1 applic DENTAL HS 06/18/24 06/18/24 History 5000 Plus] Gabapentin [Neurontin] 400 mg PO TID@0700,1300,1900 06/18/24 06/18/24 History Isosorbide Mononitrate ER [Imdur] 30 mg PO DAILY@0600 06/18/24 06/18/24 History Lactulose [Cephulac] 30 gm PO DAILY@0700 06/18/24 06/18/24 History Allergies Allergy/AdvReac Type Severity Reaction Status Date / Time No Known Allergies Allergy Verified 06/18/24 09:17 Physical Examination - Vital Signs Vital Signs: Vital Signs Temp Pulse Pulse Resp BP BP Pulse Ox 06/18/24 16:00 97.7 F 65 18 144/74 100 06/18/24 15:45 97.7 F 06/18/24 15:20 61 18 160/79 97 06/18/24 14:00 67 18 142/81 97 06/18/24 13:11 97.8 F 69 18 138/83 98 06/18/24 13:06 97.8 F 69 18 138/83 98 06/18/24 13:00 97.8 F 69 18 138/83 98 01/13/25 11:00 74 18 133/94 98 06/18/24 10:00 64 18 155/78 98 06/18/24 09:00 60 18 147/84 98 06/18/24 08:35 97.5 F L 62 18 132/80 98 06/18/24 08:18 97.7 F 96 06/18/24 08:00 97.8 F 62 20 130/58 98 06/18/24 06:07 60 18 142/58 99 06/18/24 03:07 65 18 143/66 99 06/18/24 02:37 64 18 159/74 99 06/18/24 02:07 64 18 118/72 99 06/18/24 01:37 64 18 135/83 99 06/18/24 01:07 66 18 144/72 99 06/18/24 00:37 60 18 133/74 99 06/18/24 00:07 70 18 115/80 99 06/17/24 23:37 64 18 133/77 99 06/17/24 22:52 62 18 143/71 99 06/17/24 22:22 59 L 18 138/85 99 06/17/24 21:52 63 18 129/79 98 06/17/24 21:37 60 18 130/77 98 06/17/24 21:21 97.0 F L 69 18 132/75 99 Intake and Output 06/18/24 06/18/24 06/18/24 06:59 14:59 22:59 Output Total 1700 Balance -1700 Output: Urine 1700 Other: Voiding Method External Catheter Weight 131.2 kg GENERAL: The patient is lying in bed and is not in acute distress. NEUROLOGICAL: Higher mental function: The patient is awake, alert, oriented to self, place and time. Patient is following commands. No aphasia and no neglect. Cranial nerves: The pupils are round, equal and reactive to light and accommodation. Visual schmidt: Somewhat hard to assess because of his cooperation but I felt was the left upper quadrant anopsia. Extraocular movement is intact no nystagmus is noted. Facial sensation is normal to touch throughout. The facial strength is at least moderate right lower facial droop. Mild to moderate dysarthria. Motor: The strength is right upper extremity is about a 3. Right lower extremity proximal is a 1/5, the knees is 1-2 and at the ankles is about 2-3. Side is 5 out of 5. Cerebellum: Normal finger to nose heel on the left did not assess the right. . Sensation: Sensation is normal to touch throughout. Plantars are mute bilaterally. Results - Laboratory Findings CBC and BMP: 06/17/24 21:27 06/17/24 21:27 Abnormal Lab Findings: Abnormal Labs 06/17/24 06/17/24 06/17/24 21:24 21: 21:27 RBC 4.24 L RDW 15.6 H BUN 28 H Creatinine 1.67 H Glucose 164 H POC Glucose (mg/dL) 168 H Creatine Kinase 51 L Triglycerides HDL Cholesterol Urine Glucose (UA) Urine Blood Ur Leukocyte Esterase Urine WBC Urine WBC Clumps Urine Bacteria Urine Mucus Urine Yeast (Budding) 06/17/24 06/17/24 06/18/24: 22:24 15:42 RBC RDW BUN Creatinine Glucose POC Glucose (mg/dL) 180 H Creatine Kinase Triglycerides 165.00 H HDL Cholesterol 35.30 L Urine Glucose (UA) 3+ H Urine Blood Trace H Ur Leukocyte Esterase Large H Urine WBC >182 H Urine WBC Clumps Occasional H Urine Bacteria Many H Urine Mucus Rare H Urine Yeast (Budding) Few H Assessment and Plan Assessment: This is an 78-year-old gentleman with history of multiple strokes, TIAs who presented emergency department from his nursing facility and stated he had uncontrollable shaking of the left upper extremity without any loss of consciousness. Per the ED team they reported the patient presents because of worsening weakness of the arm and the patient denies any worsening weakness. Uncontrollable transient shaking of the left side likely focal motor seizure without loss of consciousness, this could be provoked because of suspected acute urinary tract infection. The patient is back at baseline. Probable acute urinary tract infection History of multiple strokes with residual right hemiparesis over the right upper and lower extremity but more significant in the right lower than the upper as well as facial droop, dysarthria. Seems the patient had old stroke over the left occipital and basal ganglia History of atrial fibrillation the patient is on Eliquis. Diabetes mellitus Hyperlipidemia History of sleep apnea History of chronic kidney insufficiency History of diabetes neuropathy Plan: Ordered MRI of the brain I ordered routine EEG If patient has any further body jerks or has any further seizure-like activities then recommend the patient to be started on Keppra 500 mg twice daily. Patient is on Eliquis 2.5 mg twice daily. She was given aspirin 325 once in the ED as well as was started on aspirin 81 mg once daily by the primary team. If the MRI of the brain is negative for any acute or subacute stroke discontinue it from a neurology perspective. He is on Lipitor 80 mg nightly Continue neurochecks Cardiac monitoring PT OT and MATERIALS DEVELOPMENT ENGINEER are consulted Recommend urine culture Will defer the rest of the medical management to primary and other specialist. DVT prophylaxis the patient is on Eliquis Thank you for the consultation Time with Patient: Greater than 30
--- NOTE | 2024-06-18 18:21 | XR ---
EXAMINATION TYPE: XR chest 1V portable DATE OF EXAM: 06/18/2024 6:10 PM COMPARISON: Chest radiographs from 08/18/2023. CLINICAL INDICATION: Male, 78 years old with history of history of CHF; TECHNIQUE: XR chest 1V portable Frontal view of the chest. FINDINGS: Lungs/Pleura: There is no evidence of pleural effusion, focal consolidation, or pneumothorax. Pulmonary vascularity: Unremarkable. Heart/mediastinum: Cardiomediastinal silhouette is unremarkable. Musculoskeletal: No acute osseous pathology. IMPRESSION: Interstitial lung disease changes without acute pulmonary process. [facility], , 06/18/2024 6:19 PM
[2024-06-18 19:53] LABS: Glucose,Whole Blood 166 mg/dL (70-110)
[2024-06-18] MEDS: ATORVASTATIN 80 MG TAB PO SCH (20:31)
[2024-06-18] MEDS: APIXABAN 2.5 MG TABLET PO SCH (20:31)
[2024-06-18] MEDS: ACETAMINOPHEN TAB 325 MG TAB PO PRN (20:50)
[2024-06-19] MEDS: PANTOPRAZOLE 40 MG TABLET PO SCH (06:14)
[2024-06-19 06:17] LABS: Glucose,Whole Blood 132 mg/dL (70-110)
[2024-06-19 06:59] LABS: Basophils % (A) 1 %; Eosinophils # (A) 0.4 k/uL (0-0.7); Eosinophils % (A) 6 %; HCT 39.8 % (39.0-53.0); HGB 12.6 gm/dL (13.0-17.5); Hypochromasia Moderate; Lymphocytes # (A) 1.5 k/uL (1.0-4.8); Lymphocytes % (A) 20 %; MCH 30.5 pg (25.0-35.0); MCHC 31.7 g/dL (31.0-37.0); MCV 96.3 fL (80.0-100.0); Mean Platelet Volume 8.5; Monocytes # (A) 0.6 k/uL (0-1.0); Monocytes % (A) 8 %; Neutrophils # (A) 4.7 k/uL (1.3-7.7); Neutrophils % (A) 63 %; Platelet Count 232 k/uL (150-450); RBC 4.13 m/uL (4.30-5.90); RDW 15.3 % (11.5-15.5); WBC 7.5 k/uL (3.8-10.6)
[2024-06-19 07:13] LABS: African American GFR (CKD) 56 (>60 ml/min/1.73 sqM); Anion Gap 9 mmol/L; Blood Urea Nitrogen 24 mg/dL (9-20); Calcium 8.9 mg/dL (8.4-10.2); Carbon Dioxide 27 mmol/L (22-30); Chloride 103 mmol/L (98-107); Glucose 123 mg/dL (74-99); Non-African American GFR(CKD) 48 (>60 ml/min/1.73 sqM); Potassium 4.4 mmol/L (3.5-5.1); Sodium 139 mmol/L (137-145)
[2024-06-19] MEDS: APIXABAN 5 MG TAB PO SCH (08:56)
[2024-06-19] MEDS: ASPIRIN 81 MG PO SCH (08:56)
[2024-06-19] MEDS: LORATADINE 10 MG TAB PO STA (09:48)
--- NOTE | 2024-06-19 13:26 | MR ---
EXAMINATION TYPE: MR brain wo con DATE OF EXAM: 06/19/2024 12:45 PM COMPARISON: 01/08/2023. CLINICAL INDICATION: Male, 78 years old with history of arm weakness; PHH, Extremity weakness TECHNIQUE: Multi planar, multi sequence imaging was performed through the brain including: T1, T2, In version recovery, Diffusion weighted imaging, and gradient echo imaging. No gadolinium was given. FINDINGS: Remote left inferior occipital/parietal injury. Limited exam due to lack of coiled/body hab itus. Mild cerebral atrophy with proportional dilation of ventricular system. Scattered foci of high T2 s ignal intensity are seen within the periventricular white matter. Midline structures show no abnormal ity. Diffusion-weighted imaging shows no evidence of restricted diffusion. The susceptibility weighte d images do not reveal any evidence for micro-hemorrhage. The bone marrow signal is within normal limits. Paranasal sinuses and mastoid air cells: No significant paranasal sinus disease. Visualized orbits: Bilateral aphakia IMPRESSION: Limited exam due to lack of coiled/body habitus. 1. No evidence of intracranial mass or acute/subacute infarct. 2. Nonspecific white matter changes, likely secondary to small vessel ischemic disease. 3. Remote left occipital/parietal injury. [facility], , 06/19/2024 1:23 PM
--- NOTE | 2024-06-19 15:21 | P.PN ---
Subjective Progress Note Date: 06/19/24 I am following up with the patient and he stated that he does not have any further jerks or seizure-like activity. He feels he is doing well. No new neurological issues Objective - Vital Signs Vital signs: Vital Signs Temp 97.7 F 06/19/24 08:00 Pulse 78 06/19/24 12:45 Resp 18 06/19/24 12:45 BP 145/91 06/19/24 12:45 Pulse Ox 97 06/19/24 12:45 FiO2 Intake & Output 06/18/24 06/19/24 06/19/24 18:59 06:59 18:59 Intake Total 450 Output Total 1900 Balance 450 -1900 Weight 131.2 kg 132.2 kg Intake: Oral 450 Output: Urine 1900 Other: Voiding Method External Catheter External Catheter External Catheter # Voids 1 - Exam GENERAL: The patient is lying in bed and is not in acute distress. NEUROLOGICAL: Higher mental function: The patient is awake, alert, oriented to self, place and time. Patient is following commands. No aphasia and no neglect. Cranial nerves: The pupils are round, equal and reactive to light and accommodation. Visual schmidt: Somewhat hard to assess because of his cooperation but I felt was the left upper quadrant anopsia. Extraocular movement is intact no nystagmus is noted. Facial sensation is normal to touch throughout. The facial strength is at least moderate right lower facial droop. Mild to moderate dysarthria. Motor: The strength is right upper extremity is about a 3. Right lower extremity proximal is a 1/5, the knees is 1-2 and at the ankles is about 2-3. Side is 5 out of 5. Cerebellum: Normal finger to nose heel on the left did not assess the right. . Sensation: Sensation is normal to touch throughout. Plantars are mute bilaterally. Some of the workup during this hospital visit consisted of: Creatinine is 1.67, BUN is 28, initial serum glucose is 164, CK level is 51 Lipid Panel: Triglyceride 65, cholesterol is 139, LDL 70 and HDL 35 Urinalysis is positive for leukocyte esterase is large, urine white blood cells more than 182 urine bacteria is many. CT of the head is reported as no acute intracranial process. Chronic appearing periventricular white matter ischemic type changes with atrophy. Some stable focal white matter hypodensity in the posterior inferior left occipital lobe present previously may be prior ischemic changes. Personally reviewed the CT and agree there is no acute or subacute stroke CT angiography of the head and neck is reported as no flow-limiting stenosis bilateral carotid bifurcation. Normal [place]. The brain is reported as no evidence of intracranial mass or acute/subacute infarct. Nonspecific white matter changes. - Labs CBC & Chem 7: 06/19/24 06:27 06/19/24 06:27 Labs: Abnormal Lab Results - Last 24 Hours (Table) 06/18/24 06/18/24 06/19/24 Range/Units 15:42 19:51 06:16 RBC (4.30-5.90) m/uL Hgb (13.0-17.5) gm/dL BUN (9-20) mg/dL Creatinine (0.66-1.25) mg/dL Glucose (74-99) mg/dL POC Glucose (mg/dL) 180 H 166 H 132 H (70-110) mg/dL Hemoglobin A1c (<=6.0) % 06/19/24 06/19/24 06/19/24 Range/Units 06:27 06:27 06:27 RBC 4.13 L (4.30-5.90) m/uL Hgb 12.6 L (13.0-17.5) gm/dL BUN 24 H (9-20) mg/dL Creatinine 1.37 H (0.66-1.25) mg/dL Glucose 123 H (74-99) mg/dL POC Glucose (mg/dL) (70-110) mg/dL Hemoglobin A1c 7.7 H (<=6.0) % Assessment and Plan Assessment: This is an 78-year-old gentleman with history of multiple strokes, TIAs who presented emergency department from his nursing facility and stated he had uncontrollable shaking of the left upper extremity without any loss of consciousness. Per the ED team they reported the patient presents because of worsening weakness of the arm and the patient denies any worsening weakness. Uncontrollable transient shaking of the left side likely focal motor seizure without loss of consciousness, this could be provoked because of suspected acute urinary tract infection. The patient is back at baseline. MRI of the brain is unremarkable for any acute process. Probable acute urinary tract infection History of multiple strokes with residual right hemiparesis over the right upper and lower extremity but more significant in the right lower than the upper as well as facial droop, dysarthria. Seems the patient had old stroke over the left occipital and basal ganglia History of atrial fibrillation the patient is on Eliquis. Diabetes mellitus Hyperlipidemia History of sleep apnea History of chronic kidney insufficiency History of diabetes neuropathy Plan: Peding routine EEG If patient has any further body jerks or has any further seizure-like activities then recommend the patient to be started on Keppra 500 mg twice daily. Patient is on Eliquis 2.5 mg twice daily. She was given aspirin 325 once in the ED as well as was started on aspirin 81 mg once daily by the primary team. If the MRI of the brain is negative for any acute or subacute stroke discontinue it from a neurology perspective. He is on Lipitor 80 mg nightly Continue neurochecks Cardiac monitoring PT OT and TOURIST GUIDE are consulted Recommend urine culture Will defer the rest of the medical management to primary and other specialist. DVT prophylaxis the patient is on Eliquis Upon discharge recommend the patient to follow-up with a neurologist as an outpatient within 3 weeks. If EEG is negative for any seizure discharges then the patient is cleared from a neurologic perspective. Time with Patient: Less than 30
[2024-06-19 16:57] LABS: Glucose,Whole Blood 137 mg/dL (70-110)
[2024-06-19 20:45] LABS: Glucose,Whole Blood 157 mg/dL (70-110)
[2024-06-19 21:43] LABS: Glucose,Whole Blood 162 mg/dL (70-110)
--- NOTE | 2024-06-19 22:22 | EEG ---
ELECTROENCEPHALOGRAM REPORT CLINICAL HISTORY: This is an 78-year-old gentleman with episode of left upper extremity jerking. The video EEG is obtained to evaluate for seizure epileptiform activity. RELEVANT MEDICATION: The patient is not on any antiseizure medication. EEG TYPE: This is a routine 21-channel EEG with video using the 10/20 electrode placement system. DESCRIPTION: Wakefulness is only obtained. The background was obscured because of the severe diffuse myogenic artifact, but the background appears 8 hertz activity. There is no physiological stage 2 sleep architecture noted. There is no focal slowing. As stated earlier, there is diffuse severe myogenic artifact. Interictal and ictal is none. ACTIVATION PROCEDURE: Photic stimulation was performed, but was limited because of myogenic artifact, but no abnormality for limitation is noted. Hyperventilation is not performed. CLINICAL INTERPRETATION: This is a very limited study because of severe diffuse myogenic artifact, but with limitation. The background is normal and there is no epileptiform discharge, or seizure on the EEG. Clinical correlation is recommended. MMODL / IJN: [id number] /
--- NOTE | 2024-06-20 05:20 | P.PN ---
Subjective Progress Note Date: 06/19/24 Patient is a 78-year-old male with paroxysmal atrial fibrillation, history of chest pain/angina, heart failure with most recent LVEF estimated at 55 to 60% (Per echocardiogram done in 2022), history of CVA/TIA, diabetes mellitus, GERD, hyperlipidemia, chronic kidney disease stage III, and obstructive sleep apnea presented to the emergency department via EMS with increasing weakness in the right arm and slurred speech that started last night. 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 Right-sided facial droop is old to this patient. Patient reported that last night he began to notice new onset slurred speech that lasted for 2 hours and then it went away afterwards. He also repo rted some perioral numbness around the same time. Patient reported that slurring of speech is something he has never experienced before. He does report a chronic right-sided weakness along with right-sided facial droop and slightly decreased sensation on the right side. He was seen at bedside in the ED. He still reports some right-sided weakness but is slurring of speech has improved. He denies other complaints at this time. Denies fever, chills, chest pain, shortness of breath, belly pain, dysuria, upper or lower extremity tingling or numbness. ED documentation reviewed. In the ED patient was treated with a bolus of normal saline and aspirin 325 mg Vitals on admission temperature 97.5, pulse rate 62, respiratory rate 18, blood pressure 132/80, O2 sat 98% on room air EKG independently interpreted as atrial fibrillation with a ventricular rate of 65 bpm, QTc interval of [address] of brain shows no acute intracranial process. Follow-up MRI can be performed as clinically indicated. Chronic appearing periventricular white matter ischemictype changes with atrophy. Some stable focal white matter hypointensities in the posterior inferior left occipital lobe, present previously may be prior ischemic changes CT angio of head and neck showed no flow-limiting stenosis bilateral carotid bifurcations. Normal [place]. Labs on admission show WBC 7.2, hemoglobin 13.1, hematocrit 39.9, platelet 230, sodium 138, potassium 4.9, chloride 100, carbon dioxide 26, BUN 28, creatinine 1.67, glucose 168, creatinine kinase 51, troponin less than 0.012 UA shows large leukocyte esterase, greater than 182 WBC, negative nitrate 06/19/2024 Patient is seen in follow-up continues to be in the ICU although is a downgrade to 3 S. once a bed becomes available. According to nursing staff MRI is scheduled for sometime after 1215 today. Neurology following and is also scheduled for EEG. Patient did have positive leukocyte esterase noted in the urine and will submit for urine culture. Patient has not with indwelling Aguero catheter has an external device and will add Rocephin 1 g. Follow-up on repeat labs in AM. Awaiting PT/OT therapy as well. Review of systems: Constitutional: No reports of fatigue, fever, or chills Cardiovascular: No reports of chest pain or palpitations Respiratory: No reports of shortness of breath or cough GI: No reports of nausea, vomiting, or diarrhea : No reports of dysuria or retention Neurovascular: reports of generalized weakness All medications have been reviewed PMH: paroxysmal atrial fibrillation, history of chest pain/angina, heart failure with most recent LVEF estimated at 55 to 60% (Per echocardiogram done in 2022), history of CVA/TIA, diabetes mellitus, GERD, hyperlipidemia, chronic kidney disease stage III, and obstructive sleep apnea PSH: Appendectomy and orthopedic surgery FMH: No pertinent family history Allergies: No known drug allergies Physical exam: Gen: This is a 78-year-old male who is awake, alert and oriented x 2-3, well-developed, elderly appearing, morbidly obese HEENT: Head is atraumatic, normocephalic. Pupils equal, round. Sclerae is anicteric. NECK: Supple. No JVD. No lymphadenopathy. No thyromegaly. LUNGS: Diminished breath sounds bilaterally otherwise clear to auscultation. No wheezes or rhonchi. No intercostal retractions. HEART: S1, S2 are muffled ABDOMEN: Soft. Obese. Bowel sounds are present. No masses. No tenderness. EXTREMITIES: No pedal edema. No calf tenderness. NEUROLOGICAL: Patient is awake, alert and oriented x3. Cranial nerves 2 through 12 are grossly intact. Reduced muscle strength on the right upper and lower extremity and slightly reduced sensation on the right side Assessment/Plan: Patient is a 78-year-old male with paroxysmal atrial fibrillation, history of chest pain/angina, heart failure with most recent LVEF estimated at 55 to 60% (Per echocardiogram done in 2022), history of CVA/TIA, diabetes mellitus, GERD, hyperlipidemia, chronic kidney disease stage III, and obstructive sleep apnea presented to the emergency department via EMS with increasing weakness in the right arm. Patient was admitted to internal medicine service with neurology on consult.. Active: #. Acute ischemic stroke/TIA, scheduled to undergo MRI of the brain today 06/20/2024 #. History of congestive heart failure, not in exacerbation CT of brain shows no acute intracranial process. Follow-up MRI is scheduled for today after 1214 along with an EEG CT angio of the head and neck showed no flow limiting stenosis bilateral carotid bifurcation. Normal [place]. Neurology is following Continue with fall precautions Continue cardiac monitoring Consult PT/OT Continue Lipitor 80 mg at bedtime Continue aspirin 81 mg daily, if MRI is negative consider discontinuing as patient is on Eliquis #. Acute urinary tract infection, present on admission Greater than 182 WBC, negative for nitrite, large amount of leukocyte esterase Patient denies urinary symptoms at this time. Will add 1 g of Rocephin daily and also request repeat urinalysis with culture #. Elevated creatinine likely due to chronic kidney disease stage III Creatinine 1.67 Continue normal saline at 100 cc an hour Monitor morning BMP Continue Bumex 2 mg twice daily #. Diabetes mellitus, type II, uncontrolled with hyperglycemia Glucose 164 Hold oral diabetic medications at this time and will continue with sliding scale and recommend Accu-Cheks before meals and at bedtime. Adjust insulins ac cordingly # Morbid obesity with a BMI of 41.8 Chronic: #. History of atrial fibrillation Continued on apixaban 5 mg twice daily #. Hyperlipidemia Continue atorvastatin 80 mg at bedtime #. GERD Restart omeprazole 20 mg daily F: No restrictions, heart failure history E: Replete as needed N: Consistent carb diet A: EMS DVT prophylaxis: Apixaban 5 mg twice daily GI prophylaxis No code Plan: Patient did undergo MRI of the brain showing no acute process and also scheduled to undergo EEG with neurology following. Patient is continued on Eliquis along with statin therapy and will continue. Consider discontinuing aspirin Patient did have abnormal urine we will repeat urinalysis and also give a gram of Rocephin and request urine culture Await PT/OT therapy evaluation and discussed with case management/social work regarding discharge planning as patient will be returning to [facility] Will discuss with neurology regarding possible discharge planning Possible discharge in the next 24 to 48 hours The impression and plan of care has been dictated by Yaritza Roberto, Nurse Practitioner as directed. Dr. Sharonda MD I have performed a history and examination and MDM of this patient, discussed the same with the dictator, and agree with the dictator's assessment and plan as written ,documented as a scribe. Based on total visit time, I have performed more than 50% of the visit. Objective - Vital Signs Vital signs: Vital Signs Temp 97.7 F 06/19/24 08:00 Pulse 69 06/19/24 08:00 Resp 16 06/19/24 08:00 BP 150/86 06/19/24 08:00 Pulse Ox 99 06/19/24 08:00 FiO2 Intake & Output 06/18/24 06/19/24 06/19/24 18:59 06:59 18:59 Intake Total 450 Output Total 1900 Balance 450 -1900 Weight 131.2 kg 132.2 kg Intake: Oral 450 Output: Urine 1900 Other: Voiding Method External Catheter External Catheter # Voids 1 - Labs CBC & Chem 7: 06/19/24 06:27 06/19/24 06:27 Labs: Abnormal Lab Results - Last 24 Hours (Table) 06/17/24 06/18/24 06/18/24 Range/Units 21:27 15:42 19:51 RBC (4.30-5.90) m/uL Hgb (13.0-17.5) gm/dL BUN (9-20) mg/dL Creatinine (0.66-1.25) mg/dL Glucose (74-99) mg/dL POC Glucose (mg/dL) 180 H 166 H (70-110) mg/dL Triglycerides 165.00 H (0.00-149.00) mg/dL HDL Cholesterol 35.30 L (40.00-60.00) mg/dL 06/19/24 06/19/24 06/19/24 Range/Units 06:16 06:27 06:27 RBC 4.13 L (4.30-5.90) m/uL Hgb 12.6 L (13.0-17.5) gm/dL BUN 24 H (9-20) mg/dL Creatinine 1.37 H (0.66-1.25) mg/dL Glucose 123 H (74-99) mg/dL POC Glucose (mg/dL) 132 H (70-110) mg/dL Triglycerides (0.00-149.00) mg/dL HDL Cholesterol (40.00-60.00) mg/dL
[2024-06-20 06:02] LABS: Glucose,Whole Blood 120 mg/dL (70-110)
[2024-06-20 07:33] LABS: African American GFR (CKD) 56 (>60 ml/min/1.73 sqM); Anion Gap 8 mmol/L; Blood Urea Nitrogen 21 mg/dL (9-20); Calcium 9.4 mg/dL (8.4-10.2); Carbon Dioxide 29 mmol/L (22-30); Chloride 100 mmol/L (98-107); Glucose 127 mg/dL (74-99); Non-African American GFR(CKD) 48 (>60 ml/min/1.73 sqM); Potassium 4.3 mmol/L (3.5-5.1); Sodium 137 mmol/L (137-145)
[2024-06-20 11:50] LABS: Glucose,Whole Blood 194 mg/dL (70-110)
--- NOTE | 2024-06-20 14:22 | P.PN ---
Subjective Progress Note Date: 06/20/24 I am following up with the patient and he denies any further motor jerks or any new neurological issues. Objective - Vital Signs Vital signs: Vital Signs Temp 97.7 F 06/20/24 08:00 Pulse 90 06/20/24 12:00 Resp 18 06/20/24 12:00 BP 150/89 06/20/24 12:00 Pulse Ox 100 06/20/24 12:00 FiO2 Intake & Output 06/19/24 06/20/24 06/20/24 18:59 06:59 18:59 Intake Total 800 50 480 Output Total 1200 950 Balance -400 -900 480 Weight 132 kg Intake: Oral 800 50 480 Output: Urine 1200 950 Other: Voiding Method External Catheter External Catheter External Catheter - Exam GENERAL: The patient is lying in bed and is not in acute distress. NEUROLOGICAL: Higher mental function: The patient is awake, alert, oriented to self, place and time. Patient is following commands. No aphasia and no neglect. Cranial nerves: The pupils are round, equal and reactive to light and accommodation. Visual schmidt: Somewhat hard to assess because of his cooperation but I felt was the left upper quadrant anopsia. Extraocular movement is intact no nystagmus is noted. Facial sensation is normal to touch throughout. The facial strength is at least moderate right lower facial droop. Mild to moderate dysarthria. Motor: The strength is right upper extremity is about a 3. Right lower extremity proximal is a 1/5, the knees is 1-2 and at the ankles is about 2-3. Side is 5 out of 5. Cerebellum: Normal finger to nose heel on the left did not assess the right. . Sensation: Sensation is normal to touch throughout. Plantars are mute bilaterally. Some of the workup during this hospital visit consisted of: Creatinine is 1.67, BUN is 28, initial serum glucose is 164, CK level is 51 Lipid Panel: Triglyceride 65, cholesterol is 139, LDL 70 and HDL 35 Urinalysis is positive for leukocyte esterase is large, urine white blood cells more than [address] urine bacteria is [address] of the head is reported as no acute intracranial process. Chronic appearing periventricular white matter ischemic type changes with atrophy. Some stable focal white matter hypodensity in the posterior inferior left occipital lobe present previously may be prior ischemic changes. Personally reviewed the CT and agree there is no acute or subacute stroke CT angiography of the head and neck is reported as no flow-limiting stenosis bilateral carotid bifurcation. Normal [place]. MRI brain is reported as no evidence of intracranial mass or acute/subacute infa rct. Nonspecific white matter changes. Routine EEG is very limited study because of the severe diffuse myogenic artifact but with the limitation the background is normal and there is no epileptiform discharges or seizure on the EEG. - Labs CBC & Chem 7: 06/19/24 06:27 06/20/24 06:16 Labs: Abnormal Lab Results - Last 24 Hours (Table) 06/19/24 06/19/24 06/19/24 Range/Units 16:56 20:44 21:42 BUN (9-20) mg/dL Creatinine (0.66-1.25) mg/dL Glucose (74-99) mg/dL POC Glucose (mg/dL) 137 H 157 H 162 H (70-110) mg/dL 06/20/24 06/20/24 06/20/24 Range/Units 06:01 06:16 11:49 BUN 21 H (9-20) mg/dL Creatinine 1.37 H (0.66-1.25) mg/dL Glucose 127 H (74-99) mg/dL POC Glucose (mg/dL) 120 H 194 H (70-110) mg/dL Assessment and Plan Assessment: This is an 78-year-old gentleman with history of multiple strokes, TIAs who presented emergency department from his nursing facility and stated he had uncontrollable shaking of the left upper extremity without any loss of consciousness. Per the ED team they reported the patient presents because of worsening weakness of the arm and the patient denies any worsening weakness. Uncontrollable transient shaking of the left side likely focal motor seizure without loss of consciousness, this could be provoked because of suspected acute urinary tract infection. The patient is back at baseline. MRI of the brain is unremarkable for any acute process. Possibly his jerking episode was possibly provoked due to his acute renal tract infection Probable acute urinary tract infection History of multiple strokes with residual right hemiparesis over the right upper and lower extremity but more significant in the right lower than the upper as well as facial droop, dysarthria. Seems the patient had old stroke over the left occipital and basal ganglia History of atrial fibrillation the patient is on Eliquis. Diabetes mellitus Hyperlipidemia History of sleep apnea History of chronic kidney insufficiency History of diabetes neuropathy Plan: If patient has any further body jerks or has any further seizure-like activities then recommend the patient to be started on Keppra 500 mg twice daily. This time I will not start the patient on any antiseizure medication since I feel likely it is provoked from the acute urinary tract infection. Patient is on Eliquis 2.5 mg twice daily. She was given aspirin 325 once in the ED as well as was started on aspirin 81 mg once daily by the primary team. If the MRI of the brain is negative for any acute or subacute stroke discontinue it from a neurology perspective. He is on Lipitor 80 mg nightly Continue neurochecks Cardiac monitoring PT OT and SLICING MACHINE FEEDER are consulted Recommend urine culture Will defer the rest of the medical management to primary and other specialist. DVT prophylaxis the patient is on Eliquis Upon discharge recommend the patient to follow-up with a neurologist as an outpatient within 3 weeks. There is no further neurological workup. Will sign off. Please reconsult if needed. Time with Patient: Less than 30
--- NOTE | 2024-06-20 16:15 | P.PN ---
Subjective Progress Note Date: 06/20/24 Patient is a 78-year-old male with paroxysmal atrial fibrillation, history of chest pain/angina, heart failure with most recent LVEF estimated at 55 to 60% (Per echocardiogram done in 2022), history of CVA/TIA, diabetes mellitus, GERD, hyperlipidemia, chronic kidney disease stage III, and obstructive sleep apnea presented to the emergency department via EMS with increasing weakness in the right arm and slurred speech that started last night. 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 Right-sided facial droop is old to this patient. Patient reported that last night he began to notice new onset slurred speech that lasted for 2 hours and then it went away afterwards. He also reported some perioral numbness around the same time. Patient reported that slurring of speech is something he has never experienced before. He does report a chronic right-sided weakness along with right-sided facial droop and slightly decreased sensation on the right side. He was seen at bedside in the ED. He still reports some right-sided weakness but is slurring of speech has improved. He denies other complaints at this time. Denies fever, chills, chest pain, shortness of breath, belly pain, dysuria, upper or lower extremity tingling or numbness. ED documentation reviewed. In the ED patient was treated with a bolus of normal saline and aspirin 325 mg Vitals on admission temperature 97.5, pulse rate 62, respiratory rate 18, blood pressure 132/80, O2 sat 98% on room air EKG independently interpreted as atrial fibrillation with a ventricular rate of 65 bpm, QTc interval of [address] of brain shows no acute intracranial process. Follow-up MRI can be performed as clinically indicated. Chronic appearing periventricular white matter ischemictype changes with atrophy. Some stable focal white matter hypointensities in the posterior inferior left occipital lobe, present previously may be prior ischemic changes CT angio of head and neck showed no flow-limiting stenosis bilateral carotid bifurcations. Normal [place] of [place]. Labs on admission show WBC 7.2, hemoglobin 13.1, hematocrit 39.9, platelet 230, sodium 138, potassium 4.9, chloride 100, carbon dioxide 26, BUN 28, creatinine 1.67, glucose 168, creatinine kinase 51, troponin less than 0.012 UA shows large leukocyte esterase, greater than 182 WBC, negative nitrate 06/19/2024 Patient is seen in follow-up continues to be in the ICU although is a downgrade to 3 S. once a bed becomes available. According to nursing staff MRI is scheduled for sometime after 1215 today. Neurology following and is also scheduled for EEG. Patient did have positive leukocyte esterase noted in the urine and will submit for urine culture. Patient has not with indwelling Aguero catheter has an external device and will add Rocephin 1 g. Follow-up on repeat labs in AM. Awaiting PT/OT therapy as well. 06/20/2024 Patient was seen at bedside. Reports feeling better. Reports that his slurred speech has improved. MRI and EEG were ordered for the patient. MRI showed no evidence of intracranial mass or acute/subacute infarct. Nonspecific white matter changes, likely secondary to small vessel ischemic disease. Remote left occipital/parietal injury. EEG showed the background is normal and there is no epileptiform discharge or seizure on EEG. Patient is currently on IV Rocephin for urinary tract infection. Review of systems: Constitutional: No reports of fatigue, fever, or chills Cardiovascular: No reports of chest pain or palpitations Respiratory: No reports of shortness of breath or cough GI: No reports of nausea, vomiting, or diarrhea : No reports of dysuria or retention Neurovascular: reports of generalized weakness All medications have been reviewed PMH: paroxysmal atrial fibrillation, history of chest pain/angina, heart failure with most recent LVEF estimated at 55 to 60% (Per echocardiogram done in 2022), history of CVA/TIA, diabetes mellitus, GERD, hyperlipidemia, chronic kidney disease stage III, and obstructive sleep apnea PSH: Appendectomy and orthopedic surgery FMH: No pertinent family history Allergies: No known drug allergies Physical exam: Gen: This is a 78-year-old male who is awake, alert and oriented x 2-3, well- developed, elderly appearing, morbidly obese HEENT: Head is atraumatic, normocephalic. Pupils equal, round. Sclerae is anicteric. NECK: Supple. No JVD. No lymphadenopathy. No thyromegaly. LUNGS: Diminished breath sounds bilaterally otherwise clear to auscultation. No wheezes or rhonchi. No intercostal retractions. HEART: S1, S2 are muffled ABDOMEN: Soft. Obese. Bowel sounds are present. No masses. No tenderness. EXTREMITIES: No pedal edema. No calf tenderness. NEUROLOGICAL: Patient is awake, alert and oriented x3. Cranial nerves 2 through 12 are grossly intact. Reduced muscle strength on the right upper and lower extremity and slightly reduced sensation on the right side Assessment/Plan: Patient is a 78-year-old male with paroxysmal atrial fibrillation, history of chest pain/angina, heart failure with most recent LVEF estimated at 55 to 60% (Per echocardiogram done in 2022), history of CVA/TIA, diabetes mellitus, GERD, hyperlipidemia, chronic kidney disease stage III, and obstructive sleep apnea presented to the emergency department via EMS with increasing weakness in the right arm. Patient was admitted to internal medicine service with neurology on consult.. Active: #. Acute ischemic stroke/TIA, scheduled to undergo MRI of the brain today 06/20/2024 #. History of congestive heart failure, not in exacerbation RI showed no evidence of intracranial mass or acute/subacute infarct. Nonspecific white matter changes, likely secondary to small vessel ischemic disease. Remote left occipital/parietal injury. EEG showed the background is normal and there is no epileptiform discharge or seizure on EEG. CT of brain shows no acute intracranial process. CT angio of the head and neck showed no flow limiting stenosis bilateral carotid bifurcation. Normal [place] of [place]. Neurology is following Continue with fall precautions Continue cardiac monitoring Consult PT/OT Continue Lipitor 80 mg at bedtime Discontinue aspirin 81 mg daily as MRI is negative for acute or subacute stroke #. Acute urinary tract infection, present on admission Greater than 182 WBC, negative for nitrite, large amount of leukocyte esterase Patient denies urinary symptoms at this time. Continue Rocephin 1 g IV every 24 hours and pending results from repeat urinalysis and urine culture #. Elevated creatinine likely due to chronic kidney disease stage III Creatinine 1.67 Monitor morning BMP Continue Bumex 2 mg twice daily #. Diabetes mellitus, type II, uncontrolled with hyperglycemia Glucose 164 Hold oral diabetic medications at this time and will continue with sliding scale and recommend Accu-Cheks before meals and at bedtime. Adjust insulins ac cordingly # Morbid obesity with a BMI of 41.8 Chronic: #. History of atrial fibrillation Continued on apixaban 5 mg twice daily #. Hyperlipidemia Continue atorvastatin 80 mg at bedtime #. GERD Restart omeprazole 20 mg daily F: No restrictions, heart failure history E: Replete as needed N: Consistent carb diet A: EMS DVT prophylaxis: Apixaban 5 mg twice daily GI prophylaxis No code Objective - Vital Signs Vital signs: Vital Signs Temp 97.7 F 06/20/24 08:00 Pulse 90 06/20/24 12:00 Resp 18 06/20/24 12:00 BP 150/89 06/20/24 12:00 Pulse Ox 100 06/20/24 12:00 FiO2 Intake & Output 06/19/24 06/20/24 06/20/24 18:59 06:59 18:59 Intake Total 800 50 480 Output Total 1200 950 900 Balance -400 -900 -420 Weight 132 kg Intake: Oral 800 50 480 Output: Urine 1200 950 900 Other: Voiding Method External Catheter External Catheter External Catheter - Labs CBC & Chem 7: 06/19/24 06:27 06/20/24 06:16 Labs: Abnormal Lab Results - Last 24 Hours (Table) 06/19/24 06/19/24 06/19/24 Range/Units 16:56 20:44 21:42 BUN (9-20) mg/dL Creatinine (0.66-1.25) mg/dL Glucose (74-99) mg/dL POC Glucose (mg/dL) 137 H 157 H 162 H (70-110) mg/dL 06/20/24 06/20/24 06/20/24 Range/Units 06:01 06:16 11:49 BUN 21 H (9-20) mg/dL Creatinine 1.37 H (0.66-1.25) mg/dL Glucose 127 H (74-99) mg/dL POC Glucose (mg/dL) 120 H 194 H (70-110) mg/dL
[2024-06-20 16:52] LABS: Glucose,Whole Blood 157 mg/dL (70-110)
[2024-06-20 20:23] LABS: Glucose,Whole Blood 161 mg/dL (70-110)
[2024-06-21 06:05] LABS: Glucose,Whole Blood 134 mg/dL (70-110)
[2024-06-21 08:15] LABS: Basophils % (A) 1 %; Eosinophils # (A) 0.1 k/uL (0-0.7); Eosinophils % (A) 2 %; HCT 42.4 % (39.0-53.0); HGB 13.8 gm/dL (13.0-17.5); Hypochromasia Slight; Lymphocytes # (A) 1.4 k/uL (1.0-4.8); Lymphocytes % (A) 16 %; MCH 30.9 pg (25.0-35.0); MCHC 32.5 g/dL (31.0-37.0); MCV 95.2 fL (80.0-100.0); Mean Platelet Volume 8.5; Monocytes # (A) 0.9 k/uL (0-1.0); Monocytes % (A) 10 %; Neutrophils # (A) 6.3 k/uL (1.3-7.7); Neutrophils % (A) 71 %; Platelet Count 256 k/uL (150-450); RBC 4.45 m/uL (4.30-5.90); RDW 15.3 % (11.5-15.5)
[2024-06-21 08:31] LABS: African American GFR (CKD) 55 (>60 ml/min/1.73 sqM); Anion Gap 12 mmol/L; Blood Urea Nitrogen 22 mg/dL (9-20); Calcium 9.2 mg/dL (8.4-10.2); Carbon Dioxide 28 mmol/L (22-30); Chloride 98 mmol/L (98-107); Glucose 130 mg/dL (74-99); Non-African American GFR(CKD) 48 (>60 ml/min/1.73 sqM); Potassium 3.9 mmol/L (3.5-5.1); Sodium 138 mmol/L (137-145)
[2024-06-21 09:14] VITALS: RESP 20
[2024-06-21 11:21] LABS: Glucose,Whole Blood 142 mg/dL (70-110)
--- NOTE | 2024-06-21 12:27 | P.DS ---
Providers Date of admission: 06/19/24 07:00 Expected date of discharge: 06/21/24 Attending physician: Maylin Luis Consults: 06/17/24 22:13 Consult Physician Routine Consulting Provider: Antoine Alvarez Consult Reason/Comments: tia Do you want consulting provider notified?: Yes Primary care physician: Nabila Chowdhury DO Hospital Course: Hospital course: Patient is a 78-year-old male with paroxysmal atrial fibrillation, history of chest pain/angina, heart failure with most recent LVEF estimated at 55 to 60% (Per echocardiogram done in 2022), history of CVA/TIA, diabetes mellitus, GERD, hyperlipidemia, chronic kidney disease stage III, and obstructive sleep apnea presented to the emergency department via EMS with increasing weakness in the right arm and slurred speech that started last night. 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 Right-sided facial droop is old to this patient. Patient reported that last night he began to notice new onset slurred speech that lasted for 2 hours and then it went away afterwards. He also reported some perioral numbness around the same time. Patient reported that slurring of speech is something he has never experienced before. He does report a chronic right-sided weakness along with right-sided facial droop and slightly decreased sensation on the right side. He was seen at bedside in the ED. He still reports some right-sided weakness but is slurring of speech has improved. He denies other complaints at this time. Denies fever, chills, chest pain, shortness of breath, belly pain, dysuria, upper or lower extremity tingling or numbness. Patient's initial EKG showed atrial fibrillation with a ventricular rate of 65 bpm, QTc interval of [address] of brain shows no acute intracranial process. CT angio of head and neck showed no flow-limiting stenosis. Neurology was consulted and they ordered MRI and EEG for the patient. MRI showed no evidence of intracranial mass or acute/subacute infarct. EEG showed normal background and there is no epileptiform discharge or seizure on the EEG. Patient's symptoms gradually improved over the next few days. He was seen on 06/21/2024 at bedside. Reports no acute complaints. Patient was seen wearing nasal cannula at 3 L/min oxygen however he does wear 3 L at [facility]. States that slurring of speech has improved. Lipitor has been increased to 80 mg at bedtime from 40 mg. Patient is stable to be discharged back to [facility]. Patient is encouraged to follow-up with neurology 1 week post discharge. Physical examination at discharge: GENERAL: This is a 78-year-old in no apparent distress at the time of examination. Pleasant and cooperative. HEENT: Head is atraumatic, normocephalic. Pupils are equal, round, and reactive to light. Sclerae anicteric. Conjunctivae are clear. Mucus membranes of the mouth are moist. Neck is supple. RESPIRATORY: Clear to auscultation. No wheezes, rales, or rhonchi. No use of accessory muscles. Patient maintaining oxygen saturation greater than 92% on nasal cannula at 3 L/min. No chest wall tenderness is noted on palpation or with deep breathing. CARDIOVASCULAR: Regular rate and rhythm. S1 and S2 noted. No systolic or diastolic murmur auscultated. No JVD noted. No S3 or S4 noted. GASTROINTESTINAL: No distention noted. Abdomen soft and round. Normal active bowel sounds auscultated x 4 quadrants. No pain or tenderness noted upon palpation. INTEGUMENTARY: No cyanosis. No jaundice. No rashes noted. No cellulitis noted. EXTREMITIES: 2+ peripheral pulses. No evidence of peripheral edema. No calf tenderness noted. NEUROLOGIC: Cranial nerves II-XII intact. PSYCHIATRIC: Awake, alert, and oriented X 3. Appropriate affect. Intact judgement and insight. Patient Condition at Discharge: Fair Plan - Discharge Summary Discharge Rx Participant: No New Discharge Prescriptions: New Atorvastatin [Lipitor] 80 mg PO HS 30 Days #30 tab Continue Cholecalciferol [Vitamin D3 (25 Mcg = 1000 Iu)] 25 mcg PO DAILY@0600 polyethylene glycoL 3350 [Miralax] 17 gm PO BID PARoxetine [Paxil] 10 mg PO HS Tamsulosin [Flomax] 0.4 mg PO HS@2000 Apixaban [Eliquis] 5 mg PO BID Docusate [Colace] 100 mg PO BID Menthol [Biofreeze] 1 applic TOPICAL Q8H PRN PRN Reason: knee pain Potassium Chloride ER [K-Dur 10] 10 meq PO BID Acetaminophen Tab [Tylenol] 1,000 mg PO TID@0700,1300,1900 HYDROcodone/APAP 5-325MG [Hope 5-325] 1 tab PO Q8H PRN #4 tab PRN Reason: Pain Linaclotide [Linzess] 145 mcg PO DAILY@0600 Dapagliflozin Propanediol [Farxiga] 5 mg PO DAILY@0600 Fluoride (Sodium) [Sodium Fluoride 5000 Plus] 1 applic DENTAL HS Isosorbide Mononitrate ER [Imdur] 30 mg PO DAILY@0600 Lactulose [Cephulac] 30 gm PO DAILY@0700 Primidone [Mysoline] 50 mg PO HS Ranolazine [Ranexa] 500 mg PO BID Bumetanide [BUMEX] 2 mg PO BID Metoprolol Tartrate [Lopressor] 25 mg PO BID glipiZIDE [Glucotrol] 10 mg PO DAILY@0600 glipiZIDE [Glucotrol] 5 mg PO DAILY@1400 Baclofen 10 mg PO TID@0700,1300,1900 3 Days #9 tab Latanoprost [Latanoprost 0.005%] 1 drop LEFT EYE HS@1999 Naloxone HCl 0.4 mg SQ ONCE PRN PRN Reason: OVERDOSE Naloxone HCl [Narcan] 4 mg NASAL DIRECTED PRN PRN Reason: OVERDOSE Sennosides [Senokot] 17.2 mg PO BID Omeprazole 20 mg PO DAILY@0600 Mv-Min/FA/Vit K/Lutein/Zeaxant [Preservision Areds 2 Plus Mv] 1 cap PO DAILY@0700,1600 Gabapentin [Neurontin] 400 mg PO TID@0700,1300,1900 Discontinued Atorvastatin [Lipitor] 40 mg PO HS@1999 Discharge Medication List Cholecalciferol [Vitamin D3 (25 Mcg = 1000 Iu)] 25 mcg PO DAILY@0600 01/17/22 [History] PARoxetine [Paxil] 10 mg PO HS 01/17/22 [History] Primidone [Mysoline] 50 mg PO HS 01/17/22 [History] Tamsulosin [Flomax] 0.4 mg PO HS@199901/17/22 [History] polyethylene glycoL 3350 [Miralax] 17 gm PO BID 01/17/22 [History] Apixaban [Eliquis] 5 mg PO BID 08/04/22 [History] Docusate [Colace] 100 mg PO BID 09/07/22 [History] Ranolazine [Ranexa] 500 mg PO BID 09/07/22 [History] Bumetanide [BUMEX] 2 mg PO BID 01/06/23 [History] Menthol [Biofreeze] 1 applic TOPICAL Q8H PRN 01/06/23 [History] Metoprolol Tartrate [Lopressor] 25 mg PO BID 01/06/23 [History] glipiZIDE [Glucotrol] 5 mg PO DAILY@1400 01/21/23 [History] glipiZIDE [Glucotrol] 10 mg PO DAILY@0600 01/21/23 [History] Baclofen 10 mg PO TID@0700,1300,1900 3 Days #9 tab 01/25/23 [Rx] Latanoprost [Latanoprost 0.005%] 1 drop LEFT EYE HS@199906/06/23 [History] Potassium Chloride ER [K-Dur 10] 10 meq PO BID 06/06/23 [History] Naloxone HCl 0.4 mg SQ ONCE PRN 08/18/23 [History] Naloxone HCl [Narcan] 4 mg NASAL DIRECTED PRN 08/18/23 [History] Acetaminophen Tab [Tylenol] 1,000 mg PO TID@0700,1300,1900 11/13/23 [History] Sennosides [Senokot] 17.2 mg PO BID 11/13/23 [History] HYDROcodone/APAP 5-325MG [Hope 5-325] 1 tab PO Q8H PRN #4 tab 11/16/23 [Rx] Dapagliflozin Propanediol [Farxiga] 5 mg PO DAILY@0605/31/24 [History] Linaclotide [Linzess] 145 mcg PO DAILY@59905/31/24 [History] Mv-Min/FA/Vit K/Lutein/Zeaxant [Preservision Areds 2 Plus Mv] 1 cap PO DAILY@0700,1600 05/31/24 [History] Omeprazole 20 mg PO DAILY@59905/31/24 [History] Fluoride (Sodium) [Sodium Fluoride 5000 Plus] 1 applic DENTAL HS 06/18/24 [History] Gabapentin [Neurontin] 400 mg PO TID@0700,1300,1900 06/18/24 [History] Isosorbide Mononitrate ER [Imdur] 30 mg PO DAILY@0600 06/18/24 [History] Lactulose [Cephulac] 30 gm PO DAILY@0700 06/18/24 [History] Atorvastatin [Lipitor] 80 mg PO HS 30 Days #30 tab 06/21/24 [Rx] Follow up Appointment(s)/Referral(s): Nabila Chowdhury DO [Primary Care Provider] - 1-2 days Discharge Disposition: HOME SELF-CARE
[2024-06-21 15:20] VITALS: PULSE 72; TEMP 97.7
[2024-06-21 15:51] VITALS: BP 156/106
--- NOTE | 2024-06-28 05:51 | CDI ---
Documentation Clarification Form Date: 06/28/2024 05:40:04 AM From: Alessandra Talley Admit Date: 06/19/2024 07:00:00 AM Patient Name: Babar Altamirano Visit Number: [id number] Discharge Date: 06/21/2024 04:18:00 PM ATTENTION: The Clinical Documentation Specialists (CDI) and [facility] Coding Staff appreciate your assistance in clarifying documentation. Please respond to the clarification below the line at the bottom and electronically sign. The CDI & [facility] Coding staff will review the response and follow-up if needed. Please note: Queries are made part of the Legal Health Record. If you have any questions, please contact the author of this message via ITS. Doctor/Provider: Holli Mcdonough Conflicting documentation has been found in the medical record. As attending physician, please provide clarification. Per H and P Acute Stroke/TIA Per neurology PN 06/19 Symptoms provoked because of suspected UTI, MRI brain is unremarkable for any acute process. Seems the patient has old stroke. History/Risk Factors: Personal history of strokes and TIA with deficits, facial droop and hemiplegia. facial droop and dysarthria. Clinical Indicators: Positive UA with many bacteria Treatment: Rocephin Please clarify which diagnosis is most appropriate: [ ] Acute CVA [ ] Acute TIA [x ] Acute urinary tract infection POA [ ] Other (please specify) [ ] Unable to determine MTDD
== END 2024-06-21 16:18 ==
LOC: EC 21:19 → 3SCARD 22:12 → UNDOADMIN 22:12 → 3SCARD 06-18 06:10 → 2SICU 06-18 15:10 → OBSVTOIN 06-19 07:00 → INTOOBSV 06-19 07:00 → 3SCARD 06-19 23:32 → UNDODISIN 06-21 16:18
PROVIDERS: ADMIT Hospitalist; ATTEND Hospitalist
DX: N39.0 Urinary tract infection, site not specified (principal); E11.22 Type 2 diabetes mellitus with diabetic chronic kidney disease; N18.30 Chronic kidney disease, stage 3 unspecified; I69.359 Hemiplegia and hemiparesis following cerebral infarction affecting unspecified side; I69.392 Facial weakness following cerebral infarction; I69.322 Dysarthria following cerebral infarction; E11.65 Type 2 diabetes mellitus with hyperglycemia; G47.33 Obstructive sleep apnea (adult) (pediatric); E11.40 Type 2 diabetes mellitus with diabetic neuropathy, unspecified; I50.9 Heart failure, unspecified; H53.462 Homonymous bilateral field defects, left side; R20.0 Anesthesia of skin; R47.81 Slurred speech; E78.5 Hyperlipidemia, unspecified; I48.0 Paroxysmal atrial fibrillation; K21.9 Gastro-esophageal reflux disease without esophagitis; E66.01 Morbid (severe) obesity due to excess calories; Z68.41 Body mass index [BMI] 40.0-44.9, adult; Z79.01 Long term (current) use of anticoagulants; Z79.84 Long term (current) use of oral hypoglycemic drugs; Z79.899 Other long term (current) drug therapy
CPT/HCPCS: 96361 ×3; 96365; 96366; 99285; 36415; 94760; 95816; 93005; 97163; 97165; 92523; 83880; 80061; 80053; 80048 ×3; 82550; 84484; 85025 ×3; 85610; 85730; 81001; 83036; 71045; 70496; 70450; 70498; 70551; G0378 ×6; J0696 ×2; Q9967; 96360